=== PATIENT | male | born 1955 | race Hispanic/Latino ===

== ENCOUNTER 2019-10-28 19:11 | Emergency (ER) | payer MEDICARE ==
[~2019-10-28] VITALS: Ht 172.7 cm; Wt 83.9 kg
[~2019-10-28 19:11] MED LIST: ALLOPURINOL100 MG; ATENOLOL25 MG; AVODART0.5 MG PO; DOXAZOSIN MESYLA1 MG; NAPROXEN250 MG; ULTRAM50 MG PO
--- OUTSIDE RECORDS SUMMARY | 2019-10-28 19:16 | XMS REPORT ---
[facility] Address Unknown Phone Unavailable Care Team Providers Care Clinic Charge Nurse Name Role Phone BALDO MONDRAGON Unavailable Unavailable LARY LLAMAS Unavailable Unavailable JABARI MEYER Unavailable Unavailable Payers Payer Name Policy Type Policy Number Effective Date Expiration Date Problems This patient has no known problems. Allergies, Adverse Reactions, Alerts Allergy Name Allergy Type Status Severity Reaction(s) Onset Date Inactive Date Treating Clinician Comments ashley DA Active SV 2016-03-27 00:00:00 Medications This patient has no known medications. Encounters Start Date/Time End Date/Time Encounter Type Admission Type Attending Clinicians Care Facility Care Department Encounter ID 2019-01-06 08:19:31 2019-01-06 08:19:31 Outpatient [facility] [id number] 2018-12-23 08:22:31 2018-12-23 08:22:31 Outpatient [facility] [id number] 2018-12-17 16:57:05 2018-12-17 16:57:05 Outpatient [facility] [id number] 2018-12-16 00:00:00 2018-12-16 00:00:00 Outpatient [facility] [id number] 2018-12-13 00:00:00 2018-12-13 00:00:00 Outpatient [facility] [id number] 2018-12-12 12:13:44 2018-12-12 12:13:44 Emergency [facility] [id number] 2018-12-12 11:35:30 2018-12-12 11:35:30 Emergency [facility] [id number] 2018-12-12 00:00:00 2018-12-12 00:00:00 Outpatient [facility] [id number] 2018-12-12 00:00:00 2018-12-12 00:00:00 Emergency [facility] [id number] 2018-12-12 00:00:00 2018-12-12 00:00:00 Emergency [facility] [id number] Results Test Description Test Time Test Comments Text Results Atomic Results Result Comments - XR HIP W/PEL UNI 2+V 2019-01-24 10:29:00 [facility]: [facility] : 1955 Age/S:63 /M [address] [place] [address] Unit#:[id number] Loc: [place] [address] Phys: Rickey Patiño MD Dis Date: PHONE #: [phone] Status: REG ER FAX #: [phone] Exam Date: 01/24/2019 Reason: trauma, pain EXAMS: CPT CODE: [id number] XR HIP W/PEL UNI 2+V 23579 CLINICAL HISTORY: trauma, pain TECHNIQUE: Neutral and frog leg AP views of the left hip COMPARISON: None FINDINGS: No acute fracture. Left hip joint is not dislocated. Mild bilateral hip degenerative arthrosis. Visualized bony pelvis is intact. Bony trabecular pattern is unremarkable. Bilateral inguinal surgical clips. Atherosclerotic vascular calcification. Regional soft tissues are unremarkable. Degenerative changes of the included lower lumb ar spine. IMPRESSION: No acute fracture or dislocation of the left hip. at 1029 Reported and signed by: Nora Stein D.O. CC: Rickey Patiño MD; Rito Barnes Technologist: Suman Briceno RT(R)(CT) Trnscrpt Data: 01/24/2019 (1029) KoryLDP1 Orig Print D/T: S: 01/24/2019 (1032) PAGE 1 Signed Report - XR KNEE 3 V 2019-01-24 10:29:00 Name: TERESA [facility] : 1955 Age/S:63 /M [address] [place] [address] Unit#:[id number] Loc: [place] [address] Phys: Rickey Patiño MD Dis Date: PHONE #: [phone] Status: REG ER FAX #: [phone] Exam Date: 01/24/2019 Reason: fall EXAMS: CPT CODE: [id number] XR KNEE 3 V LT 46585 CLINICAL HISTORY: Pain status post fall TECHNIQUE: AP, oblique, and lateral views of the left knee COMPARISON: None FINDINGS: No acute fracture or dislocation. Bony trabecular pattern is unremarkable. No cortical destruction or periosteal reaction. Joint spaces are preserved. No joint effusion. Atherosclerotic vascular calcification. Prepatellar soft tissue swelling. IMPRESSION: No acute fracture or dislocation. Prepatellar soft tissue swelling. at 1029 Reported and signed by: Nora Stein D.O. CC: Rickey Patiño MD; Rito Barnes Technologist: Suman Briceno RT(R)(CT) Trnscrpt Data: 01/24/2019 (1029) t.ELLIR.LDP1 Orig Print D/T: S: 01/24/2019 (4268) PAGE 1 Signed Report - US ABDOMEN COMPLETE 2018-12-25 10:55:00 Name: TERESA WARD [facility] : 1955 Age/S: 63 / M [address] [facility] Unit #: [id number] Loc: [place] [address] Phys: Davida Sanchez MD Acct: [id number] Dis Date: Status: REG CLI PHONE #: [phone] Exam Date: 12/25/2018 1018 FAX #: [phone] Reason: CIRRHOSIS EXAMS: CPT CODE: [id number] US ABDOMEN COMPLETE 71290 TECHNIQUE - US ABDOMEN COMPLETE . COMPARISON: CT abdomen and pelvis 01/04/2016 HISTORY: 63 years Male CIRRHOSIS FINDINGS: Pancreas: Normal in size and echogenicity. No focal lesions or pancreatic duct dilatation. Liver: Normal size. Normal echogenicity. No focal lesions. Liver measures 15 cm. Normal flow in the portal vein towards the liver. Gallbladder: Cholecystectomy. Smith iary ducts: No intra or extrahepatic biliary dilatation. Common bile duct (CBD) measures 0.22 cm. Spleen: Normal echogenicity. Spleen measures 8.9 x 4.3 x 3.7 cm.. Right Kidney: 11.6 x 4.8 x 5.0 cm. Normal echogenicity. 4 mm right renal pelvic stone. No hydronephrosis. No focal lesions. Left Kidney: 10.8 x 5.7 x 5.5 cm. Normal echogenicity. No stones. No hydronephrosis. 1.5 cm left kidney cyst. Small amount of perinephric fluid bilaterally. Other: No ascites. No inferior vena cava abnormalities. Abdominal aorta is not well-seen. IMPRESSION: Cholecystectomy. 4 mm right renal pelvic stone. 1.5 cm left kidney cyst. at 1051 Reported and signed by: Rito Aguilera M.D. PAGE 1 Signed Report (CONTINUED) Name: TERESA WARD [facility] : 1955 Age/S: 63 / M [address] [facility] Unit #: [id number] Loc: [place] [address] Phys: Davida Sanchez MD Acct: [id number] Dis Date: Status: REG CLI PHONE #: [phone] Exam Date: 1018 FAX #: [phone] Reason: CIRRHOSIS EXAMS: CPT CODE: [id number] US ABDOMEN COMPLETE 64407 <Continued> CC: Davida Sanchez MD; Rito Barnes [facility] Technologist: EDWARD DYE RT(R),[facility]MS [facility] Date/Time: 12/25/2018 (1055) t.FLORIDALMA Orig Print D/T: S: 12/25/2018 (1057) Probe: PAGE 2 Signed Report TISSUE EXAM 2017-02-26 16:06:00 Surgical Pathology Report Case: [id number] Authorizing Provider: Aaron Mccullough Collected: 02/22/2017 1637 Ord ering Location: [address] Received: 02/24/2017 0912 Service Pathologist: Lela Saravia MD Specimen: Biopsy, Esophagus LOWER ESOPHAGUS, ENDOSCOPIC BIOPSY - SQUAMOUS MUCOSA WITH MILD EDEMA - NO FEATURES OF REFLUX OR EOSINOPHILIC ESOPHAGITIS SEEN - NO COLUMNAR MUCOSA PRESENT - NO DYSPLASIA OR MALIGNANCY SEENThe case was presented at the departmental consensus conference on 02/26/17 Signing Pathologist Direct Phone Line: [phone] signed by Lela Saravia MD on 02/26/2017 at 4:06 [id number] biopsyReceived in formalin labeled "biopsy, esophagus" are four fragments measuring 0.9 x 0.8 x 0.1 cm in aggregate. Entirely submitted A1. DB/plPERFORMED COMPREHENSIVE METABOLIC PANEL 2017-02-23 06:01:00 TOTAL PROTEIN (BEAKER) (test zxqp=891) 6.8 gm/dL 6.0-8.3 ALBUMIN (BEAKER) (test okkn=8691) 3.4 g/dL 3.5-5.0 ALKALINE PHOSPHATASE (BEAKER) (test vowc=024) 87 U/L 40-150 BILIRUBIN TOTAL (BEAKER) (test qxuy=023) 0.8 mg/dL 0.2-1.2 SODIUM (BEAKER) (test duin=317) 141 meq/L 136-145 POTASSIUM (BEAKER) (test xsfv=200) 3.9 meq/L 3.5-5.1 CHLORIDE (BEAKER) (test nnmk=009) 108 meq/L 98-107 CO2 (BEAKER) (test lozc=497) 23 meq/L 22-29 BLOOD UREA NITROGEN (BEAKER) (test gzsz=278) 19 mg/dL 7-21 CREATININE (BEAKER) (test wnxi=120) 0.94 mg/dL 0.57-1.25 GLUCOSE RANDOM (BEAKER) (test rnts=408) 83 mg/dL 70-105 CALCIUM (BEAKER) (test lynw=281) 8.7 mg/dL 8.4-10.2 AST (SGOT) (BEAKER) (test fzis=029) 18 U/L 5-34 ALT (SGPT) (BEAKER) (test jrqf=253) 12 U/L 6-55 EGFR (BEAKER) (test pump=8771) 81 mL/min/1.73 sq m ESTIMATED GFR IS NOT ACCURATE CREATININE CLEARANCE IN PREDICTING GLOMERULAR FILTRATION RATE. ESTIMATED GFR IS NOT APPLICABLE FOR DIALYSIS PATIENTS. CBC W/PLT COUNT & AUTO [id number] 05:28:00* Test Item Value Reference Range Comments WHITE BLOOD CELL COUNT (BEAKER) (test efwq=812) 5.7 K/ L 3.5-10.5 RED BLOOD CELL COUNT (BEAKER) (test cuds=464) 3.17 M/ L 4.63-6.08 HEMOGLOBIN (BEAKER) (test tjbh=908) 9.5 GM/DL 13.7-17.5 HEMATOCRIT (BEAKER) (test spya=565) 30.3 % 40.1-51.0 MEAN CORPUSCULAR VOLUME (BEAKER) (test gcyc=249) 95.6 fL 79.0-92.2 MEAN CORPUSCULAR HEMOGLOBIN (BEAKER) (test efvq=371) 30.0 pg 25.7-32.2 MEAN CORPUSCULAR HEMOGLOBIN CONC (BEAKER) (test bjxe=884) 31.4 GM/DL 32.3-36.5 RED CELL DISTRIBUTION WIDTH (BEAKER) (test erem=704) 15.6 % 11.6-14.4 PLATELET COUNT (BEAKER) (test xout=969) 166 K/CU MM 150-450 MEAN PLATELET VOLUME (BEAKER) (test olxt=710) 9.0 fL 9.4-12.4 NUCLEATED RED BLOOD CELLS (BEAKER) (test htor=128) 0 /100 WBC 0-0 NEUTROPHILS RELATIVE PERCENT (BEAKER) (test tlkb=064) 65 % LYMPHOCYTES RELATIVE PERCENT (BEAKER) (test lqhq=022) 21 % MONOCYTES RELATIVE PERCENT (BEAKER) (test jjpd=372) 10 % EOSINOPHILS RELATIVE PERCENT (BEAKER) (test hlra=993) 3 % BASOPHILS RELATIVE PERCENT (BEAKER) (test xqee=749) 1 % NEUTROPHILS ABSOLUTE COUNT (BEAKER) (test ithz=293) 3.70 K/ L 1.78-5.38 LYMPHOCYTES ABSOLUTE COUNT (BEAKER) (test vvdx=435) 1.21 K/ L 1.32-3.57 MONOCYTES ABSOLUTE COUNT (BEAKER) (test sihi=305) 0.58 K/ L 0.30-0.82 EOSINOPHILS ABSOLUTE COUNT (BEAKER) (test abyu=126) 0.16 K/ L 0.04-0.54 BASOPHILS ABSOLUTE COUNT (BEAKER) (test zdtt=613) 0.04 K/ L 0.01-0.08 IMMATURE GRANULOCYTES-RELATIVE PERCENT (BEAKER) (test mkwg=6753) 0 % 0-1 [id number] 06:49:00* Test Item Value Reference Range Comments PHOSPHORUS (BEAKER) (test movg=602) 4.0 mg/dL 2.3-4.7 [id number] 06:49:00* Test Item Value Reference Range Comments MAGNESIUM (BEAKER) (test xdzg=029) 1.9 mg/dL 1.6-2.6 COMPREHENSIVE METABOLIC [id number] 06:49:00* Test Item Value Reference Range Comments TOTAL PROTEIN (BEAKER) (test qipt=845) 7.2 gm/dL 6.0-8.3 ALBUMIN (BEAKER) (test kzwk=3026) 3.6 g/dL 3.5-5.0 ALKALINE PHOSPHATASE (BEAKER) (test vavi=650) 89 U/L 40-150 BILIRUBIN TOTAL (BEAKER) (test cxzl=584) 1.1 mg/dL 0.2-1.2 SODIUM (BEAKER) (test daes=495) 139 meq/L 136-145 POTASSIUM (BEAKER) (test thdn=708) 3.8 meq/L 3.5-5.1 CHLORIDE (BEAKER) (test molz=969) 106 meq/L 98-107 CO2 (BEAKER) (test lreg=300) 24 meq/L 22-29 BLOOD UREA NITROGEN (BEAKER) (test wito=700) 24 mg/dL 7-21 CREATININE (BEAKER) (test hdab=611) 1.15 mg/dL 0.57-1.25 GLUCOSE RANDOM (BEAKER) (test vxdo=868) 88 mg/dL 70-105 CALCIUM (BEAKER) (test cypw=782) 8.8 mg/dL 8.4-10.2 AST (SGOT) (BEAKER) (test qdpt=360) 19 U/L 5-34 ALT (SGPT) (BEAKER) (test ihmc=653) 15 U/L 6-55 EGFR (BEAKER) (test tgyv=6472) 64 mL/min/1.73 sq m ESTIMATED GFR IS NOT ACCURATE CREATININE CLEARANCE IN PREDICTING GLOMERULAR FILTRATION RATE. ESTIMATED GFR IS NOT APPLICABLE FOR DIALYSIS PATIENTS. CBC W/PLT COUNT & AUTO [id number] 05:59:00* Test Item Value Reference Range Comments WHITE BLOOD CELL COUNT (BEAKER) (test kosy=807) 5.1 K/ L 3.5-10.5 RED BLOOD CELL COUNT (BEAKER) (test hsnk=623) 3.28 M/ L 4.63-6.08 HEMOGLOBIN (BEAKER) (test imss=582) 9.9 GM/DL 13.7-17.5 HEMATOCRIT (BEAKER) (test twod=010) 31.9 % 40.1-51.0 MEAN CORPUSCULAR VOLUME (BEAKER) (test qfon=748) 97.3 fL 79.0-92.2 MEAN CORPUSCULAR HEMOGLOBIN (BEAKER) (test hhqn=634) 30.2 pg 25.7-32.2 MEAN CORPUSCULAR HEMOGLOBIN CONC (BEAKER) (test gnlu=429) 31.0 GM/DL 32.3-36.5 RED CELL DISTRIBUTION WIDTH (BEAKER) (test dfoz=194) 15.9 % 11.6-14.4 PLATELET COUNT (BEAKER) (test wrml=487) 164 K/CU MM 150-450 MEAN PLATELET VOLUME (BEAKER) (test osdc=003) 9.1 fL 9.4-12.4 NUCLEATED RED BLOOD CELLS (BEAKER) (test xyex=237) 0 /100 WBC 0-0 NEUTROPHILS RELATIVE PERCENT (BEAKER) (test ebuc=833) 59 % LYMPHOCYTES RELATIVE PERCENT (BEAKER) (test qccv=177) 25 % MONOCYTES RELATIVE PERCENT (BEAKER) (test axsx=077) 11 % EOSINOPHILS RELATIVE PERCENT (BEAKER) (test nrme=033) 4 % BASOPHILS RELATIVE PERCENT (BEAKER) (test vzdk=220) 1 % NEUTROPHILS ABSOLUTE COUNT (BEAKER) (test iyzc=398) 3.03 K/ L 1.78-5.38 LYMPHOCYTES ABSOLUTE COUNT (BEAKER) (test drey=339) 1.28 K/ L 1.32-3.57 MONOCYTES ABSOLUTE COUNT (BEAKER) (test xtfy=272) 0.57 K/ L 0.30-0.82 EOSINOPHILS ABSOLUTE COUNT (BEAKER) (test gtvn=695) 0.19 K/ L 0.04-0.54 BASOPHILS ABSOLUTE COUNT (BEAKER) (test kotr=976) 0.04 K/ L 0.01-0.08 IMMATURE GRANULOCYTES-RELATIVE PERCENT (BEAKER) (test thwv=3499) 0 % 0-1 [id number] 03:59:00* Test Item Value Reference Range Comments PROTIME (BEAKER) (test lnxz=382) 15.1 seconds 11.7-14.7 INR (BEAKER) (test hejy=745) 1.2 <=5.9 PARTIAL THROMBOPLASTIN TIME (BEAKER) (test pxuc=682) 28.6 seconds 22.5-36.0 RECOMMENDED COUMADIN/WARFARIN INR THERAPY RANGESSTANDARD DOSE: 2.0 - 3.0 Inclu prabhakar: PROPHYLAXIS for venous thrombosis, systemic embolization; TREATMENT for marian ous thrombosis and/or pulmonary embolus.HIGH RISK: Target INR is 2.5-3.5 for pat ients with mechanical heart valves.[id number] 03:54:00* Test Item Value Reference Range Comments LIPASE (BEAKER) (test olws=043) 38 U/L 8-78 [id number] 03:54:00* Test Item Value Reference Range Comments AMYLASE (BEAKER) (test hutb=727) 68 U/L 25-125 COMPREHENSIVE METABOLIC [id number] 03:54:00* Test Item Value Reference Range Comments TOTAL PROTEIN (BEAKER) (test fnqf=047) 7.9 gm/dL 6.0-8.3 ALBUMIN (BEAKER) (test bmzu=1271) 3.9 g/dL 3.5-5.0 ALKALINE PHOSPHATASE (BEAKER) (test nxgy=675) 106 U/L 40-150 BILIRUBIN TOTAL (BEAKER) (test iigz=424) 0.9 mg/dL 0.2-1.2 SODIUM (BEAKER) (test rrvx=475) 142 meq/L 136-145 POTASSIUM (BEAKER) (test majc=161) 3.9 meq/L 3.5-5.1 CHLORIDE (BEAKER) (test lcfm=256) 105 meq/L 98-107 CO2 (BEAKER) (test bqcf=438) 25 meq/L 22-29 BLOOD UREA NITROGEN (BEAKER) (test kycl=811) 20 mg/dL 7-21 CREATININE (BEAKER) (test kfuh=444) 1.05 mg/dL 0.57-1.25 GLUCOSE RANDOM (BEAKER) (test fdph=231) 103 mg/dL 70-105 CALCIUM (BEAKER) (test dbuv=269) 9.6 mg/dL 8.4-10.2 AST (SGOT) (BEAKER) (test vtbp=575) 22 U/L 5-34 ALT (SGPT) (BEAKER) (test kzka=715) 19 U/L 6-55 EGFR (BEAKER) (test nqvm=0852) 71 mL/min/1.73 sq m ESTIMATED GFR IS NOT ACCURATE CREATININE CLEARANCE IN PREDICTING GLOMERULAR FILTRATION RATE. ESTIMATED GFR IS NOT APPLICABLE FOR DIALYSIS PATIENTS. HEPATIC FUNCTION [id number] 03:54:00* Test Item Value Reference Range Comments TOTAL PROTEIN (BEAKER) (test jqkp=004) 7.9 gm/dL 6.0-8.3 ALBUMIN (BEAKER) (test jokq=2002) 3.9 g/dL 3.5-5.0 BILIRUBIN TOTAL (BEAKER) (test xzxz=779) 0.9 mg/dL 0.2-1.2 BILIRUBIN DIRECT (BEAKER) (test yhaj=612) 0.4 mg/dL 0.1-0.5 ALKALINE PHOSPHATASE (BEAKER) (test eeol=539) 106 U/L 40-150 AST (SGOT) (BEAKER) (test endi=024) 22 U/L 5-34 ALT (SGPT) (BEAKER) (test ysfv=633) 19 U/L 6-55 CBC W/PLT COUNT & AUTO [id number] 03:41:00* Test Item Value Reference Range Comments WHITE BLOOD CELL COUNT (BEAKER) (test nqpg=449) 6.7 K/ L 3.5-10.5 RED BLOOD CELL COUNT (BEAKER) (test cpmw=010) 3.69 M/ L 4.63-6.08 HEMOGLOBIN (BEAKER) (test mjpw=681) 10.9 GM/DL 13.7-17.5 HEMATOCRIT (BEAKER) (test samz=664) 35.2 % 40.1-51.0 MEAN CORPUSCULAR VOLUME (BEAKER) (test asyx=218) 95.4 fL 79.0-92.2 MEAN CORPUSCULAR HEMOGLOBIN (BEAKER) (test vins=683) 29.5 pg 25.7-32.2 MEAN CORPUSCULAR HEMOGLOBIN CONC (BEAKER) (test hxvo=582) 31.0 GM/DL 32.3-36.5 RED CELL DISTRIBUTION WIDTH (BEAKER) (test gaqn=504) 15.7 % 11.6-14.4 PLATELET COUNT (BEAKER) (test obix=114) 188 K/CU MM 150-450 MEAN PLATELET VOLUME (BEAKER) (test itqx=391) 8.8 fL 9.4-12.4 NUCLEATED RED BLOOD CELLS (BEAKER) (test ocqs=762) 0 /100 WBC 0-0 NEUTROPHILS RELATIVE PERCENT (BEAKER) (test wllv=130) 66 % LYMPHOCYTES RELATIVE PERCENT (BEAKER) (test qhag=582) 22 % MONOCYTES RELATIVE PERCENT (BEAKER) (test attn=055) 10 % EOSINOPHILS RELATIVE PERCENT (BEAKER) (test bzut=272) 1 % BASOPHILS RELATIVE PERCENT (BEAKER) (test ywrx=452) 1 % NEUTROPHILS ABSOLUTE COUNT (BEAKER) (test achi=051) 4.41 K/ L 1.78-5.38 LYMPHOCYTES ABSOLUTE COUNT (BEAKER) (test cffi=521) 1.43 K/ L 1.32-3.57 MONOCYTES ABSOLUTE COUNT (BEAKER) (test aqqj=869) 0.66 K/ L 0.30-0.82 EOSINOPHILS ABSOLUTE COUNT (BEAKER) (test rwkt=687) 0.09 K/ L 0.04-0.54 BASOPHILS ABSOLUTE COUNT (BEAKER) (test vspm=446) 0.04 K/ L 0.01-0.08 IMMATURE GRANULOCYTES-RELATIVE PERCENT (BEAKER) (test bgfa=4575) 0 % 0-1 HEMOGLOBIN AND [id number] 11:59:00* Test Item Value Reference Range Comments HEMOGLOBIN (BEAKER) (test onfj=930) 10.0 GM/DL 13.7-17.5 HEMATOCRIT (BEAKER) (test wunp=466) 31.5 % 40.1-51.0 TISSUE [id number] 11:34:00Surgical Pathology Report Case: [id number] Authorizing Provider: Leeanna Ma MD Collected: 02/03/2017 3082 Ordering Location: [address] Received: 02/03/2017 8573 Pathologist: Lela Saravia MD Specimens: A) - Antrum, bx r/o h pylori evaluate atrophic gastritis B) - Gastric, BX R/O H PYLORI EVALUATE ATROPHIC GASTRITIS This addendum is issued to report the result of immunohistochemical stain for Helicobacter pylori on specimen A: - NegativeCPT code: [id number] electronically signed by Lela Saravia MD on 02/05/2017 at 11:34 AMA.STOMACH, ANTRUM, ENDOSCOPIC BIOPSY: - CHRONIC GASTRITIS WITH MICROFOCAL ACTIVITY AND VERY FOCAL INTESTINAL METAPLASIA - NO HELICOBACTER PYLORI-LIKE ORGANISMS SEEN ON WARTHIN-STARRY STAIN - BACTERIAL COLONIES. NON-SPECIFIC - NEGATIVE FOR DYSPLASIA OR MALIGNANCY B.STOMACH, ENDOSCOPIC BIOPSY: - OXYNTIC MUCOSA WITH MILD CHRONIC GASTRITIS - NO FEATURES OF ATROPHIC GASTRITIS SEEN - NO HELICOBACTER PYLORI-LIKE ORGANISMS SEEN ON WARTHIN-STARRY STAIN - NEGATIVE FOR DYSPLASIA OR MALIGNANCY 67366 X 2; 63447 X 2Melena, rule out H. Pylori, rule out atrophic gastritis A. Antrum biopsy B. Gastric biopsy Specimen A: Received in formalin labeled "antrum" are two fragments each measuring 0.2 cm in greatest dimension. The specimen is entirely submitted in A1.Specimen B: Received in formalin labeled "gastric" is a single fragment measuring 0.4 cm in greatest dimension. The specimen is entirely submitted in B1. DB/ew PERFORMEDThe following special studies were performed on this case and the interpretation is incorporated in the diagnostic report above:WARTHIN-STARRY X 2HEMOGLOBIN AND [id number] 04:18:00* Test Item Value Reference Range Comments HEMOGLOBIN (BEAKER) (test mcbv=980) 8.2 GM/DL 13.7-17.5 HEMATOCRIT (BEAKER) (test lpnw=238) 26.0 % 40.1-51.0 CBC (HEMOGRAM ONLY)2017-02-05 04:18:00* Test Item Value Reference Range Comments WHITE BLOOD CELL COUNT (BEAKER) (test vbxj=849) 5.3 K/ L 3.5-10.5 RED BLOOD CELL COUNT (BEAKER) (test aeyh=847) 2.72 M/ L 4.63-6.08 HEMOGLOBIN (BEAKER) (test wntb=268) 8.2 GM/DL 13.7-17.5 HEMATOCRIT (BEAKER) (test qdxf=497) 26.0 % 40.1-51.0 MEAN CORPUSCULAR VOLUME (BEAKER) (test mqal=088) 95.6 fL 79.0-92.2 MEAN CORPUSCULAR HEMOGLOBIN (BEAKER) (test ynqy=412) 30.1 pg 25.7-32.2 MEAN CORPUSCULAR HEMOGLOBIN CONC (BEAKER) (test icaw=739) 31.5 GM/DL 32.3-36.5 RED CELL DISTRIBUTION WIDTH (BEAKER) (test tuhr=451) 15.3 % 11.6-14.4 PLATELET COUNT (BEAKER) (test psta=953) 124 K/CU MM 150-450 MEAN PLATELET VOLUME (BEAKER) (test jttf=027) 9.6 fL 9.4-12.4 NUCLEATED RED BLOOD CELLS (BEAKER) (test vzpr=931) 0 /100 WBC 0-0 HEMOGLOBIN AND [id number] 21:26:00* Test Item Value Reference Range Comments HEMOGLOBIN (BEAKER) (test wirk=490) 7.7 GM/DL 13.7-17.5 HEMATOCRIT (BEAKER) (test jvze=100) 24.6 % 40.1-51.0 [id number] 19:21:00* Test Item Value Reference Range Comments FERRITIN (BEAKER) (test piaa=489) 36 ng/mL 5-275 Effective 05/24/2014: Reference Range ChangeNew: Male 5-275 Previous: Male 22-322 Female 5-275 Female 10-291 IRON, TIBC, % SAT. (WITHOUT FERRITIN)2017-02-04 19:01:00* Test Item Value Reference Range Comments IRON (BEAKER) (test johi=584) 12 ug/dL 40-160 TOTAL IRON BINDING CAPACITY (BEAKER) (test cypl=104) 158 ug/dL 250-450 IRON % SATURATION (2) (BEAKER) (test sqzt=6755) 8 % 20-55 HEMOGLOBIN AND [id number] 18:44:00* Test Item Value Reference Range Comments HEMOGLOBIN (BEAKER) (test jqam=681) 8.1 GM/DL 13.7-17.5 HEMATOCRIT (BEAKER) (test irev=179) 25.3 % 40.1-51.0 HEMOGLOBIN AND [id number] 10:09:00* Test Item Value Reference Range Comments HEMOGLOBIN (BEAKER) (test rdmw=963) 8.3 GM/DL 13.7-17.5 HEMATOCRIT (BEAKER) (test lfiu=220) 27.0 % 40.1-51.0 BASIC METABOLIC [id number] 04:32:00* Test Item Value Reference Range Comments SODIUM (BEAKER) (test tjds=761) 140 meq/L 136-145 POTASSIUM (BEAKER) (test tcot=559) 4.2 meq/L 3.5-5.1 CHLORIDE (BEAKER) (test jbnq=600) 112 meq/L 98-107 CO2 (BEAKER) (test gelc=577) 23 meq/L 22-29 BLOOD UREA NITROGEN (BEAKER) (test nebl=908) 16 mg/dL 7-21 CREATININE (BEAKER) (test nhov=255) 0.87 mg/dL 0.57-1.25 GLUCOSE RANDOM (BEAKER) (test svoz=791) 87 mg/dL 70-105 CALCIUM (BEAKER) (test sxuf=113) 7.8 mg/dL 8.4-10.2 EGFR (BEAKER) (test ahda=9054) 89 mL/min/1.73 sq m ESTIMATED GFR IS NOT ACCURATE CREATININE CLEARANCE IN PREDICTING GLOMERULAR FILTRATION RATE. ESTIMATED GFR IS NOT APPLICABLE FOR DIALYSIS PATIENTS. [id number] 04:30:00* Test Item Value Reference Range Comments PHOSPHORUS (BEAKER) (test hmdo=559) 2.8 mg/dL 2.3-4.7 [id number] 04:30:00* Test Item Value Reference Range Comments MAGNESIUM (BEAKER) (test ogjr=572) 1.9 mg/dL 1.6-2.6 PT/[id number] 04:20:00* Test Item Value Reference Range Comments PROTIME (BEAKER) (test nzgq=992) 16.1 seconds 11.7-14.7 INR (BEAKER) (test lcox=987) 1.3 <=5.9 PARTIAL THROMBOPLASTIN TIME (BEAKER) (test gutd=512) 33.7 seconds 22.5-36.0 RECOMMENDED COUMADIN/WARFARIN INR THERAPY RANGESSTANDARD DOSE: 2.0 - 3.0 Inclu prabhakar: PROPHYLAXIS for venous thrombosis, systemic embolization; TREATMENT for marian ous thrombosis and/or pulmonary embolus.HIGH RISK: Target INR is 2.5-3.5 for pat ients with mechanical heart valves.PROTHROMBIN [id number] 04:19:00* Test Item Value Reference Range Comments PROTIME (BEAKER) (test zzup=683) 16.1 seconds 11.7-14.7 INR (BEAKER) (test isto=943) 1.3 <=5.9 RECOMMENDED COUMADIN/WARFARIN INR THERAPY RANGESSTANDARD DOSE: 2.0 - 3.0 Inclu prabhakar: PROPHYLAXIS for venous thrombosis, systemic embolization; TREATMENT for marian ous thrombosis and/or pulmonary embolus.HIGH RISK: Target INR is 2.5-3.5 for pat ients with mechanical heart valves.CBC (HEMOGRAM ONLY)2017-02-04 04:10:00* Test Item Value Reference Range Comments WHITE BLOOD CELL COUNT (BEAKER) (test gimr=321) 7.6 K/ L 3.5-10.5 RED BLOOD CELL COUNT (BEAKER) (test irgv=150) 2.66 M/ L 4.63-6.08 HEMOGLOBIN (BEAKER) (test hwtn=908) 7.9 GM/DL 13.7-17.5 HEMATOCRIT (BEAKER) (test voap=782) 25.5 % 40.1-51.0 MEAN CORPUSCULAR VOLUME (BEAKER) (test aopd=816) 95.9 fL 79.0-92.2 MEAN CORPUSCULAR HEMOGLOBIN (BEAKER) (test bwwk=001) 29.7 pg 25.7-32.2 MEAN CORPUSCULAR HEMOGLOBIN CONC (BEAKER) (test gecs=843) 31.0 GM/DL 32.3-36.5 RED CELL DISTRIBUTION WIDTH (BEAKER) (test xghk=142) 15.7 % 11.6-14.4 PLATELET COUNT (BEAKER) (test uaxq=307) 134 K/CU MM 150-450 MEAN PLATELET VOLUME (BEAKER) (test krjq=626) 9.3 fL 9.4-12.4 NUCLEATED RED BLOOD CELLS (BEAKER) (test hjqu=424) 0 /100 WBC 0-0 HEMOGLOBIN AND [id number] 04:09:00* Test Item Value Reference Range Comments HEMOGLOBIN (BEAKER) (test xeaj=921) 8.0 GM/DL 13.7-17.5 HEMATOCRIT (BEAKER) (test tblm=545) 25.2 % 40.1-51.0 HEMOGLOBIN AND [id number] 20:58:00* Test Item Value Reference Range Comments HEMOGLOBIN (BEAKER) (test nypb=703) 8.0 GM/DL 13.7-17.5 HEMATOCRIT (BEAKER) (test nxyo=236) 25.6 % 40.1-51.0 HEMOGLOBIN AND [id number] 12:21:00* Test Item Value Reference Range Comments HEMOGLOBIN (BEAKER) (test oszz=798) 8.7 GM/DL 13.7-17.5 HEMATOCRIT (BEAKER) (test cafw=230) 27.6 % 40.1-51.0 HEMOGLOBIN AND [id number] 05:58:00* Test Item Value Reference Range Comments HEMOGLOBIN (BEAKER) (test ejok=876) 8.3 GM/DL 13.7-17.5 HEMATOCRIT (BEAKER) (test lpdp=192) 26.3 % 40.1-51.0 [id number] 05:55:00* Test Item Value Reference Range Comments PHOSPHORUS (BEAKER) (test sexb=084) 2.8 mg/dL 2.3-4.7 [id number] 05:55:00* Test Item Value Reference Range Comments MAGNESIUM (BEAKER) (test pvss=936) 2.0 mg/dL 1.6-2.6 BASIC METABOLIC [id number] 05:55:00* Test Item Value Reference Range Comments SODIUM (BEAKER) (test kugg=565) 140 meq/L 136-145 POTASSIUM (BEAKER) (test ayum=084) 4.1 meq/L 3.5-5.1 CHLORIDE (BEAKER) (test livs=639) 112 meq/L 98-107 CO2 (BEAKER) (test fmcu=172) 22 meq/L 22-29 BLOOD UREA NITROGEN (BEAKER) (test agbs=360) 19 mg/dL 7-21 CREATININE (BEAKER) (test umxa=989) 0.86 mg/dL 0.57-1.25 GLUCOSE RANDOM (BEAKER) (test eaks=094) 87 mg/dL 70-105 CALCIUM (BEAKER) (test bbvx=381) 8.0 mg/dL 8.4-10.2 EGFR (BEAKER) (test xggb=0717) 90 mL/min/1.73 sq m ESTIMATED GFR IS NOT ACCURATE CREATININE CLEARANCE IN PREDICTING GLOMERULAR FILTRATION RATE. ESTIMATED GFR IS NOT APPLICABLE FOR DIALYSIS PATIENTS. PT/[id number] 05:50:00* Test Item Value Reference Range Comments PROTIME (BEAKER) (test tlmy=886) 14.3 seconds 11.7-14.7 INR (BEAKER) (test ovrk=726) 1.1 <=5.9 PARTIAL THROMBOPLASTIN TIME (BEAKER) (test fvrh=933) 28.6 seconds 22.5-36.0 RECOMMENDED COUMADIN/WARFARIN INR THERAPY RANGESSTANDARD DOSE: 2.0 - 3.0 Inclu prabhakar: PROPHYLAXIS for venous thrombosis, systemic embolization; TREATMENT for marian ous thrombosis and/or pulmonary embolus.HIGH RISK: Target INR is 2.5-3.5 for pat ients with mechanical heart valves.HEMOGLOBIN AND [id number] 00:18:00 * Test Item Value Reference Range Comments HEMOGLOBIN (BEAKER) (test lihz=307) 8.2 GM/DL 13.7-17.5 HEMATOCRIT (BEAKER) (test ezke=595) 26.0 % 40.1-51.0 HEMOGLOBIN AND [id number] 18:59:00* Test Item Value Reference Range Comments HEMOGLOBIN (BEAKER) (test sbxv=062) 8.9 GM/DL 13.7-17.5 HEMATOCRIT (BEAKER) (test cbcy=268) 28.1 % 40.1-51.0 HEMOGLOBIN AND [id number] 13:15:00* Test Item Value Reference Range Comments HEMOGLOBIN (BEAKER) (test jkuo=836) 8.9 GM/DL 13.7-17.5 HEMATOCRIT (BEAKER) (test epub=787) 28.2 % 40.1-51.0 CBC (HEMOGRAM ONLY)2017-02-02 07:05:00* Test Item Value Reference Range Comments WHITE BLOOD CELL COUNT (BEAKER) (test uncq=271) 5.9 K/ L 3.5-10.5 RED BLOOD CELL COUNT (BEAKER) (test dqml=245) 2.70 M/ L 4.63-6.08 HEMOGLOBIN (BEAKER) (test xojf=854) 8.1 GM/DL 13.7-17.5 HEMATOCRIT (BEAKER) (test yfwm=211) 25.2 % 40.1-51.0 MEAN CORPUSCULAR VOLUME (BEAKER) (test ajfh=360) 93.3 fL 79.0-92.2 MEAN CORPUSCULAR HEMOGLOBIN (BEAKER) (test kled=533) 30.0 pg 25.7-32.2 MEAN CORPUSCULAR HEMOGLOBIN CONC (BEAKER) (test vvyx=474) 32.1 GM/DL 32.3-36.5 RED CELL DISTRIBUTION WIDTH (BEAKER) (test buud=278) 15.4 % 11.6-14.4 PLATELET COUNT (BEAKER) (test hgwl=395) 124 K/CU MM 150-450 MEAN PLATELET VOLUME (BEAKER) (test oyzs=194) 9.4 fL 9.4-12.4 NUCLEATED RED BLOOD CELLS (BEAKER) (test tmbs=982) 0 /100 WBC 0-0 [id number] 06:41:00* Test Item Value Reference Range Comments PHOSPHORUS (BEAKER) (test sgxn=402) 2.9 mg/dL 2.3-4.7 [id number] 06:41:00* Test Item Value Reference Range Comments MAGNESIUM (BEAKER) (test senm=947) 2.3 mg/dL 1.6-2.6 BASIC METABOLIC [id number] 06:41:00* Test Item Value Reference Range Comments SODIUM (BEAKER) (test gqri=395) 140 meq/L 136-145 POTASSIUM (BEAKER) (test xcvq=079) 4.0 meq/L 3.5-5.1 CHLORIDE (BEAKER) (test xgjd=285) 110 meq/L 98-107 CO2 (BEAKER) (test ctxc=210) 23 meq/L 22-29 BLOOD UREA NITROGEN (BEAKER) (test fymi=685) 25 mg/dL 7-21 CREATININE (BEAKER) (test noja=639) 0.97 mg/dL 0.57-1.25 GLUCOSE RANDOM (BEAKER) (test gapn=962) 88 mg/dL 70-105 CALCIUM (BEAKER) (test uvoz=052) 8.1 mg/dL 8.4-10.2 EGFR (BEAKER) (test rvws=4291) 78 mL/min/1.73 sq m ESTIMATED GFR IS NOT ACCURATE CREATININE CLEARANCE IN PREDICTING GLOMERULAR FILTRATION RATE. ESTIMATED GFR IS NOT APPLICABLE FOR DIALYSIS PATIENTS. HEMOGLOBIN AND [id number] 06:09:00* Test Item Value Reference Range Comments HEMOGLOBIN (BEAKER) (test qlwm=348) 8.1 GM/DL 13.7-17.5 HEMATOCRIT (BEAKER) (test agbn=537) 25.3 % 40.1-51.0 PROTHROMBIN TIME/[id number] 06:07:00* Test Item Value Reference Range Comments PROTIME (BEAKER) (test vqhx=357) 13.9 seconds 11.7-14.7 INR (BEAKER) (test pivc=422) 1.1 <=5.9 RECOMMENDED COUMADIN/WARFARIN INR THERAPY RANGESSTANDARD DOSE: 2.0 - 3.0 Inclu prabhakar: PROPHYLAXIS for venous thrombosis, systemic embolization; TREATMENT for marian ous thrombosis and/or pulmonary embolus.HIGH RISK: Target INR is 2.5-3.5 for pat ients with mechanical heart valves.PT/[id number] 06:07:00* Test Item Value Reference Range Comments PROTIME (BEAKER) (test hkgf=071) 13.9 seconds 11.7-14.7 INR (BEAKER) (test eepe=580) 1.1 <=5.9 PARTIAL THROMBOPLASTIN TIME (BEAKER) (test zzif=804) 28.6 seconds 22.5-36.0 RECOMMENDED COUMADIN/WARFARIN INR THERAPY RANGESSTANDARD DOSE: 2.0 - 3.0 Inclu prabhakar: PROPHYLAXIS for venous thrombosis, systemic embolization; TREATMENT for marian ous thrombosis and/or pulmonary embolus.HIGH RISK: Target INR is 2.5-3.5 for pat ients with mechanical heart valves.[id number] 00:56:00* Test Item Value Reference Range Comments PARTIAL THROMBOPLASTIN TIME (BEAKER) (test comq=929) 28.2 seconds 22.5-36.0 PROTHROMBIN TIME/[id number] 00:55:00* Test Item Value Reference Range Comments PROTIME (BEAKER) (test ionw=201) 14.3 seconds 11.7-14.7 INR (BEAKER) (test ktlf=117) 1.1 <=5.9 RECOMMENDED COUMADIN/WARFARIN INR THERAPY RANGESSTANDARD DOSE: 2.0 - 3.0 Inclu prabhakar: PROPHYLAXIS for venous thrombosis, systemic embolization; TREATMENT for marian ous thrombosis and/or pulmonary embolus.HIGH RISK: Target INR is 2.5-3.5 for pat ients with mechanical heart valves.[id number] 00:54:00* Test Item Value Reference Range Comments PHOSPHORUS (BEAKER) (test cgje=792) 3.6 mg/dL 2.3-4.7 [id number] 00:54:00* Test Item Value Reference Range Comments MAGNESIUM (BEAKER) (test hser=045) 2.3 mg/dL 1.6-2.6 BASIC METABOLIC [id number] 00:54:00* Test Item Value Reference Range Comments SODIUM (BEAKER) (test qfue=803) 140 meq/L 136-145 POTASSIUM (BEAKER) (test oldk=402) 4.7 meq/L 3.5-5.1 CHLORIDE (BEAKER) (test tvlb=377) 110 meq/L 98-107 CO2 (BEAKER) (test padv=861) 23 meq/L 22-29 BLOOD UREA NITROGEN (BEAKER) (test pimm=496) 30 mg/dL 7-21 CREATININE (BEAKER) (test rklc=889) 1.09 mg/dL 0.57-1.25 GLUCOSE RANDOM (BEAKER) (test nqpf=633) 88 mg/dL 70-105 CALCIUM (BEAKER) (test utri=712) 8.1 mg/dL 8.4-10.2 EGFR (BEAKER) (test oqah=5867) 68 mL/min/1.73 sq m ESTIMATED GFR IS NOT ACCURATE CREATININE CLEARANCE IN PREDICTING GLOMERULAR FILTRATION RATE. ESTIMATED GFR IS NOT APPLICABLE FOR DIALYSIS PATIENTS. HEMOGLOBIN AND [id number] 00:34:00* Test Item Value Reference Range Comments HEMOGLOBIN (BEAKER) (test hbdl=539) 7.5 GM/DL 13.7-17.5 HEMATOCRIT (BEAKER) (test iejq=155) 23.7 % 40.1-51.0 CBC (HEMOGRAM ONLY)2017-02-02 00:34:00* Test Item Value Reference Range Comments WHITE BLOOD CELL COUNT (BEAKER) (test pldv=542) 5.8 K/ L 3.5-10.5 RED BLOOD CELL COUNT (BEAKER) (test yrds=731) 2.51 M/ L 4.63-6.08 HEMOGLOBIN (BEAKER) (test pkrj=488) 7.5 GM/DL 13.7-17.5 HEMATOCRIT (BEAKER) (test zvwq=845) 23.7 % 40.1-51.0 MEAN CORPUSCULAR VOLUME (BEAKER) (test noit=640) 94.4 fL 79.0-92.2 MEAN CORPUSCULAR HEMOGLOBIN (BEAKER) (test vujs=476) 29.9 pg 25.7-32.2 MEAN CORPUSCULAR HEMOGLOBIN CONC (BEAKER) (test ywoq=118) 31.6 GM/DL 32.3-36.5 RED CELL DISTRIBUTION WIDTH (BEAKER) (test insc=203) 15.4 % 11.6-14.4 PLATELET COUNT (BEAKER) (test allo=700) 113 K/CU MM 150-450 MEAN PLATELET VOLUME (BEAKER) (test lvvv=257) 9.2 fL 9.4-12.4 NUCLEATED RED BLOOD CELLS (BEAKER) (test ypkk=810) 0 /100 WBC 0-0 CBC W/PLT COUNT & AUTO [id number] 00:34:00* Test Item Value Reference Range Comments WHITE BLOOD CELL COUNT (BEAKER) (test irfc=197) 5.8 K/ L 3.5-10.5 RED BLOOD CELL COUNT (BEAKER) (test tnan=408) 2.51 M/ L 4.63-6.08 HEMOGLOBIN (BEAKER) (test xyai=499) 7.5 GM/DL 13.7-17.5 HEMATOCRIT (BEAKER) (test uyfr=693) 23.7 % 40.1-51.0 MEAN CORPUSCULAR VOLUME (BEAKER) (test xqof=025) 94.4 fL 79.0-92.2 MEAN CORPUSCULAR HEMOGLOBIN (BEAKER) (test emgt=016) 29.9 pg 25.7-32.2 MEAN CORPUSCULAR HEMOGLOBIN CONC (BEAKER) (test wnhq=762) 31.6 GM/DL 32.3-36.5 RED CELL DISTRIBUTION WIDTH (BEAKER) (test wxoo=602) 15.4 % 11.6-14.4 PLATELET COUNT (BEAKER) (test ajwt=164) 113 K/CU MM 150-450 MEAN PLATELET VOLUME (BEAKER) (test gvrw=213) 9.2 fL 9.4-12.4 NUCLEATED RED BLOOD CELLS (BEAKER) (test zedh=141) 0 /100 WBC 0-0 NEUTROPHILS RELATIVE PERCENT (BEAKER) (test plcl=215) 64 % LYMPHOCYTES RELATIVE PERCENT (BEAKER) (test tktg=622) 26 % MONOCYTES RELATIVE PERCENT (BEAKER) (test sugx=782) 7 % EOSINOPHILS RELATIVE PERCENT (BEAKER) (test oagz=189) 3 % BASOPHILS RELATIVE PERCENT (BEAKER) (test sqcb=827) 0 % NEUTROPHILS ABSOLUTE COUNT (BEAKER) (test mlnw=096) 3.68 K/ L 1.78-5.38 LYMPHOCYTES ABSOLUTE COUNT (BEAKER) (test mzlu=645) 1.47 K/ L 1.32-3.57 MONOCYTES ABSOLUTE COUNT (BEAKER) (test ennc=971) 0.40 K/ L 0.30-0.82 EOSINOPHILS ABSOLUTE COUNT (BEAKER) (test amlg=610) 0.19 K/ L 0.04-0.54 BASOPHILS ABSOLUTE COUNT (BEAKER) (test uynr=051) 0.02 K/ L 0.01-0.08 IMMATURE GRANULOCYTES-RELATIVE PERCENT (BEAKER) (test rtqh=0011) 0 % 0-1 FOREARM RIGHT 2 VIEW [place] [address] Patient Name: TERESA WARD MR #: [id number] : 1955 Age/Sex: 61/M Req #: [id number] Adm Physician: Ordered by: BALDO MONDRAGON MD Report #: [id number] Location: ER Room/Bed: Procedure: [id number] DX/FOREARM RIGHT 2 VIEW Exam Da te: 04/25/17 Exam Time: 1849 REPORT STATUS: Sig yamil FOREARM RIGHT 2 VIEW HISTORY: Dog bite today, mid forearm. C OMPARISON: None available. FINDINGS: Bones: No acute displaced fra cture. Osseous alignment is within normal limits. Joints: Radiocarpal and ulnocarpal and first carpometacarpal degenerative changes. Soft tissue s: Soft tissue swelling of the mid forearm. No radiopaque foreign bodies. Diff use vascular calcifications. IMPRESSION: No acute bony abnormality. No radiopaque foreign bodies. Signed by: DR. Kendall Lundberg MD on 04/25/20 7:30 PM Dictated By: KENDALL LUNDBERG MD 29 Transcribed By: CADEN on 04/25/171929 LEATHER FINISHER Y TO: BALDO MONDRAGON MD LOWER LEG RIGHT [place] [address] Patient Name: TERESA WARD MR #: [id number] : 1955 Age/Sex: 61/M Req #: [id number] Adm Physician: Ordered by: BALDO MONDRAGON MD Report #: [id number] Location: ER Room/Bed: Procedure: [id number] DX/LOWER LEG RIGHT Exam Date: 1 Exam Time: 1849 REPORT STATUS: Signed Right tibia radiographs, 2 views HISTORY: Dog bite, back of mid right s hin today. COMPARISON: None available. FINDINGS: Bones: Medi al malleolus is out of the field of view on AP view. No acute displaced fractu re. Osseous alignment is within normal limits. Joints: Tricompartment al degenerative changes of the knee. Soft tissues: Diffuse vascular calci fications. No radiopaque foreign body. Prepatellar skin thickening. IMPRE SSION: No acute bony abnormality. Signed by: DR. Kendall Lundberg MD on 7:40 PM Dictated By: KENDALL LUNDBERG MD 39 Transcribed By: CADEN on 04/25/171939 COPY TO: BALDO MONDRAGON MD
[2019-10-28] MEDS ORDERED: CLONIDINE HCL 0.2 MG TAB PO ONE (19:30)
[2019-10-28 20:52] VITALS: BP 162/60
[2019-11-01] MEDS ORDERED: ATENOLOL50 MG PO (10:05)
[2019-11-01] MEDS ORDERED: ALLOPURINOL300 MG PO (10:05)
[2019-11-01] MEDS ORDERED: HYDROCHLOROTH12.5 MG PO (10:05)
[2019-11-01] MEDS ORDERED: ASPIR 8181 MG PO (10:05)
[2019-11-01] MEDS ORDERED: FLOMAX0.4 MG PO (10:05)
[2019-11-01] MEDS ORDERED: LIPITOR20 MG PO (10:05)
== END 2019-10-28 21:09 | disposition home or self-care (01) ==
LOC: ER 19:11
DX: I10 Essential (primary) hypertension (principal); M10.9 Gout, unspecified
CPT/HCPCS: 93005; 99282

== ENCOUNTER → 2019-11-02 | Day surgery (SDC) | payer OTHER ==
[2019-10-29 15:22] LABS: BASOPHILS # (AUTO) 0.1 (0.0-0.1); BASOPHILS % 0.8 % (0.0-1.0); EOSINOPHILS # (AUTO) 0.2 (0.0-0.4); EOSINOPHILS % 3.4 % (0.0-6.0); HEMATOCRIT 40.9 % (38.2-49.6); HEMOGLOBIN 13.6 g/dL (14.0-18.0); LYMPHOCYTES # (AUTO) 1.8 (1.0-3.2); LYMPHOCYTES % 27.5 % (18.0-39.1); MEAN CORPUSCULAR HEMOGLOBIN 31.8 pg (28-32); MEAN CORPUSCULAR HGB CONC 33.3 g/dL (31-35); MEAN CORPUSCULAR VOLUME 95.6 fL (81-99); MONOCYTES # (AUTO) 0.7 (0.2-0.8); MONOCYTES % 10.4 % (4.4-11.3); NEUTROPHILS # (AUTO) 3.8 (2.1-6.9); NEUTROPHILS % 57.7 % (38.7-80.0); PLATELET COUNT 136 x10e3/uL (140-360); RED BLOOD COUNT 4.28 x10e6/uL (4.3-5.7); RED CELL DISTRIBUTION WIDTH 13.8 % (11.7-14.4)
[2019-10-29 15:46] LABS: ALBUMIN 3.5 g/dL (3.5-5.0); ALBUMIN/GLOBULIN RATIO 0.8 (0.8-2.0); ANION GAP 10.4 mmol/L (8-16); CALCIUM 9.1 mg/dL (8.4-10.2); CREATININE, SERUM 1.65 mg/dL (0.72-1.25); POTASSIUM 4.4 mmol/L (3.5-5.1)
[2019-11-02] VITALS (8 sets, daily range): BP systolic 91–160; BP diastolic 58–82
[~2019-11-02] MED LIST changes: +ALLOPURINOL300 MG PO; +ALPRAZOLAM 0.5 MG TAB ONE; +ASPIR 8181 MG PO; +ATENOLOL50 MG PO; +DIPHENHYDRAMINE HCL 25 MG CAP ONE; +FENTANYL CITRATE/PF 100MCG/2 ML INJ ONE; +FLOMAX0.4 MG PO; +HEPARIN SOD/SOD CHLORIDE 2,000 ML ONE; +HYDROCHLOROTH12.5 MG PO; +IOPAMIDOL 370 MG/ML 200 ML INFUS..BTL INJ ONE; +LIDOCAINE HCL 2% LOCAL 20 ML VIAL ONE; +LIPITOR20 MG PO; +MIDAZOLAM HCL 2 MG/2 ML VIAL ONE; +SODIUM CHLORIDE 0.9% 1000ML 1,000 ML ONE
--- NOTE | 2019-11-02 12:00 | NUR ---
pt in ACU 8, prepped for procedure. Alert oriented and appropriate, PERRLA, respirations even and unlabored to room air. Pt to BR on arrival to void. Pulses x4 extremities equal and palpable. Cap fill brisk < 3 sec. + modified barbeau and neurovascular function of right wrist. Skin warm and dry integrity appears intact in general. IV 22g started and presents healthy w/o s/s of infiltration or complaint. Abdomen soft and supple. Personal affects with patient. Family not available but reachable contact number present. Pt verbalizes understanding of POC. Educated talent acquisition program manager light use after pre-Op Meds benadryl and xanax given. bed low and locked, side rails up x2 and call light at side. [place] [place]
--- NOTE | 2019-11-02 13:30 | NUR ---
1330pm RECEIVING NOTE [employer]............................................................... Bedside report received from RN. Identifierx2. Alert oriented and appropriate, PERRLA, respirations even and unlabored to room air. Pulses x4 extremities equal and strong. Pedal pulses PT/DP X4 and marked. Cap fill brisk < 3 sec. rt Radial No gross issues [place] pallor pressure or dysrhythmia. TR band down at 1530pm dc at 1600pm. Skin warm and dry integrity appears D/I. IV 22g to LFA presents healthy w/o s/s of infiltration or complaint. Abdomen soft and supple. pt offered toileting, denies need to urinate or defecate. No personal affects with patient. Family XXXXX. Pt and family verbalizes understanding of POC. Currently w/o complaint of pain or need.ds/quinn
--- NOTE | 2019-11-02 14:33 | Operative Report ---
DATE OF PROCEDURE: 11/02/2019 SURGEON: Ranjan Gil MD INDICATIONS: Coronary artery disease, abnormal stress test, and unstable angina. PROCEDURES PERFORMED: 1. Left heart catheterization, selective coronary angiography, left ventriculography. 2. Deployment of right wrist TR band. 3. Conscious sedation administration, hemodynamic and neurological monitoring in recovery by laborer steel handling RN, supervision by MD for 35 minutes. COMPLICATIONS: None. RECOMMENDATIONS: Cardiac resynchronization therapy for left bundle-branch block with congestive heart failure. DESCRIPTION OF PROCEDURE: Access was obtained in the right radial artery. A 5-Sami sheath was placed. 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 Right coronary artery stent was patent. Left coronary system had mild disease. LV end-diastolic pressure of 14. LV ejection fraction 30%. No gradient across the aortic valve on pullback. Right wrist TR band applied. The patient discharged home the same day. Ranjan Gil MD KSB/MODL /[id number]
--- NOTE | 2019-11-02 15:30 | NUR ---
1530p RADIAL COMPRESSION REMOVAL NOTE: Initial Cuff volume 13 cc 1530p -3cc Removed No hematoma/bleeding noted with normal neurovascular function. 1545p -5cc Removed No hematoma/ bleeding noted with normal neurovascular function. 1600p -5cc Removed No hematoma/bleeding noted with normal neurovascular function. Air removal completed. Stasis achieved sterile 2x2,Tegaderm, Coban dressing No hematoma, bleeding noted with normal neurovascular function. Wrist splint in place. Pt instructed on POC. Ds/R
--- NOTE | 2019-11-02 16:00 | NUR ---
1600pm S[facility] BLE[facility] DISCHARGE NURSING NOTE Pt meets DC criteria. Skin D/I assessed for s/s of complication and presence of hematoma. Skin warm, dry, no discolor, and pulses present. IV removed from LFA. Distal tip appears intact. VS WNL. Pt denies pain, sob, or need at this time. Family at BS. Review of discharge paperwork and follow up instructions. verbalized understanding. Pt to wheelchair and transported to front of hospital. Transferred to private vehicle under own strength w/o incident with DC paperwork in hand. -nasim/quinn
== END | disposition home or self-care (01) ==
LOC: CATH LAB 10:55
PROVIDERS: ATTEND Internal Medicine Interventional Cardiology
DX: I25.110 Atherosclerotic heart disease of native coronary artery with unstable angina pectoris (principal); R94.39 Abnormal result of other cardiovascular function study; I44.7 Left bundle-branch block, unspecified; I11.0 Hypertensive heart disease with heart failure; I50.22 Chronic systolic (congestive) heart failure; Z01.812 Encounter for preprocedural laboratory examination; Z11.59 Encounter for screening for other viral diseases; Z79.82 Long term (current) use of aspirin; Z68.31 Body mass index [BMI] 31.0-31.9, adult
CPT/HCPCS: 36415; 80053; 85025; 87635; 93458; 99152; 99153; C1769; C1887; J2001; J2250; J3010; J7030; Q9967

== ENCOUNTER 2019-11-25 10:45 | Inpatient (IN) | payer OTHER ==
[~2019-11-25] VITALS: Ht 162.6 cm; Wt 81.6 kg
[~2019-11-25 10:45] MED LIST changes: -ALPRAZOLAM 0.5 MG TAB ONE; -DIPHENHYDRAMINE HCL 25 MG CAP ONE; -FENTANYL CITRATE/PF 100MCG/2 ML INJ ONE; -HEPARIN SOD/SOD CHLORIDE 2,000 ML ONE; -IOPAMIDOL 370 MG/ML 200 ML INFUS..BTL INJ ONE; -LIDOCAINE HCL 2% LOCAL 20 ML VIAL ONE; -MIDAZOLAM HCL 2 MG/2 ML VIAL ONE; -SODIUM CHLORIDE 0.9% 1000ML 1,000 ML ONE
--- OUTSIDE RECORDS SUMMARY | 2019-11-25 10:48 | XMS REPORT | Summary of Care ---
Author Author [facility] - [facility] Organization [facility] - [facility] Address Unknown Phone Unavailable Encounter HQ Bennyr_evangelina(FIN) [id number] Date(s): 04/11/17 - 04/11/17 [facility] Outpatient Imaging - [place] [address] [place] [phone] Discharge Disposition: Home or Self Care Attending Physician: Ranjan Gil MD Vital Signs No data available for this section Problem List Condition Effective Dates Status Health Status Informan t Aortic Resolved aneurysm(Confirmed) BPH(Confirmed) Active Gout(Confirmed) Active Hypertension(Confirm Active ed) Allergies, Adverse Reactions, Alerts Substance Reaction Severity Status Procardia Active Medications No data available for this section Results No data available for this section Immunizations Given and Recorded Vaccine Date Status Refusal Reason diphtheria/pertussis, acel/tetanus adult 03/23/14 Given Procedures Procedure Date Related Diagnosis Body Site Miscellaneous operations1 1back surgery Social History Social History Type Response Smoking Status Never smoker; Exposure to T obacco Smoke None; Cigarette Smoking Last 365 Days No; Reg Smoking Cessation Counseli ng No Assessment and Plan No data available for this section
--- OUTSIDE RECORDS SUMMARY | 2019-11-25 10:48 | XMS REPORT | Clinical Summary ---
Author Author MARY [facility] Address Unknown Phone Unavailable Care Team Providers Care Spanner Operator Name Role Phone Sharpless PCP Allergies Comments Active Allergy Reactions Severity Noted Date Nifedipine Swelling 02/01/2017 Medications End Date Status Medication Sig Dispensed Refills Start Date Active dicyclomine (BENTYL) 10 Take 10 mg by 0 MG capsule mouth 3 (three) times daily before meals. Active tamsulosin (FLOMAX) 0.4 Take 0.4 mg 0 mg Cp24 24 hr capsule by mouth 2 (two) times daily. Active allopurinol (ZYLOPRIM) Take 300 mg 0 300 MG tablet by mouth daily. Active atenolol (TENORMIN) 50 MG Take 50 mg by 0 tablet mouth daily. Active sucralfate (CARAFATE) 1 Take 1 g by 0 gram tablet mouth 4 (four) times daily. Active doxazosin (CARDURA) 4 MG Take 4 mg by 0 tablet mouth daily. Active Problems Problem Noted Date Non-intractable vomiting with nausea 02/21/2017 Gout 02/03/2017 Aortic disease 02/02/2017 Overview: History of Aortic Surgery Ventral hernia 02/02/2017 Upper GI bleed 02/01/2017 Anemia 02/01/2017 Hypertension 02/01/2017 Melena 02/01/2017 Peripheral vascular disease, unspecified 02/01/2017 GERD (gastroesophageal reflux disease) 02/01/2017 Social History Date Tobacco Use Types Packs/Day Years Used Never Smoker Alcohol Use Drinks/Week oz/Week Comments No Sex Assigned at Date Recorded Not on file Industry Job Start Date Occupation Not on file Not on file Not on file Travel End Travel History Travel Start No recent travel history available. Last Filed Vital Signs Not on file Plan of Treatment Not on file Results Not on fileafter 11/24/2018 Insurance Payer Benefit Subscriber ID Type Phone Address Plan / Group [employer] MEDICARE MGD [employer] xxxxxxxx [employer] Advance Directives For more information, please contact: [address] [address] Date Inactivated Comments Code Status Date Activated 02/23/2017 3:59 PM Full Code 02/21/2017 5:39 AM This code status was determined by: Patient 02/05/2017 2:49 PM Full Code 02/01/2017 10:20 PM This code status was determined by: Patient
--- OUTSIDE RECORDS SUMMARY | 2019-11-25 10:48 | XMS REPORT | Continuity of Care Document ---
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 14.0 - 18.0 09/10/2017 [facility][note 3] RBC 3.28 4.70 - 6.10 09/10/2017 [facility][note 3] WBC 6.8 3.7 - 10.4 09/10/2017 [facility][note 3] MPV 6.5 7.4 - 10.4 09/10/2017 [facility][note 3] Platelet 184 133 - 450 09/10/2017 [facility][note 3] RDW 14.7 11.5 - 14.5 09/10/2017 [facility][note 3] MCHC 32.7 32.0 - 36.0 09/10/2017 [facility] URINE AND STOOL UA Bacteria Occasional /HPF None Seen /HPF 09/10/[address] [facility] URINE AND STOOL UA RBC >182 0 - 2 09/10/2017 [facility] URINE AND STOOL UA WBC 101 0 - 5 09/10/2017 [facility] URINE AND STOOL UA Urobilinogen <=1.0 mg/dL 0.1 - 1.0 09/10/[address] [facility] [address] URINE AND STOOL UA Hyal Cast 4 0 - 2 09/10/2017 [facility] URINE AND STOOL UA Mucus Few /LPF None Seen /LPF 09/10/2017 [facility] URINE AND STOOL UA Sq Epi Occasional /LPF Few /LPF 09/10/2017 [facility] URINE AND STOOL UA Leuk Est Trace *ABN* (09/10/17 4:47 PM) Negative 09/10/2017 [facility] URINE AND STOOL UA Nitrite Negative (09/10/17 4:47 PM) Negative 09/10/2017 [facility] URINE AND STOOL UA Turbidity Marked *ABN* (09/10/17 4:47 PM) Clear 09/10/2017 [facility] URINE AND STOOL UA Spec Grav 1.018 <=1.030 09/10/2017 [facility] URINE AND STOOL UA Color Yellow *NA* (09/10/17 4:47 PM) Yellow 09/10/2017 [facility] URINE AND STOOL UA pH 5.0 5.0 - 8.0 09/10/2017 [facility] URINE AND STOOL UA Ketones Negative mg/dL Negative mg/dL 09/10/2017 [facility] URINE AND STOOL UA Bili Negative *NA* (09/10/17 4:47 PM) Negative 09/10/2017 [facility] URINE AND STOOL UA Blood Large *ABN* (09/10/17 4:47 PM) Negative 09/10/2017 [facility] URINE AND STOOL UA Protein 30 mg/dL Negative mg/dL 09/10/2017 [facility] URINE AND STOOL UA Glucose Negative mg/dL Negative mg/dL 09/10/2017 [facility] RESULTS Antibody Scrn Positive 1 (09/02/17 6:43 AM) 09/02/2017 Result Comment: 09/02/2017 0 7:55 [id number]
"Significant Findings of Positive ABSC_ called to Yossi Reinoso_ at 09/02/2017 07:55_ by KLS_. Read Back OK" [facility] RESULTS ABO/Rh O POS 09/02/2017 [facility] ELECTROLYTES AGAP 11.8 10.0 - 20.0 09/02/2017 [facility] ELECTROLYTES eGFR 84 09/02/2017 Result Comment: The eGFR is calculated using the CKD-EPI formula. In most young, healthy individuals the eGFR will be >90 mL/min/1.73m2. The eGFR declines with age. An eGFR of 60-89 may be normal in some populations, particularly the elderly, for whom the CKD-EPI formula has not been extensively validated. Use of the eGFR is not recommended in the following populations:

Individuals with unstable creatinine concentrations, including patients and those with serious co-morbid conditions.

Patients with extremes in muscle mass or diet.

The data above are obtained from the National Kidney Disease Education Program (NKDEP) which additionally recommends that when the eGFR is used in patients with extremes of body mass index for purposes of drug dosing, the eGFR should be multiplied by the estimated BMI. [facility] ELECTROLYTES Calcium Lvl 8.4 8.5 - 10.5 09/02/2017 [facility] ELECTROLYTES Chloride Lvl 106 95 - 109 09/02/2017 [facility] ELECTROLYTES CO2 26 24 - 32 09/02/2017 [facility] ELECTROLYTES BUN 13 7 - 22 09/02/2017 [facility] ELECTROLYTES Creatinine Lvl 0.9 6 0.50 - 1.40 09/02/2017 [facility] ELECTROLYTES Glucose Lvl 87 70 - 99 09/02/2017 [facility] ELECTROLYTES Sodium Lvl 140 135 - 145 09/02/2017 [facility] ELECTROLYTES Potassium Lvl 3.8 3.5 - 5.1 09/02/2017 [facility] HEMATOLOGY Segs-Bands # 3.4 1.5 - 8.1 09/02/2017 [facility] HEMATOLOGY Lymphocytes # 1.4 1.0 - 5.5 09/02/2017 [facility] HEMATOLOGY Monocytes # 0.4 0.0 - 0.8 09/02/2017 [facility] HEMATOLOGY Basophils 0.9 0.0 - 1.0 09/02/2017 [facility] HEMATOLOGY Eosinophils 3.9 0.0 - 4.0 09/02/2017 [facility] HEMATOLOGY Eosinophils # 0.2 0.0 - 0.5 09/02/2017 [facility][note 3] Lymphocytes 25.0 20.0 - 40.0 09/02/2017 [facility] HEMATOLOGY Monocytes 7.5 2.0 - 12.0 09/02/2017 [facility] HEMATOLOGY Segs 62.7 45.0 - 75.0 09/02/2017 [facility][note 3] MCHC 32.9 32.0 - 36.0 09/02/2017 [facility][note 3] MCH 31.3 27.0 - 31.0 09/02/2017 [facility][note 3] MCV 94.9 80.0 - 94.0 09/02/2017 [facility][note 3] Hct 39.6 42.0 - 54.0 09/02/2017 [facility][note 3] RDW 14.7 11.5 - 14.5 09/02/2017 [facility] HEMATOLOGY MPV 7.1 7.4 - 10.4 09/02/2017 [facility] HEMATOLOGY Platelet 172 133 - 450 09/02/2017 [facility] HEMATOLOGY Hgb 13.0 14.0 - 18.0 09/02/2017 [facility] HEMATOLOGY RBC 4.17 4.70 - 6.10 09/02/2017 [facility] HEMATOLOGY WBC 5.4 3.7 - 10.4 09/02/2017 [facility] HEMATOLOGY INR 1.05 0.85 - 1.17 09/02/2017 [facility] HEMATOLOGY PT 13.7 12.0 - 14.7 09/02/2017 [facility] URINE AND STOOL UA Bacteria Occasional /HPF None Seen /HPF 09/02/[address] [facility] [address] URINE AND STOOL UA RBC >100 /HPF 0 - 2 09/02/2017 [facility] URINE AND STOOL UA WBC 3-5 /HPF 0 - 5 09/02/2017 [facility] URINE AND STOOL UA Sq Epi None Seen (09/02/17 6:06 AM) Few 09/02/2017 [facility] URINE AND STOOL Micro? Performed (09/02/17 6:06 AM) 09/02/2017 [facility] URINE AND STOOL UA Leuk Est Moderate *ABN* (09/02/17 6:06 AM) Negative 09/02/2017 [facility] URINE AND STOOL UA Ketones 15 09/02/2017 [facility] URINE AND STOOL UA pH 7.0 5.0 - 8.0 09/02/2017 [facility] URINE AND STOOL UA Bili Negative (09/02/17 6:06 AM) Negative 09/02/2017 [facility] URINE AND STOOL UA Blood Large *ABN* (09/02/17 6:06 AM) Negative 09/02/2017 [facility] URINE AND STOOL UA Turbidity Marked *ABN* (09/02/17 6:06 AM) Clear 09/02/2017 [facility] URINE AND STOOL UA Spec Grav 1.010 <=1.030 09/02/2017 [facility] URINE AND STOOL UA Glucose Negative (09/02/17 6:06 AM) Negative 09/02/2017 [facility] URINE AND STOOL UA Protein >=300 mg/dL Negative mg/dL 09/02/2017 [facility] URINE AND STOOL UA Urobilinogen 4.0 0.1 - 1.0 09/02/2017 [facility] URINE AND STOOL UA Nitrite Positive *ABN* (09/02/17 6:06 AM) Negative 09/02/2017 [facility] URINE AND STOOL UA Color Red *ABN* (09/02/17 6:06 AM) Yellow 09/02/2017 [facility] CARDIAC ENZYMES Troponin-I <0.02 0.00 - 0.40 08/15/2017 [facility] CARDIAC ENZYMES CK MB Index 1.5 0.0 - 2.5 08/15/2017 [facility] CARDIAC ENZYMES CK MB 1.9 0.5 - 3.6 08/15/2017 [facility] CARDIAC ENZYMES Total CK 129 12 - 191 08/15/2017 [facility] CHEM PANEL eGFR 77 08/15/2017 Result Comment: The eGFR is calculated using the CKD-EPI formula. In most young, healthy individuals the eGFR will be >90 mL/min/1.73m2. The eGFR declines with age. An eGFR of 60-89 may be normal in some populations, particularly the elderly, for whom the CKD-EPI formula has not been extensively validated. Use of the eGFR is not recommended in the following populations:

Individuals with unstable creatinine concentrations, including patients and those with serious co-morbid conditions.

Patients with extremes in muscle mass or diet.

The data above are obtained from the National Kidney Disease Education Program (NKDEP) which additionally recommends that when the eGFR is used in patients with extremes of body mass index for purposes of drug dosing, the eGFR should be multiplied by the estimated BMI. [facility] CHEM PANEL Calcium Lvl 7.9 8.5 - 10.5 08/15/2017 [facility] CHEM PANEL CO2 28 24 - 32 08/15/2017 [facility] CHEM PANEL Albumin Lvl 3.2 3.5 - 5.0 08/15/2017 [facility] CHEM PANEL Total Protein 8.0 6.4 - 8.4 08/15/2017 [facility] CHEM PANEL Chloride Lvl 106 95 - 109 08/15/2017 [facility] CHEM PANEL Alk Phos 103 39 - 136 08/15/2017 [facility] CHEM PANEL AST 25 0 - 37 08/15/2017 [facility] CHEM PANEL ALT 21 0 - 65 08/15/2017 [facility] CHEM PANEL B/C Ratio 13 6 - 25 08/15/2017 [facility] CHEM PANEL AGAP 12.0 10.0 - 20.0 08/15/2017 [facility] CHEM PANEL Bili Total 0.5 0.2 - 1.3 08/15/2017 [facility] CHEM PANEL A/G Ratio 0.7 0.7 - 1.6 08/15/2017 [facility] CHEM PANEL Globulin 4.8 2.7 - 4.2 08/15/2017 [facility] CHEM PANEL Creatinine Lvl 1.03 0.50 - 1.40 08/15/2017 [facility] CHEM PANEL BUN 13 7 - 22 08/15/2017 [facility] CHEM PANEL Potassium Lvl 4.0 3.5 - 5.1 08/15/2017 [facility] CHEM PANEL Sodium Lvl 142 135 - 145 08/15/2017 [facility] CHEM PANEL Glucose Lvl 78 70 - 99 08/15/2017 [facility] HEMATOLOGY Basophils 0.6 0.0 - 1.0 08/15/2017 [facility] HEMATOLOGY Eosinophils 1.7 0.0 - 4.0 08/15/2017 [facility] HEMATOLOGY Segs-Bands # 4.4 1.5 - 8.1 08/15/2017 [facility] HEMATOLOGY Monocytes 10.2 2.0 - 12.0 08/15/2017 [facility] HEMATOLOGY Lymphocytes # 1.6 1.0 - 5.5 08/15/2017 [facility] HEMATOLOGY Eosinophils # 0.1 0.0 - 0.5 08/15/2017 [facility] HEMATOLOGY Monocytes # 0.7 0.0 - 0.8 08/15/2017 [facility] HEMATOLOGY Lymphocytes 23.6 20.0 - 40.0 08/15/2017 [facility] HEMATOLOGY Segs 63.9 45.0 - 75.0 08/15/2017 [facility] HEMATOLOGY MCH 31.6 27.0 - 31.0 08/15/2017 [facility] HEMATOLOGY MCV 95.7 80.0 - 94.0 08/15/2017 [facility][note 3] MCHC 33.0 32.0 - 36.0 08/15/2017 [facility] HEMATOLOGY MPV 7.2 7.4 - 10.4 08/15/2017 [facility] HEMATOLOGY RDW 15.9 11.5 - 14.5 08/15/2017 [facility] HEMATOLOGY Platelet 138 133 - 450 08/15/2017 [facility] HEMATOLOGY Hgb 13.3 14.0 - 18.0 08/15/2017 [facility] HEMATOLOGY Hct 40.2 42.0 - 54.0 08/15/2017 [facility] HEMATOLOGY RBC 4.20 4.70 - 6.10 08/15/2017 [facility] HEMATOLOGY WBC 6.8 3.7 - 10.4 08/15/2017 [facility] URINE AND STOOL UA Urobilinogen <=1.0 mg/dL 0.1 - 1.0 08/15/2017 [facility] URINE AND STOOL UA Color Ltyellow 08/15/2017 [facility] URINE AND STOOL UA Sq Epi None Seen 08/15/2017 [facility] URINE AND STOOL UA RBC 3 0 - 2 08/15/2017 [facility] URINE AND STOOL UA Protein Negative mg/dL Negative mg/dL 08/15/2017 [facility] URINE AND STOOL UA Glucose Negative mg/dL Negative mg/dL 08/15/[address] [facility] [address] URINE AND STOOL UA WBC 1 0 - 5 08/15/2017 [facility] URINE AND STOOL UA Ketones Negative mg/dL Negative mg/dL 08/15/2017 [facility] URINE AND STOOL UA Bili Negative *NA* (08/15/17 4:59 PM) Negative 08/15/2017 [facility] URINE AND STOOL UA Leuk Est Negative (08/15/17 4:59 PM) Negative 08/15/2017 [facility] URINE AND STOOL UA Nitrite Negative (08/15/17 4:59 PM) Negative 08/15/2017 [facility] URINE AND STOOL UA Blood Small *ABN* (08/15/17 4:59 PM) Negative 08/15/2017 [facility] URINE AND STOOL UA pH 6.0 5.0 - 8.0 08/15/2017 [facility] URINE AND STOOL UA Spec Grav 1.009 <=1.030 08/15/2017 [facility] URINE AND STOOL UA Turbidity Clear (08/15/17 4:59 PM) Clear 08/15/2017 [facility] CHEM PANEL eGFR 91 06/12/2017 Result Comment: The eGFR is calculated using the CKD-EPI formula. In most young, healthy individuals the eGFR will be >90 mL/min/1.73m2. The eGFR declines with age. An eGFR of 60-89 may be normal in some populations, particularly the elderly, for whom the CKD-EPI formula has not been extensively validated. Use of the eGFR is not recommended in the following populations:

Individuals with unstable creatinine concentrations, including patients and those with serious co-morbid conditions.

Patients with extremes in muscle mass or diet.

The data above are obtained from the National Kidney Disease Education Program (NKDEP) which additionally recommends that when the eGFR is used in patients with extremes of body mass index for purposes of drug dosing, the eGFR should be multiplied by the estimated BMI. [facility] CHEM PANEL POC Creatinine 0.9 0.5 - 1.4 06/12/2017 [facility] ELECTROLYTES AGAP 10.9 10.0 - 20.0 04/30/2017 [facility] ELECTROLYTES eGFR 97 04/30/2017 Result Comment: The eGFR is calculated using the CKD-EPI formula. In most young, healthy individuals the eGFR will be >90 mL/min/1.73m2. The eGFR declines with age. An eGFR of 60-89 may be normal in some populations, particularly the elderly, for whom the CKD-EPI formula has not been extensively validated. Use of the eGFR is not recommended in the following populations:

Individuals with unstable creatinine concentrations, including patients and those with serious co-morbid conditions.

Patients with extremes in muscle mass or diet.

The data above are obtained from the National Kidney Disease Education Program (NKDEP) which additionally recommends that when the eGFR is used in patients with extremes of body mass index for purposes of drug dosing, the eGFR should be multiplied by the estimated BMI. [facility] ELECTROLYTES Calcium Lvl 8.1 8.5 - 10.5 04/30/2017 [facility] ELECTROLYTES CO2 27 24 - 32 04/30/2017 [facility] ELECTROLYTES Potassium Lvl 3.9 3.5 - 5.1 04/30/2017 [facility] ELECTROLYTES Sodium Lvl 141 135 - 145 04/30/2017 [facility] ELECTROLYTES Chloride Lvl 107 95 - 109 04/30/2017 [facility] ELECTROLYTES BUN 15 7 - 22 04/30/2017 [facility] ELECTROLYTES Creatinine Lvl 0.7 6 0.50 - 1.40 04/30/2017 [facility] ELECTROLYTES Glucose Lvl 84 70 - 99 04/30/2017 [facility] HEMATOLOGY MCHC 33.2 32.0 - 36.0 04/30/2017 [facility] HEMATOLOGY MCH 30.2 27.0 - 31.0 04/30/2017 [facility] HEMATOLOGY MCV 90.9 80.0 - 94.0 04/30/2017 [facility] HEMATOLOGY Hct 34.4 42.0 - 54.0 04/30/2017 [facility] HEMATOLOGY MPV 7.0 7.4 - 10.4 04/30/2017 [facility] HEMATOLOGY Platelet 164 133 - 450 04/30/2017 [facility] HEMATOLOGY RDW 15.7 11.5 - 14.5 04/30/2017 [facility] HEMATOLOGY Hgb 11.4 14.0 - 18.0 04/30/2017 [facility] HEMATOLOGY RBC 3.78 4.70 - 6.10 04/30/2017 [facility] HEMATOLOGY WBC 5.6 3.7 - 10.4 04/30/2017 [facility] HEMATOLOGY Monocytes # 0.5 0.0 - 0.8 04/30/2017 [facility] HEMATOLOGY Eosinophils # 0.2 0.0 - 0.5 04/30/2017 [facility] HEMATOLOGY Lymphocytes # 1.5 1.0 - 5.5 04/30/2017 [facility] HEMATOLOGY Monocytes 8.9 2.0 - 12.0 04/30/2017 [facility][note 3] Lymphocytes 26.3 20.0 - 40.0 04/30/2017 [facility] HEMATOLOGY Segs 59.6 45.0 - 75.0 04/30/2017 [facility] HEMATOLOGY Segs-Bands # 3.3 1.5 - 8.1 04/30/2017 [facility] HEMATOLOGY Basophils 0.8 0.0 - 1.0 04/30/2017 [facility] HEMATOLOGY Eosinophils 4.4 0.0 - 4.0 04/30/2017 [facility] CHEM PANEL Creatinine Lvl 0.95 0.50 - 1.40 04/29/2017 [facility] CHEM PANEL BUN 15 7 - 22 04/29/2017 [facility] CHEM PANEL Glucose Lvl 96 70 - 99 04/29/2017 [facility] CHEM PANEL Calcium Lvl 8.7 8.5 - 10.5 04/29/2017 [facility] CHEM PANEL CO2 30 24 - 32 04/29/2017 [facility] CHEM PANEL Chloride Lvl 101 95 - 109 04/29/2017 [facility] CHEM PANEL Potassium Lvl 3.7 3.5 - 5.1 04/29/2017 [facility] CHEM PANEL Sodium Lvl 138 135 - 145 04/29/2017 [facility] CHEM PANEL eGFR 85 04/29/2017 Result Comment: The eGFR is calculated using the CKD-EPI formula. In most young, healthy individuals the eGFR will be >90 mL/min/1.73m2. The eGFR declines with age. An eGFR of 60-89 may be normal in some populations, particularly the elderly, for whom the CKD-EPI formula has not been extensively validated. Use of the eGFR is not recommended in the following populations:

Individuals with unstable creatinine concentrations, including patients and those with serious co-morbid conditions.

Patients with extremes in muscle mass or diet.

The data above are obtained from the National Kidney Disease Education Program (NKDEP) which additionally recommends that when the eGFR is used in patients with extremes of body mass index for purposes of drug dosing, the eGFR should be multiplied by the estimated BMI. [facility] CHEM PANEL AGAP 10.7 10.0 - 20.0 04/29/2017 [facility] HEMATOLOGY Lymphocytes 25.1 20.0 - 40.0 04/29/2017 [facility] HEMATOLOGY Segs 64.2 45.0 - 75.0 04/29/2017 [facility] HEMATOLOGY Monocytes 7.0 2.0 - 12.0 04/29/2017 [facility] HEMATOLOGY Basophils 0.9 0.0 - 1.0 04/29/2017 [facility] HEMATOLOGY Segs-Bands # 3.9 1.5 - 8.1 04/29/2017 [facility] HEMATOLOGY Eosinophils 2.8 0.0 - 4.0 04/29/2017 [facility] HEMATOLOGY Lymphocytes # 1.5 1.0 - 5.5 04/29/2017 [facility] HEMATOLOGY Eosinophils # 0.2 0.0 - 0.5 04/29/2017 [facility] HEMATOLOGY Basophils # 0.1 0.0 - 0.2 04/29/2017 [facility] HEMATOLOGY Monocytes # 0.4 0.0 - 0.8 04/29/2017 [facility] HEMATOLOGY Platelet 190 133 - 450 04/29/2017 [facility] HEMATOLOGY RDW 15.7 11.5 - 14.5 04/29/2017 [facility] HEMATOLOGY MPV 6.9 7.4 - 10.4 04/29/2017 [facility][note 3] MCHC 32.7 32.0 - 36.0 04/29/2017 [facility] HEMATOLOGY RBC 4.34 4.70 - 6.10 04/29/2017 [facility] HEMATOLOGY WBC 6.0 3.7 - 10.4 04/29/2017 [facility] HEMATOLOGY Hct 39.6 42.0 - 54.0 04/29/2017 [facility] HEMATOLOGY MCV 91.3 80.0 - 94.0 04/29/2017 [facility] HEMATOLOGY MCH 29.8 27.0 - 31.0 04/29/2017 [facility] HEMATOLOGY Hgb 13.0 14.0 - 18.0 04/29/2017 [facility] LIPIDS VLDL 29 04/29/2017 [facility] LDL (Calculated) 96 <=99 mg/dL 04/29/2017 [facility] LIPIDS Trig 143 <=149 mg/dL 04/29/2017 [facility] Chol 184 <=199 mg/dL 04/29/2017 [facility] HDL 59 >=61 mg/dL 04/29/2017 [facility] CHD Risk 3.12 4.00 - 7.30 04/29/2017 [facility] Pathology Reports No Data Provided for This Section Diagnostic Reports Report Value Date Source Abdomen/Pelvis CTA Patient Bereket abdul: TERESA WARD : 1955; Age: 63 years y/o Male MR: [id number] * CT ANGIOGRAPHY OF THE ABDOMEN \\T\\ PELVIS, (CT aortography of the abdominal aorta and pelvic vessels), with noncontrast study. HISTORY: Comparison is made to 08/16/2017. A study of 06/12/2017 was also reviewed. Technique: Initially, noncontrast computed tomography scan of the abdomen and pelvis was performed. Helical CT images were obtained from the lower chest to the pubic symphysis without the use of intravenous contrast. Next, CT angiography was performed. High resolution (2.0 mm) helical CT images were obtained from the domes of the diaphragm through the pelvis to the pubic symphysis during the dynamic administration of nonionic iodinated contrast for maximal arterial opacification (CT angiography technique). 3-dimensional (obtained by postprocessing on an independent workstation) and sagittal and cor onal MIP reconstructions (obtained by postprocessing on an independent workstation) were also provided. CT imaging performed at this location utilizes radiation dose optimization techniques which include one or more of the following: -Automated exposure control. -Adjustment of the mA and/or kV accordin g to patient size. -Use of iterative reconstruction techniq ue. CT radiation dose DLP: 2461 mGy-cm FINDINGS: (Vascular) * Abdominal aorta and iliac arteries: 1. Extensive underlying atherosclerotic changes. 2. 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 The dissection flap with focal coarse calcification is noted in the mid abdominal aorta. This is best seen on images 15 through 19 of series 6. There does not appear to be flow restriction. 3. 4.5 x 4.2 cm in maximal cross-section suprarenal abdominal aortic aneurysm which is essentially unchanged. 4. There is progressive thrombus involvi ng the lower thoracic/upper abdominal aorta which appears to be hemodynamically significant and therefore flow restrictive to the abdominal aorta. This has progressed from 08/16/2017. There is extensive luminal thrombus near the thoracolumbar junction. There has been progressive narrowing of the opacified lumen. There appears to be a severe inflow limiting restriction of the lumen due to extensive luminal thrombus. There is a small V-shaped residual opacified lumen best seen on image 77. There is estimated to be an approximately 85% stenosis. 5. There appears to be a 2nd area of dis section of the upper abdominal aorta with differential contrast enhancement. There is a moderate sized semilunar area of decreased enhancement within the posterior aspect of the abdominal aorta on images 86 through 95, felt to represent the false lumen. 6. There is a large endoleak posterior t o the aortic portion of the stent graft and along the right and posterior aspect of the lower stent graft and proximal graft bifurcation. There also appears to be a wisp of contrast enhancement anteriorly in the lower aneurysm sac. The endoleak is quite large and appears to have progressed from the prior study. This endoleak appears to be in direct continuity with the false lumen of the upper abdominal aorta posteriorly. Therefore, this is probably a type I endoleak with flow around the upper -- posterior aspect of the stent graft. The anatomy is best demonstrated on the sagittal images. 7. Bifurcated aortic stent graft is stab le in appearance and patent. 8. The abdominal aortic aneurysm sac rebekah sures 6.0 x 4.9 cm in maximal cross- section. This appears to have increased in size from the prior study as on a similar area, this measured 5.5 x 4.8 cm. 9. There are single renal arteries bilat erally which are widely patent. 10. The superior mesenteric artery and c eliac axis are widely patent. 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 Reconstitution of its branches. 11. Below the stent graft, the common/ex ternal iliac arteries are patent without significant stenosis. There therefore appears to be good inflow into the lower extremities bilaterally. 12. Both hypogastric arteries are patent . 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 There is mild aneurysmal dilatation of the proximal left hypogastric artery which measures 1.2 cm in maximal diameter. FINDINGS: (Nonvascular) 1. The visualized lung bases are clear. There are no pleural effusions. 2. Mild to moderate cardiomegaly. There is no pericardial effusion. 3. Moderate coronary artery calcificatio ns. 4. Status post cholecystectomy. There is no significant biliary ductal dilatation. 5. The liver, spleen, pancreas, and adre nal glands are normal in appearance. 6. The kidneys are normal in size withou t hydronephrosis. There is a tiny left lower pole renal calculus. 7. The gastrointestinal structures are o therwise unremarkable. There is no evidence of obstruction or ileus. The appendix is not definitely visualized. Evaluation of the gastrointestinal structures is limited due to lack of oral contrast. 8. No mass, adenopathy, ascites, or flui d collection. 9. Small supraumbilical ventral hernia. There is no herniation of bowel. 10. Small to moderate right inguinal her gerald. There is no herniation of bowel. 11. Extensive degenerative changes throu ghout the lumbar spine from L2 through S1. SL: [id number] 10/02/2018 [facility] fibula series DX Exam: T ibia fibula series DX, right, 2 views Reason for Exam: - right leg pain, m79.661 Comparison Exam: None Discussion: No acute fracture lines identified. 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 No suspicious osteoblastic or osteolytic lesions seen to suggest pathologic involvement. Heavy vascular calcifications are seen within the deep arterial system. If there is suspicion for claudication, CT scan of the bilateral lower extremities should be considered. Impression: 1. No acute bony abnormalities identifi ed. 02/04/2018 [facility] Abdomen AP DX Examination: Abd omen, one view Indication: Renal stones. Comparison: Abdomen one view 09/02/2017 Findings: 8.7 mm calculus is present in the inferi or pole of the right kidney. Right ureteral stent. No calcifications project over the expected region of the left renal shadow, course of the ureters bilaterally, or urinary bladder. Phleboliths are present in the pelvis. Aortoiliac atherosclerotic calcifications. Aortic endograft is present in the lower abdominal aorta. Calcification in the aneurysmal sac is visualized. Surgical clips are present in the right upper quadrant. No air-fluid levels or pneumoperitoneum. Moderate amount of retained feces is present in the colon and rectum. Degenerative changes of the thoracic spine. Impression: Right nephrolithiasis. Right ureteral stent. 11/18/2017 [facility] Abdomen AP DX Clinical Indicat ion: - STENT LOCATION, HEMATURIA. Comparison: Intraoperative images from placement on 08/16/2017. FINDINGS: The AP supine view of the abdomen shows a nonspecific bowel gas pattern. There is no abnormal dilatation of bowel loops. There is no pneumatosis or mass effect. A right sided double-J ureteral stent is seen with the proximal tip projecting over the right renal pelvis and distal tip projecting over the urinary bladder. A 10 mm calcification is seen medial to the proximal portion of the right ureteral stent. An abdominal aortic stent graft is noted. Vascular calcifications are identified. There are surgical clips within the right upper quadrant abdomen. IMPRESSION: Again seen right-sided double-J ureteral stent. A 10 mm calcification adjacent to the proximal portion of the stent. SL: LAMONT 09/02/2017 [facility] Renal pyelogram retrograde DX Patient Name: TERESA WARD : 1955; Age: 61 years y/o Male MR: [id number] RETROGRADE PYELOGRAPHY, RIGHT HISTORY: Calculus at right ureterovesical junction. Right hydronephrosis. COMMENT: 5 digital C-arm intraprocedural radiographs of the abdomen were obtained during right retrograde pyelography. It is indicated the fluoroscopy time was 41 seconds. The computed tomography scan of the abdomen and pelvis performed earlier today was reviewed. FINDINGS: The images demonstrate cannulation of the right ureter and performance of right retrograde pyelography. The right ureter is not dilated. There is mild to moderate dilatation of the right pyelocalyceal system. A small filling defect felt to correspond to the calculus is noted at the right ureteropelvic junction. Subsequent images demonstrate placement of a guidewire into the right renal pelvis. A double-J ureteral stent has was then placed. The stent appears be in good position with the upper coil in the upper pole calyx and the lower coil in the region of the bladder. Please refer to urologist's notes. BONILLA: [id number] 08/16/2017 [facility] Scrotal/Testicle w Doppler US Testicular ultrasound with Doppler Clinical Indication: - bilateral testicular pain. Comparison: None. TECHNIQUE: Sonographic evaluation of the scrotum and testes was performed using high resolution B-mode imaging as well as pulse and color Doppler imaging. FINDINGS: TESTES: The right testicle measures 4.1 x 2.1 x 3.5 cm. The left testicle measures 3.2 x 2.9 x 2.5 cm. There is normal bilateral testicular contour and morphology. Small 5 mm right intratesticular cyst. The Doppler images of the testicles show normal blood flow. EPIDIDYMIS: There is a 1.4 cm right epididymal head cyst and a 3 mm left epididymal head cyst. SCROTUM: Trace bilateral hydroceles. Bilateral varicoceles. There is no scrotal edema. IMPRESSION: 1. Normal testicular Doppler blood flow . 2. Trace bilateral hydroceles. 3. Bilateral varicoceles. 4. A 1.4 cm right epididymal head cyst. SL: MORENO 08/16/2017 [facility] Abdomen/Pelvis CTA CTA ABDOMEN /PELVIS WITH CONTRAST INDICATION: Lower abdominal pain, prior aortic aneurysm repair, CT dose DLP 1367.87 COMPARISON: CTA chest/abdomen/pelvis 06/12/2017 TECHNIQUE: CTA of the abdomen and pelvis was performed after administration of intravenous contrast. Coronal, sagittal, and 3-D reformatted images were utilized. DISCUSSION: CTA: There is extensive plaque of the abdominal aorta. There is a stable suprarenal abdominal aortic aneurysm, measuring approximately 4.8 x 3.4 x 4.4 cm (sagittal x AP x transverse). By my measurement, the suprarenal aneurysm previously measured 4.7 x 3.7 x 4.5 cm. As previously noted, there is a focal dissection of the suprarenal abdominal aorta, just above the stent graft. There is no involvement of the celiac trunk, SMA, bilateral renal arteries. The celiac trunk, SMA, and bilateral renal arteries are grossly patent. Bones again, note there is an infrarenal abdominal aortic aneurysm, status post stent graft repair. The stent graft is patent. The excluded lobular aneurysm sac is grossly stable in size, measuring 6.6 x 5.3 x 7.0 cm (sagittal x AP x transverse). By my measurement, the excluded aneurysm sac measured 6.2 x 7.1 x 5.4 cm. As previously seen, mild wispy contrast is seen in the aneurysm sac, secondary to endoleak. The KAYLIN is approximately occluded. The stented bilateral common iliac arteries are patent and normal in caliber. The bilateral internal and external iliac arteries are patent. The bilateral common femoral arteries are patent. ABDOMEN/PELVIS: There is no consolidation at the visible lung bases. Cholecystectomy clips are in place. There is an 8 mm calculus at the right ureteropelvic junction, associated with moderate to marked right hydronephrosis, increased in comparison to the prior CT. The left kidney is unremarkable. The liver, spleen, pancreas, and adrenal glands appear normal. There is a small hiatal hernia. The stomach and bowel loops are unremarkable. No free fluid or abnormal fluid collections are seen. The bladder and prostate are unremarkable. BONES: No acute bony abnormalities are seen. IMPRESSION: 1. The suprarenal and infrarenal abdomin al aortic aneurysms are grossly unchanged. There is stable focal dissection of the suprarenal abdominal aorta, as described. The stent graft of the infrarenal abdominal aorta is patent. There is no significant interval change in the appearance of endoleak. 2. An 8 mm calculus at the right uretero pelvic junction, associated with moderate to marked right hydronephrosis. In retrospect, right nephrolithiasis was previously present. There is interval increase in hydronephrosis. SL:16 08/16/2017 [facility] Chest 2 views DX Clinical Latoya cation: - pain. Comparison: 2013. TECHNIQUE: PA and lateral chest radiographs were performed. (2 views) FINDINGS: LUNGS: Normal lung volumes. Left-sided pleural thickening and pleural parenchymal scarring. Lungs are otherwise clear. No pleural effusions or pneumothorax. HEART AND MEDIASTINUM: The heart size is normal. The pulmonary vasculature is normal. Atherosclerosis of the aorta. The trachea is midline. OSSEOUS STRUCTURES: No acute abnormality seen. IMPRESSION: 1. Left-sided pleural thickening and ple ural parenchymal scarring. No significant change from the previous study. 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 Coronal and sagittal reconstructions were obtained. [<100>] cc of [<omnipaque> contrast material was used for the exam. 3-D postprocessing reconstructions were obtained. CT Radiation Dose DLP 2909 mGy-cm FINDINGS: CTA CHEST: VASCULAR STRUCTURES: Ascending thoracic aorta is not remarkable. A bovine arch is noted. Again noted is fusiform aneurysmal dilatation of the right subclavian artery up to 2.6 cm. The bilateral common carotid arteries are not remarkable. Right vertebral artery and left vertebral artery origins and proximal segments are normal. Of note the proximal left subclavian artery is occluded at its origin with retrograde reconstitution from the left vertebral ostium (left subclavian steal). There is focal moderate narrowing of the proximal descending thoracic aorta 15 mm, with the distal transverse aortic arch 32 mm diameter. Nonobstructive mural thrombus is present within the proximal descending thoracic aorta luminal 2 nondisplaced intimal calcifications. Within the descending thoracic aorta however there is centrally displaced intimal calcification associated with the subintimal thickening compatible with intramural hematoma. As well, a dissection of the descending thoracic aorta is noted as a short segment of intimal flap present just below the giovani. Additional short segment nonocclusive dissection, intimal flap is noted within the descending thoracic aorta at T8-T10 level. There is no pulmonary embolus appreciated within the opacified visualized pulmonary arteries. The SVC is patent, normal. LUNG PARENCHYMA AND PLEURA: Atelectatic or fibrotic changes within the lingula are noted as before. No new infiltrate, suspicious nodule or mass. There is no significant pleural effusion or pneumothorax otherwise. AIRWAY: The central airway is normal. MEDIASTINUM: There is no mediastinal lymphadenopathy. HEART: The cardiac chambers appear unremarkable. There is no pericardial effusion. Coronary calcifications. OSSEOUS STRUCTURES: There are no definite significant osseous abnormalities seen. CTA ABDOMEN: ARTERIAL EVALUATION: Localized nonocclusive short segment dissection with intimal flap at the visceral segment of the abdominal aorta. Specifically this flap does not occlude or extend into renal or visceral arteries. There is a calcified eccentric plaque within the distal celiac trunk with approximately 40% luminal diameter stenosis. The SMA is proximally widely patent. There is mild eccentric plaque within the main trunk of the SMA approximately 3 cm from its origin. No SMA branch occlusions are aneurysm or dissection is otherwise appreciated. The inferior mesenteric artery is proximally occluded. Bilateral renal arteries are normal. Previous stent graft repair of infrarenal abdominal aortic aneurysm. The thrombosed aneurysm sac today measures 43 x 56 mm, previously 47 x 57 mm, essentially stable. There is patchy enhancement within the aneurysm sac, most clearly evident just posterior to the left iliac limb on arterial phase sequence, images 187 through 194 of series 7. As well, on the delayed series there is multifocal patchy contrast enhancement within the aneurysm sac, for example image 102 series 12, image 117 series 12. The stented bilateral iliac arteries are nonaneurysmal, and widely patent. ABDOMINAL SOLID ORGANS: The arterial phase contrast-enhanced images of the liver, spleen, pancreas, adrenals and kidneys are unremarkable. The extrahepatic bile duct appears unremarkable. Prior cholecystectomy. PERITONEUM AND RETROPERITONEUM: There is no retroperitoneal or abdominal lymphadenopathy. There is no abdominal ascites. STOMACH AND BOWEL: The noncontrast opacified stomach and loops of bowel in the abdomen are unremarkable. The lack of orally administered contrast material limits assessment. OSSEOUS STRUCTURES: There are no definite significant osseous abnormalities seen. CTA PELVIS: ARTERIAL EVALUATION: Bilateral common iliac, internal iliac, external iliac and common femoral arteries appear unremarkable. NONVASCULAR STRUCTURES: There is no pelvic lymphadenopathy. There is no pelvic ascites. The bladder is unremarkable. 5 cm and 2.5 cm separate supraumbilical ventral abdominal hernia, containing only fat. Tiny 1 x 2 cm umbilical hernia containing only fat. BOWEL: The noncontrast opacified loops of small bowel and colon in the pelvis are unremarkable. The lack of orally administered contrast material limits assessment. OSSEOUS STRUCTURES: Lumbar degenerative spondylosis. 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 Proximally occluded left subclavian artery with reconstitution via the left vertebral artery. 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 Focal dissection with intimal flap within the mid descending thoracic aorta. Additional and additional focal dissection is noted within the suprarenal abdominal aorta. Central displacement of the intimal calcifications with subintimal thickening at both sites suggesting sequela of intramural hematoma. Regardless, no aortic or visceral artery obstruction is associated with this process. Previous stent graft repair of infrarenal abdominal aortic aneurysm. Thrombosed abdominal aortic aneurysm sac is relatively stable in size since 04/11/2017. Multifocal enhancement on delayed images within the thrombosed sac compatible with continued endoleak. Its specific source is not readily apparent. Eccentric calcified atherosclerotic plaque within the celiac artery and SMA without high-grade stenosis or occlusion. KAYLIN is occluded by the thrombosed infrarenal abdominal aortic aneurysm sac. SL: [id number] 06/12/2017 [facility] Chest/Abdominal Aorta with Runoff CTA Patient Name: TERESA WARD : 1955; Age: 61 years y/o Male MR: [id number] Study: Chest/Abdominal Aorta with Runoff CTA 04/11/2017 9:18 AM CDT Ordering Physician: Ranjan Gil MD Clinical Indication: - aortic aneurysm; peripheral artery disease ; Comparison: 12/05/2007 TECHNIQUE: Sequential trans-axial images were obtained from the base of the neck to the feet with a multi-detector helical CT after administration of iodinated contrast for CT angiography of the abdomen pelvis and bilateral lower extremities. Coronal and sagittal reconstructions and 3D rendered images were obtained and viewed. 100 cc of Omnipaque 300 contrast material was used for the exam. No oral contrast used. 3D volume rendered and maximum intensity projected images reviewed. CT Radiation Dose DLP: 598 mGy-cm AEC, mA/kV adjustment by patient size, and/or iterative reconstruction technique were used, per departmental dose-optimization program. CT CHEST ANGIOGRAM FINDINGS: There is a bovine arch. After the origin of the right common carotid artery. There is approximately a 6 cm segment of aneurysmal dilatation involving the right subclavian artery measuring up to 2.6 cm diameter. The normal lumen measures approximately 8 mm. Mild atherosclerotic calcification is noted just proximal to the aneurysm without evidence of hemodynamically significant stenosis by NASCET criteria. Additional mild vascular calcifications of the origins are noted. There is a coarctation of the aortic arch measuring 1.6 cm diameter with concentric mild luminal narrowing beginning at this level and extending extending to the abdominal aorta. Prestenosis, at the level of the main pulmonary artery the ascending aorta measures 3.4 cm with the descending aorta measuring 2.2 cm. At the level of the coarctation diameter is approximately 1.6 cm. There is also mild stenosis measuring 1.9 x 1.5 cm due to the concentric soft plaque at the level of the diaphragmatic hiatus. Main pulmonary artery is mildly dilated measuring up to 3.2 cm suggesting possible pulmonary arterial hypertension versus pulmonic valve stenosis. There is mild cardiomegaly with slight enlargement of the left ventricle and left atrium. No evidence of axillary, mediastinal or hilar adenopathy. Lungs are too clear, except for lingular subsegmental atelectasis. No Evidence of consolidation, effusion, or mass. CT ABDOMEN ANGIOGRAM FINDINGS: Interval status post post cholecystectomy. Mild renal atrophy with perinephric stranding suggests medical renal disease. Nonobstructive right lower pole renal stone measures 8 mm. There is an additional punctate renal stone in each of bilateral kidneys. The arterial phase contrast-enhanced images of the liver, spleen, pancreas, adrenals, kidneys, bladder, GI tract are otherwise grossly unremarkable. Appendix is unremarkable. No adenopathy or free fluid. Osseous structures unremarkable. Soft tissue evaluation and osseous structures of bilateral lower extremities grossly unremarkable. Interval placement of aortoiliac stent graft. As best seen in series 6 image 119 there is slight density within the aortic lumen outside of the stent graft so that an endoleak cannot be excluded. Infrarenal abdominal aortic aneurysm is greater in size along the inferior left lateral border now measuring up to 6.4 cm, previously 4.4 cm. There is mild extension into the origin of the left common iliac artery measuring up to 2.6 cm. The endograft stent lumen is slightly narrowed as it enters the left common iliac artery measuring approximately 1.1 cm diameter compared to the normal 1.6 cm diameter. Celiac SMA and KYALIN origins are patent. The mid celiac axis demonstrates mild calcification with possible nonhemodynamically significant focal dissection of the right wall as best seen in series 6, image 86. KAYLIN branches appear to be filling through collaterals age and from SMA. Collaterals do demonstrate mild stenoses with calcification in multifocal areas as best seen in series 6, image 93 through 98 some areas of focal thrombus best seen in image 98. There are bilateral single patent renal arteries. CT PELVIS ANGIOGRAM FINDINGS: The bilateral common, internal and external iliac arteries are otherwise patent without flow limiting lesions aneurysm or dissection . CT BILATERAL LOWER EXTREMITY ANGIOGRAM FINDINGS: Right: The common femoral and profunda femoris arteries are patent without flow limiting lesions. The superficial femoral artery demonstrates focal thrombus with possible focal dissection causing a 50-60% stenosis as best seen in series 6, image 215. . The popliteal artery is patent without flow limiting lesions or aneurysm . There is a there is a moderate stenosis of proximal anterior tibial and peroneal branches with mild multifocal stenoses in these vessels into the distal calf. No contrast is seen in the peroneal after the mid calf. Contrast in the anterior tibial reaches the distal calf but not dorsalis pedis. At the foot there is patent PT vessels . Left: The common femoral and profunda femoris arteries are patent without flow limiting lesions. The superficial femoral artery is patent without flow limiting lesions . The popliteal artery is patent without flow limiting lesions or aneurysm . There is a multifocal stenoses of the proximal anterior tibial artery with occlusion by the mid calf. Peroneal artery is seen to the level of the ankle. Mild arteriosclerosis and stenoses are seen throughout the posterior tibial artery with occlusion by the level of the ankle. No contrast is seen within the left foot. IMPRESSION: 1. Interval aortoiliac stent of abdomina l aortic aneurysm. Possible endoleak is noted with interval enlargement of the inferior left portion of the abdominal aortic aneurysm now measuring 6.4 cm. Recommend vascular consultation. 2. Proximal right subclavian aneurysm. C oarctation of the aortic arch with circumferential soft, thrombus involving the descending aorta including mild stenosis at the diaphragmatic hiatus. 3. Dissection involving the Celiac axis and right superficial femoral artery with mild narrowing of the right superficial femoral artery. KAYLIN appears occluded with collateralization from SMA where there are are mild stenoses and thrombus in the collateral. 4. Numerous calf stenoses are noted with no definite contrast seen within the left foot and a single posterior tibial vessel runoff into the right foot. See additional details above including possible pulmonary arterial hypertension versus pulmonic valve dysfunction and nonobstructive renal stones. Critical findings discussed with Dr. Zachary MD at 04/11/2017 5:22 PM CDT 04/11/2017 [facility] [place] Chest 1view CHEST, AP INDICATION: Chest pain. COMPARISON: Chest 12/05/2007. The cardiac silhouette is top normal in size. Aortic atherosclerosis is noted. There is stable pleural and parenchymal scarring at the base of the left hemithorax. The lungs demonstrate mild interstitial scarring and there is a tiny right pleural effusion. Right hilar vascular structures remain prominent SL: 12 03/23/2014 [facility] cervical 2 or 3 view DX CERVICAL SPINE SERIES--3 VIEWS HX: Pain, Trauma FINDINGS: There is no evidence of compression deformity or subluxation. The vertebral body heights and disc space intervals are preserved. Some mild mid cervical spondylosis is present with narrowing of the disc interval at C6-C7 and some early marginal endplate spurring. Calcification is present in the carotid bifurcations bilaterally. The prevertebral soft tissues are within normal limits. IMPRESSION: Degenerative spondylosis in the mid cervical region and atherosclerosis. Otherwise negative cervical spine series.. SL: 12 03/23/2014 [facility] Consultation Notes No Data Provided for This Section Discharge Summaries No Data Provided for This Section History and Physicals No Data Provided for This Section Vital Signs Vital Sign Value Date Comments Source Systolic (mm Hg) 173 11/26/2017 [facility] Diastolic (mm Hg) 65 11/26/2017 [facility] Systolic (mm Hg) 170 11/26/2017 [facility] Diastolic (mm Hg) 57 11/26/2017 [facility] Systolic (mm Hg) 169 11/26/2017 [facility] Diastolic (mm Hg) 57 11/26/2017 [facility] Respitory Rate 20 11/26/2017 [facility] Respitory Rate 18 11/26/2017 [facility] Heart Rate 56 11/26/2017 [facility] Respitory Rate 17 11/26/2017 [facility] Temperature Oral (F) 98.3 F 11/19/2017 [facility] Heart Rate 60 11/19/2017 [facility] Weight 86.08 11/19/2017 [facility] BMI Calculated 32.57 11/19/2017 [facility] Height 162.56 cm 11/19/2017 [facility] Heart Rate 71 09/10/2017 [facility] Respitory Rate 18 09/10/2017 [facility] Temperature Oral (F) 99.0 F 09/10/2017 [facility] Systolic (mm Hg) 165 09/10/2017 [facility] Diastolic (mm Hg) 61 09/10/2017 [facility] Height 162.56 cm 09/10/2017 [facility] Weight 84.091 09/10/2017 [facility] BMI Calculated 31.82 09/10/2017 [facility] Systolic (mm Hg) 104 09/02/2017 [facility] Diastolic (mm Hg) 82 09/02/2017 [facility] Respitory Rate 16 09/02/2017 [facility] Temperature Oral (F) 98.7 F 09/02/2017 [facility] Respitory Rate 16 09/02/2017 [facility] Temperature Oral (F) 98.7 F 09/02/2017 [facility] Systolic (mm Hg) 134 09/02/2017 [facility] Diastolic (mm Hg) 66 09/02/2017 [facility] Weight 81.818 09/02/2017 [facility] BMI Calculated 34.08 09/02/2017 [facility] Systolic (mm Hg) 125 09/02/2017 [facility] Diastolic (mm Hg) 81 09/02/2017 [facility] Height 154.94 cm 09/02/2017 [facility] Respitory Rate 18 09/02/2017 [facility] Heart Rate 85 09/02/2017 [facility] Temperature Oral (F) 98.3 F 09/02/2017 [facility] Systolic (mm Hg) 127 08/16/2017 [facility] Diastolic (mm Hg) 69 08/16/2017 [facility] Respitory Rate 16 08/16/2017 [facility] Heart Rate 64 08/16/2017 [facility] Temperature Oral (F) 97.5 F 08/16/2017 [facility] Heart Rate 73 08/16/2017 [facility] Systolic (mm Hg) 146 08/16/2017 [facility] Diastolic (mm Hg) 74 08/16/2017 [facility] Respitory Rate 16 08/16/2017 [facility] Systolic (mm Hg) 146 08/16/2017 [facility] Diastolic (mm Hg) 74 08/16/2017 [facility] Respitory Rate 16 08/16/2017 [facility] Heart Rate 73 08/16/2017 [facility] Temperature Oral (F) 97.5 F 08/16/2017 [facility] Temperature Oral (F) 98.2 F 08/16/2017 [facility] Height 160.02 cm 08/15/2017 [facility] Weight 81.818 08/15/2017 [facility] BMI Calculated 31.95 08/15/2017 [facility] Systolic (mm Hg) 124 04/30/2017 [facility] Diastolic (mm Hg) 67 04/30/2017 [facility] Respitory Rate 16 04/30/2017 [facility] Heart Rate 60 04/30/2017 [facility] Temperature Oral (F) 98.1 F 04/30/2017 [facility] Heart Rate 61 04/30/2017 [facility] Temperature Oral (F) 98.2 F 04/30/2017 [facility] Respitory Rate 16 04/30/2017 [facility] Systolic (mm Hg) 93 04/30/2017 [facility] Diastolic (mm Hg) 51 04/30/2017 [facility] Systolic (mm Hg) 98 04/30/2017 [facility] Diastolic (mm Hg) 49 04/30/2017 [facility] Respitory Rate 16 04/30/2017 [facility] Heart Rate 56 04/30/2017 [facility] Temperature Oral (F) 98.1 F 04/30/2017 [facility] BMI Calculated 32.68 04/29/2017 [facility] Weight 86.364 04/29/2017 [facility] Height 162.56 cm 04/29/2017 [facility] Diastolic (mm Hg) 68 03/23/2014 [facility] Respitory Rate 16 03/23/2014 [facility] Systolic (mm Hg) 163 03/23/2014 [facility] Temperature Oral (F) 97.8 F 03/23/2014 [facility] Heart Rate 60 03/23/2014 [facility] Weight 90.909 03/23/2014 [facility] Respitory Rate 16 03/23/2014 [facility] Temperature Oral (F) 98.1 F 03/23/2014 [facility] Diastolic (mm Hg) 77 03/23/2014 [facility] Heart Rate 65 03/23/2014 [facility] Systolic (mm Hg) 145 03/23/2014 [facility] BMI Calculated 34.4 03/23/2014 [facility] Height 162.56 cm 03/23/2014 [facility] Encounters Location Location Details Encounter Type Encounter Number Reason For Visit Attending Provider ADM Date DC Date Status Source [facility] Emergency Center [id number] An Oliveros 03/23/2014 03/23/2014 [facility] [place] [facility] [id number] Ranjan Gil 04/11/2017 [facility] [id number] Ranjan Gil 04/29/2017 04/30/2017 [facility] Outpatient [id number] Rock Reese 06/12/2017 06/13/2017 [facility] Inpatient [id number] Ranjan Gil 08/15/2017 08/17/2017 [facility] Emergency [id number] Reece Puentes 09/02/2017 09/02/2017 [facility] Outpatient [id number] Jose Guadalupe Jenkins 09/10/2017 09/10/2017 [facility] Outpatient [id number] Jose Guadalupe Jenkins 11/18/2017 11/19/2017 [facility] [id number] [facility]26[facility]2017 11/26/2017 [facility] - [place] Outpt Diag Services [id number] Joslyn Mayers 02/04/2018 02/05/2018 [facility] Outpatient [id number] Ranjan Gil 10/02/2018 10/03/2018 [facility] Procedures Procedure Code Date Perfomer Comments Source AAA - Repair of abdominal aortic aneurys m using bifurcation graft [id number] [facility] [place] [id number] [facility] Miscellaneous operations<sup>1</sup> [id number] back surge ry [facility] [place],[facility] Cystoscopy [id number] [facility] [place],[facility] Procedure on back<sup>2</sup> [id number] Surgery [facility] Assessment and Plan Assessment and Plan Date Source Extracted from:Title: General Admission H&P * Author: Mindi Leigh MD Date: 08/16/17 Impression and Plan 1. Right flank pain with right ureterop elvic 8 mm calculus status post right ureteral stent placementurology consulted, pain control, stent placed in the right ureter, spoke with urology okay to discharge home and follow-up in 1-2 weeks for stent removal 2. History of AAA with graftCT imaging shows stable findings 3. Hypertensionstable, continue same h ome medications 3. ProphylaxisLovenox 4. Fluid electrolytes nutrientsIV flui ds 5. Dispositiondischarge home, urology consulted This will serve as a discharge summary and history and physical as patient was discharged on the same day. Patient is to follow-up with urology in his office 1-2 weeks for stent removal. Pain control medications have been written and placed in the chart. He also needs to follow-up with his PCP in 1 week. Prior to discharge his vital signs were stable and the patient was doing well with no other complaints. 08/17/2017 [facility] Extracted from:Title: Clinical Document Author: Taniya Sharma MD Date: 04/30/17 Discharge Summary Admission Diagnosis: 1. Abnormal nuclear stress test 2. AAA s/p repair now with endoleak Discharge Diagnosis: 1. Coronar artery disease 2. AAA s/p repair with endoleak Comorbid Conditions: 1. HTN 2. HLD Procedures: 1. Left heart catheterization, selectiv e coronary angiography, left ventriculography. 2. Percutaneous transluminal coronary a ngioplasty and drug-eluting stent placed in the mid right coronary artery. 3. Abdominal aortogram. Hospital Course: 61 year-old man with history as above pr esented for scheduled cardiac catheterization and abdominal aortogram. He underwent procedure as above with finding of 70% RCA stenosis status post PCI. He was observed in the hospital overnight and discharged home the following morning in stable condition. He will be referred to Vascular Surgery as an outpatient for further evaluation of the endoleak. Diet: Heart healthy, low sodium diet. Activity: As tolerated. No heavy lifting, no driving for one week. Do not soak procedure site in water. Follow-up: 1. Cardiology, Dr. Gil 2 weeks Medications: Please see medication reconciliation. Discharge Exam: Vitals reviewed. General: Awake and alert. No acute distress. Lungs: Clear to auscultation bilaterally. No wheezes/crackles. CV: Normal rate. Regular rhythm. Abd: Soft. Ext: No edema. Right groin soft without hematoma or bruit. Palpable FA. Telemetry: Normal sinus rhythm 04/30/2017 [facility] Plan of Care No Data Provided for This Section Social History Social History Date Source Social History TypeResponse Alcohol Past Smoking Status Never smoker; Type: Cigarettes; Exposure to Tobacco Smoke None; Cigarette Smoking Last 365 Days No; Reg Smoking Cessation Counseling No entered on: 11/19/17 11/19/2017 [facility] Social History TypeResponse Alcohol Past Smoking Status Never smoker; Type: Cigarettes; Exposure to Tobacco Smoke None; Cigarette Smoking Last 365 Days No; Reg Smoking Cessation Counseling No entered on: 11/19/17 11/19/2017 [facility] Social History TypeResponse Smoking Status Never smoker, Exposure to Tobacco Smoke None, Cigarette Smoking Last 365 Days No, Reg Smoking Cessation Counseling No 03/23/2014 [facility] Family History No Data Provided for This Section Advance Directives No Data Provided for This Section Functional Status No Data Provided for This Section
--- OUTSIDE RECORDS SUMMARY | 2019-11-25 10:48 | XMS REPORT | Summary of Care ---
Author Author [facility] Organization [facility] Address Unknown Phone Unavailable Encounter HQ Karl_evangelina(FIN) [id number] Date(s): 04/29/17 - 04/30/[address] [facility] [address] [place] [address]- Discharge Disposition: Home or Self Care Attending Physician: Ranjan Gil MD Referring Physician: Ranjan Gil MD Vital Signs 1 2 3 Most recent to oldest [Reference Range]: 162.56 cm (04/29/17 11:55 AM) Height 98.1 DegF (04/30/17 11:37 AM) 98.2 DegF (04/30/17 7:44 AM) 98.1 DegF (04/30/17 3:58 AM) Temperature Oral [96.4-99.1 DegF] 124/67 mmHg (04/30/17 11:37 AM) 93/51 mmHg (04/30/17 7:44 AM) 98/49 mmHg (04/30/17 3:58 AM) Blood Pressure [90-140/60-90 mmHg] 16 BRMIN (04/30/17 11:37 AM) 16 BRMIN (04/30/17 7:44 AM) 16 BRMIN (04/30/17 3:58 AM) Respiratory Rate [14-20 BRMIN] 60 bpm (04/30/17 11:37 AM) 61 bpm (04/30/17 7:44 AM) 56 bpm *LOW* (04/30/17 3:58 AM) Peripheral Pulse Rate [60-100 bpm] 86.364 kg (04/29/17 11:55 AM) Weight 32.68 m2 (04/29/17 11:55 AM) Body Mass Index Problem List Condition Effective Dates Status Health Status Informan t Aortic Resolved aneurysm(Confirmed) BPH(Confirmed) Active Gout(Confirmed) Active Hypertension(Confirm Active ed) Allergies, Adverse Reactions, Alerts Substance Reaction Severity Status Procardia Active Medications acetaminophen-codeine #3 1 tab, PO, Q6H, PRN pain, # 30 tab, 0 Refill(s) Start Date: 04/29/17 Stop Date: 05/06/17 Status: Ordered acetaminophen-codeine #3 1 tab, Route: PO, Drug Form: TAB, Dosing Weight 86.364, kg, Q6H, PRN Pain Score 1-3, Start date: 04/29/17 15:36:00 CDT, Duration: 30 day, Stop date: 05/29/17 15 :35:00 SERVER SUPPORT TECHNICIAN Notes: Do not exceed 4gm/day of acetaminophen. (Same as: Tylenol with Codeine # 3) Start Date: 04/29/17 Stop Date: 04/30/17 Status: Discontinued acetaminophen-hydrocodone 325 mg-5 mg oral tablet 1 tab, Route: PO, Drug Form: TAB, Dosing Weight 86.364, kg, Q4H, PRN Pain Score 4-6, Start date: 04/29/17 15:38:00 CDT, Duration: 30 day, Stop date: 05/29/17 15 :37:00 SERVER SUPPORT TECHNICIAN Notes: (Same as: [place] 325/5) Do not exceed 4gm/day of acetaminophen. Start Date: 04/29/17 Stop Date: 04/30/17 Status: Discontinued allopurinol 300 mg, 1 tab, Route: PO, Drug form: TAB, Daily, Dosing Weight 86.364, kg, Start date: 04/30/17 9:00:00 CDT, Duration: 30 day, Stop date: 05/29/17 9:00:00 SERVER SUPPORT TECHNICIAN Notes: (Same as: Zyloprim) Start Date: 04/30/17 Stop Date: 04/30/17 Status: Discontinued allopurinol 300 mg oral tablet 300 mg = 1 tab, PO, Daily, # 30 tab, 0 Refill(s) Start Date: 04/29/17 Status: Ordered aspirin 81 mg tablet, enteric coated 81 mg, 1 tab, Route: PO, Drug form: ECTAB, Daily, Dosing Weight 86.364, kg, Star t date: 04/29/17 17:00:00 CDT, Duration: 30 day, Stop date: 05/29/17 9:00:00 SERVER SUPPORT TECHNICIAN Notes: Do not crush or chew.(Same As: Ecotrin) Start Date: 04/29/17 Stop Date: 04/30/17 Status: Discontinued aspirin 81 mg tablet, enteric coated 81 mg = 1 tab, PO, Daily, 0 Refill(s) Start Date: 04/30/17 Status: Ordered atenolol 50 mg oral tablet 50 mg, 1 tab, Route: PO, Drug form: TAB, Daily, Dosing Weight 86.364, kg, Start date: 04/30/17 9:00:00 CDT, Duration: 30 day, Stop date: 05/29/17 9:00:00 SERVER SUPPORT TECHNICIAN Notes: (Same As:Tenormin) Start Date: 04/30/17 Stop Date: 04/30/17 Status: Discontinued atenolol 50 mg oral tablet 50 mg = 1 tab, PO, Daily, # 30 tab, 0 Refill(s) Start Date: 04/29/17 Status: Ordered atorvastatin 40 mg, 1 tab, Route: PO, Drug form: TAB, Bedtime, Dosing Weight 86.364, kg, Star t date: 04/29/17 21:00:00 CDT, Duration: 30 day, Stop date: 05/28/17 21:00:00 CS T Notes: (Same as: Lipitor) Start Date: 04/29/17 Stop Date: 04/30/17 Status: Discontinued atorvastatin 40 mg oral tablet 40 mg = 1 tab, PO, Bedtime, # 30 tab, 0 Refill(s) Start Date: 04/30/17 Status: Ordered clopidogrel 75 mg, 1 tab, Route: PO, Drug form: TAB, Daily, Dosing Weight 86.364, kg, Start date: 04/30/17 9:00:00 CDT, Duration: 30 day, Stop date: 05/29/17 9:00:00 SERVER SUPPORT TECHNICIAN Notes: (Same As: Plavix) Start Date: 04/30/17 Stop Date: 04/30/17 Status: Discontinued clopidogrel 75 mg oral tablet 75 mg = 1 tab, PO, Daily, # 90 tab, 3 Refill(s) Start Date: 04/30/17 Status: Ordered diphenhydrAMINE 25 mg, 1 tab, Route: PO, Drug form: TAB, Bedtime, Dosing Weight 86.364, kg, PRN Insomnia, Start date: 04/29/17 15:38:00 CDT, Duration: 30 day, Stop date: 15:37:00 SERVER SUPPORT TECHNICIAN Start Date: 04/29/17 Stop Date: 04/30/17 Status: Discontinued ferrous sulfate 325 mg, 1 tab, Route: PO, Drug form: ECTAB, Daily, Start date: 04/30/17 9:00:00 CDT, Duration: 30 day, Stop date: 05/29/17 9:00:00 SERVER SUPPORT TECHNICIAN Notes: Give with food. "Do Not Crush" Start Date: 04/30/17 Stop Date: 04/30/17 Status: Discontinued ferrous sulfate 160 mg, Route: PO, Drug form: ERTAB, Daily, Dosing Weight 86.364, kg, Start date : 04/30/17 9:00:00 CDT, Duration: 30 day, Stop date: 05/29/17 9:00:00 SERVER SUPPORT TECHNICIAN Start Date: 04/30/17 Stop Date: 04/29/17 Status: Deleted ferrous sulfate 160 mg oral tablet, extended release 160 mg = 1 tab, PO, Daily, # 30 tab, 0 Refill(s) Start Date: 04/29/17 Status: Ordered Flax Oil oral capsule 1,000 mg =, PO, Daily, 0 Refill(s) Start Date: 04/29/17 Status: Ordered furosemide 40 mg oral tablet 40 mg, 1 tab, Route: PO, Drug form: TAB, Daily, Dosing Weight 86.364, kg, Start date: 04/30/17 9:00:00 CDT, Duration: 30 day, Stop date: 05/29/17 9:00:00 SERVER SUPPORT TECHNICIAN Notes: (Same as: Lasix) May cause GI upset. Give with food or milk. Start Date: 04/30/17 Stop Date: 04/30/17 Status: Discontinued furosemide 40 mg oral tablet 40 mg = 1 tab, PO, Daily, # 30 tab, 0 Refill(s) Start Date: 04/29/17 Status: Ordered hydrALAZINE 20 mg, 1 mL, Route: IVP, Drug form: INJ, Q4H, Dosing Weight 86.364, kg, PRN Hype rtension, Start date: 04/29/17 15:40:00 CDT, Duration: 30 day, Stop date: 15:39:00 SERVER SUPPORT TECHNICIAN Notes: (Same as: Apresoline)Push over 5 minutes Start Date: 04/29/17 Stop Date: 04/30/17 Status: Discontinued morphine Sulfate 4 mg, 1 mL, Route: IVP, Drug form: SOLN, Q2H, Dosing Weight 86.364, kg, PRN Pain Score 7-10, Start date: 04/29/17 15:38:00 CDT, Duration: 30 day, Stop date: 15:37:00 SERVER SUPPORT TECHNICIAN Notes: (Same as:MORPhine Sulfate) Start Date: 04/29/17 Stop Date: 04/30/17 Status: Discontinued multivitamin 1 tab, PO, Daily, 0 Refill(s) Start Date: 04/29/17 Status: Ordered multivitamin 1 tab, Route: PO, Drug Form: TAB, Dosing Weight 86.364, kg, Daily, Start date: 1 9:00:00 CDT, Duration: 30 day, Stop date: 05/29/17 9:00:00 SERVER SUPPORT TECHNICIAN Notes: (Same as:One Tab Daily, Tab-A-Bhargav + Beta Carotene) Give with food. Start Date: 04/30/17 Stop Date: 04/30/17 Status: Discontinued nitroglycerin SL Tab 0.4 mg, 1 tab, Route: SL, Drug form: TAB, Q5Min, Dosing Weight 86.364, kg, PRN C hest Pain, Start date: 04/29/17 15:38:00 CDT, Duration: 3 doses or times, Stop d ate: Limited # of times Notes: (Same as:Nitroquick, Nitrostat)"Do Not Crush" Sublingual tablet Start Date: 04/29/17 Stop Date: 04/30/17 Status: Discontinued Talihina-3 1000 mg oral capsule 1,000 mg = 1 cap, PO, TID, 0 Refill(s) Start Date: 04/29/17 Status: Ordered omega-3 polyunsaturated fatty acids 1,000 mg, 1 cap, Route: PO, Drug form: CAP, TID, Dosing Weight 86.364, kg, Start date: 04/29/17 17:00:00 CDT, Duration: 30 day, Stop date: 05/29/17 13:00:00 SERVER SUPPORT TECHNICIAN Notes: (Same as: MaxEPA, Talihina 3 fish oil )Non-Formulary Drug Start Date: 04/29/17 Stop Date: 04/30/17 Status: Discontinued ondansetron 4 mg, 1 tab, Route: PO, Drug form: TAB, Q8H, Dosing Weight 86.364, kg, PRN Nause a & Vomiting, Start date: 04/29/17 15:38:00 CDT, Duration: 30 day, Stop date: 05/29/17 15:37:00 SERVER SUPPORT TECHNICIAN Notes: (Same as: Zofran) Start Date: 04/29/17 Stop Date: 04/30/17 Status: Discontinued pantoprazole 40 mg, 1 tab, Route: PO, Drug form: ECTAB, Daily, Dosing Weight 86.364, kg, Star t date: 04/30/17 9:00:00 CDT, Duration: 30 day, Stop date: 05/29/17 9:00:00 SERVER SUPPORT TECHNICIAN Notes: Tablet should not be chewed or crushed.(Same as: Protonix) Start Date: 04/30/17 Stop Date: 04/30/17 Status: Discontinued pantoprazole 40 mg oral enteric coated tablet 40 mg = 1 tab, PO, Daily, # 30 tab, 0 Refill(s) Start Date: 04/29/17 Status: Ordered pneumococcal 23-valent vaccine 0.5 mL, Route: IM, Drug Form: INJ, ONCE, Start date: 05/01/17 12:00:00 CDT, Stop date: 05/01/17 12:00:00 CDT Notes: (Same as: Pneumovax 23) Refrigerate Start Date: 05/01/17 Stop Date: 04/30/17 Status: Canceled saw palmetto 450 mg oral capsule 450 mg, PO, Daily, 0 Refill(s) Start Date: 04/29/17 Status: Ordered sodium chloride 0.9% 1000 ml INJ 1,000 mL 1,000 mL, Rate: 100 ml/hr, Infuse over: 10 hr, Route: IV, Dosing Weight 86.364 k g, Total Volume: 1,000, Start date: 04/29/17 12:27:00 CDT, Duration: 30 day, Sto p date: 05/29/17 12:26:00 SERVER SUPPORT TECHNICIAN Start Date: 04/29/17 Stop Date: 04/30/17 Status: Discontinued sodium chloride 0.9% 1000 ml INJ 1,000 mL 1,000 mL, Rate: 75 ml/hr, Infuse over: 13.3 hr, Route: IV, Dosing Weight 86.364 kg, Total Volume: 1,000, Start date: 04/29/17 15:38:00 CDT, Duration: 10 hr, Sto p date: 04/30/17 1:37:00 CDT Start Date: 04/29/17 Stop Date: 04/30/17 Status: Completed sucralfate 1 gm, 1 tab, Route: PO, Drug form: TAB, BID, Dosing Weight 86.364, kg, Start marcie e: 04/29/17 17:00:00 CDT, Duration: 30 day, Stop date: 05/29/17 9:00:00 SERVER SUPPORT TECHNICIAN Notes: May interfere w/enteral feeds - Take 1 hr before or 2 hr after antacids, dairy pdt, meals & minerals - On empty stomach.For patients unable to swallow tablet, dissolve in 10mL - 30mL of water or juice and stir before giving. (Same As: Carafate) Start Date: 04/29/17 Stop Date: 04/30/17 Status: Discontinued sucralfate 1 g oral tablet 1 gm = 1 tab, PO, BID, 0 Refill(s) Start Date: 04/29/17 Status: Ordered Results ELECTROLYTES Most recent to 1 2 oldest [Reference Range]: Sodium Lvl [135-145 141 mEq/L 138 mEq/L mEq/L] (04/30/17 4:38 AM) (04/29/17 11:58 AM) Potassium Lvl 3.9 mEq/L 3.7 mEq/L [3.5-5.1 mEq/L] (04/30/17 4:38 AM) (04/29/17 11:58 AM) Chloride Lvl [95-109 107 mEq/L 101 mEq/L mEq/L] (04/30/17 4:38 AM) (04/29/17 11:58 AM) CO2 [24-32 mEq/L] 27 mEq/L 30 mEq/L (04/30/17 4:38 AM) (04/29/17 11:58 AM) AGAP [10.0-20.0 10.9 mEq/L 10.7 mEq/L mEq/L] (04/30/17 4:38 AM) (04/29/17 11:58 AM) CHEM PANEL Most recent to 1 2 oldest [Reference Range]: Creatinine Lvl 0.76 mg/dL 0.95 mg/dL [0.50-1.40 mg/dL] (04/30/17 4:38 AM) (04/29/17 11:58 AM) eGFR 97 mL/min/1.73m2 1 85 mL/min/1.73m2 2 *NA* *NA* (04/30/17 4:38 AM) (04/29/17 11:58 AM) BUN [7-22 mg/dL] 15 mg/dL 15 mg/dL (04/30/17 4:38 AM) (04/29/17 11:58 AM) Glucose Lvl [70-99 84 mg/dL 96 mg/dL mg/dL] (04/30/17 4:38 AM) (04/29/17 11:58 AM) Calcium Lvl 8.1 mg/dL 8.7 mg/dL [8.5-10.5 mg/dL] *LOW* (04/29/17 11:58 AM) (04/30/17 4:38 AM) 1Result Comment: The eGFR is calculated using the [...] from the National Kidney Disease Education Program ( NKDEP) which additionally recommends that when the eGFR is used in patients with extremes of body mass index for purposes of drug dosing, the eGFR should be mul tiplied by the estimated BMI. 2Result Comment: The eGFR is calculated using the [...] from the National Kidney Disease Education Program ( NKDEP) which additionally recommends that when the eGFR is used in patients with extremes of body mass index for purposes of drug dosing, the eGFR should be mul tiplied by the estimated BMI. LIPIDS Most recent to 1 2 oldest [Reference Range]: CHD Risk [4.00-7.30] 3.12 *LOW* (04/29/17 11:58 AM) Chol [<=199 mg/dL] 184 mg/dL (04/29/17 11:58 AM) Trig [<=149 mg/dL] 143 mg/dL (04/29/17 11:58 AM) HDL [>=61 mg/dL] 59 mg/dL *LOW* (04/29/17 11:58 AM) LDL (Calculated) 96 mg/dL [<=99 mg/dL] (04/29/17 11:58 AM) VLDL 29 *NA* (04/29/17 11:58 AM) HEMATOLOGY Most recent to 1 2 oldest [Reference Range]: WBC [3.7-10.4 K/CMM] 5.6 K/CMM 6.0 K/CMM (04/30/17 4:38 AM) (04/29/17 11:58 AM) RBC [4.70-6.10 3.78 M/CMM 4.34 M/CMM M/CMM] *LOW* *LOW* (04/30/17 4:38 AM) (04/29/17 11:58 AM) Hgb [14.0-18.0 g/dL] 11.4 g/dL 13.0 g/dL *LOW* *LOW* (04/30/17 4:38 AM) (04/29/17 11:58 AM) Hct [42.0-54.0 %] 34.4 % 39.6 % *LOW* *LOW* (04/30/17 4:38 AM) (04/29/17 11:58 AM) MCV [80.0-94.0 fL] 90.9 fL 91.3 fL (04/30/17 4:38 AM) (04/29/17 11:58 AM) MCH [27.0-31.0 pg] 30.2 pg 29.8 pg (04/30/17 4:38 AM) (04/29/17 11:58 AM) MCHC [32.0-36.0 33.2 g/dL 32.7 g/dL g/dL] (04/30/17 4:38 AM) (04/29/17 11:58 AM) RDW [11.5-14.5 %] 15.7 % 15.7 % *HI* *HI* (04/30/17 4:38 AM) (04/29/17 11:58 AM) Platelet [133-450 164 K/CMM 190 K/CMM K/CMM] (04/30/17 4:38 AM) (04/29/17 11:58 AM) MPV [7.4-10.4 fL] 7.0 fL 6.9 fL *LOW* *LOW* (04/30/17 4:38 AM) (04/29/17 11:58 AM) Segs [45.0-75.0 %] 59.6 % 64.2 % (04/30/17 4:38 AM) (04/29/17 11:58 AM) Lymphocytes 26.3 % 25.1 % [20.0-40.0 %] (04/30/17 4:38 AM) (04/29/17 11:58 AM) Monocytes [2.0-12.0 8.9 % 7.0 % %] (04/30/17 4:38 AM) (04/29/17 11:58 AM) Eosinophils [0.0-4.0 4.4 % 2.8 % %] *HI* (04/29/17 11:58 AM) (04/30/17 4:38 AM) Basophils [0.0-1.0 0.8 % 0.9 % %] (04/30/17 4:38 AM) (04/29/17 11:58 AM) Segs-Bands # 3.3 K/CMM 3.9 K/CMM [1.5-8.1 K/CMM] (04/30/17 4:38 AM) (04/29/17 11:58 AM) Lymphocytes # 1.5 K/CMM 1.5 K/CMM [1.0-5.5 K/CMM] (04/30/17 4:38 AM) (04/29/17 11:58 AM) Monocytes # [0.0-0.8 0.5 K/CMM 0.4 K/CMM K/CMM] (04/30/17 4:38 AM) (04/29/17 11:58 AM) Eosinophils # 0.2 K/CMM 0.2 K/CMM [0.0-0.5 K/CMM] (04/30/17 4:38 AM) (04/29/17 11:58 AM) Basophils # [0.0-0.2 0.1 K/CMM K/CMM] (04/29/17 11:58 AM) Immunizations Given and Recorded Vaccine Date Status Refusal Reason diphtheria/pertussis, acel/tetanus adult 03/23/14 Given Procedures Procedure Date Related Diagnosis Body Site AAA - Repair of abdominal aortic aneury sm using bifurcation graft Cholecystectomy Miscellaneous operations1 1back surgery Social History Social History Type Response Smoking Status Never smoker; Exposure to T obacco Smoke None; Cigarette Smoking Last 365 Days No; Reg Smoking Cessation Counseli ng No Assessment and Plan Extracted from: Title: Clinical Document Author: Taniya Sharma MD Date: [...]
--- OUTSIDE RECORDS SUMMARY | 2019-11-25 10:48 | XMS REPORT | Summary of Care ---
Author Author [facility] Organization [facility] Address Unknown Phone Unavailable Encounter NEELAM Garcia(MARISOL) [id number] Date(s): 10/02/18 - 10/02/[address] [facility] [address] [place] [address]- Discharge Disposition: Home or Self Care Attending Physician: Ranjan Gil MD Referring Physician: Ranjan Gli MD Vital Signs No data available for this section Problem List Condition Effective Dates Status Health Status Informan t Aortic Resolved aneurysm(Confirmed) BPH(Confirmed) Active CAD (coronary artery Active disease)(Confirmed) Gout(Confirmed) Active Hypertension(Confirm Active ed) Kidney Active stone(Confirmed) Allergies, Adverse Reactions, Alerts Substance Reaction Severity Status Procardia Active Medications Omnipaque 350 injectable solution 100 mL, Route: IV, Drug Form: SOLN, Dosing Weight 86.08, kg, ONCALL, For CTA exa m with GFR > 45 mL/min, Start date: 10/02/18 11:00:00 CDT, Duration: 1 doses or times Notes: (same as:Omnipaque 350).WASTE: F/P - Black; E - Municipal Trash Bin Start Date: 10/02/18 Status: Ordered Results CHEM PANEL Most recent to 1 oldest [Reference Range]: eGFR 63 mL/min/1.73m2 1 *NA* (10/02/18 7:57 AM) POC Creatinine 1.2 mg/dL [0.5-1.4 mg/dL] (10/02/18 7:57 AM) 1Result Comment: The eGFR is calculated [...] be mul tiplied by the estimated BMI. Immunizations Given and Recorded Vaccine Date Status Refusal Reason pneumococcal 13-valent vaccine 08/16/17 Given diphtheria/pertussis, acel/tetanus adult 03/23/14 Given Procedures Procedure Date Related Diagnosis Body Site Status AAA - Repair of abdominal aortic aneurysm Complet ed using bifurcation graft Cholecystectomy Completed Cystoscopy Completed Miscellaneous operations1 Completed Procedure on back2 Completed 1back surgery 2Surgery Social History Social History Type Response Alcohol Past Smoking Status Never smoker; Type: Cigaret virgen; Exposure to Tobacco Smoke None; Cigarette Smoking Last 365 Days No; Reg Smoking C essation Counseling No entered on: 11/19/17 Assessment and Plan No data available for this section
--- OUTSIDE RECORDS SUMMARY | 2019-11-25 10:48 | XMS REPORT | Summary of Care ---
Author Author [facility] Organization [facility] Address Unknown Phone Unavailable Encounter NEELAM Garcia(MARISOL) [id number] Date(s): 06/12/17 - 06/12/17 [facility] [address] [place] [address]- Discharge Disposition: Home or Self Care Attending Physician: Rock Reese MD Referring Physician: Rock Reese MD Vital Signs No data available for this section Problem List Condition Effective Dates Status Health Status Informan t Aortic Resolved aneurysm(Confirmed) BPH(Confirmed) Active Gout(Confirmed) Active Hypertension(Confirm Active ed) Allergies, Adverse Reactions, Alerts Substance Reaction Severity Status Procardia Active Medications Omnipaque 300 100 mL, Route: IV, Drug Form: SOLN, ONCE, Start date: 06/12/17 9:43:00 SALES ADVISOR, Stop date: 06/12/17 9:43:00 SALES ADVISOR Notes: (Same as:Omnipaque 300).WASTE: F/P - Black; E - Municipal Trash Bin Start Date: 06/12/17 Stop Date: 06/12/17 Status: Completed Results CHEM PANEL Most recent to 1 oldest [Reference Range]: eGFR 91 mL/min/1.73m2 1 *NA* (06/12/17 9:15 AM) POC Creatinine 0.9 mg/dL [0.5-1.4 mg/dL] (06/12/17 9:15 AM) 1Result Comment: The eGFR is calculated [...]
--- OUTSIDE RECORDS SUMMARY | 2019-11-25 10:48 | XMS REPORT | Clinical Summary ---
Author Author [facility] Organization [facility] ict Address Unknown Phone Unavailable Care Team Providers Care Reprint Sorter Name Role Phone Sri Patton RN 2 Unavailabl e Allergies Comments Active Allergy Reactions Severity Noted Date Nifedipine 12/12/2018 Medications End Date Status Medication Sig Dispensed Refills Start Date Active atropine (ISOPTO Instill 1 15 mL 1 ATROPINE) 1 % ophthalmic Drop in left 9 solutionIndications: eye 3 times Hyphema after procedure daily. Active prednisoLONE acetate Instill 1 5 mL 1 01/06 (PRED FORTE) 1 % Drop in left 9 ophthalmic eye 4 times suspensionIndications: daily. Hyphema after procedure, Hyphema, left 12/25/2018 Discontinued (Formulary keith ge) atropine 1 % ophthalmic Instill in 3.5 g 1 ointmentIndications: left eye 9 Hyphema after procedure daily. 01/06/2019 Discontinued (Reorder) prednisoLONE acetate Instill 1 0 (PRED FORTE) 1 % Drop in left ophthalmic suspension eye 4 times daily. Active Problems Problem Noted Date Hyphema after procedure 12/12/2018 Overview: Added automatically from request for antonieta stinson [id number] Left eye pain Encounters Care Team Description Date Type Specialty Ham Tijerina MD Hyphema, left (Primary Dx); Hyphema after procedure 01/06/2019 Office Visit Ophthalmology Ham Tijerina MD Hyphema after procedure 12/25/2018 Orders Only Ophthalmology Ham Tijerina MD Primary open angle glaucoma (POAG) of barbara th eyes, indeterminate stage (Primary Dx); History of trabeculectomy; Hyphema after procedure; Pseudophakia of left eye 12/23/2018 Office Visit Ophthalmology Conrado Avalos MD Primary open angle glaucoma (POAG) of barbara th eyes, indeterminate stage (Primary Dx); History of trabeculectomy 12/17/2018 Office Visit Ophthalmology Jose Luis Sepulveda, [place] Ham Tijerina MD Hyphema after procedure (Primary Dx); History of trabeculectomy; Pseudophakia of left eye 12/13/2018 Office Visit Ophthalmology Siddhartha Hernandez MD Pruit, John, ResidentMD 12/12/2018 Anesthesia Event Ham Tijerina MD OPHTH - TRABECULECTOMY WITH ANTERIOR [place] MBER WASHOUT LEFT EYE 12/12/2018 Surgery Sadi Jean MD 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 Last Filed Vital Signs Reading Time Taken Comments Vital Sign 112/47 12/12/2018 7:30 PM CDT Blood Pressure 50 12/12/2018 7:30 PM CDT Pulse 36.9 C (98.4 F) 12/12/2018 7:30 PM CDT Temperature 13 12/12/2018 7:30 PM CDT Respiratory Rate 96% 12/12/2018 7:30 PM CDT Oxygen Saturation - - Inhaled Oxygen Concentration - - Weight - - Height - - Body Mass Index Plan of Treatment Health Maintenance Due Date Last Done Comments Colorectal Cancer Scrn 09/16/2003 Annual (FIT/FOBT) Age 50 to 75 IMM Pneumococcal Age 65 2018 and Up IMM Influenza Seasonal 04/06/2020 Oct to September (>/= 19 yrs) Procedures Comments Procedure Name Priority Date/Time Associated Diag nosis GLUCOSE POC Routine 12/12/2018 6:07 PM CDT OPHTH - TRABECULECTOMY Emergent - 12/12/2018 Hyphema after procedure within 3 3:31 PM CDT hours ABO/RH CONFIRMATION STAT 12/12/2018 12:33 PM CDT T&S - COLLECTION STAT 12/12/2018 12:08 PM CDT TYPE AND SCREEN STAT 12/12/2018 12:08 PM CDT BMP POC Routine 12/12/2018 12:03 PM CDT 12 LEAD EKG Routine 12/12/2018 12:02 PM CDT XRAY CHEST 2 VIEWS STAT 12/12/2018 Left eye pa in 11:58 AM CDT CBC STAT 12/12/2018 11:58 AM CDT PT/INR STAT 12/12/2018 11:58 AM CDT CBC/DIFF STAT 12/12/2018 11:58 AM CDT after 11/24/2018 Results * POCT GLUCOSE POC docked device (12/12/2018 6:07 PM CDT) Glucose POC 97 74 - 106 mg/dL [facility] Specimen Blood Performing Organization Address [facility]/Formerly [facility] one Number [facility] [address] [place] [address] * ABO/RH CONFIRMATION (12/12/2018 12:33 PM CDT) ABO/RH O POS [facility] Specimen Blood Performing Organization Address [facility] one Number [facility] [address] [place] [address] * Type and Screen (12/12/2018 12:08 PM CDT) Specimen 12/15/2018 23:59 [facility] Expiration ABO/RH O POS [facility] Antibody Screen NEG [facility] B[facility] Specimen Blood Performing Organization Address [facility] one Number [facility] [address] [place] [address] * POCT BMP POC docked device (12/12/2018 12:03 PM CDT) Sodium POC 141 136 - 145 mmol/L [facility] Potassium POC 4.1 3.5 - 5.1 mmol/L [facility] Chloride POC 105 98 - 107 mmol/L [facility] TCO2 POC 24 21 - 32 mmol/L [facility] Urea Nitrogen 26 (H) 7 - 18 mg/dL [facility] Creatinine POC 1.2 0.6 - 1.3 mg/dL [facility] Glucose POC 101 74 - 106 mg/dL [facility] Ionized Calcium 1.19 1.15 - 1.29 mmol/L [facility] eGFR If Africn >60 mL/min/1.73 m2 [facility] GFR, Estimated >60 mL/min/1.73 m2 [facility] Hemoglobin POC 15.0Comment: 15 12 - 16 g/dL [facility] Hematocrit POC 44.0 37.0 - 47.0 % [facility] Specimen Blood, venous Performing Organization Address [facility] one Number [facility] [address] [place] [address] * 12 LEAD EKG (12/12/2018 12:02 PM CDT) 12 LEAD EKG FOR [facility] Test Date: 2018-12-12 Pat Name: PASCUAL ALBERT Department: Room: 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 Measurements Intervals Mooers Rate: 60 P: 55 DE: 150 QRS: -26 QRSD: 119 T: 76 QT: 469 QTc: 469 Interpretive Statements SINUS RHYTHM POSSIBLE LEFT ATRIAL ENLARGEMENT BORDERLINE LEFT AXIS DEVIATION LEFT VENTRICULAR HYPERTROPHY AND ST-T CHANGE Electronically Signed On 12-12-2018 13:00:27 CDT by Debi Kelley M.D. Specimen Performing Organization Address [facility] one Number [facility] * XRAY CHEST 2 VIEWS (12/12/2018 11:58 AM CDT) Specimen Impressions Performed At IMPRESSION: [facility] Central pulmonary vascular congestion a nd bibasilar atelectasis. Dictated By: Matthew Ryan MD, 12/12/2018 12 :19 PM I have reviewed the study and agree wit h the findings in this report. Signed By: Florida Lopez MD, 12/12/2018 1:40 PM Narrative Performed At EXAMINATION: XRAY CHEST 2 VIEWS, Frontal and latera l SMS INDICATION: Pre-op COMPARISON: Chest x-ray 08/22/2009 FINDINGS: TUBES/LINES: None LUNGS: Persistent left basilar and ri ght medial basilar patchy opacities, likely subsegmental atelecta sis. PLEURA: No effusions or pneumothorax. Blunting of the bilateral lateral costophrenic angles, possibly scarring. HEART/MEDIASTINUM: Stable cardiac bravo houette. Aortic vascular calcifications. Prominent central perih ilar vasculature. MUSCULOSKELETAL: No acute findings. UPPER ABDOMEN: Partially visualized britany nt overlying the thoracic lumbar spine. Cholecystectomy clips. Procedure Note Interface, Rad/Mammog In - 12/12/2018 1:45 PM CDT EXAMINATION: XRAY CHEST 2 VIEWS, Frontal and lateral INDICATION: Pre-op COMPARISON: Chest x-ray 08/22/2009 FINDINGS: TUBES/LINES: None LUNGS: Persistent left basilar and right medial basilar patchy opacities, likely subsegmental atelectasis. PLEURA: No effusions or pneumothorax. Blunting of the bilateral lateral costophrenic angles, possibly scarring. HEART/MEDIASTINUM: Stable cardiac silhouette. Aortic vascular calcifications. Prominent central perihilar vasculature. MUSCULOSKELETAL: No acute findings. UPPER ABDOMEN: Partially visualized stent overlying the thoracic lumbar spine. Cholecystectomy clips. IMPRESSION IMPRESSION: Central pulmonary vascular congestion and bibasilar atelectasis. Dictated By: Matthew Ryan MD, 12/12/2018 12:19 PM I have reviewed the study and agree with the findings in this report. Signed By: Florida Lopez MD, 12/12/2018 1:40 PM Performing Organization Address City/State/Zipcode Ph one Number SMS * CBC/Diff (12/12/2018 11:58 AM CDT) WBC 6.5 4.5 - 12.0 K/uL [facility] RBC 4.24 (L) 4.60 - 6.20 M/uL [facility] Hemoglobin 13.0 (L) 14.0 - 18.0 g/dL [facility] Hematocrit 42.1 40.0 - 54.0 % [facility] MCV 99.3 (H) 82.0 - 92.0 fL [facility] MCH 30.7 27.0 - 31.0 pg [facility] MCHC 30.9 (L) 32.0 - 36.0 g/dL [facility] RDW 52.2 (H) 35.1 - 43.9 fL [facility] Platelet 101 (L) 150 - 400 K/uL [facility] Mean Platelet 10.2 9.4 - 12.4 fL [facility] Percent NRBC 0.0 % [facility] Neutrophil 72.7 (H) 34.0 - 67.9 % [facility] Lymphs 19.8 (L) 21.8 - 50.0 % [facility] Monocytes 5.4 5.3 - 12.0 % [facility] Eos 1.1 0.8 - 5.0 % [facility] Basos 0.5 0.2 - 1.2 % [facility] Immature 0.5 0.0 - 0.5 % [facility] Granul[facility] Neutrophils 4.69 1.78 - 5.36 K/uL [facility]Absolute[facility] Lymphs 1.28 (L) 1.32 - 3.57 K/uL [facility] Monocytes(Absol 0.35 0.30 - 0.82 K/uL [facility] Eos (Absolute) 0.07 0.04 - 0.54 K/uL [facility] Baso (Absolute) 0.03 0.01 - 0.08 K/uL [facility] Immature Grans 0.03 0.00 - 0.03 K/uL [facility]Abs[facility] Absolute NRBC 0.00 K/uL [facility] Specimen Blood Performing Organization Address City/[facility] Ph one Number [facility] [address] [place] [address] [phone] * PT/INR (12/12/2018 11:58 AM CDT) PT 13.8 11.8 - 15.0 Seconds [facility] INR 1.1 Refer to INR ranges [facility] Comment: LABORATORY 2.0 - 3.0 for moderate intensity anticoagulation 2.5 - 3.5 for high intensity anticoagulation Specimen Blood Performing Organization Address City/[facility] one Number [facility] [address] [place] [address] [phone] after 11/24/2018 Insurance Type Payer Benefit Subscriber ID Effective Phone Address Plan / Dates Group [id number] xxxxxxxx 2018-P [facility] [address] [place] [address] LIENS PENDING xxxxxxxxx 2009- [phone] [place] [address] Liability
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
--- OUTSIDE RECORDS SUMMARY | 2019-11-25 10:49 | XMS REPORT | Summary of Care ---
Author Author [facility] Organization [facility] Address Unknown Phone Unavailable Encounter HQ Radha(FIN) [id number] Date(s): 11/18/17 - 11/18/17 [facility] [address] [place] [address]- [phone] Discharge Disposition: Home or Self Care Attending Physician: Jose Guadalupe Jenkins MD Vital Signs No data available for [...]
--- OUTSIDE RECORDS SUMMARY | 2019-11-25 10:49 | XMS REPORT | Summary of Care ---
Author Author [facility] Organization [facility] Address Unknown Phone Unavailable Encounter NEELAM Garcia(MARISOL) [id number] Date(s): 11/26/17 - 11/26/17 [facility] [address] [place] [address]- Discharge Disposition: Home or Self Care Attending Physician: Jose Guadalupe Jenkins MD Referring Physician: oJse Guadalupe Jenkins MD Vital Signs 1 2 3 Most recent to oldest [Reference Range]: 162.56 cm (11/19/17 9:01 AM) Height 98.3 DegF (11/19/17 9:05 AM) Temperature Oral [96.4-99.1 DegF] 173/65 mmHg *HI* (11/26/17 10:30 AM) 170/57 mmHg *HI* (11/26/17 9:45 AM) 169/57 mmHg *HI* (11/26/17 9:30 AM) Blood Pressure [90-140/60-90 mmHg] 20 BRMIN (11/26/17 9:15 AM) 18 BRMIN (11/26/17 9:00 AM) 17 BRMIN (11/26/17 6:48 AM) Respiratory Rate [14-20 BRMIN] 56 bpm *LOW* (11/26/17 6:48 AM) 60 bpm (11/19/17 9:05 AM) Peripheral Pulse Rate [60-100 bpm] 86.08 kg (11/19/17 9:01 AM) Weight 32.57 m2 (11/19/17 9:01 AM) Body Mass Index Problem List Condition Effective Dates Status Health Status Informan t Aortic Resolved aneurysm(Confirmed) BPH(Confirmed) Active CAD (coronary artery Active disease)(Confirmed) Gout(Confirmed) Active Hypertension(Confirm Active ed) Kidney Active stone(Confirmed) Allergies, Adverse Reactions, Alerts Substance Reaction Severity Status Procardia Active Medications acetaminophen 650 mg, Route: PO, Drug form: TAB, Q4H, Dosing Weight 86.08, kg, PRN Pain 1-3/Te mp > 100.4 F, Start date: 11/26/17 7:56:00 CDT, Duration: 30 day, Stop date: 12/26/17 7:55:00 CDT Start Date: 11/26/17 Stop Date: 11/26/17 Status: Discontinued acetaminophen (ANES) Route: IV, Drug form: INJ, ONCE, Stop date: 11/26/17 8:57:00 CDT Start Date: 11/26/17 Stop Date: 11/26/17 Status: Completed acetaminophen-codeine #3 2 tab, Route: PO, Drug Form: TAB, Dosing Weight 86.08, kg, Q4H, PRN Pain Score 4 -6, Start date: 11/26/17 7:56:00 CDT, Duration: 30 day, Stop date: 12/26/17 7:55 :00 CDT Start Date: 11/26/17 Stop Date: 11/26/17 Status: Discontinued Amidate (ANES) Route: IV, Drug form: INJ, ONCE, Stop date: 11/26/17 8:57:00 CDT Start Date: 11/26/17 Stop Date: 11/26/17 Status: Completed ANES acetaminophen 1,000 mg, Route: PO, Drug form: TAB, ONCE, Dosing Weight 86.08, kg, PRN Pain Sco re 1-3, Start date: 11/26/17 9:05:00 CDT Start Date: 11/26/17 Stop Date: 11/26/17 Status: Discontinued ANES albuterol 0.083% inhalation solution 2.49 mg, Route: NEB, Q20Min, Dosing Weight 86.08, kg, PRN Wheezing, Priority: ST AT, Start date: 11/26/17 9:05:00 CDT, Duration: 30 day, Stop date: 12/26/17 9:04 :00 CDT Start Date: 11/26/17 Stop Date: 11/26/17 Status: Discontinued ANES dexamethasone 4 mg, Route: IVP, ONCE, Dosing Weight 86.08, kg, PRN Nausea & Vomiting, Start date: 11/26/17 9:05:00 CDT Start Date: 11/26/17 Stop Date: 11/26/17 Status: Discontinued ANES diphenhydrAMINE 12.5 mg, Route: IVP, Drug form: INJ, Q6H, Dosing Weight 86.08, kg, PRN Itching, Start date: 11/26/17 9:05:00 CDT, Duration: 30 day, Stop date: 12/26/17 9:04:00 CDT Start Date: 11/26/17 Stop Date: 11/26/17 Status: Discontinued ANES fentaNYL 25 microgram, Route: IVP, Q5Min, Dosing Weight 86.08, kg, PRN, Priority: Routine , Start date: 11/26/17 9:05:00 CDT, Duration: 4 doses or times, Stop date: Limit ed # of times, Pain Score 4-10 Start Date: 11/26/17 Stop Date: 11/26/17 Status: Discontinued ANES flumazenil 0.2 mg, Route: IVP, PRN, Dosing Weight 86.08, kg, PRN Benzodiazepine Reversal, I nitial dose, Start date: 11/26/17 9:05:00 CDT, Duration: 30 day, Stop date: 12/06 08/24 9:04:00 CDT Start Date: 11/26/17 Stop Date: 11/26/17 Status: Discontinued ANES hydrALAZINE 5 mg, Route: IVP, Q20Min, Dosing Weight 86.08, kg, PRN Elevated BP, Start date: 11/26/17 9:05:00 CDT, Duration: 2 doses or times, Stop date: Limited # of times Start Date: 11/26/17 Stop Date: 11/26/17 Status: Discontinued ANES HYDROmorphone 0.5 mg, Route: IVP, Q5Min, Dosing Weight 86.08, kg, PRN Pain Score 7-10, Start d ate: 11/26/17 9:05:00 CDT, Duration: 4 doses or times, Stop date: Limited # of t imes Start Date: 11/26/17 Stop Date: 11/26/17 Status: Discontinued ANES labetalol 5 mg, Route: IVP, Q5Min, Dosing Weight 86.08, kg, PRN Elevated BP, Start date: 0 11/26/17 9:05:00 CDT, Duration: 5 doses or times, Stop date: Limited # of times Start Date: 11/26/17 Stop Date: 11/26/17 Status: Discontinued ANES naloxone 0.4 mg, Route: IVP, Q2MIN, Dosing Weight 86.08, kg, PRN Narcotic Reversal, Start date: 11/26/17 9:05:00 CDT, Duration: 8 doses or times, Stop date: Limited # of times Start Date: 11/26/17 Stop Date: 11/26/17 Status: Discontinued ANES ondansetron 4 mg, Route: IVP, ONCE, Dosing Weight 86.08, kg, PRN Nausea & Vomiting, Start date: 11/26/17 9:05:00 CDT Start Date: 11/26/17 Stop Date: 11/26/17 Status: Discontinued ANES promethazine 6.25 mg, Route: IVPB, ONCE, Dosing Weight 86.08, kg, PRN Nausea & Vomiting, Start date: 11/26/17 9:05:00 CDT Start Date: 11/26/17 Stop Date: 11/26/17 Status: Discontinued ciprofloxacin (ANES) Route: IV, Drug form: INJ, ONCE, Stop date: 11/26/17 8:57:00 CDT Start Date: 11/26/17 Stop Date: 11/26/17 Status: Completed ePHEDrine (ANES) Route: IV, Drug form: INJ, ONCE, Stop date: 11/26/17 8:58:00 CDT Start Date: 11/26/17 Stop Date: 11/26/17 Status: Completed fentaNYL (ANES) Route: IV, Drug form: INJ, ONCE, Stop date: 11/26/17 8:47:00 CDT Start Date: 11/26/17 Stop Date: 11/26/17 Status: Completed glycopyrrolate (ANES) Route: IV, Drug form: INJ, ONCE, Stop date: 11/26/17 8:58:00 CDT Start Date: 11/26/17 Stop Date: 11/26/17 Status: Completed hydromorphone 0.3 mg, Route: IVP, Q3H, Dosing Weight 86.08, kg, PRN Pain Score 4-6, Start date : 11/26/17 7:56:00 CDT, Duration: 30 day, Stop date: 12/26/17 7:55:00 CDT Start Date: 11/26/17 Stop Date: 11/26/17 Status: Discontinued Lactated Ringers Injection IV (ANES) 1000 mL Route: IV, Total Volume: 1,000, Start date: 11/26/17 7:49:00 CDT, Stop date: 8:49:00 CDT Start Date: 11/26/17 Stop Date: 11/26/17 Status: Completed Lactated Ringers Injection IV 1000 mL 1,000 mL, Rate: 25 ml/hr, Infuse over: 40 hr, Route: IV, Dosing Weight 86.08 kg, Total Volume: 1,000, Start date: 11/26/17 7:37:00 CDT, Duration: 30 day, Stop d ate: 12/26/17 7:36:00 CDT, 2, m2 Start Date: 11/26/17 Stop Date: 11/26/17 Status: Discontinued Lactated Ringers Injection IV 1000 mL 1,000 mL, Rate: 125 ml/hr, Infuse over: 8 hr, Route: IV, Dosing Weight 86.08 kg, Total Volume: 1,000, Start date: 11/26/17 9:05:00 CDT, Duration: 30 day, Stop d ate: 12/26/17 9:04:00 CDT, 2, m2 Start Date: 11/26/17 Stop Date: 11/26/17 Status: Discontinued lidocaine (ANES) Route: IV, Drug form: INJ, ONCE, Stop date: 11/26/17 8:47:00 CDT Start Date: 11/26/17 Stop Date: 11/26/17 Status: Completed midazolam (ANES) Route: IV, Drug form: SOLN, ONCE, Stop date: 11/26/17 8:47:00 CDT Start Date: 11/26/17 Stop Date: 11/26/17 Status: Completed neostigmine (ANES) Route: IV, Drug form: INJ, ONCE, Stop date: 11/26/17 8:58:00 CDT Start Date: 11/26/17 Stop Date: 11/26/17 Status: Completed propofol (ANES) Route: IV, Drug form: INJ, ONCE, Stop date: 11/26/17 8:47:00 CDT Start Date: 11/26/17 Stop Date: 11/26/17 Status: Completed rocuronium (ANES) Route: IV, Drug form: INJ, ONCE, Stop date: 11/26/17 8:57:00 CDT Start Date: 11/26/17 Stop Date: 11/26/17 Status: Completed Results ELECTROLYTES Most recent to 1 oldest [Reference Range]: Sodium Lvl [135-145 142 mEq/L mEq/L] (11/19/17 9:17 AM) Potassium Lvl 4.3 mEq/L [3.5-5.1 mEq/L] (11/19/17 9:17 AM) Chloride Lvl [95-109 106 mEq/L mEq/L] (11/19/17 9:17 AM) CO2 [24-32 mEq/L] 28 mEq/L (11/19/17 9:17 AM) AGAP [10.0-20.0 12.3 mEq/L mEq/L] (11/19/17 9:17 AM) CHEM PANEL Most recent to 1 oldest [Reference Range]: Creatinine Lvl 0.98 mg/dL [0.50-1.40 mg/dL] (11/19/17 9:17 AM) eGFR 81 mL/min/1.73m2 1 *NA* (11/19/17 9:17 AM) BUN [7-22 mg/dL] 21 mg/dL (11/19/17 9:17 AM) Glucose Lvl [70-99 87 mg/dL mg/dL] (11/19/17 9:17 AM) Calcium Lvl 8.6 mg/dL [8.5-10.5 mg/dL] (11/19/17 9:17 AM) 1Result Comment: The eGFR is calculated [...] be mul tiplied by the estimated BMI. URINE AND STOOL Most recent to 1 oldest [Reference Range]: UA Turbidity [Clear] Clear (11/19/17 9:17 AM) UA Color Ltyellow *NA* (11/19/17 9:17 AM) UA pH [5.0-8.0] 5.0 (11/19/17 9:17 AM) UA Spec Grav 1.017 [<=1.030] (11/19/17 9:17 AM) UA Glucose [Negative Negative mg/dL mg/dL] *NA* (11/19/17 9:17 AM) UA Blood [Negative] Large *ABN* (11/19/17 9:17 AM) UA Ketones [Negative Negative mg/dL mg/dL] *NA* (11/19/17 9:17 AM) UA Protein [Negative Negative mg/dL mg/dL] (11/19/17 9:17 AM) UA Urobilinogen <=1.0 mg/dL [0.1-1.0 mg/dL] *NA* (11/19/17 9:17 AM) UA Bili [Negative] Negative *NA* (11/19/17 9:17 AM) UA Leuk Est Negative [Negative] (11/19/17 9:17 AM) UA Nitrite Negative [Negative] (11/19/17 9:17 AM) UA WBC [0-5 /HPF] 5 /HPF (11/19/17 9:17 AM) UA RBC [0-2 /HPF] >182 /HPF *HI* (11/19/17 9:17 AM) UA Sq Epi [Few /LPF] Occasional /LPF *NA* (11/19/17 9:17 AM) UA Mucus [None Seen Few /LPF /LPF] *NA* (11/19/17 9:17 AM) HEMATOLOGY Most recent to 1 oldest [Reference Range]: WBC [3.7-10.4 K/CMM] 5.6 K/CMM (11/19/17 9:17 AM) RBC [4.70-6.10 4.33 M/CMM M/CMM] *LOW* (11/19/17 AM) Hgb [14.0-18.0 g/dL] 12.6 g/dL *LOW* (11/19/17 AM) Hct [42.0-54.0 %] 39.5 % *LOW* (11/19/17 AM) MCV [80.0-94.0 fL] 91.1 fL (11/19/17 AM) MCH [27.0-31.0 pg] 29.1 pg (11/19/17 AM) MCHC [32.0-36.0 31.9 g/dL g/dL] *LOW* (11/19/17 AM) RDW [11.5-14.5 %] 14.5 % (11/19/17 AM) MPV [7.4-10.4 fL] 7.6 fL (11/19/17 AM) Platelet [133-450 152 K/CMM K/CMM] (11/19/17 AM) Segs [45.0-75.0 %] 56.6 % (11/19/17 AM) Lymphocytes 30.6 % [20.0-40.0 %] (11/19/17 AM) Monocytes [2.0-12.0 8.0 % %] (11/19/17 AM) Eosinophils [0.0-4.0 4.0 % %] (11/19/17: AM) Basophils [0.0-1.0 0.8 % %] (11/19/17: AM) Segs-Bands # 3.1 K/CMM [1.5-8.1 K/CMM] (11/19/17: AM) Lymphocytes # 1.7 K/CMM [1.0-5.5 K/CMM] (11/19/17:17 AM) Monocytes # [0.0-0.8 0.4 K/CMM K/CMM] (11/19/17 9:17 AM) Eosinophils # 0.2 K/CMM [0.0-0.5 K/CMM] (11/19/17 9:17 AM) PT [12.0-14.7 13.2 seconds seconds] (11/19/17 9:17 AM) INR [0.85-1.17] 1.00 (11/19/17 9:17 AM) PTT [22.9-35.8 30.6 seconds seconds] (11/19/17 9:17 AM) Immunizations Given and Recorded Vaccine Date [...]
--- OUTSIDE RECORDS SUMMARY | 2019-11-25 10:49 | XMS REPORT | Summary of Care ---
Author Author [facility] Outpatient Imaging - [facility] Organization [facility] - [facility] Address Unknown Phone Unavailable Encounter [facility] Rd[facility](FIN) [id number] Date(s): 02/04/18 - 02/04/18 [facility] Outpatient Imaging - [place] [address] [place] [phone] Encounter Diagnosis Pain in right lower leg (Final) - 02/10/18 Discharge Disposition: Home or Self Care Attending Physician: Gary Mayers MD Referring Physician: Gary Mayers MD Vital Signs No data available for [...]
--- OUTSIDE RECORDS SUMMARY | 2019-11-25 10:49 | XMS REPORT | Summary of Care ---
Author Author [facility] Organization [facility] Address Unknown Phone Unavailable Encounter [facility] Radha(FIN) [id number] Date(s): 09/10/17 - 09/10/17 [facility] [address] [place] [address]- Encounter Diagnosis Calculus of ureter (Final) - 10/29/17 Discharge Disposition: Home or Self Care Attending Physician: Jose Guadalupe Jenkins MD Referring Physician: Jose Guadalupe Jenkins MD Vital Signs Most recent to 1 oldest [Reference Range]: Height 162.56 cm (09/10/17 3:51 PM) Temperature Oral 99.0 DegF [96.4-99.1 DegF] (09/10/17 4:55 PM) Blood Pressure 165/61 mmHg [90-140/60-90 mmHg] *HI* (09/10/17 4:55 PM) Respiratory Rate 18 BRMIN [14-20 BRMIN] (09/10/17 4:55 PM) Peripheral Pulse 71 bpm Rate [60-100 bpm] (09/10/17 4:55 PM) Weight 84.091 kg (09/10/17 3:51 PM) Body Mass Index 31.82 m2 (09/10/17 3:51 PM) Problem List Condition Effective Dates Status Health Status Informan t Aortic Resolved aneurysm(Confirmed) BPH(Confirmed) Active CAD (coronary artery Active disease)(Confirmed) Gout(Confirmed) Active Hypertension(Confirm Active ed) Kidney Active stone(Confirmed) Allergies, Adverse Reactions, Alerts Substance Reaction Severity Status Procardia Active Medications No data available for this section Results ELECTROLYTES Most recent to 1 oldest [Reference Range]: Sodium Lvl [135-145 140 mEq/L mEq/L] (09/10/17 4:47 PM) Potassium Lvl 3.9 mEq/L [3.5-5.1 mEq/L] (09/10/17 4:47 PM) Chloride Lvl [95-109 103 mEq/L mEq/L] (09/10/17 4:47 PM) CO2 [24-32 mEq/L] 28 mEq/L (09/10/17 4:47 PM) AGAP [10.0-20.0 12.9 mEq/L mEq/L] (09/10/17 4:47 PM) CHEM PANEL Most recent to 1 oldest [Reference Range]: Creatinine Lvl 1.02 mg/dL [0.50-1.40 mg/dL] (09/10/17 4:47 PM) eGFR 78 mL/min/1.73m2 1 *NA* (09/10/17 4:47 PM) BUN [7-22 mg/dL] 20 mg/dL (09/10/17 4:47 PM) Glucose Lvl [70-99 114 mg/dL mg/dL] *HI* (09/10/17 4:47 PM) Calcium Lvl 8.2 mg/dL [8.5-10.5 mg/dL] *LOW* (09/10/17 4:47 PM) 1Result Comment: The eGFR is calculated using [...] 1 oldest [Reference Range]: UA Turbidity [Clear] Marked *ABN* (09/10/17 4:47 PM) UA Color [Yellow] Yellow *NA* (09/10/17 4:47 PM) UA pH [5.0-8.0] 5.0 (09/10/17 4:47 PM) UA Spec Grav 1.018 [<=1.030] (09/10/17 4:47 PM) UA Glucose [Negative Negative mg/dL mg/dL] *NA* (09/10/17 4:47 PM) UA Blood [Negative] Large *ABN* (09/10/17 4:47 PM) UA Ketones [Negative Negative mg/dL mg/dL] *NA* (09/10/17 4:47 PM) UA Protein [Negative 30 mg/dL mg/dL] *ABN* (09/10/17 4:47 PM) UA Urobilinogen <=1.0 mg/dL [0.1-1.0 mg/dL] *NA* (09/10/17 4:47 PM) UA Bili [Negative] Negative *NA* (09/10/17 4:47 PM) UA Leuk Est Trace [Negative] *ABN* (09/10/17 4:47 PM) UA Nitrite Negative [Negative] (09/10/17 4:47 PM) UA WBC [0-5 /HPF] 101 /HPF *HI* (09/10/17 4:47 PM) UA RBC [0-2 /HPF] >182 /HPF *HI* (09/10/17 4:47 PM) UA Bacteria [None Occasional /HPF Seen /HPF] *NA* (09/10/17 4:47 PM) UA Sq Epi [Few /LPF] Occasional /LPF *NA* (09/10/17 4:47 PM) UA Hyal Cast [0-2 4 /LPF /LPF] *HI* (09/10/17 4:47 PM) UA Mucus [None Seen Few /LPF /LPF] *NA* (09/10/17 4:47 PM) HEMATOLOGY Most recent to 1 oldest [Reference Range]: WBC [3.7-10.4 K/CMM] 6.8 K/CMM (09/10/17 4:47 PM) RBC [4.70-6.10 3.28 M/CMM M/CMM] *LOW* (09/10/17 4:47 PM) Hgb [14.0-18.0 g/dL] 10.2 g/dL *LOW* (09/10/17 4:47 PM) Hct [42.0-54.0 %] 31.2 % *LOW* (09/10/17 4:47 PM) MCV [80.0-94.0 fL] 95.1 fL *HI* (09/10/17 4:47 PM) MCH [27.0-31.0 pg] 31.1 pg *HI* (09/10/17 4:47 PM) MCHC [32.0-36.0 32.7 g/dL g/dL] (09/10/17 4:47 PM) RDW [11.5-14.5 %] 14.7 % *HI* (09/10/17 4:47 PM) MPV [7.4-10.4 fL] 6.5 fL *LOW* (09/10/17 4:47 PM) Platelet [133-450 184 K/CMM K/CMM] (09/10/17 4:47 PM) Segs [45.0-75.0 %] 80.6 % *HI* (09/10/17 4:47 PM) Lymphocytes 11.1 % [20.0-40.0 %] *LOW* (09/10/17 4:47 PM) Monocytes [2.0-12.0 6.5 % %] (09/10/17 4:47 PM) Eosinophils [0.0-4.0 1.5 % %] (09/10/17 4:47 PM) Basophils [0.0-1.0 0.3 % %] (09/10/17 4:47 PM) Segs-Bands # 5.5 K/CMM [1.5-8.1 K/CMM] (09/10/17 4:47 PM) Lymphocytes # 0.8 K/CMM [1.0-5.5 K/CMM] *LOW* (09/10/17 4:47 PM) Monocytes # [0.0-0.8 0.4 K/CMM K/CMM] (09/10/17 4:47 PM) Eosinophils # 0.1 K/CMM [0.0-0.5 K/CMM] (09/10/17 4:47 PM) PT [12.0-14.7 13.7 seconds seconds] (09/10/17 4:47 PM) INR [0.85-1.17] 1.05 (09/10/17 4:47 PM) PTT [22.9-35.8 33.7 seconds seconds] (09/10/17 4:47 PM) Immunizations Given and Recorded Vaccine Date Status [...]
--- OUTSIDE RECORDS SUMMARY | 2019-11-25 10:49 | XMS REPORT | Summary of Care ---
Author Author [facility] Organization [facility] Address Unknown Phone Unavailable Encounter [facility]ha(FIN) [id number] Date(s): 09/02/17 - 09/02/17 [facility] [address] [place] [address]- [phone] Encounter Diagnosis Hematuria (Discharge Diagnosis) - 09/02/17 Other specified complication of genitourinary prosthetic devices, implants and g rafts, initial encounter (Final) - 09/09/17 Hematuria, unspecified (Final) - Essential (primary) hypertension (Final) - Presence of urogenital implants (Final) - Discharge Disposition: Home or Self Care Attending Physician: Reece Puentes MD Vital Signs 1 2 3 Most recent to oldest [Reference Range]: 154.94 cm (09/02/17 5:24 AM) Height 98.7 DegF (09/02/17 8:28 AM) 98.7 DegF (09/02/17 7:14 AM) 98.3 DegF (09/02/17 5:24 AM) Temperature Oral [96.4-99.1 DegF] 104/82 mmHg (09/02/17 8:28 AM) 134/66 mmHg (09/02/17 7:14 AM) 125/81 mmHg (09/02/17 5:24 AM) Blood Pressure [90-140/60-90 mmHg] 16 BRMIN (09/02/17 8:28 AM) 16 BRMIN (09/02/17 7:14 AM) 18 BRMIN (09/02/17 5:24 AM) Respiratory Rate [14-20 BRMIN] 85 bpm (09/02/17 5:24 AM) Peripheral Pulse Rate [60-100 bpm] 81.818 kg (09/02/17 5:24 AM) Weight 34.08 m2 (09/02/17 5:24 AM) Body Mass Index Problem List Condition Effective Dates Status Health Status Informan t Aortic Resolved aneurysm(Confirmed) BPH(Confirmed) Active CAD (coronary artery Active disease)(Confirmed) Gout(Confirmed) Active Hypertension(Confirm Active ed) Kidney Active stone(Confirmed) Allergies, Adverse Reactions, Alerts Substance Reaction Severity Status Procardia Active Medications No data available for this section Results BLOOD BANK RESULTS Most recent to 1 oldest [Reference Range]: ABO/Rh O POS *Unknown* (09/02/17 6:43 AM) Antibody Scrn Positive 1 (09/02/17 6:43 AM) 1Result Comment: 09/02/2017 07:55 [id number] "Significant Findings of Positive ABSC_ called to Yossi Reinoso_ at 09/02/2017 07:55_ by KLS_. Read Back OK" ELECTROLYTES Most recent to 1 oldest [Reference Range]: Sodium Lvl [135-145 140 mEq/L mEq/L] (09/02/17 6:43 AM) Potassium Lvl 3.8 mEq/L [3.5-5.1 mEq/L] (09/02/17 6:43 AM) Chloride Lvl [95-109 106 mEq/L mEq/L] (09/02/17 6:43 AM) CO2 [24-32 mEq/L] 26 mEq/L (09/02/17 6:43 AM) AGAP [10.0-20.0 11.8 mEq/L mEq/L] (09/02/17 6:43 AM) CHEM PANEL Most recent to 1 oldest [Reference Range]: Creatinine Lvl 0.96 mg/dL [0.50-1.40 mg/dL] (09/02/17 6:43 AM) eGFR 84 mL/min/1.73m2 1 *NA* (09/02/17 6:43 AM) BUN [7-22 mg/dL] 13 mg/dL (09/02/17 6:43 AM) Glucose Lvl [70-99 87 mg/dL mg/dL] (09/02/17 6:43 AM) Calcium Lvl 8.4 mg/dL [8.5-10.5 mg/dL] *LOW* (09/02/17 6:43 AM) 1Result Comment: The eGFR is calculated [...] [Reference Range]: UA Turbidity [Clear] Marked *ABN* (09/02/17 6:06 AM) UA Color [Yellow] Red *ABN* (09/02/17 6:06 AM) UA pH [5.0-8.0] 7.0 (09/02/17 6:06 AM) UA Spec Grav 1.010 [<=1.030] (09/02/17 6:06 AM) UA Glucose Negative [Negative] (09/02/17 6:06 AM) UA Blood [Negative] Large *ABN* (09/02/17 6:06 AM) UA Ketones 15 mg/dL *NA* (09/02/17 6:06 AM) UA Protein [Negative >=300 mg/dL mg/dL] *ABN* (09/02/17 6:06 AM) UA Urobilinogen 4.0 mg/dL [0.1-1.0 mg/dL] *HI* (09/02/17 6:06 AM) UA Bili [Negative] Negative (09/02/17 6:06 AM) UA Leuk Est Moderate [Negative] *ABN* (09/02/17 6:06 AM) UA Nitrite Positive [Negative] *ABN* (09/02/17 6:06 AM) UA WBC [0-5 /HPF] 3-5 /HPF (09/02/17 6:06 AM) UA RBC [0-2 /HPF] >100 /HPF *ABN* (09/02/17 6:06 AM) UA Bacteria [None Occasional /HPF Seen /HPF] (09/02/17 6:06 AM) UA Sq Epi [Few] None Seen (09/02/17 6:06 AM) Micro? Performed (09/02/17 6:06 AM) HEMATOLOGY Most recent to 1 oldest [Reference Range]: WBC [3.7-10.4 K/CMM] 5.4 K/CMM (09/02/17 6:43 AM) RBC [4.70-6.10 4.17 M/CMM M/CMM] *LOW* (09/02/17 6:43 AM) Hgb [14.0-18.0 g/dL] 13.0 g/dL *LOW* (09/02/17 6:43 AM) Hct [42.0-54.0 %] 39.6 % *LOW* (09/02/17 6:43 AM) MCV [80.0-94.0 fL] 94.9 fL *HI* (09/02/17 6:43 AM) MCH [27.0-31.0 pg] 31.3 pg *HI* (09/02/17 6:43 AM) MCHC [32.0-36.0 32.9 g/dL g/dL] (09/02/17 6:43 AM) RDW [11.5-14.5 %] 14.7 % *HI* (09/02/17 6:43 AM) MPV [7.4-10.4 fL] 7.1 fL *LOW* (09/02/17 6:43 AM) Platelet [133-450 172 K/CMM K/CMM] (09/02/17 6:43 AM) Segs [45.0-75.0 %] 62.7 % (09/02/17 6:43 AM) Lymphocytes 25.0 % [20.0-40.0 %] (09/02/17 6:43 AM) Monocytes [2.0-12.0 7.5 % %] (09/02/17 6:43 AM) Eosinophils [0.0-4.0 3.9 % %] (09/02/17 6:43 AM) Basophils [0.0-1.0 0.9 % %] (09/02/17 6:43 AM) Segs-Bands # 3.4 K/CMM [1.5-8.1 K/CMM] (09/02/17 6:43 AM) Lymphocytes # 1.4 K/CMM [1.0-5.5 K/CMM] (09/02/17 6:43 AM) Monocytes # [0.0-0.8 0.4 K/CMM K/CMM] (09/02/17 6:43 AM) Eosinophils # 0.2 K/CMM [0.0-0.5 K/CMM] (09/02/17 6:43 AM) PT [12.0-14.7 13.7 seconds seconds] (09/02/17 6:43 AM) INR [0.85-1.17] 1.05 (09/02/17 6:43 AM) Immunizations Given and Recorded Vaccine Date [...]
--- OUTSIDE RECORDS SUMMARY | 2019-11-25 10:50 | XMS REPORT ---
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 [facility] BMI Calculated 2017-09-10 21:51:00 [facility] Systolic (mm Hg) 2017-09-02 14:28:00 [facility] [place] Diastolic (mm Hg) 2017-09-02 14:28:00 [facility] Respitory Rate 2017-09-02 14:28:00 [facility] Temperature Oral (F) 2017-09-02 14:28:00 98.7 F [facility] Respitory Rate 2017-09-02 13:14:00 [facility] Temperature Oral (F) 2017-09-02 13:14:00 98.7 F [facility] Systolic (mm Hg) 2017-09-02 13:14:00 [facility] Diastolic (mm Hg) 2017-09-02 13:14:00 [facility] Weight 2017-09-02 11:24:00 [facility] BMI Calculated 2017-09-02 11:24:00 [facility] Systolic (mm Hg) 2017-09-02 11:24:00 [facility] Diastolic (mm Hg) 2017-09-02 11:24:00 [facility] Height 2017-09-02 11:24:00 154.94 cm [facility] Respitory Rate 2017-09-02 11:24:00 [facility] Heart Rate 2017-09-02 11:24:00 [facility] Temperature Oral (F) 2017-09-02 11:24:00 98.3 F [facility] Systolic (mm Hg) 2017-08-16 23:30:00 [facility] Diastolic (mm Hg) 2017-08-16 23:30:00 [facility] Respitory Rate 2017-08-16 23:30:00 [facility] Heart Rate 2017-08-16 23:30:00 [facility] Temperature Oral (F) 2017-08-16 23:30:00 97.5 F [facility] Heart Rate 2017-08-16 22:41:00 [facility] Systolic (mm Hg) 2017-08-16 22:41:00 [facility] [place] Diastolic (mm Hg) 2017-08-16 22:41:00 [facility] Respitory Rate 2017-08-16 22:41:00 [facility] Systolic (mm Hg) 2017-08-16 22:30:00 [facility] [place] Diastolic (mm Hg) 2017-08-16 22:30:00 [place] Respitory Rate 2017-08-16 22:30:00 [facility] Heart Rate 2017-08-16 22:30:00 [facility] Temperature Oral (F) 2017-08-16 22:30:00 97.5 F [facility] Temperature Oral (F) 2017-08-16 22:11:00 98.2 F [facility] Height 2017-08-15 22:40:00 160.02 cm [facility] Weight 2017-08-15 22:40:00 [facility] BMI Calculated 2017-08-15 22:40:00 [facility] Systolic (mm Hg) 2017-04-30 16:37:00 [facility] Diastolic (mm Hg) 2017-04-30 16:37:00 [facility] Respitory Rate 2017-04-30 16:37:00 [facility] Heart Rate 2017-04-30 16:37:00 [facility] Temperature Oral (F) 2017-04-30 16:37:00 98.1 F [facility] Heart Rate 2017-04-30 12:44:00 [facility] Temperature Oral (F) 2017-04-30 12:44:00 98.2 F [facility] Respitory Rate 2017-04-30 12:44:00 [facility] Systolic (mm Hg) 2017-04-30 12:44:00 [facility] [place] Diastolic (mm Hg) 2017-04-30 12:44:00 [facility] Systolic (mm Hg) 2017-04-30 08:58:00 [facility] Diastolic (mm Hg) 2017-04-30 08:58:00 [facility] Respitory Rate 2017-04-30 08:58:00 [facility] Heart Rate 2017-04-30 08:58:00 [facility] Temperature Oral (F) 2017-04-30 08:58:00 98.1 F [facility] BMI Calculated 2017-04-29 16:55:00 [facility] Weight 2017-04-29 16:55:00 [facility] Height 2017-04-29 16:55:00 162.56 cm [place] Diastolic (mm Hg) 2014-03-23 18:05:00 [place] Respitory Rate 2014-03-23 18:05:00 [place] Systolic (mm Hg) 2014-03-23 18:05:00 [place] Temperature Oral (F) 2014-03-23 18:05:00 97.8 F [place] Heart Rate 2014-03-23 18:05:00 [place] Weight 2014-03-23 16:46:00 [place] Respitory Rate 2014-03-23 16:46:00 [place] Temperature Oral (F) 2014-03-23 16:46:00 98.1 F [place] Diastolic (mm Hg) 2014-03-23 16:46:00 [place] Heart Rate 2014-03-23 16:46:00 [place] Systolic (mm Hg) 2014-03-23 16:46:00 [place] BMI Calculated 2014-03-23 16:46:00 [place] Height 2014-03-23 16:46:00 162.56 cm [facility] Procedures Procedure Date / Time Performed Performing Clinician Sour e GLUCOSE POC 2018-12-12 23:07:00 Unknown, Provider Livan Hubbard [facility] OPHTH - TRABECULECTOMY 2018-12-12 20:31:00 Ham Tijerina [facility] ABO/RH CONFIRMATION 2018-12-12 17:33:00 Rickey Tijerina [facility] TYPE AND SCREEN 2018-12-12 17:08:00 Rickey Tijerina T&S - COLLECTION 2018-12-12 17:08:00 Rickey Tijerina BMP POC 2018-12-12 17:03:00 Unknown, Provider Livan Hubbard [facility] 12 LEAD EKG 2018-12-12 17:02:55 Rickey Tijerina XRAY CHEST 2 VIEWS 2018-12-12 16:58:59 Rickey Tijerina CBC/DIFF 2018-12-12 16:58:00 Rickey Tijerina PT/INR 2018-12-12 16:58:00 Rickey Tijerina CBC 2018-12-12 16:58:00 Rickey Tijerina AAA - Repair of abdominal aortic aneurysm using bifurcation monisha t [facility] [place] Cholecystectomy [facility] , [facility] Miscellaneous operations<sup>1</sup> [facility] ATILIO Miller [facility], [facility] Cystoscopy ATILIO Corbin [facility] Procedure on back<sup>2</sup> ATILIO Corbin [facility] Plan of Care Planned Activity Planned Date Details Comments Source Future Scheduled Test 2020-04-06 00:00:00 IMM Influenza Seas onal Apr to September (>/= 19 yrs) [code = IMM Influenza Seasonal Apr to September (>/= 19 yrs)] [facility] Scheduled Test 2018 00:00:00 IMM Pneumococcal A ge 65 and Up [code = IMM Pneumococcal Age 65 and Up] [facility] Scheduled Test 2003-09-16 00:00:00 Colorectal Cancer Scrn Annual (FIT/FOBT) Age 50 to 75 [code = Colorectal Cancer Scrn Annual (FIT/FOBT) Age 50 to 75] [facility] Encounters Start Date/Time End Date/Time Encounter Type Admission Type Att[facility] Care Department Encounter ID Source 2019-01-06 08:19:31 2019-01-06 08:19:31 Outpatient [facility] [id number] [facility] 2018-12-23 08:22:31 2018-12-23 08:22:31 Outpatient [facility] [id number] [facility] 2018-12-17 16:57:05 2018-12-17 16:57:05 Outpatient [facility] [id number] [facility] 2018-12-16 00:00:00 2018-12-16 00:00:00 Outpatient [facility] [id number] [facility] 2018-12-13 00:00:00 2018-12-13 00:00:00 Outpatient [facility] [id number] [facility] 2018-12-12 12:13:44 2018-12-12 12:13:44 Emergency [facility] [id number] [facility] 2018-12-12 11:35:30 2018-12-12 11:35:30 Emergency [facility] [id number] [facility] 2018-12-12 00:00:00 2018-12-12 00:00:00 Outpatient [facility] [id number] [facility] 2018-12-12 00:00:00 2018-12-12 00:00:00 Emergency [facility] [id number] [facility] 2018-12-12 00:00:00 2018-12-12 00:00:00 Emergency [facility] [id number] [facility] 2018-10-02 13:30:00 2018-10-03 04:59:00 Outpatient [facility] [id number] [facility] 2018-10-02 08:30:00 2018-10-02 23:59:00 Outpatient Minna Gil Gordy [facility] [id number] 2018-02-04 15:40:00 2018-02-05 04:59:00 Outpt Diag Services [facility] Outpatient Imaging - [place] [id number] [facility] [place] 2018-02-04 10:40:00 2018-02-04 23:59:00 Outpatient Gary Mayers M[facility]OIP M[facility]OIP [id number] 2017-11-26 10:29:00 2017-11-26 15:40:00 Day Surgery [facility] [id number] [facility] 2017-11-26 05:29:00 2017-11-26 10:40:00 Outpatient Jose Guadalupe Jenkins [facility] [id number] 2017-11-18 14:29:00 2017-11-19 04:59:00 Outpatient [facility] [id number] [facility] 2017-11-18 09:29:00 2017-11-18 23:59:00 Outpatient Jose Guadalupe Jenkins [facility] [id number] 2017-09-10 15:00:00 2017-09-10 18:00:00 Outpatient [facility] [id number] [facility] 2017-09-10 09:00:00 2017-09-10 12:00:00 Outpatient Jose Guadalupe Jenkins [facility] [id number] 2017-09-02 11:16:00 2017-09-02 15:05:00 Emergency [facility] [id number] [facility] 2017-09-02 05:16:00 2017-09-02 09:05:00 Outpatient Reece Puentes [facility] [id number] 2017-08-15 22:18:00 2017-08-17 02:18:00 Inpatient [facility] [id number] [facility] 2017-08-15 16:18:00 2017-08-16 20:18:00 Outpatient [facility] [id number] 2017-06-12 14:00:00 2017-06-13 05:59:00 Outpatient [facility] [id number] [facility] 2017-06-12 08:00:00 2017-06-12 23:59:00 [facility] [id number] 2017-04-29 16:10:00 2017-04-30 20:48:00 Bedded Outpatient [facility] [id number] [facility] 2017-04-29 11:10:00 2017-04-30 15:48:00 Outpatient Minna Gil [facility] [id number] 2017-04-11 13:22:00 2017-04-12 04:59:00 Outpt Diag Services [facility] Outpatient Imaging - [place] [id number] [facility] [place] 2017-04-11 08:22:00 2017-04-11 23:59:00 Outpatient Minna Gil [facility] M[facility] [id number] 2014-03-23 16:44:00 2014-03-23 18:47:00 Emergency Center [facility] [id number] [facility] 2014-03-23 11:44:00 2014-03-23 13:47:00 Outpatient An Oliveros [facility] [id number] Results Test Description Test Time Test Comments Results Result Comments Source - XR HIP W/PEL UNI 2+V LT 2019-01-24 10:29:00 Name: EDTERESA [facility] : 1955 Age/S:63 /M [address] [facility] Unit#:[id number] Loc: [place] [address] Phys: Rickey Patiño MD Dis Date: PHONE #: [phone] Status: REG ER FAX #: [phone] Exam Date: 01/24/2019 Reason: trauma, pain EXAMS: CPT CODE: [id number] XR HIP W/PEL UNI 2+[place] [address] CLINICAL HISTORY: trauma, pain TECHNIQUE: Neutral and [...] Suman Briceno RT(R)(CT) Trnscrpt Data: 01/24/2019 (1029) [email or web address] Orig Print D/T: S: 01/24/2019 (1033) PAGE 1 Signed Report - XR KNEE 3 V LT 2019-01-24 10:29:00 Name: TERESA BAZAN [facility] : 1955 Age/S:63 /M [address] [facility] Unit#:[id number] Loc: [place], [place] x [address] Phys: Rickey Patiño MD Dis Date: PHONE #: [phone] Status: REG ER FAX #: [phone] Exam Date: 01/24/2019 Reason: fall EXAMS: CPT CODE: [id number] XR KNEE 3 V LT [address] CLINICAL HISTORY: Pain status post fall TECHNIQUE: [...] Technologist: Suman Briceno RT(R)(CT) Trnscrpt Data: 01/24/2019 (3125) [email or web address] Orig Print D/T: S: 01/24/2019 (6422) PAGE 1 Signed Report - US ABDOMEN COMPLETE 2018-12-25 10:55:00 Name : TERESA WARD [facility] : 1955 Age/S: 63 / M [address] [facility] Unit #: [id number] Loc: [place] [address] Phys: Davida Sanchez MD Acct: [id number] Dis Date: Status: REG CLI PHONE #: [phone] Exam Date: 12/25/2018 1018 FAX #: [phone] Reason: CIRRHOSIS EXAMS: CPT CODE: [id number] US ABDOMEN COMPLETE 80666 TECHNIQUE - US ABDOMEN COMPLETE . COMPARISON: [...] stone. 1.5 cm left kidney cyst. at 1055 Reported and signed by: Rito Aguilera M.D. PAGE 1 Signed Report (CONTINUED) [facility] 1955 Age/S: 63 / M [address] Unit #: [id number] Loc: [place] [address] Phys: Davida Sanchez MD Acct: [id number] Dis Date: Status: REG CLI PHONE #: [phone] Exam Date: 1018 FAX #: [phone] Reason: CIRRHOSIS EXAMS: CPT CODE: [id number] US ABDOMEN COMPLETE 82433 <Continued> CC: Davida Sanchez MD; Rito Barnes Technologist: EDWARD DYE RT(R),RDMS Trnscb Date/Time: 12/25/2018 (1055) t.SDR.FLORIDALMA Orig Print D/T: S: 12/25/2018 (1058) Probe: PAGE 2 Signed Report POCT GLUCOSE POC docked device 2018-12-12 18:09:00 Test Item Glucose POC (test code = 65271608) 97 mg/dL 74-106 Lab Interpretation (test code = 66044-9) [facility] [id number] 13:40:14IMPRESSION: Central pulmonary vascular congestion and bibasilar atelectasis. Dictated By: Matthew Ryan MD, 12/12/2018 12:19 PM I have reviewed the study and agree with the findings in this report. Signed By: [place] Lopez MD, 12/12/2018 1:40 PM Interface, Rad/Mammog In - 12/12/2018 1:45 PM CDTEXAMINATION: XRAY CHEST 2 VIEWS, Frontal and lateralINDICATION: Pre-op COMPARISON: Chest x-ray 08/22/2009 FINDINGS: TUBES/LINES: NoneLUNGS: Persistent left basilar and right medial basilar patchyopacities, likely subsegmental atelectasis.PLEURA: No effusions or pneumothorax. Blunting of the bilateral lateralcostophrenic angles, possibly scarring.HEART/MEDIASTINUM: Stable cardiac silhouette. Aortic vascularcal cifications. Prominent central perihilar vasculature.MUSCULOSKELETAL: No acute findings.UPPER ABDOMEN: Partially visualized stent overlying the thoracic lumbar spine. Cholecystectomy clips.IMPRESSIONIMPRESSION: Central pulmonary vascular co ngestion and bibasilar atelectasis.Dictated By: Matthew Ryan MD, 12/12/2018 12:19 PM I have reviewed the study and agree with the findings in this report.Signed By: [place] Lopez MD, 12/12/2018 1:40 PMHarris HealthABO/RH CONFIRMATION 2018-12-12 13:24:00* Test Item Value Reference Range Interpretation Comments ABO/RH (test code = 48612989) O POS [facility] and Aaifhw3434-27-18 13:22:00* Test Item Value Reference Range Interpretation Comments Specimen Expiration (test code = 70501731) 12/15/2018 23:59 ABO/RH (test code = 75785156) O POS Antibody Screen (test code = 99501026) NEG [facility]PT/[id number] 13:05:00* Test Item Value Reference Range Interpretation Comments PT (test code = 5902-2) 13.8 11.8- 15.0 Seconds INR (test code = 58247110) 1.1 Refer to INR ranges 2.0 - 3.0 for moderate intensity anticoagulation2.5 - 3.5 for high intensity anticoagulation Lab Interpretation (test code = 86094-3) Normal [place] [address] LEAD [id number] 13:00:3112 LEAD EKG FOR [facility] Test Date: [id number] Name: TERESA WARD Department: Room: Gender: M [employer] Counselor: [id number]: 1955 Requested By: RICKEY TIJERINA Order Number: [id number] [place] MD: Debi Kelley M.D. MeasurementsIntervals [place] Rate: 60 P: 55PR: 150 QRS: -26QRSD: 119 T: 76QT: 469 QTc: 469 Interpretive StatementsSINUS RHYTHMPOSSIBLE LEFT ATRIAL ENLARGEMENTBORDERLINE LEFT AXIS DEVIATIONLEFT VENTRICULAR HYPERTROPHY AND ST-T CHANGEElectronically Signed On 12-12-2018 13:00:27 CDT by Debi Kelley M.D.[facility]CBC/Tgqk6166-94-36 12:38:00* Test Item Value Reference Range Interpretation Comments WBC (test code = 6690-2) 6.5 K/uL 4.5-12 RBC (test code = 789-8) 4.24 4.60- 6.20 M/uL L Hemoglobin (test code = 718-7) 13.0 g/dL 14-18 L Hematocrit (test code = 4544-3) 42.1 % 40-54 MCV (test code = 787-2) 99.3 fL 82-92 H MCH (test code = 785-6) 30.7 pg 27-31 MCHC (test code = 786-4) 30.9 g/dL 32-36 L RDW (test code = 56699-2) 52.2 fL 35.1-43.9 H Platelet (test code = 777-3) 101 K/uL 150-400 L Mean Platelet Volume (test code = 92728-5) 10.2 fL 9.4-12.4 Percent NRBC (test code = 89375791) 0.0 % Neutrophil (test code = 770-8) 72.7 % 34-67.9 H Lymphs (test code = 736-9) 19.8 % 21.8-50 L Monocytes (test code = 5905-5) 5.4 % 5.3-12 Eos (test code = 713-8) 1.1 % 0.8-5 Basos (test code = 706-2) 0.5 % 0.2-1.2 Immature Granulocytes (test code = 30833352) 0.5 % 0-0.5 Neutrophils (Absolute) (test code = 90132473) 4.69 K/uL 1.78-5.3 6 Lymphs (Absolute) (test code = 15264095) 1.28 K/uL 1.32-3.57 L Monocytes(Absolute) (test code = 76251419) 0.35 K/uL 0.3-0.82 Eos (Absolute) (test code = 24576804) 0.07 K/uL 0.04-0.54 Baso (Absolute) (test code = 26214391) 0.03 K/uL 0.01-0.08 Immature Grans (Abs) (test code = 98577362) 0.03 K/uL 0-0.03 Absolute NRBC (test code = 90052325) 0.00 K/uL Lab Interpretation (test code = 20054-7) Abnormal [facility] POC docked nqsaxg2018-65-39 12:10:00* Test Item Value Reference Range Interpretation Comments Sodium POC (test code = 82179270) 141 mmol/L 136-145 Potassium POC (test code = 34001924) 4.1 mmol/L 3.5-5.1 Chloride POC (test code = 83434528) 105 mmol/L 98-107 TCO2 POC (test code = 62603369) 24 mmol/L 21-32 Urea Nitrogen POC (test code = 48778941) 26 mg/dL 7-18 H Creatinine POC (test code = 70709945) 1.2 mg/dL 0.6-1.3 Glucose POC (test code = 17817459) 101 mg/dL 74-106 Ionized Calcium POC (test code = 37030105) 1.19 mmol/L 1.15-1.29 eGFR If Africn Am (test code = 88491978) >60 mL/min/1.73 m 2 GFR, Estimated (test code = 94121447) >60 mL/min/1.73 m2 Hemoglobin POC (test code = 32349092) 15.0 g/dL 12-16 15 Hematocrit POC (test code = 34710149) 44.0 % 37-47 Lab Interpretation (test code = 35229-0) Abnormal [facility] CSEOR4008-01-28 12:57:0063[facility] DKPZC0843-05-26 12:57:001.2MH XamaqfjjnCYXEKBNVVJSX5445-96-82 14:17[facility] GYYUIGUXVBYH9563-05-09 14:17:0081 PgunkarrdROVJDZGRAVVH8225-20-03 14:17:000.98 IzpqwosljHUNMKAQLKMBO6503-90-23 14:17:0021 KxoofxfwuPKKKOJSBHPBF8678-57-37 14:17:0087 FewpiszjsURCSKDVDDNPU9013-56-39 14:17:07526BL SoutheastELECTROLYTES 2017-11-19 14:17:004.3MH FrepcdjhyVONOTAXKBSXR0852-45-68 14:17:0028[facility] PDEDCKRKVABE5384-20-49 14:17:59032EDWorcester County HospitalWowsvgamjLFKUPFXABWME6671-39-85 14:17:008.6 LsjpauvpsEFJFEHCCGN9881-06-60 14:17:00* Test Item Value Reference Range Interpretation Comments INR (test code = INR) 1.00 1 0.85-1.17 BjkmqipgjGGYWLIBZXV8391-27-80 14:17:00* Test Item Value Reference Range Interpretation Comments PTT (test code = PTT) 30.6 s 22.9-35.8 WspcscserIMLEEEUXLR1176-39-41 14:17:00* Test Item Value Reference Range Interpretation Comments PT (test code = PT) 13.2 s 12.0-14.7 TzhlohwqsUIHPYFIUFJ6599-70-61 14:17:000.2M UlxlxmrjbAFISAAQBCJ5218-01-98 14:17:000.4 NnsjbqxvkLPXIYOGNWS6908-65-31 14:17:000.8 [facility] 2017-11-19 14:17:004.0 IrjwfjjikHKOUAFDHFG4301-42-76 14:17:008.0[facility] XOSORONAGI2576-22-93 14:17:001.7 TgscaopjlIBRVXHUWIJ3321-67-39 14:17:003.1M JszzewcswTUCFXMASFW6532-52-25 14:17:0030.6M ScfcttzwbXSRCZRMHZU5524-30-60 14:17:0056.6M DpapygnukQPDEITTUQQ0293-52-68 14:17:90049PK [facility] 2017-11-19 14:17:007.6M BnbuyifbiGWNIMCNZQR8841-22-68 14:17:0039.5[facility] RBUFGZDJLL1962-47-38 14:17:0014.5[facility] HospitalEujqpqtmaSUXZMDHMYE0391-56-38 14:17:0031.9[facility] HospitalCgdsztwgrIDWKYLAVLL0781-32-59 14:17:00* Test Item Value Reference Range Interpretation Comments MCH (test code = MCH) 29.1 pg 27.0-31.0 AacddqurdFYBQFRKZSL5429-63-33 14:17:0091.1M DwajdjvwdPLTOILTLMF7069-91-02 14:17:0012.6M DalseucqhFLLYRJJLJF8652-99-05 14:17:004.33 [facility] 2017-11-19 14:17:005.6MH SoutheastURINE AND DVXUY4081-05-03 14:17:00>182 [facility] AND ZYQZC9508-53-34 14:17:00Negative (11/19/17 9:17 AM) [facility] SNSKR1703-97-52 14:17:005 [facility] STOOL 2017-11-19 14:17:00Negative *NA*(11/19/17 9:17 AM) [facility] STO[facility] 2017-11-19 14:17:00Large *ABN*(11/19/17 9:17 AM) [facility] 2017-11-19 14:17:00Negative (11/19/17 9:17 AM) [facility] STO[facility] 2017-11-19 14:17:00Clear (11/19/17 9:17 AM) [facility] [id number] 14:17:00* Test Item Value Reference Range Interpretation Comments UA Spec Grav (test code = UA Spec Grav) 1.017 1 [id number] 14:17:00* Test Item Value Reference Range Interpretation Comments UA pH (test code = UA pH) 5.0 1 5.0-8.0 [facility] [id number] 22:47:0078 [facility] [id number] 22:47:80416FD [facility] QCDQC3577-43-49 22:47:003.9 [facility] PANEL 2017-09-10 22:47:23595QX [facility] [id number] 22:47:0028 [facility] CHE[facility] [id number] 22:47:008.[facility] KMEEG5991-61-79 22:47:001.02 [facility] [id number] 22:47:0020 [facility] NXJUN7200-02-19 22:47:05732HN [facility] CHXMU7290-29-28 22:47:0012.9 [facility] 2017-09-10 22:47:00* Test Item Value Reference Range Interpretation Comments INR (test code = INR) 1.05 1 0.85-1.17 YradcuybaULSXKBTMXQ8678-68-66 22:47:00* Test Item Value Reference Range Interpretation Comments PT (test code = PT) 13.7 s 12.0-14.7 MzgrhideaVWPIJXEXXM3666-79-10 22:47:00* Test Item Value Reference Range Interpretation Comments PTT (test code = PTT) 33.7 s 22.9-35.8 HconqluunAJQHLORFLU6178-74-33 22:47:0080.6MH XdzuwlppkBXOPCVBSNI1149-94-56 22:47:0011.1M YexlikxwlWYGRATXMIO3805-60-68 22:47:006.5 [facility] 2017-09-10 22:47:001.5 FbggenddeEVRUBOZYCD6075-61-42 22:47:000.1MH [facility] GYONJTCYSO3362-22-24 22:47:000.4 RziyiqgauCBTEUTBORE5573-90-89 22:47:000.8 TafochcpjHEIQUZZNKJ0901-58-08 22:47:005.5 KwslnoaajFLEYORJXOK3007-00-93 22:47:000.3M OkyfnojuwAJDXNVNBDJ5755-54-67 22:47:00* Test Item Value Reference Range Interpretation Comments MCH (test code = MCH) 31.1 pg 27.0-31.0 AidoqwsqpRRZATCDHPX0220-10-43 22:47:0095.1M YovrccygyDXUWVQPYFQ6173-09-42 22:47:0031.2M ZhpelhwzuFLPWUXLRPD4240-64-25 22:47:0010.2M [facility] 2017-09-10 22:47:003.28 VycbixjyvKBPFLXCRCH3929-71-55 22:47:006.8[facility] QOPFHAUIXU6119-99-60 22:47:006.5 XttgjhqlqBMTXYGURMU3441-78-64 22:47:12561QO MbnoprcnbYGWWYUZTDQ6992-48-09 22:47:0014.7 AardyphurCSBCTWEYHJ3582-98-51 22:47:0032.7 [facility] CEXXR5871-72-40 22:47:00>182MH [facility] OSASW1407-71-05 22:47:76215CR [facility] FWKKF6529-36-55 22:47:004MH [facility] EIOMJ3741-28-94 22:47:00Trace *ABN*(09/10/17 4:47 PM) [facility] QDZFD0795-39-82 22:47:00Negative (09/10/17 4:47 PM) [facility] TKVKX9804-14-23 22:47:00Marked *ABN*(09/10/17 4:47 PM)[facility] NQLGX5331-83-91 22:47:00* Test Item Value Reference Range Interpretation Comments UA Spec Grav (test code = UA Spec Grav) 1.018 1 [facility] SFSEP5069-60-73 22:47:00Yellow *NA*(09/10/17 4:47 PM)[facility] OFVQH8725-35-68 22:47:00* Test Item Value Reference Range Interpretation Comments UA pH (test code = UA pH) 5.0 1 5.0-8.0 [facility] SORMK5789-66-65 22:47:00Negative *NA*(09/10/17 4:47 PM) [facility] FCPWD3053-62-96 22:47:00Large *ABN*(09/10/17 4:47 PM)[facility] PYYLYIX1375-83-95 12:43:00Positive 1(09/02/17 6:43 AM)[facility] HospitalPgawmyekbOCQMROTEBQGY2413-31-78 12:43:0011.8[facility] HospitalJyyfnfsenGRCPZORZBDBY4164-00-00 12:43:0084[facility] HospitalFnjdnpdkdQIUQRNRLMMPE6241-79-67 12:43:008.4[facility] HospitalELECTROLYTES 2017-09-02 12:43:80591BM IoumvjfwhMFMKAEDLUNUF1689-90-05 12:43:0026[facility] WELLXFUMYNWT2488-99-54 12:43:0013[facility] HospitalGjcshzavwEWLFSKHNWEME0002-81-93 12:43:000.96 MgotfulvaUCXVCUOPSVHT0026-42-60 12:43:0087 MqhywyxvgWGNWVVYXKMGJ5502-78-25 12:43:96945FP RizzcenplCRFXBLAMLAYL6204-98-45 12:43:003.8[facility] 2017-09-02 12:43:003.4 QphwgybzdSBTFGRNGKW6559-58-50 12:43:001.4[facility] VAQPTLWOMO5503-65-66 12:43:000.4[facility] HospitalPnizvvqmrJBUHWOPERC2339-64-81 12:43:000.9[facility] HospitalBehlfcssdCKUBEKNCPE6789-82-42 12:43:003.9[facility]BvyrgjashNYJSHAFNXV5271-51-05 12:43:000.2MM[facility] HospitalIckqkromwASALYLDJAD4780-67-16 12:43:0025.0[facility] HospitalATOLOGY 2017-09-02 12:43:007.5[facility] HospitalAuhfnjkrkHETXFWJVHR1350-66-84 12:43:0062.7[facility] LVUAMXBOMN6525-16-71 12:43:0032.9[facility] HospitalMqhbuoftnZAEWWDLYFP2360-85-99 12:43:00* Test Item Value Reference Range Interpretation Comments MCH (test code = MCH) 31.3 pg 27.0-31.0 [facility] HospitalYrgtzredlKTRBEZFWCO0126-00-78 12:43:0094.9[facility] HospitalJldajzygpLIANQXXNZH2458-78-73 12:43:0039.6MMiddlesex County HospitalApqfpknioROCYWUDSKF7598-07-61 12:43:0014.7[facility] HospitalATOLOGY 2017-09-02 12:43:007.1MMiddlesex County HospitalZcjibbxzyUBLNTPYKCZ8845-45-43 12:43:04359AN[facility] KNBQOJJBEA0915-80-45 12:43:0013.0[facility] HospitalIayzosgpvWLKSCSYJJN7534-98-75 12:43:004.17[facility] HospitalMeekstqmtTZJBFLHZSV2939-45-79 12:43:005.4[facility] HospitalWlyydgktmFIEFVJXICC3479-81-81 12:43:00* Test Item Value Reference Range Interpretation Comments INR (test code = INR) 1.05 1 0.85-1.17 [facility] HospitalYnnjzerqhTTONABWYDY6947-25-83 12:43:00* Test Item Value Reference Range Interpretation Comments PT (test code = PT) 13.7 s 12.0-14.7 [facility] MPSHS9121-78-04 12:06:00None Seen (09/02/17 6:06 AM) [facility] ZIONP7525-45-46 12:06:00Performed (09/02/17 6:06 AM) [facility] SFCVB6290-07-09 12:06:00Moderate *ABN*(09/02/17 6:06 AM) [facility] FEUOS9925-72-59 12:06:0015 [facility] STOOL 2017-09-02 12:06:00* Test Item Value Reference Range Interpretation Comments UA pH (test code = UA pH) 7.0 1 5.0-8.0 [facility] ZSIZC7490-71-30 12:06:00Negative (09/02/17 6:06 AM)[facility] YOELS1702-93-19 12:06:00Large *ABN*(09/02/17 6:06 AM)[facility] QIWUL5845-44-88 12:06:00Marked *ABN*(09/02/17 6:06 AM)[facility] UTIAB0506-62-26 12:06:00* Test Item Value Reference Range Interpretation Comments UA Spec Grav (test code = UA Spec Grav) 1.010 1 [facility] HNYWH5491-59-14 12:06:00Negative (09/02/17 6:06 AM)[facility] EGSAF8351-80-91 12:06:004.0MH [facility] STOOL 2017-09-02 12:06:00Positive *ABN*(09/02/17 6:06 AM)[facility] STOOL 2017-09-02 12:06:00Red *ABN*(09/02/17 6:06 AM) [facility]IAC ENZYMES 2017-08-15 23:06:00<0.02 [facility]IAC AOEWDKE4515-91-18 23:06:00* Test Item Value Reference Range Interpretation Comments CK MB Index (test code = CK MB Index) 1.5 1 <=2.5 [facility]CARDIAC DQLMWOW3171-42-56 23:06:001.9 [facility]IAC ENZYMES 2017-08-15 23:06:20859HL SoutheastCHEM AFXRK8350-59-35 23:06:0077 [facility] VRWAR1617-50-71 23:06:007.9 [facility]CHEM ODMBJ3141-75-50 23:06:0028 [facility]CHEM SKWIR2118-84-73 23:06:003.2M [facility]CHE[facility] DYTYJ9136-53-32 23:06:008.0 [facility] KYMUX0300-46-21 23:06:78584JN SoutheastCHEM PANEL 2017-08-15 23:06:79942KC SoutheastCHEM ATAAM3371-72-82 23:06:0025 [facility] OPPEI1983-77-86 23:06:0021 [facility]CHE[facility] OUOWW3017-61-64 23:06:00* Test Item Value Reference Range Interpretation Comments B/C Ratio (test code = B/C Ratio) 13 1 6-25 [facility] CDLZK7364-16-42 23:06:0012.0[facility] BRWZK0194-09-00 23:06:000.5[facility] BNJTX9869-95-47 23:06:00* Test Item Value Reference Range Interpretation Comments A/G Ratio (test code = A/G Ratio) 0.7 1 0.7-1.6 [facility]CHEM LGCFP3982-75-25 23:06:004.8[facility] BLYSA6732-28-39 23:06:001.03 [facility]CHE[facility] VIZQP3083-81-02 23:06:0013 SoutheastCHEM PANEL 2017-08-15 23:06:004.0[facility]CHE[facility] ASLHG1498-41-44 23:06:46572CQW[facility] ATXZT0335-90-60 23:06:0078 MbvxmpcbzHSSCYLBVRY5274-16-67 23:06:000.6M TicjxxaebYLVHHVBSZZ0476-91-23 23:06:001.7 HcqempfmqLZSHAVPNHF9630-57-36 23:06:004.4 GybgjebboWMBGJRBYEV1798-08-66 23:06:0010.2M [facility]HEMATOLOGY 2017-08-15 23:06:001.6M IblgqibtvIWBCBCMSXL2219-16-89 23:06:000.1[facility] ZGGXSAXOFP0563-89-67 23:06:000.7 VlfdhnmsuDYQXRSBJBO0483-77-87 23:06:0023.6M CxzmygeroGVHBIFVLUW3173-49-35 23:06:0063.9 BawfwmbbhTPKZZLRNIX9678-82-37 23:06:00* Test Item Value Reference Range Interpretation Comments MCH (test code = MCH) 31.6 pg 27.0-31.0 CaflbqwahLDGOAXAEPC8710-81-19 23:06:0095.7 NashpvcstDWOXGXJTYL1393-71-30 23:06:0033.0 SsjivhtyyYZHLHHJNRB1709-13-92 23:06:007.2M [facility]HEMATOLOGY 2017-08-15 23:06:0015.9 JjcysaxjeFTNLDMYUIW5596-81-78 23:06:02402HB[facility] REVASWGBEB3855-84-90 23:06:0013.3MH InplheqrlCOBGTKYUPW6102-33-68 23:06:0040.2M VwwlsemaqXYXYYYPPLJ5180-51-01 23:06:004.20 IrshohpzkHXHLIDOFTK9975-87-67 23:06:006.8 [facility] ENDJK9075-54-05 22:59:003 [facility] RQDJC0881-40-21 22:59:001 [facility] IOAXG3647-69-02 22:59:00Negative *NA*(08/15/17 4:59 PM) [facility] SZULW8324-92-27 22:59:00Negative (08/15/17 4:59 PM) [facility] VJXET7470-92-44 22:59:00Negative (08/15/17 4:59 PM) [facility] ZMVYP5421-69-98 22:59:00Small *ABN*(08/15/17 4:59 PM) [facility] GQBMW4969-73-64 22:59:00* Test Item Value Reference Range Interpretation Comments UA pH (test code = UA pH) 6.0 1 5.0-8.0 [facility] ZPXXA4364-22-45 22:59:00* Test Item Value Reference Range Interpretation Comments UA Spec Grav (test code = UA Spec Grav) 1.009 1 [facility] LCAKS1687-39-32 22:59:00Clear (08/15/17 4:59 PM)[facility] CHE[facility] GROTB3184-85-98 15:15:0091[facility]CHE[facility] HNDRX1931-10-09 15:15:000.9[facility] HospitalVqxxazbcjIOTFAVBGVNLS5933-28-01 09:38:0010.9[facility] HospitalTconbxmazPMHWGVBFUIUV9539-71-75 09:38:0097[facility] HospitalFvbtfwbryDLSIJZHNRFFR8190-25-57 09:38:008.1M SoutheastELECTROLYTES 2017-04-30 09:38:0027[facility] HospitalPgenqlfcrRFNMTXQZJQQZ7804-40-13 09:38:003.9[facility] HETNHZLZWKXL8503-09-60 09:38:53188AQ MyiybanymYFYYEBCBCPYU0984-05-08 09:38:60544 PfzyqgqumLVABNTTFPLZV6341-30-31 09:38:0015 NhonojsgzWOKXOXYXDQLQ1521-16-60 09:38:000.76MH HepsjlgwlWYWEEJOINYMF4676-39-87 09:38:0084MH [facility]HEMATOLOGY 2017-04-30 09:38:0033.2MH CtrddfzqoEHLFCPSKIS9555-13-48 09:38:00* Test Item Value Reference Range Interpretation Comments MCH (test code = MCH) 30.2 pg 27.0-31.0 QrjjzjaxrWICIUODBBV9449-76-35 09:38:0090.9 GoomphtuiADXIHRRFCJ4217-52-86 09:38:0034.4 LfswabihiPTPLWQCNPJ6994-41-56 09:38:007.0 [facility] 2017-04-30 09:38:21627DI IpztjcrboSHOJYKAEGT3574-61-12 09:38:0015.7 [facility] BYJLJHLJMX3500-90-76 09:38:0011.4 UmhphvexlYIYWIIHVSU4852-30-30 09:38:003.78 OkeqxtbiaILDPYSFKWH0971-85-09 09:38:005.6MH VmxqwvyuuGJCEIUDESC2331-80-83 09:38:000.5MH IdbicvlyaSOIOHZZBOU1298-72-04 09:38:000.2MH [facility]HEMATOLOGY 2017-04-30 09:38:001.5 ObkbdxnrmLZNNLXSZBJ8147-47-67 09:38:008.9 [facility] COADTVUANE6455-28-45 09:38:0026.3MH QyldiqutsDLQZUNLLPM1558-21-50 09:38:0059.6M IqvunzeslMEVLUYZRYY0332-28-68 09:38:003.3MH ZmnchddqrBLYKDKZBRQ3226-82-87 09:38:000.8MH CjkqfleyyJZYILFVUDN6251-19-55 09:38:004.4 SoutheastCHEM PANEL 2017-04-29 16:58:000.95MH [facility]CHEM GSIFD6534-90-45 16:58:0015MH [facility] CHE[facility] XFPYR7738-32-95 16:58:0096 [facility]CHE[facility] CYZMX8421-71-97 16:58:008.7 [facility]CHE[facility] ECVUB8180-44-74 16:58:0030 [facility] TBNKC7844-86-18 16:58:54763LB SoutheastCHEM FUTTH2091-59-23 16:58:003.7 SoutheastCHEM PANEL 2017-04-29 16:58:17717DQ [facility]CHEM HXLDY5372-97-58 16:58:0085MH [facility] CHE[facility] ONFLW9691-30-90 16:58:0010.7 ObjdvkoayEWOYJKTVZV5554-54-11 16:58:0025.1M PyemmwkoePTNMRIUZTI2610-06-84 16:58:0064.2M MrdsmciyaLHUCWHKMPB3483-56-03 16:58:007.0 FwmxarmtcPMCJASJDQG5985-80-62 16:58:000.9 [facility]MAT[facility] 2017-04-29 16:58:003.9 RohnajaajUGRTGVAINX8687-28-93 16:58:002.8 [facility] TSEYWJUDPK4790-38-92 16:58:001.5 LieowxzquEDAGBPNMGI2942-08-37 16:58:000.2MH VimmvjwjbWDGIZVPMNN3276-07-14 16:58:000.1MH PvzhrewvqAZCBZSVAZR1562-82-55 16:58:000.4 CtjkqgxdtQLEWYLBOHK6194-21-11 16:58:97783QQ [facility]HEMATOLOGY 2017-04-29 16:58:0015.7 HttcwnftxGBDWWQXIAB3376-14-02 16:58:006.9 [facility] VIYBBZAQKA8728-93-45 16:58:0032.7 KaizckrobEJIRWLHLID2418-68-95 16:58:004.34 NdljeizfwCSGHNSUHOS5980-03-16 16:58:006.0 EvyvqzjvuTGUMCKHORY4683-15-40 16:58:0039.6M NudjaddfkGPOXRLSDLN1795-22-39 16:58:0091.3M [facility]HEMATOLOGY 2017-04-29 16:58:00* Test Item Value Reference Range Interpretation Comments MCH (test code = MCH) 29.8 pg 27.0-31.0 TnlqqzmfbRKCNTAYKUX2328-42-57 16:58:0013.0 MvawpqtipYJOEXX6556-83-97 16:58:0029[facility] HospitalFqedzndykPBYVLF3969-22-84 16:58:0096[facility] HospitalLoxpeaktcVPCKEJ3580-74-72 16:58:86312VUWorcester County HospitalCfacjqkqdLAYMEW7617-13-40 16:58:02867IGWorcester County HospitalMcxgkaoguNZBVZZ5745-79-46 16:58:0059[facility] HospitalRzhoghqeiVKYPRQ8347-19-35 16:58:003.12[facility] 16:06:00Surgical Pathology Report Case: [id number] Authorizing Provider: Aaron Mccullough Collected: 02/22/2017 1637 Ordering Location: [address] Received: 02/24/2017 0912 Service Pathologist: Lela Saravia MD Specimen: Biopsy, Esophagus LOWER ESOPHAGUS, ENDOSCOPIC BIOPSY - SQUAMOUS MUCOSA WITH MILD EDEMA - NO FEATURES OF REFLUX OR EOSINOPHILIC ESOPHAGITIS SEEN - NO COLUMNAR MUCOSA PRESENT - NO DYSPLASIA OR MALIGNANCY SEENThe case was presented at the departmental consensus conference on 02/26/17 Signing Pathologist Direct Phone Line: [phone] signed by Lela Saravia MD on 02/26/2017 at 4:06 [id number] biopsyReceived in formalin labeled "biopsy, esophagus" are four fragments measuring 0.9 x 0.8 x 0.1 cm in aggregate. Entirely submitted A1. DB/plPERFORMEDCOMPREHENSIVE METABOLIC [id number] 06:01:00* Test Item Value Reference Range Interpretation Comments TOTAL PROTEIN (BEAKER) (test code = 770) 6.8 gm/dL 6.0-8.3 ALBUMIN (BEAKER) (test code = 1145) 3.4 g/dL 3.5-5.0 L ALKALINE PHOSPHATASE (BEAKER) (test code = 346) 87 U/L 40-150 BILIRUBIN TOTAL (BEAKER) (test code = 377) 0.8 mg/dL 0.2-1.2 SODIUM (BEAKER) (test code = 381) 141 meq/L 136-145 POTASSIUM (BEAKER) (test code = 379) 3.9 meq/L 3.5-5.1 CHLORIDE (BEAKER) (test code = 382) 108 meq/L 98-107 H CO2 (BEAKER) (test code = 355) 23 meq/L 22-29 BLOOD UREA NITROGEN (BEAKER) (test code = 354) 19 mg/dL 7-21 CREATININE (BEAKER) (test code = 358) 0.94 mg/dL 0.57-1.25 GLUCOSE RANDOM (BEAKER) (test code = 652) 83 mg/dL 70-105 CALCIUM (BEAKER) (test code = 697) 8.7 mg/dL 8.4-10.2 AST (SGOT) (BEAKER) (test code = 353) 18 U/L 5-34 ALT (SGPT) (BEAKER) (test code = 347) 12 U/L 6-55 EGFR (BEAKER) (test code = 1092) 81 mL/min/1.73 sq m ESTIMATED GFR IS NOT ACCURATE CREATININE CLEARANCE IN PREDICTING GLOMERULAR FILTRATION RATE. ESTIMATED GFR IS NOT APPLICABLE FOR DIALYSIS PATIENTS. CBC W/PLT COUNT & AUTO CBHQUOITKEVS2393-39-56 05:28:00* Test Item Value Reference Range Interpretation Comments WHITE BLOOD CELL COUNT (BEAKER) (test code = 775) 5.7 K/ L 3.5- 10.5 RED BLOOD CELL COUNT (BEAKER) (test code = 761) 3.17 M/ L 4.63-6 .08 L HEMOGLOBIN (BEAKER) (test code = 410) 9.5 GM/DL 13.7-17.5 L HEMATOCRIT (BEAKER) (test code = 411) 30.3 % 40.1-51.0 L MEAN CORPUSCULAR VOLUME (BEAKER) (test code = 753) 95.6 fL 79. 0-92.2 H MEAN CORPUSCULAR HEMOGLOBIN (BEAKER) (test code = 751) 30.0 pg 25.7-32.2 MEAN CORPUSCULAR HEMOGLOBIN CONC (BEAKER) (test code = 752) 31.4 GM/DL 32.3-36.5 L RED CELL DISTRIBUTION WIDTH (BEAKER) (test code = 412) 15.6 % 11.6-14.4 H PLATELET COUNT (BEAKER) (test code = 756) 166 K/CU MM 150-450 MEAN PLATELET VOLUME (BEAKER) (test code = 754) 9.0 fL 9.4-12 .4 L NUCLEATED RED BLOOD CELLS (BEAKER) (test code = 413) 0 /100 WBC 0 -0 NEUTROPHILS RELATIVE PERCENT (BEAKER) (test code = 429) 65 % LYMPHOCYTES RELATIVE PERCENT (BEAKER) (test code = 430) 21 % MONOCYTES RELATIVE PERCENT (BEAKER) (test code = 431) 10 % EOSINOPHILS RELATIVE PERCENT (BEAKER) (test code = 432) 3 % BASOPHILS RELATIVE PERCENT (BEAKER) (test code = 437) 1 % NEUTROPHILS ABSOLUTE COUNT (BEAKER) (test code = 670) 3.70 K/ L 1.78-5.38 LYMPHOCYTES ABSOLUTE COUNT (BEAKER) (test code = 414) 1.21 K/ L 1.32-3.57 L MONOCYTES ABSOLUTE COUNT (BEAKER) (test code = 415) 0.58 K/ L 0. 30-0.82 EOSINOPHILS ABSOLUTE COUNT (BEAKER) (test code = 416) 0.16 K/ L 0.04-0.54 BASOPHILS ABSOLUTE COUNT (BEAKER) (test code = 417) 0.04 K/ L 0. 01-0.08 IMMATURE GRANULOCYTES-RELATIVE PERCENT (BEAKER) (test code = 2801) 0 % 0-1 XXRUTRWTVV3623-51-50 06:49:00* Test Item Value Reference Range Interpretation Comments PHOSPHORUS (BEAKER) (test code = 604) 4.0 mg/dL 2.3-4.7 HWGOOUSUX6536-00-18 06:49:00* Test Item Value Reference Range Interpretation Comments MAGNESIUM (BEAKER) (test code = 627) 1.9 mg/dL 1.6-2.6 COMPREHENSIVE METABOLIC [id number] 06:49:00* Test Item Value Reference Range Interpretation Comments TOTAL PROTEIN (BEAKER) (test code = 770) 7.2 gm/dL 6.0-8.3 ALBUMIN (BEAKER) (test code = 1145) 3.6 g/dL 3.5-5.0 ALKALINE PHOSPHATASE (BEAKER) (test code = 346) 89 U/L 40-150 BILIRUBIN TOTAL (BEAKER) (test code = 377) 1.1 mg/dL 0.2-1.2 SODIUM (BEAKER) (test code = 381) 139 meq/L 136-145 POTASSIUM (BEAKER) (test code = 379) 3.8 meq/L 3.5-5.1 CHLORIDE (BEAKER) (test code = 382) 106 meq/L 98-107 CO2 (BEAKER) (test code = 355) 24 meq/L 22-29 BLOOD UREA NITROGEN (BEAKER) (test code = 354) 24 mg/dL 7-21 H CREATININE (BEAKER) (test code = 358) 1.15 mg/dL 0.57-1.25 GLUCOSE RANDOM (BEAKER) (test code = 652) 88 mg/dL 70-105 CALCIUM (BEAKER) (test code = 697) 8.8 mg/dL 8.4-10.2 AST (SGOT) (BEAKER) (test code = 353) 19 U/L 5-34 ALT (SGPT) (BEAKER) (test code = 347) 15 U/L 6-55 EGFR (BEAKER) (test code = 1092) 64 mL/min/1.73 sq m ESTIMATED GFR IS NOT ACCURATE CREATININE CLEARANCE IN PREDICTING GLOMERULAR FILTRATION RATE. ESTIMATED GFR IS NOT APPLICABLE FOR DIALYSIS PATIENTS. CBC W/PLT COUNT & AUTO [id number] 05:59:00* Test Item Value Reference Range Interpretation Comments WHITE BLOOD CELL COUNT (BEAKER) (test code = 775) 5.1 K/ L 3.5- 10.5 RED BLOOD CELL COUNT (BEAKER) (test code = 761) 3.28 M/ L 4.63-6 .08 L HEMOGLOBIN (BEAKER) (test code = 410) 9.9 GM/DL 13.7-17.5 L HEMATOCRIT (BEAKER) (test code = 411) 31.9 % 40.1-51.0 L MEAN CORPUSCULAR VOLUME (BEAKER) (test code = 753) 97.3 fL 79. 0-92.2 H MEAN CORPUSCULAR HEMOGLOBIN (BEAKER) (test code = 751) 30.2 pg 25.7-32.2 MEAN CORPUSCULAR HEMOGLOBIN CONC (BEAKER) (test code = 752) 31.0 GM/DL 32.3-36.5 L RED CELL DISTRIBUTION WIDTH (BEAKER) (test code = 412) 15.9 % 11.6-14.4 H PLATELET COUNT (BEAKER) (test code = 756) 164 K/CU MM 150-450 MEAN PLATELET VOLUME (BEAKER) (test code = 754) 9.1 fL 9.4-12 .4 L NUCLEATED RED BLOOD CELLS (BEAKER) (test code = 413) 0 /100 WBC 0 -0 NEUTROPHILS RELATIVE PERCENT (BEAKER) (test code = 429) 59 % LYMPHOCYTES RELATIVE PERCENT (BEAKER) (test code = 430) 25 % MONOCYTES RELATIVE PERCENT (BEAKER) (test code = 431) 11 % EOSINOPHILS RELATIVE PERCENT (BEAKER) (test code = 432) 4 % BASOPHILS RELATIVE PERCENT (BEAKER) (test code = 437) 1 % NEUTROPHILS ABSOLUTE COUNT (BEAKER) (test code = 670) 3.03 K/ L 1.78-5.38 LYMPHOCYTES ABSOLUTE COUNT (BEAKER) (test code = 414) 1.28 K/ L 1.32-3.57 L MONOCYTES ABSOLUTE COUNT (BEAKER) (test code = 415) 0.57 K/ L 0. 30-0.82 EOSINOPHILS ABSOLUTE COUNT (BEAKER) (test code = 416) 0.19 K/ L 0.04-0.54 BASOPHILS ABSOLUTE COUNT (BEAKER) (test code = 417) 0.04 K/ L 0. 01-0.08 IMMATURE GRANULOCYTES-RELATIVE PERCENT (BEAKER) (test code = 2801) 0 % 0-1 PT/[id number] 03:59:00* Test Item Value Reference Range Interpretation Comments PROTIME (BEAKER) (test code = 759) 15.1 seconds 11.7-14.7 H INR (BEAKER) (test code = 370) 1.2 <=5.9 PARTIAL THROMBOPLASTIN TIME (BEAKER) (test code = 760) 28.6 seconds 22.5-36.0 RECOMMENDED COUMADIN/WARFARIN INR THERAPY RANGESSTANDARD DOSE: 2.0 - 3.0 Inclu prabhakar: PROPHYLAXIS for venous thrombosis, systemic embolization; TREATMENT for marian ous thrombosis and/or pulmonary embolus.HIGH RISK: Target INR is 2.5-3.5 for pat ients with mechanical heart valves.[id number] 03:54:00* Test Item Value Reference Range Interpretation Comments LIPASE (BEAKER) (test code = 749) 38 U/L 8-78 [id number] 03:54:00* Test Item Value Reference Range Interpretation Comments AMYLASE (BEAKER) (test code = 349) 68 U/L 25-125 COMPREHENSIVE METABOLIC [id number] 03:54:00* Test Item Value Reference Range Interpretation Comments TOTAL PROTEIN (BEAKER) (test code = 770) 7.9 gm/dL 6.0-8.3 ALBUMIN (BEAKER) (test code = 1145) 3.9 g/dL 3.5-5.0 ALKALINE PHOSPHATASE (BEAKER) (test code = 346) 106 U/L 40-150 BILIRUBIN TOTAL (BEAKER) (test code = 377) 0.9 mg/dL 0.2-1.2 SODIUM (BEAKER) (test code = 381) 142 meq/L 136-145 POTASSIUM (BEAKER) (test code = 379) 3.9 meq/L 3.5-5.1 CHLORIDE (BEAKER) (test code = 382) 105 meq/L 98-107 CO2 (BEAKER) (test code = 355) 25 meq/L 22-29 BLOOD UREA NITROGEN (BEAKER) (test code = 354) 20 mg/dL 7-21 CREATININE (BEAKER) (test code = 358) 1.05 mg/dL 0.57-1.25 GLUCOSE RANDOM (BEAKER) (test code = 652) 103 mg/dL 70-105 CALCIUM (BEAKER) (test code = 697) 9.6 mg/dL 8.4-10.2 AST (SGOT) (BEAKER) (test code = 353) 22 U/L 5-34 ALT (SGPT) (BEAKER) (test code = 347) 19 U/L 6-55 EGFR (BEAKER) (test code = 1092) 71 mL/min/1.73 sq m ESTIMATED GFR IS NOT ACCURATE CREATININE CLEARANCE IN PREDICTING GLOMERULAR FILTRATION RATE. ESTIMATED GFR IS NOT APPLICABLE FOR DIALYSIS PATIENTS. HEPATIC FUNCTION [id number] 03:54:00* Test Item Value Reference Range Interpretation Comments TOTAL PROTEIN (BEAKER) (test code = 770) 7.9 gm/dL 6.0-8.3 ALBUMIN (BEAKER) (test code = 1145) 3.9 g/dL 3.5-5.0 BILIRUBIN TOTAL (BEAKER) (test code = 377) 0.9 mg/dL 0.2-1.2 BILIRUBIN DIRECT (BEAKER) (test code = 706) 0.4 mg/dL 0.1-0.5 ALKALINE PHOSPHATASE (BEAKER) (test code = 346) 106 U/L 40-150 AST (SGOT) (BEAKER) (test code = 353) 22 U/L 5-34 ALT (SGPT) (BEAKER) (test code = 347) 19 U/L 6-55 CBC W/PLT COUNT & AUTO [id number] 03:41:00* Test Item Value Reference Range Interpretation Comments WHITE BLOOD CELL COUNT (BEAKER) (test code = 775) 6.7 K/ L 3.5- 10.5 RED BLOOD CELL COUNT (BEAKER) (test code = 761) 3.69 M/ L 4.63-6 .08 L HEMOGLOBIN (BEAKER) (test code = 410) 10.9 GM/DL 13.7-17.5 L HEMATOCRIT (BEAKER) (test code = 411) 35.2 % 40.1-51.0 L MEAN CORPUSCULAR VOLUME (BEAKER) (test code = 753) 95.4 fL 79. 0-92.2 H MEAN CORPUSCULAR HEMOGLOBIN (BEAKER) (test code = 751) 29.5 pg 25.7-32.2 MEAN CORPUSCULAR HEMOGLOBIN CONC (BEAKER) (test code = 752) 31.0 GM/DL 32.3-36.5 L RED CELL DISTRIBUTION WIDTH (BEAKER) (test code = 412) 15.7 % 11.6-14.4 H PLATELET COUNT (BEAKER) (test code = 756) 188 K/CU MM 150-450 MEAN PLATELET VOLUME (BEAKER) (test code = 754) 8.8 fL 9.4-12 .4 L NUCLEATED RED BLOOD CELLS (BEAKER) (test code = 413) 0 /100 WBC 0 -0 NEUTROPHILS RELATIVE PERCENT (BEAKER) (test code = 429) 66 % LYMPHOCYTES RELATIVE PERCENT (BEAKER) (test code = 430) 22 % MONOCYTES RELATIVE PERCENT (BEAKER) (test code = 431) 10 % EOSINOPHILS RELATIVE PERCENT (BEAKER) (test code = 432) 1 % BASOPHILS RELATIVE PERCENT (BEAKER) (test code = 437) 1 % NEUTROPHILS ABSOLUTE COUNT (BEAKER) (test code = 670) 4.41 K/ L 1.78-5.38 LYMPHOCYTES ABSOLUTE COUNT (BEAKER) (test code = 414) 1.43 K/ L 1.32-3.57 MONOCYTES ABSOLUTE COUNT (BEAKER) (test code = 415) 0.66 K/ L 0. 30-0.82 EOSINOPHILS ABSOLUTE COUNT (BEAKER) (test code = 416) 0.09 K/ L 0.04-0.54 BASOPHILS ABSOLUTE COUNT (BEAKER) (test code = 417) 0.04 K/ L 0. 01-0.08 IMMATURE GRANULOCYTES-RELATIVE PERCENT (BEAKER) (test code = 2801) 0 % 0-1 HEMOGLOBIN AND [id number] 11:59:00* Test Item Value Reference Range Interpretation Comments HEMOGLOBIN (BEAKER) (test code = 410) 10.0 GM/DL 13.7-17.5 L HEMATOCRIT (BEAKER) (test code = 411) 31.5 % 40.1-51.0 L TISSUE [id number] 11:34:00Surgical Pathology Report Case: [id number] Authorizing Provider: Leeanna Ma MD Collected: 02/03/2017 1350 Ordering Location: [address] Received: 02/03/2017 1261 Pathologist: Lela Saravia MD Specimens: A) - Antrum, bx r/o h pylori evaluate atrophic gastritis B) - Gastric, BX R/O H PYLORI EVALUATE ATROPHIC GASTRITIS This addendum is issued to report the result of immunohistochemical stain for Helicobacter pylori on specimen A: - NegativeCPT code: [id number] electronically signed by Lela Saravia MD on [...] STAIN - NEGATIVE FOR DYSPLASIA OR MALIGNANCY 10472 X 2; 47775 X 2Melena, rule out H. Pylori, rule [...] the diagnostic report above:WARTHIN-STARRY X 2HEMOGLOBIN AND [id number] 04:18:00* Test Item Value Reference Range Interpretation Comments HEMOGLOBIN (BEAKER) (test code = 410) 8.2 GM/DL 13.7-17.5 L HEMATOCRIT (BEAKER) (test code = 411) 26.0 % 40.1-51.0 L CBC (HEMOGRAM ONLY)2017-02-05 04:18:00* Test Item Value Reference Range Interpretation Comments WHITE BLOOD CELL COUNT (BEAKER) (test code = 775) 5.3 K/ L 3.5- 10.5 RED BLOOD CELL COUNT (BEAKER) (test code = 761) 2.72 M/ L 4.63-6 .08 L HEMOGLOBIN (BEAKER) (test code = 410) 8.2 GM/DL 13.7-17.5 L HEMATOCRIT (BEAKER) (test code = 411) 26.0 % 40.1-51.0 L MEAN CORPUSCULAR VOLUME (BEAKER) (test code = 753) 95.6 fL 79. 0-92.2 H MEAN CORPUSCULAR HEMOGLOBIN (BEAKER) (test code = 751) 30.1 pg 25.7-32.2 MEAN CORPUSCULAR HEMOGLOBIN CONC (BEAKER) (test code = 752) 31.5 GM/DL 32.3-36.5 L RED CELL DISTRIBUTION WIDTH (BEAKER) (test code = 412) 15.3 % 11.6-14.4 H PLATELET COUNT (BEAKER) (test code = 756) 124 K/CU MM 150-450 L MEAN PLATELET VOLUME (BEAKER) (test code = 754) 9.6 fL 9.4-12 .4 NUCLEATED RED BLOOD CELLS (BEAKER) (test code = 413) 0 /100 WBC 0 -0 HEMOGLOBIN AND [id number] 21:26:00* Test Item Value Reference Range Interpretation Comments HEMOGLOBIN (BEAKER) (test code = 410) 7.7 GM/DL 13.7-17.5 L HEMATOCRIT (BEAKER) (test code = 411) 24.6 % 40.1-51.0 L [id number] 19:21:00* Test Item Value Reference Range Interpretation Comments FERRITIN (BEAKER) (test code = 361) 36 ng/mL 5-275 Effective 05/24/2014: Reference Range ChangeNew: Male 5-275 Previous: Male 22-322 Female 5-275 Female 10-291 IRON, TIBC, % SAT. (WITHOUT FERRITIN)2017-02-04 19:01:00* Test Item Value Reference Range Interpretation Comments IRON (BEAKER) (test code = 547) 12 ug/dL 40-160 L TOTAL IRON BINDING CAPACITY (BEAKER) (test code = 769) 158 ug/dL 250-450 L IRON % SATURATION (2) (BEAKER) (test code = 2590) 8 % 20-5 5 L HEMOGLOBIN AND [id number] 18:44:00* Test Item Value Reference Range Interpretation Comments HEMOGLOBIN (BEAKER) (test code = 410) 8.1 GM/DL 13.7-17.5 L HEMATOCRIT (BEAKER) (test code = 411) 25.3 % 40.1-51.0 L HEMOGLOBIN AND [id number] 10:09:00* Test Item Value Reference Range Interpretation Comments HEMOGLOBIN (BEAKER) (test code = 410) 8.3 GM/DL 13.7-17.5 L HEMATOCRIT (BEAKER) (test code = 411) 27.0 % 40.1-51.0 L BASIC METABOLIC [id number] 04:32:00* Test Item Value Reference Range Interpretation Comments SODIUM (BEAKER) (test code = 381) 140 meq/L 136-145 POTASSIUM (BEAKER) (test code = 379) 4.2 meq/L 3.5-5.1 CHLORIDE (BEAKER) (test code = 382) 112 meq/L 98-107 H CO2 (BEAKER) (test code = 355) 23 meq/L 22-29 BLOOD UREA NITROGEN (BEAKER) (test code = 354) 16 mg/dL 7-21 CREATININE (BEAKER) (test code = 358) 0.87 mg/dL 0.57-1.25 GLUCOSE RANDOM (BEAKER) (test code = 652) 87 mg/dL 70-105 CALCIUM (BEAKER) (test code = 697) 7.8 mg/dL 8.4-10.2 L EGFR (BEAKER) (test code = 1092) 89 mL/min/1.73 sq m ESTIMATED GFR IS NOT ACCURATE CREATININE CLEARANCE IN PREDICTING GLOMERULAR FILTRATION RATE. ESTIMATED GFR IS NOT APPLICABLE FOR DIALYSIS PATIENTS. [id number] 04:30:00* Test Item Value Reference Range Interpretation Comments PHOSPHORUS (BEAKER) (test code = 604) 2.8 mg/dL 2.3-4.7 [id number] 04:30:00* Test Item Value Reference Range Interpretation Comments MAGNESIUM (BEAKER) (test code = 627) 1.9 mg/dL 1.6-2.6 PT/[id number] 04:20:00* Test Item Value Reference Range Interpretation Comments PROTIME (BEAKER) (test code = 759) 16.1 seconds 11.7-14.7 H INR (BEAKER) (test code = 370) 1.3 <=5.9 PARTIAL THROMBOPLASTIN TIME (BEAKER) (test code = 760) 33.7 seconds 22.5-36.0 RECOMMENDED COUMADIN/WARFARIN INR THERAPY RANGESSTANDARD DOSE: 2.0 - 3.0 Inclu prabhakar: PROPHYLAXIS for venous thrombosis, systemic embolization; TREATMENT for marian ous thrombosis and/or pulmonary embolus.HIGH RISK: Target INR is 2.5-3.5 for pat ients with mechanical heart valves.PROTHROMBIN TIME/[id number] 04:19:00* Test Item Value Reference Range Interpretation Comments PROTIME (BEAKER) (test code = 759) 16.1 seconds 11.7-14.7 H INR (BEAKER) (test code = 370) 1.3 <=5.9 RECOMMENDED COUMADIN/WARFARIN INR THERAPY RANGESSTANDARD DOSE: 2.0 - 3.0 Inclu prabhakar: PROPHYLAXIS for venous thrombosis, systemic embolization; TREATMENT for marian ous thrombosis and/or pulmonary embolus.HIGH RISK: Target INR is 2.5-3.5 for pat ients with mechanical heart valves.CBC (HEMOGRAM ONLY)2017-02-04 04:10:00* Test Item Value Reference Range Interpretation Comments WHITE BLOOD CELL COUNT (BEAKER) (test code = 775) 7.6 K/ L 3.5- 10.5 RED BLOOD CELL COUNT (BEAKER) (test code = 761) 2.66 M/ L 4.63-6 .08 L HEMOGLOBIN (BEAKER) (test code = 410) 7.9 GM/DL 13.7-17.5 L HEMATOCRIT (BEAKER) (test code = 411) 25.5 % 40.1-51.0 L MEAN CORPUSCULAR VOLUME (BEAKER) (test code = 753) 95.9 fL 79. 0-92.2 H MEAN CORPUSCULAR HEMOGLOBIN (BEAKER) (test code = 751) 29.7 pg 25.7-32.2 MEAN CORPUSCULAR HEMOGLOBIN CONC (BEAKER) (test code = 752) 31.0 GM/DL 32.3-36.5 L RED CELL DISTRIBUTION WIDTH (BEAKER) (test code = 412) 15.7 % 11.6-14.4 H PLATELET COUNT (BEAKER) (test code = 756) 134 K/CU MM 150-450 L MEAN PLATELET VOLUME (BEAKER) (test code = 754) 9.3 fL 9.4-12 .4 L NUCLEATED RED BLOOD CELLS (BEAKER) (test code = 413) 0 /100 WBC 0 -0 HEMOGLOBIN AND [id number] 04:09:00* Test Item Value Reference Range Interpretation Comments HEMOGLOBIN (BEAKER) (test code = 410) 8.0 GM/DL 13.7-17.5 L HEMATOCRIT (BEAKER) (test code = 411) 25.2 % 40.1-51.0 L HEMOGLOBIN AND [id number] 20:58:00* Test Item Value Reference Range Interpretation Comments HEMOGLOBIN (BEAKER) (test code = 410) 8.0 GM/DL 13.7-17.5 L HEMATOCRIT (BEAKER) (test code = 411) 25.6 % 40.1-51.0 L HEMOGLOBIN AND [id number] 12:21:00* Test Item Value Reference Range Interpretation Comments HEMOGLOBIN (BEAKER) (test code = 410) 8.7 GM/DL 13.7-17.5 L HEMATOCRIT (BEAKER) (test code = 411) 27.6 % 40.1-51.0 L HEMOGLOBIN AND [id number] 05:58:00* Test Item Value Reference Range Interpretation Comments HEMOGLOBIN (BEAKER) (test code = 410) 8.3 GM/DL 13.7-17.5 L HEMATOCRIT (BEAKER) (test code = 411) 26.3 % 40.1-51.0 L [id number] 05:55:00* Test Item Value Reference Range Interpretation Comments PHOSPHORUS (BEAKER) (test code = 604) 2.8 mg/dL 2.3-4.7 [id number] 05:55:00* Test Item Value Reference Range Interpretation Comments MAGNESIUM (BEAKER) (test code = 627) 2.0 mg/dL 1.6-2.6 BASIC METABOLIC [id number] 05:55:00* Test Item Value Reference Range Interpretation Comments SODIUM (BEAKER) (test code = 381) 140 meq/L 136-145 POTASSIUM (BEAKER) (test code = 379) 4.1 meq/L 3.5-5.1 CHLORIDE (BEAKER) (test code = 382) 112 meq/L 98-107 H CO2 (BEAKER) (test code = 355) 22 meq/L 22-29 BLOOD UREA NITROGEN (BEAKER) (test code = 354) 19 mg/dL 7-21 CREATININE (BEAKER) (test code = 358) 0.86 mg/dL 0.57-1.25 GLUCOSE RANDOM (BEAKER) (test code = 652) 87 mg/dL 70-105 CALCIUM (BEAKER) (test code = 697) 8.0 mg/dL 8.4-10.2 L EGFR (BEAKER) (test code = 1092) 90 mL/min/1.73 sq m ESTIMATED GFR IS NOT ACCURATE CREATININE CLEARANCE IN PREDICTING GLOMERULAR FILTRATION RATE. ESTIMATED GFR IS NOT APPLICABLE FOR DIALYSIS PATIENTS. PT/[id number] 05:50:00* Test Item Value Reference Range Interpretation Comments PROTIME (BEAKER) (test code = 759) 14.3 seconds 11.7-14.7 INR (BEAKER) (test code = 370) 1.1 <=5.9 PARTIAL THROMBOPLASTIN TIME (BEAKER) (test code = 760) 28.6 seconds 22.5-36.0 RECOMMENDED COUMADIN/WARFARIN INR THERAPY RANGESSTANDARD DOSE: 2.0 - 3.0 Inclu prabhakar: PROPHYLAXIS for venous thrombosis, systemic embolization; TREATMENT for marian ous thrombosis and/or pulmonary embolus.HIGH RISK: Target INR is 2.5-3.5 for pat ients with mechanical heart valves.HEMOGLOBIN AND [id number] 00:18:00 * Test Item Value Reference Range Interpretation Comments HEMOGLOBIN (BEAKER) (test code = 410) 8.2 GM/DL 13.7-17.5 L HEMATOCRIT (BEAKER) (test code = 411) 26.0 % 40.1-51.0 L HEMOGLOBIN AND [id number] 18:59:00* Test Item Value Reference Range Interpretation Comments HEMOGLOBIN (BEAKER) (test code = 410) 8.9 GM/DL 13.7-17.5 L HEMATOCRIT (BEAKER) (test code = 411) 28.1 % 40.1-51.0 L HEMOGLOBIN AND [id number] 13:15:00* Test Item Value Reference Range Interpretation Comments HEMOGLOBIN (BEAKER) (test code = 410) 8.9 GM/DL 13.7-17.5 L HEMATOCRIT (BEAKER) (test code = 411) 28.2 % 40.1-51.0 L CBC (HEMOGRAM ONLY)2017-02-02 07:05:00* Test Item Value Reference Range Interpretation Comments WHITE BLOOD CELL COUNT (BEAKER) (test code = 775) 5.9 K/ L 3.5- 10.5 RED BLOOD CELL COUNT (BEAKER) (test code = 761) 2.70 M/ L 4.63-6 .08 L HEMOGLOBIN (BEAKER) (test code = 410) 8.1 GM/DL 13.7-17.5 L HEMATOCRIT (BEAKER) (test code = 411) 25.2 % 40.1-51.0 L MEAN CORPUSCULAR VOLUME (BEAKER) (test code = 753) 93.3 fL 79. 0-92.2 H MEAN CORPUSCULAR HEMOGLOBIN (BEAKER) (test code = 751) 30.0 pg 25.7-32.2 MEAN CORPUSCULAR HEMOGLOBIN CONC (BEAKER) (test code = 752) 32.1 GM/DL 32.3-36.5 L RED CELL DISTRIBUTION WIDTH (BEAKER) (test code = 412) 15.4 % 11.6-14.4 H PLATELET COUNT (BEAKER) (test code = 756) 124 K/CU MM 150-450 L MEAN PLATELET VOLUME (BEAKER) (test code = 754) 9.4 fL 9.4-12 .4 NUCLEATED RED BLOOD CELLS (BEAKER) (test code = 413) 0 /100 WBC 0 -0 [id number] 06:41:00* Test Item Value Reference Range Interpretation Comments PHOSPHORUS (BEAKER) (test code = 604) 2.9 mg/dL 2.3-4.7 [id number] 06:41:00* Test Item Value Reference Range Interpretation Comments MAGNESIUM (BEAKER) (test code = 627) 2.3 mg/dL 1.6-2.6 BASIC METABOLIC [id number] 06:41:00* Test Item Value Reference Range Interpretation Comments SODIUM (BEAKER) (test code = 381) 140 meq/L 136-145 POTASSIUM (BEAKER) (test code = 379) 4.0 meq/L 3.5-5.1 CHLORIDE (BEAKER) (test code = 382) 110 meq/L 98-107 H CO2 (BEAKER) (test code = 355) 23 meq/L 22-29 BLOOD UREA NITROGEN (BEAKER) (test code = 354) 25 mg/dL 7-21 H CREATININE (BEAKER) (test code = 358) 0.97 mg/dL 0.57-1.25 GLUCOSE RANDOM (BEAKER) (test code = 652) 88 mg/dL 70-105 CALCIUM (BEAKER) (test code = 697) 8.1 mg/dL 8.4-10.2 L EGFR (BEAKER) (test code = 1092) 78 mL/min/1.73 sq m ESTIMATED GFR IS NOT ACCURATE CREATININE CLEARANCE IN PREDICTING GLOMERULAR FILTRATION RATE. ESTIMATED GFR IS NOT APPLICABLE FOR DIALYSIS PATIENTS. HEMOGLOBIN AND [id number] 06:09:00* Test Item Value Reference Range Interpretation Comments HEMOGLOBIN (BEAKER) (test code = 410) 8.1 GM/DL 13.7-17.5 L HEMATOCRIT (BEAKER) (test code = 411) 25.3 % 40.1-51.0 L PROTHROMBIN TIME/[id number] 06:07:00* Test Item Value Reference Range Interpretation Comments PROTIME (BEAKER) (test code = 759) 13.9 seconds 11.7-14.7 INR (BEAKER) (test code = 370) 1.1 <=5.9 RECOMMENDED COUMADIN/WARFARIN INR THERAPY RANGESSTANDARD DOSE: 2.0 - 3.0 Inclu prabhakar: PROPHYLAXIS for venous thrombosis, systemic embolization; TREATMENT for marian ous thrombosis and/or pulmonary embolus.HIGH RISK: Target INR is 2.5-3.5 for pat ients with mechanical heart valves.PT/[id number] 06:07:00* Test Item Value Reference Range Interpretation Comments PROTIME (BEAKER) (test code = 759) 13.9 seconds 11.7-14.7 INR (BEAKER) (test code = 370) 1.1 <=5.9 PARTIAL THROMBOPLASTIN TIME (BEAKER) (test code = 760) 28.6 seconds 22.5-36.0 RECOMMENDED COUMADIN/WARFARIN INR THERAPY RANGESSTANDARD DOSE: 2.0 - 3.0 Inclu prabhakar: PROPHYLAXIS for venous thrombosis, systemic embolization; TREATMENT for marian ous thrombosis and/or pulmonary embolus.HIGH RISK: Target INR is 2.5-3.5 for pat ients with mechanical heart valves.[id number] 00:56:00* Test Item Value Reference Range Interpretation Comments PARTIAL THROMBOPLASTIN TIME (BEAKER) (test code = 760) 28.2 seconds 22.5-36.0 PROTHROMBIN TIME/[id number] 00:55:00* Test Item Value Reference Range Interpretation Comments PROTIME (BEAKER) (test code = 759) 14.3 seconds 11.7-14.7 INR (BEAKER) (test code = 370) 1.1 <=5.9 RECOMMENDED COUMADIN/WARFARIN INR THERAPY RANGESSTANDARD DOSE: 2.0 - 3.0 Inclu prabhakar: PROPHYLAXIS for venous thrombosis, systemic embolization; TREATMENT for marian ous thrombosis and/or pulmonary embolus.HIGH RISK: Target INR is 2.5-3.5 for pat ients with mechanical heart valves.[id number] 00:54:00* Test Item Value Reference Range Interpretation Comments PHOSPHORUS (BEAKER) (test code = 604) 3.6 mg/dL 2.3-4.7 [id number] 00:54:00* Test Item Value Reference Range Interpretation Comments MAGNESIUM (BEAKER) (test code = 627) 2.3 mg/dL 1.6-2.6 BASIC METABOLIC [id number] 00:54:00* Test Item Value Reference Range Interpretation Comments SODIUM (BEAKER) (test code = 381) 140 meq/L 136-145 POTASSIUM (BEAKER) (test code = 379) 4.7 meq/L 3.5-5.1 CHLORIDE (BEAKER) (test code = 382) 110 meq/L 98-107 H CO2 (BEAKER) (test code = 355) 23 meq/L 22-29 BLOOD UREA NITROGEN (BEAKER) (test code = 354) 30 mg/dL 7-21 H CREATININE (BEAKER) (test code = 358) 1.09 mg/dL 0.57-1.25 GLUCOSE RANDOM (BEAKER) (test code = 652) 88 mg/dL 70-105 CALCIUM (BEAKER) (test code = 697) 8.1 mg/dL 8.4-10.2 L EGFR (BEAKER) (test code = 1092) 68 mL/min/1.73 sq m ESTIMATED GFR IS NOT ACCURATE CREATININE CLEARANCE IN PREDICTING GLOMERULAR FILTRATION RATE. ESTIMATED GFR IS NOT APPLICABLE FOR DIALYSIS PATIENTS. HEMOGLOBIN AND [id number] 00:34:00* Test Item Value Reference Range Interpretation Comments HEMOGLOBIN (BEAKER) (test code = 410) 7.5 GM/DL 13.7-17.5 L HEMATOCRIT (BEAKER) (test code = 411) 23.7 % 40.1-51.0 L CBC (HEMOGRAM ONLY)2017-02-02 00:34:00* Test Item Value Reference Range Interpretation Comments WHITE BLOOD CELL COUNT (BEAKER) (test code = 775) 5.8 K/ L 3.5- 10.5 RED BLOOD CELL COUNT (BEAKER) (test code = 761) 2.51 M/ L 4.63-6 .08 L HEMOGLOBIN (BEAKER) (test code = 410) 7.5 GM/DL 13.7-17.5 L HEMATOCRIT (BEAKER) (test code = 411) 23.7 % 40.1-51.0 L MEAN CORPUSCULAR VOLUME (BEAKER) (test code = 753) 94.4 fL 79. 0-92.2 H MEAN CORPUSCULAR HEMOGLOBIN (BEAKER) (test code = 751) 29.9 pg 25.7-32.2 MEAN CORPUSCULAR HEMOGLOBIN CONC (BEAKER) (test code = 752) 31.6 GM/DL 32.3-36.5 L RED CELL DISTRIBUTION WIDTH (BEAKER) (test code = 412) 15.4 % 11.6-14.4 H PLATELET COUNT (BEAKER) (test code = 756) 113 K/CU MM 150-450 L MEAN PLATELET VOLUME (BEAKER) (test code = 754) 9.2 fL 9.4-12 .4 L NUCLEATED RED BLOOD CELLS (BEAKER) (test code = 413) 0 /100 WBC 0 -0 CBC W/PLT COUNT & AUTO [id number] 00:34:00* Test Item Value Reference Range Interpretation Comments WHITE BLOOD CELL COUNT (BEAKER) (test code = 775) 5.8 K/ L 3.5- 10.5 RED BLOOD CELL COUNT (BEAKER) (test code = 761) 2.51 M/ L 4.63-6 .08 L HEMOGLOBIN (BEAKER) (test code = 410) 7.5 GM/DL 13.7-17.5 L HEMATOCRIT (BEAKER) (test code = 411) 23.7 % 40.1-51.0 L MEAN CORPUSCULAR VOLUME (BEAKER) (test code = 753) 94.4 fL 79. 0-92.2 H MEAN CORPUSCULAR HEMOGLOBIN (BEAKER) (test code = 751) 29.9 pg 25.7-32.2 MEAN CORPUSCULAR HEMOGLOBIN CONC (BEAKER) (test code = 752) 31.6 GM/DL 32.3-36.5 L RED CELL DISTRIBUTION WIDTH (BEAKER) (test code = 412) 15.4 % 11.6-14.4 H PLATELET COUNT (BEAKER) (test code = 756) 113 K/CU MM 150-450 L MEAN PLATELET VOLUME (BEAKER) (test code = 754) 9.2 fL 9.4-12 .4 L NUCLEATED RED BLOOD CELLS (BEAKER) (test code = 413) 0 /100 WBC 0 -0 NEUTROPHILS RELATIVE PERCENT (BEAKER) (test code = 429) 64 % LYMPHOCYTES RELATIVE PERCENT (BEAKER) (test code = 430) 26 % MONOCYTES RELATIVE PERCENT (BEAKER) (test code = 431) 7 % EOSINOPHILS RELATIVE PERCENT (BEAKER) (test code = 432) 3 % BASOPHILS RELATIVE PERCENT (BEAKER) (test code = 437) 0 % NEUTROPHILS ABSOLUTE COUNT (BEAKER) (test code = 670) 3.68 K/ L 1.78-5.38 LYMPHOCYTES ABSOLUTE COUNT (BEAKER) (test code = 414) 1.47 K/ L 1.32-3.57 MONOCYTES ABSOLUTE COUNT (BEAKER) (test code = 415) 0.40 K/ L 0. 30-0.82 EOSINOPHILS ABSOLUTE COUNT (BEAKER) (test code = 416) 0.19 K/ L 0.04-0.54 BASOPHILS ABSOLUTE COUNT (BEAKER) (test code = 417) 0.02 K/ L 0. 01-0.08 IMMATURE GRANULOCYTES-RELATIVE PERCENT (BEAKER) (test code = 2801) 0 % 0-1 FOREARM RIGHT 2 VIEW [place] [address] Patient Name: TERESA WARD MR #: [id number] : 1955 Age/Sex: 61/M Req #: [id number] Adm Physician: Ordered by: BALDO OMNDRAGON MD Report #: [id number] Location: ER Room/Bed: Procedure: [id number] DX/FOREARM RIGHT 2 VIEW Exam Da te: 04/25/17 Exam Time: 185 REPORT STATUS: Sig yamil FOREARM RIGHT 2 [...] MD 29 Transcribed By: CADEN on 04/25/171929 PSYCHOLOGICAL AIDE Y TO: BALDO MONDRAGON MD LOWER LEG RIGHT [facility] [address], [place] [address] Patient Name: TERESA WARD MR #: [id number] : 1955 Age/Sex: 61/M Req #: [id number] Adm Physician: Ordered by: BALDO MONDRAGON MD Report #: [id number] Location: ER Room/Bed: Procedure: [id number] DX/LOWER LEG RIGHT Exam Date: Exam Time: 1849 REPORT STATUS: Signed Right [...]
[2019-11-25] MEDS ORDERED: ASPIRIN 81 MG CHEW TAB PO ONE (11:15)
[2019-11-25 11:39] LABS: BASOPHILS % 0.5 % (0.0-1.0); EOSINOPHILS # (AUTO) 0.1 (0.0-0.4); EOSINOPHILS % 2.2 % (0.0-6.0); HEMATOCRIT 40.6 % (38.2-49.6); HEMOGLOBIN 13.1 g/dL (14.0-18.0); LYMPHOCYTES # (AUTO) 1.4 (1.0-3.2); LYMPHOCYTES % 23.4 % (18.0-39.1); MEAN CORPUSCULAR HEMOGLOBIN 30.8 pg (28-32); MEAN CORPUSCULAR HGB CONC 32.3 g/dL (31-35); MEAN CORPUSCULAR VOLUME 95.3 fL (81-99); MONOCYTES # (AUTO) 0.5 (0.2-0.8); MONOCYTES % 7.7 % (4.4-11.3); PLATELET COUNT 133 x10e3/uL (140-360); RED BLOOD COUNT 4.26 x10e6/uL (4.3-5.7); RED CELL DISTRIBUTION WIDTH 13.8 % (11.7-14.4)
--- NOTE | 2019-11-25 12:03 | Diagnostic Imaging Report ---
X-ray chest AP portable Comparison: None History: Rapid heart rate Findings: Central airways unremarkable. Possible cardiomegaly. Atherosclerotic aorta. Elevation of the left hemidiaphragm could represent subpulmonic effusion. No pneumothorax. No significant focal lung disease. Visualized skeletal structures grossly unremarkable. Upper abdomen not well-visualized. Impression: Relative elevation of the left hemidiaphragm as described above. Cardiomegaly. No significant focal lung disease visualized. Signed by: Tone Qiu MD on 11/25/2019 12:00 PM
[2019-11-25 12:18] LABS: ALBUMIN 3.8 g/dL (3.5-5.0); ALBUMIN/GLOBULIN RATIO 0.9 (0.8-2.0); ANION GAP 16.8 mmol/L (8-16); CALCIUM 9.6 mg/dL (8.4-10.2); CREATININE, SERUM 1.26 mg/dL (0.72-1.25); POTASSIUM 3.8 mmol/L (3.5-5.1)
[2019-11-25 12:24] LABS: CREATINE KINASE MB 2.1 ng/mL (0-5.0)
--- NOTE | 2019-11-25 14:08 | Emergency Department Note ---
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 states that pain is on the left side of his chest. Patient states that he took a baby aspirin for the pain. Patient states that he had a cardiac cath about 9 months ago. 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 Any updates have been documented here. Past Medical History Recent Fever: No Clinical Suspicion of Infectio: No New/Unexplained Change in Ment: No Past Medical History: Hypertension Other Medical History: GOUT PROSTATE ENLARGEMENT AAA GALLSTONES Other Surgery: MULTI AAA REPAIR BACK SURGERY Social History Smoking Cessation: Never Smoker Counseling Performed: No Alcohol Use: None Any Illegal Drug Use: No TB Exposure/Symptoms: No Physically hurt or threatened: No Other Last Tetanus: UTD Is patient up to date on immun: Yes Last Flu: UTD Last Pneumovax: UTD Review of Systems Review of Systems Constitutional: no symptoms EENTM: no symptoms Cardiovascular: chest pain Respiratory: no symptoms Gastrointestinal: no symptoms Genitourinary: no symptoms Musculoskeletal: no symptoms Neurological: no symptoms Psychological: no symptoms Endocrine: no symptoms Hematological/Lymphatic: no symptoms Review of other systems All other systems reviewed and negative. Physical Exam Related Data Allergies: Coded Allergies: nifedipine (Verified Allergy, Unknown, 02/01/17) Triage Vital Signs Vital Signs Date Time Temp Pulse Resp B/P (MAP) Pulse Ox O2 Delivery O2 Flow Rate FiO2 11/25/19 11:04 99.2 88 18 186/75 96 Vital signs reviewed: Yes Physical Exam CONSTITUTIONAL Constitutional: well-developed, well-nourished HENT HENT: normocephalic, atraumatic, oropharynx clear/moist, nose normal HENT L/R: left ext ear normal, right ext ear normal EYES Eyes: PERRL, conjunctivae normal NECK Neck: ROM normal PULMONARY Pulmonary: effort normal, breath sounds normal CARDIOVASCULAR Cardiovascular: regular rhythm, heart sounds normal, capillary refill normal, normal rate, other (c/o cp ) GASTROINTESTINAL Abdominal: soft, nontender, bowel sounds normal GENITOURINARY Genitourinary: exam deferred SKIN Skin: warm, dry MUSCULOSKELETAL Musculoskeletal: ROM normal NEUROLOGICAL Neurological: alert, oriented x 3, no gross motor or sensory deficits PSYCHOLOGICAL Psychological: mood/affect normal, judgement normal Results Laboratory Result Diagram: 11/25/19 1130 11/25/19 1130 Laboratory Laboratory Tests Test 11/25/19 11:30 White Blood Count 5.98 x10e3/uL (4.8-10.8) Red Blood Count 4.26 x10e6/uL (4.3-5.7) Hemoglobin 13.1 g/dL (14.0-18.0) Hematocrit 40.6 % (38.2-49.6) Mean Corpuscular Volume 95.3 fL (81-99) Mean Corpuscular Hemoglobin 30.8 pg (28-32) Mean Corpuscular Hemoglobin Concent 32.3 g/dL (31-35) Red Cell Distribution Width 13.8 % (11.7-14.4) Platelet Count 133 x10e3/uL (140-360) Neutrophils (%) (Auto) 66.0 % (38.7-80.0) Lymphocytes (%) (Auto) 23.4 % (18.0-39.1) Monocytes (%) (Auto) 7.7 % (4.4-11.3) Eosinophils (%) (Auto) 2.2 % (0.0-6.0) Basophils (%) (Auto) 0.5 % (0.0-1.0) Neutrophils # (Auto) 4.0 (2.1-6.9) Lymphocytes # (Auto) 1.4 (1.0-3.2) Monocytes # (Auto) 0.5 (0.2-0.8) Eosinophils # (Auto) 0.1 (0.0-0.4) Basophils # (Auto) 0.0 (0.0-0.1) Absolute Immature Granulocyte (auto 0.01 x10e3/uL (0-0.1) Sodium Level 142 mmol/L (136-145) Potassium Level 3.8 mmol/L (3.5-5.1) Chloride Level 102 mmol/L (98-107) Carbon Dioxide Level 27 mmol/L (22-29) Anion Gap 16.8 mmol/L (8-16) Blood Urea Nitrogen 21 mg/dL (7-26) Creatinine 1.26 mg/dL (0.72-1.25) Estimat Glomerular Filtration Rate 57 ML/MIN (60-) BUN/Creatinine Ratio 17 (6-25) Glucose Level 101 mg/dL (74-118) Calcium Level 9.6 mg/dL (8.4-10.2) Total Bilirubin 1.2 mg/dL (0.2-1.2) Aspartate Amino Transf (AST/SGOT) 33 IU/L (5-34) Alanine Aminotransferase (ALT/SGPT) 28 IU/L (0-55) Alkaline Phosphatase 107 IU/L (40-150) Creatine Kinase 454 IU/L (30-200) Creatine Kinase MB 2.10 ng/mL (0-5.0) Troponin I 0.023 ng/mL (0-0.300) B-Type Natriuretic Peptide 110.8 pg/mL (0-100) Total Protein 8.2 g/dL (6.5-8.1) Albumin 3.8 g/dL (3.5-5.0) Globulin 4.4 g/dL (2.3-3.5) Albumin/Globulin Ratio 0.9 (0.8-2.0) Laboratory Tests Test 11/25/19 11:30 White Blood Count 5.98 x10e3/uL (4.8-10.8) Red Blood Count 4.26 x10e6/uL (4.3-5.7) Hemoglobin 13.1 g/dL (14.0-18.0) Hematocrit 40.6 % (38.2-49.6) Mean Corpuscular Volume 95.3 fL (81-99) Mean Corpuscular Hemoglobin 30.8 pg (28-32) Mean Corpuscular Hemoglobin Concent 32.3 g/dL (31-35) Red Cell Distribution Width 13.8 % (11.7-14.4) Platelet Count 133 x10e3/uL (140-360) Neutrophils (%) (Auto) 66.0 % (38.7-80.0) Lymphocytes (%) (Auto) 23.4 % (18.0-39.1) Monocytes (%) (Auto) 7.7 % (4.4-11.3) Eosinophils (%) (Auto) 2.2 % (0.0-6.0) Basophils (%) (Auto) 0.5 % (0.0-1.0) Neutrophils # (Auto) 4.0 (2.1-6.9) Lymphocytes # (Auto) 1.4 (1.0-3.2) Monocytes # (Auto) 0.5 (0.2-0.8) Eosinophils # (Auto) 0.1 (0.0-0.4) Basophils # (Auto) 0.0 (0.0-0.1) Absolute Immature Granulocyte (auto 0.01 x10e3/uL (0-0.1) Sodium Level 142 mmol/L (136-145) Potassium Level 3.8 mmol/L (3.5-5.1) Chloride Level 102 mmol/L (98-107) Carbon Dioxide Level 27 mmol/L (22-29) Anion Gap 16.8 mmol/L (8-16) Blood Urea Nitrogen 21 mg/dL (7-26) Creatinine 1.26 mg/dL (0.72-1.25) Estimat Glomerular Filtration Rate 57 ML/MIN (60-) BUN/Creatinine Ratio 17 (6-25) Glucose Level 101 mg/dL (74-118) Calcium Level 9.6 mg/dL (8.4-10.2) Total Bilirubin 1.2 mg/dL (0.2-1.2) Aspartate Amino Transf (AST/SGOT) 33 IU/L (5-34) Alanine Aminotransferase (ALT/SGPT) 28 IU/L (0-55) Alkaline Phosphatase 107 IU/L (40-150) Creatine Kinase 454 IU/L (30-200) Creatine Kinase MB 2.10 ng/mL (0-5.0) Troponin I 0.023 ng/mL (0-0.300) B-Type Natriuretic Peptide 110.8 pg/mL (0-100) Total Protein 8.2 g/dL (6.5-8.1) Albumin 3.8 g/dL (3.5-5.0) Globulin 4.4 g/dL (2.3-3.5) Albumin/Globulin Ratio 0.9 (0.8-2.0) Lab results reviewed: Yes Imaging Impressions Procedure: [id number] DX/CHEST SINGLE (PORTABLE) Exam Date: 11/25/19 Exam Time: 1105 REPORT STATUS: Signed X-ray chest AP portable Comparison: None History: Rapid heart rate Findings: Central airways unremarkable. Possible cardiomegaly. Atherosclerotic aorta. Elevation of the left hemidiaphragm could represent subpulmonic effusion. No pneumothorax. No significant focal lung disease. Visualized skeletal structures grossly unremarkable. Upper abdomen not well-visualized. Impression: Relative elevation of the left hemidiaphragm as described above. Cardiomegaly. No significant focal lung disease visualized. 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 Assessment & Plan Reassessment Reassessment 64y m presented to ed c/o cp on set this am - lab ekg cxr ordered Assessment & Plan Final Impression: (1) Chest pain (2) Acute decompensated heart failure Assessment & Plan spoke w/ Dr Gil- pt will require a AICD cbc, cmp, cardiac marker Dr. Plaza evaluated pt in the ED, ADMITTED Depart Disposition: ADMITTED Last Vital Signs Date Time Temp Pulse Resp B/P (MAP) Pulse Ox O2 Delivery O2 Flow Rate FiO2 11/25/19 11:36 85 18 117/69 96 11/25/19 11:04 99.2 Home Meds Reported Medications Aspirin (ASPIR 81) 81 Mg Tablet.dr, 81 MG PO UD EVERY OTHER DAY 11/01/19 Allopurinol (ALLOPURINOL) 300 Mg Tablet, 300 MG PO DAILY, #30 TAB 11/01/19 Atorvastatin Calcium (LIPITOR) 20 Mg Tablet, 40 MG PO DAILY, TAB 11/01/19 Tamsulosin Hcl* (FLOMAX*) 0.4 Mg Cap, 0.4 MG PO DAILY, #30 CAP 11/01/19 Atenolol (ATENOLOL) 50 Mg Tablet, 50 MG PO DAILY 11/01/19 Hydrochlorothiazide (HYDROCHLOROTHIAZIDE) 12.5 Mg Tablet, 12.5 MG PO DAILY 11/01/19 Medications in the ED Aspirin 81 mg PRN ONCE PO ; Start 11/25/19 at 11:15; Stop 11/25/19 at 11:22; Status DC KORY CODY, November 25, 2019 14:07
[2019-11-25 15:21] LABS: BILIRUBIN,URINE NEGATIVE (NEGATIVE); CLARITY,URINE SL CLOUDY (CLEAR); COLOR,URINE YELLOW (YELLOW); KETONES,URINE NEGATIVE (NEGATIVE); LEUKOCYTE ESTERASE ,URINE NEGATIVE (NEGATIVE); NITRITE,URINE NEGATIVE (NEGATIVE); PROTEIN,URINE DIPSTICK 2+ (NEGATIVE); URINE UROBILINOGEN 0.2 mg/dL (0.2 - 1)
[2019-11-25 15:31] LABS: BACTERIA,URINE MODERATE /HPF; RBC,URINE 0-5 /HPF (0-5)
[2019-11-25 15:32] LABS: EPITHELIAL CELLS,URINE RARE /LPF
--- NOTE | 2019-11-25 15:58 | NUR ---
Covid swab obtained for test.
[2019-11-25] MEDS ORDERED: LASIX40 MG PO (16:00)
[2019-11-25] MEDS ORDERED: METOPROLOL SUCC50 MG PO (16:00)
--- OUTSIDE RECORDS SUMMARY | 2019-11-25 16:38 | XMS REPORT | Clinical Summary ---
Author Author MARY [facility] Address Unknown Phone Unavailable Care Team Providers Care Engineer Rf Deployment Name Role Phone Sharpless PCP Allergies Comments [...] Advance Directives For more information, please contact: [address] [address] Date Inactivated Comments Code Status Date Activated 02/23/2017 3:59 PM Full Code 02/21/2017 5:39 AM This code status was determined by: Patient 02/05/2017 2:49 PM Full Code 02/01/2017 10:20 PM This code status was determined by: Patient
--- OUTSIDE RECORDS SUMMARY | 2019-11-25 16:38 | XMS REPORT | Clinical Summary ---
Author Author [facility] ict Organization [facility] ict Address Unknown Phone Unavailable Care Team Providers Care Software Sales Manager Name Role Phone Sri Patton RN 2 [...] Added automatically from request for antonieta stinson [id number] Left eye pain Encounters Care Team Description [...] 12/17/2018 Office Visit Ophthalmology Jose Luis Sepulved[place], [place] Ham Tijerina MD Hyphema after procedure (Primary [...] [facility] Specimen Blood Performing Organization Address [facility] one Number [facility] [address] [place] [address] * ABO/RH CONFIRMATION (12/12/2018 12:33 PM CDT) ABO/RH O POS BT BLOOD BANK Specimen Blood Performing Organization Address [facility] one Number BT B[facility] B[facility] [address] [place] [address] * Type and Screen (12/12/2018 12:08 PM CDT) Specimen 12/15/2018 23:59 BT BLOOD BANK Expiration ABO/RH O POS BT BLOOD BANK Antibody Screen NEG BT BLOOD BANK Specimen Blood Performing Organization Address [facility] one Number BT BLOOD BANK [address] [place] [address] * POCT BMP POC docked device (12/12/2018 [...] LABORATORY Specimen Blood, venous Performing Organization Address [facility] one Number [facility] [address] [place] [address] * 12 LEAD EKG (12/12/2018 12:02 PM CDT) 12 LEAD EKG FOR [facility] Test Date: 2018-12-12 Pat Name: PASCUAL ALBERT Department: Room: Gender: M Mail Reader: [id number] : 1955 Requested By: TAMARA TIJERINA Order Number: [id number] Reading MD: Debi Kelley M.D. Measurements Intervals Register Rate: 60 P: 55 [place]: 150 QRS: -26 QRSD: 119 T: 76 QT: 469 QTc: 469 Interpretive Statements SINUS RHYTHM POSSIBLE LEFT ATRIAL ENLARGEMENT BORDERLINE LEFT AXIS DEVIATION LEFT VENTRICULAR HYPERTROPHY AND ST-T CHANGE Electronically Signed On 12-12-2018 13:00:27 CDT by Debi Kelley M.D. Specimen Performing Organization Address [facility] one Number [facility] * XRAY CHEST 2 VIEWS (12/12/2018 11:58 AM CDT) Specimen Impressions Performed At IMPRESSION: [facility] Central pulmonary vascular congestion a nd [...] 30.9 (L) 32.0 - 36.0 g/dL [facility] RDW 52.2 (H) 35.1 - 43.9 [...] 0.35 0.30 - 0.82 K/uL [facility] [place]) LABOR[facility]ORY Eos (Absolute) 0.07 0.04 - 0.54 K/uL [facility] Baso (Absolute) 0.03 0.01 - 0.08 K/uL [facility] Immature Grans 0.03 0.00 - 0.03 K/uL [facility] (Abs) [facility] Absolute NRBC 0.00 K/uL [facility] Specimen Blood Performing Organization Address [facility] Ph one Number [facility] [address] [place] [address] * PT/INR (12/12/2018 11:58 AM CDT) PT 13.8 11.8 - 15.0 Seconds [facility] INR 1.1 Refer to INR ranges [facility] Comment: LABORATORY 2.0 - 3.0 for moderate intensity anticoagulation 2.5 - 3.5 for high intensity anticoagulation Specimen Blood Performing Organization Address [facility] one Number [facility] [address] [place] [address] [phone] after 11/24/2018 Insurance Type Payer Benefit Subscriber ID Effective Phone Address Plan / Dates [employer] xxxxxxxx 2018-P [facility] [address] [place] [address] LIENS PENDING xxxxxxxxx 2009- [phone] [place] [address] Liability
--- OUTSIDE RECORDS SUMMARY | 2019-11-25 16:38 | XMS REPORT | Continuity of Care Document ---
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 [facility] Lymphocytes 25.0 20.0 - 40.0 09/02/2017 [facility] HEMATOLOGY Monocytes 7.5 2.0 - 12.0 09/02/2017 [facility] HEMATOLOGY Segs 62.7 45.0 - 75.0 09/02/2017 [facility] MCHC 32.9 32.0 - 36.0 09/02/2017 [facility] MCH 31.3 27.0 - 31.0 09/02/2017 [facility] MCV 94.9 80.0 - 94.0 09/02/2017 [facility] Hct 39.6 42.0 - 54.0 09/02/2017 [facility] RDW 14.7 11.5 - 14.5 09/02/2017 [facility] HEMATOLOGY MPV 7.1 7.4 - 10.4 09/02/2017 [facility] HEMATOLOGY Platelet 172 133 - 450 09/02/2017 [facility] HEMATOLOGY Hgb 13.0 14.0 - 18.0 09/02/2017 [facility] HEMATOLOGY RBC 4.17 4.70 - 6.10 09/02/2017 [facility] HEMATOLOGY WBC 5.4 3.7 - 10.4 09/02/2017 [facility] HEMATOLOGY INR 1.05 0.85 - 1.17 09/02/2017 [facility] HEMATOLOGY PT 13.7 12.0 - 14.7 09/02/2017 [facility] URINE AND STOOL UA Bacteria Occasional /HPF None Seen /HPF 09/02/[address] [facility] [address] URINE AND STOOL UA RBC >100 /HPF 0 - 2 09/02/2017 [facility] URINE AND STOOL UA WBC 3-5 /HPF 0 - 5 09/02/2017 [facility] URINE AND STOOL UA Sq Epi None Seen (09/02/17 6:06 AM) Few 09/02/2017 [facility] URINE AND STOOL Micro? Performed (09/02/17 6:06 AM) 09/02/2017 [facility] URINE AND STOOL UA Leuk Est Moderate *ABN* (09/02/17 6:06 AM) Negative 09/02/2017 [facility] URINE AND STOOL UA Ketones 15 09/02/2017 [facility] URINE AND STOOL UA pH 7.0 5.0 - 8.0 09/02/2017 [facility] URINE AND STOOL UA Bili Negative (09/02/17 6:06 AM) Negative 09/02/2017 [facility] URINE AND STOOL UA Blood Large *ABN* (09/02/17 6:06 AM) Negative 09/02/2017 [facility] URINE AND STOOL UA Turbidity Marked *ABN* (09/02/17 6:06 AM) Clear 09/02/2017 [facility] URINE AND STOOL UA Spec Grav 1.010 <=1.030 09/02/2017 [facility] URINE AND STOOL UA Glucose Negative (09/02/17 6:06 AM) Negative 09/02/2017 [facility] URINE AND STOOL UA Protein >=300 mg/dL Negative mg/dL 09/02/2017 [facility] URINE AND STOOL UA Urobilinogen 4.0 0.1 - 1.0 09/02/2017 [facility] URINE AND STOOL UA Nitrite Positive *ABN* (09/02/17 6:06 AM) Negative 09/02/2017 [facility] URINE AND STOOL UA Color Red *ABN* (09/02/17 6:06 AM) Yellow 09/02/2017 [facility] CARDIAC ENZYMES Troponin-I <0.02 0.00 - 0.40 08/15/2017 [facility] CARDIAC ENZYMES CK MB Index 1.5 0.0 - 2.5 08/15/2017 [facility] CARDIAC ENZYMES CK MB 1.9 0.5 - 3.6 08/15/2017 [facility] CARDIAC ENZYMES Total CK 129 12 - 191 08/15/2017 [facility] CHEM PANEL eGFR 77 08/15/2017 Result [...] should be multiplied by the estimated BMI. [facility] CHEM PANEL Calcium Lvl 7.9 8.5 - 10.5 08/15/2017 [facility] CHEM PANEL CO2 28 24 - 32 08/15/2017 [facility] CHEM PANEL Albumin Lvl 3.2 3.5 - 5.0 08/15/2017 [facility] CHEM PANEL Total Protein 8.0 6.4 - 8.4 08/15/2017 [facility] CHEM PANEL Chloride Lvl 106 95 - 109 08/15/2017 [facility] CHEM PANEL Alk Phos 103 39 - 136 08/15/2017 [facility] CHEM PANEL AST 25 0 - 37 08/15/2017 [facility] CHEM PANEL ALT 21 0 - 65 08/15/2017 [facility] CHEM PANEL B/C Ratio 13 6 - 25 08/15/2017 [facility] CHEM PANEL AGAP 12.0 10.0 - 20.0 08/15/2017 [facility] CHEM PANEL Bili Total 0.5 0.2 - 1.3 08/15/2017 [facility] CHEM PANEL A/G Ratio 0.7 0.7 - 1.6 08/15/2017 [facility] CHEM PANEL Globulin 4.8 2.7 - 4.2 08/15/2017 [facility] CHEM PANEL Creatinine Lvl 1.03 0.50 - 1.40 08/15/2017 [facility] CHEM PANEL BUN 13 7 - 22 08/15/2017 [facility] CHEM PANEL Potassium Lvl 4.0 3.5 - 5.1 08/15/2017 [facility] CHEM PANEL Sodium Lvl 142 135 - 145 08/15/2017 [facility] CHEM PANEL Glucose Lvl 78 70 - 99 08/15/2017 [facility] HEMATOLOGY Basophils 0.6 0.0 - 1.0 08/15/2017 [facility] HEMATOLOGY Eosinophils 1.7 0.0 - 4.0 08/15/2017 [facility] HEMATOLOGY Segs-Bands # 4.4 1.5 - 8.1 08/15/2017 [facility] HEMATOLOGY Monocytes 10.2 2.0 - 12.0 08/15/2017 [facility] HEMATOLOGY Lymphocytes # 1.6 1.0 - 5.5 08/15/2017 [facility] HEMATOLOGY Eosinophils # 0.1 0.0 - 0.5 08/15/2017 [facility] HEMATOLOGY Monocytes # 0.7 0.0 - 0.8 08/15/2017 [facility] HEMATOLOGY Lymphocytes 23.6 20.0 - 40.0 08/15/2017 [facility] HEMATOLOGY Segs 63.9 45.0 - 75.0 08/15/2017 [facility] HEMATOLOGY MCH 31.6 27.0 - 31.0 08/15/2017 [facility] HEMATOLOGY MCV 95.7 80.0 - 94.0 08/15/2017 [facility] MCHC 33.0 32.0 - 36.0 08/15/2017 [facility] HEMATOLOGY MPV 7.2 7.4 - 10.4 08/15/2017 [facility] HEMATOLOGY RDW 15.9 11.5 - 14.5 08/15/2017 [facility] HEMATOLOGY Platelet 138 133 - 450 08/15/2017 [facility] HEMATOLOGY Hgb 13.3 14.0 - 18.0 08/15/2017 [facility] HEMATOLOGY Hct 40.2 42.0 - 54.0 08/15/2017 [facility] HEMATOLOGY RBC 4.20 4.70 - 6.10 08/15/2017 [facility] HEMATOLOGY WBC 6.8 3.7 - 10.4 08/15/2017 [facility] URINE AND STOOL UA Urobilinogen <=1.0 mg/dL 0.1 - 1.0 08/15/2017 [facility] URINE AND STOOL UA Color Ltyellow 08/15/2017 [facility] URINE AND STOOL UA Sq Epi None Seen 08/15/2017 [facility] URINE AND STOOL UA RBC 3 0 - 2 08/15/2017 [facility] URINE AND STOOL UA Protein Negative mg/dL Negative mg/dL 08/15/2017 [facility] URINE AND STOOL UA Glucose Negative mg/dL Negative mg/dL 08/15/[address] [facility] [address] URINE AND STOOL UA WBC 1 0 - 5 08/15/2017 [facility] URINE AND STOOL UA Ketones Negative mg/dL Negative mg/dL 08/15/2017 [facility] URINE AND STOOL UA Bili Negative *NA* (08/15/17 4:59 PM) Negative 08/15/2017 [facility] URINE AND STOOL UA Leuk Est Negative (08/15/17 4:59 PM) Negative 08/15/2017 [facility] URINE AND STOOL UA Nitrite Negative (08/15/17 4:59 PM) Negative 08/15/2017 [facility] URINE AND STOOL UA Blood Small *ABN* (08/15/17 4:59 PM) Negative 08/15/2017 [facility] URINE AND STOOL UA pH 6.0 5.0 - 8.0 08/15/2017 [facility] URINE AND STOOL UA Spec Grav 1.009 <=1.030 08/15/2017 [facility] URINE AND STOOL UA Turbidity Clear (08/15/17 4:59 PM) Clear 08/15/2017 [facility] CHEM PANEL eGFR 91 06/12/2017 Result [...] should be multiplied by the estimated BMI. [facility] CHEM PANEL POC Creatinine 0.9 0.5 - 1.4 06/12/2017 [facility] ELECTROLYTES AGAP 10.9 10.0 - 20.0 04/30/2017 [facility] ELECTROLYTES eGFR 97 04/30/2017 Result Comment: [...] should be multiplied by the estimated BMI. [facility] ELECTROLYTES Calcium Lvl 8.1 8.5 - 10.5 04/30/2017 [facility] ELECTROLYTES CO2 27 24 - 32 04/30/2017 [facility] ELECTROLYTES Potassium Lvl 3.9 3.5 - 5.1 04/30/2017 [facility] ELECTROLYTES Sodium Lvl 141 135 - 145 04/30/2017 [facility] ELECTROLYTES Chloride Lvl 107 95 - 109 04/30/2017 [facility] ELECTROLYTES BUN 15 7 - 22 04/30/2017 [facility] ELECTROLYTES Creatinine Lvl 0.7 6 0.50 - 1.40 04/30/2017 [facility] ELECTROLYTES Glucose Lvl 84 70 - 99 04/30/2017 [facility] HEMATOLOGY MCHC 33.2 32.0 - 36.0 04/30/2017 [facility] HEMATOLOGY MCH 30.2 27.0 - 31.0 04/30/2017 [facility] HEMATOLOGY MCV 90.9 80.0 - 94.0 04/30/2017 [facility] HEMATOLOGY Hct 34.4 42.0 - 54.0 04/30/2017 [facility] HEMATOLOGY MPV 7.0 7.4 - 10.4 04/30/2017 [facility] HEMATOLOGY Platelet 164 133 - 450 04/30/2017 [facility] HEMATOLOGY RDW 15.7 11.5 - 14.5 04/30/2017 [facility] HEMATOLOGY Hgb 11.4 14.0 - 18.0 04/30/2017 [facility] HEMATOLOGY RBC 3.78 4.70 - 6.10 04/30/2017 [facility] HEMATOLOGY WBC 5.6 3.7 - 10.4 04/30/2017 [facility] HEMATOLOGY Monocytes # 0.5 0.0 - 0.8 04/30/2017 [facility] HEMATOLOGY Eosinophils # 0.2 0.0 - 0.5 04/30/2017 [facility] HEMATOLOGY Lymphocytes # 1.5 1.0 - 5.5 04/30/2017 [facility] HEMATOLOGY Monocytes 8.9 2.0 - 12.0 04/30/2017 [facility] Lymphocytes 26.3 20.0 - 40.0 04/30/2017 [facility] HEMATOLOGY Segs 59.6 45.0 - 75.0 04/30/2017 [facility] HEMATOLOGY Segs-Bands # 3.3 1.5 - 8.1 04/30/2017 [facility] HEMATOLOGY Basophils 0.8 0.0 - 1.0 04/30/2017 [facility] HEMATOLOGY Eosinophils 4.4 0.0 - 4.0 04/30/2017 [facility] CHEM PANEL Creatinine Lvl 0.95 0.50 - 1.40 04/29/2017 [facility] CHEM PANEL BUN 15 7 - 22 04/29/2017 [facility] CHEM PANEL Glucose Lvl 96 70 - 99 04/29/2017 [facility] CHEM PANEL Calcium Lvl 8.7 8.5 - 10.5 04/29/2017 [facility] CHEM PANEL CO2 30 24 - 32 04/29/2017 [facility] CHEM PANEL Chloride Lvl 101 95 [...] should be multiplied by the estimated BMI. [facility] CHEM PANEL AGAP 10.7 10.0 - 20.0 04/29/2017 [facility] HEMATOLOGY Lymphocytes 25.1 20.0 - 40.0 04/29/2017 [facility] HEMATOLOGY Segs 64.2 45.0 - 75.0 04/29/2017 [facility] HEMATOLOGY Monocytes 7.0 2.0 - 12.0 04/29/2017 [facility] HEMATOLOGY Basophils 0.9 0.0 - 1.0 04/29/2017 [facility] HEMATOLOGY Segs-Bands # 3.9 1.5 - 8.1 04/29/2017 [facility] HEMATOLOGY Eosinophils 2.8 0.0 - 4.0 04/29/2017 [facility] HEMATOLOGY Lymphocytes # 1.5 1.0 - 5.5 04/29/2017 [facility] HEMATOLOGY Eosinophils # 0.2 0.0 - 0.5 04/29/2017 [facility] HEMATOLOGY Basophils # 0.1 0.0 - 0.2 04/29/2017 [facility] HEMATOLOGY Monocytes # 0.4 0.0 - 0.8 04/29/2017 [facility] HEMATOLOGY Platelet 190 133 - 450 04/29/2017 [facility] HEMATOLOGY RDW 15.7 11.5 - 14.5 04/29/2017 [facility] HEMATOLOGY MPV 6.9 7.4 - 10.4 04/29/2017 [facility] MCHC 32.7 32.0 - 36.0 04/29/2017 [facility] HEMATOLOGY RBC 4.34 4.70 - 6.10 04/29/2017 [facility] HEMATOLOGY WBC 6.0 3.7 - 10.4 04/29/2017 [facility] HEMATOLOGY Hct 39.6 42.0 - 54.0 04/29/2017 [facility] HEMATOLOGY MCV 91.3 80.0 - 94.0 04/29/2017 [facility] HEMATOLOGY MCH 29.8 27.0 - 31.0 04/29/2017 [facility] HEMATOLOGY Hgb 13.0 14.0 - 18.0 04/29/2017 [facility] LIPIDS VLDL 29 04/29/2017 [facility] LDL (Calculated) 96 <=99 mg/dL 04/29/2017 [facility] LIPIDS Trig 143 <=149 mg/dL 04/29/2017 [facility] Chol 184 <=199 mg/dL 04/29/2017 [facility] HDL 59 >=61 mg/dL 04/29/2017 [facility] CHD Risk 3.12 4.00 - 7.30 04/29/2017 [facility] Pathology Reports No Data Provided for This Section Diagnostic Reports Report Value Date Source Abdomen/Pelvis CTA Patient Bereket abdul: TERESA WARD : 1955; Age: 63 years y/o Male MR: [id number] * CT ANGIOGRAPHY OF THE ABDOMEN \\T\\ [...] lumbar spine from L2 through S1. SL: [id number] 10/02/2018 [facility] Tibia fibula series DX Exam: [...] Impression: Right nephrolithiasis. Right ureteral stent. 11/18/2017 [facility] Abdomen AP DX Clinical Indicat ion: [...] portion of the stent. SL: LAMONT 09/02/2017 [facility] Renal pyelogram retrograde DX Patient Name: TERESA WARD : 1955; Age: 61 years y/o Male MR: [id number] RETROGRADE PYELOGRAPHY, RIGHT HISTORY: Calculus at right [...] bladder. Please refer to urologist's notes. BONILLA: [id number] 08/16/2017 [facility] Scrotal/Testicle w Doppler US Testicular ultrasound [...] right epididymal head cyst. SL: MORENO 08/16/2017 [facility] Abdomen/Pelvis CTA CTA ABDOMEN /PELVIS WITH [...] is interval increase in hydronephrosis. SL:16 08/16/2017 [facility] Chest 2 views DX Clinical Latoya [...] from the previous study. 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 SL: [id number] 06/12/2017 [facility] Chest/Abdominal Aorta with Runoff CTA Patient Name: TERESA WARD : 1955; Age: 61 years y/o Male MR: [id number] Study: Chest/Abdominal Aorta with Runoff CTA 04/11/2017 [...] normal 1.6 cm diameter. Celiac SMA and KAYLIN origins are patent. The mid celiac axis [...] negative cervical spine series.. SL: 12 03/23/2014 [facility] Consultation Notes No Data Provided for This Section Discharge Summaries No Data Provided for This Section History and Physicals No Data Provided for This Section Vital Signs Vital Sign Value Date Comments Source Systolic (mm Hg) 173 11/26/2017 [facility] Diastolic (mm Hg) 65 11/26/2017 [facility] Systolic (mm Hg) 170 11/26/2017 [facility] Diastolic (mm Hg) 57 11/26/2017 [facility] Systolic (mm Hg) 169 11/26/2017 [facility] Diastolic (mm Hg) 57 11/26/2017 [facility] Respitory Rate 20 11/26/2017 [facility] Respitory Rate 18 11/26/2017 [facility] Heart Rate 56 11/26/2017 [facility] Respitory Rate 17 11/26/2017 [facility] Temperature Oral (F) 98.3 F 11/19/2017 [facility] Heart Rate 60 11/19/2017 [facility] Weight 86.08 11/19/2017 [facility] BMI Calculated 32.57 11/19/2017 [facility] Height 162.56 cm 11/19/2017 [facility] Heart Rate 71 09/10/2017 [facility] Respitory Rate 18 09/10/2017 [facility] Temperature Oral (F) 99.0 F 09/10/2017 [facility] Systolic (mm Hg) 165 09/10/2017 [facility] Diastolic (mm Hg) 61 09/10/2017 [facility] Height 162.56 cm 09/10/2017 [facility] Weight 84.091 09/10/2017 [facility] BMI Calculated 31.82 09/10/2017 [facility] Systolic (mm Hg) 104 09/02/2017 [facility] Diastolic (mm Hg) 82 09/02/2017 [facility] Respitory Rate 16 09/02/2017 [facility] Temperature Oral (F) 98.7 F 09/02/2017 [facility] Respitory Rate 16 09/02/2017 [facility] Temperature Oral (F) 98.7 F 09/02/2017 [facility] Systolic (mm Hg) 134 09/02/2017 [facility] Diastolic (mm Hg) 66 09/02/2017 [facility] Weight 81.818 09/02/2017 [facility] BMI Calculated 34.08 09/02/2017 [facility] Systolic (mm Hg) 125 09/02/2017 [facility] Diastolic (mm Hg) 81 09/02/2017 [facility] Height 154.94 cm 09/02/2017 [facility] Respitory Rate 18 09/02/2017 [facility] Heart Rate 85 09/02/2017 [facility] Temperature Oral (F) 98.3 F 09/02/2017 [facility] Systolic (mm Hg) 127 08/16/2017 [facility] Diastolic (mm Hg) 69 08/16/2017 [facility] Respitory Rate 16 08/16/2017 [facility] Heart Rate 64 08/16/2017 [facility] Temperature Oral (F) 97.5 F 08/16/2017 [facility] Heart Rate 73 08/16/2017 [facility] Systolic (mm Hg) 146 08/16/2017 [facility] Diastolic (mm Hg) 74 08/16/2017 [facility] Respitory Rate 16 08/16/2017 [facility] Systolic (mm Hg) 146 08/16/2017 [facility] Diastolic (mm Hg) 74 08/16/2017 [facility] Respitory Rate 16 08/16/2017 [facility] Heart Rate 73 08/16/2017 [facility] Temperature Oral (F) 97.5 F 08/16/2017 [facility] Temperature Oral (F) 98.2 F 08/16/2017 [facility] Height 160.02 cm 08/15/2017 [facility] Weight 81.818 08/15/2017 [facility] BMI Calculated 31.95 08/15/2017 [facility] Systolic (mm Hg) 124 04/30/2017 [facility] Diastolic (mm Hg) 67 04/30/2017 [facility] Respitory Rate 16 04/30/2017 [facility] Heart Rate 60 04/30/2017 [facility] Temperature Oral (F) 98.1 F 04/30/2017 [facility] Heart Rate 61 04/30/2017 [facility] Temperature Oral (F) 98.2 F 04/30/2017 [facility] Respitory Rate 16 04/30/2017 [facility] Systolic (mm Hg) 93 04/30/2017 [facility] Diastolic (mm Hg) 51 04/30/2017 [facility] Systolic (mm Hg) 98 04/30/2017 [facility] Diastolic (mm Hg) 49 04/30/2017 [facility] Respitory Rate 16 04/30/2017 [facility] Heart Rate 56 04/30/2017 [facility] Temperature Oral (F) 98.1 F 04/30/2017 [facility] BMI Calculated 32.68 04/29/2017 [facility] Weight 86.364 04/29/2017 [facility] Height 162.56 cm 04/29/2017 [facility] Diastolic (mm Hg) 68 03/23/2014 [facility] Respitory Rate 16 03/23/2014 [facility] Systolic (mm Hg) 163 03/23/2014 [facility] Temperature Oral (F) 97.8 F 03/23/2014 [facility] Heart Rate 60 03/23/2014 [facility] Weight 90.909 03/23/2014 [facility] Respitory Rate 16 03/23/2014 [facility] Temperature Oral (F) 98.1 F 03/23/2014 [facility] Diastolic (mm Hg) 77 03/23/2014 [facility] Heart Rate 65 03/23/2014 [facility] Systolic (mm Hg) 145 03/23/2014 [facility] BMI Calculated 34.4 03/23/2014 [facility] Height 162.56 cm 03/23/2014 [facility] Encounters Location Location Details Encounter Type Encounter Number Reason For Visit Attending Provider ADM Date DC Date Status Source [facility] [id number] An Oliveros 03/23/2014 03/23/2014 [facility] [id number] Ranjan Gil 04/11/2017 [facility] [facility] [id number] Ranjan Gil 04/29/2017 04/30/2017 [facility] Outpatient [id number] Rock Reese 06/12/2017 06/13/2017 [facility] Inpatient [id number] Ranjan Gil 08/15/2017 08/17/2017 [facility] Emergency [id number] Reece Puentes 09/02/2017 09/02/2017 [facility] Outpatient [id number] Jose Guadalupe Jenkins 09/10/2017 09/10/2017 [facility] Outpatient [id number] Jose Guadalupe Jenkins 11/18/2017 11/19/2017 [id number] [facility]2017 [facility] [facility] [id number] Joslyn Mayers 02/04/2018 02/05/2018 FARHAD Miller [facility] Outpatient [id number] Ranjan Gil 10/02/2018 10/03/2018 [facility] Procedures Procedure Code Date Perfomer Comments Source AAA - Repair of abdominal aortic aneurys m using bifurcation graft [id number] [facility] Cholecystectomy [id number] [facility] Miscellaneous operations<sup>1</sup> [id number] back surge ry FARHAD [place],[facility] Cystoscopy [id number] [facility] [place],[facility] Procedure on back<sup>2</sup> [id number] Surgery [facility] Assessment and Plan Assessment and Plan [...] doing well with no other complaints. 08/17/2017 [facility] Extracted from:Title: Clinical Document Author: Taniya [...] Palpable FA. Telemetry: Normal sinus rhythm 04/30/2017 [facility] Plan of Care No Data Provided [...] Cessation Counseling No entered on: 11/19/17 11/19/2017 [facility] Social History TypeResponse Smoking Status Never smoker, Exposure to Tobacco Smoke None, Cigarette Smoking Last 365 Days No, Reg Smoking Cessation Counseling No 03/23/2014 [facility] Family History No Data Provided for This Section Advance Directives No Data Provided for This Section Functional Status No Data Provided for This Section
--- OUTSIDE RECORDS SUMMARY | 2019-11-25 16:39 | XMS REPORT ---
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 14:28:00 [facility] Temperature Oral (F) 2017-09-02 14:28:00 98.7 F [facility] Respitory Rate 2017-09-02 13:14:00 MH [facility] Temperature Oral (F) 2017-09-02 13:14:00 98.7 F [facility] Systolic (mm Hg) 2017-09-02 13:14:00 [facility] [place] Diastolic (mm Hg) 2017-09-02 13:14:00 [facility] Weight 2017-09-02 11:24:00 [facility] BMI Calculated 2017-09-02 11:24:00 [facility] Systolic (mm Hg) 2017-09-02 11:24:00 [facility] [place] Diastolic (mm Hg) 2017-09-02 11:24:00 [facility] Height 2017-09-02 11:24:00 154.94 cm [facility] Respitory Rate 2017-09-02 11:24:00 [facility] Heart Rate 2017-09-02 11:24:00 [facility] Temperature Oral (F) 2017-09-02 11:24:00 98.3 F [facility] Systolic (mm Hg) 2017-08-16 23:30:00 [facility] [place] Diastolic (mm Hg) 2017-08-16 23:30:00 [facility] Respitory Rate 2017-08-16 23:30:00 [facility] Heart Rate 2017-08-16 23:30:00 [facility] Temperature Oral (F) 2017-08-16 23:30:00 97.5 F [facility] Heart Rate 2017-08-16 22:41:00 [facility] Systolic (mm Hg) 2017-08-16 22:41:00 [facility] [place] Diastolic (mm Hg) 2017-08-16 22:41:00 [facility] Respitory Rate 2017-08-16 22:41:00 [facility] Systolic (mm Hg) 2017-08-16 22:30:00 [facility] [place] Diastolic (mm Hg) 2017-08-16 22:30:00 [facility] Respitory Rate 2017-08-16 22:30:00 MH [facility] Heart Rate 2017-08-16 22:30:00 [facility] Temperature Oral (F) 2017-08-16 22:30:00 97.5 F [facility] Temperature Oral (F) 2017-08-16 22:11:00 98.2 F [facility] Height 2017-08-15 22:40:00 160.02 cm [facility] Weight 2017-08-15 22:40:00 [facility] BMI Calculated 2017-08-15 22:40:00 MH [facility] Systolic (mm Hg) 2017-04-30 16:37:00 [facility] Diastolic (mm Hg) 2017-04-30 16:37:00 [facility] Respitory Rate 2017-04-30 16:37:00 [facility] Heart Rate 2017-04-30 16:37:00 [facility] Temperature Oral (F) 2017-04-30 16:37:00 98.1 F [facility] Heart Rate 2017-04-30 12:44:00 [facility] Temperature Oral (F) 2017-04-30 12:44:00 98.2 F [facility] Respitory Rate 2017-04-30 12:44:00 [facility] Systolic (mm Hg) 2017-04-30 12:44:00 [facility] Diastolic (mm Hg) 2017-04-30 12:44:00 [place] Systolic (mm Hg) 2017-04-30 08:58:00 [facility] [place] Diastolic (mm Hg) 2017-04-30 08:58:00 [facility] Respitory Rate 2017-04-30 08:58:00 MH [facility] Heart Rate 2017-04-30 08:58:00 [facility] Temperature Oral (F) 2017-04-30 08:58:00 98.1 F [facility] BMI Calculated 2017-04-29 16:55:00 [facility] Weight 2017-04-29 16:55:00 [facility] Height 2017-04-29 16:55:00 162.56 cm [facility] Diastolic (mm Hg) 2014-03-23 18:05:00 [facility] Respitory Rate 2014-03-23 18:05:00 [place] Systolic (mm Hg) 2014-03-23 18:05:00 [place] Temperature Oral (F) 2014-03-23 18:05:00 97.8 F [facility] [place] Heart Rate 2014-03-23 18:05:00 [place] Weight 2014-03-23 16:46:00 [place] Respitory Rate 2014-03-23 16:46:00 [place] Temperature Oral (F) 2014-03-23 16:46:00 98.1 F [facility] [place] Diastolic (mm Hg) 2014-03-23 16:46:00 [place] Heart Rate 2014-03-23 16:46:00 [place] Systolic (mm Hg) 2014-03-23 16:46:00 [place] BMI Calculated 2014-03-23 16:46:00 [place] Height 2014-03-23 16:46:00 162.56 cm [place] Procedures Procedure Date / Time Performed Performing Clinician Sour e GLUCOSE POC 2018-12-12 23:07:00 Unknown, Provider Livan Hubbard [facility] OPHTH - TRABECULECTOMY 2018-12-12 20:31:00 Ham Tijerina [facility] ABO/RH CONFIRMATION 2018-12-12 17:33:00 Rickey Tijerina [facility] TYPE AND SCREEN 2018-12-12 17:08:00 Rickey Tijerina T&S - COLLECTION 2018-12-12 17:08:00 Rickey Tijerina BMP POC 2018-12-12 17:03:00 Unknown, Provider Livan Hubbrad [facility] 12 LEAD EKG 2018-12-12 17:02:55 Rickey Tijerina XRAY CHEST 2 VIEWS 2018-12-12 16:58:59 Rickey Tijernia CBC/DIFF 2018-12-12 16:58:00 Rickey Tijerina PT/INR 2018-12-12 16:58:00 Rickey Tijerina h CBC 2018-12-12 16:58:00 Rickey Tijerina AAA - Repair of abdominal aortic aneurysm using bifurcation monisha t [facility] [place] Cholecyst[place] [facility] [place] , [facility] Miscellaneous operations<sup>1</sup> FARHAD [place], [facility], [facility] Cystoscopy NEGROBoaz [place] , [facility] Procedure on back<sup>2</sup> FARHAD [place], [facility] Plan of Care Planned Activity Planned Date Details Comments Source Future Scheduled Test 2020-04-06 00:00:00 IMM Influenza Seas onal Apr to September (>/= 19 yrs) [code = IMM Influenza Seasonal Apr to September (>/= 19 yrs)] [facility] Scheduled Test 2018 00:00:00 IMM Pneumococcal A ge 65 and Up [code = IMM Pneumococcal Age 65 and Up] [facility] Scheduled Test 2003-09-16 00:00:00 Colorectal Cancer Scrn Annual (FIT/FOBT) Age 50 to 75 [code = Colorectal Cancer Scrn Annual (FIT/FOBT) Age 50 to 75] [facility] Encounters Start Date/Time End Date/Time Encounter Type Admission Type Attendi [facility] Care Department Encounter ID Source 2019-01-06 08:19:31 2019-01-06 08:19:31 Outpatient [facility] [id number] [facility] 2018-12-23 08:22:31 2018-12-23 08:22:31 Outpatient [facility] [id number] [facility] 2018-12-17 16:57:05 2018-12-17 16:57:05 Outpatient [facility] [id number] [facility] 2018-12-16 00:00:00 2018-12-16 00:00:00 Outpatient [facility] [id number] [facility] 2018-12-13 00:00:00 2018-12-13 00:00:00 Outpatient [facility] [id number] [facility] 2018-12-12 12:13:44 2018-12-12 12:13:44 Emergency [facility] [id number] [facility] 2018-12-12 11:35:30 2018-12-12 11:35:30 Emergency [facility] [id number] [facility] 2018-12-12 00:00:00 2018-12-12 00:00:00 Outpatient [facility] [id number] [facility] 2018-12-12 00:00:00 2018-12-12 00:00:00 Emergency [facility] [id number] [facility] 2018-12-12 00:00:00 2018-12-12 00:00:00 Emergency [facility] [id number] [place] [address] 2018-10-02 13:30:00 2018-10-03 04:59:00 Outpatient [facility] [id number] [facility] 2018-10-02 08:30:00 2018-10-02 23:59:00 Outpatient Minna Gil [facility] [id number] 2018-02-04 15:40:00 2018-02-05 04:59:00 [facility] [place] [id number] [facility] [place] 2018-02-04 10:40:00 2018-02-04 23:59:00 Outpatient Gary Mayers [facility] [id number] 2017-11-26 10:29:00 2017-11-26 15:40:00 Day Surgery [facility] [id number] [facility] 2017-11-26 05:29:00 2017-11-26 10:40:00 Outpatient Jose Guadalupe Jenkins [facility] [id number] 2017-11-18 14:29:00 2017-11-19 04:59:00 Outpatient [facility] [id number] [facility] 2017-11-18 09:29:00 2017-11-18 23:59:00 Outpatient Jose Guadalupe Jenkins [facility] [id number] 2017-09-10 15:00:00 2017-09-10 18:00:00 Outpatient [facility] [id number] [facility] 2017-09-10 09:00:00 2017-09-10 12:00:00 Outpatient Jose Guadalupe Jenkins [facility] [id number] 2017-09-02 11:16:00 2017-09-02 15:05:00 Emergency [facility] [id number] [facility] 2017-09-02 05:16:00 2017-09-02 09:05:00 Outpatient Reece Puentes [facility] [id number] 2017-08-15 22:18:00 2017-08-17 02:18:00 Inpatient [facility] [id number] [facility] 2017-08-15 16:18:00 2017-08-16 20:18:00 Outpatient Lu Khanh lorenahussein [facility] [id number] 2017-06-12 14:00:00 2017-06-13 05:59:00 Outpatient [facility] [id number] [facility] 2017-06-12 08:00:00 2017-06-12 23:59:00 Outpatient Hugh Rock Indra [facility] [id number] 2017-04-29 16:10:00 2017-04-30 20:48:00 Bedded Outpatient [facility] [id number] [facility] 2017-04-29 11:10:00 2017-04-30 15:48:00 Outpatient Minna Gil [facility] [id number] 2017-04-11 13:22:00 2017-04-12 04:59:00 [facility] [place] [id number] [facility] [place] 2017-04-11 08:22:00 2017-04-11 23:59:00 Outpatient Minna Gil [facility] [id number] 2014-03-23 16:44:00 2014-03-23 18:47:[address] [facility] [id number] [facility] 2014-03-23 11:44:00 2014-03-23 13:47:00 Outpatient An Oliveros [facility] [id number] Results Test Description Test Time Test Comments Results Result Comments Source CHEST SINGLE (PORTABLE) 2019-11-25 11:58:00 [facility] [address] [place] [address] Patient Name: TERESA WARD MR #: [id number] : 1955 Age/Sex: 64/M Req #: [id number] Adm Physician: Ordered by: KORY CODY DO Report #: [id number] Location: ER Room/Bed: Procedure: [id number] DX/CHEST SINGLE (PORTABLE) Exam Date: 11/25/19 Exam Time: 1105 REPORT STATUS: Signed X-ray chest AP portable Comparison: None History: Rapid heart rate Findings: Central airways unremarkable. Possible cardiomegaly. Atherosclerotic aorta. Elevation of the left hemidiaphragm could represent subpulmonic effusion. No pneumothorax. No significant focal lung disease. Visualized skeletal structures grossly unremarkable. Upper abdomen not well-visualized. Impression: Relative elevation of the left hemidiaphragm as described above. Cardiomegaly. No significant focal lung disease visualized. Signed by: Tone Guillen MD on 11/25/2019 12:00 PM Dictated By: TONE GUILLEN MD 1200 Transcribed By: CADEN on 11/25/19 1200 COPY TO: KORY CODY DO - XR HIP W/PEL UNI 2+V LT 2019-01-24 10:29:00 Name: TERESA WARD [facility] : 1955 Age/S:63 /M [address] [facility] Unit#:[id number] [place]: [place] [address] Phys: Rickey Patiño MD Dis Date: PHONE #: [phone] Status: REG ER FAX #: [phone] Exam Date: 01/24/2019 Reason: trauma, pain EXAMS: CPT CODE: [id number] XR HIP W/PEL UNI 2+[place] [address] CLINICAL HISTORY: trauma, pain TECHNIQUE: Neutral and [...] V LT 2019-01-24 10:29:00 Name: TERESA BAZAN [facility] : 1955 Age/S:63 /M [address] [facility] Unit#:[id number] Loc: [place], [place] [address] Phys: Rickey Patiño MD Dis Date: PHONE #: [phone] Status: REG ER FAX #: [phone] Exam Date: 01/24/2019 Reason: fall EXAMS: CPT CODE: [id number] XR KNEE 3 V LT [address] CLINICAL HISTORY: Pain status post fall TECHNIQUE: [...] Suman Briceno RT(R)(CT) Trnscrpt Data: 01/24/2019 (1029) BinaP1 Orig Print D/T: S: 01/24/2019 (1033) PAGE 1 Signed Report - US ABDOMEN COMPLETE 2018-12-25 10:55:00 Name : TERESA WARD [facility]se [facility] : 1955 Age/S: 63 / M [address] Unit #: [id number] Loc: [place] [address] Phys: Davida Sanchez MD Acct: [id number] Dis Date: Status: REG CLI PHONE #: [phone] Exam Date: 12/25/2018 1018 FAX #: [phone] Reason: CIRRHOSIS EXAMS: CPT CODE: [id number] US ABDOMEN COMPLETE 33065 TECHNIQUE - US ABDOMEN COMPLETE . COMPARISON: [...] 1 Signed Report (CONTINUED) Name: TERESA WARD [facility] EDJesse [facility] : 1955 Age/S: 63 / M [address] Unit #: [id number] Loc: [place] [address] Phys: Davida Sanchez MD Acct: [id number] Dis Date: Status: REG CLI PHONE #: [phone] Exam Date: 1018 FAX #: [phone] Reason: CIRRHOSIS EXAMS: CPT CODE: [id number] US ABDOMEN COMPLETE 73646 <Continued> CC: Davida Sanchez MD; Rito Barnes Technologist: EDWARD DYE RT(R),RDMS Trnscb Date/Time: 12/25/2018 (3670) [email or web address] Orig Print D/T: S: 12/25/2018 (7191) Probe: PAGE 2 Signed Report POCT GLUCOSE POC docked device 2018-12-12 18:09:00 Test Item Glucose POC (test code = 61830103) 97 mg/dL 74-106 Lab Interpretation (test code = 19064-6) [facility] [id number] 13:40:14IMPRESSION: Central pulmonary vascular congestion and bibasilar [...] report.Signed By: Florida Lopez MD, 12/12/2018 1:40 PMHawkins HealthABO/RH CONFIRMATION 2018-12-12 13:24:00* Test Item Value Reference Range Interpretation Comments ABO/RH (test code = 22750354) O POS [facility] HealthType and Ghtszq6571-40-53 13:22:00* Test Item Value Reference Range Interpretation Comments Specimen Expiration (test code = 81824549) 12/15/2018 23:59 ABO/RH (test code = 69911354) O POS Antibody Screen (test code = 43955680) NEG [facility]/[id number] 13:05:00* Test Item Value Reference Range Interpretation Comments PT (test code = 5902-2) 13.8 11.8- 15.0 Seconds INR (test code = 41890571) 1.1 Refer to INR ranges 2.0 - 3.0 for moderate intensity anticoagulation2.5 - 3.5 for high intensity anticoagulation Lab Interpretation (test code = 78219-0) Normal [place] [address] LEAD [id number] 13:00:3112 LEAD EKG FOR [facility] Test Date: 3962-93-88Hcs Name: TERESA WARD Department: Room: Gender: Performance Test Engineer: [id number]: 1955 Requested By: RICKEY TIJERINA Order Number: [id number] Urbano MD: Debi Kelley M.D. MeasurementsIntervals [place] Rate: 60 P: 55PR: 150 QRS: -26QRSD: 119 T: 76QT: 469 QTc: 469 Interpretive StatementsSINUS RHYTHMPOSSIBLE LEFT ATRIAL ENLARGEMENTBORDERLINE LEFT AXIS DEVIATIONLEFT VENTRICULAR HYPERTROPHY AND ST-T CHANGEElectronically Signed On 12-12-2018 13:00:27 CDT by Debi Kelley M.D.SMSSwed[facility]ardCBC/Hwdl2039-44-67 12:38:00* Test Item Value Reference Range Interpretation [...] g/dL 32-36 L RDW (test code = 04917-0) 52.2 fL 35.1-43.9 H Platelet (test code = 777-3) 101 K/uL 150-400 L Mean Platelet Volume (test code = 89257-1) 10.2 fL 9.4-12.4 Percent NRBC (test code = 20052796) 0.0 % Neutrophil (test code = 770-8) 72.7 % 34-67.9 H Lymphs (test code = 736-9) 19.8 % 21.8-50 L Monocytes (test code = 5905-5) 5.4 % 5.3-12 Eos (test code = 713-8) 1.1 % 0.8-5 Basos (test code = 706-2) 0.5 % 0.2-1.2 Immature Granulocytes (test code = 27471129) 0.5 % 0-0.5 Neutrophils (Absolute) (test code = 93994011) 4.69 K/uL 1.78-5.3 6 Lymphs (Absolute) (test code = 08481902) 1.28 K/uL 1.32-3.57 L Monocytes(Absolute) (test code = 36141427) 0.35 K/uL 0.3-0.82 Eos (Absolute) (test code = 01483603) 0.07 K/uL 0.04-0.54 Baso (Absolute) (test code = 20909230) 0.03 K/uL 0.01-0.08 Immature Grans (Abs) (test code = 18603112) 0.03 K/uL 0-0.03 Absolute NRBC (test code = 52526557) 0.00 K/uL Lab Interpretation (test code = 28464-7) Abnormal [facility] BMP POC docked ajmjae9531-19-74 12:10:00* Test Item Value Reference Range Interpretation Comments Sodium POC (test code = 90680404) 141 mmol/L 136-145 Potassium POC (test code = 80381868) 4.1 mmol/L 3.5-5.1 Chloride POC (test code = 59658479) 105 mmol/L 98-107 TCO2 POC (test code = 58225194) 24 mmol/L 21-32 Urea Nitrogen POC (test code = 18384979) 26 mg/dL 7-18 H Creatinine POC (test code = 93127136) 1.2 mg/dL 0.6-1.3 Glucose POC (test code = 31491179) 101 mg/dL 74-106 Ionized Calcium POC (test code = 29851757) 1.19 mmol/L 1.15-1.29 eGFR If Africn Am (test code = 97274054) >60 mL/min/1.73 m 2 GFR, Estimated (test code = 83394379) >60 mL/min/1.73 m2 Hemoglobin POC (test code = 61969276) 15.0 g/dL 12-16 15 Hematocrit POC (test code = 53132824) 44.0 % 37-47 Lab Interpretation (test code = 73882-2) Abnormal [facility] [id number] 12:57:0063[facility] HospitalCHEM UYYUT3833-60-09 12:57:001.2MBenjamin Stickney Cable Memorial HospitalJfpviinnmENMVEIKXYEVO0029-96-83 14:17:0012.3MBenjamin [facility] DCUYLCRJFMXI4692-50-49 14:17:0081[facility] HospitalNgmfevjzmJIUDVGKFVYAK6953-34-06 14:17:000.98 CyucumadqZCWSINOCQBNK8872-17-84 14:17:0021 WnvhmwpkqHNGGYSNSZVCH0121-97-39 14:17:0087 AwtblldqzLNSSJYTZSYLA7427-04-14 14:17:23364EP SoutheastELECTROLYTES 2017-11-19 14:17:004.3M DoxsmmflpVIAHWMSQMCCL3874-73-63 14:17:0028[facility] FVGENLWWKVFR0634-82-58 14:17:91663JRMartha's Vineyard HospitalZfugfrnniTUHKIODBUXYK3584-95-72 14:17:008.6 WjnutvlvoFGTONTJMIQ7625-26-09 14:17:00* Test Item Value Reference Range Interpretation Comments INR (test code = INR) 1.00 1 0.85-1.17 KotnhcinlXISXFWBGQU6053-83-64 14:17:00* Test Item Value Reference Range Interpretation Comments PTT (test code = PTT) 30.6 s 22.9-35.8 QtfovbmkoHMTPBVVLPA0120-30-48 14:17:00* Test Item Value Reference Range Interpretation Comments PT (test code = PT) 13.2 s 12.0-14.7 BwsckaefkDNIRNNHVJA2336-99-05 14:17:000.2M OhqtkqhjpUVCWZVKIOT7219-44-27 14:17:000.4 HsrrvblhvJMZKKBEIUY2090-74-16 14:17:000.8 [facility] 2017-11-19 14:17:004.0 OzjkxqroxRWQOWMNCDT7469-23-21 14:17:008.0[facility] ETCYFXHKWE7466-45-31 14:17:001.7 PppjhrcbpYELDLWVACS6763-47-43 14:17:003.1M AvbaokxkyDICTIMYENO5113-05-67 14:17:0030.6M HeommhobjZYYTUZFCKI9938-03-63 14:17:0056.6M GkdgusjjpUPEYKJECBF5439-18-77 14:17:62334BB [facility] 2017-11-19 14:17:007.6M JuzvpwcgdFNSDAUFAWC1101-04-64 14:17:0039.5[facility] RUJRXCRPJS8205-14-76 14:17:0014.5 EysclwmcfKKXEGTIMUA9214-68-42 14:17:0031.9 ZvgxdksawVUBTMADGUZ7787-78-11 14:17:00* Test Item Value Reference Range Interpretation Comments MCH (test code = MCH) 29.1 pg 27.0-31.0 DcskeeoyyNRBARNXPGG6873-19-58 14:17:0091.1M EdnezlkftGAOEIPCIYZ6620-25-61 14:17:0012.6M KozscsmzsGMZSABONTS0394-85-26 14:17:004.33 [facility] 2017-11-19 14:17:005.6M [facility]UR[facility] AND SKPEY8333-04-49 14:17:00>182 [facility] BWNLR6779-41-46 14:17:00Negative (11/19/17 9:17 AM) [facility] QRGFK5807-31-28 14:17:005 [facility] STOOL 2017-11-19 14:17:00Negative *NA*(11/19/17 9:17 AM) [facility] 2017-11-19 14:17:00Large *ABN*(11/19/17 9:17 AM) [facility] 2017-11-19 14:17:00Negative (11/19/17 9:17 AM) [facility] 2017-11-19 14:17:00Clear (11/19/17 9:17 AM) [facility] EWIJQ3180-42-58 14:17:00* Test Item Value Reference Range Interpretation Comments UA Spec Grav (test code = UA Spec Grav) 1.017 1 [facility] NNREP1077-24-32 14:17:00* Test Item Value Reference Range Interpretation Comments UA pH (test code = UA pH) 5.0 1 5.0-8.0 [facility] EVPAJ2886-12-79 22:47:0078 [facility] GMTFV3846-36-47 22:47:92057NC [facility] XVDWI9351-46-58 22:47:003.9 [facility] PANEL 2017-09-10 22:47:96230TJ [facility]ieCHEM KEYXR3426-29-47 22:47:0028 [facility] CHEM VJHXY9376-40-08 22:47:008.2M [facility] RTMFX4222-93-66 22:47:001.02 [facility] EUJLD9812-92-62 22:47:0020 [facility] WMHDN8491-94-47 22:47:88272VE [facility] YSITS2444-95-79 22:47:0012.9[facility]Project[facility]akerATOLOGY 2017-09-10 22:47:00* Test Item Value Reference Range Interpretation Comments INR (test code = INR) 1.05 1 0.85-1.17 [facility]UuponrabsSRINLZLOAD3898-61-29 22:47:00* Test Item Value Reference Range Interpretation Comments PT (test code = PT) 13.7 s 12.0-14.7 [facility] HospitalWeocsdjyzMJPXJZKFYX2334-73-08 22:47:00* Test Item Value Reference Range Interpretation Comments PTT (test code = PTT) 33.7 s 22.9-35.8 [facility] HospitalUhmvsypzhVZYWHCXCRY4797-77-80 22:47:0080.6[facility] HospitalXwevtrsgtESDCLHOIVY3988-94-02 22:47:0011.1M MvxqstunpHNMQFWZCIK0193-14-51 22:47:006.5 [facility] 2017-09[facility]10 22:47:001.5 WekxszjdyFRQMILNIHG5361-25-14 22:47:000.1MH [facility] VWTZBEVUZR6402-64-08 22:47:000.4 NkufemfzmHWDTOJLKBW7315-84-53 22:47:000.8 BjfdxwwemYEXYDKZUDM7062-57-48 22:47:005.5 HzwdfzrodAELZZORWYU9861-35-86 22:47:000.3MH FysirmcytYGTFVPDPPG4080-30-73 22:47:00* Test Item Value Reference Range Interpretation Comments MCH (test code = MCH) 31.1 pg 27.0-31.0 AbxrbpvmfODJIJZZFPJ8883-87-25 22:47:0095.1M SbikodhphSPNYWPLZJP3611-32-51 22:47:0031.2M DvuqjncjxMMQDVGVXUI4833-32-20 22:47:0010.2M [facility] 2017-09-10 22:47:003.28 MtthcjcwqHQDHVZBQIS3648-10-53 22:47:006.8[facility] GUAZYVFGMK4758-37-85 22:47:006.5 LmpviektlZEGONXZYOQ2983-64-65 22:47:48952VX OlexnwezkAUDMPKIHIN6743-39-99 22:47:0014.7 RwpruocakPJTEOVXVND9851-31-91 22:47:0032.7 [facility] RKPLL8825-81-16 22:47:00>182MH [facility] ADMNR0214-60-51 22:47:44246TA [facility] PBAJA5536-32-17 22:47:004MH [facility] GDEKS5385-08-66 22:47:00Trace *ABN*(09/10/17 4:47 PM) [facility] DHCQO7819-17-18 22:47:00Negative (09/10/17 4:47 PM) [facility] RAMXN6781-09-24 22:47:00Marked *ABN*(09/10/17 4:47 PM) [facility] UYKHZ6293-99-55 22:47:00* Test Item Value Reference Range Interpretation Comments UA Spec Grav (test code = UA Spec Grav) 1.018 1 [facility] ZXUGC3234-67-71 22:47:00Yellow *NA*(09/10/17 4:47 PM) [facility] JBDYO4595-83-71 22:47:00* Test Item Value Reference Range Interpretation Comments UA pH (test code = UA pH) 5.0 1 5.0-8.0 [facility] JBOLU8558-13-95 22:47:00Negative *NA*(09/10/17 4:47 PM) [facility] YFKPW4372-58-96 22:47:00Large *ABN*(09/10/17 4:47 PM)[facility] CXHQWPT9296[facility]73-50 12:43:00Positive 1(09/02/17 6:43 AM)[facility] HospitalOkcjqvvqzMHMQASZSNOOV1019-32-89 12:43:0011.8 QmykyqpzbLOYWWLTFDFIW1285-49-51 12:43:0084[facility] HospitalWqcfxidwjRSECQWCSPDKU2185-10-67 12:43:008.4 SoutheastELECTROLYTES 2017-09-02 12:43:20771DX YwvjvkvuvJMXVBGZEBHGN1295-71-68 12:43:0026 [facility] XPIVCDTYGYUS0680-75-25 12:43:0013 QpdbywuhpSPYOMQDLTYNF1326-16-49 12:43:000.96 JhtufanxvQDDSNAGOAOHD3627-93-52 12:43:0087[facility] HospitalQybnbfwxfLXENZWKDMTXM2732-15-38 12:43:64194CU ApdjwaccqPWDMLLIAIEFG8877-31-07 12:43:003.8 [facility] 2017-09-02 12:43:003.4 DzbdwyekzSVSNNWDDLX8986-67-76 12:43:001.4[facility] VNBMLLPPCG7747-77-32 12:43:000.4 NlaoijkciUYPATNERUU0386-71-11 12:43:000.9 BqhqwabkeINTHLZWITD5023-58-35 12:43:003.9 MncviymgsSCPLPQMCGR7639-27-64 12:43:000.2M IyeguecfmCGTHRGHRAD0884-15-10 12:43:0025.0 [facility] 2017-09-02 12:43:007.5 RghgokscsWGMMGMYZMT7332-11-14 12:43:0062.7[facility]2018-02-27 12:43:0032.9[facility] HospitalRymqfupvhGIYGWWIYBX0767-35-77 12:43:00* Test Item Value Reference Range Interpretation Comments MCH (test code = MCH) 31.3 pg 27.0-31.0 [facility]QkidflquqWXXGVWGBQR8065-57-08 12:43:0094.9[facility] HospitalThkvcqeluLPFJYNEDAJ3600-20-58 12:43:0039.6ML[facility] HospitalPoweajcizRRNOVVBEQF9559-73-85 12:43:0014.7[facility] HospitalATOLOGY 2017-09-02 12:43:007.1MBenjamin [facility] HospitalOxpgpuegbQFURNNOUBQ4041-10-20 12:43:69250NV[facility]2018-02-27 12:43:0013.0[facility] HospitalWifdukegpHKYAGBCJHT5516-21-08 12:43:004.17[facility] HospitalCkfwfnqvxTYCUXVRLFQ2025-23-87 12:43:005.4[facility] HospitalNsbrogzhkIYNTJEXZMD0133-10-57 12:43:00* Test Item Value Reference Range Interpretation Comments INR (test code = INR) 1.05 1 0.85-1.17 [facility] HospitalMaajfxsyyIBHNRYIHTP1502-03-24 12:43:00* Test Item Value Reference Range Interpretation Comments PT (test code = PT) 13.7 s 12.0-14.7 [facility] GCYCK9873-76-96 12:06:00None Seen (09/02/17 6:06 AM) [facility] LCZIY6031-18-60 12:06:00Performed (09/02/17 6:06 AM) [facility] EXFJH1885-26-23 12:06:00Moderate *ABN*(09/02/17 6:06 AM) [facility] WFGCU8331-28-36 12:06:0015 [facility] STOOL 2017-09-02 12:06:00* Test Item Value Reference Range Interpretation Comments UA pH (test code = UA pH) 7.0 1 5.0-8.0 [facility] JKPLE3734-47-78 12:06:00Negative (09/02/17 6:06 AM) [facility] YDDVJ9048-86-34 12:06:00Large *ABN*(09/02/17 6:06 AM) [facility] DJDFO3510-70-06 12:06:00Marked *ABN*(09/02/17 6:06 AM)MH [facility] WAVWH0093-15-35 12:06:00* Test Item Value Reference Range Interpretation Comments UA Spec Grav (test code = UA Spec Grav) 1.010 1 MH [facility] RTGQD7298-29-27 12:06:00Negative (09/02/17 6:06 AM)MH [facility] NUSVT4503-21-45 12:06:004.0MH [facility] STOOL 2017-09-02 12:06:00Positive *ABN*(09/02/17 6:06 AM)MH [facility] STOOL 2017-09-02 12:06:00Red *ABN*(09/02/17 6:06 AM) SoutheastCARDIAC ENZYMES 2017-08-15 23:06:00<0.02MH SoutheastCARDIAC UAMWIPA3437-75-69 23:06:00* Test Item Value Reference Range Interpretation Comments CK MB Index (test code = CK MB Index) 1.5 1 <=2.5 MH SoutheastCARDIAC SUQXPBI0070-78-83 23:06:001.9 SoutheastCARDIAC ENZYMES 2017-08-15 23:06:96517MN SoutheastCHEM NCPCD0063-18-16 23:06:0077 [facility] CHEM YCZVK7104-02-16 23:06:007.9 SoutheastCHEM FDZFQ3353-16-35 23:06:0028 [facility]CHEM ETRVY1109-33-65 23:06:003.2MH SoutheastCHEM SHCCS2061-55-33 23:06:008.0 [facility]CHEM CQNTV3135-74-49 23:06:43882FT SoutheastCHEM PANEL 2017-08-15 23:06:91724AW SoutheastCHEM RLTTJ2799-64-02 23:06:0025 [facility] CHE[facility] BTDEB1305-74-88 23:06:0021 SoutheastCHEM YFFXB6124-44-14 23:06:00* Test Item Value Reference Range Interpretation Comments B/C Ratio (test code = B/C Ratio) 13 1 6-25 SoutheastCHEM RQTRS2514-45-25 23:06:0012.0 [facility]CHEM CFAYX2578-45-49 23:06:000.5 SoutheastCHEM MITZE6492-96-81 23:06:00* Test Item Value Reference Range Interpretation Comments A/G Ratio (test code = A/G Ratio) 0.7 1 0.7-1.6 [facility]CHEM IWVPE1169-32-97 23:06:004.8 [facility]CHEM CIIZY5608-77-54 23:06:001.03[facility] IFCOD4438-24-14 23:06:0013 SoutheastCHEM PANEL 2017-08-15 23:06:004.0 [facility]CHEM FLCHI0286-42-03 23:06:79220JJ [facility] CHE[facility] ECXTB9714-68-11 23:06:0078 McsrwqtruHCKPGQCYHB7432-69-92 23:06:000.6M UepoaymzuWZFXLZJOKE0387-58-15 23:06:001.7 VxavrwjexSTASDLDRTB3286-53-40 23:06:004.4 GqcntunimUVCGEIBMGR8754-37-34 23:06:0010.2M [facility]HEMATOLOGY 2017-08-15 23:06:001.6M DpabhjvapMAWHSKESJI4884-07-41 23:06:000.1M [facility] GIOTFUAAWH8366-20-83 23:06:000.7 VonsavjkaWTDSONMRRH2694-96-32 23:06:0023.6M EoervlzoqVRDNHUWBIQ4571-26-12 23:06:0063.9 MaleewsvpJJTDNKEULM5870-81-21 23:06:00* Test Item Value Reference Range Interpretation Comments MCH (test code = MCH) 31.6 pg 27.0-31.0 PqczlmkmuMONXQSZIZP9982-83-85 23:06:0095.7 RugdksvzbOXPNGCWLOY4699-64-62 23:06:0033.0 WrxvaxuhaMOZYXZRTSY1114-35-54 23:06:007.2M [facility] 2017-08-15 23:06:0015.9 BccaxvwfxDNEFOQVLLI7744-88-91 23:06:90331NF[facility] ISUFGCNHEI3534-31-02 23:06:0013.3M OoajjsuezLFFDRZWFUU7491-71-56 23:06:0040.2M DishjswrlAXGKXQREKR1400-24-03 23:06:004.20 OpmmkenyyDGKLEAETMX6435-18-72 23:06:006.8 [facility] XSKPA4544-18-13 22:59:003 [facility] BIHQJ9631-81-89 22:59:001MH [facility] QNNIO8838-92-21 22:59:00Negative *NA*(08/15/17 4:59 PM) [facility] DMSCP3599-06-79 22:59:00Negative (08/15/17 4:59 PM) [facility] SMRIC0241-25-85 22:59:00Negative (08/15/17 4:59 PM) [facility] UXITY6054-08-93 22:59:00Small *ABN*(08/15/17 4:59 PM) [facility] DNIUD0971-23-44 22:59:00* Test Item Value Reference Range Interpretation Comments UA pH (test code = UA pH) 6.0 1 5.0-8.0 MH [facility] AFOVZ5496-06-42 22:59:00* Test Item Value Reference Range Interpretation Comments UA Spec Grav (test code = UA Spec Grav) 1.009 1 [facility] ADUVL4340-72-27 22:59:00Clear (08/15/17 4:59 PM) [facility] CHE[facility] GNTSY3988-46-01 15:15:0091 SoutheastCHEM SNWIO5088-02-19 15:15:000.9 RdahkvsnvSCQOXUKHEPQU7192-76-82 09:38:0010.9 HnukbnxbtGEWVDYBBQSLL5504-38-43 09:38:0097 SwijryuqpAYVMBRUGFTYR1437-01-91 09:38:008.1M SoutheastELECTROLYTES 2017-04-30 09:38:0027 EpxzqghziNTQPXSFTELOB7227-54-40 09:38:003.9 [facility] ATCHMIQGYCKI1627-18-27 09:38:38627QN KtaghwgeiEISCDNLAOHMC1341-50-19 09:38:97805 OdzjxfqbzRTGXZJLCYLBB3173-88-17 09:38:0015 MdfoqjqbvOKOPADGURVGU8031-04-56 09:38:000.76 NisysujxoZHJLETRQVPEO4167-62-14 09:38:0084 [facility]HEMATOLOGY 2017-04-30 09:38:0033.2M BqahcemfhBIDGQUZQJI9716-14-63 09:38:00* Test Item Value Reference Range Interpretation Comments MCH (test code = MCH) 30.2 pg 27.0-31.0 YnmbgguebUBIUVHTSHA5742-63-55 09:38:0090.9 FjylcstreNBKMNGJEDU2959-23-61 09:38:0034.4 UabcdjsvvFQNCMOAVAO1042-39-52 09:38:007.0 [facility] 2017-04-30 09:38:81293VC KtnumutlbFGIILGWJTU9125-60-29 09:38:0015.7 [facility] HESLLQVCXV5593-81-73 09:38:0011.4 HyjmbvywfUIMNKDDOWH2089-26-97 09:38:003.78MH LfjwzscedMFBXYOLKUZ4069-55-42 09:38:005.6MH CpkpzmjbaBNWUVNWFCC1622-09-94 09:38:000.5 VajnmpfsxWZVMFYVIQC4077-20-08 09:38:000.2MH [facility]HE[facility]OLOGY 2017-04-30 09:38:001.5 NfvhizxniZOJFSLZQSP2727-49-82 09:38:008.9 [facility] MUSEHMRMVE6150-98-57 09:38:0026.3MH BnqcnetdlKCSXLEHYZO4219-34-03 09:38:0059.6MH KesxtjxaeHCHFQNIRNG9329-13-77 09:38:003.3MH AutsprnpdGGLKGOGLHH5307-31-30 09:38:000.8 EfuwyfslePNQQHUYXQW6193-96-55 09:38:004.4 SoutheastCHEM PANEL 2017-04-29 16:58:000.95MH SoutheastCHEM GAKSF9607-64-48 16:58:0015MH [facility] CHE[facility] UYGTM4552-95-73 16:58:0096 [facility]CHEM DQYQH5348-18-70 16:58:008.7 [facility]CHEM ARLEZ3501-82-90 16:58:0030 [facility]CHEM UMLWZ3740-93-13 16:58:99625AZ [facility]CHEM DGLMR7270-82-30 16:58:003.7 SoutheastCHEM PANEL 2017-04-29 16:58:20181OG SoutheastCHEM VRPIH3508-00-08 16:58:0085 [facility] DNNLC0548-10-17 16:58:0010.7 LebhhqymyUTPEGHTJOE2676-69-76 16:58:0025.1M PlblqcgweULBVISRCPX8141-92-14 16:58:0064.2M EhdewqmnaTLQUFDWHBT4027-09-83 16:58:007.0 ZdohepqsnIKXRFZOGWZ5701-03-31 16:58:000.9 [facility] 2017-04-29 16:58:003.9 AhsvxjyhbGQPNGBZRMS6811-66-31 16:58:002.8[facility] YXXYLVDNFP5466-45-22 16:58:001.5 UznpoorayOFLSULKSNO3014-34-70 16:58:000.2MH RtxzcnjsbBTXFQZZQYB6407-62-34 16:58:000.1MH MptwoleenQOIGEYMRKE0840-58-24 16:58:000.4 MoejczsgiXSAJPEAHZW6609-83-25 16:58:81991CR [facility]HEMAT[facility]Y 2017-04-29 16:58:0015.7 BlevindhhIPSCTVQKNQ8631-12-00 16:58:006.9[facility] UKPSIALIMJ0968-18-04 16:58:0032.7 ZsksteexjITVJBWGTRH5647-11-97 16:58:004.34 ToqmeiwrsJDCXLXDYAG2342-56-67 16:58:006.0 NkxtvlvthYTUOBPBPZA0321-34-01 16:58:0039.6MH MucxabjcaDLUUIWZMOI8037-73-66 16:58:0091.3MH [facility]HEMATOLOGY 2017-04-29 16:58:00* Test Item Value Reference Range Interpretation Comments MCH (test code = MCH) 29.8 pg 27.0-31.0 FsjokcnkqYYALCKXVMV8772-57-07 16:58:0013.0 WuggaymrhCELVCX7768-15-69 16:58:0029[facility] HospitalQlkfoahfpSMTYSN4056-62-47 16:58:0096[facility] HospitalUwgnscwfpHSGKHA8876-11-19 16:58:71245SC KzqlwsaovQMJTLL6289-56-90 16:58:80331RR YbuvyfgdsKTIHOV0508-37-45 16:58:0059 BniecpquvNSEOHC0755-54-48 16:58:003.12[facility] 2017-[facility]-26 16:06:00Surgical Pathology Report Case: [id number] Authorizing Provider: Aaron Mccullough Collected: 02/22/2017 1637 Ordering Location: [address] Received: 02/24/2017 0912 Service Pathologist: Lela Saravia MD Specimen: Biopsy, Esophagus LOWER ESOPHAGUS, ENDOSCOPIC BIOPSY - SQUAMOUS MUCOSA WITH MILD EDEMA - NO FEATURES OF REFLUX OR EOSINOPHILIC ESOPHAGITIS SEEN - NO COLUMNAR MUCOSA PRESENT - NO DYSPLASIA OR MALIGNANCY SEENThe case was presented at the departmental consensus conference on 02/26/17 Signing Pathologist Direct Phone Line: [phone] signed by Lela Saravia MD on 02/26/2017 at 4:06 FT53957FrcgiiikqKtvsvlhkg biopsyReceived in formalin labeled "biopsy, esophagus" are four fragments measuring 0.9 x 0.8 x 0.1 cm in aggregate. Entirely submitted A1. DB/plPERFORMEDCOMPREHENSIVE METABOLIC JNAWV2375-03-11 06:01:00* Test Item Value Reference Range Interpretation [...] DIALYSIS PATIENTS. CBC W/PLT COUNT & AUTO UHLIQZOACPPT2226-52-73 05:28:00* Test Item Value Reference Range Interpretation [...] (test code = 2801) 0 % 0-1 TRRKRYVOBY4931-64-06 06:49:00* Test Item Value Reference Range Interpretation Comments PHOSPHORUS (BEAKER) (test code = 604) 4.0 mg/dL 2.3-4.7 NKLWSUQUK7326-18-83 06:49:00* Test Item Value Reference Range Interpretation Comments MAGNESIUM (BEAKER) (test code = 627) 1.9 mg/dL 1.6-2.6 COMPREHENSIVE METABOLIC GMEYZ5586-52-12 06:49:00* Test Item Value Reference Range Interpretation [...] DIALYSIS PATIENTS. CBC W/PLT COUNT & AUTO GLFMHCNLLZQE9828-58-94 05:59:00* Test Item Value Reference Range Interpretation [...] (test code = 2801) 0 % 0-1 PT/ZZGV0177-06-82 03:59:00* Test Item Value Reference Range Interpretation [...] 2.5-3.5 for pat ients with mechanical heart valves.OXBDNE5599-48-94 03:54:00* Test Item Value Reference Range Interpretation Comments LIPASE (BEAKER) (test code = 749) 38 U/L 8-78 MYMOFRQ1753-30-98 03:54:00* Test Item Value Reference Range Interpretation Comments AMYLASE (BEAKER) (test code = 349) 68 U/L 25-125 COMPREHENSIVE METABOLIC CJIXO6681-72-63 03:54:00* Test Item Value Reference Range Interpretation [...] NOT APPLICABLE FOR DIALYSIS PATIENTS. HEPATIC FUNCTION VTFOS9642-19-02 03:54:00* Test Item Value Reference Range Interpretation [...] U/L 6-55 CBC W/PLT COUNT & AUTO UWZRSUAOHJYY2714-98-40 03:41:00* Test Item Value Reference Range Interpretation [...] = 2801) 0 % 0-1 HEMOGLOBIN AND EGYVEEKOGQ5867-99-12 11:59:00* Test Item Value Reference Range Interpretation Comments HEMOGLOBIN (BEAKER) (test code = 410) 10.0 GM/DL 13.7-17.5 L HEMATOCRIT (BEAKER) (test code = 411) 31.5 % 40.1-51.0 L TISSUE ULOY8679-27-37 11:34:00Surgical Pathology Report Case: [id number] Authorizing Provider: Leeanna Ma MD Collected: 02/03/2017 1350 Ordering Location: [address] Received: 02/03/2017 3931 Pathologist: Lela Saravia MD Specimens: A) - Antrum, bx r/o h pylori evaluate atrophic gastritis B) - Gastric, BX R/O H PYLORI EVALUATE ATROPHIC GASTRITIS This addendum is issued to report the result of immunohistochemical stain for Helicobacter pylori on specimen A: - NegativeCPT code: 59677Hxziqvtz electronically signed by Lela Saravia MD on [...] STAIN - NEGATIVE FOR DYSPLASIA OR MALIGNANCY 26020 X 2; 38351 X 2Melena, rule out H. Pylori, rule [...] the diagnostic report above:WARTHIN-STARRY X 2HEMOGLOBIN AND LFNZLMAYLP2181-46-45 04:18:00* Test Item Value Reference Range Interpretation [...] 0 /100 WBC 0 -0 HEMOGLOBIN AND MLTHZJXEDW6503-55-62 21:26:00* Test Item Value Reference Range Interpretation Comments HEMOGLOBIN (BEAKER) (test code = 410) 7.7 GM/DL 13.7-17.5 L HEMATOCRIT (BEAKER) (test code = 411) 24.6 % 40.1-51.0 L URPILOTV2311-72-69 19:21:00* Test Item Value Reference Range Interpretation [...] 8 % 20-5 5 L HEMOGLOBIN AND UQLVUAGOQV9162-88-47 18:44:00* Test Item Value Reference Range Interpretation Comments HEMOGLOBIN (BEAKER) (test code = 410) 8.1 GM/DL 13.7-17.5 L HEMATOCRIT (BEAKER) (test code = 411) 25.3 % 40.1-51.0 L HEMOGLOBIN AND MPKYBIHGPT0326-09-40 10:09:00* Test Item Value Reference Range Interpretation Comments HEMOGLOBIN (BEAKER) (test code = 410) 8.3 GM/DL 13.7-17.5 L HEMATOCRIT (BEAKER) (test code = 411) 27.0 % 40.1-51.0 L BASIC METABOLIC TWKGO4359-06-61 04:32:00* Test Item Value Reference Range Interpretation [...] GFR IS NOT APPLICABLE FOR DIALYSIS PATIENTS. HYMEPEVPZU9932-83-85 04:30:00* Test Item Value Reference Range Interpretation Comments PHOSPHORUS (BEAKER) (test code = 604) 2.8 mg/dL 2.3-4.7 UIIIJGFJE6351-08-09 04:30:00* Test Item Value Reference Range Interpretation Comments MAGNESIUM (BEAKER) (test code = 627) 1.9 mg/dL 1.6-2.6 PT/AENH6037-07-42 04:20:00* Test Item Value Reference Range Interpretation [...] for pat ients with mechanical heart valves.PROTHROMBIN TIME/CRI0857-63-15 04:19:00* Test Item Value Reference Range Interpretation [...] 0 /100 WBC 0 -0 HEMOGLOBIN AND SWQBPWETDQ5703-88-15 04:09:00* Test Item Value Reference Range Interpretation Comments HEMOGLOBIN (BEAKER) (test code = 410) 8.0 GM/DL 13.7-17.5 L HEMATOCRIT (BEAKER) (test code = 411) 25.2 % 40.1-51.0 L HEMOGLOBIN AND KCUOWYJCPE8080-16-16 20:58:00* Test Item Value Reference Range Interpretation Comments HEMOGLOBIN (BEAKER) (test code = 410) 8.0 GM/DL 13.7-17.5 L HEMATOCRIT (BEAKER) (test code = 411) 25.6 % 40.1-51.0 L HEMOGLOBIN AND GOLWVQKITV9018-61-53 12:21:00* Test Item Value Reference Range Interpretation Comments HEMOGLOBIN (BEAKER) (test code = 410) 8.7 GM/DL 13.7-17.5 L HEMATOCRIT (BEAKER) (test code = 411) 27.6 % 40.1-51.0 L HEMOGLOBIN AND RELUUCLDCS4085-40-14 05:58:00* Test Item Value Reference Range Interpretation Comments HEMOGLOBIN (BEAKER) (test code = 410) 8.3 GM/DL 13.7-17.5 L HEMATOCRIT (BEAKER) (test code = 411) 26.3 % 40.1-51.0 L OHWRUMLIDA1525-41-60 05:55:00* Test Item Value Reference Range Interpretation Comments PHOSPHORUS (BEAKER) (test code = 604) 2.8 mg/dL 2.3-4.7 RUBRGNGYA7110-94-04 05:55:00* Test Item Value Reference Range Interpretation Comments MAGNESIUM (BEAKER) (test code = 627) 2.0 mg/dL 1.6-2.6 BASIC METABOLIC YCPWF3402-65-98 05:55:00* Test Item Value Reference Range Interpretation [...] GFR IS NOT APPLICABLE FOR DIALYSIS PATIENTS. PT/QBVB5238-02-13 05:50:00* Test Item Value Reference Range Interpretation [...] pat ients with mechanical heart valves.HEMOGLOBIN AND JCSTINHVSF1872-16-96 00:18:00 * Test Item Value Reference Range Interpretation Comments HEMOGLOBIN (BEAKER) (test code = 410) 8.2 GM/DL 13.7-17.5 L HEMATOCRIT (BEAKER) (test code = 411) 26.0 % 40.1-51.0 L HEMOGLOBIN AND RFQJYUERQN2853-78-52 18:59:00* Test Item Value Reference Range Interpretation Comments HEMOGLOBIN (BEAKER) (test code = 410) 8.9 GM/DL 13.7-17.5 L HEMATOCRIT (BEAKER) (test code = 411) 28.1 % 40.1-51.0 L HEMOGLOBIN AND QGPOUCEOMH2669-68-28 13:15:00* Test Item Value Reference Range Interpretation [...] = 413) 0 /100 WBC 0 -0 XSHAKUGJIQ8532-97-19 06:41:00* Test Item Value Reference Range Interpretation Comments PHOSPHORUS (BEAKER) (test code = 604) 2.9 mg/dL 2.3-4.7 WXDVDJDCB9442-28-95 06:41:00* Test Item Value Reference Range Interpretation Comments MAGNESIUM (BEAKER) (test code = 627) 2.3 mg/dL 1.6-2.6 BASIC METABOLIC WNICJ3848-62-01 06:41:00* Test Item Value Reference Range Interpretation [...] NOT APPLICABLE FOR DIALYSIS PATIENTS. HEMOGLOBIN AND KXLYCTNIRP6616-40-74 06:09:00* Test Item Value Reference Range Interpretation Comments HEMOGLOBIN (BEAKER) (test code = 410) 8.1 GM/DL 13.7-17.5 L HEMATOCRIT (BEAKER) (test code = 411) 25.3 % 40.1-51.0 L PROTHROMBIN TIME/LND1006-65-11 06:07:00* Test Item Value Reference Range Interpretation Comments PROTIME (BEAKER) (test code = 759) 13.9 seconds 11.7-14.7 INR (BEAKER) (test code = 370) 1.1 <=5.9 RECOMMENDED COUMADIN/WARFARIN INR THERAPY RANGESSTANDARD DOSE: 2.0 - 3.0 Inclu prabhakar: PROPHYLAXIS for venous thrombosis, systemic embolization; TREATMENT for marian ous thrombosis and/or pulmonary embolus.HIGH RISK: Target INR is 2.5-3.5 for pat ients with mechanical heart valves.PT/[id number] 06:07:00* Test Item Value Reference Range Interpretation [...] 2.5-3.5 for pat ients with mechanical heart valves.MVSZ3716-32-02 00:56:00* Test Item Value Reference Range Interpretation Comments PARTIAL THROMBOPLASTIN TIME (BEAKER) (test code = 760) 28.2 seconds 22.5-36.0 PROTHROMBIN TIME/[id number] 00:55:00* Test Item Value Reference Range Interpretation Comments PROTIME (BEAKER) (test code = 759) 14.3 seconds 11.7-14.7 INR (BEAKER) (test code = 370) 1.1 <=5.9 RECOMMENDED COUMADIN/WARFARIN INR THERAPY RANGESSTANDARD DOSE: 2.0 - 3.0 Inclu prabhakar: PROPHYLAXIS for venous thrombosis, systemic embolization; TREATMENT for marian ous thrombosis and/or pulmonary embolus.HIGH RISK: Target INR is 2.5-3.5 for pat ients with mechanical heart valves.[id number] 00:54:00* Test Item Value Reference Range Interpretation Comments PHOSPHORUS (BEAKER) (test code = 604) 3.6 mg/dL 2.3-4.7 [id number] 00:54:00* Test Item Value Reference Range Interpretation Comments MAGNESIUM (BEAKER) (test code = 627) 2.3 mg/dL 1.6-2.6 BASIC METABOLIC [id number] 00:54:00* Test Item Value Reference Range Interpretation [...] NOT APPLICABLE FOR DIALYSIS PATIENTS. HEMOGLOBIN AND [id number] 00:34:00* Test Item Value Reference Range Interpretation [...] 0 -0 CBC W/PLT COUNT & AUTO [id number] 00:34:00* Test Item Value Reference Range Interpretation [...] 0 % 0-1 FOREARM RIGHT 2 VIEW [place] [id number] Patient Name: TERESA WARD MR #: [id number] : 1955 Age/Sex: 61/M Req #: [id number] Adm Physician: Ordered by: BALDO MONDRAGON MD Report #: [id number] Location: ER Room/Bed: Procedure: [id number] DX/FOREARM RIGHT 2 VIEW Exam Da te: [...] MD 29 Transcribed By: CADEN on 04/25/171929 UI SOFTWARE DEVELOPER Y TO: BALDO MONDRAGON MD LOWER LEG RIGHT [place] [id number] Patient Name: TERESA WARD MR #: [id number] : 1955 Age/Sex: 61/M Req #: [id number] Adm Physician: Ordered by: BALDO MONDRAGON MD Report #: [id number] Location: Room/Bed: Procedure: [id number] DX/LOWER LEG RIGHT Exam Date: Exam Time: [...]
--- NOTE | 2019-11-25 19:00 | NUR ---
report given to Sergio RIDDLE
[2019-11-25 20:02] LABS: CREATINE KINASE MB 1.8 ng/mL (0-5.0)
[2019-11-25] MEDS ORDERED: ACETAMINOPHEN 325 MG TAB PO ONE ×2 (22:30)
[2019-11-26 03:49] LABS: CHOL/HDL RATIO 2.3 (3.9-4.7)
--- NOTE | 2019-11-26 04:01 | Consultation ---
DATE OF CONSULTATION: 11/25/2019 REASON FOR CONSULT: Cardiomyopathy, congestive heart failure, consider ICD. 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 Gil in his office. He has congestive heart failure class 3 with worsening symptoms, reason why he presented to the ER today with complaint of chest pain and shortness of breath, currently receiving medical therapy. He has a left bundle branch block with QRS duration borderline 110-120. There is an EKG from Dr. Gil's office demonstrating 120 milliseconds. No history of syncope. No cardiac arrest. REVIEW OF SYSTEMS: CONSTITUTIONAL: Negative. CARDIOVASCULAR: As per HPI. RESPIRATORY: Negative. GASTROINTESTINAL: Negative. GENITOURINARY: Negative. MUSCULOSKELETAL: Negative. EYES: Negative. ENT: Negative. ALLERGY/IMMUNOLOGY: Negative. PSYCHIATRIC: Negative. PAST MEDICAL HISTORY: Cardiomyopathy. PAST SURGICAL HISTORY: He denies. FAMILY HISTORY: No premature coronary artery disease. SOCIAL HISTORY: Denies alcohol or smoking. PHYSICAL EXAMINATION: VITAL SIGNS: Blood pressure 110/60, pulse is 70, respirations 20, O2 saturations 98%. GENERAL: No acute distress. HEENT: Moist mucous membranes. CARDIOVASCULAR: Regular. RESPIRATORY: Clear with crackles at bases. ABDOMEN: Soft, nontender. MUSCULOSKELETAL: 2+ distal pulses. NEUROLOGIC: No focal deficits. SKIN: No lesions. EXTREMITIES: 2+ pitting edema on lower extremities. PSYCHIATRY: Normal thought process. DIAGNOSTIC DATA: EKG from Dr. Gil's office, QRS duration of 120. Left bundle branch block. Sinus rhythm. IMPRESSION: 1. 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 2. Congestive heart failure, class 3. 3. Left bundle branch block with borderline QRS duration 120 milliseconds. RECOMMENDATIONS: I had a long discussion with the patient, went over nature of the disease. He will benefit from ICD for primary prevention of sudden cardiac , but also due to his refractory symptoms, he will benefit from MANAGER SHAREPOINT. This was discussed in detail with the patient, benefits and risks. He voices understanding and wishes to proceed. We will plan for a Bi-V ICD. Thank you for letting us participate in Mr. Albert's healthcare. MD IAN Henning/SIGIFREDO /[id number]
[2019-11-26 04:04] LABS: CREATINE KINASE MB 1.7 ng/mL (0-5.0)
--- NOTE | 2019-11-26 06:35 | NUR ---
DR LYNN PAGED TO CLARIFY ORDERS REGARDING POSSIBLE PROCEDURE THIS AM.
--- NOTE | 2019-11-26 08:41 | NUR ---
Pt education provided regarding PM implantation.
--- NOTE | 2019-11-26 09:22 | Pre Op History & Physical ---
INDICATION: Shortness of breath and palpitations. HISTORY OF PRESENT ILLNESS: Mr. Albert is a 64-year-old gentleman with a history of coronary artery disease, prior right coronary artery stent placement, abdominal aortic aneurysm status post repair, with known type 2 endoleak, which is stable. He also has ischemic cardiomyopathy, last ejection fraction 30% with intraventricular conduction delay on his EKG. He recently underwent coronary angiography. He has been feeling extremely short of breath with palpitations over the last few days. He comes to the emergency room at [facility]. O2 saturations of 88%, heart rate 108, blood pressure of 107/65. He received some intravenous Lasix in the emergency room and feels better since then. PAST MEDICAL HISTORY: As listed above. SOCIAL HISTORY: The patient used to smoke in the past. Does not smoke currently. Drinks alcohol on a social basis, but not excessively. MEDICATIONS: Reviewed from the nursing notes. REVIEW OF SYSTEMS: Negative except as dictated in history of present illness. PHYSICAL EXAMINATION: VITAL SIGNS: Afebrile, heart rate is 102, blood pressure 108/65, O2 saturation 89%. CARDIOVASCULAR: Regular rhythm. Systolic murmur. S3 gallop. LUNGS: Occasional fine crackles bilaterally in both lung bases. Jugular venous pulse is 15 cm. No carotid bruit. ABDOMEN: Distended, soft with abdominal bruit. EXTREMITIES: Pedal pulses are 1+. No edema. NEUROLOGIC: The patient is awake, alert, in mild distress. Neurological exam is nonfocal. PSYCHIATRIC: The patient is alert and oriented. DIAGNOSTIC DATA: Electrocardiogram shows sinus rhythm with interventricular conduction delay, QRS with [address] depression. Labs were reviewed. Cardiac troponin is pending. ASSESSMENT: 1. Ofmpt-aw-tmlikst systolic heart failure. 2. Coronary artery disease with unstable angina. 3. Abdominal aortic aneurysm, status post repair. 4. Intraventricular conduction delay. PLAN: Mr. Albert has acute exacerbation of his systolic heart failure. He has received intravenous furosemide. He is feeling better. We will continue his medications in addition to his beta blockers and HUNG inhibitor. He is on optimal medical therapy for the last several years. His ejection fraction has failed to improve. He has a class 1 indication for cardiac resynchronization defibrillator. The risks, benefits, and alternatives of this procedure were discussed with the patient. He is agreeable for the same. Recent coronary angiogram was reviewed personally by me. Office records and prior medical records were also reviewed. Total time spent 45 minutes. MD TANIA Lomax/SIGIFREDO /[id number]
[2019-11-26] MEDS ORDERED: LIDOCAINE 1% W/EPINEPHRINE 20 ML VIAL ONE ×2 (15:15→16:32)
[2019-11-26] MEDS ORDERED: SODIUM CHLORIDE 0.9% 1000ML 2,000 ML ONE (15:16)
[2019-11-26] MEDS ORDERED: VANCOMYCIN 1GM/NS 250 ML 250 ML ONE ×2 (15:16→17:30)
[2019-11-26] MEDS ORDERED: SODIUM CHLORIDE 0.9% 500ML 500 ML ONE (15:16)
[2019-11-26] MEDS ORDERED: BACITRACIN 50,000 UNIT VIAL ONE (15:16)
[2019-11-26] MEDS ORDERED: FENTANYL CITRATE/PF 100MCG/2 ML INJ ONE (15:17)
[2019-11-26] MEDS ORDERED: MIDAZOLAM HCL 2 MG/2 ML VIAL ONE ×4 (15:17→17:00)
[2019-11-26] MEDS ORDERED: DIPHENHYDRAMINE HCL INJ 50 MG/ML VIAL ONE (17:24)
[2019-11-26 18:31] VITALS: BP 174/55
--- NOTE | 2019-11-26 19:07 | Diagnostic Imaging Report ---
Examination: Single AP view of the chest. COMPARISON: Portable chest 11/25/2019 INDICATION: Status post ICD today IMPRESSION: 1. Lines and Tubes: Interval placement of left upper chest cardiac device, with the distal tip is projecting in the right atrium, right ventricle and coronary sinus. 2. Mild perihilar interstitial opacities, likely reflecting mild interstitial edema. No consolidation or definite effusion is identified. 3. Enlarged cardiac silhouette, stable Central pulmonary venous congestion. 4. No acute bony abnormalities. Signed by: Dr. Jas Brian M.D. on 11/26/2019 7:04 PM
[2019-11-26 20:00] VITALS: BP 162/58
--- NOTE | 2019-11-26 22:12 | NUR ---
SPOKE TO DR. LYNN REGARDING PT C/O PAIN TO LEFT UPPER CHEST SURGICAL SITE 04/15 AND BP 175/56. NEW ORDERS RECEIVED TO CONTINUE HOME MEDS AND IV MORPHINE 4MG Q4H PRN
[2019-11-26] MEDS ORDERED: ATENOLOL 50 MG TAB PO SCH (22:15)
[2019-11-26] MEDS: ASPIRIN 81 MG CHEW TAB PO SCH (22:15)
[2019-11-26] MEDS: METOPROLOL SUCCINATE 50 MG TAB XL PO SCH (22:35)
[2019-11-26] MEDS: MORPHINE SULFATE INJ 4 MG/ML INJ 1ML IV PRN (22:35)
--- NOTE | 2019-11-26 23:32 | NUR ---
SPOKE TO DR. LYNN REGARDING PT C/O PAIN 03/16 FROM 04/15 AFTER GIVING PRN MORPHINE. NEW ORDER RECEIVED FOR NORCO 7.5MG PO Q4H PRN.
[2019-11-26] MEDS: HYDROCODONE/APAP 7.5MG-325MG 1 EA TAB PO PRN (23:51)
[2019-11-27] VITALS: BP 158/67
[2019-11-27 00:43] VITALS: BP 158/67
--- NOTE | 2019-11-27 01:00 | Operative Report ---
DATE OF PROCEDURE: 11/26/2019 SURGEON: Sidney Linda MD PREPROCEDURE DIAGNOSES: 1. 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 2. Congestive heart failure, class 3. 3. Left bundle branch block. QRS duration 120 milliseconds. POSTPROCEDURE DIAGNOSES: 1. 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 2. Congestive heart failure, class 3. 3. Left bundle branch block. QRS duration 120 milliseconds. ESTIMATED BLOOD LOSS: 10 mL. COMPLICATIONS: None. PROCEDURES PERFORMED: 1. Biventricular cardiac defibrillator placement. 2. Moderate sedation. Moderate conscious sedation was provided under my direct supervision by a sedation trained nurse. Sedation approximate time 45 minutes, Versed and fentanyl. There were no complications. See sedation report for details. DESCRIPTION OF PROCEDURE: After informed consent was obtained, the patient was brought to the electrophysiology laboratory in a fasting, nonsedated state. Area over the chest was prepped and draped in the usual sterile fashion. Moderate sedation and prophylactic antibiotics were given. 1% lidocaine was used as local anesthetic and a 3 cm skin incision was made in the left subclavicular area. Electrocautery, sharp and blunt dissection were used to bridge the muscular fascia and a pocket was created for event implantation of the device. Vascular access was obtained x3 in the left axillary vein using modified Seldinger technique under fluoroscopic guidance. Three sheaths were placed. The right ventricular lead was advanced to the RV apex. R-waves 16, pacing 0.5 at 0.5, impedance 518, then the coronary sinus cannulated using AL2 catheter and Wholey wire. The coronary sinus angiogram demonstrated a good posterolateral branch successfully cannulated, pacing pressure 0.2 at 0.5, impedance 800, no phrenic stimulation. Then atrial lead to the right atrial appendage, P-wave 4, pacing 0.4 at 0.5, impedance 720. Sheaths were removed from the body. Leads were secured to the fascia using Ethibond. Pocket was irrigated with antibiotic solution using the pulse byproducts extractor. Hemostasis was meticulous. Leads connected to the device and entire system placed in the pocket. We used vancomycin powder in the pocket. Incision was closed using absorbable sutures and Dermabond. The patient tolerated procedure well. Procedure was then complete. SUMMARY OF HARDWARE IMPLANTED: The new defibrillator is [employer], serial #[id number]. The atrial lead is [employer] [id number]. Right ventricular lead is [employer] [id number]. Left ventricular lead is [employer] [id number]. IMPRESSION: Successful biventricular cardiac defibrillator placement via left axillary vein. PLAN: 1. Routine postop monitoring on telemetry bed. 2. Chest x-ray. 3. Follow up in 2 weeks. MD IAN Henning/MODL /[id number]
[2019-11-27] MEDS: MORPHINE SULFATE INJ 4 MG/ML INJ 1ML IV PRN (03:10)
[2019-11-27 04:00] VITALS: BP 167/58
[2019-11-27] MEDS: ASPIRIN 81 MG CHEW TAB PO SCH (08:22)
[2019-11-27 08:23] VITALS: BP 161/46
[2019-11-27] MEDS: METOPROLOL SUCCINATE 50 MG TAB XL PO SCH (08:24)
[2019-11-27] MEDS: HYDROCODONE/APAP 7.5MG-325MG 1 EA TAB PO PRN (08:32)
[2019-11-27 08:37] VITALS: BP 161/46
[2019-11-27] MEDS ORDERED: FUROSEMIDE 40 MG TAB PO SCH (09:00)
[2019-11-27] MEDS ORDERED: ALLOPURINOL 300 MG TAB PO SCH (09:00)
[2019-11-27] MEDS ORDERED: HYDROCHLOROTHIAZIDE 25 MG TAB PO SCH (09:00)
[2019-11-27] MEDS ORDERED: ATORVASTATIN 20 MG TAB PO SCH (09:00)
[2019-11-27] MEDS ORDERED: TAMSULOSIN HCL 0.4 MG CAP PO SCH (09:00)
--- NOTE | 2019-11-30 11:20 | Discharge Summary ---
HOSPITAL COURSE: Mr. Albert is a 64-year-old male, who is well known to our practice and was recently admitted to [facility] due to worsening shortness of breath and also exacerbation of his systolic heart failure. He is now status post AICD placement by Dr. Buchanan yesterday and he is doing well. He reports resolution of his shortness of breath with recent addition of IV diuretics. He also denies any chest pain or any other cardiac problems at this time. His incision surgical site for his ICD is well with a dressing in place and no evidence of hematoma or drainage or signs of infection. Care of incision site discussed with the patient. The patient is agreeable to discharge at this time with followup in the clinic in the next 2 to 3 business days. He has an office visit scheduled for next Friday and his care will continue there during this hospital stay. Dictated by Jessa Marroquin NP MD MARIAMA Lomax/SIGIFREDO /[id number]
== END 2019-11-27 11:10 | disposition home or self-care (01) | DRG 226 ==
LOC: ER 10:45 → ERHOLD 13:06 → MED/SURG 11-26 18:18
PROVIDERS: ADMIT Internal Medicine Interventional Cardiology; ATTEND Internal Medicine Interventional Cardiology
PROC: 0JH609Z Insertion of Cardiac Resynchronization Defibrillator Pulse Generator into Chest Subcutaneous Tissue and Fascia, Open Approach (ICD-10-PCS; principal; 2019-11-26)
PROC: 02HL3KZ Insertion of Defibrillator Lead into Left Ventricle, Percutaneous Approach (ICD-10-PCS; 2019-11-26)
PROC: 02HK3KZ Insertion of Defibrillator Lead into Right Ventricle, Percutaneous Approach (ICD-10-PCS; 2019-11-26)
PROC: 02H63KZ Insertion of Defibrillator Lead into Right Atrium, Percutaneous Approach (ICD-10-PCS; 2019-11-26)
DX: I42.0 Dilated cardiomyopathy (principal); I50.23 Acute on chronic systolic (congestive) heart failure; I25.110 Atherosclerotic heart disease of native coronary artery with unstable angina pectoris; I45.89 Other specified conduction disorders; Z95.5 Presence of coronary angioplasty implant and graft; I71.4 Abdominal aortic aneurysm, without rupture; I44.7 Left bundle-branch block, unspecified
CPT/HCPCS: 33249; 36415; 71045; 75820; 80053; 80061; 81001; 82550; 82553; 83880; 84484; 85025; 87635; 93005; 99152; 99153; 99284; C1769; J1200; J2250; J2270; J3010; J3370; J7030; J7040

== ENCOUNTER 2019-12-04 08:06 | Inpatient (IN) | payer OTHER ==
[~2019-12-04] VITALS: Ht 162.6 cm; Wt 81.6 kg
[2019-12-04] VITALS (16 sets, daily range): BP systolic 70–103; BP diastolic 48–63
[~2019-12-04 08:06] MED LIST changes: +LASIX40 MG PO; +METOPROLOL SUCC50 MG PO
--- NOTE | 2019-12-04 08:20 | NUR ---
runs of vtach, on pads and crash cart already bedside, , rn's x 3. stat amnio per md michelle contacting md cherri.
--- OUTSIDE RECORDS SUMMARY | 2019-12-04 08:21 | XMS REPORT | Clinical Summary ---
Author Author [facility] ict Organization [facility] ict Address Unknown Phone Unavailable Care Team Providers Care Lens Silverer Name Role Phone Sri Patton RN 2 [...] Added automatically from request for antonieta stinson [id number] Left eye pain Encounters Care Team Description [...] 12/17/2018 Office Visit Ophthalmology Jose Luis Sepulveda, [place] Ham Tijerina MD Hyphema after procedure (Primary [...] pain; Hyphema after procedure 12/12/2018 Emergency after 12/03/2018 Social History Date Tobacco Use Types Packs/Day [...] CBC/DIFF STAT 12/12/2018 11:58 AM CDT after 12/03/2018 Results * POCT GLUCOSE POC docked device (12/12/2018 6:07 PM CDT) Glucose POC 97 74 - 106 mg/dL [facility] Specimen Blood Performing Organization Address [facility] one Number [facility] [address] [place] [address] [phone] * ABO/RH CONFIRMATION (12/12/2018 12:33 PM CDT) ABO/RH O POS [facility] Specimen Blood Performing Organization Address [facility] one Number [facility] [address] [place] [address] * Type and Screen (12/12/2018 12:08 PM CDT) Specimen 12/15/2018 23:59 [facility] Expiration ABO/RH O POS [facility] Antibody Screen NEG [facility] Specimen Blood Performing Organization Address [facility] one Number [facility] [address] [place] [address] * POCT BMP POC docked device (12/12/2018 [...] LABORATORY Specimen Blood, venous Performing Organization Address [facility] one Number [facility] [address] [place] [address] [phone] * 12 LEAD EKG (12/12/2018 12:02 PM CDT) [address] 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 Measurements Intervals Winn Rate: 60 P: 55 [place]: 150 QRS: -26 QRSD: 119 T: 76 QT: 469 QTc: 469 Interpretive Statements SINUS RHYTHM POSSIBLE LEFT ATRIAL ENLARGEMENT BORDERLINE LEFT AXIS DEVIATION LEFT VENTRICULAR HYPERTROPHY AND ST-T CHANGE Electronically Signed On 12-12-2018 13:00:27 CDT by Debi Kelley M.D. Specimen Performing Organization Address [facility] one Number [facility] * XRAY CHEST 2 VIEWS (12/12/2018 11:58 AM CDT) Specimen Impressions Performed At IMPRESSION: [facility] Central pulmonary vascular congestion a nd bibasilar [...] 52.2 (H) 35.1 - 43.9 fL [facility] Platelet 101 (L) 150 - 400 [...] 0.35 0.30 - 0.82 K/uL [facility] [place] Eos (Absolute) 0.07 0.04 - 0.54 K/uL [facility] Baso (Absolute) 0.03 0.01 - 0.08 K/uL [facility] Immature Grans 0.03 0.00 - 0.03 K/uL [facility]Abs[facility] Absolute NRBC 0.00 K/uL [facility] Specimen Blood Performing Organization Address [facility] one Number [facility] [address] [place] [address] * PT/INR (12/12/2018 11:58 AM CDT) PT 13.8 11.8 - 15.0 Seconds [facility] INR 1.1 Refer to INR ranges [facility] Comment: LABORATORY 2.0 - 3.0 for moderate intensity anticoagulation 2.5 - 3.5 for high intensity anticoagulation Specimen Blood Performing Organization Address [facility] one Number [facility] [address] [place] [address] after 12/03/2018 Insurance Type Payer Benefit Subscriber ID Effective Phone Address Plan / Dates Group Spontacts OON [employer] xxxxxxxx 2018[facility] [address] [place] [address] LIENS PENDING xxxxxxxxx 2009- [phone] [place] [address] Liability
--- OUTSIDE RECORDS SUMMARY | 2019-12-04 08:21 | XMS REPORT | Clinical Summary ---
Author Author M[facility] Address Unknown Phone Unavailable Care Team Providers Care Project Administrative Assistant Name Role Phone Sharpless PCP Allergies Comments [...] Not on file Results Not on fileafter 12/03/2018 Insurance Payer Benefit Subscriber ID Type Phone Address Plan / Group [employer] MEDICARE MGD WE[employer] xxxxxxxx CARE [employer] Advance Directives For more information, please contact: [address] [address] Date Inactivated Comments Code Status Date Activated 02/23/2017 3:59 PM Full Code 02/21/2017 5:39 AM This code status was determined by: Patient 02/05/2017 2:49 PM Full Code 02/01/2017 10:20 PM This code status was determined by: Patient
--- OUTSIDE RECORDS SUMMARY | 2019-12-04 08:21 | XMS REPORT | Continuity of Care Document ---
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 3.4 1.5 - 8.1 09/02/2017 [facility] HEMATOLOGY Lymphocytes # 1.4 1.0 - 5.5 09/02/2017 [facility] HEMATOLOGY Monocytes # 0.4 0.0 - 0.8 09/02/2017 [facility] HEMATOLOGY Basophils 0.9 0.0 - 1.0 09/02/2017 [facility] HEMATOLOGY Eosinophils 3.9 0.0 - 4.0 09/02/2017 [facility] HEMATOLOGY Eosinophils # 0.2 0.0 - 0.5 09/02/[address] [facility] Lymphocytes 25.0 20.0 - 40.0 09/02/2017 [facility] HEMATOLOGY Monocytes 7.5 2.0 - 12.0 09/02/2017 [facility] HEMATOLOGY Segs 62.7 45.0 - 75.0 09/02/[address] [facility] MCHC 32.9 32.0 - 36.0 09/02/[address] [facility] MCH 31.3 27.0 - 31.0 09/02/[address] [facility] MCV 94.9 80.0 - 94.0 09/02/[address] [facility] Hct 39.6 42.0 - 54.0 09/02/[address] [facility] RDW 14.7 11.5 - 14.5 09/02/2017 [facility] HEMATOLOGY MPV 7.1 7.4 - 10.4 09/02/2017 [facility] HEMATOLOGY Platelet 172 133 - 450 09/02/2017 [facility] HEMATOLOGY Hgb 13.0 14.0 - 18.0 09/02/2017 [facility] HEMATOLOGY RBC 4.17 4.70 - 6.10 09/02/2017 [facility] HEMATOLOGY WBC 5.4 3.7 - 10.4 09/02/2017 [facility] HEMATOLOGY INR 1.05 0.85 - 1.17 09/02/2017 [facility] HEMATOLOGY PT 13.7 12.0 - 14.7 09/02/2017 [facility] URINE AND STOOL UA Bacteria Occasional /HPF None Seen /HPF 09/02/[address] [facility] [address] URINE AND STOOL UA RBC >100 /HPF 0 - 2 09/02/2017 [facility] URINE AND STOOL UA WBC 3-5 /HPF 0 - 5 09/02/2017 [facility] URINE AND STOOL UA Sq Epi None Seen (09/02/17 6:06 AM) Few 09/02/2017 [facility] URINE AND STOOL Micro? Performed (09/02/17 6:06 AM) 09/02/2017 [facility] URINE AND STOOL UA Leuk Est Moderate *ABN* (09/02/17 6:06 AM) Negative 09/02/2017 [facility] URINE AND STOOL UA Ketones 15 09/02/2017 [facility] URINE AND STOOL UA pH 7.0 5.0 - 8.0 09/02/2017 [facility] URINE AND STOOL UA Bili Negative (09/02/17 6:06 AM) Negative 09/02/2017 [facility] URINE AND STOOL UA Blood Large *ABN* (09/02/17 6:06 AM) Negative 09/02/2017 [facility] URINE AND STOOL UA Turbidity Marked *ABN* (09/02/17 6:06 AM) Clear 09/02/2017 [facility] URINE AND STOOL UA Spec Grav 1.010 <=1.030 09/02/2017 [facility] URINE AND STOOL UA Glucose Negative (09/02/17 6:06 AM) Negative 09/02/2017 [facility] URINE AND STOOL UA Protein >=300 mg/dL Negative mg/dL 09/02/[address] [facility] [address] URINE AND STOOL UA Urobilinogen 4.0 0.1 - 1.0 09/02/2017 [facility] URINE AND STOOL UA Nitrite Positive *ABN* (09/02/17 6:06 AM) Negative 09/02/2017 [facility] URINE AND STOOL UA Color Red *ABN* (09/02/17 6:06 AM) Yellow 09/02/2017 [facility] CARDIAC ENZYMES Troponin-I <0.02 0.00 - 0.40 08/15/2017 [facility] CARDIAC ENZYMES CK MB Index 1.5 0.0 - 2.5 08/15/2017 [facility] CARDIAC ENZYMES CK MB 1.9 0.5 - 3.6 08/15/2017 [facility] CARDIAC ENZYMES Total CK 129 12 - 191 08/15/2017 [facility] CHEM PANEL eGFR 77 08/15/2017 Result [...] should be multiplied by the estimated BMI. [facility] CHEM PANEL Calcium Lvl 7.9 8.5 - 10.5 08/15/2017 [facility] CHEM PANEL CO2 28 24 - 32 08/15/2017 [facility] CHEM PANEL Albumin Lvl 3.2 3.5 - 5.0 08/15/2017 [facility] CHEM PANEL Total Protein 8.0 6.4 - 8.4 08/15/2017 [facility] CHEM PANEL Chloride Lvl 106 95 - 109 08/15/2017 [facility] CHEM PANEL Alk Phos 103 39 - 136 08/15/2017 [facility] CHEM PANEL AST 25 0 - 37 08/15/2017 [facility] CHEM PANEL ALT 21 0 - 65 08/15/2017 [facility] CHEM PANEL B/C Ratio 13 6 - 25 08/15/2017 [facility] CHEM PANEL AGAP 12.0 10.0 - 20.0 08/15/2017 [facility] CHEM PANEL Bili Total 0.5 0.2 - 1.3 08/15/2017 [facility] CHEM PANEL A/G Ratio 0.7 0.7 - 1.6 08/15/2017 [facility] CHEM PANEL Globulin 4.8 2.7 - 4.2 08/15/2017 [facility] CHEM PANEL Creatinine Lvl 1.03 0.50 - 1.40 08/15/2017 [facility] CHEM PANEL BUN 13 7 - 22 08/15/2017 [facility] CHEM PANEL Potassium Lvl 4.0 3.5 - 5.1 08/15/2017 [facility] CHEM PANEL Sodium Lvl 142 135 - 145 08/15/2017 [facility] CHEM PANEL Glucose Lvl 78 70 - 99 08/15/2017 [facility] HEMATOLOGY Basophils 0.6 0.0 - 1.0 08/15/2017 [facility] HEMATOLOGY Eosinophils 1.7 0.0 - 4.0 08/15/2017 [facility] HEMATOLOGY Segs-Bands # 4.4 1.5 - 8.1 08/15/2017 [facility] HEMATOLOGY Monocytes 10.2 2.0 - 12.0 08/15/2017 [facility] HEMATOLOGY Lymphocytes # 1.6 1.0 - 5.5 08/15/2017 [facility] HEMATOLOGY Eosinophils # 0.1 0.0 - 0.5 08/15/2017 [facility] HEMATOLOGY Monocytes # 0.7 0.0 - 0.8 08/15/2017 [facility] HEMATOLOGY Lymphocytes 23.6 20.0 - 40.0 08/15/2017 [facility] HEMATOLOGY Segs 63.9 45.0 - 75.0 08/15/2017 [facility] HEMATOLOGY MCH 31.6 27.0 - 31.0 08/15/2017 [facility] HEMATOLOGY MCV 95.7 80.0 - 94.0 08/15/[address] [facility] MCHC 33.0 32.0 - 36.0 08/15/2017 [facility] HEMATOLOGY MPV 7.2 7.4 - 10.4 08/15/2017 [facility] HEMATOLOGY RDW 15.9 11.5 - 14.5 08/15/2017 [facility] HEMATOLOGY Platelet 138 133 - 450 08/15/2017 [facility] HEMATOLOGY Hgb 13.3 14.0 - 18.0 08/15/2017 [facility] HEMATOLOGY Hct 40.2 42.0 - 54.0 08/15/2017 [facility] HEMATOLOGY RBC 4.20 4.70 - 6.10 08/15/2017 [facility] HEMATOLOGY WBC 6.8 3.7 - 10.4 08/15/2017 [facility] URINE AND STOOL UA Urobilinogen <=1.0 mg/dL 0.1 - 1.0 08/15/2017 [facility] URINE AND STOOL UA Color Ltyellow 08/15/2017 [facility] URINE AND STOOL UA Sq Epi None Seen 08/15/2017 [facility] URINE AND STOOL UA RBC 3 0 - 2 08/15/2017 [facility] URINE AND STOOL UA Protein Negative mg/dL Negative mg/dL 08/15/2017 [facility] URINE AND STOOL UA Glucose Negative mg/dL Negative mg/dL 08/15/[address] [facility] [address] URINE AND STOOL UA WBC 1 0 - 5 08/15/2017 [facility] URINE AND STOOL UA Ketones Negative mg/dL Negative mg/dL 08/15/2017 [facility] URINE AND STOOL UA Bili Negative *NA* (08/15/17 4:59 PM) Negative 08/15/2017 [facility] URINE AND STOOL UA Leuk Est Negative (08/15/17 4:59 PM) Negative 08/15/2017 [facility] URINE AND STOOL UA Nitrite Negative (08/15/17 4:59 PM) Negative 08/15/2017 [facility] URINE AND STOOL UA Blood Small *ABN* (08/15/17 4:59 PM) Negative 08/15/2017 [facility] URINE AND STOOL UA pH 6.0 5.0 - 8.0 08/15/2017 [facility] URINE AND STOOL UA Spec Grav 1.009 <=1.030 08/15/2017 [facility] URINE AND STOOL UA Turbidity Clear (08/15/17 4:59 PM) Clear 08/15/2017 [facility] CHEM PANEL eGFR 91 06/12/2017 Result [...] should be multiplied by the estimated BMI. [facility] CHEM PANEL POC Creatinine 0.9 0.5 - 1.4 06/12/2017 [facility] ELECTROLYTES AGAP 10.9 10.0 - 20.0 04/30/2017 [facility] ELECTROLYTES eGFR 97 04/30/2017 Result Comment: [...] should be multiplied by the estimated BMI. [facility] ELECTROLYTES Calcium Lvl 8.1 8.5 - 10.5 04/30/2017 [facility] ELECTROLYTES CO2 27 24 - 32 04/30/2017 [facility] ELECTROLYTES Potassium Lvl 3.9 3.5 - 5.1 04/30/2017 [facility] ELECTROLYTES Sodium Lvl 141 135 - 145 04/30/2017 [facility] ELECTROLYTES Chloride Lvl 107 95 - 109 04/30/2017 [facility] ELECTROLYTES BUN 15 7 - 22 04/30/2017 [facility] ELECTROLYTES Creatinine Lvl 0.7 6 0.50 - 1.40 04/30/2017 [facility] ELECTROLYTES Glucose Lvl 84 70 - 99 04/30/2017 [facility] HEMATOLOGY MCHC 33.2 32.0 - 36.0 04/30/2017 [facility] HEMATOLOGY MCH 30.2 27.0 - 31.0 04/30/2017 [facility] HEMATOLOGY MCV 90.9 80.0 - 94.0 04/30/2017 [facility] HEMATOLOGY Hct 34.4 42.0 - 54.0 04/30/2017 [facility] HEMATOLOGY MPV 7.0 7.4 - 10.4 04/30/2017 [facility] HEMATOLOGY Platelet 164 133 - 450 04/30/2017 [facility] HEMATOLOGY RDW 15.7 11.5 - 14.5 04/30/2017 [facility] HEMATOLOGY Hgb 11.4 14.0 - 18.0 04/30/2017 [facility] HEMATOLOGY RBC 3.78 4.70 - 6.10 04/30/2017 [facility] HEMATOLOGY WBC 5.6 3.7 - 10.4 04/30/2017 [facility] HEMATOLOGY Monocytes # 0.5 0.0 - 0.8 04/30/2017 [facility] HEMATOLOGY Eosinophils # 0.2 0.0 - 0.5 04/30/2017 [facility] HEMATOLOGY Lymphocytes # 1.5 1.0 - 5.5 04/30/2017 [facility] HEMATOLOGY Monocytes 8.9 2.0 - 12.0 04/30/[address] [facility] Lymphocytes 26.3 20.0 - 40.0 04/30/2017 [facility] HEMATOLOGY Segs 59.6 45.0 - 75.0 04/30/2017 [facility] HEMATOLOGY Segs-Bands # 3.3 1.5 - 8.1 04/30/[address] [facility] Basophils 0.8 0.0 - 1.0 04/30/2017 [facility] HEMATOLOGY Eosinophils 4.4 0.0 - 4.0 04/30/2017 [facility] CHEM PANEL Creatinine Lvl 0.95 0.50 - 1.40 04/29/2017 [facility] CHEM PANEL BUN 15 7 - 22 04/29/2017 [facility] CHEM PANEL Glucose Lvl 96 70 - 99 04/29/2017 [facility] CHEM PANEL Calcium Lvl 8.7 8.5 - 10.5 04/29/2017 [facility] CHEM PANEL CO2 30 24 - 32 04/29/2017 [facility] CHEM PANEL Chloride Lvl 101 95 [...] should be multiplied by the estimated BMI. [facility] CHEM PANEL AGAP 10.7 10.0 - 20.0 04/29/2017 [facility] HEMATOLOGY Lymphocytes 25.1 20.0 - 40.0 04/29/2017 [facility] HEMATOLOGY Segs 64.2 45.0 - 75.0 04/29/2017 [facility] HEMATOLOGY Monocytes 7.0 2.0 - 12.0 04/29/2017 [facility] HEMATOLOGY Basophils 0.9 0.0 - 1.0 04/29/2017 [facility] HEMATOLOGY Segs-Bands # 3.9 1.5 - 8.1 04/29/2017 [facility] HEMATOLOGY Eosinophils 2.8 0.0 - 4.0 04/29/2017 [facility] HEMATOLOGY Lymphocytes # 1.5 1.0 - 5.5 04/29/2017 [facility] HEMATOLOGY Eosinophils # 0.2 0.0 - 0.5 04/29/2017 [facility] HEMATOLOGY Basophils # 0.1 0.0 - 0.2 04/29/2017 [facility] HEMATOLOGY Monocytes # 0.4 0.0 - 0.8 04/29/2017 [facility] HEMATOLOGY Platelet 190 133 - 450 04/29/2017 [facility] HEMATOLOGY RDW 15.7 11.5 - 14.5 04/29/[address] [facility] MPV 6.9 7.4 - 10.4 04/29/[address] [facility] MCHC 32.7 32.0 - 36.0 04/29/2017 [facility] HEMATOLOGY RBC 4.34 4.70 - 6.10 04/29/[address] [facility] WBC 6.0 3.7 - 10.4 04/29/2017 [facility] HEMATOLOGY Hct 39.6 42.0 - 54.0 04/29/2017 [facility] HEMATOLOGY MCV 91.3 80.0 - 94.0 04/29/2017 [facility] HEMATOLOGY MCH 29.8 27.0 - 31.0 04/29/2017 [facility] HEMATOLOGY Hgb 13.0 14.0 - 18.0 04/29/2017 [facility] LIPIDS VLDL 29 04/29/2017 [facility] LDL (Calculated) 96 <=99 mg/dL 04/29/2017 [facility] LIPIDS Trig 143 <=149 mg/dL 04/29/2017 [facility] LIPIDS Chol 184 <=199 mg/dL 04/29/2017 [facility] HDL 59 >=61 mg/dL 04/29/2017 [facility] CHD Risk 3.12 4.00 - 7.30 04/29/2017 [facility] Pathology Reports No Data Provided for This Section Diagnostic Reports Report Value Date Source Abdomen/Pelvis CTA Patient Bereket abdul: TERESA WARD : 1955; Age: 63 years y/o Male MR: [id number] * CT ANGIOGRAPHY OF THE ABDOMEN \\T\\ [...] lumbar spine from L2 through S1. SL: [id number] 10/02/2018 [facility] Tibia fibula series DX Exam: [...] acute bony abnormalities identifi ed. 02/04/2018 [facility] Arbol[facility] Abdomen AP DX Examination: Abd omen, one [...] Impression: Right nephrolithiasis. Right ureteral stent. 11/18/2017 [facility] Abdomen AP DX Clinical Indicat ion: [...] to the proximal portion of the stent. BONILLA: [id number] 09/02/2017 [facility] Renal pyelogram retrograde DX Patient Name: TERESA WARD : 1955; Age: 61 years y/o Male MR: [id number] RETROGRADE PYELOGRAPHY, RIGHT HISTORY: Calculus at right [...] bladder. Please refer to urologist's notes. BONILLA: [id number] 08/16/2017 [facility] Scrotal/Testicle w Doppler US Testicular ultrasound [...] right epididymal head cyst. SL: MORENO 08/16/2017 [facility] Abdomen/Pelvis CTA CTA ABDOMEN /PELVIS WITH [...] is interval increase in hydronephrosis. SL:16 08/16/2017 [facility] Chest 2 views DX Clinical Latoya [...] from the previous study. SL: MGLASER-M 08/15/2017 [facility] Chest/Abd/Pelvis CTA Patient N sharla: TERESA WARD : 1955; Age: 61 years y/o Male MR: [id number] Study: Chest/Abd/Pelvis CTA 06/12/2017 8:49 AM [employer] Ordering Physician: Rock Reese MD Clinical Indication: [...] thrombosed infrarenal abdominal aortic aneurysm sac. SL: [id number] 06/12/2017 [facility] Chest/Abdominal Aorta with Runoff CTA Patient Name: TERESA WARD : 1955; Age: 61 years y/o Male MR: [id number] Study: Chest/Abdominal Aorta with Runoff CTA 04/11/2017 [...] at 04/11/2017 5:22 PM CDT 04/11/2017 [facility] Arbol[facility] Chest 1view CHEST, AP INDICATION: Chest pain. [...] negative cervical spine series.. SL: 12 03/23/2014 [facility] Consultation Notes No Data Provided for This Section Discharge Summaries No Data Provided for This Section History and Physicals No Data Provided for This Section Vital Signs Vital Sign Value Date Comments Source Systolic (mm Hg) 173 11/26/2017 [facility] Diastolic (mm Hg) 65 11/26/2017 [facility] Systolic (mm Hg) 170 11/26/2017 [facility] Diastolic (mm Hg) 57 11/26/2017 [facility] Systolic (mm Hg) 169 11/26/2017 [facility] Diastolic (mm Hg) 57 11/26/2017 [facility] Respitory Rate 20 11/26/2017 [facility] Respitory Rate 18 11/26/2017 [facility] Heart Rate 56 11/26/2017 [facility] Respitory Rate 17 11/26/2017 [facility] Temperature Oral (F) 98.3 F 11/19/2017 [facility] Heart Rate 60 11/19/2017 [facility] Weight 86.08 11/19/2017 [facility] BMI Calculated 32.57 11/19/2017 [facility] Height 162.56 cm 11/19/2017 [facility] Heart Rate 71 09/10/2017 [facility] Respitory Rate 18 09/10/2017 [facility] Temperature Oral (F) 99.0 F 09/10/2017 [facility] Systolic (mm Hg) 165 09/10/2017 [facility] Diastolic (mm Hg) 61 09/10/2017 [facility] Height 162.56 cm 09/10/2017 [facility] Weight 84.091 09/10/2017 [facility] BMI Calculated 31.82 09/10/2017 [facility] Systolic (mm Hg) 104 09/02/2017 [facility] Diastolic (mm Hg) 82 09/02/2017 [facility] Respitory Rate 16 09/02/2017 [facility] Temperature Oral (F) 98.7 F 09/02/2017 [facility] Respitory Rate 16 09/02/2017 [facility] Temperature Oral (F) 98.7 F 09/02/2017 [facility] Systolic (mm Hg) 134 09/02/2017 [facility] Diastolic (mm Hg) 66 09/02/2017 [facility] Weight 81.818 09/02/2017 [facility] BMI Calculated 34.08 09/02/2017 [facility] Systolic (mm Hg) 125 09/02/2017 [facility] Diastolic (mm Hg) 81 09/02/2017 [facility] Height 154.94 cm 09/02/2017 [facility] Respitory Rate 18 09/02/2017 [facility] Heart Rate 85 09/02/2017 [facility] Temperature Oral (F) 98.3 F 09/02/2017 [facility] Systolic (mm Hg) 127 08/16/2017 [facility] Diastolic (mm Hg) 69 08/16/2017 [facility] Respitory Rate 16 08/16/2017 [facility] Heart Rate 64 08/16/2017 [facility] Temperature Oral (F) 97.5 F 08/16/2017 [facility] Heart Rate 73 08/16/2017 [facility] Systolic (mm Hg) 146 08/16/2017 [facility] Diastolic (mm Hg) 74 08/16/2017 [facility] Respitory Rate 16 08/16/2017 [facility] Systolic (mm Hg) 146 08/16/2017 [facility] Diastolic (mm Hg) 74 08/16/2017 [facility] Respitory Rate 16 08/16/2017 [facility] Heart Rate 73 08/16/2017 [facility] Temperature Oral (F) 97.5 F 08/16/2017 [facility] Temperature Oral (F) 98.2 F 08/16/2017 [facility] Height 160.02 cm 08/15/2017 [facility] Weight 81.818 08/15/2017 [facility] BMI Calculated 31.95 08/15/2017 [facility] Systolic (mm Hg) 124 04/30/2017 [facility] Diastolic (mm Hg) 67 04/30/2017 [facility] Respitory Rate 16 04/30/2017 [facility] Heart Rate 60 04/30/2017 [facility] Temperature Oral (F) 98.1 F 04/30/2017 [facility] Heart Rate 61 04/30/2017 [facility] Temperature Oral (F) 98.2 F 04/30/2017 [facility] Respitory Rate 16 04/30/2017 [facility] Systolic (mm Hg) 93 04/30/2017 [facility] Diastolic (mm Hg) 51 04/30/2017 [facility] Systolic (mm Hg) 98 04/30/2017 [facility] Diastolic (mm Hg) 49 04/30/2017 [facility] Respitory Rate 16 04/30/2017 [facility] Heart Rate 56 04/30/2017 [facility] Temperature Oral (F) 98.1 F 04/30/2017 [facility] BMI Calculated 32.68 04/29/2017 [facility] Weight 86.364 04/29/2017 [facility] Height 162.56 cm 04/29/2017 [facility] Diastolic (mm Hg) 68 03/23/2014 [facility] Respitory Rate 16 03/23/2014 [facility] Systolic (mm Hg) 163 03/23/2014 [facility] Temperature Oral (F) 97.8 F 03/23/2014 [facility] Heart Rate 60 03/23/2014 [facility] Weight 90.909 03/23/2014 [facility] Respitory Rate 16 03/23/2014 [facility] Temperature Oral (F) 98.1 F 03/23/2014 [facility] Diastolic (mm Hg) 77 03/23/2014 [facility] Heart Rate 65 03/23/2014 [facility] Systolic (mm Hg) 145 03/23/2014 [facility] BMI Calculated 34.4 03/23/2014 [facility] Height 162.56 cm 03/23/2014 [facility] Encounters Location Location Details Encounter Type Encounter Number Reason For Visit Attending Provider ADM Date DC Date Status Source [facility] [id number] An Oliveros 03/23/2014 03/23/2014 [facility] [place] [facility] [id number] Ranjan [facility]/11[facility]2017 [facility] [id number] Ranjan Gil 04/29/2017 04/30/2017 [facility] Outpatient [id number] Rock Reese 06/12/2017 06/13/2017 [facility] Inpatient [id number] Ranjan Gil 08/15/2017 08/17/2017 [facility] Emergency [id number] Reece Puentes 09/02/2017 09/02/2017 [facility] Outpatient [id number] Jose Guadalupe Jenkins 09/10/2017 09/10/2017 [facility] Outpatient [id number] Jose Guadalupe Jenkins 11/18/2017 11/19/2017 [id number] [facility]2017 [facility] [place] Out[facility] Diag Services [id number] Gary Mayers 02/04/2018 02/05/2018 [facility] Arboleda [facility] Outpatient [id number] Ranjan Gil 10/02/2018 10/03/2018 [facility] Procedures Procedure Code Date Perfomer Comments Source AAA - Repair of abdominal aortic aneurys m using bifurcation graft [id number] [facility] [place] [id number] [facility] Miscellaneous operations<sup>1</sup> [id number] back surge ry FARHAD Arboleda,[facility] Cystoscopy [id number] [facility] Procedure on back<sup>2</sup> [id number] Surgery [facility] Assessment and Plan Assessment and Plan [...] doing well with no other complaints. 08/17/2017 [facility] Extracted from:Title: Clinical Document Author: Taniya [...] Palpable FA. Telemetry: Normal sinus rhythm 04/30/2017 [facility] Plan of Care No Data Provided for This Section Social History Social History Date Source Social History TypeResponse Alcohol Past Smoking Status Never smoker; Type: Cigarettes; Exposure to Tobacco Smoke None; Cigarette Smoking Last 365 Days No; Reg Smoking Cessation Counseling No entered on: 11/19/17 11/19/2017 FARHAD Arboleda Social History TypeResponse Alcohol Past Smoking Status Never smoker; Type: Cigarettes; Exposure to Tobacco Smoke None; Cigarette Smoking Last 365 Days No; Reg Smoking Cessation Counseling No entered on: 11/19/17 11/19/2017 [facility] Social History TypeResponse Smoking Status Never smoker, Exposure to Tobacco Smoke None, Cigarette Smoking Last 365 Days No, Reg Smoking Cessation Counseling No 03/23/2014 [facility] Family History No Data Provided for This Section Advance Directives No Data Provided for This Section Functional Status No Data Provided for This Section
--- OUTSIDE RECORDS SUMMARY | 2019-12-04 08:23 | XMS REPORT ---
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 19:30:00 112 mm[Hg] [facility] Diastolic blood pressure 2018-12-12 19:30:00 47 mm[Hg] [facility] Heart rate 2018-12-12 19:30:00 50 /min [facility] ealth Body temperature 2018-12-12 19:30:00 36.89 [facility] Respiratory rate 2018-12-12 19:30:00 13 /min [facility] Oxygen saturation in Arterial blood by Pulse oximetry 12-12 19:30:00 96 /min [facility] Systolic (mm Hg) 2017-11-26 15:30:00 [facility] Diastolic (mm Hg) 2017-11-26 15:30:00 [facility] Systolic (mm Hg) 2017-11-26 14:45:00 [facility] Diastolic (mm Hg) 2017-11-26 14:45:00 [facility] Systolic (mm Hg) 2017-11-26 14:30:00 [facility] Diastolic (mm Hg) 2017-11-26 14:30:00 [facility] Respitory Rate 2017-11-26 14:15:00 [facility] Respitory Rate 2017-11-26 14:00:00 [facility] Heart Rate 2017-11-26 11:48:00 [facility] Respitory Rate 2017-11-26 11:48:00 [facility] Temperature Oral (F) 2017-11-19 14:05:00 98.3 F [facility] Heart Rate 2017-11-19 14:05:00 [facility] Weight 2017-11-19 14:01:00 [facility] BMI Calculated 2017-11-19 14:01:00 MH [facility] Height 2017-11-19 14:01:00 162.56 cm [facility] Heart Rate 2017-09-10 22:55:00 MH [facility] Respitory Rate 2017-09-10 22:55:00 [facility] Temperature Oral (F) 2017-09-10 22:55:00 99.0 [facility] Systolic (mm Hg) 2017-09-10 22:55:00 [facility] Diastolic (mm Hg) 2017-09-10 22:55:00 [facility] Height 2017-09-10 21:51:00 162.56 cm [facility] Weight 2017-09-10 21:51:00 [facility] BMI Calculated 2017-09-10 21:51:00 [facility] Systolic (mm Hg) 2017-09-02 14:28:00 [facility] Diastolic (mm Hg) 2017-09-02 14:28:00 [facility] Respitory Rate 2017-09-02 14:28:00 [facility] Temperature Oral (F) 2017-09-02 14:28:00 98.7 F [facility] Respitory Rate 2017-09-02 13:14:00 [facility] Temperature Oral (F) 2017-09-02 13:14:00 98.7 [facility] Systolic (mm Hg) 2017-09-02 13:14:00 [facility] Diastolic (mm Hg) 2017-09-02 13:14:00 [facility] Weight 2017-09-02 11:24:00 [facility] BMI Calculated 2017-09-02 11:24:00 [facility] Systolic (mm Hg) 2017-09-02 11:24:00 [facility] Diastolic (mm Hg) 2017-09-02 11:24:00 [facility] Height 2017-09-02 11:24:00 154.94 cm [facility] Respitory Rate 2017-09-02 11:24:00 [facility] Heart Rate 2017-09-02 11:24:00 [facility] Temperature Oral (F) 2017-09-02 11:24:00 98.3 F [facility] Systolic (mm Hg) 2017-08-16 23:30:00 [facility] Diastolic (mm Hg) 2017-08-16 23:30:00 [facility] Respitory Rate 2017-08-16 23:30:00 MH [facility] Heart Rate 2017-08-16 23:30:00 [facility] Temperature Oral (F) 2017-08-16 23:30:00 97.5 F [facility] Heart Rate 2017-08-16 22:41:00 [facility] Systolic (mm Hg) 2017-08-16 22:41:00 [facility] Diastolic (mm Hg) 2017-08-16 22:41:00 [facility] Respitory Rate 2017-08-16 22:41:00 [facility] Systolic (mm Hg) 2017-08-16 22:30:00 [facility] Diastolic (mm Hg) 2017-08-16 22:30:00 [facility] Respitory Rate 2017-08-16 22:30:00 [facility] Heart Rate 2017-08-16 22:30:00 [facility] Temperature Oral (F) 2017-08-16 22:30:00 97.5 F [facility] Temperature Oral (F) 2017-08-16 22:11:00 98.2 F [facility] Height 2017-08-15 22:40:00 160.02 cm [facility] Weight 2017-08-15 22:40:00 [facility] BMI Calculated 2017-08-15 22:40:00 [facility] Systolic (mm Hg) 2017-04-30 16:37:00 [facility] Diastolic (mm Hg) 2017-04-30 16:37:00 [facility] Respitory Rate 2017-04-30 16:37:00 [facility] Heart Rate 2017-04-30 16:37:00 [facility] Temperature Oral (F) 2017-04-30 16:37:00 98.1 F [facility] Heart Rate 2017-04-30 12:44:00 [facility] Temperature Oral (F) 2017-04-30 12:44:00 98.2 F [facility] Respitory Rate 2017-04-30 12:44:00 [facility] Systolic (mm Hg) 2017-04-30 12:44:00 [facility] Diastolic (mm Hg) 2017-04-30 12:44:00 [facility] Systolic (mm Hg) 2017-04-30 08:58:00 [facility] Diastolic (mm Hg) 2017-04-30 08:58:00 [facility] Respitory Rate 2017-04-30 08:58:00 MH [facility] Heart Rate 2017-04-30 08:58:00 [facility] Temperature Oral (F) 2017-04-30 08:58:00 98.1 F [facility] BMI Calculated 2017-04-29 16:55:00 [facility] Weight 2017-04-29 16:55:00 [facility] Height 2017-04-29 16:55:00 162.56 cm [facility] Diastolic (mm Hg) 2014-03-23 18:05:00 [facility] [place] Respitory Rate 2014-03-23 18:05:00 [facility] [place] Systolic (mm Hg) 2014-03-23 18:05:00 [facility] [place] Temperature Oral (F) 2014-03-23 18:05:00 97.8 F [facility] Heart Rate 2014-03-23 18:05:00 [place] Weight 2014-03-23 16:46:00 [place] Respitory Rate 2014-03-23 16:46:00 [facility] [place] Temperature Oral (F) 2014-03-23 16:46:00 98.1 F [place] Diastolic (mm Hg) 2014-03-23 16:46:00 [facility] Heart Rate 2014-03-23 16:46:00 [facility] [place] Systolic (mm Hg) 2014-03-23 16:46:00 [place] BMI Calculated 2014-03-23 16:46:00 [place] Height 2014-03-23 16:46:00 162.56 cm [place] Procedures Procedure Date / Time Performed Performing Clinician Georgia Azevedo HRT ARTERY/VENTRICLE ANGIO 2019-11-02 00:00:00 [facility] GLUCOSE POC 2018-12-12 23:07:00 Unknown, Provider Livan Hubbard [facility] OPHTH - TRABECULECTOMY 2018-12-12 20:31:00 Ham Tijerina [facility] ABO/RH CONFIRMATION 2018-12-12 17:33:00 Rickey Tijerina ealth TYPE AND SCREEN 2018-12-12 17:08:00 Rickey Tijerina h T&S - COLLECTION 2018-12-12 17:08:00 Rickey Tijerina BMP POC 2018-12-12 17:03:00 Unknown, Provider Livan Hubbard [facility] 12 LEAD EKG 2018-12-12 17:02:55 Rickey Tijerina XRAY CHEST 2 VIEWS 2018-12-12 16:58:59 Rickey Tijerina CBC/DIFF 2018-12-12 16:58:00 Rickey Tijerina PT/INR 2018-12-12 16:58:00 Rickey Tijerina h CBC 2018-12-12 16:58:00 Rickey Tijerina AAA - Repair of abdominal aortic aneurysm using bifurcation monisha t [facility], [facility] Cholecystectomy [facility] Miscellaneous operations<sup>1</sup> [facility], [facility] Cystoscopy [facility] Procedure on back<sup>2</sup> [facility] Plan of Care Planned Activity Planned Date Details Comments Source [facility] Scheduled Test 2020-04-06 00:00:00 IMM Influenza Seas onal Apr to September (>/= 19 yrs) [code = IMM Influenza Seasonal Apr to September (>/= 19 yrs)] [facility] Scheduled Test 2018 00:00:00 IMM Pneumococcal A ge 65 and Up [code = IMM Pneumococcal Age 65 and Up] [facility] Scheduled Test 2003-09-16 00:00:00 Colorectal Cancer Scrn Annual (FIT/FOBT) Age 50 to 75 [code = Colorectal Cancer Scrn Annual (FIT/FOBT) Age 50 to 75] [facility] Pacemaker [facility] Encounters Start Date/Time End Date/Time Encounter Type Admission Type Attendi [facility] Facility Care Department Encounter ID Source 2019-11-25 13:06:00 2019-11-27 11:10:00 Discharged Inpatient 1 JASON GIL [facility] [id number] [facility] 2019-11-02 10:55:00 2019-11-02 10:55:00 Registered Surgical Day Care [facility] [id number] [facility] 2019-10-28 19:11:00 2019-10-28 21:09:00 Departed Emergency Room [facility] [id number] [facility] 2019-01-06 08:19:31 2019-01-06 08:19:31 Outpatient [facility] [id number] [facility] 2018-12-23 08:22:31 2018-12-23 08:22:31 Outpatient [facility] [id number] [facility] 2018-12-17 16:57:05 2018-12-17 16:57:05 Outpatient [facility] [id number] [facility] 2018-12-16 00:00:00 2018-12-16 00:00:00 Outpatient [facility] [id number] [facility] 2018-12-13 00:00:00 2018-12-13 00:00:00 Outpatient [facility] [id number] [facility] 2018-12-12 12:13:44 2018-12-12 12:13:44 Emergency [facility] [id number] [facility] 2018-12-12 11:35:30 2018-12-12 11:35:30 Emergency [facility] [id number] [facility] 2018-12-12 00:00:00 2018-12-12 00:00:00 Outpatient [facility] [id number] [facility] 2018-12-12 00:00:00 2018-12-12 00:00:00 Emergency [facility] [id number] [facility] 2018-12-12 00:00:00 2018-12-12 00:00:00 Emergency [facility] [id number] [facility] 2018-10-02 13:30:00 2018-10-03 04:59:00 Outpatient [facility] [id number] [facility] 2018-10-02 08:30:00 2018-10-02 23:59:00 Outpatient Minna Gil [facility] [id number] 2018-02-04 15:40:00 2018-02-05 04:59:00 Outpt Diag Services [facility] Outpatient Imaging [place] [id number] FARHAD Fortuneadena 2018-02-04 10:40:00 2018-02-04 23:59:00 Outpatient Gary Mayers [facility] [id number] 2017-11-26 10:29:00 2017-11-26 15:40:00 Day Surgery [facility] [id number] [facility] 2017-11-26 05:29:00 2017-11-26 10:40:00 Outpatient Jose Guadalupe Jenkins [facility] MH[facility] [id number] 2017-11-18 14:29:00 2017-11-19 04:59:00 Outpatient [facility] [id number] [facility] 2017-11-18 09:29:00 2017-11-18 23:59:00 Outpatient Jose Guadalupe Jenkins MHSE MHSE[facility] [id number] 2017-09-10 15:00:00 2017-09-10 18:00:00 Outpatient [facility] [id number] [facility] 2017-09-10 09:00:00 2017-09-10 12:00:00 Outpatient Jose Guadalupe Jenkins MHSE MHSE[facility] [id number] 2017-09-02 11:16:00 2017-09-02 15:05:00 Emergency [facility] [id number] [facility] 2017-09-02 05:16:00 2017-09-02 09:05:00 Outpatient Reece Puentes [facility]SE[facility] MHSE [id number] 2017-08-15 22:18:00 2017-08-17 02:18:00 Inpatient [facility] [id number] [facility] 2017-08-15 16:18:00 2017-08-16 20:18:00 Outpatient Khanh Leigh [facility] SEH [id number] 2017-06-12 14:00:00 2017-06-13 05:59:00 Outpatient [facility] [id number] [facility] 2017-06-12 08:00:00 2017-06-12 23:59:00 Outpatient Rock Reese [facility] [id number] 2017-04-29 16:10:00 2017-04-30 20:48:00 Bedded Outpatient [facility] [id number] [facility] 2017-04-29 11:10:00 2017-04-30 15:48:00 Outpatient Minna Gil [facility] [id number] 2017-04-11 13:22:00 2017-04-12 04:59:00 Outpt Diag Services [facility] Outpatient Imaging - [place] [id number] ATILIO Miller 2017-04-11 08:22:00 2017-04-11 23:59:00 Outpatient Minna Gil [facility] [id number] 2014-03-23 16:44:00 2014-03-23 18:47:[address] [facility] [place] [place] [id number] [facility] 2014-03-23 11:44:00 2014-03-23 13:47:00 Outpatient An Oliveros [facility] [id number] Results Test Description Test Time Test Comments Results Result Comments Source CHEST SINGLE (PORTABLE) 2019-11-26 19:02:00 [place] [address] Patient Name: TERESA WARD MR #: [id number] : 1955 Age/Sex: 64/M Req #: [id number] Adm Physician: JASON GIL MD Ordered by: CLOVER AGUERO MD Report #: [id number] Location: MED/SURG Room/Bed: [facility] Procedure: [id number] DX/CHEST SINGLE (PORTABLE) Exam Date: 11/26/19 Exam Time: 1750 REPORT STATUS: Signed Examination: Single AP view of the chest. COMPARISON: Portable chest 11/25/2019 INDICATION: Status post ICD today IMPRESSION: 1. Lines and Tubes: Interval placement of left upper chest cardiac device, with the distal tip is projecting in the right atrium, right ventricle and coronary sinus. 2. Mild perihilar interstitial opacities, likely reflecting mild interstitial edema. No consolidation or definite effusion is identified. 3. Enlarged cardiac silhouette, stable Central pulmonary venous congestion. 4. No acute bony abnormalities. Signed by: Dr. Jas Bray M.D. on 11/26/2019 7:04 PM Dictated By: JAS BRAY MD 03 Transcribed By: CADEN on 11/26/191903 COPY TO: CLOVER AGUERO MD Serum or plasma triglyceride measurement (mass/volume) 11-25 03:15:00 Test Item Triglycerides Level (test code = 2571-8) 93 0-[address] [facility] plasma cholesterol measurement (mass/volume)2019-11-26 03:15:00* Test Item Value Reference Range Interpretation Comments Cholesterol Level (test code = 2093-3) 91 0-199 Less than 200 mg/dL Low Kile013 - 239 mg/dL Borderline Nrdp168 m g/dl and greater High Risk [facility] plasma cholesterol in LDL measurement (mass/volume) 2019-11-26 03:15:00* Test Item Value Reference Range Interpretation Comments LDL Cholesterol (test code = 2089-1) 33 60-[address] [facility] plasma cholesterol in HDL measurement (mass/volume)2019-11-26 03:15:00* Test Item Value Reference Range Interpretation Comments HDL Cholesterol (test code = 2085-9) 39 40-[address] [facility] or plasma total cholesterol/cholesterol in HDL mass [id number] 03:15:00* Test Item Value Reference Range Interpretation Comments Cholesterol/HDL Ratio (test code = 9830-1) 2.3 3.9-4.[address] [facility] or plasma creatine kinase measurement (enzymatic activity/volume)2019-11-26 03:15:00* Test Item Value Reference Range Interpretation Comments Creatine Kinase (test code = 2157-6) 322 30-[address] [facility] or plasma creatine kinase MB measurement (mass/volume)2019-11-26 03:15:00* Test Item Value Reference Range Interpretation Comments Creatine Kinase MB (test code = 96522-7) 1.70 0-5.0 [facility] by highly sensitive enzyme [id number] 03:15:00* Test Item Value Reference Range Interpretation Comments Troponin I (test code = 37750-7) 0.020 0-0.300 [facility] procedure less than one hour [id number] 15:46:00* Test Item Value Reference Range Interpretation Comments Coronavirus (PCR) (test code = Coronavirus (PCR)) NOT DETECTED NOTD ETECTED SARS-COV-2 (COVID19), HIGHRISK, RT-PCRNegative results do not preclude SARS-CoV- 2 infection and should not be used as the sole basis for patient management deci sions. Negative results must be combined with clinical observations, patient his tory, and epidemiological information. Optimum specimen types and timing for pea k viral levels during infections caused by SARS-CoV-2 have not been determined. Collection of multiple specimens ot types of specimens may be necessary to detec t virus. Improper specimen collection and handling, sequence variability under p rimers/probes, or organism present below the limit of detection may lead to fals e negative results. Positive and negative predictive values of testing are highl y dependent on prevalance. False negative test results are more likely when prev alence is high.The expected result is negative (not detected).The SARS-CoV-2 virgen t is intended for the qualitative detection of nucleic acid from SARS-CoV-2 in n asopharyngeal and oropharyngeal swab samples from patients who meet COVID-19 cli nical and or epidemiological criteria. For lower respiratory tract specimens, th e assay is submitted for authoriztion by FDA under an Emergency Use Authorizatio n (EUA). Testing methodology is real time RT-PCR. If received as separate collec tion devices, nasopharygeal and oropharyngeal specimens are combined for analysi s. Additional specimens may be split to a separate accession for analysi and rep orting as this test includes a single unit of service.Test results must be corre lated with clinical presentation and evaluated in the context of other laborator y and epidemiologic data. Test performance can be affected because the epidemiol ogy and clinical spectrum of infection caused by SARS-CoV-2 is not fully known. For example, the optimum types of specimens to collect and when during the cours e of infection these specimens are most likely to contain detectable viral RNA m ay not be known.This test has not been Food and Drug Administration (FDA) cleare d or approved and has been authorized by FDA under an Emergency Use Authorizatio n (EUA). The test is only authorized for the duration of the declaration that ci rcumstances exist justifying the authorization of emergency use of in vitro diag nostic tests for detection and/or diagnosis of SARS-CoV-2 under section 564(b) o f the Act, 21 U.S.C. section 360bbb-3(b)(1), unless the authorization is termina linh or revoked sooner. [facility] are certified under the C linical Laboratory Improvement Amendments of 1988 (CLIA), 42 U.S.C. section 263a , to perform high complexity tests.Testing performed by [facility] [id number] [place] [address] [phone] Director: Guy Berkowitz M.D.CLIA # [id number] [facility] SINGLE (PORTABLE)2019-11-25 11:58:00 [place] [address] Patient Name: TERESA WARD MR #: [id number] : 1955 Age/Sex: 64/M Req #: [id number] Adm Physician: Ordered by: KORY CODY DO Report #: [id number] Location: ER Room/Bed: Procedure: [id number] DX/CHEST SINGLE (PORTABLE) Exam Date: 11/25/19 Exam Time: 1105 REPORT STATUS: Signed X-ray chest AP portable Comparison: None History: Rapid heart rate Findings: Ce ntral airways unremarkable. Possible cardiomegaly. Atherosclerotic aorta. Elev ation of the left hemidiaphragm could represent subpulmonic effusion. No pneum othorax. No significant focal lung disease. Visualized skeletal structures renea ssly unremarkable. Upper abdomen not well-visualized. Impression: Relative elevation of the left hemidiaphragm as described above. Cardiomegaly. No signi ficant focal lung disease visualized. Signed by: Tone Guillen MD on 2019 12:00 PM Dictated By: TONE GUILLEN MD 1200 Transcribed By: CADEN on 11/25/19 1200 COPY TO: KORY CODY, Blood leukocytes automated count (number/volume)2019-11-25 11:30:00* Test Item Value Reference Range Interpretation Comments White Blood Count (test code = 6690-2) 5.98 4.8-10.8 [facility] (number/volume)2019-11-25 11:30:00* Test Item Value Reference Range Interpretation Comments Red Blood Count (test code = 789-8) 4.26 4.3-5.7 [facility] measurement (moles/volume)2019-11-25 11:30:00* Test Item Value Reference Range Interpretation Comments Hemoglobin (test code = 15888-1) 13.1 14.0-18.0 [facility] hematocrit (volume fraction)2019-11-25 11:30:00* Test Item Value Reference Range Interpretation Comments Hematocrit (test code = 4544-3) 40.6 38.2-49.6 [facility] erythrocyte mean corpuscular uvligu6944-76-39 11:30:00* Test Item Value Reference Range Interpretation Comments Mean Corpuscular Volume (test code = 787-2) 95.3 81-99 [facility] mean corpuscular hemoglobin (mass per erythrocyte)2019-11-25 11:30:00* Test Item Value Reference Range Interpretation Comments Mean Corpuscular Hemoglobin (test code = 785-6) 30.8 28-32 [facility] eryth[facility] mean corpuscular hemoglobin concentration measurement (mass/volume)2019-11-25 11:30:00* Test Item Value Reference Range Interpretation Comments Mean Corpuscular Hemoglobin Concent (test code = 786-4) 32.3 31-35 [facility] CenterRDW YotPg-Flp7864-98-21 11:30:00* Test Item Value Reference Range Interpretation Comments Red Cell Distribution Width (test code = 85118-6) 13.8 11.7 -14.4 [facility] platelet count (count/volume)2019-11-25 11:30:00* Test Item Value Reference Range Interpretation Comments Platelet Count (test code = 777-3) 133 140-360 [facility] segmented neutrophil count as percentage of total hywmmswvcy1035-30-69 11:30:00* Test Item Value Reference Range Interpretation Comments Neutrophils (%) (Auto) (test code = 36795-1) 66.0 38.7-80.0 [facility]Aut[facility] blood lymphocyte count as percentage ot total wcfmooaxgf3602-32-00 11:30:00* Test Item Value Reference Range Interpretation Comments Lymphocytes (%) (Auto) (test code = 736-9) 23.4 18.0-39.1 [facility] CenterAutom[facility] monocyte count as percentage of total rozangpvnl7193-64-76 11:30:00* Test Item Value Reference Range Interpretation Comments Monocytes (%) (Auto) (test code = 5905-5) 7.7 4.4-11.3 [facility] CenterAutomated blood eosinophil count as percentage of total sxvjqelbzs3209-39-16 11:30:00* Test Item Value Reference Range Interpretation Comments Eosinophils (%) (Auto) (test code = 713-8) 2.2 0.0-6.0 [facility] CenterAutomated blood basophil count as percentage of total zwkxsxhisj5779-53-24 11:30:00* Test Item Value Reference Range Interpretation Comments Basophils (%) (Auto) (test code = 706-2) 0.5 0.0-1.0 [facility] CenterFluoroscopic procedure less than one hour lkrpafvu7467-23-10 11:30:00* Test Item Value Reference Range Interpretation Comments IM GRANULOCYTES % (test code = IM GRANULOCYTES %) 0.2 0.0- 1.0 [facility] CenterAutomated blood neutrophil count 2019-11-25 11:30:00* Test Item Value Reference Range Interpretation Comments Neutrophils # (Auto) (test code = 751-8) 4.0 2.1-6.9 [facility] CenterBlood lymphocytes count (number/volume) 2019-11-25 11:30:00* Test Item Value Reference Range Interpretation Comments Lymphocytes # (Auto) (test code = 67246-9) 1.4 1.0-3.2 [facility] CenterBlood monocytes automated count (number/volume)2019-11-25 11:30:00* Test Item Value Reference Range Interpretation Comments Monocytes # (Auto) (test code = 742-7) 0.5 0.2-0.8 [facility] CenterAutomated blood eosinophil count 2019-11-25 11:30:00* Test Item Value Reference Range Interpretation Comments Eosinophils # (Auto) (test code = 711-2) 0.1 0.0-0.4 [facility] CenterAutomated blood basophil count (count/volume)2019-11-25 11:30:00* Test Item Value Reference Range Interpretation Comments Basophils # (Auto) (test code = 704-7) 0.0 0.0-0.1 [facility] CenterFluoroscopic procedure less than one hour euypeluz0894-17-83 11:30:00* Test Item Value Reference Range Interpretation Comments Absolute Immature Granulocyte (auto (virgen t code = Absolute Immature Granulocyte (auto) 0.01 0-0.1 [facility] CenterUrine color pvbigevryhjrh1944-39-65 11:30:00* Test Item Value Reference Range Interpretation Comments Urine Color (test code = 5778-6) YELLOW YELLOW [facility] CenterUrine jaebphr6018-06-14 11:30:00* Test Item Value Reference Range Interpretation Comments Urine Clarity (test code = 18834-1) SL CLOUDY CLEAR [facility] gravity of Urine by Test strip 2019-11-25 11:30:00* Test Item Value Reference Range Interpretation Comments Urine Specific [place] (test code = 5811-5) 1.020 1.010-1.02 5 [facility] CenterUrine pH measurement by automated test eitbc0989-87-28 11:30:00* Test Item Value Reference Range Interpretation Comments Urine pH (test code = 68972-9) 5.5 5-7 [facility] CenterUrine leukocyte esterase detection by qsaxmbqb6544-28-94 11:30:00* Test Item Value Reference Range Interpretation Comments Urine Leukocyte Esterase (test code = 5799-2) NEGATIVE NEGATIVE [facility] CenterUrine nitrite yhqfkatsr1447-01-86 11:30:00* Test Item Value Reference Range Interpretation Comments Urine Nitrite (test code = 31942-3) NEGATIVE NEGATIVE [facility] CenterUrine protein measurement by test strip (mass/volume)2019-11-25 11:30:00* Test Item Value Reference Range Interpretation Comments Urine Protein (test code = 5804-0) 2+ NEGATIVE [facility] CenterUrine glucose seimeoply0674-62-57 11:30:00* Test Item Value Reference Range Interpretation Comments Urine Glucose (UA) (test code = 2349-9) NEGATIVE NEGATIVE [facility] CenterUrine ketones detection by automated test jcert8745-47-91 11:30:00* Test Item Value Reference Range Interpretation Comments Urine Ketones (test code = 11651-5) NEGATIVE NEGATIVE [facility] CenterUrine urobilinogen measurement by test strip (mass/volume)2019-11-25 11:30:00* Test Item Value Reference Range Interpretation Comments Urine Urobilinogen (test code = 86283-3) 0.2 0.2-1 [facility] CenterU[facility] total bilirubin measurement (mass/volume)2019-11-25 11:30:00* Test Item Value Reference Range Interpretation Comments Urine Bilirubin (test code = 1978-6) NEGATIVE NEGATIVE [facility] CenterUrine erythrocytes aegzmomyo2805-88-60 11:30:00* Test Item Value Reference Range Interpretation Comments Urine Blood (test code = 38193-9) TRACE NEGATIVE [facility] CenterAutomated urine sediment leukocyte count by microscopy (number/high power field)2019-11-25 11:30:00* Test Item Value Reference Range Interpretation Comments Urine WBC (test code = 5821-4) NONE 0-5 [facility] CenterErythrocytes detection in urine sediment by light tllgqonmdv8323-68-41 11:30:00* Test Item Value Reference Range Interpretation Comments Urine RBC (test code = 34248-6) 0-5 0-5 [facility] CenterBacteria detection in urine sediment by light hqfhtiiqra8949-68-96 11:30:00* Test Item Value Reference Range Interpretation Comments Urine Bacteria (test code = 80000-9) MODERATE NONE [facility] CenterEpithelial cells detection in urine sediment by light otuoeoaqox5823-59-93 11:30:00* Test Item Value Reference Range Interpretation Comments Urine Epithelial Cells (test code = 96198-7) RARE NONE [facility] CenterHyaline casts detection in urine sediment by light lpjdnzlrzy8378-64-84 11:30:00* Test Item Value Reference Range Interpretation Comments Urine Hyaline Casts (test code = 58819-2) 6-10 0-[address] [facility] [facility] Hospitalerum or plasma sodium measurement (moles/volume)2019-11-25 11:30:00* Test Item Value Reference Range Interpretation Comments Sodium Level (test code = 2951-2) 142 136-[address] [facility] Hospitalerum or plasma potassium measurement (moles/volume)2019-11-25 11:30:00* Test Item Value Reference Range Interpretation Comments Potassium Level (test code = 2823-3) 3.8 3.5-5.[address] [facility] Hospitalerum or plasma chloride measurement (moles/volume)2019-11-25 11:30:00* Test Item Value Reference Range Interpretation Comments Chloride Level (test code = 2075-0) 102 98-[address] [facility] Hospitalerum or plasma carbon dioxide, total measurement (moles/volume)2019-11-25 11:30:00* Test Item Value Reference Range Interpretation Comments Carbon Dioxide Level (test code = 2028-9) 27 22-[address] [facility] Hospitalerum or plasma anion gqc1708-75-97 11:30:00* Test Item Value Reference Range Interpretation Comments Anion Gap (test code = 85935-9) 16.8 8-[address] [facility] [facility] Hospitalerum or plasma urea nitrogen measurement (mass/volume)2019-11-25 11:30:00* Test Item Value Reference Range Interpretation Comments Blood Urea Nitrogen (test code = 3094-0) 21 7-[address] [facility] Hospitalerum or plasma creatinine measurement (mass/volume)2019-11-25 11:30:00* Test Item Value Reference Range Interpretation Comments Creatinine (test code = 2160-0) 1.26 0.72-1.[address] [facility] Hospitalerum or plasma urea nitrogen/creatinine mass cerzd8455-29-25 11:30:00* Test Item Value Reference Range Interpretation Comments BUN/Creatinine Ratio (test code = 3097-3) 17 6-25 [facility] CenterEstimated glomerular filtration rate (GFR) vakgtmrbwwyfo8235-24-71 11:30:00* Test Item Value Reference Range Interpretation Comments Estimat Glomerular Filtration Rate (test code = 399347345) 57 >60 Ranges were taken from the National Kidney Disease Education Program and the [facility] [employer] literature.Reference ranges:60 or greater: Xupwrb14-93 ( for 3 consecutive months): Chronic kidney disease 15 or less: Kidney failureCitizens Medical CenterGlucose asapzisjjtv5551-27-53 11:30:00* Test Item Value Reference Range Interpretation Comments Glucose Level (test code = RTT0003) 101 74-[address] [facility] Hospitalerum or plasma calcium measurement (mass/volume)2019-11-25 11:30:00* Test Item Value Reference Range Interpretation Comments Calcium Level (test code = 10969-1) 9.6 8.4-10.[address] [facility] Hospitalerum or plasma total bilirubin measurement (mass/volume)2019-11-25 11:30:00* Test Item Value Reference Range Interpretation Comments Total Bilirubin (test code = 1975-2) 1.2 0.2-1.2 [facility] CenterFluoroscopic procedure less than one hour ohbjapzz4092-03-04 11:30:00* Test Item Value Reference Range Interpretation Comments Aspartate Amino Transf (AST/SGOT) (test code = Aspartate Amino Transf (AST/SGOT)) 33 5-[address] [facility] Hospitalerum or plasma alanine aminotransferase measurement (enzymatic activity/volume)2019-11-25 11:30:00* Test Item Value Reference Range Interpretation Comments Alanine Aminotransferase (ALT/SGPT) (test code = 1742-6) 28 0-[address] [facility] [facility] Hospitalerum or plasma protein measurement (mass/volume)2019-11-25 11:30:00* Test Item Value Reference Range Interpretation Comments Total Protein (test code = 2885-2) 8.2 6.5-8.[address] [facility] Hospitalerum or plasma albumin measurement (mass/volume)2019-11-25 11:30:00* Test Item Value Reference Range Interpretation Comments Albumin (test code = 1751-7) 3.8 3.5-5.0 [facility] CenterPlasma globulin measurement (mass/volume) 2019-11-25 11:30:00* Test Item Value Reference Range Interpretation Comments Globulin (test code = 20626-1) 4.4 2.3-3.[address] [facility] Hospitalerum or plasma albumin/globulin mass tazhl1008-01-96 11:30:00* Test Item Value Reference Range Interpretation Comments Albumin/Globulin Ratio (test code = 1759-0) 0.9 0.8-2.[address] [facility] Hospitalerum or plasma alkaline phosphatase measurement (enzymatic activity/volume)2019-11-25 11:30:00* Test Item Value Reference Range Interpretation Comments Alkaline Phosphatase (test code = 6768-6) 107 40-150 [facility] CenterBNP Odp-hMwf4869-74-21 11:30:00* Test Item Value Reference Range Interpretation Comments B-Type Natriuretic Peptide (test code = 79941-3) 110.8 0-100 [facility]- X[facility] HIP W/PEL UNI 2+V GX3275-03-13 10:29:00 Name: TERESA WARD [facility] : 1955 Age/S:63 /M [address] [place] [address] Unit#:[id number] Loc: [place] [address] Phys: Rickey Patiño MD Dis Date: PHONE #: [phone] Status: REG ER FAX #: [phone] Exam Date: 01/24/2019 Reason: trauma, pain EXAMS: CPT CODE: [id number] XR HIP W/PEL UNI 2+V 45335 CLINICAL HISTORY: trauma, pain TECHNIQUE: Neutral and frog leg AP views of the left hip COMPARISON: None FINDINGS: No acute fracture. Left hip joint is not dislocated. Mild bilateral hip degenerative arthrosis. Visualized bony pelvis is intact. Bony trabecular pattern is unremarkable. Bilateral inguinal surgical clips. Atherosclerotic vascular calcification. Regional soft tissues are unremarkable. Degenerative changes of the included lower lumbar spine. IMPRESSION: No acute fracture or dislocation of the left hip. at 1029 Reported and signed by: Nora Stein D.O. CC: Rickey Patiño MD; Rito Barnes Technologist: Suman Briceno RT(R)(CT) Trnscrpt Data: 01/24/2019 (1029) KoryLDP1 Orig Print D/T: S: 01/24/2019 (0969) PAGE 1 Signed Report - XR KNEE 3 V GO5266-54-22 10:29:00 Name: TERESA WARD [facility] : 1955 Age/S:63 /M [address] [place] [address] Unit#:[id number] Loc: [place] [address] Phys: Rickey Patiño MD Dis Date: PHONE #: [phone] Status: REG ER FAX #: [phone] Exam Date: 01/24/2019 Re ason: fall EXAMS: CPT CODE: [id number] XR KNEE 3 V LT [address]51 CLINICAL HISTORY: Pain status post f all TECHNIQUE: AP, oblique, and lateral views of the left knee COMPARISON: None FINDINGS: No acute fract ure or dislocation. Bony trabecular pattern is unremarkable. No cortical d estruction or periosteal reaction. Joint spaces are preserved. No joint ef fusion. Atherosclerotic vascular calcification. Prepatellar soft tissue sw elling. IMPRESSION: No acute fracture or dislocation. Prepatellar soft tissue swelling. Electronically Sig yamil by Nora Stein D.O. on 01/24/2019 at 1029 Reported and signed by: Nora Stein D.O. CC: Rickey Patiño MD; Khanh Barnes Technologist: Suman Briceno RT(R)(CT) Trnscrpt Data: 01/24/2019 (1029) t.ELLIR.LDP1 Orig Print D/T: S: 01/24/2019 (1498) PAGE 1 Signed Report - US ABDOMEN COMPLETE 2018-12-25 10:55:00 Name: TERESA WARD [facility] : 1955 Age/S: 63 / M [address] [facility] Unit #: [id number] [place]: [place] [address] Phys: Davida Sanchez MD Acct: [id number] Dis Date: Status: REG CLI PHONE #: [phone] Exam Date: 12/25/2018 1018 FAX #: [phone] Reason: CIRRHOSIS EXAMS: CPT CODE: [id number] US ABDOMEN COMPLETE 85313 TECHNIQUE - US ABDOMEN COMPLETE . COMPARISON: CT abdomen and pelvis 01/04/2016 HISTORY: 63 years Male CIRRHOSIS FINDINGS: Pancreas: Normal in size and echogenicity. No focal lesions or pancreatic duct dilatation. Liver: Normal size. Normal echogenicity. No focal lesions. Liver measures 15 cm. Normal flow in the portal vein towards the liver. Gallbladder: Cholecystectomy. Biliary ducts: No intra or extrahepatic biliary dilatation. [...] 1 Signed Report (CONTINUED) Name: TERESA WARD [facility] : 1955 Age/S: 63 / M [address] [facility] Unit #: [id number] Loc: [place] [address] Phys: Davida Sanchez MD Acct: [id number] Dis Date: Status: REG CLI PHONE #: [phone] Exam Date: 12/25/2018 1018 FAX #: [phone] Reason: CIRRHOSIS EXAMS: CPT CODE: [id number] US ABDOMEN COMPLETE 37293 < Continued> CC: Davida Sanchez MD; Rito Barnes [facility] Technologist: EDWARD DYE RT(R),RDMD Trnscb Date/Time: 12/25/2018 (1055) t.LIO Orig Print D/T: S: 12/25/2018 (1052) Probe: PAGE 2 Signed Report POCT GLUCOSE POC docked iovwsi4124-82-37 18:09:00* Test Item Value Reference Range Interpretation Comments Glucose POC (test code = 62851983) 97 mg/dL 74-106 Lab Interpretation (test code = 87272-2) Normal [facility] Hospital[facility] 2 GJGLV8585-44-65 13:40:14IMPRESSION: Central pulmonary vascular congestion and bibasilar [...] Range Interpretation Comments ABO/RH (test code = 36112799) O POS [facility] HealthType and Sfafeq4322-14-67 13:22:00* Test Item Value Reference Range Interpretation Comments Specimen Expiration (test code = 33647370) 12/15/2018 23:59 ABO/RH (test code = 31887959) O POS Antibody Screen (test code = 50046001) NEG [facility] HealthPT/OTJ0362-02-85 13:05:00* Test Item Value Reference Range Interpretation Comments PT (test code = 5902-2) 13.8 11.8- 15.0 Seconds INR (test code = 03971015) 1.1 Refer to INR ranges 2.0 - 3.0 for moderate intensity anticoagulation2.5 - 3.5 for high intensity anticoagulation Lab Interpretation (test code = 82932-0) Normal [place] [address] LEAD GYQ8860-74-99 13:00:3112 LEAD EKG FOR [facility] Test Date: 4673-00-09Gis Name: TERESA WARD Department: Room: Gender: M 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 MeasurementsIntervals [place] Rate: 60 P: 55PR: 150 QRS: -26QRSD: 119 T: 76QT: 469 QTc: 469 Interpretive StatementsSINUS RHYTHMPOSSIBLE LEFT ATRIAL ENLARGEMENTBORDERLINE LEFT AXIS DEVIATIONLEFT VENTRICULAR HYPERTROPHY AND ST-T CHANGEElectronically Signed On 12-12-2018 13:00:27 CDT by Debi Kelley M.D.[facility]/Sxim0020-30-90 12:38:00* Test Item Value Reference Range Interpretation [...] g/dL 32-36 L RDW (test code = 08043-9) 52.2 fL 35.1-43.9 H Platelet (test code = 777-3) 101 K/uL 150-400 L Mean Platelet Volume (test code = 65992-2) 10.2 fL 9.4-12.4 Percent NRBC (test code = 54476384) 0.0 % Neutrophil (test code = 770-8) 72.7 % 34-67.9 H Lymphs (test code = 736-9) 19.8 % 21.8-50 L Monocytes (test code = 5905-5) 5.4 % 5.3-12 Eos (test code = 713-8) 1.1 % 0.8-5 Basos (test code = 706-2) 0.5 % 0.2-1.2 Immature Granulocytes (test code = 67764296) 0.5 % 0-0.5 Neutrophils (Absolute) (test code = 79663757) 4.69 K/uL 1.78-5.3 6 Lymphs (Absolute) (test code = 35985864) 1.28 K/uL 1.32-3.57 L Monocytes(Absolute) (test code = 72162738) 0.35 K/uL 0.3-0.82 Eos (Absolute) (test code = 47323206) 0.07 K/uL 0.04-0.54 Baso (Absolute) (test code = 11171696) 0.03 K/uL 0.01-0.08 Immature Grans (Abs) (test code = 25036722) 0.03 K/uL 0-0.03 Absolute NRBC (test code = 09759340) 0.00 K/uL Lab Interpretation (test code = 17663-1) Abnormal [facility] BMP POC docked iiqwsj7493-63-75 12:10:00* Test Item Value Reference Range Interpretation Comments Sodium POC (test code = 00636187) 141 mmol/L 136-145 Potassium POC (test code = 89991915) 4.1 mmol/L 3.5-5.1 Chloride POC (test code = 79316412) 105 mmol/L 98-107 TCO2 POC (test code = 07525517) 24 mmol/L 21-32 Urea Nitrogen POC (test code = 15341813) 26 mg/dL 7-18 H Creatinine POC (test code = 02133766) 1.2 mg/dL 0.6-1.3 Glucose POC (test code = 64735996) 101 mg/dL 74-106 Ionized Calcium POC (test code = 30464518) 1.19 mmol/L 1.15-1.29 eGFR If Africn Am (test code = 11424360) >60 mL/min/1.73 m 2 GFR, Estimated (test code = 62674241) >60 mL/min/1.73 m2 Hemoglobin POC (test code = 66822788) 15.0 g/dL 12-16 15 Hematocrit POC (test code = 27516267) 44.0 % 37-47 Lab Interpretation (test code = 91772-0) Abnormal [facility] HospitalCHEM COCOZ5398-16-48 12:57:0063[facility] MMFRZ9698-16-62 12:57:001.2MH MyppxxlosYSJZBWIJVFZU8490-87-74 14:17:0012.3[facility] RFRGJUWUDIFN7670-33-17 14:17:0081[facility] HospitalPawwtablcHSBBTSVYDIMH9582-20-49 14:17:000.98 [facility] HospitalXvvrpcqcoVYUIHHCBOCCM9073-68-16 14:17:0021[facility] HospitalDpuelkfnrMXCWXZFGLZDK6586-34-21 14:17:0087[facility] HospitalMcdyfdvrtJBIGMPAMSMOX5105-21-42 14:17:69686BR SoutheastELECTROLYTES 2017-11-19 14:17:004.3MU[facility] Medical CenterIpzqncbhdVONGFKMEJTIJ9199-67-69 14:17:0028[facility] WBEJIJXCCKOO6931-65-05 14:17:20657WJMurphy Army HospitalEyntahbdcXPUQDGREZNSP5631-34-98 14:17:008.6 VtchyjhhgUTGYQXSDKA9535-90-44 14:17:00* Test Item Value Reference Range Interpretation Comments INR (test code = INR) 1.00 1 0.85-1.17 PtndjknavCOHMKJXKTS1123-53-56 14:17:00* Test Item Value Reference Range Interpretation Comments PTT (test code = PTT) 30.6 s 22.9-35.8 XjfqmzipfJQIQSRNWDP1706-63-63 14:17:00* Test Item Value Reference Range Interpretation Comments PT (test code = PT) 13.2 s 12.0-14.7 SrmszavvvSQGQYDSLHJ0285-93-44 14:17:000.2M DxmfajkdeGFYAXUXBCK3210-35-55 14:17:000.4 HyodpzouxIZYDJIMVMF7218-74-31 14:17:000.8 [facility] 2017-11-19 14:17:004.0 RftjjwdexYAKIHTTUDW0612-76-46 14:17:008.0[facility] TRCCKAFTMU0916-99-04 14:17:001.7 QqwowifesFVIDFHTUKK1739-16-28 14:17:003.1M AuqdzwipdBBLXOOYZKW0733-29-22 14:17:0030.6M VsfedjxcvNZONMYRBSJ3712-00-39 14:17:0056.[facility] PzwbosyljBCQBZYPVRK9484-28-84 14:17:56226BB [facility]HEMAT[facility]Y 2017-11-19 14:17:007.6M DgijfkqdvTDXFSYREMT4327-95-76 14:17:0039.5[facility] RAMLROJHVG5151-80-84 14:17:0014.5 SnkkobvseJRGQHUZQWJ4531-78-62 14:17:0031.9 NkrdextkyCGGUDFBAEN6181-53-73 14:17:00* Test Item Value Reference Range Interpretation Comments MCH (test code = MCH) 29.1 pg 27.0-31.0 NuubxtwkqIFPVYFBJKE8838-43-15 14:17:0091.1M VcdwiqmttPBFULYGKEZ8516-13-69 14:17:0012.6M MesirhjisYRYQUETKRL5881-77-87 14:17:004.33 [facility] 2017-11-19 14:17:005.6M SoutheastURINE AND YXCLH7651-55-69 14:17:00>182 [facility] SGCAU4644-46-29 14:17:00Negative (11/19/17 9:17 AM) [facility] RGRHS9802-28-58 14:17:005 [facility] STOOL 2017-11-19 14:17:00Negative *NA*(11/19/17 9:17 AM) [facility] STOOL 2017-11-19 14:17:00Large *ABN*(11/19/17 9:17 AM) [facility] STOOL 2017-11-19 14:17:00Negative (11/19/17 9:17 AM) [facility] STOOL 2017-11-19 14:17:00Clear (11/19/17 9:17 AM) [facility] SBVWL6808-03-64 14:17:00* Test Item Value Reference Range Interpretation Comments UA Spec Grav (test code = UA Spec Grav) 1.017 1 [facility] YYFZN6613-42-97 14:17:00* Test Item Value Reference Range Interpretation Comments UA pH (test code = UA pH) 5.0 1 5.0-8.0 SoutheastCHEM XRGRO0814-84-69 22:47:0078 SoutheastCHEM GQPWI1551-11-41 22:47:27732SG SoutheastCHEM JAHVU4882-15-93 22:47:003.9 SoutheastCHEM PANEL 2017-09-10 22:47:56931ML SoutheastCHEM EVGON3698-72-87 22:47:0028 [facility] CHEM WJCJC1865-60-98 22:47:008.2MH SoutheastCHEM TLGZR0167-84-81 22:47:001.02[facility] HospitalCHEM DZBKJ8486-77-86 22:47:0020[facility] HospitalCHEM TQOAR1654-09-05 22:47:42357BKMur[facility] Army HospitalCHEM GCZRR2731-71-39 22:47:0012.9 [facility] 2017-09-10 22:47:00* Test Item Value Reference Range Interpretation Comments INR (test code = INR) 1.05 1 0.85-1.17 GrnzwycewXEHUHONUUU7955-87-98 22:47:00* Test Item Value Reference Range Interpretation Comments PT (test code = PT) 13.7 s 12.0-14.7 UawdhzvurPMJGSTMNKI2437-02-17 22:47:00* Test Item Value Reference Range Interpretation Comments PTT (test code = PTT) 33.7 s 22.9-35.8 DrevabgzgFUDDWDATJS0630-12-01 22:47:0080.6M MyjjkqdcbNJOSTAYOLU5059-27-04 22:47:0011.1M JivshsflrUGENZDRLPN8222-55-44 22:47:006.5 [facility] 2017-09-10 22:47:001.5 TfxzoogpdAWDQSCBKCS9478-30-54 22:47:000.1[facility] EDNFTGMHCN2254-24-55 22:47:000.4 QqedcroxjECUPJTLHYH2299-12-26 22:47:000.8 TigkrczvwNIOFKVXLBC5232-13-09 22:47:005.5 JmbjdiakuDTFGADYFEP8660-44-70 22:47:000.3M NcjjwjeljJZRLZJNSBE0181-22-08 22:47:00* Test Item Value Reference Range Interpretation Comments MCH (test code = MCH) 31.1 pg 27.0-31.0 TbiddqwabSAFGOEFURL8925-10-44 22:47:0095.1M OeecomkwxPCDEJYRBUQ1966-20-71 22:47:0031.2M GoxxluaxnLIULWFOIWW9844-46-05 22:47:0010.2M [facility]HEMAT[facility]Y 2017-09-10 22:47:003.28 EtvdmucloAFDQWCJOZU2197-15-18 22:47:006.8[facility] AVLMWTJLAY4730-00-32 22:47:006.5 DjjvdszpcUKVVLIVUHS8782-27-76 22:47:64880FI TpzyimgouMADVIVLZJH6709-08-43 22:47:0014.7 KuwkqiujhVRDKXGASEW7526-69-51 22:47:0032.7 [facility] LYPJS4527-75-57 22:47:00>182 [facility] WTQNT6166-34-08 22:47:33425CU [facility] NABTB5774-85-38 22:47:004 [facility] TDOVM0700-64-97 22:47:00Trace *ABN*(09/10/17 4:47 PM) [facility] IZSTL2513-83-28 22:47:00Negative (09/10/17 4:47 PM) [facility] WMNOU2142-25-89 22:47:00Marked *ABN*(09/10/17 4:47 PM) [facility] OPQLS6875-66-42 22:47:00* Test Item Value Reference Range Interpretation Comments UA Spec Grav (test code = UA Spec Grav) 1.018 1 [facility] TGUKG3890-94-87 22:47:00Yellow *NA*(09/10/17 4:47 PM) [facility] CUSPK4719-39-46 22:47:00* Test Item Value Reference Range Interpretation Comments UA pH (test code = UA pH) 5.0 1 5.0-8.0 [facility] LISUH7994-33-00 22:47:00Negative *NA*(09/10/17 4:47 PM) [facility] KSVTK6530-78-37 22:47:00Large *ABN*(09/10/17 4:47 PM)[facility]BL[facility] UNJLYJT4158-57-62 12:43:00Positive 1(09/02/17 6:43 AM)[facility] HospitalXjikajmfnVFZUJEFFVXMH8310-65-46 12:43:0011.8[facility] HospitalBmpnyjgmrYBMKPBTWGDHW1702-10-05 12:43:0084[facility] HospitalEiixbrmvxEBMVKIOACWZK3376-59-53 12:43:008.4[facility] HospitalELECTROLYTES 2017-09-02 12:43:54628PT HyxjoqzayDRITNWEWBJJB4324-76-41 12:43:0026[facility] OFDZZFZOSSOS1418-62-99 12:43:0013MH LqatzaycvQMWHQQCQOWAZ9043-90-54 12:43:000.96 PajktmtopBVLYJZDEBTXJ0202-97-00 12:43:0087 LtdkhdkfhJVTWAONWRYYD9572-95-61 12:43:69024KH YvkyhhmcdVVHPXBLVJCDE3688-30-99 12:43:003.8 [facility] 2017-09-02 12:43:003.4 EvtgonpcwPVSUMYUAXB0357-17-47 12:43:001.4[facility] WLXVTGKURW8918-92-74 12:43:000.4 CvvdbteftUCLFCHLHVI0741-31-39 12:43:000.9 QslgqszcvSPQVKQSLDC1391-08-57 12:43:003.9 QsgfpvlhpOSEQSPAVNO8163-67-29 12:43:000.2M ZhmoajlgpFKNBLKYDFY3342-27-24 12:43:0025.0 [facility] 2017-09-02 12:43:007.5 OuzsfzyhaRNJFHUZYKU7892-76-58 12:43:0062.7[facility] GNVMCYJEPD7518-96-52 12:43:0032.9 PdgvlvuvrSOZZMLZNLE5274-32-22 12:43:00* Test Item Value Reference Range Interpretation Comments MCH (test code = MCH) 31.3 pg 27.0-31.0 XmdwwxgzaQTUNSRHDHY0379-78-12 12:43:0094.9 QsfipfpumFLIRSAXHLE7785-75-61 12:43:0039.6M WoitwcaaiYFFVJMBGBO9051-76-36 12:43:0014.7 [facility] 2017-09-02 12:43:007.1M GeldpmuurFDJZKAXFSB1175-35-81 12:43[facility] IQDXJZLXJV2945-13-68 12:43:0013.0 JebmdqpkmBPATNMXHXA7111-41-16 12:43:004.17 XidpxpluuZLGJNKQLSA8325-06-82 12:43:005.4 VupmjbxhjPLVNERMXDR7874-40-84 12:43:00* Test Item Value Reference Range Interpretation Comments INR (test code = INR) 1.05 1 0.85-1.17 DqysfrioeSUDBZJVJZY3518-91-78 12:43:00* Test Item Value Reference Range Interpretation Comments PT (test code = PT) 13.7 s 12.0-14.7 [facility] ZUHPI3380-68-35 12:06:00None Seen (09/02/17 6:06 AM) [facility] XHPQG7756-48-11 12:06:00Performed (09/02/17 6:06 AM) [facility] NKKPX3817-87-13 12:06:00Moderate *ABN*(09/02/17 6:06 AM) [facility] LCGFX2667-82-03 12:06:0015 [facility] STOOL 2017-09-02 12:06:00* Test Item Value Reference Range Interpretation Comments UA pH (test code = UA pH) 7.0 1 5.0-8.0 [facility] DQXTG8350-44-71 12:06:00Negative (09/02/17 6:06 AM) [facility] JTPCF5135-49-18 12:06:00Large *ABN*(09/02/17 6:06 AM) [facility] PSFVC8435-73-44 12:06:00Marked *ABN*(09/02/17 6:06 AM) [facility] NLOLL9432-40-74 12:06:00* Test Item Value Reference Range Interpretation Comments UA Spec Grav (test code = UA Spec Grav) 1.010 1 [facility] QVHWD2954-92-82 12:06:00Negative (09/02/17 6:06 AM) [facility] NCBEV2334-90-53 12:06:004.0 [facility] STOOL 2017-09-02 12:06:00Positive *ABN*(09/02/17 6:06 AM) [facility] STOOL 2017-09-02 12:06:00Red *ABN*(09/02/17 6:06 AM) [facility] ENZYM[facility] 2017-08-15 23:06:00<0.02 [facility] NIVVASV4796-51-27 23:06:00* Test Item Value Reference Range Interpretation Comments CK MB Index (test code = CK MB Index) 1.5 1 <=2.5 [facility] EXFICHG6850-45-56 23:06:001.9 [facility] ENZYMES 2017-08-15 23:06:21143HZ [facility] TNUVM0051-41-98 23:06:0077MH [facility] PVFQE9935-41-07 23:06:007.9MH [facility] PSUUK7186-03-61 23:06:0028 [facility] EBFIL9003-66-53 23:06:003.2MH [facility] ZAASL9050-63-27 23:06:008.0MH [facility] UXILH2191-60-71 23:06:39820BO [facility] PANEL 2017-08-15 23:06:29286UK [facility] ETDKN5847-02-22 23:06:0025 [facility] DOUWR1669-46-61 23:06:0021MH [facility] ZAOYJ5376-55-33 23:06:00* Test Item Value Reference Range Interpretation Comments B/C Ratio (test code = B/C Ratio) 13 1 6-25 [facility] RKOQF5956-61-91 23:06:0012.0 [facility] QCREN2314-99-87 23:06:000.5MH [facility] CGUVJ2015-02-04 23:06:00* Test Item Value Reference Range Interpretation Comments A/G Ratio (test code = A/G Ratio) 0.7 1 0.7-1.6 [facility] THFAA1306-10-16 23:06:004.8 [facility] BZQFP4065-40-93 23:06:001.03 [facility] DWTHN3952-06-13 23:06:0013 [facility] PANEL 2017-08-15 23:06:004.0 [facility] PDPNU5600-80-31 23:06:03822DO [facility] CPPBV8021-74-86 23:06:0078 FbqbfdztbHOIKPVKBYF2782-56-26 23:06:000.6MH NslbwmgmvJAVGFBRHDT7450-93-68 23:06:001.7 XppzzeykbOQTKOOXWUL4748-43-63 23:06:004.4 GzjyhfmrlJXHEZCIHTL6161-05-96 23:06:0010.2M [facility]Y 2017-08-15 23:06:001.6M TsrieeegvAATNLKTTUM0142-02-46 23:06:000.1MH [facility] LDTQLPNOWG3192-93-36 23:06:000.7 SlflpramuGRFMRQVIGB3006-99-49 23:06:0023.6M YmdvpjtzuYPUCQUJRES5941-32-34 23:06:0063.9 AocgfloaoSLQTPFWAKM9468-99-72 23:06:00* Test Item Value Reference Range Interpretation Comments MCH (test code = MCH) 31.6 pg 27.0-31.0 VpvndoxifCXQCXWWTAL5405-06-93 23:06:0095.7[facility]LeghjngvpYNLNWFJKNX0375-70-47 23:06:0033.0[facility] HospitalHktflvapbGAARBUCIUG8058-86-64 23:06:007.2M [facility] 2017-08-15 23:06:0015.9 RjvzhgjqhNNKHHPAGJY6846-45-29 23:06:40650KNMur[facility] Hospital FFVNIIFLCJ4185-83-25 23:06:0013.3[facility] CenterUwmvrpaorHVNSZKMUVF4297-31-31 23:06:0040.2[facility] CenterHvyctmlblWKXAOTVFZG8066-87-08 23:06:004.20[facility] HospitalGmgivaurqYITNCCOOTL7694-84-32 23:06:006.8 [facility] ESOHP9259-63-72 22:59:003 [facility] EMWYR4571-37-88 22:59:001 [facility] BYXUY5637-05-23 22:59:00Negative *NA*(08/15/17 4:59 PM) [facility] ZTMSA9754-35-39 22:59:00Negative (08/15/17 4:59 PM) [facility] THTHB8319-52-05 22:59:00Negative (08/15/17 4:59 PM) [facility] QLSJV0099-66-53 22:59:00Small *ABN*(08/15/17 4:59 PM) [facility] TFNQX3533-88-97 22:59:00* Test Item Value Reference Range Interpretation Comments UA pH (test code = UA pH) 6.0 1 5.0-8.0 [facility] ZKSDR6495-41-57 22:59:00* Test Item Value Reference Range Interpretation Comments UA Spec Grav (test code = UA Spec Grav) 1.009 1 [facility] FACQU6469-12-25 22:59:00Clear (08/15/17 4:59 PM)[facility] CHE[facility] QDPCT3519-60-47 15:15:0091[facility]CHE[facility] BHNZK9542-14-23 15:15:000.9MH DvasohklrMJLROSGGRZFD9462-73-18 09:38:0010.9 BtmitkpghTNGVXPXRWWYQ6075-06-60 09:38:0097MH ZempohewaZTHMQYHCYCND0045-31-22 09:38:008.1MH SoutheastELECTROLYTES 2017-04-30 09:38:0027MH KbrydlgcdPPTXHNTZVTDH9925-35-28 09:38:003.9MH [facility] MBPALNYCJVLX3357-24-74 09:38:59143TK YfozyiuklOWWGEVSNFBMG5993-89-10 09:38:40904 PhyvnmlbqUAGWJCSRSVUT6314-43-67 09:38:0015MH PgkxidwoaRBQEMLAHXIXX5800-13-04 09:38:000.76MH XhzrillzcZTVBUSHHDUZI9713-39-23 09:38:0084 [facility] 2017-04-30 09:38:0033.2MH XhqgomvemQKVOJMVIVV1725-19-07 09:38:00* Test Item Value Reference Range Interpretation Comments MCH (test code = MCH) 30.2 pg 27.0-31.0 ZuondwabwKPXOONPQEN3360-76-47 09:38:0090.9 QzniqfrgqINEKFJNNRT1250-39-74 09:38:0034.4 MrulezsqjOZZTBPIRNT0920-80-43 09:38:007.0 [facility] 2017-04-30 09:38:91473LQ JhcoyleklNMVQXYLSPS1268-29-26 09:38:0015.7[facility] TXLMUTNZMG4434-79-93 09:38:0011.4 EjrkaikybWYWTGTTCFA2077-40-92 09:38:003.78 RdjsivixkMKVHPCLNZA1082-52-12 09:38:005.6MH AwxicfgqvWAKIODROZI4425-52-36 09:38:000.5 QmtuweotlWOTKLDPIOV7600-08-90 09:38:000.2MH [facility] 2017-04-30 09:38:001.5 TxpqesbgrQQCYBLBVOB6335-54-77 09:38:008.9 [facility] HJDCSECWSK8862-99-18 09:38:0026.3MH KdyvqkkqlBYGMFYPWEI0566-84-78 09:38:0059.6MH BqlrtlvucQACNRAAYZB6445-98-64 09:38:003.3M PivokklrsVVRIDEILBF2457-00-12 09:38:000.8 NzvzcyabbSDUKXKMFLX5036-08-11 09:38:004.4 [facility] PANEL 2017-04-29 16:58:000.95MH [facility] NMLVU6239-40-55 16:58:0015 [facility] MHDAY9623-84-58 16:58:0096MH [facility] DXUJG8905-63-51 16:58:008.7 [facility] PGXVO6496-22-24 16:58:0030 [facility] TTBQV2440-61-33 16:58:57100XD [facility] EFEUW4115-50-00 16:58:003.7 [facility] PANEL 2017-04-29 16:58:14927MM [facility] KFDBR9467-95-63 16:58:0085 [facility] IGCWV6676-46-15 16:58:0010.7 YkwoeisvfKGAEGZBVLV3730-56-78 16:58:0025.1M XuyqtkcdlJIQDCLJWJA3163-61-58 16:58:0064.2M NxgatyxxhNVXMSEATKA5878-97-10 16:58:007.0 VigwsjzwiLUQPWSBAWO0904-94-07 16:58:000.9 [facility] 2017-04-29 16:58:003.9 GjxecpbvnHVPRRGCICC4914-77-15 16:58:002.8 [facility] XFTBPCLHEB4760-39-53 16:58:001.5 FxpibqumaYSMLNBSEFM3674-67-27 16:58:000.2MH HqvaoggoxKYAJPOHTHS6801-68-86 16:58:000.1MH GeovjwlstNVUMGMKPUY5232-12-18 16:58:000.4 VyovdhjazXAPVUTKJQK1627-26-36 16:58:10734CS [facility] 2017-04-29 16:58:0015.7 BedigjmlrONLRRQAEZU7383-90-80 16:58:006.9 [facility] CEYYLAPTOX8740-81-76 16:58:0032.7 NnxhdcvljBOIJPYQVGH9018-38-12 16:58:004.34 RzjbwanznGZWPEMOGAY7646-73-27 16:58:006.0 OtbovluevDUVKVLSZMK0171-09-02 16:58:0039.6MH NtjinbailGXUOSWQGQA1970-57-40 16:58:0091.3MH [facility] 2017-04-29 16:58:00* Test Item Value Reference Range Interpretation Comments MCH (test code = MCH) 29.8 pg 27.0-31.0 [facility] HospitalRucyyfrdbEEEPFUKHJL2197-27-19 16:58:0013.0 XnbzakiifPHAPGJ3949-30-97 16:58:0029[facility] HospitalRvrzkumozREDWLQ2503-68-27 16:58:0096 FuxwqlwjdGPMGDT5602-20-70 16:58:01636VW QnhyxklnkFMAZUL8060-49-63 16:58:26022DMMurphy Army HospitalNxfbfpzsdHPSUMU8864-63-71 16:58:0059[facility] HospitalDleauqbloSPTQFC9991-58-27 16:58:003.12 [facility]TISSUE EXAM 2017-02-26 16:06:00Surgical Pathology Report Case: [id number] Authorizing Provider: Aaron Mccullough Collected: 02/22/2017 1637 Ordering Location: [address] Received: 02/24/2017 0912 Service Pathologist: Lela Saravia MD Specimen: Biopsy, Esophagus LOWER ESOPHAGUS, ENDOSCOPIC BIOPSY - SQUAMOUS MUCOSA WITH MILD EDEMA - NO FEATURES OF REFLUX OR EOSINOPHILIC ESOPHAGITIS SEEN - NO COLUMNAR MUCOSA PRESENT - NO DYSPLASIA OR MALIGNANCY SEENThe case was presented at the departmental consensus conference on 02/26/17 Signing Pathologist Direct Phone Line: [phone] signed by Lela Saravia MD on 02/26/2017 at 4:06 [id number] biopsyReceived in formalin labeled "biopsy, esophagus" are four fragments measuring 0.9 x 0.8 x 0.1 cm in aggregate. Entirely submitted A1. DB/plPERFORMEDCOMPREHENSIVE METABOLIC CUAJO2370-52-73 06:01:00* Test Item Value Reference Range Interpretation [...] DIALYSIS PATIENTS. CBC W/PLT COUNT & AUTO VLGOZYIPJDWT3197-06-68 05:28:00* Test Item Value Reference Range Interpretation [...] (test code = 2801) 0 % 0-1 UWRZQRWJBN5488-51-83 06:49:00* Test Item Value Reference Range Interpretation Comments PHOSPHORUS (BEAKER) (test code = 604) 4.0 mg/dL 2.3-4.7 YRTFYCSHS5064-24-69 06:49:00* Test Item Value Reference Range Interpretation Comments MAGNESIUM (BEAKER) (test code = 627) 1.9 mg/dL 1.6-2.6 COMPREHENSIVE METABOLIC YKVMS8295-84-80 06:49:00* Test Item Value Reference Range Interpretation [...] DIALYSIS PATIENTS. CBC W/PLT COUNT & AUTO EVMAXHAECOCR0283-95-32 05:59:00* Test Item Value Reference Range Interpretation [...] (test code = 2801) 0 % 0-1 PT/WEMC3736-03-15 03:59:00* Test Item Value Reference Range Interpretation [...] 2.5-3.5 for pat ients with mechanical heart valves.ZOGRDD1256-23-48 03:54:00* Test Item Value Reference Range Interpretation Comments LIPASE (BEAKER) (test code = 819) 38 U/L 8-78 VHAARRB1737-37-00 03:54:00* Test Item Value Reference Range Interpretation Comments AMYLASE (BEAKER) (test code = 349) 68 U/L 25-125 COMPREHENSIVE METABOLIC RLFJF9562-84-94 03:54:00* Test Item Value Reference Range Interpretation [...] NOT APPLICABLE FOR DIALYSIS PATIENTS. HEPATIC FUNCTION WFHEK3086-43-90 03:54:00* Test Item Value Reference Range Interpretation [...] U/L 6-55 CBC W/PLT COUNT & AUTO DCCALVFCCAFZ9619-32-50 03:41:00* Test Item Value Reference Range Interpretation [...] = 2801) 0 % 0-1 HEMOGLOBIN AND TGMBGSJSPV2185-44-38 11:59:00* Test Item Value Reference Range Interpretation Comments HEMOGLOBIN (BEAKER) (test code = 410) 10.0 GM/DL 13.7-17.5 L HEMATOCRIT (BEAKER) (test code = 411) 31.5 % 40.1-51.0 L TISSUE QOGZ1186-66-29 11:34:00Surgical Pathology Report Case: [id number] Authorizing Provider: Leeanna Ma MD Collected: 02/03/2017 1350 Ordering Location: [address] Received: 02/03/2017 8698 Pathologist: Lela Saravia MD Specimens: A) - Antrum, bx r/o h pylori evaluate atrophic gastritis B) - Gastric, BX R/O H PYLORI EVALUATE ATROPHIC GASTRITIS This addendum is issued to report the result of immunohistochemical stain for Helicobacter pylori on specimen A: - NegativeCPT code: 54646Ffvvmans electronically signed by Lela Saravia MD on [...] STAIN - NEGATIVE FOR DYSPLASIA OR MALIGNANCY 61821 X 2; 81319 X 2Melena, rule out H. Pylori, rule [...] the diagnostic report above:WARTHIN-STARRY X 2HEMOGLOBIN AND PIICFJEKMF8493-14-21 04:18:00* Test Item Value Reference Range Interpretation [...] 0 /100 WBC 0 -0 HEMOGLOBIN AND AUILXREGAJ7537-87-17 21:26:00* Test Item Value Reference Range Interpretation Comments HEMOGLOBIN (BEAKER) (test code = 410) 7.7 GM/DL 13.7-17.5 L HEMATOCRIT (BEAKER) (test code = 411) 24.6 % 40.1-51.0 L YGEJESIX8267-23-92 19:21:00* Test Item Value Reference Range Interpretation [...] 8 % 20-5 5 L HEMOGLOBIN AND IBEVKATKGD3398-14-95 18:44:00* Test Item Value Reference Range Interpretation Comments HEMOGLOBIN (BEAKER) (test code = 410) 8.1 GM/DL 13.7-17.5 L HEMATOCRIT (BEAKER) (test code = 411) 25.3 % 40.1-51.0 L HEMOGLOBIN AND NWKZWEJMDQ3205-39-83 10:09:00* Test Item Value Reference Range Interpretation Comments HEMOGLOBIN (BEAKER) (test code = 410) 8.3 GM/DL 13.7-17.5 L HEMATOCRIT (BEAKER) (test code = 411) 27.0 % 40.1-51.0 L BASIC METABOLIC JZIWH0985-65-70 04:32:00* Test Item Value Reference Range Interpretation [...] GFR IS NOT APPLICABLE FOR DIALYSIS PATIENTS. PJQGJUUHKQ3967-19-60 04:30:00* Test Item Value Reference Range Interpretation Comments PHOSPHORUS (BEAKER) (test code = 604) 2.8 mg/dL 2.3-4.7 ROGMWCITQ8047-99-13 04:30:00* Test Item Value Reference Range Interpretation Comments MAGNESIUM (BEAKER) (test code = 627) 1.9 mg/dL 1.6-2.6 PT/KNJP1034-36-85 04:20:00* Test Item Value Reference Range Interpretation [...] for pat ients with mechanical heart valves.PROTHROMBIN TIME/WNZ6347-06-18 04:19:00* Test Item Value Reference Range Interpretation [...] 0 /100 WBC 0 -0 HEMOGLOBIN AND MSHDSHPHFW1324-04-08 04:09:00* Test Item Value Reference Range Interpretation Comments HEMOGLOBIN (BEAKER) (test code = 410) 8.0 GM/DL 13.7-17.5 L HEMATOCRIT (BEAKER) (test code = 411) 25.2 % 40.1-51.0 L HEMOGLOBIN AND XSBVZZKGAP4915-21-66 20:58:00* Test Item Value Reference Range Interpretation Comments HEMOGLOBIN (BEAKER) (test code = 410) 8.0 GM/DL 13.7-17.5 L HEMATOCRIT (BEAKER) (test code = 411) 25.6 % 40.1-51.0 L HEMOGLOBIN AND GKWLSPBVBG2730-43-28 12:21:00* Test Item Value Reference Range Interpretation Comments HEMOGLOBIN (BEAKER) (test code = 410) 8.7 GM/DL 13.7-17.5 L HEMATOCRIT (BEAKER) (test code = 411) 27.6 % 40.1-51.0 L HEMOGLOBIN AND UTMIXARLAF0200-91-57 05:58:00* Test Item Value Reference Range Interpretation Comments HEMOGLOBIN (BEAKER) (test code = 410) 8.3 GM/DL 13.7-17.5 L HEMATOCRIT (BEAKER) (test code = 411) 26.3 % 40.1-51.0 L XFISTPTVIU9420-63-71 05:55:00* Test Item Value Reference Range Interpretation Comments PHOSPHORUS (BEAKER) (test code = 604) 2.8 mg/dL 2.3-4.7 STUSCONJW9220-47-09 05:55:00* Test Item Value Reference Range Interpretation Comments MAGNESIUM (BEAKER) (test code = 627) 2.0 mg/dL 1.6-2.6 BASIC METABOLIC MITLM5316-10-31 05:55:00* Test Item Value Reference Range Interpretation [...] GFR IS NOT APPLICABLE FOR DIALYSIS PATIENTS. PT/XAZW3418-22-03 05:50:00* Test Item Value Reference Range Interpretation [...] pat ients with mechanical heart valves.HEMOGLOBIN AND BHWVOQHRNH6640-42-54 00:18:00 * Test Item Value Reference Range Interpretation Comments HEMOGLOBIN (BEAKER) (test code = 410) 8.2 GM/DL 13.7-17.5 L HEMATOCRIT (BEAKER) (test code = 411) 26.0 % 40.1-51.0 L HEMOGLOBIN AND GFKQRUMSSL0423-58-02 18:59:00* Test Item Value Reference Range Interpretation Comments HEMOGLOBIN (BEAKER) (test code = 410) 8.9 GM/DL 13.7-17.5 L HEMATOCRIT (BEAKER) (test code = 411) 28.1 % 40.1-51.0 L HEMOGLOBIN AND TRCWJUTTWL2318-71-34 13:15:00* Test Item Value Reference Range Interpretation [...] = 413) 0 /100 WBC 0 -0 RPOTRRKFID3683-73-42 06:41:00* Test Item Value Reference Range Interpretation Comments PHOSPHORUS (BEAKER) (test code = 604) 2.9 mg/dL 2.3-4.7 RVYALMMBE6147-03-94 06:41:00* Test Item Value Reference Range Interpretation Comments MAGNESIUM (BEAKER) (test code = 627) 2.3 mg/dL 1.6-2.6 BASIC METABOLIC OYTCL9624-71-28 06:41:00* Test Item Value Reference Range Interpretation [...] NOT APPLICABLE FOR DIALYSIS PATIENTS. HEMOGLOBIN AND TPNCAVCJDN5177-59-99 06:09:00* Test Item Value Reference Range Interpretation Comments HEMOGLOBIN (BEAKER) (test code = 410) 8.1 GM/DL 13.7-17.5 L HEMATOCRIT (BEAKER) (test code = 411) 25.3 % 40.1-51.0 L PROTHROMBIN TIME/UWJ0422-42-96 06:07:00* Test Item Value Reference Range Interpretation Comments PROTIME (BEAKER) (test code = 759) 13.9 seconds 11.7-14.7 INR (BEAKER) (test code = 370) 1.1 <=5.9 RECOMMENDED COUMADIN/WARFARIN INR THERAPY RANGESSTANDARD DOSE: 2.0 - 3.0 Inclu prabhakar: PROPHYLAXIS for venous thrombosis, systemic embolization; TREATMENT for marian ous thrombosis and/or pulmonary embolus.HIGH RISK: Target INR is 2.5-3.5 for pat ients with mechanical heart valves.PT/KMER1261-00-43 06:07:00* Test Item Value Reference Range Interpretation [...] 2.5-3.5 for pat ients with mechanical heart valves.NDBG9719-23-87 00:56:00* Test Item Value Reference Range Interpretation Comments PARTIAL THROMBOPLASTIN TIME (BEAKER) (test code = 760) 28.2 seconds 22.5-36.0 PROTHROMBIN TIME/CJD6204-20-37 00:55:00* Test Item Value Reference Range Interpretation Comments PROTIME (BEAKER) (test code = 759) 14.3 seconds 11.7-14.7 INR (BEAKER) (test code = 370) 1.1 <=5.9 RECOMMENDED COUMADIN/WARFARIN INR THERAPY RANGESSTANDARD DOSE: 2.0 - 3.0 Inclu prabhakar: PROPHYLAXIS for venous thrombosis, systemic embolization; TREATMENT for marian ous thrombosis and/or pulmonary embolus.HIGH RISK: Target INR is 2.5-3.5 for pat ients with mechanical heart valves.TWFLORTUAK7191-77-08 00:54:00* Test Item Value Reference Range Interpretation Comments PHOSPHORUS (BEAKER) (test code = 604) 3.6 mg/dL 2.3-4.7 RLDSIWHPZ0697-12-73 00:54:00* Test Item Value Reference Range Interpretation Comments MAGNESIUM (BEAKER) (test code = 627) 2.3 mg/dL 1.6-2.6 BASIC METABOLIC ZKGYY0351-57-56 00:54:00* Test Item Value Reference Range Interpretation [...] NOT APPLICABLE FOR DIALYSIS PATIENTS. HEMOGLOBIN AND XRCVEGSJRV6944-39-30 00:34:00* Test Item Value Reference Range Interpretation [...] 0 -0 CBC W/PLT COUNT & AUTO FSHZPYFFYLYT6876-43-67 00:34:00* Test Item Value Reference Range Interpretation [...] 0 % 0-1 FOREARM RIGHT 2 VIEW [place] [address] Patient Name: TERESA WARD MR #: [id number] : 1955 Age/Sex: 61/M Req #: [id number] Adm Physician: Ordered by: BALDO MONDRAGON MD Report #: [id number] Location: ER Room/Bed: Procedure: [id number] DX/FOREARM RIGHT 2 VIEW Exam Da te: 04/25/17 Exam Time: 1850 REPORT STATUS: Sig ymail FOREARM RIGHT 2 VIEW HISTORY: Dog bite [...] MD 29 Transcribed By: CADEN on 04/25/171929 [employer]E [employer] Y TO: BALDO MONDRAGON MD LOWER LEG RIGHT [place] [address] Patient Name: TERESA WARD MR #: [id number] : 1955 Age/Sex: 61/M Req #: [id number] Adm Physician: Ordered by: BALDO MONDRAGON MD Report #: [id number] Location: ER Room/Bed: Procedure: [id number] DX/LOWER LEG RIGHT Exam Date: Exam Time: [...]
[2019-12-04] MEDS ORDERED: METOPROLOL TARTRATE INJ 1 MG/ML VIAL ONE (08:27)
[2019-12-04] MEDS ORDERED: ONDANSETRON HCL INJ 2MG/ML 2ML 2 MG/ML VIAL ONE (08:31)
[2019-12-04] MEDS ORDERED: SODIUM CHLORIDE 0.9% 1000ML 1,000 ML IV STA (08:34)
[2019-12-04] MEDS ORDERED: ONDANSETRON HCL INJ 2MG/ML 2ML 2 MG/ML VIAL IV STA (08:34)
[2019-12-04] MEDS ORDERED: ASPIRIN 81 MG CHEW TAB PO ONE (08:45)
[2019-12-04 08:49] LABS: BASOPHILS % 0.5 % (0.0-1.0); EOSINOPHILS # (AUTO) 0.3 (0.0-0.4); EOSINOPHILS % 3.4 % (0.0-6.0); HEMATOCRIT 43.6 % (38.2-49.6); HEMOGLOBIN 14.2 g/dL (14.0-18.0); LYMPHOCYTES # (AUTO) 2.4 (1.0-3.2); LYMPHOCYTES % 31.6 % (18.0-39.1); MEAN CORPUSCULAR HGB CONC 32.6 g/dL (31-35); MEAN CORPUSCULAR VOLUME 95.2 fL (81-99); MONOCYTES # (AUTO) 0.6 (0.2-0.8); NEUTROPHILS # (AUTO) 4.4 (2.1-6.9); NEUTROPHILS % 56.2 % (38.7-80.0); PLATELET COUNT 112 x10e3/uL (140-360); RED BLOOD COUNT 4.58 x10e6/uL (4.3-5.7); RED CELL DISTRIBUTION WIDTH 14.1 % (11.7-14.4)
[2019-12-04 09:00] LABS: INR 0.92; PARTIAL THROMBOPLASTIN TIME 28.6 seconds (23.8-35.5); PROTHROMBIN TIME 12.9 seconds (11.9-14.5)
[2019-12-04] MEDS ORDERED: NITROGLYCERIN 0.4 MG SUBL SL PRN (09:00)
[2019-12-04] MEDS ORDERED: MORPHINE SULFATE 2 MG/ML SYR 1ML IV PRN (09:00)
[2019-12-04] MEDS ORDERED: ONDANSETRON HCL INJ 2MG/ML 2ML 2 MG/ML VIAL IV PRN (09:00)
[2019-12-04] MEDS ORDERED: AMIODARONE HCL 360MG 200 ML IV SCH ×2 (09:00→12:00)
--- NOTE | 2019-12-04 09:07 | NUR ---
pt on pacer/defib pads on with crash cart. multiple runs of vtach
[2019-12-04 09:08] LABS: ALBUMIN 3.4 g/dL (3.5-5.0); ALBUMIN/GLOBULIN RATIO 0.8 (0.8-2.0); ANION GAP 21.4 mmol/L (8-16); CALCIUM 9.1 mg/dL (8.4-10.2); CREATININE, SERUM 1.58 mg/dL (0.72-1.25); MAGNESIUM 1.5 MG/DL (1.3-2.1); POTASSIUM 3.4 mmol/L (3.5-5.1)
--- NOTE | 2019-12-04 09:08 | NUR ---
pt now intermittantly paced with capture and into sinus intiated rhymth previous runs of vtach with low bp. intermittantly unstable. arrival afib rvr with pt dening hx of afib.
[2019-12-04] MEDS: ASPIRIN 81 MG ENTERIC COATED PO SCH (09:11)
[2019-12-04 09:15] LABS: CREATINE KINASE MB 2.2 ng/mL (0-5.0)
[2019-12-04] MEDS ORDERED: AMIODARONE HCL 150MG 100 ML IV ONE (09:15)
[2019-12-04] MEDS: FAMOTIDINE 20 MG/2 ML VIAL IV SCH ×2 (09:35→21:09)
[2019-12-04] MEDS: ENOXAPARIN SODIUM INJ 100 MG/ML SYR SC SCH ×2 (09:37→21:10)
--- NOTE | 2019-12-04 09:42 | Diagnostic Imaging Report ---
EXAMINATION: CHEST SINGLE (PORTABLE) INDICATION: upper back pain COMPARISON: Chest radiograph 11-26-2019. FINDINGS: TUBES and LINES: Left-sided AICD in unchanged position. LUNGS: Low lung volumes. Mild perihilar and interstitial opacities. Patchy opacities in the left lower lung. Elevation of the left hemidiaphragm. PLEURA: Trace left pleural effusion. No pneumothorax. HEART AND MEDIASTINUM: The cardiomediastinal silhouette is mildly enlarged. There are atherosclerotic calcifications within the aorta. BONES AND SOFT TISSUES: No acute osseous lesion. Soft tissues are unremarkable. UPPER ABDOMEN: No free air under the diaphragm. IMPRESSION: Mild pulmonary interstitial edema. Unchanged patchy left basilar opacity, more likely atelectasis than infection. Trace left pleural effusion. Signed by: Dr. Vijaya Wright MD on 12/04/2019 9:39 AM
--- OUTSIDE RECORDS SUMMARY | 2019-12-04 09:47 | XMS REPORT | Continuity of Care Document ---
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 0.0 - 0.5 09/02/2017 [facility] Lymphocytes 25.0 20.0 - 40.0 09/02/2017 [facility] HEMATOLOGY Monocytes 7.5 2.0 - 12.0 09/02/2017 [facility] HEMATOLOGY Segs 62.7 45.0 - 75.0 09/02/2017 [facility] MCHC 32.9 32.0 - 36.0 09/02/2017 [facility] MCH 31.3 27.0 - 31.0 09/02/2017 [facility] MCV 94.9 80.0 - 94.0 09/02/2017 [facility] Hct 39.6 42.0 - 54.0 09/02/2017 [facility] RDW 14.7 11.5 - 14.5 09/02/2017 [facility] HEMATOLOGY MPV 7.1 7.4 - 10.4 09/02/2017 [facility] HEMATOLOGY Platelet 172 133 - 450 09/02/2017 [facility] HEMATOLOGY Hgb 13.0 14.0 - 18.0 09/02/2017 [facility] HEMATOLOGY RBC 4.17 4.70 - 6.10 09/02/2017 [facility] HEMATOLOGY WBC 5.4 3.7 - 10.4 09/02/2017 [facility] HEMATOLOGY INR 1.05 0.85 - 1.17 09/02/2017 [facility] HEMATOLOGY PT 13.7 12.0 - 14.7 09/02/2017 [facility] URINE AND STOOL UA Bacteria Occasional /HPF None Seen /HPF 09/02/2017 [facility] URINE AND STOOL UA RBC >100 /HPF 0 - 2 09/02/2017 [facility] URINE AND STOOL UA WBC 3-5 /HPF 0 - 5 09/02/2017 [facility] URINE AND STOOL UA Sq Epi None Seen (09/02/17 6:06 AM) Few 09/02/2017 [facility] URINE AND STOOL Micro? Performed (09/02/17 6:06 AM) 09/02/2017 [facility] URINE AND STOOL UA Leuk Est Moderate *ABN* (09/02/17 6:06 AM) Negative 09/02/2017 [facility] URINE AND STOOL UA Ketones 15 09/02/2017 [facility] URINE AND STOOL UA pH 7.0 5.0 - 8.0 09/02/2017 [facility] URINE AND STOOL UA Bili Negative (09/02/17 6:06 AM) Negative 09/02/2017 [facility] URINE AND STOOL UA Blood Large *ABN* (09/02/17 6:06 AM) Negative 09/02/2017 [facility] URINE AND STOOL UA Turbidity Marked *ABN* (09/02/17 6:06 AM) Clear 09/02/2017 [facility] URINE AND STOOL UA Spec Grav 1.010 <=1.030 09/02/2017 [facility] URINE AND STOOL UA Glucose Negative (09/02/17 6:06 AM) Negative 09/02/2017 [facility] URINE AND STOOL UA Protein >=300 mg/dL Negative mg/dL 09/02/2017 [facility] URINE AND STOOL UA Urobilinogen 4.0 0.1 - 1.0 09/02/2017 [facility] URINE AND STOOL UA Nitrite Positive *ABN* (09/02/17 6:06 AM) Negative 09/02/2017 [facility] URINE AND STOOL UA Color Red *ABN* (09/02/17 6:06 AM) Yellow 09/02/2017 [facility] CARDIAC ENZYMES Troponin-I <0.02 0.00 - 0.40 08/15/2017 [facility] CARDIAC ENZYMES CK MB Index 1.5 0.0 - 2.5 08/15/2017 [facility] CARDIAC ENZYMES CK MB 1.9 0.5 - 3.6 08/15/2017 [facility] CARDIAC ENZYMES Total CK 129 12 - 191 08/15/2017 [facility] CHEM PANEL eGFR 77 08/15/2017 Result Comment: [...] should be multiplied by the estimated BMI. [facility] CHEM PANEL Calcium Lvl 7.9 8.5 - 10.5 08/15/2017 [facility] CHEM PANEL CO2 28 24 - 32 08/15/2017 [facility] CHEM PANEL Albumin Lvl 3.2 3.5 - 5.0 08/15/2017 [facility] CHEM PANEL Total Protein 8.0 6.4 - 8.4 08/15/2017 [facility] CHEM PANEL Chloride Lvl 106 95 - 109 08/15/2017 [facility] CHEM PANEL Alk Phos 103 39 - 136 08/15/2017 [facility] CHEM PANEL AST 25 0 - 37 08/15/2017 [facility] CHEM PANEL ALT 21 0 - 65 08/15/2017 [facility] CHEM PANEL B/C Ratio 13 6 - 25 08/15/2017 [facility] CHEM PANEL AGAP 12.0 10.0 - 20.0 08/15/2017 [facility] CHEM PANEL Bili Total 0.5 0.2 - 1.3 08/15/2017 [facility] CHEM PANEL A/G Ratio 0.7 0.7 - 1.6 08/15/2017 [facility] CHEM PANEL Globulin 4.8 2.7 - 4.2 08/15/2017 [facility] CHEM PANEL Creatinine Lvl 1.03 0.50 - 1.40 08/15/2017 [facility] CHEM PANEL BUN 13 7 - 22 08/15/2017 [facility] CHEM PANEL Potassium Lvl 4.0 3.5 - 5.1 08/15/2017 [facility] CHEM PANEL Sodium Lvl 142 135 - 145 08/15/2017 [facility] CHEM PANEL Glucose Lvl 78 70 - 99 08/15/2017 [facility] HEMATOLOGY Basophils 0.6 0.0 - 1.0 08/15/2017 [facility] HEMATOLOGY Eosinophils 1.7 0.0 - 4.0 08/15/2017 [facility] HEMATOLOGY Segs-Bands # 4.4 1.5 - 8.1 08/15/2017 [facility] HEMATOLOGY Monocytes 10.2 2.0 - 12.0 08/15/2017 [facility] HEMATOLOGY Lymphocytes # 1.6 1.0 - 5.5 08/15/2017 [facility] HEMATOLOGY Eosinophils # 0.1 0.0 - 0.5 08/15/2017 [facility] HEMATOLOGY Monocytes # 0.7 0.0 - 0.8 08/15/2017 [facility] HEMATOLOGY Lymphocytes 23.6 20.0 - 40.0 08/15/2017 [facility] HEMATOLOGY Segs 63.9 45.0 - 75.0 08/15/2017 [facility] HEMATOLOGY MCH 31.6 27.0 - 31.0 08/15/2017 [facility] HEMATOLOGY MCV 95.7 80.0 - 94.0 08/15/2017 [facility] MCHC 33.0 32.0 - 36.0 08/15/2017 [facility] HEMATOLOGY MPV 7.2 7.4 - 10.4 08/15/2017 [facility] HEMATOLOGY RDW 15.9 11.5 - 14.5 08/15/2017 [facility] HEMATOLOGY Platelet 138 133 - 450 08/15/2017 [facility] HEMATOLOGY Hgb 13.3 14.0 - 18.0 08/15/2017 [facility] HEMATOLOGY Hct 40.2 42.0 - 54.0 08/15/2017 [facility] HEMATOLOGY RBC 4.20 4.70 - 6.10 08/15/2017 [facility] HEMATOLOGY WBC 6.8 3.7 - 10.4 08/15/2017 [facility] URINE AND STOOL UA Urobilinogen <=1.0 mg/dL 0.1 - 1.0 08/15/2017 [facility] URINE AND STOOL UA Color Ltyellow 08/15/2017 [facility] URINE AND STOOL UA Sq Epi None Seen 08/15/2017 [facility] URINE AND STOOL UA RBC 3 0 - 2 08/15/2017 [facility] URINE AND STOOL UA Protein Negative mg/dL Negative mg/dL 08/15/2017 [facility] URINE AND STOOL UA Glucose Negative mg/dL Negative mg/dL 08/15/[address] [facility] URINE AND STOOL UA WBC 1 0 - 5 08/15/2017 [facility] URINE AND STOOL UA Ketones Negative mg/dL Negative mg/dL 08/15/2017 [facility] URINE AND STOOL UA Bili Negative *NA* (08/15/17 4:59 PM) Negative 08/15/2017 [facility] URINE AND STOOL UA Leuk Est Negative (08/15/17 4:59 PM) Negative 08/15/2017 [facility] URINE AND STOOL UA Nitrite Negative (08/15/17 4:59 PM) Negative 08/15/2017 [facility] URINE AND STOOL UA Blood Small *ABN* (08/15/17 4:59 PM) Negative 08/15/2017 [facility] URINE AND STOOL UA pH 6.0 5.0 - 8.0 08/15/2017 [facility] URINE AND STOOL UA Spec Grav 1.009 <=1.030 08/15/2017 [facility] URINE AND STOOL UA Turbidity Clear (08/15/17 4:59 PM) Clear 08/15/2017 [facility] CHEM PANEL eGFR 91 06/12/2017 Result Comment: [...] should be multiplied by the estimated BMI. [facility] CHEM PANEL POC Creatinine 0.9 0.5 - 1.4 06/12/2017 [facility] ELECTROLYTES AGAP 10.9 10.0 - 20.0 04/30/2017 [facility] ELECTROLYTES eGFR 97 04/30/2017 Result Comment: The [...] should be multiplied by the estimated BMI. [facility] ELECTROLYTES Calcium Lvl 8.1 8.5 - 10.5 04/30/2017 [facility] ELECTROLYTES CO2 27 24 - 32 04/30/2017 [facility] ELECTROLYTES Potassium Lvl 3.9 3.5 - 5.1 04/30/2017 [facility] ELECTROLYTES Sodium Lvl 141 135 - 145 04/30/2017 [facility] ELECTROLYTES Chloride Lvl 107 95 - 109 04/30/2017 [facility] ELECTROLYTES BUN 15 7 - 22 04/30/2017 [facility] ELECTROLYTES Creatinine Lvl 0.7 6 0.50 - 1.40 04/30/2017 [facility] ELECTROLYTES Glucose Lvl 84 70 - 99 04/30/2017 [facility] HEMATOLOGY MCHC 33.2 32.0 - 36.0 04/30/2017 [facility] HEMATOLOGY MCH 30.2 27.0 - 31.0 04/30/2017 [facility] HEMATOLOGY MCV 90.9 80.0 - 94.0 04/30/2017 [facility] HEMATOLOGY Hct 34.4 42.0 - 54.0 04/30/2017 [facility] HEMATOLOGY MPV 7.0 7.4 - 10.4 04/30/2017 [facility] HEMATOLOGY Platelet 164 133 - 450 04/30/2017 [facility] HEMATOLOGY RDW 15.7 11.5 - 14.5 04/30/2017 [facility] HEMATOLOGY Hgb 11.4 14.0 - 18.0 04/30/2017 [facility] HEMATOLOGY RBC 3.78 4.70 - 6.10 04/30/2017 [facility] HEMATOLOGY WBC 5.6 3.7 - 10.4 04/30/2017 [facility] HEMATOLOGY Monocytes # 0.5 0.0 - 0.8 04/30/2017 [facility] HEMATOLOGY Eosinophils # 0.2 0.0 - 0.5 04/30/2017 [facility] HEMATOLOGY Lymphocytes # 1.5 1.0 - 5.5 04/30/2017 [facility] HEMATOLOGY Monocytes 8.9 2.0 - 12.0 04/30/2017 [facility] Lymphocytes 26.3 20.0 - 40.0 04/30/2017 [facility] HEMATOLOGY Segs 59.6 45.0 - 75.0 04/30/2017 [facility] HEMATOLOGY Segs-Bands # 3.3 1.5 - 8.1 04/30/2017 [facility] Basophils 0.8 0.0 - 1.0 04/30/2017 [facility] HEMATOLOGY Eosinophils 4.4 0.0 - 4.0 04/30/2017 [facility] CHEM PANEL Creatinine Lvl 0.95 0.50 - 1.40 04/29/2017 [facility] CHEM PANEL BUN 15 7 - 22 04/29/2017 [facility] CHEM PANEL Glucose Lvl 96 70 - 99 04/29/2017 [facility] CHEM PANEL Calcium Lvl 8.7 8.5 - 10.5 04/29/2017 [facility] CHEM PANEL CO2 30 24 - 32 04/29/2017 [facility] CHEM PANEL Chloride Lvl 101 95 - [...] should be multiplied by the estimated BMI. [facility] CHEM PANEL AGAP 10.7 10.0 - 20.0 04/29/2017 [facility] HEMATOLOGY Lymphocytes 25.1 20.0 - 40.0 04/29/2017 [facility] HEMATOLOGY Segs 64.2 45.0 - 75.0 04/29/2017 [facility] HEMATOLOGY Monocytes 7.0 2.0 - 12.0 04/29/2017 [facility] HEMATOLOGY Basophils 0.9 0.0 - 1.0 04/29/2017 [facility] HEMATOLOGY Segs-Bands # 3.9 1.5 - 8.1 04/29/2017 [facility] HEMATOLOGY Eosinophils 2.8 0.0 - 4.0 04/29/2017 [facility] HEMATOLOGY Lymphocytes # 1.5 1.0 - 5.5 04/29/2017 [facility] HEMATOLOGY Eosinophils # 0.2 0.0 - 0.5 04/29/2017 [facility] HEMATOLOGY Basophils # 0.1 0.0 - 0.2 04/29/2017 [facility] HEMATOLOGY Monocytes # 0.4 0.0 - 0.8 04/29/2017 [facility] HEMATOLOGY Platelet 190 133 - 450 04/29/2017 [facility] HEMATOLOGY RDW 15.7 11.5 - 14.5 04/29/2017 [facility] MPV 6.9 7.4 - 10.4 04/29/2017 [facility] MCHC 32.7 32.0 - 36.0 04/29/2017 [facility] HEMATOLOGY RBC 4.34 4.70 - 6.10 04/29/2017 [facility] WBC 6.0 3.7 - 10.4 04/29/2017 [facility] HEMATOLOGY Hct 39.6 42.0 - 54.0 04/29/2017 [facility] HEMATOLOGY MCV 91.3 80.0 - 94.0 04/29/2017 [facility] HEMATOLOGY MCH 29.8 27.0 - 31.0 04/29/2017 [facility] HEMATOLOGY Hgb 13.0 14.0 - 18.0 04/29/2017 [facility] LIPIDS VLDL 29 04/29/2017 [facility] LDL (Calculated) 96 <=99 mg/dL 04/29/2017 [facility] LIPIDS Trig 143 <=149 mg/dL 04/29/2017 [facility] LIPIDS Chol 184 <=199 mg/dL 04/29/2017 [facility] HDL 59 >=61 mg/dL 04/29/2017 [facility] CHD Risk 3.12 4.00 - 7.30 04/29/2017 [facility] Pathology Reports No Data Provided for This Section Diagnostic Reports Report Value Date Source Abdomen/Pelvis CTA Patient Bereket abdul: TERESA WARD : 1955; Age: 63 years y/o Male MR: [id number] * CT ANGIOGRAPHY OF THE ABDOMEN \\T\\ [...] lumbar spine from L2 through S1. SL: [id number] 10/02/2018 [facility] Tibia fibula series DX Exam: [...] Impression: Right nephrolithiasis. Right ureteral stent. 11/18/2017 [facility] Abdomen AP DX Clinical Indicat ion: - [...] portion of the stent. BONILLA: [id number] 09/02/2017 [facility] Renal pyelogram retrograde DX Patient Name: TERESA WARD : 1955; Age: 61 years y/o Male MR: [id number] RETROGRADE PYELOGRAPHY, RIGHT HISTORY: Calculus at right [...] bladder. Please refer to urologist's notes. BONILLA: [id number] 08/16/2017 [facility] Scrotal/Testicle w Doppler US Testicular ultrasound with [...] right epididymal head cyst. SL: MORENO 08/16/2017 [facility] Abdomen/Pelvis CTA CTA ABDOMEN /PELVIS WITH CONTRAST [...] is interval increase in hydronephrosis. SL:16 08/16/2017 [facility] Chest 2 views DX Clinical Latoya cation: [...] from the previous study. SL: [id number]-M 08/15/2017 [facility] Chest/Abd/Pelvis CTA Patient N sharla: TERESA WARD : 1955; Age: 61 years y/o Male MR: [id number] Study: Chest/Abd/Pelvis CTA 06/12/2017 8:49 AM ENCAPSULATOR Ordering Physician: Rock Reese MD Clinical Indication: [...] thrombosed infrarenal abdominal aortic aneurysm sac. SL: [id number] 06/12/2017 [facility] Chest/Abdominal Aorta with Runoff CTA Patient Name: TERESA WARD : 1955; Age: 61 years y/o Male MR: [id number] Study: Chest/Abdominal Aorta with Runoff CTA 04/11/2017 [...] negative cervical spine series.. SL: 12 03/23/2014 [facility] Consultation Notes No Data Provided for This Section Discharge Summaries No Data Provided for This Section History and Physicals No Data Provided for This Section Vital Signs Vital Sign Value Date Comments Source Systolic (mm Hg) 173 11/26/2017 [facility] Diastolic (mm Hg) 65 11/26/2017 [facility] Systolic (mm Hg) 170 11/26/2017 [facility] Diastolic (mm Hg) 57 11/26/2017 [facility] Systolic (mm Hg) 169 11/26/2017 [facility] Diastolic (mm Hg) 57 11/26/2017 [facility] Respitory Rate 20 11/26/2017 [facility] Respitory Rate 18 11/26/2017 [facility] Heart Rate 56 11/26/2017 [facility] Respitory Rate 17 11/26/2017 [facility] Temperature Oral (F) 98.3 F 11/19/2017 [facility] Heart Rate 60 11/19/2017 [facility] Weight 86.08 11/19/2017 [facility] BMI Calculated 32.57 11/19/2017 [facility] Height 162.56 cm 11/19/2017 [facility] Heart Rate 71 09/10/2017 [facility] Respitory Rate 18 09/10/2017 [facility] Temperature Oral (F) 99.0 F 09/10/2017 [facility] Systolic (mm Hg) 165 09/10/2017 [facility] Diastolic (mm Hg) 61 09/10/2017 [facility] Height 162.56 cm 09/10/2017 [facility] Weight 84.091 09/10/2017 [facility] BMI Calculated 31.82 09/10/2017 [facility] Systolic (mm Hg) 104 09/02/2017 [facility] Diastolic (mm Hg) 82 09/02/2017 [facility] Respitory Rate 16 09/02/2017 [facility] Temperature Oral (F) 98.7 F 09/02/2017 [facility] Respitory Rate 16 09/02/2017 [facility] Temperature Oral (F) 98.7 F 09/02/2017 [facility] Systolic (mm Hg) 134 09/02/2017 [facility] Diastolic (mm Hg) 66 09/02/2017 [facility] Weight 81.818 09/02/2017 [facility] BMI Calculated 34.08 09/02/2017 [facility] Systolic (mm Hg) 125 09/02/2017 [facility] Diastolic (mm Hg) 81 09/02/2017 [facility] Height 154.94 cm 09/02/2017 [facility] Respitory Rate 18 09/02/2017 [facility] Heart Rate 85 09/02/2017 [facility] Temperature Oral (F) 98.3 F 09/02/2017 [facility] Systolic (mm Hg) 127 08/16/2017 [facility] Diastolic (mm Hg) 69 08/16/2017 [facility] Respitory Rate 16 08/16/2017 [facility] Heart Rate 64 08/16/2017 [facility] Temperature Oral (F) 97.5 F 08/16/2017 [facility] Heart Rate 73 08/16/2017 [facility] Systolic (mm Hg) 146 08/16/2017 [facility] Diastolic (mm Hg) 74 08/16/2017 [facility] Respitory Rate 16 08/16/2017 [facility] Systolic (mm Hg) 146 08/16/2017 [facility] Diastolic (mm Hg) 74 08/16/2017 [facility] Respitory Rate 16 08/16/2017 [facility] Heart Rate 73 08/16/2017 [facility] Temperature Oral (F) 97.5 F 08/16/2017 [facility] Temperature Oral (F) 98.2 F 08/16/2017 [facility] Height 160.02 cm 08/15/2017 [facility] Weight 81.818 08/15/2017 [facility] BMI Calculated 31.95 08/15/2017 [facility] Systolic (mm Hg) 124 04/30/2017 [facility] Diastolic (mm Hg) 67 04/30/2017 [facility] Respitory Rate 16 04/30/2017 [facility] Heart Rate 60 04/30/2017 [facility] Temperature Oral (F) 98.1 F 04/30/2017 [facility] Heart Rate 61 04/30/2017 [facility] Temperature Oral (F) 98.2 F 04/30/2017 [facility] Respitory Rate 16 04/30/2017 [facility] Systolic (mm Hg) 93 04/30/2017 [facility] Diastolic (mm Hg) 51 04/30/2017 [facility] Systolic (mm Hg) 98 04/30/2017 [facility] Diastolic (mm Hg) 49 04/30/2017 [facility] Respitory Rate 16 04/30/2017 [facility] Heart Rate 56 04/30/2017 [facility] Temperature Oral (F) 98.1 F 04/30/2017 [facility] BMI Calculated 32.68 04/29/2017 [facility] Weight 86.364 04/29/2017 [facility] Height 162.56 cm 04/29/2017 [facility] Diastolic (mm Hg) 68 03/23/2014 [facility] Respitory Rate 16 03/23/2014 [facility] Systolic (mm Hg) 163 03/23/2014 [facility] Temperature Oral (F) 97.8 F 03/23/2014 [facility] Heart Rate 60 03/23/2014 [facility] Weight 90.909 03/23/2014 [facility] [facility] Respitory Rate 16 03/23/2014 [facility] Temperature Oral (F) 98.1 F 03/23/2014 [facility] Diastolic (mm Hg) 77 03/23/2014 [facility] Heart Rate 65 03/23/2014 [facility] Systolic (mm Hg) 145 03/23/2014 [facility] BMI Calculated 34.4 03/23/2014 [facility] Height 162.56 cm 03/23/2014 [facility] Encounters Location Location Details Encounter Type Encounter Number Reason For Visit Attending Provider ADM Date DC Date Status Source [facility] Emergency Center [id number] An Oliveros 03/23/2014 03/23/2014 [facility] [place] [facility] Di[facility] Services [id number] Ranjan Gil 04/11/2017 04/12/2017 [facility] [id number] Ranjan Gil 04/29/2017 04/30/2017 [facility] Outpatient [id number] Rock Reese 06/12/2017 06/13/2017 [facility] Inpatient [id number] Ranjan Gil 08/15/2017 08/17/2017 [facility] Emergency [id number] Reece Puentes 09/02/2017 09/02/2017 [facility] Outpatient [id number] Jose Guadalupe Jenkins 09/10/2017 09/10/2017 [facility] Outpatient [id number] Jose Guadalupe Jenkins 11/18/2017 11/19/2017 [facility] [id number] [facility]2017 11/26/2017 [facility] Outpatient Imaging - [place] Out[facility] Diag Services [id number] Gary Mayers 02/04/2018 02/05/2018 FARHAD Arboleda [facility] Outpatient [id number] Ranjan Gil 10/02/2018 10/03/2018 [facility] Procedures Procedure Code Date Perfomer Comments Source AAA - Repair of abdominal aortic aneurys m using bifurcation graft [id number] [facility] [place] [id number] [facility] Miscellaneous operations<sup>1</sup> [id number] back surge ry FARHAD Arboleda,[facility] Cystoscopy [id number] [facility] Procedure on back<sup>2</sup> [id number] Surgery [facility] Assessment and Plan Assessment and Plan Date [...] doing well with no other complaints. 08/17/2017 [facility] Extracted from:Title: Clinical Document Author: Taniya Sharma [...] Palpable FA. Telemetry: Normal sinus rhythm 04/30/2017 [facility] Plan of Care No Data Provided for [...] Cessation Counseling No entered on: 11/19/17 11/19/2017 [facility] Social History TypeResponse Smoking Status Never smoker, Exposure to Tobacco Smoke None, Cigarette Smoking Last 365 Days No, Reg Smoking Cessation Counseling No 03/23/2014 [facility] Family History No Data Provided for This Section Advance Directives No Data Provided for This Section Functional Status No Data Provided for This Section
--- NOTE | 2019-12-04 09:58 | NUR ---
attempted to transport patient to cat-scan when he begin having a rhythm that displayed ventricular fibrillation. Patient brought back to the emergency room, will attempt to transport to cat scan again.
--- NOTE | 2019-12-04 10:02 | Emergency Department Note ---
History of Present Illnes History of Present Illness Chief Complaint: General Medicine Complaints History of Present Illness This is a 64 year old male c/o mid back pain. appears pale and uncomfortable. recent pacemaker placement by dr sandoval/cherri. Staff got pt out of car into stat to triage, vs taken, stat ekg, showed rate 177 afib/rvr. I was at [facility] on 2nd floor of hospital when pt presented so ER called [facility] to ER. Pt reports pain in upper back last night, worse this am when he woke and felt weak, denies CP. 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 Any updates have been documented here. Past Medical History Recent Fever: No Clinical Suspicion of Infectio: No New/Unexplained Change in Ment: No Past Medical History: Hypertension, CHF, CAD Other Medical History: previous smoker, gout, AAA, right CAD stent, BPH Past Surgical History: Pacer/AICD, Back Surgery Other Surgery: MULTI AAA REPAIR BACK SURGERY Social History Smoking Cessation: Former smoker Counseling Performed: No Alcohol Use: Social Any Illegal Drug Use: No TB Exposure/Symptoms: No Physically hurt or threatened: No Family History Family history of heart diseas: Yes Other Last Tetanus: UTD Any Pre-Existing Lines (PICC,: No Review of Systems Review of Systems Constitutional: weakness EENTM: no symptoms Cardiovascular: no symptoms Respiratory: no symptoms Gastrointestinal: no symptoms Genitourinary: no symptoms Musculoskeletal: as per HPI, back pain Neurological: weakness (generalized) Psychological: no symptoms Endocrine: no symptoms Hematological/Lymphatic: no symptoms Review of other systems All other systems reviewed and negative. Physical Exam Related Data Allergies: Coded Allergies: nifedipine (Verified Allergy, Unknown, 02/01/17) Triage Vital Signs Vital Signs Date Time Temp Pulse Resp B/P (MAP) Pulse Ox O2 Delivery O2 Flow Rate FiO2 12/04/19 08:06 97.3 170 16 117/60 99 Vital signs reviewed: Yes Physical Exam CONSTITUTIONAL Constitutional: diaphoretic, distressed, ill appearing HENT HENT: normocephalic, atraumatic, oropharynx clear/moist, nose normal HENT L/R: left ext ear normal, right ext ear normal EYES Eyes: PERRL, conjunctivae normal NECK Neck: ROM normal PULMONARY Pulmonary: effort normal, breath sounds normal CARDIOVASCULAR Cardiovascular: irregular rhythm, tachycardia (177) GASTROINTESTINAL Abdominal: soft, nontender, bowel sounds normal GENITOURINARY Genitourinary: exam deferred SKIN Skin: other (diaphoretic, mottled cool extremities and abdominal flank area bilaterally) MUSCULOSKELETAL Musculoskeletal: ROM normal NEUROLOGICAL Neurological: alert, oriented x 3, no gross motor or sensory deficits PSYCHOLOGICAL Psychological: mood/affect normal, judgement normal Results Laboratory Result Diagram: 12/04/19 0820 12/04/19 0820 Laboratory Laboratory Tests Test 12/04/19 08:20 White Blood Count 7.73 x10e3/uL (4.8-10.8) Red Blood Count 4.58 x10e6/uL (4.3-5.7) Hemoglobin 14.2 g/dL (14.0-18.0) Hematocrit 43.6 % (38.2-49.6) Mean Corpuscular Volume 95.2 fL (81-99) Mean Corpuscular Hemoglobin 31.0 pg (28-32) Mean Corpuscular Hemoglobin Concent 32.6 g/dL (31-35) Red Cell Distribution Width 14.1 % (11.7-14.4) Platelet Count 112 x10e3/uL (140-360) Neutrophils (%) (Auto) 56.2 % (38.7-80.0) Lymphocytes (%) (Auto) 31.6 % (18.0-39.1) Monocytes (%) (Auto) 8.0 % (4.4-11.3) Eosinophils (%) (Auto) 3.4 % (0.0-6.0) Basophils (%) (Auto) 0.5 % (0.0-1.0) Neutrophils # (Auto) 4.4 (2.1-6.9) Lymphocytes # (Auto) 2.4 (1.0-3.2) Monocytes # (Auto) 0.6 (0.2-0.8) Eosinophils # (Auto) 0.3 (0.0-0.4) Basophils # (Auto) 0.0 (0.0-0.1) Absolute Immature Granulocyte (auto 0.02 x10e3/uL (0-0.1) Prothrombin Time 12.9 seconds (11.9-14.5) Prothromb Time International Ratio 0.92 Activated Partial Thromboplast Time 28.6 seconds (23.8-35.5) Sodium Level 142 mmol/L (136-145) Potassium Level 3.4 mmol/L (3.5-5.1) Chloride Level 103 mmol/L (98-107) Carbon Dioxide Level 21 mmol/L (22-29) Anion Gap 21.4 mmol/L (8-16) Blood Urea Nitrogen 27 mg/dL (7-26) Creatinine 1.58 mg/dL (0.72-1.25) Estimat Glomerular Filtration Rate 44 ML/MIN (60-) BUN/Creatinine Ratio 17 (6-25) Glucose Level 110 mg/dL (74-118) Calcium Level 9.1 mg/dL (8.4-10.2) Magnesium Level 1.5 MG/DL (1.3-2.1) Total Bilirubin 0.7 mg/dL (0.2-1.2) Aspartate Amino Transf (AST/SGOT) 32 IU/L (5-34) Alanine Aminotransferase (ALT/SGPT) 35 IU/L (0-55) Alkaline Phosphatase 118 IU/L (40-150) Creatine Kinase 127 IU/L (30-200) Creatine Kinase MB 2.20 ng/mL (0-5.0) Troponin I 0.069 ng/mL (0-0.300) B-Type Natriuretic Peptide 108.0 pg/mL (0-100) Total Protein 7.8 g/dL (6.5-8.1) Albumin 3.4 g/dL (3.5-5.0) Globulin 4.4 g/dL (2.3-3.5) Albumin/Globulin Ratio 0.8 (0.8-2.0) Laboratory Tests Test 12/04/19 08:20 White Blood Count 7.73 x10e3/uL (4.8-10.8) Red Blood Count 4.58 x10e6/uL (4.3-5.7) Hemoglobin 14.2 g/dL (14.0-18.0) Hematocrit 43.6 % (38.2-49.6) Mean Corpuscular Volume 95.2 fL (81-99) Mean Corpuscular Hemoglobin 31.0 pg (28-32) Mean Corpuscular Hemoglobin Concent 32.6 g/dL (31-35) Red Cell Distribution Width 14.1 % (11.7-14.4) Platelet Count 112 x10e3/uL (140-360) Neutrophils (%) (Auto) 56.2 % (38.7-80.0) Lymphocytes (%) (Auto) 31.6 % (18.0-39.1) Monocytes (%) (Auto) 8.0 % (4.4-11.3) Eosinophils (%) (Auto) 3.4 % (0.0-6.0) Basophils (%) (Auto) 0.5 % (0.0-1.0) Neutrophils # (Auto) 4.4 (2.1-6.9) Lymphocytes # (Auto) 2.4 (1.0-3.2) Monocytes # (Auto) 0.6 (0.2-0.8) Eosinophils # (Auto) 0.3 (0.0-0.4) Basophils # (Auto) 0.0 (0.0-0.1) Absolute Immature Granulocyte (auto 0.02 x10e3/uL (0-0.1) Prothrombin Time 12.9 seconds (11.9-14.5) Prothromb Time International Ratio 0.92 Activated Partial Thromboplast Time 28.6 seconds (23.8-35.5) Sodium Level 142 mmol/L (136-145) Potassium Level 3.4 mmol/L (3.5-5.1) Chloride Level 103 mmol/L (98-107) Carbon Dioxide Level 21 mmol/L (22-29) Anion Gap 21.4 mmol/L (8-16) Blood Urea Nitrogen 27 mg/dL (7-26) Creatinine 1.58 mg/dL (0.72-1.25) Estimat Glomerular Filtration Rate 44 ML/MIN (60-) BUN/Creatinine Ratio 17 (6-25) Glucose Level 110 mg/dL (74-118) Calcium Level 9.1 mg/dL (8.4-10.2) Magnesium Level 1.5 MG/DL (1.3-2.1) Total Bilirubin 0.7 mg/dL (0.2-1.2) Aspartate Amino Transf (AST/SGOT) 32 IU/L (5-34) Alanine Aminotransferase (ALT/SGPT) 35 IU/L (0-55) Alkaline Phosphatase 118 IU/L (40-150) Creatine Kinase 127 IU/L (30-200) Total Protein 7.8 g/dL (6.5-8.1) Albumin 3.4 g/dL (3.5-5.0) Globulin 4.4 g/dL (2.3-3.5) Albumin/Globulin Ratio 0.8 (0.8-2.0) Lab results reviewed: Yes Imaging Imaging results reviewed: Yes Diagnostics Tests Diagnostic test(s) reviewed: Yes Procedures 12 Lead ECG Interpretation Agriculture Sales Account Manager: Interpreted by ED physician Date: December 04, 2019 Time: 08:09 Prior TEXTILE DESIGNS SALES REPRESENTATIVE tracings: reviewed Rhythm: atrial fibrillation (with RVR) Ectopy: PVC's Rate: tachycardia (154) QRS axis: left ST segment elevation: aVR ST segments depression: I, aVL T wave elevation: I, aVL Other findings: LVH Clinical Impression: dysrhythmia - nonspecific (afib w/ RVR, ST/TW changes - sent to Dr Gil) Critical Care Time Total Critical Care Time (min): 45 Critcal care necessary due to: cardiac failuer (afib w/ RVR then VT with hypotension) Subsequent provider I assumed direction of critical care for this patient from another provider of my specialty. Assessment & Plan Reassessment Reassessment Pt presented with upper back pain (? anginal equivalent) and new-onset afib with RVR, normotensive initially but appeared mottled and cool ext's/evidence of poor perfusion. I ordered 5 mg Metoprolol IV and IVF bolus, sent ECG to Dr Gil and Grant Molina. cbc, chem's, cardiac enzymes, bnp, pancx's, ua, cxr, and ct chest - r/o STEMI/NSTEMI, PE, aortic dissection (back pain), electrolyte abnl. Pt then went into wide-complex tachy/VT, remained alert - Amiodarone bolus and drip per standard protocol. Later, his BP dropped slightly which responded to IVF's. Patient now with HR 96 and is now paced continuously with good capture, pt feels much better and now has warm extremities and mottling has resolved Assessment & Plan Final Impression: (1) VENTRICULAR TACHYCARDIA (2) UNSPECIFIED ATRIAL FIBRILLATION (3) CHRONIC SYSTOLIC (CONGESTIVE) HEART FAILURE (4) Chest pain Assessment & Plan admit to ICU - spoke with Dr Rodriguez and Dr oMlina who is on his way to see pt Depart Disposition: ADMITTED Last Vital Signs Date Time Temp Pulse Resp B/P (MAP) Pulse Ox O2 Delivery O2 Flow Rate FiO2 12/04/19 09:04 100 20 98/47 100 12/04/19 08:06 97.3 Home Meds Reported Medications Furosemide (LASIX) 40 Mg Tablet, 40 MG PO DAILY, #30 TAB 11/25/19 Metoprolol Succinate (METOPROLOL SUCCINATE) 50 Mg Tab.er.24h, 50 MG PO DAILY, MG 11/25/19 Aspirin (ASPIR 81) 81 Mg Tablet.dr, 81 MG PO UD EVERY OTHER DAY 11/01/19 Allopurinol (ALLOPURINOL) 300 Mg Tablet, 300 MG PO DAILY, #30 TAB 11/01/19 Atorvastatin Calcium (LIPITOR) 20 Mg Tablet, 40 MG PO DAILY, TAB 11/01/19 Tamsulosin Hcl* (FLOMAX*) 0.4 Mg Cap, 0.4 MG PO DAILY, #30 CAP 11/01/19 Hydrochlorothiazide (HYDROCHLOROTHIAZIDE) 12.5 Mg Tablet, 12.5 MG PO DAILY 11/01/19 Medications in the ED Metoprolol Tartrate 5 mg STK-MED ONCE .ROUTE ; Start 12/04/19 at 08:27; Stop at 08:22; Status DC Ondansetron HCl 4 mg STK-MED ONCE .ROUTE ; Start 12/04/19 at 08:31; Stop 12/04/19 at 08:26; Status DC Ondansetron HCl 4 mg ONCE STAT IV Last administered on 12/04/19at 08:10; Admin Dose 4 MG; Start 12/04/19 at 08:34; Stop 12/04/19 at 08:43; Status DC Sodium Chloride 1,000 ml @ 0 mls/hr Q0M STAT IV Last administered on 12/04/19at 08:16; Admin Dose 1,000 MLS/HR; Start 12/04/19 at 08:34; Stop 12/04/19 at 08:37; Status DC Aspirin 81 mg PRN ONCE PO ; Start 12/04/19 at 08:45; Stop 12/04/19 at 08:46; Status DC Enoxaparin Sodium 80 mg Q12H SC ; Start 12/04/19 at 09:00; Stop 12/11/19 at 08:59; Status UNV Amiodarone HCl 100 ml @ 600 mls/hr ONCE IV ; Start 12/04/19 at 09:00; Stop 01/03/20 at 08:59; Status UNV Amiodarone HCl 200 ml @ 33 mls/hr Q6H IV ; Start 12/04/19 at 12:00; Stop 12/04/19 at 17:59; Status UNV Amiodarone HCl 200 ml @ 16.6 mls/hr Q18H IV ; Start 12/04/19 at 09:00; Stop 12/05/19 at 02:59; Status UNV Aspirin 81 mg QAM PO ; Start 12/04/19 at 09:00; Stop 01/03/20 at 08:59; Status UNV Nitroglycerin 0.4 mg Q5M PRN SL CHEST PAIN; Start 12/04/19 at 09:00; Status UNV Morphine Sulfate 2 mg Q3H PRN IV MODERATE PAIN (4-6); Start 12/04/19 at 09:00; Stop 12/11/19 at 08:59; Status UNV Famotidine 20 mg Q12H IV ; Start 12/04/19 at 09:00; Stop 01/03/20 at 08:59; Status UNV Ondansetron HCl 4 mg Q4H PRN IV NAUSEA AND VOMITING; Start 12/04/19 at 09:00; Stop 01/03/20 at 08:59; Status UNV FRANK DOMINGUEZ MD December 04, 2019 10:02
--- NOTE | 2019-12-04 10:12 | NUR ---
500 mL bolus of normal saline started to address patients decrease in blood pressure. Order given by Dr. Dudley.
[2019-12-04] MEDS ORDERED: SODIUM CHLORIDE 0.9% 500ML 500 ML IV ONE (10:30)
[2019-12-04] MEDS ORDERED: CEFEPIME 2 GM/NS 0.9% 100 ML 100 ML IV SCH ×2 (10:30→11:45)
[2019-12-04] MEDS ORDERED: GLUCAGON FOR INJ 1 MG VIAL IV ONE (10:30)
--- NOTE | 2019-12-04 11:00 | NUR ---
Patient transported to ICU.
[2019-12-04] MEDS ORDERED: AMIODARONE HCL 360MG 200 ML IV ONE (12:00)
[2019-12-04] MEDS ORDERED: ASPIRIN 81 MG CHEW TAB PO SCH (12:45)
[2019-12-04] MEDS ORDERED: SODIUM CHLORIDE 0.9% 250ML 250 ML IV ONE (13:15)
--- NOTE | 2019-12-04 13:45 | Consultation ---
DATE OF CONSULTATION: Pulmonary Critical Care Consultation CHIEF COMPLAINT: Dizziness and weakness. HISTORY OF PRESENT ILLNESS: The patient is a 64-year-old man. He has a history of coronary artery disease as well as a prior stent in the right coronary artery. He has a history of ischemic cardiomyopathy with a decreased ejection fraction of 20% to 30%. He states that he had a pacemaker placed about a week ago. He also had his blood pressure medicine changed by Cardiology several days ago. He now reports some dizziness and lightheadedness. He denies any chest pain. He is not having fever or cough. When the patient arrived in the emergency department, he was found to have atrial fibrillation with rapid ventricular response. He received some amiodarone and converted back into a normal sinus rhythm at a rate of 78. He also required a 250 mL IV fluid bolus. PAST SURGICAL HISTORY: Status post PTCA of the right coronary artery. PAST MEDICAL HISTORY: 1. Coronary artery disease. 2. Chronic systolic congestive heart failure. 3. Chronic renal failure, stage 3. 4. History of an aortic aneurysm that is status post repair. SOCIAL HISTORY: The patient is not an active smoker. He is not an active drinker. He did smoke in the past. FAMILY HISTORY: Family history is noncontributory. ALLERGIES: THE PATIENT IS ALLERGIC TO NIFEDIPINE. REVIEW OF SYSTEMS: The patient denies any headache. He has no fever. He is not having any neck pain. He has no chest pain. He is not having any cough. ABDOMEN: Soft, nontender. There is no rebound or guarding. EXTREMITIES: Shows no leg edema or calf tenderness. There is no cyanosis or clubbing. SKIN: Shows no rashes. He has no dyspnea. He has no abdominal pain. There is no nausea or vomiting. He has no leg swelling. He did complain of some dizziness. PHYSICAL EXAMINATION: VITAL SIGNS: The blood pressure is now 95/60 and the heart rate is 77. He is saturating 100% on 2 L. HEENT: Shows no facial swelling or erythema. CARDIAC: Reveals regular rate and rhythm with normal S1 and S2. LUNGS: Auscultation of lungs reveals clear breath sounds bilaterally. There is no wheezing. ABDOMEN: Soft and nontender. There is no rebound or guarding. EXTREMITIES: Shows no leg edema or calf tenderness. There is no cyanosis or clubbing. SKIN: Shows no rashes. NEUROLOGICAL: Shows no focal abnormalities. LABORATORY DATA: The BUN to creatinine ratio is 27 to 1.58 and the potassium is 3.4. The carbon dioxide is 21 and the chloride is 103. Albumin is 3.4. Hemoglobin is 14.2 and the white blood cell count is 7.7. The platelet count is 112. RADIOGRAPHIC DATA: Chest x-ray shows interstitial edema and a patchy left basilar opacity. IMPRESSION: 1. Omduj-on-qficgwn systolic congestive heart failure. 2. Atrial fibrillation with rapid ventricular response. 3. Chronic renal failure, stage 3. 4. Benign prostatic hypertrophy. PLAN: 1. The patient will begin low-dose of IV fluids. 2. The patient will receive amiodarone. 3. Continue Lovenox. 4. Continue Flomax. 5. Case discussed with nursing, Cardiology, and ER. Rickey Van MD [facility]/MODL /[id number]
--- NOTE | 2019-12-04 16:10 | Consultation ---
DATE OF CONSULTATION: Cardiology Consultation REASON FOR CONSULTATION: Arrhythmia. HISTORY OF PRESENT ILLNESS: This is a 64-year-old man with a history of nonobstructive coronary artery disease, chronic systolic congestive heart failure, status post biventricular ICD, hypertension, hyperlipidemia, who presented to the emergency department with multiple nonspecific symptoms. He said he felt upper back pain, weak, lethargic with palpitations. He was noted to have supraventricular tachycardia in the 170s. He was started on amiodarone with improvement. REVIEW OF SYSTEMS: A 12-point review of system was conducted, is negative except as stated above in the HPI. PAST MEDICAL HISTORY: As stated above in the HPI. PAST SURGICAL HISTORY: ICD implantation. FAMILY HISTORY: Noncontributory to the current illness. SOCIAL HISTORY: No illicit drug, alcohol, or tobacco use. MEDICATIONS: See medication reconciliation form. ALLERGIES: NIFEDIPINE. PHYSICAL EXAMINATION: VITAL SIGNS: Temperature is afebrile, heart rate is 76, respirations are 17, blood pressure is now 100/54, and oxygen saturation is 99% on 2 L nasal cannula. GENERAL: He is a well-appearing man, in no apparent distress. Alert and oriented x3. HEAD: Normocephalic and atraumatic. EYES: Extraocular muscles intact. Conjunctivae are clear. NECK: No JVD. No bruits. CARDIOVASCULAR: Regular rate and rhythm. LUNGS: Clear to auscultation. ABDOMEN: Soft, nontender, nondistended. EXTREMITIES: No clubbing, cyanosis, or edema. VASCULAR: 2+ pulses. SKIN: Warm, dry and intact. NEUROLOGIC: No focal deficits noted. Cranial nerves grossly intact. PSYCHIATRIC: Normal mood and affect. LABORATORY DATA: Reviewed. Creatinine 1.5, potassium 3.4. Chest x-ray shows mild pulmonary edema. IMPRESSION: 1. Atrial fibrillation with rapid ventricular response versus supraventricular tachycardia. 2. Chronic systolic congestive heart failure, status post ICD. 3. Back pain. 4. Hypertension. 5. Nonobstructive coronary artery disease. RECOMMENDATIONS: Continue amiodarone infusion. We will need to hold metoprolol given hypotension. Gentle fluid boluses as needed. We will have the ICD interrogated. Grupo Molina DO [facility]/MODL /[id number]
[2019-12-04] MEDS ORDERED: MINOCYCLINE HCL50 MG PO (16:42)
[2019-12-04] MEDS ORDERED: ULTRAM50 MG PO (16:42)
[2019-12-04 16:59] LABS: CREATINE KINASE MB 2.6 ng/mL (0-5.0)
--- NOTE | 2019-12-04 18:42 | NUR ---
Pt having low blood pressures in ICU, pt denies any symptoms, strong pules to extremities noted. Swelling noted to pacemaker site. Amiodarone drip infusing. One time dose of cefepime administered. Dr. Roberto Carlos van consulted by Dr. Dudley, possible need for central line insertion due to hypotension, consent obtained, Dr. Roberto Carlos van at bedside to evaluate. Dr. Molina and Dr. Roberto Carlos Van discussed plan of care. Per Dr. Molina give 250ml bolus, hold off central line for now. Dr. Molina called to report increased hypotension and troponin results, RN did not receive call back. Dr. Roberto Carlos Van informed of hypotension and troponin results, MD ordered midodrine one time dose.
[2019-12-04] MEDS ORDERED: MIDODRINE 2.5 MG TAB PO SCH (19:00)
[2019-12-04] MEDS ORDERED: TRAZODONE HCL 50 MG TAB PO PRN (21:15)
[2019-12-04 22:01] LABS: CREATINE KINASE MB 2.4 ng/mL (0-5.0)
[2019-12-05] VITALS (22 sets, daily range): BP systolic 84–117; BP diastolic 45–76
[2019-12-05 05:52] LABS: BASOPHILS # (AUTO) 0.1 (0.0-0.1); BASOPHILS % 0.9 % (0.0-1.0); EOSINOPHILS # (AUTO) 0.4 (0.0-0.4); EOSINOPHILS % 5.7 % (0.0-6.0); HEMATOCRIT 35.6 % (38.2-49.6); HEMOGLOBIN 11.1 g/dL (14.0-18.0); LYMPHOCYTES # (AUTO) 1.8 (1.0-3.2); LYMPHOCYTES % 26.5 % (18.0-39.1); MEAN CORPUSCULAR HEMOGLOBIN 30.7 pg (28-32); MEAN CORPUSCULAR HGB CONC 31.2 g/dL (31-35); MEAN CORPUSCULAR VOLUME 98.3 fL (81-99); MONOCYTES # (AUTO) 0.6 (0.2-0.8); MONOCYTES % 8.6 % (4.4-11.3); NEUTROPHILS % 57.9 % (38.7-80.0); PLATELET COUNT 99 x10e3/uL (140-360); RED BLOOD COUNT 3.62 x10e6/uL (4.3-5.7); RED CELL DISTRIBUTION WIDTH 14.5 % (11.7-14.4)
[2019-12-05 06:21] LABS: ALANINE AMINOTRANSFERASE 27 IU/L (0-55); ALBUMIN 2.7 g/dL (3.5-5.0); ALBUMIN/GLOBULIN RATIO 0.8 (0.8-2.0); ALKALINE PHOSPHATASE 91 IU/L (40-150); ANION GAP 12.8 mmol/L (8-16); BLOOD UREA NITROGEN 25 mg/dL (7-26); BUN/CREATININE RATIO 21 (6-25); CARBON DIOXIDE 24 mmol/L (22-29); CHLORIDE 107 mmol/L (98-107); CHOL/HDL RATIO 2.2 (3.9-4.7); CHOLESTEROL 89 MD/DL (0-199); CREATININE, SERUM 1.19 mg/dL (0.72-1.25); EST GLOMERULAR FILTRATION RATE > 60 ML/MIN (60-); GLUCOSE 81 mg/dL (74-118); HDL CHOLESTEROL 41 MG/DL (40-60); LDL CHOLESTEROL 33 MG/DL (60-130); POTASSIUM 3.8 mmol/L (3.5-5.1); SODIUM 140 mmol/L (136-145); TRIGLYCERIDES 75 MG/DL (0-149)
--- NOTE | 2019-12-05 07:46 | Diagnostic Imaging Report ---
EXAMINATION: CHEST SINGLE (PORTABLE) INDICATION: CHF. COMPARISON: Chest radiograph 12-04-2019. FINDINGS: TUBES and LINES: Left-sided AICD in unchanged position. LUNGS: Low lung volumes. Mild perihilar and interstitial opacities. Patchy opacities in the left lower lung. Mild elevation of the left hemidiaphragm. PLEURA: Trace left pleural effusion. No pneumothorax. HEART AND MEDIASTINUM: The cardiomediastinal silhouette is mildly enlarged. There are atherosclerotic calcifications within the aorta. BONES AND SOFT TISSUES: No acute osseous lesion. Soft tissues are unremarkable. UPPER ABDOMEN: No free air under the diaphragm. IMPRESSION: Mild pulmonary interstitial edema. Unchanged patchy left basilar opacity, more likely atelectasis than infection. Trace left pleural effusion. Signed by: Dr. Vijaya Wright MD on 12/05/2019 7:42 AM
[2019-12-05] MEDS: FAMOTIDINE 20 MG/2 ML VIAL IV SCH ×2 (09:25→21:24)
[2019-12-05] MEDS: TAMSULOSIN HCL 0.4 MG CAP PO SCH (09:25)
[2019-12-05] MEDS: ALLOPURINOL 300 MG TAB PO SCH (09:25)
[2019-12-05] MEDS: ASPIRIN 81 MG ENTERIC COATED PO SCH (09:25)
[2019-12-05] MEDS: ATORVASTATIN 20 MG TAB PO SCH (09:25)
[2019-12-05] MEDS: ENOXAPARIN SODIUM INJ 100 MG/ML SYR SC SCH (09:26)
--- NOTE | 2019-12-05 11:30 | NUR ---
Echo done. Dr. Molina and Dr. Roberto Carlos Van aware of low blood pressure readings while pt at rest. Per Dr. Molina pt can be moved to IMCU. Orders given to bridge amiodarone drip to PO. Orders given to start eliquis, d/c Lovenox.
[2019-12-05] MEDS: AMIODARONE HCL 200 MG TAB PO SCH ×2 (11:58→17:12)
--- NOTE | 2019-12-05 12:13 | Progress Note ---
DATE: Pulmonary Critical Care Progress Note SUBJECTIVE: The patient completed his amiodarone loading protocol. His blood pressure has been better. He does not complain of chest pain or difficulty breathing. OBJECTIVE: VITAL SIGNS: The blood pressure is 101/62 and saturation is 96%. The pulse is 79. HEENT: Shows no facial swelling or erythema. CARDIAC: Reveals regular rate and rhythm with normal S1 and S2. LUNGS: Auscultation of lungs reveals clear breath sounds bilaterally. There is no wheezing. ABDOMEN: Soft, nontender. There is no rebound or guarding. EXTREMITIES: Show no leg edema or calf tenderness. There is no cyanosis or clubbing. SKIN: Shows no rashes. NEUROLOGICAL: Shows no focal abnormalities. LABORATORY DATA: BUN to creatinine ratio is 25 to 1.19. The other electrolytes are within normal limits. Albumin is 2.7. White blood count 6.8 and hemoglobin is 11.1. The platelet count is 99. RADIOGRAPHIC DATA: Chest x-ray shows interstitial edema and some patchy left basilar opacity. ASSESSMENT: 1. Acute on chronic systolic congestive heart failure. 2. Atrial fibrillation with rapid ventricular response. 3. Chronic renal failure stage 3. 4. Benign prostatic hypertrophy. PLAN: 1. Switch amiodarone to p.o. 2. Transfer to [facility]. 3. Continue Flomax. 4. Continue Lovenox. MD TIERNEY Ardon/YOSELYNL /[id number]
--- NOTE | 2019-12-05 14:44 | Progress Note ---
DATE: Cardiology Progress Note SUBJECTIVE: The patient is feeling better, walking around room. No shortness of breath, chest pain or palpitations. OBJECTIVE: VITAL SIGNS: Temperature is 97.5, heart rate is 79, respirations are 18, blood pressure is 101/62, oxygen saturation 96% on room air. GENERAL: Well appearing in no apparent distress. CARDIOVASCULAR: Regular rate and rhythm. LUNGS: Clear to auscultation. ABDOMEN: Soft, nontender, nondistended. EXTREMITIES: Trace edema. CARDIOVASCULAR MEDICATIONS: Reviewed. LABORATORY DATA: Reviewed. TELEMETRY: Monitoring revealed biventricular paced rhythm. ICD interrogation showed episode of atrial fibrillation with rapid ventricular response for approximately 3 hours. ASSESSMENT: 1. Paroxysmal atrial fibrillation. 2. Chronic systolic congestive heart failure. 3. Presence of implantable cardioverter-defibrillator. 4. Back pain. 5. Hypertension. 6. Nonobstructive coronary artery disease. PLAN: The patient has converted back to regular rhythm with a biventricular paced complexes. Change amiodarone to 200 p.o. b.i.d. Metoprolol is being held due to hypotension. He actually had received 1 dose of midodrine yesterday. We will hold this and this can be initiated as an outpatient. We will monitor closely on telemetry overnight and patient may be discharged tomorrow with outpatient followup with Dr. Fuentes. DO LUISITO Olmedo/MODL /[id number]
[2019-12-05] MEDS: APIXABAN 5 MG TABLET PO SCH (17:12)
[2019-12-05 21:55] LABS: CLARITY,URINE SL CLOUDY (CLEAR); COLOR,URINE YELLOW (YELLOW); LEUKOCYTE ESTERASE ,URINE NEGATIVE (NEGATIVE); NITRITE,URINE NEGATIVE (NEGATIVE); PROTEIN,URINE DIPSTICK 1+ (NEGATIVE)
[2019-12-05 21:56] LABS: BILIRUBIN,URINE NEGATIVE (NEGATIVE); KETONES,URINE NEGATIVE (NEGATIVE); URINE UROBILINOGEN 0.2 mg/dL (0.2 - 1)
[2019-12-05 22:00] LABS: BACTERIA,URINE RARE /HPF; EPITHELIAL CELLS,URINE FEW /LPF; RBC,URINE 0-5 /HPF (0-5); WBC,URINE (MAN) 0-5 /HPF (0-5)
[2019-12-06 00:25] VITALS: BP 96/65
[2019-12-06 04:50] VITALS: BP 81/55
[2019-12-06 05:12] LABS: BASOPHILS % 0.5 % (0.0-1.0); EOSINOPHILS # (AUTO) 0.3 (0.0-0.4); EOSINOPHILS % 5.3 % (0.0-6.0); HEMATOCRIT 34.2 % (38.2-49.6); HEMOGLOBIN 10.9 g/dL (14.0-18.0); LYMPHOCYTES # (AUTO) 1.5 (1.0-3.2); LYMPHOCYTES % 23.1 % (18.0-39.1); MEAN CORPUSCULAR HEMOGLOBIN 31.3 pg (28-32); MEAN CORPUSCULAR HGB CONC 31.9 g/dL (31-35); MEAN CORPUSCULAR VOLUME 98.3 fL (81-99); MONOCYTES # (AUTO) 0.6 (0.2-0.8); MONOCYTES % 8.9 % (4.4-11.3); NEUTROPHILS # (AUTO) 3.9 (2.1-6.9); PLATELET COUNT 88 x10e3/uL (140-360); RED BLOOD COUNT 3.48 x10e6/uL (4.3-5.7); RED CELL DISTRIBUTION WIDTH 14.3 % (11.7-14.4)
[2019-12-06 05:30] LABS: ALANINE AMINOTRANSFERASE 23 IU/L (0-55); ALBUMIN 2.7 g/dL (3.5-5.0); ALBUMIN/GLOBULIN RATIO 0.8 (0.8-2.0); ALKALINE PHOSPHATASE 83 IU/L (40-150); ANION GAP 9.8 mmol/L (8-16); BLOOD UREA NITROGEN 20 mg/dL (7-26); BUN/CREATININE RATIO 21 (6-25); CALCIUM 7.8 mg/dL (8.4-10.2); CARBON DIOXIDE 25 mmol/L (22-29); CHLORIDE 108 mmol/L (98-107); CREATININE, SERUM 0.97 mg/dL (0.72-1.25); EST GLOMERULAR FILTRATION RATE > 60 ML/MIN (60-); GLUCOSE 83 mg/dL (74-118); POTASSIUM 3.8 mmol/L (3.5-5.1); SODIUM 139 mmol/L (136-145)
--- NOTE | 2019-12-06 06:55 | NUR ---
patient endorsed to next shift for continuity of care
[2019-12-06 08:00] VITALS: BP 121/64
[2019-12-06] MEDS: ATORVASTATIN 20 MG TAB PO SCH (08:13)
[2019-12-06] MEDS: FAMOTIDINE 20 MG/2 ML VIAL IV SCH (08:13)
[2019-12-06] MEDS: AMIODARONE HCL 200 MG TAB PO SCH ×2 (08:13→16:21)
[2019-12-06] MEDS: ALLOPURINOL 300 MG TAB PO SCH (08:14)
[2019-12-06 08:57] LABS: HEMATOCRIT 38.3 % (38.2-49.6); HEMOGLOBIN 12.2 g/dL (14.0-18.0)
[2019-12-06] MEDS: APIXABAN 5 MG TABLET PO SCH (09:00)
[2019-12-06 09:09] LABS: INR 0.94; PROTHROMBIN TIME 13.1 seconds (11.9-14.5)
[2019-12-06] MEDS: ASPIRIN 81 MG ENTERIC COATED PO SCH (09:55)
[2019-12-06] MEDS: TAMSULOSIN HCL 0.4 MG CAP PO SCH (09:55)
--- NOTE | 2019-12-06 10:17 | Progress Note ---
DATE: 12/06/2019 SUBJECTIVE: The patient denies chest pain or shortness of breath. He has been bleeding from his peripheral IV site after it was inadvertently dislodged. OBJECTIVE: VITAL SIGNS: Temperature 98.7 degrees, pulse 70, respiratory rate 19, blood pressure 81/55, and oxygen saturation 98% on room air. GENERAL: Awake, alert, in no acute distress, obese. LUNGS: Clear to auscultation bilaterally. No wheezes or crackles. CARDIOVASCULAR: Tachycardic, but regular. No murmur. Normal S1, S2. ABDOMEN: Soft, nontender. EXTREMITIES: No edema. CARDIAC MEDICATIONS: Amiodarone 200 mg p.o. b.i.d., atorvastatin 40 mg p.o. daily, apixaban 5 mg p.o. b.i.d., and aspirin 81 mg p.o. daily. LABORATORY DATA: WBC 6.28, hemoglobin 10.9, hematocrit 34.2, and platelets 88. Sodium 139, potassium 3.8, chloride 108, CO2 of 25, BUN 20, and creatinine 0.97. TELEMETRY: Telemetry was personally reviewed and interpreted, revealing sinus tachycardia. IMPRESSION: 1. Paroxysmal atrial fibrillation. 2. Chronic systolic heart failure, status post ICD. 3. Nonobstructive coronary artery disease. 4. Abdominal aortic aneurysm with endoleak. 5. Hypertension, currently hypotensive. 6. Back pain. RECOMMENDATIONS: Continue amiodarone for rhythm control. Metoprolol is held due to hypotension, hold all antihypertensive therapy, we will gradually resume as an outpatient as blood pressure tolerates. The patient should continue Eliquis for CVA prophylaxis as his CHADS-VASc score is 4 for heart failure, vascular disease, hypertension, and age. Check stool occult blood. CT of abdomen and pelvis is pending. Continue to monitor on telemetry. Continue current cardiac medications. Thank you for this consult. We will continue to follow. Taniya Sharma MD [facility]/MODL /[id number]
[2019-12-06] MEDS ORDERED: AMIODARONE HCL200 MG PO (10:56)
[2019-12-06] MEDS ORDERED: ELIQUIS5 MG PO (10:56)
[2019-12-06] MEDS ORDERED: IOPAMIDOL 370 MG/ML 200 ML INFUS..BTL INJ ONE (11:41)
[2019-12-06] MEDS ORDERED: SODIUM CHLORIDE 0.9% 100 ML ONE (11:41)
[2019-12-06 12:00] VITALS: BP 129/85
--- NOTE | 2019-12-06 12:20 | NUR ---
OK to go to CTA with radiology transport and telemetry.
--- NOTE | 2019-12-06 13:58 | Progress Note ---
DATE: SUBJECTIVE: The patient was transferred out of the intensive care unit yesterday. He had abdominal and pelvic CT performed this morning. His blood pressure is improved. PHYSICAL EXAMINATION: VITAL SIGNS: The blood pressure is 121/64, saturation is 95%, and the pulse is 80. HEENT: Shows no facial swelling or erythema. CARDIAC: Reveals regular rate and rhythm with normal S1 and S2. No murmurs or rubs. LUNGS: Auscultation of lungs reveals clear breath sounds bilaterally. There is no wheezing. ABDOMEN: Soft and nontender. There is no rebound or guarding. EXTREMITIES: Shows no leg edema or calf tenderness. There is no cyanosis or clubbing. LABORATORY DATA: BUN to creatinine ratio is 20 to 0.97. Electrolytes are within normal limits. Albumin is 2.7. Hemoglobin is 10.8 and the white blood cell count is 6.28. The platelet count is 88. IMPRESSION: 1. Vwryi-az-jexphty systolic congestive heart failure. 2. Atrial fibrillation with rapid ventricular response. 3. Acute kidney injury that is improving. 4. Benign prostatic hypertrophy. 5. Thrombocytopenia. PLAN: 1. Continue p.o. amiodarone. 2. Continue Eliquis. 3. Await results of CT scan. 4. Discussed disposition with Dr. Rodriguez and Cardiology. Rickey Van MD [facility]/MODL /[id number]
--- NOTE | 2019-12-06 14:01 | Diagnostic Imaging Report ---
CTA of the abdomen and pelvis. History: Abdominal aortic aneurysm. Comparison: CTA chest/abdomen/pelvis from 02/01/2017. Technique: Multidetector CT scanning of the abdomen and pelvis was performed from the level of the lung bases to the inferior pubic rami after intravenous administration of contrast in the arterial phase only. Coronal and sagittal multiplanar reformations as well as 3-D reformations of the abdominal aorta were obtained. RADIATION DOSE: Total DLP: 671.70 mGy*cm Dose modulation, iterative reconstruction, and/or weight based adjustment of the mA/kV was utilized to reduce the radiation dose to as low as reasonably achievable. FINDINGS: Vascular: The distal descending thoracic aorta measures 2.9 cm in maximal AP diameter with stable amount of intramural hematoma. There is slightly increased intramural hematoma present at the level of diaphragmatic hiatus resulting in irregular luminal contour. There is aneurysmal dilatation of the abdominal aorta distal to the diaphragmatic hiatus at the level of the celiac access measuring 4.9 x 3.8 cm in maximal dimensions, previously 4.8 x 3.8 cm. The celiac axis, SMA, and bilateral renal arteries remain patent. Again identified are postsurgical changes from endovascular infrarenal abdominal aortic aneurysm repair with graft placement. The graft remains patent. The aneurysm sac measures 4.9 x 6.1 cm in maximal dimensions, previously 4.6 x 5.4 cm when measuring in similar technique. Small amount of high density material is noted within the aneurysm sac (axial image 79). However, precontrast and delayed phase images are not obtained for evaluation for endoleak. The bilateral common iliac, external iliac, and internal iliac arteries are patent with atherosclerotic calcifications within its course and branch vessels. The bilateral common femoral and visualized portions the superficial femoral arteries are patent. Surgical clips noted within the left groin. NONVASCULAR: There is elevation of the left hemidiaphragm with associated compressive atelectasis of the left lower lobe. The right lung bases are grossly clear. Partially visualized pacing leads noted within the heart. The liver is normal in size and attenuation. The gallbladder is surgically absent. There is no biliary ductal dilatation. There is a small hiatal hernia present. The stomach, spleen, pancreas, and bilateral adrenal glands are unremarkable. The kidneys are normal in size and location and enhance symmetrically. There is no evidence for hydronephrosis. The ureters are normal in course and caliber. The partially distended urinary bladder demonstrates no significant abnormalities. The prostate is grossly unremarkable. The IVC is normal in caliber. Please note evaluation the bowel is limited without the use of enteric contrast material. The visualized loops of small and large bowel demonstrate no evidence of obstruction or inflammation. There is no ascites or intracranial free air. There are fat-containing ventral hernia is present, similar to the prior examination. Small amount of subcutaneous gas noted within the anterior abdominal wall which may reflect injection sites. There are multilevel degenerative changes of the lumbar spine. The osseous structures otherwise demonstrate no evidence for acute fracture or destructive process. The extraperitoneal soft tissues are unremarkable IMPRESSION: 1. Stable postsurgical changes from endovascular infrarenal abdominal aortic aneurysm repair. The infrarenal abdominal aortic aneurysm sac now measures 4.9 x 6.1 cm in maximal dimensions, slightly increased from the prior examination from 02/01/2017. Please note evaluation for endoleak cannot be performed as precontrast and delayed phase images were not obtained. Small amount of nonspecific high density material is noted within the aneurysm sac and an endoleak is possible. Consider comparison with noncontrast examination. 2. 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 There is slightly increased surrounding intramural hematoma resulting in luminal irregularity. 3. Small hiatal hernia. 4. Fat-containing ventral hernias 5. Additional stable findings as above. Signed by: Dr. Raffy Caputo MD on 12/06/2019 1:57 PM
[2019-12-06 16:00] VITALS: BP 110/68
--- NOTE | 2019-12-06 17:00 | NUR ---
IV saline lock to right IJ removed, pressure held, bandaged. Cannula intact. No bleeding or hematoma noted.
--- NOTE | 2019-12-06 17:00 | NUR ---
Site of old IV saline lock to right AC is without bleeding, hematoma, or complication noted.
--- NOTE | 2019-12-06 17:00 | NUR ---
Dr Sharma has agreed for pt to discharge home.
--- NOTE | 2019-12-06 17:00 | NUR ---
IV saline lock to left AC removed, cannula intact, pressure held, and bandaged. No bleeding or complication noted.
--- NOTE | 2019-12-07 05:12 | Discharge Summary ---
ADMISSION DIAGNOSES: 1. Atrial fibrillation with rapid ventricular rate. 2. Chronic systolic congestive heart failure. 3. Coronary artery disease with percutaneous coronary intervention. 4. Hypertension. 5. Benign prostatic hypertrophy. 6. Gout. DISCHARGE DIAGNOSES: 1. Atrial fibrillation with rapid ventricular rate. 2. Chronic systolic congestive heart failure. 3. Coronary artery disease with percutaneous coronary intervention. 4. Hypertension. 5. Benign prostatic hypertrophy. 6. Gout. HISTORY: Chronic systolic CHF, CAD with PCI, left bundle branch block, hypertension, gout, BPH, AAA. SURGICAL HISTORY: Abdominal aortic repair, pacemaker, back surgery. FAMILY HISTORY: The patient's mom, sister, and brother had diabetes. The patient's sister had a stroke. SOCIAL HISTORY: Noncontributory. HOSPITAL COURSE: A 64-year-old male admits with complaints of left-sided needle prick chest pain that began this morning. He had associated neck pain, nausea, and vomiting. He denies fever, cough, syncope, diaphoresis, and drainage from his pacer site. On admission, the patient was found to be in atrial fibrillation with RVR. He was started on amiodarone drip and Cardiology was consulted. Echo showed an EF of 50% to 55%. Chest x-ray showed mild pulmonary interstitial edema. Blood cultures negative. Urine culture negative. BNP was elevated on admission at 108. Only one troponin was slightly elevated. The patient will discharge home with new prescription for amiodarone and Eliquis. No beta-summer was given due to his hypotension. He will follow up with primary care in 1 to 2 weeks and Cardiology in 1 to 2 weeks. The patient understands discharge instructions and agrees to plan. He is admittedly not always compliant and may not take all of his medicines once he discharges home. The patient understands the risks of doing so and accepts responsibility. Dictated by Mirta Cardenas NP MD JAYSON Dejesus/SIGIFREDO /[id number]
== END 2019-12-06 17:20 | disposition home or self-care (01) | DRG 308 ==
LOC: ER 08:18 → ERHOLD 09:09 → ICU 11:15 → IMCU 12-05 12:26
PROVIDERS: ADMIT Internal Medicine; ATTEND Internal Medicine
DX: I48.0 Paroxysmal atrial fibrillation (principal); I50.23 Acute on chronic systolic (congestive) heart failure; I13.0 Hypertensive heart and chronic kidney disease with heart failure and stage 1 through stage 4 chronic kidney disease, or unspecified chronic kidney disease; N17.9 Acute kidney failure, unspecified; N18.3 Chronic kidney disease, stage 3 (moderate); D69.6 Thrombocytopenia, unspecified; N40.0 Benign prostatic hyperplasia without lower urinary tract symptoms; M10.9 Gout, unspecified; I25.10 Atherosclerotic heart disease of native coronary artery without angina pectoris; I71.4 Abdominal aortic aneurysm, without rupture; Z95.810 Presence of automatic (implantable) cardiac defibrillator; Z87.891 Personal history of nicotine dependence; Z82.49 Family history of ischemic heart disease and other diseases of the circulatory system; I47.2 Ventricular tachycardia; Z95.5 Presence of coronary angioplasty implant and graft; Z83.3 Family history of diabetes mellitus; Z82.3 Family history of stroke; Z88.8 Allergy status to other drugs, medicaments and biological substances
CPT/HCPCS: 36415; 71045; 74174; 80053; 80061; 81001; 82550; 82553; 83605; 83735; 83880; 84484; 85014; 85018; 85025; 85610; 85730; 87040; 87086; 87635; 92953; 93005; 93306; 99285; J1650; J2405; J7050; Q9967

== ENCOUNTER 2019-12-08 15:28 | Emergency (ER) | payer MEDICARE ==
[~2019-12-08] VITALS: Ht 162.6 cm; Wt 81.6 kg
[~2019-12-08 15:28] MED LIST changes: +AMIODARONE HCL200 MG PO; +ELIQUIS5 MG PO; +MINOCYCLINE HCL50 MG PO
--- OUTSIDE RECORDS SUMMARY | 2019-12-08 15:31 | XMS REPORT | Continuity of Care Document ---
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 Monocytes # 0.4 0.0 - 0.8 09/02/2017 [facility] HEMATOLOGY Basophils 0.9 0.0 - 1.0 09/02/2017 [facility] HEMATOLOGY Eosinophils 3.9 0.0 - 4.0 09/02/2017 [facility] HEMATOLOGY Eosinophils # 0.2 0.0 - 0.5 09/02/2017 [facility] Lymphocytes 25.0 20.0 - 40.0 09/02/2017 [facility] HEMATOLOGY Monocytes 7.5 2.0 - 12.0 09/02/2017 [facility] HEMATOLOGY Segs 62.7 45.0 - 75.0 09/02/2017 [facility] MCHC 32.9 32.0 - 36.0 09/02/2017 [facility] MCH 31.3 27.0 - 31.0 09/02/2017 [facility] MCV 94.9 80.0 - 94.0 09/02/2017 [facility] Hct 39.6 42.0 - 54.0 09/02/2017 [facility] RDW 14.7 11.5 - 14.5 09/02/2017 [facility] HEMATOLOGY MPV 7.1 7.4 - 10.4 09/02/2017 [facility] HEMATOLOGY Platelet 172 133 - 450 09/02/2017 [facility] HEMATOLOGY Hgb 13.0 14.0 - 18.0 09/02/2017 [facility] HEMATOLOGY RBC 4.17 4.70 - 6.10 09/02/2017 [facility] HEMATOLOGY WBC 5.4 3.7 - 10.4 09/02/2017 [facility] HEMATOLOGY INR 1.05 0.85 - 1.17 09/02/2017 [facility] HEMATOLOGY PT 13.7 12.0 - 14.7 09/02/2017 [facility] URINE AND STOOL UA Bacteria Occasional /HPF None Seen /HPF 09/02/2017 [facility] [address] URINE AND STOOL UA RBC >100 /HPF 0 - 2 09/02/2017 [facility] URINE AND STOOL UA WBC 3-5 /HPF 0 - 5 09/02/2017 [facility] URINE AND STOOL UA Sq Epi None Seen (09/02/17 6:06 AM) Few 09/02/2017 [facility] URINE AND STOOL Micro? Performed (09/02/17 6:06 AM) 09/02/2017 [facility] URINE AND STOOL UA Leuk Est Moderate *ABN* (09/02/17 6:06 AM) Negative 09/02/2017 [facility] URINE AND STOOL UA Ketones 15 09/02/2017 [facility] URINE AND STOOL UA pH 7.0 5.0 - 8.0 09/02/2017 [facility] URINE AND STOOL UA Bili Negative (09/02/17 6:06 AM) Negative 09/02/2017 [facility] URINE AND STOOL UA Blood Large *ABN* (09/02/17 6:06 AM) Negative 09/02/2017 [facility] URINE AND STOOL UA Turbidity Marked *ABN* (09/02/17 6:06 AM) Clear 09/02/2017 [facility] URINE AND STOOL UA Spec Grav 1.010 <=1.030 09/02/2017 [facility] URINE AND STOOL UA Glucose Negative (09/02/17 6:06 AM) Negative 09/02/2017 [facility] URINE AND STOOL UA Protein >=300 mg/dL Negative mg/dL 09/02/2017 [facility] [address] URINE AND STOOL UA Urobilinogen 4.0 0.1 - 1.0 09/02/2017 [facility] URINE AND STOOL UA Nitrite Positive *ABN* (09/02/17 6:06 AM) Negative 09/02/2017 [facility] URINE AND STOOL UA Color Red *ABN* (09/02/17 6:06 AM) Yellow 09/02/2017 [facility] CARDIAC ENZYMES Troponin-I <0.02 0.00 - 0.40 08/15/2017 [facility] CARDIAC ENZYMES CK MB Index 1.5 0.0 - 2.5 08/15/2017 [facility] CARDIAC ENZYMES CK MB 1.9 0.5 - 3.6 08/15/2017 [facility] CARDIAC ENZYMES Total CK 129 12 - 191 08/15/2017 [facility] CHEM PANEL eGFR 77 08/15/2017 Result [...] should be multiplied by the estimated BMI. [facility] CHEM PANEL Calcium Lvl 7.9 8.5 - 10.5 08/15/2017 [facility] CHEM PANEL CO2 28 24 - 32 08/15/2017 [facility] CHEM PANEL Albumin Lvl 3.2 3.5 - 5.0 08/15/2017 [facility] CHEM PANEL Total Protein 8.0 6.4 - 8.4 08/15/2017 [facility] CHEM PANEL Chloride Lvl 106 95 - 109 08/15/2017 [facility] CHEM PANEL Alk Phos 103 39 - 136 08/15/2017 [facility] CHEM PANEL AST 25 0 - 37 08/15/2017 [facility] CHEM PANEL ALT 21 0 - 65 08/15/2017 [facility] CHEM PANEL B/C Ratio 13 6 - 25 08/15/2017 [facility] CHEM PANEL AGAP 12.0 10.0 - 20.0 08/15/2017 [facility] CHEM PANEL Bili Total 0.5 0.2 - 1.3 08/15/2017 [facility] CHEM PANEL A/G Ratio 0.7 0.7 - 1.6 08/15/2017 [facility] CHEM PANEL Globulin 4.8 2.7 - 4.2 08/15/2017 [facility] CHEM PANEL Creatinine Lvl 1.03 0.50 - 1.40 08/15/2017 [facility] CHEM PANEL BUN 13 7 - 22 08/15/2017 [facility] CHEM PANEL Potassium Lvl 4.0 3.5 - 5.1 08/15/2017 [facility] CHEM PANEL Sodium Lvl 142 135 - 145 08/15/2017 [facility] CHEM PANEL Glucose Lvl 78 70 - 99 08/15/2017 [facility] HEMATOLOGY Basophils 0.6 0.0 - 1.0 08/15/2017 [facility] HEMATOLOGY Eosinophils 1.7 0.0 - 4.0 08/15/2017 [facility] HEMATOLOGY Segs-Bands # 4.4 1.5 - 8.1 08/15/2017 [facility] HEMATOLOGY Monocytes 10.2 2.0 - 12.0 08/15/2017 [facility] HEMATOLOGY Lymphocytes # 1.6 1.0 - 5.5 08/15/2017 [facility] HEMATOLOGY Eosinophils # 0.1 0.0 - 0.5 08/15/2017 [facility] HEMATOLOGY Monocytes # 0.7 0.0 - 0.8 08/15/2017 [facility] HEMATOLOGY Lymphocytes 23.6 20.0 - 40.0 08/15/2017 [facility] HEMATOLOGY Segs 63.9 45.0 - 75.0 08/15/2017 [facility] HEMATOLOGY MCH 31.6 27.0 - 31.0 08/15/2017 [facility] HEMATOLOGY MCV 95.7 80.0 - 94.0 08/15/2017 [facility] MCHC 33.0 32.0 - 36.0 08/15/2017 [facility] HEMATOLOGY MPV 7.2 7.4 - 10.4 08/15/2017 [facility] HEMATOLOGY RDW 15.9 11.5 - 14.5 08/15/2017 [facility] HEMATOLOGY Platelet 138 133 - 450 08/15/2017 [facility] HEMATOLOGY Hgb 13.3 14.0 - 18.0 08/15/2017 [facility] HEMATOLOGY Hct 40.2 42.0 - 54.0 08/15/2017 [facility] HEMATOLOGY RBC 4.20 4.70 - 6.10 08/15/2017 [facility] HEMATOLOGY WBC 6.8 3.7 - 10.4 08/15/2017 [facility] URINE AND STOOL UA Urobilinogen <=1.0 mg/dL 0.1 - 1.0 08/15/2017 [facility] URINE AND STOOL UA Color Ltyellow 08/15/2017 [facility] URINE AND STOOL UA Sq Epi None Seen 08/15/2017 [facility] URINE AND STOOL UA RBC 3 0 - 2 08/15/2017 [facility] URINE AND STOOL UA Protein Negative mg/dL Negative mg/dL 08/15/2017 [facility] URINE AND STOOL UA Glucose Negative mg/dL Negative mg/dL 08/15/[address] [facility] [address] URINE AND STOOL UA WBC 1 0 - 5 08/15/2017 [facility] URINE AND STOOL UA Ketones Negative mg/dL Negative mg/dL 08/15/2017 [facility] URINE AND STOOL UA Bili Negative *NA* (08/15/17 4:59 PM) Negative 08/15/2017 [facility] URINE AND STOOL UA Leuk Est Negative (08/15/17 4:59 PM) Negative 08/15/2017 [facility] URINE AND STOOL UA Nitrite Negative (08/15/17 4:59 PM) Negative 08/15/2017 [facility] URINE AND STOOL UA Blood Small *ABN* (08/15/17 4:59 PM) Negative 08/15/2017 [facility] URINE AND STOOL UA pH 6.0 5.0 - 8.0 08/15/2017 [facility] URINE AND STOOL UA Spec Grav 1.009 <=1.030 08/15/2017 [facility] URINE AND STOOL UA Turbidity Clear (08/15/17 4:59 PM) Clear 08/15/2017 [facility] CHEM PANEL eGFR 91 06/12/2017 Result [...] should be multiplied by the estimated BMI. [facility] CHEM PANEL POC Creatinine 0.9 0.5 - 1.4 06/12/2017 [facility] ELECTROLYTES AGAP 10.9 10.0 - 20.0 04/30/2017 [facility] ELECTROLYTES eGFR 97 04/30/2017 Result Comment: [...] should be multiplied by the estimated BMI. [facility] ELECTROLYTES Calcium Lvl 8.1 8.5 - 10.5 04/30/2017 [facility] ELECTROLYTES CO2 27 24 - 32 04/30/2017 [facility] ELECTROLYTES Potassium Lvl 3.9 3.5 - 5.1 04/30/2017 [facility] ELECTROLYTES Sodium Lvl 141 135 - 145 04/30/2017 [facility] ELECTROLYTES Chloride Lvl 107 95 - 109 04/30/2017 [facility] ELECTROLYTES BUN 15 7 - 22 04/30/2017 [facility] ELECTROLYTES Creatinine Lvl 0.7 6 0.50 - 1.40 04/30/2017 [facility] ELECTROLYTES Glucose Lvl 84 70 - 99 04/30/2017 [facility] HEMATOLOGY MCHC 33.2 32.0 - 36.0 04/30/2017 [facility] HEMATOLOGY MCH 30.2 27.0 - 31.0 04/30/2017 [facility] HEMATOLOGY MCV 90.9 80.0 - 94.0 04/30/2017 [facility] HEMATOLOGY Hct 34.4 42.0 - 54.0 04/30/2017 [facility] HEMATOLOGY MPV 7.0 7.4 - 10.4 04/30/2017 [facility] HEMATOLOGY Platelet 164 133 - 450 04/30/2017 [facility] HEMATOLOGY RDW 15.7 11.5 - 14.5 04/30/2017 [facility] HEMATOLOGY Hgb 11.4 14.0 - 18.0 04/30/2017 [facility] HEMATOLOGY RBC 3.78 4.70 - 6.10 04/30/2017 [facility] HEMATOLOGY WBC 5.6 3.7 - 10.4 04/30/2017 [facility] HEMATOLOGY Monocytes # 0.5 0.0 - 0.8 04/30/2017 [facility] HEMATOLOGY Eosinophils # 0.2 0.0 - 0.5 04/30/2017 [facility] HEMATOLOGY Lymphocytes # 1.5 1.0 - 5.5 04/30/2017 [facility] HEMATOLOGY Monocytes 8.9 2.0 - 12.0 04/30/2017 [facility] Lymphocytes 26.3 20.0 - 40.0 04/30/2017 [facility] HEMATOLOGY Segs 59.6 45.0 - 75.0 04/30/2017 [facility] HEMATOLOGY Segs-Bands # 3.3 1.5 - 8.1 04/30/2017 [facility] Basophils 0.8 0.0 - 1.0 04/30/2017 [facility] HEMATOLOGY Eosinophils 4.4 0.0 - 4.0 04/30/2017 [facility] CHEM PANEL Creatinine Lvl 0.95 0.50 - 1.40 04/29/2017 [facility] CHEM PANEL BUN 15 7 - 22 04/29/2017 [facility] CHEM PANEL Glucose Lvl 96 70 - 99 04/29/2017 [facility] CHEM PANEL Calcium Lvl 8.7 8.5 - 10.5 04/29/2017 [facility] CHEM PANEL CO2 30 24 - 32 04/29/2017 [facility] CHEM PANEL Chloride Lvl 101 95 [...] should be multiplied by the estimated BMI. [facility] CHEM PANEL AGAP 10.7 10.0 - 20.0 04/29/2017 [facility] HEMATOLOGY Lymphocytes 25.1 20.0 - 40.0 04/29/2017 [facility] HEMATOLOGY Segs 64.2 45.0 - 75.0 04/29/2017 [facility] HEMATOLOGY Monocytes 7.0 2.0 - 12.0 04/29/2017 [facility] HEMATOLOGY Basophils 0.9 0.0 - 1.0 04/29/2017 [facility] HEMATOLOGY Segs-Bands # 3.9 1.5 - 8.1 04/29/2017 [facility] HEMATOLOGY Eosinophils 2.8 0.0 - 4.0 04/29/2017 [facility] HEMATOLOGY Lymphocytes # 1.5 1.0 - 5.5 04/29/2017 [facility] HEMATOLOGY Eosinophils # 0.2 0.0 - 0.5 04/29/2017 [facility] HEMATOLOGY Basophils # 0.1 0.0 - 0.2 04/29/2017 [facility] HEMATOLOGY Monocytes # 0.4 0.0 - 0.8 04/29/2017 [facility] HEMATOLOGY Platelet 190 133 - 450 04/29/2017 [facility] HEMATOLOGY RDW 15.7 11.5 - 14.5 04/29/2017 [facility] MPV 6.9 7.4 - 10.4 04/29/2017 [facility] MCHC 32.7 32.0 - 36.0 04/29/2017 [facility] HEMATOLOGY RBC 4.34 4.70 - 6.10 04/29/2017 [facility] WBC 6.0 3.7 - 10.4 04/29/2017 [facility] HEMATOLOGY Hct 39.6 42.0 - 54.0 04/29/2017 [facility] HEMATOLOGY MCV 91.3 80.0 - 94.0 04/29/2017 [facility] HEMATOLOGY MCH 29.8 27.0 - 31.0 04/29/2017 [facility] HEMATOLOGY Hgb 13.0 14.0 - 18.0 04/29/2017 [facility] LIPIDS VLDL 29 04/29/2017 [facility] LDL (Calculated) 96 <=99 mg/dL 04/29/2017 [facility] LIPIDS Trig 143 <=149 mg/dL 04/29/2017 [facility] LIPIDS Chol 184 <=199 mg/dL 04/29/2017 [facility] HDL 59 >=61 mg/dL 04/29/2017 [facility] CHD Risk 3.12 4.00 - 7.30 04/29/2017 [facility] Pathology Reports No Data Provided for This Section Diagnostic Reports Report Value Date Source Abdomen/Pelvis CTA Patient Bereket abdul: TERESA WARD : 1955; Age: 63 years y/o Male MR: [id number] * CT ANGIOGRAPHY OF THE ABDOMEN \\T\\ [...] lumbar spine from L2 through S1. SL: [id number] 10/02/2018 [facility] Tibia fibula series DX Exam: [...] Impression: Right nephrolithiasis. Right ureteral stent. 11/18/2017 [facility] Abdomen AP DX Clinical Indicat ion: [...] portion of the stent. BONILLA: [id number] 09/02/2017 [facility] Renal pyelogram retrograde DX Patient Name: TERESA WARD : 1955; Age: 61 years y/o Male MR: [id number] RETROGRADE PYELOGRAPHY, RIGHT HISTORY: Calculus at right [...] bladder. Please refer to urologist's notes. BONILLA: [id number] 08/16/2017 [facility] Scrotal/Testicle w Doppler US Testicular ultrasound [...] right epididymal head cyst. SL: MORENO 08/16/2017 [facility] Abdomen/Pelvis CTA CTA ABDOMEN /PELVIS WITH [...] is interval increase in hydronephrosis. SL:16 08/16/2017 [facility] Chest 2 views DX Clinical Latoya [...] from the previous study. SL: MGLASER-M 08/15/2017 [facility] Chest/Abd/Pelvis CTA Patient N sharla: TERESA WARD : 1955; Age: 61 years y/o Male MR: [id number] Study: Chest/Abd/Pelvis CTA 06/12/2017 8:49 AM [employer] Ordering Physician: Rock Reese MD Clinical Indication: [...] thrombosed infrarenal abdominal aortic aneurysm sac. SL: [id number] 06/12/2017 [facility] Chest/Abdominal Aorta with Runoff CTA Patient Name: TERESA WARD : 1955; Age: 61 years y/o Male MR: [id number] Study: Chest/Abdominal Aorta with Runoff CTA 04/11/2017 [...] negative cervical spine series.. SL: 12 03/23/2014 [facility] Consultation Notes No Data Provided for This Section Discharge Summaries No Data Provided for This Section History and Physicals No Data Provided for This Section Vital Signs Vital Sign Value Date Comments Source Systolic (mm Hg) 173 11/26/2017 [facility] Diastolic (mm Hg) 65 11/26/2017 [facility] Systolic (mm Hg) 170 11/26/2017 [facility] Diastolic (mm Hg) 57 11/26/2017 [facility] Systolic (mm Hg) 169 11/26/2017 [facility] Diastolic (mm Hg) 57 11/26/2017 [facility] Respitory Rate 20 11/26/2017 [facility] Respitory Rate 18 11/26/2017 [facility] Heart Rate 56 11/26/2017 [facility] Respitory Rate 17 11/26/2017 [facility] Temperature Oral (F) 98.3 F 11/19/2017 [facility] Heart Rate 60 11/19/2017 [facility] Weight 86.08 11/19/2017 [facility] BMI Calculated 32.57 11/19/2017 [facility] Height 162.56 cm 11/19/2017 [facility] Heart Rate 71 09/10/2017 [facility] Respitory Rate 18 09/10/2017 [facility] Temperature Oral (F) 99.0 F 09/10/2017 [facility] Systolic (mm Hg) 165 09/10/2017 [facility] Diastolic (mm Hg) 61 09/10/2017 [facility] Height 162.56 cm 09/10/2017 [facility] Weight 84.091 09/10/2017 [facility] BMI Calculated 31.82 09/10/2017 [facility] Systolic (mm Hg) 104 09/02/2017 [facility] Diastolic (mm Hg) 82 09/02/2017 [facility] Respitory Rate 16 09/02/2017 [facility] Temperature Oral (F) 98.7 F 09/02/2017 [facility] Respitory Rate 16 09/02/2017 [facility] Temperature Oral (F) 98.7 F 09/02/2017 [facility] Systolic (mm Hg) 134 09/02/2017 [facility] Diastolic (mm Hg) 66 09/02/2017 [facility] Weight 81.818 09/02/2017 [facility] BMI Calculated 34.08 09/02/2017 [facility] Systolic (mm Hg) 125 09/02/2017 [facility] Diastolic (mm Hg) 81 09/02/2017 [facility] Height 154.94 cm 09/02/2017 [facility] Respitory Rate 18 09/02/2017 [facility] Heart Rate 85 09/02/2017 [facility] Temperature Oral (F) 98.3 F 09/02/2017 [facility] Systolic (mm Hg) 127 08/16/2017 [facility] Diastolic (mm Hg) 69 08/16/2017 [facility] Respitory Rate 16 08/16/2017 [facility] Heart Rate 64 08/16/2017 [facility] Temperature Oral (F) 97.5 F 08/16/2017 [facility] Heart Rate 73 08/16/2017 [facility] Systolic (mm Hg) 146 08/16/2017 [facility] Diastolic (mm Hg) 74 08/16/2017 [facility] Respitory Rate 16 08/16/2017 [facility] Systolic (mm Hg) 146 08/16/2017 [facility] Diastolic (mm Hg) 74 08/16/2017 [facility] Respitory Rate 16 08/16/2017 [facility] Heart Rate 73 08/16/2017 [facility] Temperature Oral (F) 97.5 F 08/16/2017 [facility] Temperature Oral (F) 98.2 F 08/16/2017 [facility] Height 160.02 cm 08/15/2017 [facility] Weight 81.818 08/15/2017 [facility] BMI Calculated 31.95 08/15/2017 [facility] Systolic (mm Hg) 124 04/30/2017 [facility] Diastolic (mm Hg) 67 04/30/2017 [facility] Respitory Rate 16 04/30/2017 [facility] Heart Rate 60 04/30/2017 [facility] Temperature Oral (F) 98.1 F 04/30/2017 [facility] Heart Rate 61 04/30/2017 [facility] Temperature Oral (F) 98.2 F 04/30/2017 [facility] Respitory Rate 16 04/30/2017 [facility] Systolic (mm Hg) 93 04/30/2017 [facility] Diastolic (mm Hg) 51 04/30/2017 [facility] Systolic (mm Hg) 98 04/30/2017 [facility] Diastolic (mm Hg) 49 04/30/2017 [facility] Respitory Rate 16 04/30/2017 [facility] Heart Rate 56 04/30/2017 [facility] Temperature Oral (F) 98.1 F 04/30/2017 [facility] BMI Calculated 32.68 04/29/2017 [facility] Weight 86.364 04/29/2017 [facility] Height 162.56 cm 04/29/2017 [facility] Diastolic (mm Hg) 68 03/23/2014 [facility] Respitory Rate 16 03/23/2014 [facility] Systolic (mm Hg) 163 03/23/2014 [facility] Temperature Oral (F) 97.8 F 03/23/2014 [facility] Heart Rate 60 03/23/2014 [facility] Weight 90.909 03/23/2014 [facility] Respitory Rate 16 03/23/2014 [facility] Temperature Oral (F) 98.1 F 03/23/2014 [facility] Diastolic (mm Hg) 77 03/23/2014 [facility] Heart Rate 65 03/23/2014 [facility] Systolic (mm Hg) 145 03/23/2014 [facility] BMI Calculated 34.4 03/23/2014 [facility] Height 162.56 cm 03/23/2014 [facility] Encounters Location Location Details Encounter Type Encounter Number Reason For Visit Attending Provider ADM Date DC Date Status Source [facility] [id number] An Oliveros 03/23/2014 03/23/2014 [facility] [place] [facility] [id number] Ranjan Gil 04/11[facility]2017 [facility] [id number] Ranjan Gil 04/29/2017 04/30/2017 [facility] Outpatient [id number] Rock Reese 06/12/2017 06/13/2017 [facility] Inpatient [id number] Ranjan Gil 08/15/2017 08/17/2017 [facility] Emergency [id number] Reece Puentes 09/02/2017 09/02/2017 [facility] Outpatient [id number] Jose Guadalupe Jenkins 09/10/2017 09/10/2017 [facility] Outpatient [id number] Jose Guadalupe Jenkins 11/18/2017 11/19/2017 [id number] [facility]2017 11/26[facility]2017 [facility] [place] [facility] Di[facility] [id number] Gary Mayers 02/04/2018 02/05/2018 FARHAD Arboleda [facility] Outpatient [id number] Ranjan Gil 10/02/2018 10/03/2018 [facility] Procedures Procedure Code Date Perfomer Comments Source AAA - Repair of abdominal aortic aneurys m using bifurcation graft [id number] [facility] [id number] [facility] Miscellaneous operations<sup>1</sup> [id number] back surge ry FARHAD Arboleda,[facility] Cyst[facility] [id number] [facility] Procedure on back<sup>2</sup> [id number] Surgery [facility] Assessment and Plan Assessment and Plan [...] doing well with no other complaints. 08/17/2017 [facility] Extracted from:Title: Clinical Document Author: Taniya [...] Palpable FA. Telemetry: Normal sinus rhythm 04/30/2017 [facility] Plan of Care No Data Provided [...] Cessation Counseling No entered on: 11/19/17 11/19/2017 [facility] Social History TypeResponse Smoking Status Never smoker, Exposure to Tobacco Smoke None, Cigarette Smoking Last 365 Days No, Reg Smoking Cessation Counseling No 03/23/2014 [facility] Family History No Data Provided for This Section Advance Directives No Data Provided for This Section Functional Status No Data Provided for This Section
--- NOTE | 2019-12-08 18:28 | Emergency Department Note ---
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 BLEEDING NOW CONTROLLED. CLIENT SITE CLEANED AND BANDAGED. NO OTHER COMPLAINTS. Historian: Patient Arrival Mode: Car School Secretary Required: No Onset (how long ago): hour(s) Location: RIGHT AC Quality: BLEEDING EARLIER Radiation: non-radiation Severity: mild Onset quality: gradual Duration (how long): hour(s) Timing of current episode: intermittent Progression: unchanged Chronicity: new Context: recent illness (RECENT ADMIT FOR HYPOTENSION AND WIDE-COMPLEX TACHY) Relieving factors: none Exacerbating factors: none Associated symptoms: denies other symptoms Treatments prior to arrival: none Past Medical/Family History Physician Review I have reviewed the patient's past medical and family history. Any updates have been documented here. Past Medical History Recent Fever: No Clinical Suspicion of Infectio: No New/Unexplained Change in Ment: No Past Medical History: Hypertension, CHF, CAD Other Medical History: previous smoker, gout, AAA, right CAD stent, BPH,pacemaker Past Surgical History: Pacer/AICD, Back Surgery Other Surgery: MULTI AAA REPAIR BACK SURGERY Social History Smoking Cessation: Former smoker Counseling Performed: No Alcohol Use: None Any Illegal Drug Use: No TB Exposure/Symptoms: No Physically hurt or threatened: No Family History Family history of heart diseas: Yes Other Last Tetanus: UTD Any Pre-Existing Lines (PICC,: No Review of Systems Review of Systems Constitutional: no symptoms EENTM: no symptoms Cardiovascular: no symptoms Respiratory: no symptoms Gastrointestinal: no symptoms Genitourinary: no symptoms Musculoskeletal: no symptoms Neurological: no symptoms Psychological: no symptoms Endocrine: no symptoms Hematological/Lymphatic: no symptoms Review of other systems All other systems reviewed and negative. Physical Exam Related Data Allergies: Coded Allergies: nifedipine (Verified Allergy, Unknown, 02/01/17) Triage Vital Signs Vital Signs Date Time Temp Pulse Resp B/P (MAP) Pulse Ox O2 Delivery O2 Flow Rate FiO2 12/08/19 16:11 98.2 78 16 141/82 98 Physical Exam CONSTITUTIONAL Constitutional: well-developed, well-nourished HENT HENT: normocephalic, atraumatic, oropharynx clear/moist, nose normal HENT L/R: left ext ear normal, right ext ear normal EYES Eyes: PERRL, conjunctivae normal NECK Neck: ROM normal PULMONARY Pulmonary: effort normal, breath sounds normal CARDIOVASCULAR Cardiovascular: regular rhythm, heart sounds normal, capillary refill normal, normal rate GASTROINTESTINAL Abdominal: soft, nontender, bowel sounds normal GENITOURINARY Genitourinary: exam deferred SKIN Skin: other (RIGHT AC SITE CURRENTLY NOT BLEEDING, BRICK CARRIER PUT PRESSURE DRESSING AND COBAN ON SITE) MUSCULOSKELETAL Musculoskeletal: ROM normal NEUROLOGICAL Neurological: alert, oriented x 3, no gross motor or sensory deficits PSYCHOLOGICAL Psychological: mood/affect normal, judgement normal Critical Care Time Subsequent provider I assumed direction of critical care for this patient from another provider of my specialty. Assessment & Plan Assessment & Plan Final Impression: (1) COAGULATION DEFECT, UNSPECIFIED Assessment & Plan DC HOME, DX- IV SITE BLEEDING, CONTROLLED Depart Disposition: HOME, SELF-CARE Last Vital Signs Date Time Temp Pulse Resp B/P (MAP) Pulse Ox O2 Delivery O2 Flow Rate FiO2 12/08/19 16:11 98.2 78 16 141/82 98 Home Meds Active Scripts Apixaban (Eliquis) 5 Mg Tablet, 5 MG PO BID for 30 Days RESUME 12/07/19 Prov:JAISON KRAFT CHAINMAN 12/06/19 Amiodarone Hcl (AMIODARONE HCL) 200 Mg Tablet, 200 MG PO BID for 30 Days Prov:JAISON KRAFT CHAINMAN 12/06/19 Reported Medications Tramadol Hcl (ULTRAM) 50 Mg Tablet, 50 MG PO Q8H for PAIN, TAB 12/04/19 Minocycline Hcl (MINOCYCLINE HCL) 50 Mg Capsule, 100 MG PO Q12H, #60 TAB 12/04/19 Aspirin (ASPIR 81) 81 Mg Tablet.dr, 81 MG PO UD EVERY OTHER DAY 11/01/19 Allopurinol (ALLOPURINOL) 300 Mg Tablet, 300 MG PO DAILY, #30 TAB 11/01/19 Atorvastatin Calcium (LIPITOR) 20 Mg Tablet, 40 MG PO DAILY, TAB 11/01/19 Tamsulosin Hcl* (FLOMAX*) 0.4 Mg Cap, 0.4 MG PO DAILY, #30 CAP 11/01/19 Discontinued Reported Medications Furosemide (LASIX) 40 Mg Tablet, 40 MG PO DAILY, #30 TAB 11/25/19 Metoprolol Succinate (METOPROLOL SUCCINATE) 50 Mg Tab.er.24h, 50 MG PO DAILY, MG 11/25/19 Hydrochlorothiazide (HYDROCHLOROTHIAZIDE) 12.5 Mg Tablet, 12.5 MG PO DAILY 11/01/19 FRANK DOMINGUEZ MD Dec 08, 2019 18:28
== END 2019-12-08 18:26 | disposition home or self-care (01) ==
LOC: ER 15:28
DX: D68.9 Coagulation defect, unspecified (principal); I10 Essential (primary) hypertension; I25.10 Atherosclerotic heart disease of native coronary artery without angina pectoris; Z95.810 Presence of automatic (implantable) cardiac defibrillator
CPT/HCPCS: 99282

== ENCOUNTER 2019-12-15 13:05 | Inpatient (IN) | payer MEDICARE, OTHER ==
[~2019-12-15] VITALS: Ht 162.6 cm; Wt 84.5 kg
--- OUTSIDE RECORDS SUMMARY | 2019-12-15 13:07 | XMS REPORT | Clinical Summary ---
Author Author MARY [facility] Address Unknown Phone Unavailable Care Team Providers Care Glost Tile Sorter Name Role Phone Sharpless PCP Allergies Comments [...] Not on file Results Not on fileafter 12/14/2018 Insurance Payer Benefit Subscriber ID Type Phone Address Plan / Group WELLCARE MEDICARE MGD WELLCARE xxxxxxxx CARE MAPS Advance Directives For more information, please contact: [address] [address] Date Inactivated Comments Code Status Date Activated 02/23/2017 3:59 PM Full Code 02/21/2017 5:39 AM This code status was determined by: Patient 02/05/2017 2:49 PM Full Code 02/01/2017 10:20 PM This code status was determined by: Patient
--- OUTSIDE RECORDS SUMMARY | 2019-12-15 13:07 | XMS REPORT | Clinical Summary ---
Author Author [facility] ict Organization [facility] ict Address Unknown Phone Unavailable Care Team Providers Care Charge Coordinator Name Role Phone Sri Patton RN 2 [...] Added automatically from request for antonieta stinson [id number] Left eye pain Encounters Care Team Description [...] History of trabeculectomy 12/17/2018 Office Visit Ophthalmology after 12/14/2018 Social History Date Tobacco Use Types Packs/Day [...] Signs Not on file Plan of Treatment Health Maintenance Due Date Last Done Comments Colorectal Cancer Scrn 09/16/2003 Annual (FIT/FOBT) Age 50 to 75 IMM Pneumococcal Age 65 2018 and Up IMM Influenza Seasonal 04/06/2020 Oct to September (>/= 19 yrs) Results Not on fileafter 12/14/2018 Insurance Type Payer Benefit Subscriber ID Effective Phone Address Plan / Dates Group [employer] xxxxxxxx 2018-P [address] [facility] [address] [place] [address] LIENS PENDING xxxxxxxxx 2009- [phone] [place] [address] Pascual Albert Third Self [address] ([address]) [place] [address] Liability
--- OUTSIDE RECORDS SUMMARY | 2019-12-15 13:08 | XMS REPORT | Continuity of Care Document ---
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 HEMATOLOGY Eosinophils 3.9 0.0 - 4.0 09/02/2017 [facility] HEMATOLOGY Eosinophils # 0.2 0.0 - 0.5 09/02/2017 [facility] Lymphocytes 25.0 20.0 - 40.0 09/02/2017 [facility] HEMATOLOGY Monocytes 7.5 2.0 - 12.0 09/02/2017 [facility] HEMATOLOGY Segs 62.7 45.0 - 75.0 09/02/2017 [facility] MCHC 32.9 32.0 - 36.0 09/02/2017 [facility] MCH 31.3 27.0 - 31.0 09/02/2017 [facility] MCV 94.9 80.0 - 94.0 09/02/2017 [facility] Hct 39.6 42.0 - 54.0 09/02/2017 [facility] RDW 14.7 11.5 - 14.5 09/02/2017 [facility] HEMATOLOGY MPV 7.1 7.4 - 10.4 09/02/2017 [facility] HEMATOLOGY Platelet 172 133 - 450 09/02/2017 [facility] HEMATOLOGY Hgb 13.0 14.0 - 18.0 09/02/2017 [facility] HEMATOLOGY RBC 4.17 4.70 - 6.10 09/02/2017 [facility] HEMATOLOGY WBC 5.4 3.7 - 10.4 09/02/2017 [facility] HEMATOLOGY INR 1.05 0.85 - 1.17 09/02/2017 [facility] HEMATOLOGY PT 13.7 12.0 - 14.7 09/02/2017 [facility] URINE AND STOOL UA Bacteria Occasional /HPF None Seen /HPF 09/02/[address] [facility] [address] URINE AND STOOL UA RBC >100 /HPF 0 - 2 09/02/2017 [facility] URINE AND STOOL UA WBC 3-5 /HPF 0 - 5 09/02/2017 [facility] URINE AND STOOL UA Sq Epi None Seen (09/02/17 6:06 AM) Few 09/02/2017 [facility] URINE AND STOOL Micro? Performed (09/02/17 6:06 AM) 09/02/2017 [facility] URINE AND STOOL UA Leuk Est Moderate *ABN* (09/02/17 6:06 AM) Negative 09/02/2017 [facility] URINE AND STOOL UA Ketones 15 09/02/2017 [facility] URINE AND STOOL UA pH 7.0 5.0 - 8.0 09/02/2017 [facility] URINE AND STOOL UA Bili Negative (09/02/17 6:06 AM) Negative 09/02/2017 [facility] URINE AND STOOL UA Blood Large *ABN* (09/02/17 6:06 AM) Negative 09/02/2017 [facility] URINE AND STOOL UA Turbidity Marked *ABN* (09/02/17 6:06 AM) Clear 09/02/2017 [facility] URINE AND STOOL UA Spec Grav 1.010 <=1.030 09/02/2017 [facility] URINE AND STOOL UA Glucose Negative (09/02/17 6:06 AM) Negative 09/02/2017 [facility] URINE AND STOOL UA Protein >=300 mg/dL Negative mg/dL 09/02/[address] [facility] [address] URINE AND STOOL UA Urobilinogen 4.0 0.1 - 1.0 09/02/2017 [facility] URINE AND STOOL UA Nitrite Positive *ABN* (09/02/17 6:06 AM) Negative 09/02/2017 [facility] URINE AND STOOL UA Color Red *ABN* (09/02/17 6:06 AM) Yellow 09/02/2017 [facility] CARDIAC ENZYMES Troponin-I <0.02 0.00 - 0.40 08/15/2017 [facility] CARDIAC ENZYMES CK MB Index 1.5 0.0 - 2.5 08/15/2017 [facility] CARDIAC ENZYMES CK MB 1.9 0.5 - 3.6 08/15/2017 [facility] CARDIAC ENZYMES Total CK 129 12 - 191 08/15/2017 [facility] CHEM PANEL eGFR 77 08/15/2017 Result [...] should be multiplied by the estimated BMI. [facility] CHEM PANEL Calcium Lvl 7.9 8.5 - 10.5 08/15/2017 [facility] CHEM PANEL CO2 28 24 - 32 08/15/2017 [facility] CHEM PANEL Albumin Lvl 3.2 3.5 - 5.0 08/15/2017 [facility] CHEM PANEL Total Protein 8.0 6.4 - 8.4 08/15/2017 [facility] CHEM PANEL Chloride Lvl 106 95 - 109 08/15/2017 [facility] CHEM PANEL Alk Phos 103 39 - 136 08/15/2017 [facility] CHEM PANEL AST 25 0 - 37 08/15/2017 [facility] CHEM PANEL ALT 21 0 - 65 08/15/2017 [facility] CHEM PANEL B/C Ratio 13 6 - 25 08/15/2017 [facility] CHEM PANEL AGAP 12.0 10.0 - 20.0 08/15/2017 [facility] CHEM PANEL Bili Total 0.5 0.2 - 1.3 08/15/2017 [facility] CHEM PANEL A/G Ratio 0.7 0.7 - 1.6 08/15/2017 [facility] CHEM PANEL Globulin 4.8 2.7 - 4.2 08/15/2017 [facility] CHEM PANEL Creatinine Lvl 1.03 0.50 - 1.40 08/15/2017 [facility] CHEM PANEL BUN 13 7 - 22 08/15/2017 [facility] CHEM PANEL Potassium Lvl 4.0 3.5 - 5.1 08/15/2017 [facility] CHEM PANEL Sodium Lvl 142 135 - 145 08/15/2017 [facility] CHEM PANEL Glucose Lvl 78 70 - 99 08/15/2017 [facility] HEMATOLOGY Basophils 0.6 0.0 - 1.0 08/15/2017 [facility] HEMATOLOGY Eosinophils 1.7 0.0 - 4.0 08/15/2017 [facility] HEMATOLOGY Segs-Bands # 4.4 1.5 - 8.1 08/15/2017 [facility] HEMATOLOGY Monocytes 10.2 2.0 - 12.0 08/15/2017 [facility] HEMATOLOGY Lymphocytes # 1.6 1.0 - 5.5 08/15/2017 [facility] HEMATOLOGY Eosinophils # 0.1 0.0 - 0.5 08/15/2017 [facility] HEMATOLOGY Monocytes # 0.7 0.0 - 0.8 08/15/2017 [facility] HEMATOLOGY Lymphocytes 23.6 20.0 - 40.0 08/15/2017 [facility] HEMATOLOGY Segs 63.9 45.0 - 75.0 08/15/2017 [facility] HEMATOLOGY MCH 31.6 27.0 - 31.0 08/15/2017 [facility] HEMATOLOGY MCV 95.7 80.0 - 94.0 08/15/2017 [facility] MCHC 33.0 32.0 - 36.0 08/15/2017 [facility] HEMATOLOGY MPV 7.2 7.4 - 10.4 08/15/2017 [facility] HEMATOLOGY RDW 15.9 11.5 - 14.5 08/15/2017 [facility] HEMATOLOGY Platelet 138 133 - 450 08/15/2017 [facility] HEMATOLOGY Hgb 13.3 14.0 - 18.0 08/15/2017 [facility] HEMATOLOGY Hct 40.2 42.0 - 54.0 08/15/2017 [facility] HEMATOLOGY RBC 4.20 4.70 - 6.10 08/15/2017 [facility] HEMATOLOGY WBC 6.8 3.7 - 10.4 08/15/2017 [facility] URINE AND STOOL UA Urobilinogen <=1.0 mg/dL 0.1 - 1.0 08/15/2017 [facility] URINE AND STOOL UA Color Ltyellow 08/15/2017 [facility] URINE AND STOOL UA Sq Epi None Seen 08/15/2017 [facility] URINE AND STOOL UA RBC 3 0 - 2 08/15/2017 [facility] URINE AND STOOL UA Protein Negative mg/dL Negative mg/dL 08/15/2017 [facility] URINE AND STOOL UA Glucose Negative mg/dL Negative mg/dL 08/15/[address] [facility] [address] URINE AND STOOL UA WBC 1 0 - 5 08/15/2017 [facility] URINE AND STOOL UA Ketones Negative mg/dL Negative mg/dL 08/15/2017 [facility] URINE AND STOOL UA Bili Negative *NA* (08/15/17 4:59 PM) Negative 08/15/2017 [facility] URINE AND STOOL UA Leuk Est Negative (08/15/17 4:59 PM) Negative 08/15/2017 [facility] URINE AND STOOL UA Nitrite Negative (08/15/17 4:59 PM) Negative 08/15/2017 [facility] URINE AND STOOL UA Blood Small *ABN* (08/15/17 4:59 PM) Negative 08/15/2017 [facility] URINE AND STOOL UA pH 6.0 5.0 - 8.0 08/15/2017 [facility] URINE AND STOOL UA Spec Grav 1.009 <=1.030 08/15/2017 [facility] URINE AND STOOL UA Turbidity Clear (08/15/17 4:59 PM) Clear 08/15/2017 [facility] CHEM PANEL eGFR 91 06/12/2017 Result [...] should be multiplied by the estimated BMI. [facility] CHEM PANEL POC Creatinine 0.9 0.5 - 1.4 06/12/2017 [facility] ELECTROLYTES AGAP 10.9 10.0 - 20.0 04/30/2017 [facility] ELECTROLYTES eGFR 97 04/30/2017 Result Comment: [...] should be multiplied by the estimated BMI. [facility] ELECTROLYTES Calcium Lvl 8.1 8.5 - 10.5 04/30/2017 [facility] ELECTROLYTES CO2 27 24 - 32 04/30/2017 [facility] ELECTROLYTES Potassium Lvl 3.9 3.5 - 5.1 04/30/2017 [facility] ELECTROLYTES Sodium Lvl 141 135 - 145 04/30/2017 [facility] ELECTROLYTES Chloride Lvl 107 95 - 109 04/30/2017 [facility] ELECTROLYTES BUN 15 7 - 22 04/30/2017 [facility] ELECTROLYTES Creatinine Lvl 0.7 6 0.50 - 1.40 04/30/2017 [facility] ELECTROLYTES Glucose Lvl 84 70 - 99 04/30/2017 [facility] HEMATOLOGY MCHC 33.2 32.0 - 36.0 04/30/2017 [facility] HEMATOLOGY MCH 30.2 27.0 - 31.0 04/30/2017 [facility] HEMATOLOGY MCV 90.9 80.0 - 94.0 04/30/2017 [facility] HEMATOLOGY Hct 34.4 42.0 - 54.0 04/30/2017 [facility] HEMATOLOGY MPV 7.0 7.4 - 10.4 04/30/2017 [facility] HEMATOLOGY Platelet 164 133 - 450 04/30/2017 [facility] HEMATOLOGY RDW 15.7 11.5 - 14.5 04/30/2017 [facility] HEMATOLOGY Hgb 11.4 14.0 - 18.0 04/30/2017 [facility] HEMATOLOGY RBC 3.78 4.70 - 6.10 04/30/2017 [facility] HEMATOLOGY WBC 5.6 3.7 - 10.4 04/30/2017 [facility] HEMATOLOGY Monocytes # 0.5 0.0 - 0.8 04/30/2017 [facility] HEMATOLOGY Eosinophils # 0.2 0.0 - 0.5 04/30/2017 [facility] HEMATOLOGY Lymphocytes # 1.5 1.0 - 5.5 04/30/2017 [facility] HEMATOLOGY Monocytes 8.9 2.0 - 12.0 04/30/2017 [facility] Lymphocytes 26.3 20.0 - 40.0 04/30/2017 [facility] HEMATOLOGY Segs 59.6 45.0 - 75.0 04/30/2017 [facility] HEMATOLOGY Segs-Bands # 3.3 1.5 - 8.1 04/30/2017 [facility] Basophils 0.8 0.0 - 1.0 04/30/2017 [facility] HEMATOLOGY Eosinophils 4.4 0.0 - 4.0 04/30/2017 [facility] CHEM PANEL Creatinine Lvl 0.95 0.50 - 1.40 04/29/2017 [facility] CHEM PANEL BUN 15 7 - 22 04/29/2017 [facility] CHEM PANEL Glucose Lvl 96 70 - 99 04/29/2017 [facility] CHEM PANEL Calcium Lvl 8.7 8.5 - 10.5 04/29/2017 [facility] CHEM PANEL CO2 30 24 - 32 04/29/2017 [facility] CHEM PANEL Chloride Lvl 101 95 [...] should be multiplied by the estimated BMI. [facility] CHEM PANEL AGAP 10.7 10.0 - 20.0 04/29/2017 [facility] HEMATOLOGY Lymphocytes 25.1 20.0 - 40.0 04/29/2017 [facility] HEMATOLOGY Segs 64.2 45.0 - 75.0 04/29/2017 [facility] HEMATOLOGY Monocytes 7.0 2.0 - 12.0 04/29/2017 [facility] HEMATOLOGY Basophils 0.9 0.0 - 1.0 04/29/2017 [facility] HEMATOLOGY Segs-Bands # 3.9 1.5 - 8.1 04/29/2017 [facility] HEMATOLOGY Eosinophils 2.8 0.0 - 4.0 04/29/2017 [facility] HEMATOLOGY Lymphocytes # 1.5 1.0 - 5.5 04/29/2017 [facility] HEMATOLOGY Eosinophils # 0.2 0.0 - 0.5 04/29/2017 [facility] HEMATOLOGY Basophils # 0.1 0.0 - 0.2 04/29/2017 [facility] HEMATOLOGY Monocytes # 0.4 0.0 - 0.8 04/29/2017 [facility] HEMATOLOGY Platelet 190 133 - 450 04/29/2017 [facility] HEMATOLOGY RDW 15.7 11.5 - 14.5 04/29/2017 [facility] MPV 6.9 7.4 - 10.4 04/29/2017 [facility] MCHC 32.7 32.0 - 36.0 04/29/2017 [facility] HEMATOLOGY RBC 4.34 4.70 - 6.10 04/29/2017 [facility] WBC 6.0 3.7 - 10.4 04/29/2017 [facility] HEMATOLOGY Hct 39.6 42.0 - 54.0 04/29/2017 [facility] HEMATOLOGY MCV 91.3 80.0 - 94.0 04/29/2017 [facility] HEMATOLOGY MCH 29.8 27.0 - 31.0 04/29/2017 [facility] HEMATOLOGY Hgb 13.0 14.0 - 18.0 04/29/2017 [facility] LIPIDS VLDL 29 04/29/2017 [facility] LDL (Calculated) 96 <=99 mg/dL 04/29/2017 [facility] LIPIDS Trig 143 <=149 mg/dL 04/29/2017 [facility] LIPIDS Chol 184 <=199 mg/dL 04/29/2017 [facility] HDL 59 >=61 mg/dL 04/29/2017 [facility] CHD Risk 3.12 4.00 - 7.30 04/29/2017 [facility] Pathology Reports No Data Provided for This Section Diagnostic Reports Report Value Date Source Abdomen/Pelvis CTA Patient Bereket abdul: TERESA WARD : 1955; Age: 63 years y/o Male MR: [id number] * CT ANGIOGRAPHY OF THE ABDOMEN \\T\\ [...] lumbar spine from L2 through S1. SL: [id number] 10/02/2018 [facility] Tibia fibula series DX Exam: [...] Impression: Right nephrolithiasis. Right ureteral stent. 11/18/2017 [facility] Abdomen AP DX Clinical Indicat ion: [...] portion of the stent. BONILLA: KPAPEDRO 09/02/2017 [facility] Renal pyelogram retrograde DX Patient Name: TERESA WARD : 1955; Age: 61 years y/o Male MR: [id number] RETROGRADE PYELOGRAPHY, RIGHT HISTORY: Calculus at right [...] bladder. Please refer to urologist's notes. BONILLA: [id number] 08/16/2017 [facility] Scrotal/Testicle w Doppler US Testicular ultrasound [...] right epididymal head cyst. SL: MORENO 08/16/2017 [facility] Abdomen/Pelvis CTA CTA ABDOMEN /PELVIS WITH [...] is interval increase in hydronephrosis. SL:16 08/16/2017 [facility] Chest 2 views DX Clinical Latoya [...] from the previous study. SL: MGLASER-M 08/15/2017 [facility] Chest/Abd/Pelvis CTA Patient N sharla: TERESA WARD : 1955; Age: 61 years y/o Male MR: [id number] Study: Chest/Abd/Pelvis CTA 06/12/2017 8:49 AM TREASURY SPECIALIST Ordering Physician: Rock Reese MD Clinical Indication: [...] thrombosed infrarenal abdominal aortic aneurysm sac. SL: [id number] 06/12/2017 [facility] Chest/Abdominal Aorta with Runoff CTA Patient Name: TERESA WARD : 1955; Age: 61 years y/o Male MR: [id number] Study: Chest/Abdominal Aorta with Runoff CTA 04/11/2017 [...] negative cervical spine series.. SL: 12 03/23/2014 [facility] Consultation Notes No Data Provided for This Section Discharge Summaries No Data Provided for This Section History and Physicals No Data Provided for This Section Vital Signs Vital Sign Value Date Comments Source Systolic (mm Hg) 173 11/26/2017 [facility] Diastolic (mm Hg) 65 11/26/2017 [facility] Systolic (mm Hg) 170 11/26/2017 [facility] Diastolic (mm Hg) 57 11/26/2017 [facility] Systolic (mm Hg) 169 11/26/2017 [facility] Diastolic (mm Hg) 57 11/26/2017 [facility] Respitory Rate 20 11/26/2017 [facility] Respitory Rate 18 11/26/2017 [facility] Heart Rate 56 11/26/2017 [facility] Respitory Rate 17 11/26/2017 [facility] Temperature Oral (F) 98.3 F 11/19/2017 [facility] Heart Rate 60 11/19/2017 [facility] Weight 86.08 11/19/2017 [facility] BMI Calculated 32.57 11/19/2017 [facility] Height 162.56 cm 11/19/2017 [facility] Heart Rate 71 09/10/2017 [facility] Respitory Rate 18 09/10/2017 [facility] Temperature Oral (F) 99.0 F 09/10/2017 [facility] Systolic (mm Hg) 165 09/10/2017 [facility] Diastolic (mm Hg) 61 09/10/2017 [facility] Height 162.56 cm 09/10/2017 [facility] Weight 84.091 09/10/2017 [facility] BMI Calculated 31.82 09/10/2017 [facility] Systolic (mm Hg) 104 09/02/2017 [facility] Diastolic (mm Hg) 82 09/02/2017 [facility] Respitory Rate 16 09/02/2017 [facility] Temperature Oral (F) 98.7 F 09/02/2017 [facility] Respitory Rate 16 09/02/2017 [facility] Temperature Oral (F) 98.7 F 09/02/2017 [facility] Systolic (mm Hg) 134 09/02/2017 [facility] Diastolic (mm Hg) 66 09/02/2017 [facility] Weight 81.818 09/02/2017 [facility] BMI Calculated 34.08 09/02/2017 [facility] Systolic (mm Hg) 125 09/02/2017 [facility] Diastolic (mm Hg) 81 09/02/2017 [facility] Height 154.94 cm 09/02/2017 [facility] Respitory Rate 18 09/02/2017 [facility] Heart Rate 85 09/02/2017 [facility] Temperature Oral (F) 98.3 F 09/02/2017 [facility] Systolic (mm Hg) 127 08/16/2017 [facility] Diastolic (mm Hg) 69 08/16/2017 [facility] Respitory Rate 16 08/16/2017 [facility] Heart Rate 64 08/16/2017 [facility] Temperature Oral (F) 97.5 F 08/16/2017 [facility] Heart Rate 73 08/16/2017 [facility] Systolic (mm Hg) 146 08/16/2017 [facility] Diastolic (mm Hg) 74 08/16/2017 [facility] Respitory Rate 16 08/16/2017 [facility] Systolic (mm Hg) 146 08/16/2017 [facility] Diastolic (mm Hg) 74 08/16/2017 [facility] Respitory Rate 16 08/16/2017 [facility] Heart Rate 73 08/16/2017 [facility] Temperature Oral (F) 97.5 F 08/16/2017 [facility] Temperature Oral (F) 98.2 F 08/16/2017 [facility] Height 160.02 cm 08/15/2017 [facility] Weight 81.818 08/15/2017 [facility] BMI Calculated 31.95 08/15/2017 [facility] Systolic (mm Hg) 124 04/30/2017 [facility] Diastolic (mm Hg) 67 04/30/2017 [facility] Respitory Rate 16 04/30/2017 [facility] Heart Rate 60 04/30/2017 [facility] Temperature Oral (F) 98.1 F 04/30/2017 [facility] Heart Rate 61 04/30/2017 [facility] Temperature Oral (F) 98.2 F 04/30/2017 [facility] Respitory Rate 16 04/30/2017 [facility] Systolic (mm Hg) 93 04/30/2017 [facility] Diastolic (mm Hg) 51 04/30/2017 [facility] Systolic (mm Hg) 98 04/30/2017 [facility] Diastolic (mm Hg) 49 04/30/2017 [facility] Respitory Rate 16 04/30/2017 [facility] Heart Rate 56 04/30/2017 [facility] Temperature Oral (F) 98.1 F 04/30/2017 [facility] BMI Calculated 32.68 04/29/2017 [facility] Weight 86.364 04/29/2017 [facility] Height 162.56 cm 04/29/2017 [facility] Diastolic (mm Hg) 68 03/23/2014 [facility] Respitory Rate 16 03/23/2014 [facility] Systolic (mm Hg) 163 03/23/2014 [facility] Temperature Oral (F) 97.8 F 03/23/2014 [facility] Heart Rate 60 03/23/2014 [facility] Weight 90.909 03/23/2014 [facility] Respitory Rate 16 03/23/2014 [facility] Temperature Oral (F) 98.1 F 03/23/2014 [facility] Diastolic (mm Hg) 77 03/23/2014 [facility] Heart Rate 65 03/23/2014 [facility] Systolic (mm Hg) 145 03/23/2014 [facility] BMI Calculated 34.4 03/23/2014 [facility] Height 162.56 cm 03/23/2014 [facility] Encounters Location Location Details Encounter Type Encounter Number Reason For Visit Attending Provider ADM Date DC Date Status Source [facility] [id number] An Oliveros 03/23/2014 03/23/2014 [facility] [id number] Ranjan Gil 04/11[facility]2017 [facility] [id number] Ranjan Gil 04/29/2017 04/30/2017 [facility] Outpatient [id number] Rock Reese 06/12/2017 06/13/2017 [facility] Inpatient [id number] Ranjan Gil 08/15/2017 08[facility]17[facility]2017 [facility] [facility] Emergency [id number] Reece Puentes 09/02/2017 09/02/2017 [facility] Outpatient [id number] Jose Guadalupe Jenkins 09/10/2017 09/10/2017 [facility] Outpatient [id number] Jose Guadalupe Jenkins 11/18/2017 11/19/2017 [facility] Day Surgery [id number] [facility]26[facility]2017 [facility] [id number] Gary Mayers 02/04/2018 02/05/2018 FARHAD Arboleda [facility] Outpatient [id number] Ranjan Gil 10/02/2018 10/03/2018 [facility] Procedures Procedure Code Date Perfomer Comments Source AAA - Repair of abdominal aortic aneurys m using bifurcation graft [id number] [facility] Fortune[facility] [id number] [facility] Miscellaneous operations<sup>1</sup> [id number] back surge ry FARHAD Arboleda,[facility] Cystoscopy [id number] [facility]WORK[facility] HerbertaBoston [facility] Procedure on back<sup>2</sup> [id number] Surgery [facility] Assessment and Plan Assessment and Plan [...] doing well with no other complaints. 08/17/2017 [facility] Extracted from:Title: Clinical Document Author: Taniya [...] Palpable FA. Telemetry: Normal sinus rhythm 04/30/2017 [facility] Plan of Care No Data Provided [...] Cessation Counseling No entered on: 11/19/17 11/19/2017 [facility] Social History TypeResponse Smoking Status Never smoker, Exposure to Tobacco Smoke None, Cigarette Smoking Last 365 Days No, Reg Smoking Cessation Counseling No 03/23/2014 [facility] Family History No Data Provided for This Section Advance Directives No Data Provided for This Section Functional Status No Data Provided for This Section
--- OUTSIDE RECORDS SUMMARY | 2019-12-15 13:09 | XMS REPORT | Continuity of Care Document ---
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 (FLOMAX) 0.4 mg Cp24 24 hr capsule 2017-02-02 08:33:0 2 Yes .4mg Q.5D Take 0.4 mg by mouth 2 (two) times daily. [facility] allopurinol (ZYLOPRIM) 300 MG tablet 2017-02-02 08:33:02 Ye s 300mg QD Take 300 mg by mouth daily. [facility] Allopurinol Allopurinol Yes 300 Daily [facility] Aspirin (Aspir 81) 81 Mg TABLET. Aspirin (Aspir 81) 81 Mg TABLET. Yes 81 Use As Directed [facility] Atorvastatin Calcium (Lipitor) 20 Mg TABLET Atorvastat in Calcium (Lipitor) 20 Mg TABLET Yes [address] [facility] Minocycline Hcl Minocycline Hcl Yes 100 Every 12 Hours [facility] Tamsulosin Hcl (Flomax*) 0.4 Mg CAP Tamsulosin Hcl (Flomax*) 0.4 Mg C AP Yes .4 Daily [facility] Tramadol Hcl (Ultram) 50 Mg TABLET Tramadol Hcl (Ultram) 50 Mg TABLET Yes 50 Every 8 Hours for Pain [facility] Furosemide (Lasix) 40 Mg TABLET Furosemide (Lasix) 40 Mg TABLET 2019-12-06 00:00:00 No 40 Daily [facility] Hydrochlorothiazide Hydrochlorothiazide 2019-12-06 00:00:00 No 12.5 Daily [facility] Metoprolol Succinate Metoprolol Succinate 2019-12-06 00:00:00 No 50 Daily [facility] Atenolol Atenolol 2019-11-26 00:00:00 No 50 Daily [facility] Allopurinol Allopurinol 2019-11-01 00:00:00 No U nknown Dose [facility] Atenolol Atenolol 2019-11-01 00:00:00 No Unknown Dose [facility] Doxazosin Mesylate Doxazosin Mesylate 2019-11-01 00:00:00 No Unknown Dose [facility] Dutasteride (Avodart) 0.5 Mg CAPSULE Dutasteride (Avodart) 0.5 M g CAPSULE 2019-11-01 00:00:00 No .5 Daily [facility] Naproxen Naproxen 2019-11-01 00:00:00 No Unknown Dose [facility] Tramadol Hcl (Ultram) 50 Mg TABLET Tramadol Hcl (Ultram) 50 Mg T ABLET 2019-11-01 00:00:00 No 50 Q6h Prn [facility] Vital Signs Vital Name Observation Time Observation Value Comments Source Weight 2019-12-08 16:11:00 180 [lb_av] [facility] BMI (Body Mass Index) 2019-12-08 16:11:00 30.9 kg/m2 [facility] Body Temperature 2019-12-06 16:00:00 98.2 [degF] [facility] BMI (Body Mass Index) 2019-12-04 22:06:00 30.9 kg/m2 [facility] Weight 2019-12-04 08:06:00 180 [lb_av] [facility] Body Temperature 2019-11-27 08:37:00 97.7 [degF] [facility] Weight 2019-11-26 18:28:00 180 [lb_av] [facility] BMI (Body Mass Index) 2019-11-26 18:28:00 30.9 kg/m2 [facility] Systolic (mm Hg) 2017-11-26 15:30:00 [facility] [place] Diastolic (mm Hg) 2017-11-26 15:30:00 [facility] [place] Systolic (mm Hg) 2017-11-26 14:45:00 [facility] [place] Diastolic (mm Hg) 2017-11-26 14:45:00 [facility] [place] Systolic (mm Hg) 2017-11-26 14:30:00 [facility] [place] Diastolic (mm Hg) 2017-11-26 14:30:00 [facility] [place] Respitory Rate 2017-11-26 14:15:00 [facility] [place] Respitory Rate 2017-11-26 14:00:00 [facility] [place] Heart Rate 2017-11-26 11:48:00 [facility] [place] Respitory Rate 2017-11-26 11:48:00 [facility] [place] Temperature Oral (F) 2017-11-19 14:05:00 98.3 F [facility] Heart Rate 2017-11-19 14:05:00 [facility] [place] Weight 2017-11-19 14:01:00 [facility] BMI Calculated 2017-11-19 14:01:00 [facility] [place] Height 2017-11-19 14:01:00 162.56 cm [facility] Heart Rate 2017-09-10 22:55:00 [facility] [place] Respitory Rate 2017-09-10 22:55:00 [facility] [place] Temperature Oral (F) 2017-09-10 22:55:00 99.0 F [facility] Systolic (mm Hg) 2017-09-10 22:55:00 [place] Diastolic (mm Hg) 2017-09-10 22:55:00 [facility] [place] Height 2017-09-10 21:51:00 162.56 cm [facility] Weight 2017-09-10 21:51:00 [facility] BMI Calculated 2017-09-10 21:51:00 [facility] [place] Systolic (mm Hg) 2017-09-02 14:28:00 [place] Diastolic (mm Hg) 2017-09-02 14:28:00 [facility] [place] Respitory Rate 2017-09-02 14:28:00 [facility] [place] Temperature Oral (F) 2017-09-02 14:28:00 98.7 F [facility] Respitory Rate 2017-09-02 13:14:00 [facility] [place] Temperature Oral (F) 2017-09-02 13:14:00 98.7 F [facility] Systolic (mm Hg) 2017-09-02 13:14:00 [place] Diastolic (mm Hg) 2017-09-02 13:14:00 [facility] [place] Weight 2017-09-02 11:24:00 [facility] BMI Calculated 2017-09-02 11:24:00 [facility] [place] Systolic (mm Hg) 2017-09-02 11:24:00 [place] Diastolic (mm Hg) 2017-09-02 11:24:00 [facility] [place] Height 2017-09-02 11:24:00 154.94 cm [facility] [place] Respitory Rate 2017-09-02 11:24:00 [facility] [place] Heart Rate 2017-09-02 11:24:00 [facility] [place] Temperature Oral (F) 2017-09-02 11:24:00 98.3 F [facility] Systolic (mm Hg) 2017-08-16 23:30:00 [place] Diastolic (mm Hg) 2017-08-16 23:30:00 [facility] [place] Respitory Rate 2017-08-16 23:30:00 [facility] [place] Heart Rate 2017-08-16 23:30:00 [facility] [place] Temperature Oral (F) 2017-08-16 23:30:00 97.5 F [facility] [place] Heart Rate 2017-08-16 22:41:00 [facility] [place] Systolic (mm Hg) 2017-08-16 22:41:00 [place] Diastolic (mm Hg) 2017-08-16 22:41:00 [facility] [place] Respitory Rate 2017-08-16 22:41:00 [facility] [place] Systolic (mm Hg) 2017-08-16 22:30:00 [place] [place] Diastolic (mm Hg) 2017-08-16 22:30:00 [facility] [place] Respitory Rate 2017-08-16 22:30:00 [facility] [place] Heart Rate 2017-08-16 22:30:00 [facility] [place] Temperature Oral (F) 2017-08-16 22:30:00 97.5 F [facility] Temperature Oral (F) 2017-08-16 22:11:00 98.2 F [facility] Height 2017-08-15 22:40:00 160.02 cm [facility] Weight 2017-08-15 22:40:00 [facility] BMI Calculated 2017-08-15 22:40:00 [facility] [place] Systolic (mm Hg) 2017-04-30 16:37:00 [place] Diastolic (mm Hg) 2017-04-30 16:37:00 [facility] [place] Respitory Rate 2017-04-30 16:37:00 [facility] [place] Heart Rate 2017-04-30 16:37:00 [facility] [place] Temperature Oral (F) 2017-04-30 16:37:00 98.1 F [facility] Heart Rate 2017-04-30 12:44:00 [facility] [place] Temperature Oral (F) 2017-04-30 12:44:00 98.2 F [facility] Respitory Rate 2017-04-30 12:44:00 [facility] [place] Systolic (mm Hg) 2017-04-30 12:44:00 [facility] [place] Diastolic (mm Hg) 2017-04-30 12:44:00 [facility] [place] Systolic (mm Hg) 2017-04-30 08:58:00 [facility] [place] Diastolic (mm Hg) 2017-04-30 08:58:00 [facility] [place] Respitory Rate 2017-04-30 08:58:00 [facility] [place] Heart Rate 2017-04-30 08:58:00 [facility] [place] Temperature Oral (F) 2017-04-30 08:58:00 98.1 F [facility] BMI Calculated 2017-04-29 16:55:00 [facility] [place] Weight 2017-04-29 16:55:00 [facility] [place] Height 2017-04-29 16:55:00 162.56 cm [facility] [place] Diastolic (mm Hg) 2014-03-23 18:05:00 [facility] [place] Respitory Rate 2014-03-23 18:05:00 [facility] [place] Systolic (mm Hg) 2014-03-23 18:05:00 [facility] [place] Temperature Oral (F) 2014-03-23 18:05:00 97.8 F [facility] Heart Rate 2014-03-23 18:05:00 [facility] [place] Weight 2014-03-23 16:46:00 [facility] Respitory Rate 2014-03-23 16:46:00 [facility] [place] Temperature Oral (F) 2014-03-23 16:46:00 98.1 F [facility] Diastolic (mm Hg) 2014-03-23 16:46:00 [facility] [place] Heart Rate 2014-03-23 16:46:00 [facility] Systolic (mm Hg) 2014-03-23 16:46:00 [facility] [place] BMI Calculated 2014-03-23 16:46:00 [facility] [place] Height 2014-03-23 16:46:00 162.56 cm [facility] [place] Procedures Procedure Date / Time Performed Performing Clinician [facility] e Computed tomography angiography of abdom en and pelvis without then with contrast 2019-12-06 00:00:00 [facility] INSERT CARD RSYNC DEFIB PULS GEN IN CHEST SUBCU/FASCIA , OPEN 2019-11-26 00:00:00 [facility] INSERTION OF DEFIB LEAD INTO L VENTRICLE, PERC APPROACH 00:00:00 [facility] INSERTION OF DEFIB LEAD INTO R VENTRICLE, PERC APPROACH 00:00:00 [facility] INSERTION OF DEFIBRILLATOR LEAD INTO R ATRIUM, PERC AP PROACH 2019-11-26 00:00:00 [facility] L HRT ARTERY/VENTRICLE ANGIO 2019-11-02 00:00:00 [facility] AAA - Repair of abdominal aortic aneurysm using bifurcation monisha t [facility] Cholecyst[facility] [place] Miscellaneous operations<sup>1</sup> [facility] [place] Cystoscopy [facility] [place] Procedure on back<sup>2</sup> [facility] [place] Plan of Care Planned Activity Planned Date Details Comments Source Future Scheduled Test 2020-04-06 00:00:00 IMM Influenza Seas onal Apr to September (>/= 19 yrs) [code = IMM Influenza Seasonal Apr to September (>/= 19 yrs)] [facility] Scheduled Test 2018 00:00:00 IMM Pneumococcal A ge 65 and Up [code = IMM Pneumococcal Age 65 and Up] [facility] Scheduled Test 2003-09-16 00:00:00 Colorectal Cancer Scrn Annual (FIT/FOBT) Age 50 to 75 [code = Colorectal Cancer Scrn Annual (FIT/FOBT) Age 50 to 75] [facility] Encounters Start Date/Time End Date/Time Encounter Type Admission Type [facility] Care Department Encounter ID Source 2019-12-08 15:28:00 2019-12-08 18:26:00 Departed Emergency Room [facility] [id number] [facility] 2019-12-04 09:09:00 2019-12-06 17:20:00 Discharged Inpatient 1 ROBERT MENDOZA [facility] [id number] [facility] 2019-11-25 13:06:00 2019-11-27 11:10:00 Discharged Inpatient 1 JASON GIL [facility] [id number] [facility] 2019-11-02 10:55:00 2019-11-02 10:55:00 Registered Surgical Day Care [facility] [id number] [facility] 2019-10-28 19:11:00 2019-10-28 21:09:00 Departed Emergency [facility] [id number] [facility] 2019-01-06 08:19:31 2019-01-06 08:19:[address] [facility] [id number] [facility] 2018-12-23 08:22:31 2018-12-23 08:22:[address] [facility] [id number] [facility] 2018-12-17 16:57:05 2018-12-17 16:57:[address] [facility] [id number] [facility] 2018-12-16 00:00:00 2018-12-16 00:00:[address] [facility] [id number] [facility] 2018-12-13 00:00:00 2018-12-13 00:00:[address] [facility] [id number] [facility] 2018-12-12 12:13:44 2018-12-12 12:13:44 Emergency [facility] [id number] [facility] 2018-12-12 11:35:30 2018-12-12 11:35:[address] [facility] [id number] [facility] 2018-12-12 00:00:00 2018-12-12 00:00:[address] [facility] [id number] [facility] 2018-12-12 00:00:00 2018-12-12 00:00:[address] [facility] [id number] [facility] 2018-12-12 00:00:00 2018-12-12 00:00:[address] [facility] [id number] [facility] 2018-10-02 08:30:00 2018-10-02 23:59:00 Outpatient Jason Gil [facility] [id number] 2018-02-04 10:40:00 2018-02-04 23:59:00 Outpatient Gary Mayers [facility] [id number] 2017-11-26 05:29:00 2017-11-26 10:40:00 Outpatient Jose Guadalupe Jenkins [facility] [id number] 2017-11-18 09:29:00 2017-11-18 23:59:00 Outpatient Jose Guadalupe Jenkins [facility] [id number] 2017-09-10 09:00:00 2017-09-10 12:00:00 Outpatient Jose Guadalupe Jenkins [facility] [id number] 2017-09-02 05:16:00 2017-09-02 09:05:00 Outpatient Reece Puentes [facility] [id number] 2017-08-15 16:18:00 2017-08-16 20:18:00 Outpatient Kelby Leigh [facility] [id number] 2017-06-12 08:00:00 2017-06-12 23:59:00 Outpatient Melchor Reese [facility] [id number] 2017-04-29 11:10:00 2017-04-30 15:48:00 Outpatient Jason Gil [facility] [id number] 2017-04-11 08:22:00 2017-04-11 23:59:00 Outpatient Minna Gil [facility] [id number] 2014-03-23 11:44:00 2014-03-23 13:47:00 Outpatient Keith Oliveros [facility] IE [id number] Results Test Description Test Time Test Comments Results Result Comments Source CTA ABD/PELVIS 2019-12-06 13:18:00 [place] [address] Patient Name: TERESA WARD MR #: [id number] : 1955 Age/Sex: 64/M Req #: [id number] Adm Physician: ROBERT MENDOZA MD Ordered by: JASON GIL MD Report #: [id number] Location: [facility] Room/Bed: [place] [address] Procedure: [id number] CT/CTA ABD/PELVIS Exam Date: 12/06/19 Exam Time: 1200 REPORT STATUS: Signed CTA of the abdomen and pelvis. History: Abdominal aortic aneurysm. Comparison: CTA chest/abdomen/pelvis from 02/01/2017. Technique: Multidetector CT scanning of the abdomen and pelvis was performed from the level of the lung bases to the inferior pubic ra mi after intravenous administration of contrast in the arterial phase only. Coronal and sagittal multiplanar reformations as well as 3-D reformations of the abdominal aorta were obtained. RADIATION DOSE: Total DLP: 671.70 mGy*cm Dose modulation, iterative reconstruction, and/or weight based adjustment of the mA/kV was utilized to reduce the radiation dose to as low as reasonably achievable. FINDINGS: Vascular: The distal descending thoracic aorta measures 2.9 cm in maximal AP diameter with stable amount of intramural hematoma. There is slightly increased intramural hematoma present at the level of diaphragmatic hiatus resulting in irregular luminal contour. There is aneurysmal dilatation of the abdominal aorta distal to the diaphragmatic hiatus at the level of the celiac access measuring 4.9 x 3.8 cm in maximal dimensions, previously 4.8 x 3.8 cm. The celiac axis, SMA, and bilateral renal arteries remain patent. Again identified are postsurgical changes from endovascular infrarenal abdominal aortic aneurysm repair with graft placement. The graft remains patent. The aneurysm sac measures 4.9 x 6.1 cm in maximal dimensions, previously 4.6 x 5.4 cm when measuring in similar technique. Small amount of high density material is noted within the aneurysm sac (axial image 79). However, precontrast and delayed phase images are not ob tained for evaluation for endoleak. The bilateral common iliac, external iliac, and internal iliac arteries are patent with atherosclerotic calcifications within its course and branch vessels. The bilateral common femoral and visualized portions the superficial femoral arteries are patent. Surgical clips noted within the left groin. NONVASCULAR: There is elevation of the left hemidiaphragm with associated compressive atelectasis of the left lower lobe. The right lung bases are grossly clear. Partially visualized pacing leads noted within the heart. The liver is normal in size and attenuation. The gallbladder is surgically absent. There is no biliary ductal dilatation. There is a small hiatal hernia present. The stomach, spleen, pancreas, and bilateral adrenal glands are unremarkable. The kidneys are normal in size and location and enhance symmetrically. There is no evidence for hydronephrosis. The ureters are normal in course and caliber. The partially distended urinary bladder demonstrates no significant abnormalities. The prostate is grossly unremarkable. The IVC is normal in caliber. Please note evaluation the bowel is limited without the use of enteric contrast material. The visualized loops of small and large bowel demonstrate no evidence of obstruction or inflammation. There is no ascites or intracranial free air. There are fat-containing ventral hernia is present, similar to the prior examination. Small amount of subcutaneous gas noted within the anterior abdominal wall which may reflect injection sites. There are multilevel degenerative changes of the lumbar spine. The osseous structures otherwise demonstrate no evidence for acute fracture or destructive process. The extraperitoneal soft tissues are unremarkable IMPRESSION: 1. Stable postsurgical changes from endovascular infrarenal abdominal aortic aneurysm repair. The infrarenal abdominal aortic aneurysm sac now measures 4.9 x 6.1 cm in maximal dimensions, slightly increased from the prior examination from 02/01/2017. Please note evaluation for endoleak cannot be performed as precontrast and delayed phase images were not obtained. Small amount of nonspecific high density material is noted within the aneurysm sac and an endoleak is possible. Consider comparison with noncontrast examination. 2. 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 There is slightly increased surrounding intramural hematoma resulting in luminal irregularity. 3. Small hiatal hernia. 4. Fat-containing ventral hernias 5. Additional stable findings as above. Signed by: Dr. Raffy Caputo MD on 12/06/2019 1:57 PM Dictated By: RAFFY CAPUTO MD [id number] Transcribed By: CADEN on 12/06/19 [id number] COPY TO: JASON GIL MD Blood hemoglobin measurement (moles/volume) 2019-12-06 08:50 :00 Test Item Hemoglobin (test code = 37456-6) 12.2 14.0-18.0 [facility] hematoc[facility] (volume fraction)2019-12-06 08:50:00* Test Item Value Reference Range Interpretation Comments Hematocrit (test code = 4544-3) 38.3 38.2-49.6 [facility] Center[facility] time (PT) in platelet poor plasma by coagulation [id number] 08:50:00* Test Item Value Reference Range Interpretation Comments Prothrombin Time (test code = 5902-2) 13.1 11.9-14.5 [facility] Platelet poor plasma by Coagulation [id number] 08:50:00* Test Item Value Reference Range Interpretation Comments Prothromb Time International Ratio (test code = 6301-6) 0.94 Oral Anticoagulant Therapy INR Values:1. Low Intensity Therapy 1.5 - 2.02 . Moderate Intensity Therapy 2.0 - 3.03. High Intensity Therapy(1) 2.5 - 3. 54. High Intensity Therapy(2) 3.0 - 4.05. Panic Value INR > 5.0 [facility] CenterActivated partial thromboplastin time (aPTT) in platelet poor plasma by coagulation [id number] 08:50:00* Test Item Value Reference Range Interpretation Comments Activated Partial Thromboplast Time (test code = 05035-0) 31.0 23.8-35.5 [facility] measurement (moles/volume)2019-12-06 08:50:00* Test Item Value Reference Range Interpretation Comments Hemoglobin (test code = 09016-7) 12.2 14.0-18.0 [facility] hematocrit (volume fraction)2019-12-06 08:50:00* Test Item Value Reference Range Interpretation Comments Hematocrit (test code = 4544-3) 38.3 38.2-49.6 [facility] Center[facility] time (PT) in platelet poor plasma by coagulation [id number] 08:50:00* Test Item Value Reference Range Interpretation Comments Prothrombin Time (test code = 5902-2) 13.1 11.9-14.5 [facility] CenterINR in Platelet poor plasma by Coagulation [id number] 08:50:00* Test Item Value Reference Range Interpretation Comments Prothromb Time International Ratio (test code = 6301-6) 0.94 Oral Anticoagulant Therapy INR Values:1. Low Intensity Therapy 1.5 - 2.02 . Moderate Intensity Therapy 2.0 - 3.03. High Intensity Therapy(1) 2.5 - 3. 54. High Intensity Therapy(2) 3.0 - 4.05. Panic Value INR > 5.0 [facility] CenterActivated partial thromboplastin time (aPTT) in platelet poor plasma by coagulation zjfob9978-10-86 08:50:00* Test Item Value Reference Range Interpretation Comments Activated Partial Thromboplast Time (test code = 64340-1) 31.0 23.8-35.5 [facility] CenterBlood leukocytes automated count (number/volume)2019-12-06 04:15:00* Test Item Value Reference Range Interpretation Comments White Blood Count (test code = 6690-2) 6.28 4.8-10.8 [facility] CenterBlood erythrocytes automated count (number/volume)2019-12-06 04:15:00* Test Item Value Reference Range Interpretation Comments Red Blood Count (test code = 789-8) 3.48 4.3-5.7 [facility] CenterAutomated erythrocyte mean corpuscular gsdzho5008-34-23 04:15:00* Test Item Value Reference Range Interpretation Comments Mean Corpuscular Volume (test code = 787-2) 98.3 81-99 [facility] CenterAutomated erythrocyte mean corpuscular hemoglobin (mass per erythrocyte)2019-12-06 04:15:00* Test Item Value Reference Range Interpretation Comments Mean Corpuscular Hemoglobin (test code = 785-6) 31.3 28-32 [facility] CenterAutomated erythrocyte mean corpuscular hemoglobin concentration measurement (mass/volume)2019-12-06 04:15:00* Test Item Value Reference Range Interpretation Comments Mean Corpuscular Hemoglobin Concent (test code = 786-4) 31.9 31-35 [facility] CenterRDW LpmFw-Jmr0532-17-01 04:15:00* Test Item Value Reference Range Interpretation Comments Red Cell Distribution Width (test code = 18166-3) 14.3 11.7 -14.4 [facility] CenterAutomated blood platelet count (count/volume)2019-12-06 04:15:00* Test Item Value Reference Range Interpretation Comments Platelet Count (test code = 777-3) 88 140-360 [facility] CenterAutomated blood segmented neutrophil count as percentage of total idnombjpji2212-44-52 04:15:00* Test Item Value Reference Range Interpretation Comments Neutrophils (%) (Auto) (test code = 93857-9) 62.0 38.7-80.0 [facility] CenterAutomated blood lymphocyte count as percentage ot total pzwhazheee7649-80-98 04:15:00* Test Item Value Reference Range Interpretation Comments Lymphocytes (%) (Auto) (test code = 736-9) 23.1 18.0-39.1 [facility] CenterAutomated blood monocyte count as percentage of total qmzbkfotau2606-67-32 04:15:00* Test Item Value Reference Range Interpretation Comments Monocytes (%) (Auto) (test code = 5905-5) 8.9 4.4-11.3 [facility] CenterAutomated blood eosinophil count as percentage of total kijrymrijn0577-89-55 04:15:00* Test Item Value Reference Range Interpretation Comments Eosinophils (%) (Auto) (test code = 713-8) 5.3 0.0-6.0 [facility] CenterAutomated blood basophil count as percentage of total malbxmwhkq8714-58-93 04:15:00* Test Item Value Reference Range Interpretation Comments Basophils (%) (Auto) (test code = 706-2) 0.5 0.0-1.0 [facility] CenterFluoroscopic procedure less than one hour gshysmre2309-73-52 04:15:00* Test Item Value Reference Range Interpretation Comments IM GRANULOCYTES % (test code = IM GRANULOCYTES %) 0.2 0.0- 1.0 [facility] CenterAutomated blood neutrophil count 2019-12-06 04:15:00* Test Item Value Reference Range Interpretation Comments Neutrophils # (Auto) (test code = 751-8) 3.9 2.1-6.9 [facility] CenterBlood lymphocytes count (number/volume) 2019-12-06 04:15:00* Test Item Value Reference Range Interpretation Comments Lymphocytes # (Auto) (test code = 14798-2) 1.5 1.0-3.2 [facility] CenterBlood monocytes automated count (number/volume)2019-12-06 04:15:00* Test Item Value Reference Range Interpretation Comments Monocytes # (Auto) (test code = 742-7) 0.6 0.2-0.8 [facility] CenterAutomated blood eosinophil count 2019-12-06 04:15:00* Test Item Value Reference Range Interpretation Comments Eosinophils # (Auto) (test code = 711-2) 0.3 0.0-0.4 [facility] CenterAutomated blood basophil count (count/volume)2019-12-06 04:15:00* Test Item Value Reference Range Interpretation Comments Basophils # (Auto) (test code = 704-7) 0.0 0.0-0.1 [facility] CenterFluoroscopic procedure less than one hour togdgrdh0004-40-49 04:15:00* Test Item Value Reference Range Interpretation Comments Absolute Immature Granulocyte (auto (virgen t code = Absolute Immature Granulocyte (auto) 0.01 0-0.1 [facility] sodium [facility] (moles/volume)2019-12-06 04:15:00* Test Item Value Reference Range Interpretation Comments Sodium Level (test code = 2951-2) 139 136-145 [facility] Systemerum or plasma potassium measurement (moles/volume)2019-12-06 04:15:00* Test Item Value Reference Range Interpretation Comments Potassium Level (test code = 2823-3) 3.8 3.5-5.1 [facility] Systemerum or plasma chloride measurement (moles/volume)2019-12-06 04:15:00* Test Item Value Reference Range Interpretation Comments Chloride Level (test code = 2075-0) 108 98-107 [facility] Systemerum or plasma carbon dioxide, total measurement (moles/volume)2019-12-06 04:15:00* Test Item Value Reference Range Interpretation Comments Carbon Dioxide Level (test code = 2028-9) 25 22-29 [facility] Systemerum or plasma anion dcj9191-26-39 04:15:00* Test Item Value Reference Range Interpretation Comments Anion Gap (test code = 47747-4) 9.8 8-16 [facility] Systemerum or plasma urea nitrogen measurement (mass/volume)2019-12-06 04:15:00* Test Item Value Reference Range Interpretation Comments Blood Urea Nitrogen (test code = 3094-0) 20 7-26 [facility] Systemerum or plasma creatinine measurement (mass/volume)2019-12-06 04:15:00* Test Item Value Reference Range Interpretation Comments Creatinine (test code = 2160-0) 0.97 0.72-1.25 [facility] Systemerum or plasma urea nitrogen/creatinine mass httmz1495-41-67 04:15:00* Test Item Value Reference Range Interpretation Comments BUN/Creatinine Ratio (test code = 3097-3) 21 6-25 [facility] CenterEstimated glomerular filtration rate (GFR) leatvlrtwsyri5542-19-50 04:15:00* Test Item Value Reference Range Interpretation Comments Estimat Glomerular Filtration Rate (test code = 952524126) > 60 >60 Ranges were taken from the National Kidney Disease Education Program and the [facility] literature.Reference ranges:60 or greater: Vowczt16-00 ( for 3 consecutive months): Chronic kidney disease 15 or less: Kidney failureWilson N. Jones Regional Medical CenterGlucose cscprpgwixp5261-11-89 04:15:00* Test Item Value Reference Range Interpretation Comments Glucose Level (test code = HON6913) 83 74-118 [facility] Systemerum or plasma calcium measurement (mass/volume)2019-12-06 04:15:00* Test Item Value Reference Range Interpretation Comments Calcium Level (test code = 12786-1) 7.8 8.4-10.2 [facility] Systemerum or plasma total bilirubin measurement (mass/volume)2019-12-06 04:15:00* Test Item Value Reference Range Interpretation Comments Total Bilirubin (test code = 1975-2) 0.6 0.2-1.2 [facility] CenterFluoroscopic procedure less than one hour afrdutws8706-14-31 04:15:00* Test Item Value Reference Range Interpretation Comments Aspartate Amino Transf (AST/SGOT) (test code = Aspartate Amino Transf (AST/SGOT)) 24 5-34 [facility] Systemerum or plasma alanine aminotransferase measurement (enzymatic activity/volume)2019-12-06 04:15:00* Test Item Value Reference Range Interpretation Comments Alanine Aminotransferase (ALT/SGPT) (test code = 1742-6) 23 0-55 [facility] Systemerum or plasma protein measurement (mass/volume)2019-12-06 04:15:00* Test Item Value Reference Range Interpretation Comments Total Protein (test code = 2885-2) 6.1 6.5-8.1 [facility] Systemerum or plasma albumin measurement (mass/volume)2019-12-06 04:15:00* Test Item Value Reference Range Interpretation Comments Albumin (test code = 1751-7) 2.7 3.5-5.0 [facility] CenterPlasma globulin measurement (mass/volume) 2019-12-06 04:15:00* Test Item Value Reference Range Interpretation Comments Globulin (test code = 73305-5) 3.4 2.3-3.5 [facility] Systemerum or plasma albumin/globulin mass twejv3197-88-03 04:15:00* Test Item Value Reference Range Interpretation Comments Albumin/Globulin Ratio (test code = 1759-0) 0.8 0.8-2.0 [facility] Systemerum or plasma alkaline phosphatase measurement (enzymatic activity/volume)2019-12-06 04:15:00* Test Item Value Reference Range Interpretation Comments Alkaline Phosphatase (test code = 6768-6) 83 40-150 [facility] CenterBlood leukocytes automated count (number/volume)2019-12-06 04:15:00* Test Item Value Reference Range Interpretation Comments White Blood Count (test code = 6690-2) 6.28 4.8-10.8 [facility] CenterBlood erythrocytes automated count (number/volume)2019-12-06 04:15:00* Test Item Value Reference Range Interpretation Comments Red Blood Count (test code = 789-8) 3.48 4.3-5.7 [facility] CenterAutomated erythrocyte mean corpuscular eqwesv5991-64-61 04:15:00* Test Item Value Reference Range Interpretation Comments Mean Corpuscular Volume (test code = 787-2) 98.3 81-99 [facility] CenterAutomated erythrocyte mean corpuscular hemoglobin (mass per erythrocyte)2019-12-06 04:15:00* Test Item Value Reference Range Interpretation Comments Mean Corpuscular Hemoglobin (test code = 785-6) 31.3 28-32 [facility] CenterAutomated erythrocyte mean corpuscular hemoglobin concentration measurement (mass/volume)2019-12-06 04:15:00* Test Item Value Reference Range Interpretation Comments Mean Corpuscular Hemoglobin Concent (test code = 786-4) 31.9 31-35 [facility] CenterRDW PqeEo-Vpi7068-79-01 04:15:00* Test Item Value Reference Range Interpretation Comments Red Cell Distribution Width (test code = 98656-2) 14.3 11.7 -14.4 [facility] CenterAutomated blood platelet count (count/volume)2019-12-06 04:15:00* Test Item Value Reference Range Interpretation Comments Platelet Count (test code = 777-3) 88 140-360 [facility] CenterAutomated blood segmented neutrophil count as percentage of total xkawzhlbtu3576-10-45 04:15:00* Test Item Value Reference Range Interpretation Comments Neutrophils (%) (Auto) (test code = 01144-2) 62.0 38.7-80.0 [facility] CenterAutomated blood lymphocyte count as percentage ot total lxapliyupp7241-77-33 04:15:00* Test Item Value Reference Range Interpretation Comments Lymphocytes (%) (Auto) (test code = 736-9) 23.1 18.0-39.1 [facility] CenterAutomated blood monocyte count as percentage of total skeurepbhc1282-70-88 04:15:00* Test Item Value Reference Range Interpretation Comments Monocytes (%) (Auto) (test code = 5905-5) 8.9 4.4-11.3 [facility] CenterAutomated blood eosinophil count as percentage of total gprtjxkqrk3692-39-29 04:15:00* Test Item Value Reference Range Interpretation Comments Eosinophils (%) (Auto) (test code = 713-8) 5.3 0.0-6.0 [facility] CenterAutomated blood basophil count as percentage of total etiaksjfdv4785-10-43 04:15:00* Test Item Value Reference Range Interpretation Comments Basophils (%) (Auto) (test code = 706-2) 0.5 0.0-1.0 [facility] CenterFluoroscopic procedure less than one hour jplhyqqd8689-88-53 04:15:00* Test Item Value Reference Range Interpretation Comments IM GRANULOCYTES % (test code = IM GRANULOCYTES %) 0.2 0.0- 1.0 [facility] CenterAutomated blood neutrophil count 2019-12-06 04:15:00* Test Item Value Reference Range Interpretation Comments Neutrophils # (Auto) (test code = 751-8) 3.9 2.1-6.9 [facility] CenterBlood lymphocytes count (number/volume) 2019-12-06 04:15:00* Test Item Value Reference Range Interpretation Comments Lymphocytes # (Auto) (test code = 68610-4) 1.5 1.0-3.2 [facility] CenterBlood monocytes automated count (number/volume)2019-12-06 04:15:00* Test Item Value Reference Range Interpretation Comments Monocytes # (Auto) (test code = 742-7) 0.6 0.2-0.8 [facility] CenterAutomated blood eosinophil count 2019-12-06 04:15:00* Test Item Value Reference Range Interpretation Comments Eosinophils # (Auto) (test code = 711-2) 0.3 0.0-0.4 [facility] CenterAutomated blood basophil count (count/volume)2019-12-06 04:15:00* Test Item Value Reference Range Interpretation Comments Basophils # (Auto) (test code = 704-7) 0.0 0.0-0.1 [facility] CenterFluoroscopic procedure less than one hour znhbbqfc1477-40-99 04:15:00* Test Item Value Reference Range Interpretation Comments Absolute Immature Granulocyte (auto (virgen t code = Absolute Immature Granulocyte (auto) 0.01 0-0.1 [facility] Systemerum or plasma sodium measurement (moles/volume)2019-12-06 04:15:00* Test Item Value Reference Range Interpretation Comments Sodium Level (test code = 2951-2) 139 136-145 [facility] Systemerum or plasma potassium measurement (moles/volume)2019-12-06 04:15:00* Test Item Value Reference Range Interpretation Comments Potassium Level (test code = 2823-3) 3.8 3.5-5.1 [facility] Systemerum or plasma chloride measurement (moles/volume)2019-12-06 04:15:00* Test Item Value Reference Range Interpretation Comments Chloride Level (test code = 2075-0) 108 98-107 [facility] Systemerum or plasma carbon dioxide, total measurement (moles/volume)2019-12-06 04:15:00* Test Item Value Reference Range Interpretation Comments Carbon Dioxide Level (test code = 2028-9) 25 22-29 [facility] Systemerum or plasma anion jvj5936-10-42 04:15:00* Test Item Value Reference Range Interpretation Comments Anion Gap (test code = 55251-8) 9.8 8-16 [facility] Systemerum or plasma urea nitrogen measurement (mass/volume)2019-12-06 04:15:00* Test Item Value Reference Range Interpretation Comments Blood Urea Nitrogen (test code = 3094-0) 20 7-26 [facility] Systemerum or plasma creatinine measurement (mass/volume)2019-12-06 04:15:00* Test Item Value Reference Range Interpretation Comments Creatinine (test code = 2160-0) 0.97 0.72-1.25 [facility] Systemerum or plasma urea nitrogen/creatinine mass ucekn9299-32-86 04:15:00* Test Item Value Reference Range Interpretation Comments BUN/Creatinine Ratio (test code = 3097-3) 21 6-25 [facility] CenterEstimated glomerular filtration rate (GFR) jpjpctmexuydd0569-08-47 04:15:00* Test Item Value Reference Range Interpretation Comments Estimat Glomerular Filtration Rate (test code = 587517599) > 60 >60 Ranges were taken from the National Kidney Disease Education Program and the [facility] Kidney Foundation literature.Reference ranges:60 or greater: Hxknij83-41 ( for 3 consecutive months): Chronic kidney disease 15 or less: Kidney failureWilson N. Jones [facility] Medical CenterGlucose gweislebshs2960-02-03 04:15:00* Test Item Value Reference Range Interpretation Comments Glucose Level (test code = VXL7278) 83 74-118 [facility] Systemerum or plasma calcium measurement (mass/volume)2019-12-06 04:15:00* Test Item Value Reference Range Interpretation Comments Calcium Level (test code = 15652-6) 7.8 8.4-10.2 [facility] Systemerum or plasma total bilirubin measurement (mass/volume)2019-12-06 04:15:00* Test Item Value Reference Range Interpretation Comments Total Bilirubin (test code = 1975-2) 0.6 0.2-1.2 [facility] CenterFluoroscopic procedure less than one hour eihrgjjg1109-53-60 04:15:00* Test Item Value Reference Range Interpretation Comments Aspartate Amino Transf (AST/SGOT) (test code = Aspartate Amino Transf (AST/SGOT)) 24 5-34 [facility] Systemerum or plasma alanine aminotransferase measurement (enzymatic activity/volume)2019-12-06 04:15:00* Test Item Value Reference Range Interpretation Comments Alanine Aminotransferase (ALT/SGPT) (test code = 1742-6) 23 0-55 [facility] Systemerum or plasma protein measurement (mass/volume)2019-12-06 04:15:00* Test Item Value Reference Range Interpretation Comments Total Protein (test code = 2885-2) 6.1 6.5-8.1 [facility] Systemerum or plasma albumin measurement (mass/volume)2019-12-06 04:15:00* Test Item Value Reference Range Interpretation Comments Albumin (test code = 1751-7) 2.7 3.5-5.0 [facility] CenterPlasma globulin measurement (mass/volume) 2019-12-06 04:15:00* Test Item Value Reference Range Interpretation Comments Globulin (test code = 47487-6) 3.4 2.3-3.5 [facility] Systemerum or plasma albumin/globulin mass bvbcu5395-09-24 04:15:00* Test Item Value Reference Range Interpretation Comments Albumin/Globulin Ratio (test code = 1759-0) 0.8 0.8-2.0 [facility] Systemerum or plasma alkaline phosphatase measurement (enzymatic activity/volume)2019-12-06 04:15:00* Test Item Value Reference Range Interpretation Comments Alkaline Phosphatase (test code = 6768-6) 83 40-150 [facility] CenterUrine color sbgdyxckizlks4692-12-79 14:00:00* Test Item Value Reference Range Interpretation Comments Urine Color (test code = 5778-6) YELLOW YELLOW [facility] CenterUrine nqgnjac9306-50-02 14:00:00* Test Item Value Reference Range Interpretation Comments Urine Clarity (test code = 73259-4) SL CLOUDY CLEAR [facility] Systempecific gravity of Urine by Test strip 2019-12-05 14:00:00* Test Item Value Reference Range Interpretation Comments Urine Specific [place] (test code = 5811-5) 1.025 1.010-1.02 5 [facility] CenterUrine pH measurement by automated test zvzas4916-65-95 14:00:00* Test Item Value Reference Range Interpretation Comments Urine pH (test code = 54466-6) 6 5-7 [facility] CenterUrine leukocyte esterase detection by oclrmbzn4557-83-86 14:00:00* Test Item Value Reference Range Interpretation Comments Urine Leukocyte Esterase (test code = 5799-2) NEGATIVE NEGATIVE [facility] CenterUrine nitrite ogqlvader1446-40-30 14:00:00* Test Item Value Reference Range Interpretation Comments Urine Nitrite (test code = 77558-5) NEGATIVE NEGATIVE [facility] CenterUrine protein measurement by test strip (mass/volume)2019-12-05 14:00:00* Test Item Value Reference Range Interpretation Comments Urine Protein (test code = 5804-0) 1+ NEGATIVE [facility] CenterUrine glucose sgaxkpjto6706-08-43 14:00:00* Test Item Value Reference Range Interpretation Comments Urine Glucose (UA) (test code = 2349-9) NEGATIVE NEGATIVE [facility] CenterUrine ketones detection by automated test vmzld5719-70-82 14:00:00* Test Item Value Reference Range Interpretation Comments Urine Ketones (test code = 65728-0) NEGATIVE NEGATIVE [facility] CenterUrine urobilinogen measurement by test strip (mass/volume)2019-12-05 14:00:00* Test Item Value Reference Range Interpretation Comments Urine Urobilinogen (test code = 80606-0) 0.2 0.2-1 [facility] CenterUrine total bilirubin measurement (mass/volume)2019-12-05 14:00:00* Test Item Value Reference Range Interpretation Comments Urine Bilirubin (test code = 1978-6) NEGATIVE NEGATIVE [facility] CenterUrine erythrocytes jbrvfbznc2157-21-72 14:00:00* Test Item Value Reference Range Interpretation Comments Urine Blood (test code = 61527-3) NEGATIVE NEGATIVE [facility] CenterAutomated urine sediment leukocyte count by microscopy (number/high power field)2019-12-05 14:00:00* Test Item Value Reference Range Interpretation Comments Urine WBC (test code = 5821-4) 0-5 0-5 [facility] CenterErythrocytes detection in urine sediment by light mazxbteupk7969-30-04 14:00:00* Test Item Value Reference Range Interpretation Comments Urine RBC (test code = 35544-9) 0-5 0-5 [facility] CenterBacteria detection in urine sediment by light xmxkynepgj7076-83-25 14:00:00* Test Item Value Reference Range Interpretation Comments Urine Bacteria (test code = 98898-6) RARE NONE [facility] CenterEpithelial cells detection in urine sediment by light wrckunqtdw4317-29-13 14:00:00* Test Item Value Reference Range Interpretation Comments Urine Epithelial Cells (test code = 72686-9) FEW NONE [facility] CenterUrine color wtgryyjvqvizi8712-74-00 14:00:00* Test Item Value Reference Range Interpretation Comments Urine Color (test code = 5778-6) YELLOW YELLOW [facility] CenterUrine rjolziw9781-90-84 14:00:00* Test Item Value Reference Range Interpretation Comments Urine Clarity (test code = 58016-9) SL CLOUDY CLEAR [facility] Systempecific gravity of Urine by Test strip 2019-12-05 14:00:00* Test Item Value Reference Range Interpretation Comments Urine Specific [place] (test code = 5811-5) 1.025 1.010-1.02 5 [facility] CenterUrine pH measurement by automated test xiwqv2073-62-58 14:00:00* Test Item Value Reference Range Interpretation Comments Urine pH (test code = 62591-0) 6 5-7 [facility] CenterUrine leukocyte esterase detection by mdikwzwa2757-04-90 14:00:00* Test Item Value Reference Range Interpretation Comments Urine Leukocyte Esterase (test code = 5799-2) NEGATIVE NEGATIVE [facility] CenterUrine nitrite vhseldihb9147-17-62 14:00:00* Test Item Value Reference Range Interpretation Comments Urine Nitrite (test code = 34597-5) NEGATIVE NEGATIVE [facility] CenterUrine protein measurement by test strip (mass/volume)2019-12-05 14:00:00* Test Item Value Reference Range Interpretation Comments Urine Protein (test code = 5804-0) 1+ NEGATIVE [facility] CenterUrine glucose krrklxweb8322-55-78 14:00:00* Test Item Value Reference Range Interpretation Comments Urine Glucose (UA) (test code = 2349-9) NEGATIVE NEGATIVE [facility] CenterUrine ketones detection by automated test hmchx7612-42-72 14:00:00* Test Item Value Reference Range Interpretation Comments Urine Ketones (test code = 04406-1) NEGATIVE NEGATIVE [facility] CenterUrine urobilinogen measurement by test strip (mass/volume)2019-12-05 14:00:00* Test Item Value Reference Range Interpretation Comments Urine Urobilinogen (test code = 15032-1) 0.2 0.2-1 [facility] CenterUrine total bilirubin measurement (mass/volume)2019-12-05 14:00:00* Test Item Value Reference Range Interpretation Comments Urine Bilirubin (test code = 1978-6) NEGATIVE NEGATIVE [facility] CenterUrine erythrocytes fgjncecpd6976-82-31 14:00:00* Test Item Value Reference Range Interpretation Comments Urine Blood (test code = 71605-7) NEGATIVE NEGATIVE [facility] CenterAutomated urine sediment leukocyte count by microscopy (number/high power field)2019-12-05 14:00:00* Test Item Value Reference Range Interpretation Comments Urine WBC (test code = 5821-4) 0-5 0-5 [facility] CenterErythrocytes detection in urine sediment by light xhzcdwumgn6771-02-34 14:00:00* Test Item Value Reference Range Interpretation Comments Urine RBC (test code = 97782-0) 0-5 0-5 [facility] CenterBacteria detection in urine sediment by light jmidnywpvd0196-82-95 14:00:00* Test Item Value Reference Range Interpretation Comments Urine Bacteria (test code = 51849-1) RARE NONE [facility] CenterEpithelial cells detection in urine sediment by light wmcdgjfduc9602-90-49 14:00:00* Test Item Value Reference Range Interpretation Comments Urine Epithelial Cells (test code = 89538-1) FEW NONE [facility] CenterCHES SINGLE (PORTABLE)2019-12-05 07:41:00 [facility] [address] [address] Patient Name: TERESA WARD MR #: [id number] : 1955 Age/Sex: 64/M Req #: [id number] Adm Physician: ROBERT MENDOZA MD Ordered by: YANE LUTHER MD Report #: [id number] Location: ICU Room/Bed: ICU [facility]ly [facility], 1928–1983 Procedure: [id number] DX/CHEST SINGLE (P ORTABLE) Exam Date: 12/05/19 Exam Time: 07 REPORT STATUS: Signed EXAMINATION: [facility] SINGLE (PORTABLE) INDICATION: CHF. COMPARISON: Chest radiogra ph 12-04-2019. FINDINGS: TUBES and LINES: Left-sided AICD in unchang ed position. LUNGS: Low lung volumes. Mild perihilar and interstitial opaci ties. Patchy opacities in the left lower lung. Mild elevation of the left rebecca diaphragm. PLEURA: Trace left pleural effusion. No pneumothorax. HEART AND MEDIASTINUM: The cardiomediastinal silhouette is mildly enlarged. There are atherosclerotic calcifications within the aorta. BONES AND SOFT TISSUES : No acute osseous lesion. Soft tissues are unremarkable. UPPER ABDOMEN : No free air under the diaphragm. IMPRESSION: Mild pulmonary inters titial edema. Unchanged patchy left basilar opacity, more likely atelectasis t roberts infection. Trace left pleural effusion. Signed by: Dr. Anusha Wilcox MD o n 12/05/2019 7:42 AM Dictated By: ANUSHA WILCOX MD 1 Transcribed By: CADEN on 12/05/19741 COPY TO: YANE LUTHER MD Serum or plasma triglyceride measurement (mass/volume)2019-12-05 04:25:00* Test Item Value Reference Range Interpretation Comments Triglycerides Level (test code = 2571-8) 75 0-149 [facility] [place] [facility] plasma cholesterol measurement (mass/volume)2019-12-05 04:25:00* Test Item Value Reference Range Interpretation Comments Cholesterol Level (test code = 2093-3) 89 0-199 Less than 200 mg/dL Low Ycss927 - 239 mg/dL Borderline Aewl139 m g/dl and greater High Risk [facility] [place] [facility] Systemerum or plasma cholesterol in LDL measurement (mass/volume) 2019-12-05 04:25:00* Test Item Value Reference Range Interpretation Comments LDL Cholesterol (test code = 2089-1) 33 60-130 [facility] [place] [facility] Systemerum or plasma cholesterol in HDL measurement (mass/volume)2019-12-05 04:25:00* Test Item Value Reference Range Interpretation Comments HDL Cholesterol (test code = 2085-9) 41 40-60 [facility] [place] [facility] Systemerum or plasma total cholesterol/cholesterol in HDL mass gzojz2999-25-71 04:25:00* Test Item Value Reference Range Interpretation Comments Cholesterol/HDL Ratio (test code = 9830-1) 2.2 3.9-4.7 [facility] [place] [facility] Systemerum or plasma triglyceride measurement (mass/volume)2019-12-05 04:25:00* Test Item Value Reference Range Interpretation Comments Triglycerides Level (test code = 2571-8) 75 0-149 [facility] [place] [facility] Systemerum or plasma cholesterol measurement (mass/volume)2019-12-05 04:25:00* Test Item Value Reference Range Interpretation Comments Cholesterol Level (test code = 2093-3) 89 0-199 Less than 200 mg/dL Low Gyoe368 - 239 mg/dL Borderline Ozvz844 m g/dl and greater High Risk [facility] [place] [facility] Systemerum or plasma cholesterol in LDL measurement (mass/volume) 2019-12-05 04:25:00* Test Item Value Reference Range Interpretation Comments LDL Cholesterol (test code = 2089-1) 33 60-130 [facility] [place] [facility] Systemerum or plasma cholesterol in HDL measurement (mass/volume)2019-12-05 04:25:00* Test Item Value Reference Range Interpretation Comments HDL Cholesterol (test code = 2085-9) 41 40-60 [facility] [place] [facility] Systemerum or plasma total cholesterol/cholesterol in HDL mass pcgrf6816-81-83 04:25:00* Test Item Value Reference Range Interpretation Comments Cholesterol/HDL Ratio (test code = 9830-1) 2.2 3.9-4.7 [facility] [place] [facility] Systemerum or plasma creatine kinase measurement (enzymatic activity/volume)2019-12-04 21:25:00* Test Item Value Reference Range Interpretation Comments Creatine Kinase (test code = 2157-6) 93 30-200 [facility] [place] [facility] Systemerum or plasma creatine kinase MB measurement (mass/volume)2019-12-04 21:25:00* Test Item Value Reference Range Interpretation Comments Creatine Kinase MB (test code = 88635-3) 2.40 0-5.0 [facility] CenterTroponin I measurement by highly sensitive enzyme kfnwkbmejth4771-06-38 21:25:00* Test Item Value Reference Range Interpretation Comments Troponin I (test code = 99969-2) 0.294 0-0.300 [facility] [place] [facility] Systemerum or plasma creatine kinase measurement (enzymatic activity/volume)2019-12-04 21:25:00* Test Item Value Reference Range Interpretation Comments Creatine Kinase (test code = 2157-6) 93 30-200 [facility] [place] [facility] Systemerum or plasma creatine kinase MB measurement (mass/volume)2019-12-04 21:25:00* Test Item Value Reference Range Interpretation Comments Creatine Kinase MB (test code = 84810-3) 2.40 0-5.0 [facility] CenterTroponin I measurement by highly sensitive enzyme pzcvwfptdjf5215-32-26 21:25:00* Test Item Value Reference Range Interpretation Comments Troponin I (test code = 32755-0) 0.294 0-0.300 [facility] CenterFluoroscopic procedure less than one hour spnoicoy0882-33-62 10:20:00* Test Item Value Reference Range Interpretation Comments Lactic Acid Level (test code = Lactic Acid Level) 2.0 0.5- 2.0 [facility] CenterBlood ehhbfnr8264-48-53 10:20:00* Test Item Value Reference Range Interpretation Comments Blood Culture (test code = 66916714) NO GROWTH AFTER 48 HOURS [facility] CenterFluoroscopic procedure less than one hour qsgmxepa9987-76-50 10:20:00* Test Item Value Reference Range Interpretation Comments Lactic Acid Level (test code = Lactic Acid Level) 2.0 0.5- 2.0 [facility] CenterBlood somgsbh2709-66-87 10:20:00* Test Item Value Reference Range Interpretation Comments Blood Culture (test code = 83925312) NO GROWTH AFTER 72 HOURS [facility] CenterCHES SINGLE (PORTABLE)2019-12-04 09:24:[address] [address] Patient Name: TERESA WARD MR #: [id number] : 1955 Age/Sex: 64/M Req #: [id number] Adm Physician: Ordered by: FRANK DOMINGUEZ MD Report #: [id number] Location: ER Room/Bed: Procedure: DX/CHEST SINGLE (PORTABLE) Exam Date: 12/04/19 Exam Time: 0855 REPORT STATUS: Signed EXAMINATION: C HEST SINGLE (PORTABLE) INDICATION: upper back pain COMPARISON: est radiograph 11-26-2019. FINDINGS: TUBES and LINES: Left-sided AIC D in unchanged position. LUNGS: Low lung volumes. Mild perihilar and inters titial opacities. Patchy opacities in the left lower lung. Elevation of the le ft hemidiaphragm. PLEURA: Trace left pleural effusion. No pneumothorax. HEART AND MEDIASTINUM: The cardiomediastinal silhouette is mildly enlarged. There are atherosclerotic calcifications within the aorta. BONES AND SOFT TISSUES: No acute osseous lesion. Soft tissues are unremarkable. UPPER ABDOMEN: No free air under the diaphragm. IMPRESSION: Mild pulmonary interstitial edema. Unchanged patchy left basilar opacity, more likely atelec tasis than infection. Trace left pleural effusion. Signed by: Dr. Anusha vigil MD on 12/04/2019 9:39 AM Dictated By: ANUSHA WILCOX MD Electronically Sig yamil By: ANUSHA WILCOX MD on 12/04/19938 Transcribed By: CADEN on 12/04/19938 COPY TO: FRANK DOMINGUZE MD Serum or plasma magnesium measurement (mass/volume)2019-12-04 08:20:00* Test Item Value Reference Range Interpretation Comments Magnesium Level (test code = 36090-8) 1.5 1.3-2.1 [facility]-jAaj8647-58-70 08:20:00* Test Item Value Reference Range Interpretation Comments B-Type Natriuretic Peptide (test code = 83465-9) 108.0 0-100 [facility] [place] [facility] Systemerum or plasma magnesium measurement (mass/volume)2019-12-04 08:20:00* Test Item Value Reference Range Interpretation Comments Magnesium Level (test code = 17641-4) 1.5 1.3-2.1 [facility] Centerd-eTqq0336-14-79 08:20:00* Test Item Value Reference Range Interpretation Comments B-Type Natriuretic Peptide (test code = 74375-5) 108.0 0-100 [facility] SINGLE (PORTABLE)2019-11-26 19:02:[address] [place] [address] Patient Name: TERESA WARD MR #: [id number] : 1955 Age/Sex: 64/M Req #: [id number] Adm Physician: JASON GIL MD Ordered by: CLOVER AGUERO MD Report #: [id number] Location: MED/SURG Room/Bed: [facility] Procedure: [id number] DX/CHEST SING LE (PORTABLE) Exam Date: 11/26/19 Exam Time: 1750 REPORT STATUS: Signed Examination: Single AP view of the chest. COMPARISON: Portable chest 11/25/2019 IND ICATION: Status post ICD today IMPRESSION: 1. Lines and Tubes: I nterval placement of left upper chest cardiac device, with the distal tip is p rojecting in the right atrium, right ventricle and coronary sinus. 2. Mild perihilar interstitial opacities, likely reflecting mild interstitial edema. N o consolidation or definite effusion is identified. 3. Enlarged cardiac silho uette, stable Central pulmonary venous congestion. 4. No acute bony abnormal ities. Signed by: Dr. Jas Bray M.D. on 11/26/2019 7:04 PM D ictated By: JAS BRAY MD 03 COPY TO: CLOVER DUMONT MD Serum or plasma triglyceride measurement (mass/volume) 2019-11-26 03:15:00* Test Item Value Reference Range Interpretation Comments Triglycerides Level (test code = 2571-8) 93 0-149 [facility] or plasma cholesterol measurement (mass/volume)2019-11-26 03:15:00* Test Item Value Reference Range Interpretation Comments Cholesterol Level (test code = 2093-3) 91 0-199 Less than 200 mg/dL Low Gfwq128 - 239 mg/dL Borderline Ghjx079 m g/dl and greater High Risk [facility] [place] [facility] Systemerum or plasma cholesterol in LDL measurement (mass/volume) 2019-11-26 03:15:00* Test Item Value Reference Range Interpretation Comments LDL Cholesterol (test code = 2089-1) 33 60-130 [facility] [place] [facility] Systemerum or plasma cholesterol in HDL measurement (mass/volume)2019-11-26 03:15:00* Test Item Value Reference Range Interpretation Comments HDL Cholesterol (test code = 2085-9) 39 40-60 [facility] [place] [facility] Systemerum or plasma total cholesterol/cholesterol in HDL mass ctaly4640-75-30 03:15:00* Test Item Value Reference Range Interpretation Comments Cholesterol/HDL Ratio (test code = 9830-1) 2.3 3.9-4.7 [facility] [place] [facility] Systemerum or plasma creatine kinase measurement (enzymatic activity/volume)2019-11-26 03:15:00* Test Item Value Reference Range Interpretation Comments Creatine Kinase (test code = 2157-6) 322 30-200 [facility] [place] [facility] Systemerum or plasma creatine kinase MB measurement (mass/volume)2019-11-26 03:15:00* Test Item Value Reference Range Interpretation Comments Creatine Kinase MB (test code = 61142-7) 1.70 0-5.0 [facility] CenterTroponin I measurement by highly sensitive enzyme ifwpoiefeeq3366-63-93 03:15:00* Test Item Value Reference Range Interpretation Comments Troponin I (test code = 99923-3) 0.020 0-0.300 [facility] CenterFluoroscopic procedure less than one hour banohyez8255-74-63 15:46:00* Test Item Value Reference Range Interpretation [...] complexity tests.Testing performed by [facility] [address] [place], [place] [phone] Director: Guy Berkowitz M.D.[facility] # [id number] [facility] Fluoroscopic procedure less than one hour hkcihmyx4828-09-56 15:46:00* Test Item Value Reference Range Interpretation [...] complexity tests.Testing performed by [facility] [address] [phone] Director: Guy Berkowitz M.D.CLIA # [id number] [facility] Fluoroscopic procedure less than one hour hrzmztzf6297-36-35 15:46:00* Test Item Value Reference Range Interpretation [...] complexity tests.Testing performed by [facility] [address] [place] [address] [phone] Director: Guy Berkowitz M.D.CLIA # [id number] [facility] SINGLE (PORTABLE)2019-11-25 11:58:00 [address] [address] Patient Name: TERESA WARD MR #: [id number] : 1955 Age/Sex: 64/M Req #: [id number] Adm Physician: Ordered by: KORY CODY DO Report #: [id number] Location: ER Room/Bed: Procedure: [id number] DX/CHEST SINGLE (PORTABLE) Exam Date: 11/25/19 Exam [...] 11/25/19 1200 COPY TO: KORY CODY DO Blood leukocytes automated count (number/volume)2019-11-25 11:30:00* Test Item Value Reference Range Interpretation Comments White Blood Count (test code = 6690-2) 5.98 4.8-10.8 [facility] CenterBlood erythrocytes automated count (number/volume)2019-11-25 11:30:00* Test Item Value Reference Range Interpretation Comments Red Blood Count (test code = 789-8) 4.26 4.3-5.7 [facility] CenterBlood hemoglobin measurement (moles/volume)2019-11-25 11:30:00* Test Item Value Reference Range Interpretation Comments Hemoglobin (test code = 00361-4) 13.1 14.0-18.0 [facility] CenterAutomated blood hematocrit (volume fraction)2019-11-25 11:30:00* Test Item Value Reference Range Interpretation Comments Hematocrit (test code = 4544-3) 40.6 38.2-49.6 [facility] CenterAutomated erythrocyte mean corpuscular fhosyk5525-62-69 11:30:00* Test Item Value Reference Range Interpretation Comments Mean Corpuscular Volume (test code = 787-2) 95.3 81-99 [facility] CenterAutomated erythrocyte mean corpuscular hemoglobin (mass per erythrocyte)2019-11-25 11:30:00* Test Item Value Reference Range Interpretation Comments Mean Corpuscular Hemoglobin (test code = 785-6) 30.8 28-32 [facility] CenterAutcritical access hospitaled erythrocyte mean corpuscular hemoglobin concentration measurement (mass/volume)2019-11-25 11:30:00* Test Item Value Reference Range Interpretation Comments Mean Corpuscular Hemoglobin Concent (test code = 786-4) 32.3 31-35 [facility] CenterRDW NebFq-Dzy3098-71-21 11:30:00* Test Item Value Reference Range Interpretation Comments Red Cell Distribution Width (test code = 47677-8) 13.8 11.7 -14.4 [facility] CenterAutcritical access hospitaled blood platelet count (count/volume)2019-11-25 11:30:00* Test Item Value Reference Range Interpretation Comments Platelet Count (test code = 777-3) 133 140-360 [facility] CenterAutomated blood segmented neutrophil count as percentage of total cofxqajfup4902-08-21 11:30:00* Test Item Value Reference Range Interpretation Comments Neutrophils (%) (Auto) (test code = 55713-2) 66.0 38.7-80.0 [facility] CenterAutomated blood lymphocyte count as percentage ot total ywfywgnicp7609-73-63 11:30:00* Test Item Value Reference Range Interpretation Comments Lymphocytes (%) (Auto) (test code = 736-9) 23.4 18.0-39.1 [facility] CenterAutomated blood monocyte count as percentage of total fvsoowzbpm5137-91-68 11:30:00* Test Item Value Reference Range Interpretation Comments Monocytes (%) (Auto) (test code = 5905-5) 7.7 4.4-11.3 [facility] CenterAutomated blood eosinophil count as percentage of total jhghfqzacs5224-90-28 11:30:00* Test Item Value Reference Range Interpretation Comments Eosinophils (%) (Auto) (test code = 713-8) 2.2 0.0-6.0 [facility] CenterAutomated blood basophil count as percentage of total okgglwwjmf4320-80-26 11:30:00* Test Item Value Reference Range Interpretation Comments Basophils (%) (Auto) (test code = 706-2) 0.5 0.0-1.0 [facility] CenterFluoroscopic procedure less than one hour etycnxzj6512-41-46 11:30:00* Test Item Value Reference Range Interpretation Comments IM GRANULOCYTES % (test code = IM GRANULOCYTES %) 0.2 0.0- 1.0 [facility] CenterAutomated blood neutrophil count 2019-11-25 11:30:00* Test Item Value Reference Range Interpretation Comments Neutrophils # (Auto) (test code = 751-8) 4.0 2.1-6.9 [facility] CenterBlood lymphocytes count (number/volume) 2019-11-25 11:30:00* Test Item Value Reference Range Interpretation Comments Lymphocytes # (Auto) (test code = 87539-3) 1.4 1.0-3.2 [facility] CenterBlood monocytes automated count (number/volume)2019-11-25 11:30:00* Test Item Value Reference Range Interpretation Comments Monocytes # (Auto) (test code = 742-7) 0.5 0.2-0.8 [facility] CenterAutomated blood eosinophil count 2019-11-25 11:30:00* Test Item Value Reference Range Interpretation Comments Eosinophils # (Auto) (test code = 711-2) 0.1 0.0-0.4 [facility] CenterAutomated blood basophil count (count/volume)2019-11-25 11:30:00* Test Item Value Reference Range Interpretation Comments Basophils # (Auto) (test code = 704-7) 0.0 0.0-0.1 [facility] CenterFluoroscopic procedure less than one hour slnzltig1254-69-15 11:30:00* Test Item Value Reference Range Interpretation Comments Absolute Immature Granulocyte (auto (virgen t code = Absolute Immature Granulocyte (auto) 0.01 0-0.1 [facility] CenterUrine color mhbyfpfiixmvl8768-01-00 11:30:00* Test Item Value Reference Range Interpretation Comments Urine Color (test code = 5778-6) YELLOW YELLOW [facility] CenterUrine pjjlrfj1492-96-09 11:30:00* Test Item Value Reference Range Interpretation Comments Urine Clarity (test code = 99275-5) SL CLOUDY CLEAR [facility] [place] [facility] Systempecific gravity of Urine by Test strip 2019-11-25 11:30:00* Test Item Value Reference Range Interpretation Comments Urine Specific [place] (test code = 5811-5) 1.020 1.010-1.02 5 [facility] CenterUrine pH measurement by automated test eaidm1592-91-97 11:30:00* Test Item Value Reference Range Interpretation Comments Urine pH (test code = 20128-0) 5.5 5-7 [facility] CenterUrine leukocyte esterase detection by ezkvmkch8861-32-90 11:30:00* Test Item Value Reference Range Interpretation Comments Urine Leukocyte Esterase (test code = 5799-2) NEGATIVE NEGATIVE [facility] CenterUrine nitrite zkmalykeo3546-00-18 11:30:00* Test Item Value Reference Range Interpretation Comments Urine Nitrite (test code = 12936-3) NEGATIVE NEGATIVE [facility] CenterUrine protein measurement by test strip (mass/volume)2019-11-25 11:30:00* Test Item Value Reference Range Interpretation Comments Urine Protein (test code = 5804-0) 2+ NEGATIVE [facility] CenterUrine glucose veokfessg3283-70-44 11:30:00* Test Item Value Reference Range Interpretation Comments Urine Glucose (UA) (test code = 2349-9) NEGATIVE NEGATIVE [facility] CenterUrine ketones detection by automated test rttur1861-44-36 11:30:00* Test Item Value Reference Range Interpretation Comments Urine Ketones (test code = 65068-7) NEGATIVE NEGATIVE [facility] CenterUrine urobilinogen measurement by test strip (mass/volume)2019-11-25 11:30:00* Test Item Value Reference Range Interpretation Comments Urine Urobilinogen (test code = 72377-8) 0.2 0.2-1 [facility] CenterUrine total bilirubin measurement (mass/volume)2019-11-25 11:30:00* Test Item Value Reference Range Interpretation Comments Urine Bilirubin (test code = 1978-6) NEGATIVE NEGATIVE [facility] CenterUrine erythrocytes bmzjltzwe3639-90-16 11:30:00* Test Item Value Reference Range Interpretation Comments Urine Blood (test code = 45495-2) TRACE NEGATIVE [facility] CenterAutomated urine sediment leukocyte count by microscopy (number/high power field)2019-11-25 11:30:00* Test Item Value Reference Range Interpretation Comments Urine WBC (test code = 5821-4) NONE 0-5 [facility] CenterErythrocytes detection in urine sediment by light unnwdvgmvn6442-06-90 11:30:00* Test Item Value Reference Range Interpretation Comments Urine RBC (test code = 86599-6) 0-5 0-5 [facility] CenterBacteria detection in urine sediment by light sluimpfuuf7185-13-79 11:30:00* Test Item Value Reference Range Interpretation Comments Urine Bacteria (test code = 22686-7) MODERATE NONE [facility] CenterEpithelial cells detection in urine sediment by light tnrdojfjuk9093-82-06 11:30:00* Test Item Value Reference Range Interpretation Comments Urine Epithelial Cells (test code = 34092-3) RARE NONE [facility] CenterHyaline casts detection in urine sediment by light fbmqwggjag5670-54-01 11:30:00* Test Item Value Reference Range Interpretation Comments Urine Hyaline Casts (test code = 53457-3) 6-10 0-1 [facility] [place] [facility] Systemerum or plasma sodium measurement (moles/volume)2019-11-25 11:30:00* Test Item Value Reference Range Interpretation Comments Sodium Level (test code = 2951-2) 142 136-145 [facility] [place] [facility] Systemerum or plasma potassium measurement (moles/volume)2019-11-25 11:30:00* Test Item Value Reference Range Interpretation Comments Potassium Level (test code = 2823-3) 3.8 3.5-5.1 [facility] [place] [facility] Systemerum or plasma chloride measurement (moles/volume)2019-11-25 11:30:00* Test Item Value Reference Range Interpretation Comments Chloride Level (test code = 2075-0) 102 98-107 [facility] [place] [facility] Systemerum or plasma carbon dioxide, total measurement (moles/volume)2019-11-25 11:30:00* Test Item Value Reference Range Interpretation Comments Carbon Dioxide Level (test code = 2028-9) 27 22-29 [facility] [place] [facility] Systemerum or plasma anion gri2721-97-73 11:30:00* Test Item Value Reference Range Interpretation Comments Anion Gap (test code = 33170-1) 16.8 8-16 [facility] [place] [facility] Systemerum or plasma urea nitrogen measurement (mass/volume)2019-11-25 11:30:00* Test Item Value Reference Range Interpretation Comments Blood Urea Nitrogen (test code = 3094-0) 21 7-26 [facility] [place] [facility] Systemerum or plasma creatinine measurement (mass/volume)2019-11-25 11:30:00* Test Item Value Reference Range Interpretation Comments Creatinine (test code = 2160-0) 1.26 0.72-1.25 [facility] [place] [facility] Systemerum or plasma urea nitrogen/creatinine mass zetlk5181-74-70 11:30:00* Test Item Value Reference Range Interpretation Comments BUN/Creatinine Ratio (test code = 3097-3) 17 6-25 [facility] CenterEstimated glomerular filtration rate (GFR) lxrursqbsbvkn8262-23-08 11:30:00* Test Item Value Reference Range Interpretation Comments Estimat Glomerular Filtration Rate (test code = 479639635) 57 >60 Ranges were taken from the National Kidney Disease Education Program and the [facility] Kidney Foundation literature.Reference ranges:60 or greater: Nbqqzp18-31 ( for 3 consecutive months): Chronic kidney disease 15 or less: Kidney failureWilson N. Jones Regional Medical CenterGlucose vhgrtizympw2182-04-26 11:30:00* Test Item Value Reference Range Interpretation Comments Glucose Level (test code = JUF6787) 101 74-118 [facility] [place] [facility] Systemerum or plasma calcium measurement (mass/volume)2019-11-25 11:30:00* Test Item Value Reference Range Interpretation Comments Calcium Level (test code = 59691-6) 9.6 8.4-10.2 [facility] [place] [facility] Systemerum or plasma total bilirubin measurement (mass/volume)2019-11-25 11:30:00* Test Item Value Reference Range Interpretation Comments Total Bilirubin (test code = 1975-2) 1.2 0.2-1.2 [facility] CenterFluoroscopic procedure less than one hour lpzmnmex4194-55-57 11:30:00* Test Item Value Reference Range Interpretation Comments Aspartate Amino Transf (AST/SGOT) (test code = Aspartate Amino Transf (AST/SGOT)) 33 5-34 [facility] alanine aminotransferase measurement (enzymatic activity/volume)2019-11-25 11:30:00* Test Item Value Reference Range Interpretation Comments Alanine Aminotransferase (ALT/SGPT) (test code = 1742-6) 28 0-55 [facility] plasma protein measurement (mass/volume)2019-11-25 11:30:00* Test Item Value Reference Range Interpretation Comments Total Protein (test code = 2885-2) 8.2 6.5-8.1 [facility] plasma albumin measurement (mass/volume)2019-11-25 11:30:00* Test Item Value Reference Range Interpretation Comments Albumin (test code = 1751-7) 3.8 3.5-5.0 [facility] CenterPlasma globulin measurement (mass/volume) 2019-11-25 11:30:00* Test Item Value Reference Range Interpretation Comments Globulin (test code = 87468-9) 4.4 2.3-3.[address] [facility] or plasma albumin/globulin mass thxdu1393-67-82 11:30:00* Test Item Value Reference Range Interpretation Comments Albumin/Globulin Ratio (test code = 1759-0) 0.9 0.8-2.0 [facility] Systemer[facility] or plasma alkaline phosphatase measurement (enzymatic activity/volume)2019-11-25 11:30:00* Test Item Value Reference Range Interpretation Comments Alkaline Phosphatase (test code = 6768-6) 107 40-150 [facility] CenterBNP Wcy-rNoe1295-84-21 11:30:00* Test Item Value Reference Range Interpretation Comments B-Type Natriuretic Peptide (test code = 17104-6) 110.8 0-100 [facility] CenterHyaline casts detection in urine sediment by light luxuybqthi8820-84-11 11:30:00* Test Item Value Reference Range Interpretation Comments Urine Hyaline Casts (test code = 68816-6) 6-10 0-1 [facility] CenterHyaline casts detection in urine sediment by light whxsswhkwl5451-20-44 11:30:00* Test Item Value Reference Range Interpretation Comments Urine Hyaline Casts (test code = 01391-7) 6-10 0-1 [facility]- X[facility] HIP W/PEL UNI 2+V HU2359-17-27 10:29:00 Name: TERESA WARD [facility] : 1955 Age/S:63 /M [address] [facility] Unit#:[id number] Loc: [place] [address] Phys: Rickey Patiño MD Dis Date: PHONE #: [phone] Status: REG ER FAX #: [phone] Exam Date: 01/24/2019 Reason: trauma, pain EXAMS: CPT CODE: [id number] XR HIP W/PEL UNI 2+[place] [address] CLINICAL HISTORY: trauma, pain TECHNIQUE: Neutral and [...] Signed Report - XR KNEE 3 V PA8568-65-99 10:29:00 Name: TERESA WARD [facility] : 1955 Age/S:63 /M [address] [facility] Unit#:[id number] Loc: [place] [address] Phys: Rickey Patiño MD Dis Date: PHONE #: [phone] Status: REG ER FAX #: [phone] Exam Date: 01/24/2019 Re ason: fall EXAMS: CPT CODE: [id number] XR KNEE 3 V LT [address] CLINICAL HISTORY: Pain status post f all [...] ABDOMEN COMPLETE 2018-12-25 10:55:00 Name: TERESA WARD [facility] : 1955 Age/S: 63 / M [address] Unit #: [id number] Loc: [place] [address] Phys: Davida Sanchez MD Acct: [id number] Dis Date: Status: REG CLI PHONE #: [phone] Exam Date: 12/25/2018 1018 FAX #: [phone] Reason: CIRRHOSIS EXAMS: CPT CODE: [id number] US ABDOMEN COMPLETE 36303 TECHNIQUE - US ABDOMEN COMPLETE . COMPARISON: [...] 1 Signed Report (CONTINUED) Name: TERESA WARD [facility] : 1955 Age/S: 63 / M [address] Unit #: [id number] Loc: [place] [address] Phys: Davida Sanchez MD Acct: [id number] Dis Date: Status: REG CLI PHONE #: [phone] Exam Date: 12/25/2018 1018 FAX #: [phone] Reason: CIRRHOSIS EXAMS: CPT CODE: [id number] US ABDOMEN COMPLETE 79726 < Continued> CC: Davida Sanchez MD; Rito Barnes Technologist: EDWARD DYE RT(R),RDMS Trnscb Date/Time: 12/25/2018 (986) t.LIO Orig Print D/T: S: 12/25/2018 (6937) Probe: PAGE 2 Signed Report CHEM PANEL 2018-10-02 12:57:0063[facility]annCHEM VWMMI4706-88-77 12:57:001.2[facility] UvwdyuqJHVNJGDCGIIU3718-90-38 14:17:0012.3[facility] NrhjwutJUTKKRDQNHJE6082-54-07 14:17:0081[facility] KljdialAFOGBFQLJBZP4915-58-64 14:17:000.98[facility] QFLQVLDBAYZG1001-54-16 14:17:0021[facility] NynwylqRTLGGGDCAOII5865-55-62 14:17:00 87[facility] FazzsfyVYIGAJEJLGZK2214-28-52 14:17:86917Illmmjkn HermannELECTROLYTES 2017-11-19 14:17:004.3[facility] VznllkmSONZRNJCXXXV7747-88-09 14:17:0028[facility] ZywplpjGZYKDFHLKWHP3511-13-41 14:17:32380Wjplnmnm ZkbtiejPOTRCDUASUPM7051-43-79 14:17:008.6[facility] MphkimlUUONEXASWX7199-33-30 14:17:00* Test Item Value Reference Range Interpretation Comments INR (test code = INR) 1.00 1 0.85-1.17 [facility] OrrkfvmIIIFFLMNQL5369-39-39 14:17:00* Test Item Value Reference Range Interpretation Comments PTT (test code = PTT) 30.6 s 22.9-35.8 [facility]DjglsycWJCXNTXJKF9065-17-18 14:17:00* Test Item Value Reference Range Interpretation Comments PT (test code = PT) 13.2 s 12.0-14.7 [facility] HfxjsskZDAJOYYJMY5321-32-35 14:17:000.2[facility] HermannHEMATOLOGY 2017-11-19 14:17:000.4[facility] CzlawhrDHUBHGUFJB0954-59-07 14:17:000.8[facility] FshrqzvYTMFMGKPOA4440-25-40 14:17:004.0[facility] VkaowygTAXOQSBKNK6342-28-98 14:17:008.0[facility] YijefpeWWXWVGDNEC1322-49-46 14:17:001.7[facility] DYYKTJBZPI6676-59-44 14:17:003.1[facility] DetbpmbHAHQENQNLC1180-51-97 14:17:00 30.6[facility] NhuohwzHFNVMRZBUP2990-60-91 14:17:0056.6[facility] HermannHEMATOLOGY 2017-11-19 14:17:59228Xgolpqcx IsxbcygKKYIWEZJBK0647-38-18 14:17:007.6[facility] MhzbjxuEFTRDGOSCB1021-65-56 14:17:0039.5[facility] IjalgjiYFCNDSBEOP5207-24-51 14:17:0014.5[facility] XcyjxyoYBCVWWMIWV3473-47-99 14:17:0031.9[facility] PDZWMKHAAR4359-16-83 14:17:00* Test Item Value Reference Range Interpretation Comments MCH (test code = MCH) 29.1 pg 27.0-31.0 [facility] NoaypznQDGLJSQQHU9225-59-93 14:17:0091.1[facility] HermannHEMATOLOGY 2017-11-19 14:17:0012.6[facility] QtovbhmKMLSPBTQNS3384-98-57 14:17:004.33[facility] FcqwhxvDIYWDCDZDF2453-87-45 14:17:005.6[facility] TRUSL8703-91-08 14:17:00>182[facility] CLBLP6212-40-22 14:17:00Negative (11/19/17 9:17 AM)[facility] JZJYU4347-84-50 14:17:005[facility] UWBOV1114-18-10 14:17:00Negative *NA*(11/19/17 9:17 AM)[facility] XIAGG5199-10-75 14:17:00Large *ABN*(11/19/17 9:17 AM)[facility] GDVKA8512-88-70 14:17:00Negative (11/19/17 9:17 AM)[facility] MTJGY2325-86-42 14:17:00Clear (11/19/17 9:17 AM)[facility] STOOL 2017-11-19 14:17:00* Test Item Value Reference Range Interpretation Comments UA Spec Grav (test code = UA Spec Grav) 1.017 1 [facility] AYLKW7476-71-34 14:17:00* Test Item Value Reference Range Interpretation Comments UA pH (test code = UA pH) 5.0 1 5.0-8.0 [facility] HermannCHEM LLVZR1151-82-58 22:47:0078[facility] HermannCHEM PANEL 2017-09-10 22:47:70376Uzjbawjg HermannCHEM OMQRA5312-17-19 22:47:003.9[facility] HermannCHEM CQQVP0225-30-73 22:47:98797Vpyuklcj HermannCHEM XLXGE2545-87-21 22:47:0028[facility] HermannCHEM QKWOQ3652-83-88 22:47:008.2[facility] HermannCHEM QEMQI6809-12-24 22:47:001.02[facility] HermannCHEM BABRQ8214-72-99 22:47:0020 [facility]annCHEM LLJIJ5278-51-19 22:47:51509Dcjyvkfm HermannCHEM PANEL 2017-09-10 22:47:0012.9[facility] JwkqdehDWVPZLGMLM4710-96-89 22:47:00* Test Item Value Reference Range Interpretation Comments INR (test code = INR) 1.05 1 0.85-1.17 [facility] VppgyjaORIZJJVBPN8093-44-40 22:47:00* Test Item Value Reference Range Interpretation Comments PT (test code = PT) 13.7 s 12.0-14.7 [facility] GtmryscWWUHQGTHHM5067-21-45 22:47:00* Test Item Value Reference Range Interpretation Comments PTT (test code = PTT) 33.7 s 22.9-35.8 [facility] HhxwcezUFPFMROFBB7729-06-15 22:47:0080.6[facility] HermannHEMATOLOGY 2017-09-10 22:47:0011.1[facility] AjolnwmDGTYQUISAW3006-75-91 22:47:006.5[facility] MxndtclVUNDXJXUJG3420-38-04 22:47:001.5[facility] TeupkfmZIMVWUTISI3776-14-02 22:47:000.1[facility] FsklhkvGQWHVLJFHU6013-40-61 22:47:000.4[facility] KPTEAGZCYC3235-13-92 22:47:000.8[facility] XycwcawUNVOZLTQZY5368-93-94 22:47:005.5 [facility] OjdqfwlSDMTVKLWEA8013-59-56 22:47:000.3[facility] HermannHEMATOLOGY 2017-09-10 22:47:00* Test Item Value Reference Range Interpretation Comments MCH (test code = MCH) 31.1 pg 27.0-31.0 [facility] ZgkawtcJBEXFOMUCZ9909-34-42 22:47:0095.1[facility] HermannHEMATOLOGY 2017-09-10 22:47:0031.2[facility] ZawlpjaELBASQFDPH0560-81-05 22:47:0010.2[facility] YjkihrgZZLOZAPBNT8823-22-49 22:47:003.28[facility] OtibellFIAVRWYJPU1753-20-02 22:47:006.8[facility] MyeujorNFGUNGTHPV9750-29-48 22:47:006.5[facility] OTAXWTEJBV3626-62-63 22:47:96994Ijhjhvod HfuyooxMOKUOJUQUZ6327-28-33 22:47:00 14.7[facility] IpilfrxHIRCCMUXDD5655-60-77 22:47:0032.7[facility] CZUCJ8194-20-97 22:47:00>182[facility] FLMOU0524-25-32 22:47:00 101[facility] UHBAV2915-26-62 22:47:004[facility] JGJZS2385-60-10 22:47:00Trace *ABN*(09/10/17 4:47 PM)[facility] HXAJB4429-60-96 22:47:00Negative (09/10/17 4:47 PM)[facility] STOOL 2017-09-10 22:47:00Marked *ABN*(09/10/17 4:47 PM)[facility] STOOL 2017-09-10 22:47:00* Test Item Value Reference Range Interpretation Comments UA Spec Grav (test code = UA Spec Grav) 1.018 1 [facility] LDHWX6078-84-45 22:47:00Yellow *NA*(09/10/17 4:47 PM) [facility] OVCWT9236-38-31 22:47:00* Test Item Value Reference Range Interpretation Comments UA pH (test code = UA pH) 5.0 1 5.0-8.0 [facility] WYENJ6836-95-97 22:47:00Negative *NA*(09/10/17 4:47 PM) [facility] LQLSK9943-70-51 22:47:00Large *ABN*(09/10/17 4:47 PM) [facility] HermannBLOOD BANK WFPFRHC5499-34-37 12:43:00Positive 1(09/02/17 6:43 AM) [facility] LkbgueaQWOHGKWUDPZQ7361-06-76 12:43:0011.8[facility] HermannELECTROLYTES 2017-09-02 12:43:0084[facility] HuoebaeTITJUKDOAZPR6285-31-03 12:43:008.4[facility] ZnnqlxrYQUKZRZTEMWG9575-22-65 12:43:28918Zoeadqvl KclleluPLRXYBIUWMDT6761-21-60 12:43:0026[facility] WqunulhFAIJTZAWVIIR3121-56-00 12:43:0013[facility] SHCTFUYGAKCO6598-58-75 12:43:000.96[facility] DfmnqvdWLGQVABRORDF8077-42-63 12:43:0087[facility] UgxmjgfATNMZQJZJHAW5030-83-45 12:43:59461Kqnkuecl [place] CFKLURUQTKPS1258-46-64 12:43:003.8[facility] KegtmmtXHQIDXPNXQ7399-10-49 12:43:00 3.4[facility] QhjivesBWFUWLLMYT1741-60-36 12:43:001.4[facility] HermannHEMATOLOGY 2017-09-02 12:43:000.4[facility] KeakyesKEDQCSBBRX9750-75-89 12:43:000.9[facility] BtilgvrDCBMLDVLVY2042-06-36 12:43:003.9[facility] RrtmvwoQCPMCRJZHN2319-23-10 12:43:000.2[facility] DdubaryFFYFPRFYPI3949-82-94 12:43:0025.0[facility] RNWUDHNJWI5640-30-98 12:43:007.5[facility] IffeztxHZNMAHYJPC1634-35-24 12:43:00 62.7[facility] RnxeeenOHKXIJVCOZ9986-21-84 12:43:0032.9[facility] HermannHEMATOLOGY 2017-09-02 12:43:00* Test Item Value Reference Range Interpretation Comments MCH (test code = MCH) 31.3 pg 27.0-31.0 [facility] FttmbamXKWSVVSXJI5787-29-85 12:43:0094.9[facility] HermannHEMATOLOGY 2017-09-02 12:43:0039.6[facility] ZoehomwRPEARJPICB7858-18-42 12:43:0014.7[facility] ObqxtskIPNXHFMILO5048-44-41 12:43:007.1[facility] GtfbghjDKRMHNMMVP8087-56-53 12:43:01402Pwrreydx WtdkvmbTZGBGMJCPU3324-41-58 12:43:0013.0[facility] FANZFCSBYV4317-97-30 12:43:004.17[facility] LqkpltcUDQVXMKWOJ3691-78-79 12:43:00 5.4[facility] HhxmwbyEIGWLXAMAC6065-32-91 12:43:00* Test Item Value Reference Range Interpretation Comments INR (test code = INR) 1.05 1 0.85-1.17 [facility] IzxycseWLWWLNLZVG9446-69-58 12:43:00* Test Item Value Reference Range Interpretation Comments PT (test code = PT) 13.7 s 12.0-14.7 [facility] XCDLA3584-19-02 12:06:00None Seen (09/02/17 6:06 AM) [facility] LLQNT2672-82-02 12:06:00Performed (09/02/17 6:06 AM) [facility] NVRHE7563-92-70 12:06:00Moderate *ABN*(09/02/17 6:06 AM)[facility] ASZYC7730-01-32 12:06:0015[facility] CTIAI5624-13-16 12:06:00* Test Item Value Reference Range Interpretation Comments UA pH (test code = UA pH) 7.0 1 5.0-8.0 [facility] XOMTI3366-55-97 12:06:00Negative (09/02/17 6:06 AM) [facility] GQVMD8479-55-43 12:06:00Large *ABN*(09/02/17 6:06 AM) [facility] GLBSK3951-30-51 12:06:00Marked *ABN*(09/02/17 6:06 AM) [facility] CENEX7857-81-26 12:06:00* Test Item Value Reference Range Interpretation Comments UA Spec Grav (test code = UA Spec Grav) 1.010 1 [facility] KODQA9424-37-82 12:06:00Negative (09/02/17 6:06 AM) [facility] SQBQR1428-63-29 12:06:004.0[facility] OIFSR2388-69-80 12:06:00Positive *ABN*(09/02/17 6:06 AM)[facility] XYQFF3626-02-42 12:06:00Red *ABN*(09/02/17 6:06 AM)[facility] HermannCARDIAC YWMMCBO0363-10-80 23:06:00<0.02[facility] HermannCARDIAC SNKYDEA4385-19-70 23:06:00* Test Item Value Reference Range Interpretation Comments CK MB Index (test code = CK MB Index) 1.5 1 <=2.5 [facility] HermannCARDIAC OGWLVZM6851-90-80 23:06:001.9[facility] HermannCARDIAC ZYWGRSC1217-40-00 23:06:11519Ojjyidcr HermannCHEM ANEKX6689-91-02 23:06:0077 [facility]annCHEM BMLPJ1797-37-01 23:06:007.9[facility] HermannCHEM PANEL 2017-08-15 23:06:0028[facility] HermannCHEM FEMXV0259-21-87 23:06:003.2[facility] HermannCHEM XCYCF9771-42-29 23:06:008.0[facility] HermannCHEM ATLUI2430-67-19 23:06:28599Ocmvdeqx HermannCHEM HYNKR7300-59-87 23:06:99959Wzozivqv HermannCHEM KXXNE7390-61-33 23:06:0025[facility] HermannCHEM BWTCN9104-57-22 23:06:0021 [facility] HermannCHEM OLUEP2226-47-73 23:06:00* Test Item Value Reference Range Interpretation Comments B/C Ratio (test code = B/C Ratio) 13 1 6-25 [facility] HermannCHEM GUHGN8751-70-09 23:06:0012.0[facility] HermannCHEM PANEL 2017-08-15 23:06:000.5[facility] HermannCHEM RXFKZ0531-81-98 23:06:00* Test Item Value Reference Range Interpretation Comments A/G Ratio (test code = A/G Ratio) 0.7 1 0.7-1.6 [facility]annCHEM KHXVT7476-70-15 23:06:004.8[facility] HermannCHEM PANEL 2017-08-15 23:06:001.03[facility] HermannCHEM UZNAO7807-24-83 23:06:0013[facility] HermannCHEM LGPHN1565-65-05 23:06:004.0[facility] HermannCHEM IYZYB2409-14-50 23:06:96556Popphnzx HermannCHEM GCXYM5301-57-66 23:06:0078[facility] [place] XRTLDTPYJU9082-34-98 23:06:000.6[facility] TwbgpqfYOLDFJCMCD1228-20-99 23:06:001.7 [facility] CgfxfzaUERVUUDDWT2784-58-27 23:06:004.4[facility] HermannHEMATOLOGY 2017-08-15 23:06:0010.2[facility] RxpswiqCWPQKWCSKT6857-25-20 23:06:001.6[facility] EvhrxzpXSNKIQSXZG5142-76-91 23:06:000.1[facility] XxleibmVXJVCWZUPY6147-17-75 23:06:000.7[facility] SyfdptlPDBRSAFMSK9048-03-38 23:06:0023.6[facility] [place] BDQLHCYSBC8456-51-67 23:06:0063.9[facility] ZayhnmgRMEHUZPNVI5071-29-16 23:06:00* Test Item Value Reference Range Interpretation Comments MCH (test code = MCH) 31.6 pg 27.0-31.0 [facility] UwqaynqPHCOYJNOUF9528-42-23 23:06:0095.7[facility] HermannHEMATOLOGY 2017-08-15 23:06:0033.0[facility] YfknomuEILBGTYMZJ8459-79-73 23:06:007.2[facility] WaxnntvUPEHSOHWIC8851-14-41 23:06:0015.9[facility] PjufrchXLTKUZHAEV1134-09-11 23:06:51042Ouvfkbii ErgeqgiLMDCLCUKHQ7565-07-17 23:06:0013.3[facility] [place] SQOWXBQWMI1577-27-97 23:06:0040.2[facility] TxcvcacQBWFWSADCS3001-18-04 23:06:00 4.20[facility] AwhadppCEUIYYFVTK8288-95-53 23:06:006.8[facility] XEUSR2753-34-33 22:59:003[facility] HEVQP9959-48-57 22:59:001 [facility] KZRVJ1652-71-42 22:59:00Negative *NA*(08/15/17 4:59 PM) [facility] CFASX2973-03-76 22:59:00Negative (08/15/17 4:59 PM) [facility] OEHYJ0933-52-31 22:59:00Negative (08/15/17 4:59 PM) [facility] ICBLJ8057-20-11 22:59:00Small *ABN*(08/15/17 4:59 PM) [facility] OZZGY6457-67-30 22:59:00* Test Item Value Reference Range Interpretation Comments UA pH (test code = UA pH) 6.0 1 5.0-8.0 [facility] CQBAN4154-60-47 22:59:00* Test Item Value Reference Range Interpretation Comments UA Spec Grav (test code = UA Spec Grav) 1.009 1 [facility] LPFIM9778-30-24 22:59:00Clear (08/15/17 4:59 PM)[facility] HermannCHEM BHFQB6608-66-70 15:15:0091[facility] HermannCHEM ERAVM1284-40-11 15:15:000.9[facility] MxgjwuoSSVPDNPBDHEO4372-42-14 09:38:0010.9[facility] EFRJHWCMMNEB5142-93-38 09:38:0097[facility] RuyciffQOMTYWDVFLLE5890-26-01 09:38:00 8.1[facility] VdlfqvnYKAVLFTZXDGJ5677-96-36 09:38:0027[facility] HermannELECTROLYTES 2017-04-30 09:38:003.9[facility] QcoqwmeMLCWYBHTRNQW1395-27-53 09:38:34303Agjvzsut CtbuypjCCGWYMZWOAUJ4469-68-33 09:38:13272Yqofpqsj SjfjhvpEBUQFJCXBXIA6125-59-32 09:38:0015[facility] MhvoronBUPQCSFTRRMA8559-36-66 09:38:000.76[facility] JVPPGHNWGTBG9507-34-39 09:38:0084[facility] PsucifrRUNDDTRHWO3427-22-78 09:38:00 33.2[facility] VgtoqjeDWTNJMFZNX9890-77-80 09:38:00* Test Item Value Reference Range Interpretation Comments MCH (test code = MCH) 30.2 pg 27.0-31.0 [facility] NpcsupvHTZRHTEVVC6025-44-12 09:38:0090.9[facility] HermannHEMATOLOGY 2017-04-30 09:38:0034.4[facility] XbuqwlhFCBXELBISC8531-07-00 09:38:007.0[facility] KxnsdjcQBITRFQFKJ1442-21-33 09:38:59780Tvnrnpbo NniunspUDVICDBNTT7231-85-53 09:38:0015.7[facility] PjdezvmAMVVOUCXCK0216-61-75 09:38:0011.4[facility] [place] KUQOQGEOBP7073-77-86 09:38:003.78[facility] MleqiorGWNJLVXFBE0776-73-82 09:38:00 5.6[facility] AhwursnPTMVAZJWUR2617-02-42 09:38:000.5[facility]annHEMATOLOGY 2017-04-30 09:38:000.2[facility] IfhmfylPOPLRMNIEE7340-29-73 09:38:001.5[facility] EyzcdurQEYAQYSQVV2538-34-69 09:38:008.9[facility] MkqdxrhUAOCLLKSLW2835-86-10 09:38:0026.3[facility] GgetdwhSYNETDGTPO1556-01-77 09:38:0059.6[facility] IANYQYSQKO4498-32-54 09:38:003.3[facility] KzjxpgiNZVHPWFDTZ5397-32-03 09:38:000.8 [facility] WbbncraOSLAQVSPKL7891-82-53 09:38:004.4[facility] HermannCHEM PANEL 2017-04-29 16:58:000.95[facility] HermannCHEM MEDGJ2202-01-21 16:58:0015[facility] HermannCHEM CXOMH9999-47-16 16:58:0096[facility] HermannCHEM OXJUV1240-86-22 16:58:008.7[facility] HermannCHEM OYZJN7203-03-49 16:58:0030[facility]annCHEM VGWNB2440-92-59 16:58:78324Vpypuhjy HermannCHEM DICAK0719-22-64 16:58:003.7 [facility]annCHEM COQMK0373-28-77 16:58:09951Ujgfdsra HermannCHEM PANEL 2017-04-29 16:58:0085[facility] HermannCHEM ESIRD0496-68-65 16:58:0010.7[facility] LuenmcsSLIQWYWINQ7996-28-15 16:58:0025.1[facility] FjektkdIQINGOPYZP7134-56-46 16:58:0064.2[facility] HuvixhfSVQBKAZOZE0103-53-65 16:58:007.0[facility] [place] FADOZYVLJO0997-31-53 16:58:000.9[facility] XjcvlspGSCGVGVNNB4350-95-92 16:58:003.9 [facility] GwiegxtZPECHAPHAW1397-45-64 16:58:002.8[facility] HermannHEMATOLOGY 2017-04-29 16:58:001.5[facility] SbrigleLRZFNOAPXM3269-85-53 16:58:000.2[facility] CrxspcxLXQSILCFWV3900-28-47 16:58:000.1[facility] ClcjrfiTCPVMNOCQL9452-19-96 16:58:000.4[facility] BatozrkUSPTUACDWD7319-31-97 16:58:53910Uabpbdgq [place] LPDXEWDTOX4137-69-65 16:58:0015.7[facility] CosdcliBVPKGEOBVO7901-55-04 16:58:00 6.9[facility] UgzppkbBZNFVWMYOK3663-90-26 16:58:0032.7[facility] HermannHEMATOLOGY 2017-04-29 16:58:004.34[facility] MmwhfixWHMVBTCLDD9561-51-07 16:58:006.0[facility] MqbjxajWVACMEBNEO7162-73-95 16:58:0039.6[facility] OfqcldeFUCNYUICOM9203-22-40 16:58:0091.3[facility] IipuyibYXXITYDXTC8988-50-79 16:58:00* Test Item Value Reference Range Interpretation Comments MCH (test code = MCH) 29.8 pg 27.0-31.0 [facility] GavtkouHNWUPZGNZE5258-44-55 16:58:0013.0[facility] HermannLIPIDS 2017-04-29 16:58:0029[facility] RvzotifKMNTRE1532-10-66 16:58:0096[facility] [place] FIQPQT4417-13-24 16:58:65998Cfharjfs NpzrugsQQKQXW2437-82-11 16:58:52221Mowlbzzw KlqgmhvZROZOV2582-98-44 16:58:0059[facility] UuhpacrYXHMOK8288-24-74 16:58:003.12 [place] TOTR0660-93-77 16:06:00Surgical Pathology Report Case: [id number] Authorizing Provider: Aaron Mccullough Collected: 02/22/2017 1637 Ordering Location: [address] Received: 02/24/2017 0912 Service Pathologist: Lela Saravia MD Specimen: Biopsy, Esophagus LOWER ESOPHAGUS, ENDOSCOPIC BIOPSY - SQUAMOUS MUCOSA WITH MILD EDEMA - NO FEATURES OF REFLUX OR EOSINOPHILIC ESOPHAGITIS SEEN - NO COLUMNAR MUCOSA PRESENT - NO DYSPLASIA OR MALIGNANCY SEENThe case was presented at the departmental consensus conference on 02/26/17 Signing Pathologist Direct Phone Line: [phone] signed by Lela Saravia MD on 02/26/2017 at 4:06 [id number] biopsyReceived in formalin labeled "biopsy, esophagus" are four fragments measuring 0.9 x 0.8 x 0.1 cm in aggregate. Entirely submitted A1. DB/plPERFORMEDCOMPREHENSIVE METABOLIC [id number] 06:01:00* Test Item Value Reference Range Interpretation [...] DIALYSIS PATIENTS. CBC W/PLT COUNT & AUTO CSZLCVPWUWVG4967-55-25 05:28:00* Test Item Value Reference Range Interpretation [...] (test code = 2801) 0 % 0-1 BAGTTGSYRP6353-48-16 06:49:00* Test Item Value Reference Range Interpretation Comments PHOSPHORUS (BEAKER) (test code = 604) 4.0 mg/dL 2.3-4.7 MOLIDHXQJ3910-62-17 06:49:00* Test Item Value Reference Range Interpretation Comments MAGNESIUM (BEAKER) (test code = 627) 1.9 mg/dL 1.6-2.6 COMPREHENSIVE METABOLIC JHHSQ1255-94-19 06:49:00* Test Item Value Reference Range Interpretation [...] DIALYSIS PATIENTS. CBC W/PLT COUNT & AUTO GUJVVDRKFJBC6796-22-55 05:59:00* Test Item Value Reference Range Interpretation [...] (test code = 2801) 0 % 0-1 PT/KZJN9756-73-03 03:59:00* Test Item Value Reference Range Interpretation [...] 2.5-3.5 for pat ients with mechanical heart valves.CDTASV2085-54-52 03:54:00* Test Item Value Reference Range Interpretation Comments LIPASE (BEAKER) (test code = 749) 38 U/L 8-78 SHEKABI2395-54-25 03:54:00* Test Item Value Reference Range Interpretation Comments AMYLASE (BEAKER) (test code = 349) 68 U/L 25-125 COMPREHENSIVE METABOLIC [id number] 03:54:00* Test Item Value Reference Range Interpretation [...] NOT APPLICABLE FOR DIALYSIS PATIENTS. HEPATIC FUNCTION [id number] 03:54:00* Test Item Value Reference Range Interpretation [...] U/L 6-55 CBC W/PLT COUNT & AUTO VXDNGORQBBFV1579-50-68 03:41:00* Test Item Value Reference Range Interpretation [...] = 2801) 0 % 0-1 HEMOGLOBIN AND NXWZNSQPQK1299-21-34 11:59:00* Test Item Value Reference Range Interpretation Comments HEMOGLOBIN (BEAKER) (test code = 410) 10.0 GM/DL 13.7-17.5 L HEMATOCRIT (BEAKER) (test code = 411) 31.5 % 40.1-51.0 L TISSUE [id number] 11:34:00Surgical Pathology Report Case: [id number] Authorizing Provider: Leeanna Ma MD Collected: 02/03/2017 1350 Ordering Location: [address] Received: 02/03/2017 5530 Pathologist: Lela Saravia MD Specimens: A) - Antrum, bx r/o h pylori evaluate atrophic gastritis B) - Gastric, BX R/O H PYLORI EVALUATE ATROPHIC GASTRITIS This addendum is issued to report the result of immunohistochemical stain for Helicobacter pylori on specimen A: - NegativeCPT code: 00634Mftgkbbo electronically signed by Lela Saravia MD on [...] STAIN - NEGATIVE FOR DYSPLASIA OR MALIGNANCY 88726 X 2; 51396 X 2Melena, rule out H. Pylori, rule [...] the diagnostic report above:WARTHIN-STARRY X 2HEMOGLOBIN AND SSEGAAQBXG0720-95-98 04:18:00* Test Item Value Reference Range Interpretation [...] 0 /100 WBC 0 -0 HEMOGLOBIN AND GDFTFBBNEL3873-28-46 21:26:00* Test Item Value Reference Range Interpretation Comments HEMOGLOBIN (BEAKER) (test code = 410) 7.7 GM/DL 13.7-17.5 L HEMATOCRIT (BEAKER) (test code = 411) 24.6 % 40.1-51.0 L XGXAQSYE7237-12-43 19:21:00* Test Item Value Reference Range Interpretation [...] 8 % 20-5 5 L HEMOGLOBIN AND FXJJPGNRBU5813-92-54 18:44:00* Test Item Value Reference Range Interpretation Comments HEMOGLOBIN (BEAKER) (test code = 410) 8.1 GM/DL 13.7-17.5 L HEMATOCRIT (BEAKER) (test code = 411) 25.3 % 40.1-51.0 L HEMOGLOBIN AND KUJSAOYZKM4410-51-63 10:09:00* Test Item Value Reference Range Interpretation Comments HEMOGLOBIN (BEAKER) (test code = 410) 8.3 GM/DL 13.7-17.5 L HEMATOCRIT (BEAKER) (test code = 411) 27.0 % 40.1-51.0 L BASIC METABOLIC [id number] 04:32:00* Test Item Value Reference Range Interpretation [...] GFR IS NOT APPLICABLE FOR DIALYSIS PATIENTS. [id number] 04:30:00* Test Item Value Reference Range Interpretation Comments PHOSPHORUS (BEAKER) (test code = 604) 2.8 mg/dL 2.3-4.7 [id number] 04:30:00* Test Item Value Reference Range Interpretation Comments MAGNESIUM (BEAKER) (test code = 627) 1.9 mg/dL 1.6-2.6 [id number] 04:20:00* Test Item Value Reference Range Interpretation [...] for pat ients with mechanical heart valves.PROTHROMBIN TIME/[id number] 04:19:00* Test Item Value Reference Range Interpretation [...] 0 /100 WBC 0 -0 HEMOGLOBIN AND [id number] 04:09:00* Test Item Value Reference Range Interpretation Comments HEMOGLOBIN (BEAKER) (test code = 410) 8.0 GM/DL 13.7-17.5 L HEMATOCRIT (BEAKER) (test code = 411) 25.2 % 40.1-51.0 L HEMOGLOBIN AND [id number] 20:58:00* Test Item Value Reference Range Interpretation Comments HEMOGLOBIN (BEAKER) (test code = 410) 8.0 GM/DL 13.7-17.5 L HEMATOCRIT (BEAKER) (test code = 411) 25.6 % 40.1-51.0 L HEMOGLOBIN AND [id number] 12:21:00* Test Item Value Reference Range Interpretation Comments HEMOGLOBIN (BEAKER) (test code = 410) 8.7 GM/DL 13.7-17.5 L HEMATOCRIT (BEAKER) (test code = 411) 27.6 % 40.1-51.0 L HEMOGLOBIN AND [id number] 05:58:00* Test Item Value Reference Range Interpretation Comments HEMOGLOBIN (BEAKER) (test code = 410) 8.3 GM/DL 13.7-17.5 L HEMATOCRIT (BEAKER) (test code = 411) 26.3 % 40.1-51.0 L [id number] 05:55:00* Test Item Value Reference Range Interpretation Comments PHOSPHORUS (BEAKER) (test code = 604) 2.8 mg/dL 2.3-4.7 [id number] 05:55:00* Test Item Value Reference Range Interpretation Comments MAGNESIUM (BEAKER) (test code = 627) 2.0 mg/dL 1.6-2.6 BASIC METABOLIC [id number] 05:55:00* Test Item Value Reference Range Interpretation [...] GFR IS NOT APPLICABLE FOR DIALYSIS PATIENTS. PT/[id number] 05:50:00* Test Item Value Reference Range Interpretation [...] pat ients with mechanical heart valves.HEMOGLOBIN AND [id number] 00:18:00 * Test Item Value Reference Range Interpretation Comments HEMOGLOBIN (BEAKER) (test code = 410) 8.2 GM/DL 13.7-17.5 L HEMATOCRIT (BEAKER) (test code = 411) 26.0 % 40.1-51.0 L HEMOGLOBIN AND [id number] 18:59:00* Test Item Value Reference Range Interpretation Comments HEMOGLOBIN (BEAKER) (test code = 410) 8.9 GM/DL 13.7-17.5 L HEMATOCRIT (BEAKER) (test code = 411) 28.1 % 40.1-51.0 L HEMOGLOBIN AND [id number] 13:15:00* Test Item Value Reference Range Interpretation [...] = 413) 0 /100 WBC 0 -0 [id number] 06:41:00* Test Item Value Reference Range Interpretation Comments PHOSPHORUS (BEAKER) (test code = 604) 2.9 mg/dL 2.3-4.7 [id number] 06:41:00* Test Item Value Reference Range Interpretation Comments MAGNESIUM (BEAKER) (test code = 627) 2.3 mg/dL 1.6-2.6 BASIC METABOLIC [id number] 06:41:00* Test Item Value Reference Range Interpretation [...] NOT APPLICABLE FOR DIALYSIS PATIENTS. HEMOGLOBIN AND [id number] 06:09:00* Test Item Value Reference Range Interpretation Comments HEMOGLOBIN (BEAKER) (test code = 410) 8.1 GM/DL 13.7-17.5 L HEMATOCRIT (BEAKER) (test code = 411) 25.3 % 40.1-51.0 L PROTHROMBIN [id number] 06:07:00* Test Item Value Reference Range Interpretation Comments PROTIME (BEAKER) (test code = 759) 13.9 seconds 11.7-14.7 INR (BEAKER) (test code = 370) 1.1 <=5.9 RECOMMENDED COUMADIN/WARFARIN INR THERAPY RANGESSTANDARD DOSE: 2.0 - 3.0 Inclu prabhakar: PROPHYLAXIS for venous thrombosis, systemic embolization; TREATMENT for marian ous thrombosis and/or pulmonary embolus.HIGH RISK: Target INR is 2.5-3.5 for pat ients with mechanical heart valves.PT/[id number] 06:07:00* Test Item Value Reference Range Interpretation [...] 2.5-3.5 for pat ients with mechanical heart valves.[id number] 00:56:00* Test Item Value Reference Range Interpretation Comments PARTIAL THROMBOPLASTIN TIME (BEAKER) (test code = 760) 28.2 seconds 22.5-36.0 PROTHROMBIN TIME/[id number] 00:55:00* Test Item Value Reference Range Interpretation Comments PROTIME (BEAKER) (test code = 759) 14.3 seconds 11.7-14.7 INR (BEAKER) (test code = 370) 1.1 <=5.9 RECOMMENDED COUMADIN/WARFARIN INR THERAPY RANGESSTANDARD DOSE: 2.0 - 3.0 Inclu prabhakar: PROPHYLAXIS for venous thrombosis, systemic embolization; TREATMENT for marian ous thrombosis and/or pulmonary embolus.HIGH RISK: Target INR is 2.5-3.5 for pat ients with mechanical heart valves.[id number] 00:54:00* Test Item Value Reference Range Interpretation Comments PHOSPHORUS (BEAKER) (test code = 604) 3.6 mg/dL 2.3-4.7 [id number] 00:54:00* Test Item Value Reference Range Interpretation Comments MAGNESIUM (BEAKER) (test code = 627) 2.3 mg/dL 1.6-2.6 BASIC METABOLIC [id number] 00:54:00* Test Item Value Reference Range Interpretation [...] NOT APPLICABLE FOR DIALYSIS PATIENTS. HEMOGLOBIN AND [id number] 00:34:00* Test Item Value Reference Range Interpretation [...] 0 -0 CBC W/PLT COUNT & AUTO [id number] 00:34:00* Test Item Value Reference Range Interpretation [...] 0 % 0-1 FOREARM RIGHT 2 VIEW [place] [address] Patient Name: TERESA WARD MR #: [id number] : 1955 Age/Sex: 61/M Req #: [id number] Adm Physician: Ordered by: BALDO MONDRAGON MD Report #: [id number] Location: ER Room/Bed: Procedure: [id number] DX/FOREARM RIGHT 2 VIEW Exam Da te: [...] by: DR. Kendall Lundberg MD on 04/25/20 17 7:30 PM Dictated By: KENDALL LUNDBERG MD 29 Transcribed By: CADEN on 04/25/171929 COMPENSATION COORDINATOR Y TO: BALDO MONDRAGON MD LOWER LEG RIGHT [place] [address] Patient Name: TERESA WARD MR #: [id number] : 1955 Age/Sex: 61/M Req #: [id number] Adm Physician: Ordered by: BALDO MONDRAGON MD Report #: [id number] Location: ER Room/Bed: Procedure: [id number] DX/LOWER LEG RIGHT Exam Date: Exam Time: [...]
[2019-12-15] MEDS ORDERED: ACETAMINOPHEN 325 MG TAB PO ONE (13:30)
[2019-12-15] MEDS ORDERED: SODIUM CHLORIDE 0.9% 500ML 500 ML IV ONE (13:45)
[2019-12-15 13:55] LABS: BASOPHILS % 0.4 % (0.0-1.0); EOSINOPHILS % 0.1 % (0.0-6.0); HEMATOCRIT 37.3 % (38.2-49.6); LYMPHOCYTES # (AUTO) 0.6 (1.0-3.2); LYMPHOCYTES % 8.2 % (18.0-39.1); MEAN CORPUSCULAR HEMOGLOBIN 30.8 pg (28-32); MEAN CORPUSCULAR HGB CONC 32.2 g/dL (31-35); MEAN CORPUSCULAR VOLUME 95.9 fL (81-99); MONOCYTES # (AUTO) 0.5 (0.2-0.8); MONOCYTES % 6.1 % (4.4-11.3); NEUTROPHILS # (AUTO) 6.4 (2.1-6.9); NEUTROPHILS % 84.7 % (38.7-80.0); PLATELET COUNT 129 x10e3/uL (140-360); RED BLOOD COUNT 3.89 x10e6/uL (4.3-5.7); RED CELL DISTRIBUTION WIDTH 15.2 % (11.7-14.4)
[2019-12-15 14:06] LABS: INR 1.17; PROTHROMBIN TIME 15.7 seconds (11.9-14.5)
[2019-12-15 14:07] LABS: PARTIAL THROMBOPLASTIN TIME 32.1 seconds (23.8-35.5)
[2019-12-15 14:15] LABS: ALBUMIN 3.3 g/dL (3.5-5.0); ALBUMIN/GLOBULIN RATIO 0.8 (0.8-2.0); ANION GAP 14.9 mmol/L (8-16); CALCIUM 8.6 mg/dL (8.4-10.2); CREATININE, SERUM 1.38 mg/dL (0.72-1.25); MAGNESIUM 1.8 MG/DL (1.3-2.1); POTASSIUM 3.9 mmol/L (3.5-5.1)
[2019-12-15 14:16] LABS: CLARITY,URINE SL CLOUDY (CLEAR); COLOR,URINE STRAW (YELLOW); KETONES,URINE NEGATIVE (NEGATIVE); LEUKOCYTE ESTERASE ,URINE NEGATIVE (NEGATIVE); NITRITE,URINE NEGATIVE (NEGATIVE); PROTEIN,URINE DIPSTICK 2+ (NEGATIVE); URINE UROBILINOGEN 2 mg/dL (0.2 - 1)
[2019-12-15 14:17] LABS: BILIRUBIN,URINE NEGATIVE (NEGATIVE)
[2019-12-15 14:22] LABS: INFLUENZAE A&B ANTIGEN (RAPID) NEGATIVE (NEGATIVE)
[2019-12-15 14:22] LABS: CREATINE KINASE MB 0.8 ng/mL (0-5.0)
[2019-12-15 14:23] LABS: B-TYPE NATRIURETIC PEPTIDE2 185.5 pg/mL (0-100)
[2019-12-15 14:27] LABS: AMORPHOUS SEDIMENT,URINE RARE (FEW); BACTERIA,URINE FEW /HPF; EPITHELIAL CELLS,URINE FEW /LPF; RBC,URINE 0-5 /HPF (0-5)
[2019-12-15 14:38] LABS: STREPTOCOCCUS GRP A ANTIGEN NEGATIVE (NEGATIVE)
--- NOTE | 2019-12-15 15:43 | Diagnostic Imaging Report ---
EXAMINATION: CHEST SINGLE (PORTABLE) INDICATION: Fever COMPARISON: Chest radiograph 12/05/2019 FINDINGS: LINES/TUBES:Left chest pacer. LUNGS:The right lung is well-inflated. Left lung volume is relatively low. Unchanged left lower lung opacities. PLEURA:No pleural effusion. No pneumothorax. MEDIASTINUM:The cardiomediastinal silhouette appears unchanged in size and shape. Atherosclerotic calcifications of the thoracic aorta. BONES/SOFT TISSUES:No acute osseous injury. Old left clavicle fracture. ABDOMEN:No free air under the diaphragm. IMPRESSION: Unchanged left basilar opacities, more likely subsegmental atelectasis than superimposed aspiration or pneumonia. Signed by: Lucia Rider MD on 12/15/2019 3:39 PM
[2019-12-15] MEDS: CEFTRIAXONE SOD 1 GM/NS 50 ML 50 ML IV SCH (16:04)
[2019-12-15] MEDS ORDERED: ONDANSETRON HCL INJ 2MG/ML 2ML 2 MG/ML VIAL IV PRN (16:15)
--- NOTE | 2019-12-15 16:27 | Emergency Department Note ---
History of Present Illnes History of Present Illness Chief Complaint: Flu Like Symptoms History of Present Illness This is a 64 year old male C/O FEELING FEVERISH X 3 DAYS DID NOT CHECK TEMP BUT FELT LIKE HE HAD FEVER PT HAS TEMP 102.8 IN TRIAGE DENIES MUSCLE ACHES C/O CHILLS AND NAUSEA. Historian: Patient Arrival Mode: Car Bike Mechanic Required: No Onset (how long ago): day(s) (3) Radiation: Reports non-radiation Severity: moderate Onset quality: gradual Timing of current episode: intermittent Progression: waxing and waning Chronicity: new Context: Denies recent illness Relieving factors: none Exacerbating factors: none Associated symptoms: Reports denies other symptoms Treatments prior to arrival: none Past Medical/Family History Physician Review I have reviewed the patient's past medical and family history. Any updates have been documented here. Past Medical History Recent Fever: Yes Clinical Suspicion of Infectio: Yes New/Unexplained Change in Ment: No Past Medical History: Hypertension, CHF, CAD Other Medical History: previous smoker, gout, AAA, right CAD stent, BPH,pacemaker Past Surgical History: Pacer/AICD, Back Surgery Other Surgery: MULTI AAA REPAIR BACK SURGERY Social History Smoking Cessation: Never Smoker Counseling Performed: No Alcohol Use: None Any Illegal Drug Use: No TB Exposure/Symptoms: No Physically hurt or threatened: No Other Last Tetanus: UTD Any Pre-Existing Lines (PICC,: No Is patient up to date on immun: Yes Last Flu: NO Last Pneumovax: NO Review of Systems Review of Systems Constitutional: Reports fever, Reports malaise EENTM: Reports no symptoms Cardiovascular: Reports no symptoms Respiratory: Reports no symptoms Gastrointestinal: Reports no symptoms Genitourinary: Reports no symptoms Musculoskeletal: Reports no symptoms Integumentary: Reports no symptoms Neurological: Reports no symptoms Psychological: Reports no symptoms Endocrine: Reports no symptoms Hematological/Lymphatic: Reports no symptoms Review of other systems All other systems reviewed and negative. Physical Exam Related Data Allergies: Coded Allergies: nifedipine (Verified Allergy, Unknown, 02/01/17) Triage Vital Signs Vital Signs Date Time Temp Pulse Resp B/P (MAP) Pulse Ox O2 Delivery O2 Flow Rate FiO2 12/15/19 13:15 102.8 114 18 162/69 95 Vital signs reviewed: Yes Physical Exam CONSTITUTIONAL Constitutional: Reports well-developed, Reports well-nourished HENT HENT: Reports normocephalic, Reports atraumatic, Reports oropharynx clear/moist, Reports nose normal HENT L/R: Reports left ext ear normal, Reports right ext ear normal EYES Eyes: Reports PERRL, Reports conjunctivae normal NECK Neck: Reports ROM normal PULMONARY Pulmonary: Reports effort normal, Reports breath sounds normal CARDIOVASCULAR Cardiovascular: Reports regular rhythm, Reports heart sounds normal, Reports capillary refill normal, Reports tachycardia (115) GASTROINTESTINAL Abdominal: Reports soft, Reports nontender, Reports bowel sounds normal GENITOURINARY Genitourinary: Reports exam deferred SKIN Skin: Reports warm, Reports dry MUSCULOSKELETAL Musculoskeletal: Reports ROM normal, Reports other (LEFT UPPER CHEST WALL WITH RECENT AICD/PACER - SITE LOOK C&D WITHOUT EVID OF INFECTION AND NON-TENDER) NEUROLOGICAL Neurological: Reports alert, Reports oriented x 3, Reports no gross motor or sensory deficits PSYCHOLOGICAL Psychological: Reports mood/affect normal, Reports judgement normal Results Laboratory Result Diagram: 12/15/19 1320 12/15/19 1320 Laboratory Laboratory Tests Test 12/15/19 13:35 12/15/19 13:29 12/15/19 13:20 Lactic Acid Level 1.6 mmol/L (0.5-2.0) B-Type Natriuretic Peptide 185.5 pg/mL (0-100) Influenza Virus Types A,B Antigen Negative (NEGATIVE) Group A Streptococcus Screen Negative (NEGATIVE) White Blood Count 7.54 x10e3/uL (4.8-10.8) Red Blood Count 3.89 x10e6/uL (4.3-5.7) Hemoglobin 12.0 g/dL (14.0-18.0) Hematocrit 37.3 % (38.2-49.6) Mean Corpuscular Volume 95.9 fL (81-99) Mean Corpuscular Hemoglobin 30.8 pg (28-32) Mean Corpuscular Hemoglobin Concent 32.2 g/dL (31-35) Red Cell Distribution Width 15.2 % (11.7-14.4) Platelet Count 129 x10e3/uL (140-360) Neutrophils (%) (Auto) 84.7 % (38.7-80.0) Lymphocytes (%) (Auto) 8.2 % (18.0-39.1) Monocytes (%) (Auto) 6.1 % (4.4-11.3) Eosinophils (%) (Auto) 0.1 % (0.0-6.0) Basophils (%) (Auto) 0.4 % (0.0-1.0) Neutrophils # (Auto) 6.4 (2.1-6.9) Lymphocytes # (Auto) 0.6 (1.0-3.2) Monocytes # (Auto) 0.5 (0.2-0.8) Eosinophils # (Auto) 0.0 (0.0-0.4) Basophils # (Auto) 0.0 (0.0-0.1) Absolute Immature Granulocyte (auto 0.04 x10e3/uL (0-0.1) Prothrombin Time 15.7 seconds (11.9-14.5) Prothromb Time International Ratio 1.17 Activated Partial Thromboplast Time 32.1 seconds (23.8-35.5) Urine Color Straw (YELLOW) Urine Clarity Sl cloudy (CLEAR) Urine pH 6 (5 - 7) Urine Specific [place] 1.025 (1.010-1.025) Urine Protein 2+ (NEGATIVE) Urine Glucose (UA) Negative (NEGATIVE) Urine Ketones Negative (NEGATIVE) Urine Blood Small (NEGATIVE) Urine Nitrite Negative (NEGATIVE) Urine Bilirubin Negative (NEGATIVE) Urine Urobilinogen 2 mg/dL (0.2 - 1) Urine Leukocyte Esterase Negative (NEGATIVE) Urine RBC 0-5 /HPF (0-5) Urine WBC None /HPF (0-5) Urine Epithelial Cells Few /LPF (NONE) Urine Amorphous Sediment Rare (FEW) Urine Bacteria Few /HPF (NONE) Sodium Level 138 mmol/L (136-145) Potassium Level 3.9 mmol/L (3.5-5.1) Chloride Level 103 mmol/L (98-107) Carbon Dioxide Level 24 mmol/L (22-29) Anion Gap 14.9 mmol/L (8-16) Blood Urea Nitrogen 22 mg/dL (7-26) Creatinine 1.38 mg/dL (0.72-1.25) Estimat Glomerular Filtration Rate 52 ML/MIN (60-) BUN/Creatinine Ratio 16 (6-25) Glucose Level 111 mg/dL (74-118) Calcium Level 8.6 mg/dL (8.4-10.2) Magnesium Level 1.8 MG/DL (1.3-2.1) Total Bilirubin 0.9 mg/dL (0.2-1.2) Aspartate Amino Transf (AST/SGOT) 39 IU/L (5-34) Alanine Aminotransferase (ALT/SGPT) 27 IU/L (0-55) Alkaline Phosphatase 93 IU/L (40-150) Creatine Kinase 120 IU/L (30-200) Creatine Kinase MB 0.80 ng/mL (0-5.0) Troponin I 0.094 ng/mL (0-0.300) Total Protein 7.6 g/dL (6.5-8.1) Albumin 3.3 g/dL (3.5-5.0) Globulin 4.3 g/dL (2.3-3.5) Albumin/Globulin Ratio 0.8 (0.8-2.0) Lab results reviewed: Yes Imaging Imaging results reviewed: Yes Impressions Procedure: [id number] DX/CHEST SINGLE (PORTABLE) Exam Date: 12/15/19 Exam Time: 1430 REPORT STATUS: Signed EXAMINATION: CHEST SINGLE (PORTABLE) INDICATION: Fever COMPARISON: Chest radiograph 12/05/2019 FINDINGS: LINES/TUBES:Left chest pacer. LUNGS:The right lung is well-inflated. Left lung volume is relatively low. Unchanged left lower lung opacities. PLEURA:No pleural effusion. No pneumothorax. MEDIASTINUM:The cardiomediastinal silhouette appears unchanged in size and shape. Atherosclerotic calcifications of the thoracic aorta. BONES/SOFT TISSUES:No acute osseous injury. Old left clavicle fracture. ABDOMEN:No free air under the diaphragm. IMPRESSION: Unchanged left basilar opacities, more likely subsegmental atelectasis than superimposed aspiration or pneumonia. Signed by: Lucia Rider MD on 12/15/2019 3:39 PM Procedures 12 Lead ECG Interpretation ECG Interpretation : ECG: ECG 1 Bike Mechanic: Interpreted by ED physician Date: Dec 15, 2019 Time: 13:21 Rhythm: paced (CONTINUOUS VENTRICULAR PACED) Rate: tachycardia (115) QRS axis: left Clinical Impression: abnormal ECG Assessment & Plan Medical Decision Making MDM FEVER OF UNKNOWN SOURCE - CHECK CBC, CHEM'S, UA, CXR, ECG, PANCX'S, STREP/FLU/COVID SWABS, LACTIC ACID - R/O LEUKOCYTOSIS, UTI, INFECTED PACEMAKER, PNEUMONIA, COVID Assessment & Plan Final Impression: (1) Fever Depart Disposition: ADMITTED Last Vital Signs Date Time Temp Pulse Resp B/P (MAP) Pulse Ox O2 Delivery O2 Flow Rate FiO2 12/15/19 15:27 85 16 148/52 96 12/15/19 13:15 102.8 Home Meds Active Scripts Apixaban (Eliquis) 5 Mg Tablet, 5 MG PO BID for 30 Days RESUME 12/07/19 Prov:[facility] 12/06/19 Amiodarone Hcl (AMIODARONE HCL) 200 Mg Tablet, 200 MG PO BID for 30 Days Prov:[facility] 12/06/19 Reported Medications Tramadol Hcl (ULTRAM) 50 Mg Tablet, 50 MG PO Q8H for PAIN, TAB 12/04/19 Minocycline Hcl (MINOCYCLINE HCL) 50 Mg Capsule, 100 MG PO Q12H, #60 TAB 12/04/19 Aspirin (ASPIR 81) 81 Mg Tablet.dr, 81 MG PO UD EVERY OTHER DAY 11/01/19 Allopurinol (ALLOPURINOL) 300 Mg Tablet, 300 MG PO DAILY, #30 TAB 11/01/19 Atorvastatin Calcium (LIPITOR) 20 Mg Tablet, 40 MG PO DAILY, TAB 11/01/19 Tamsulosin Hcl* (FLOMAX*) 0.4 Mg Cap, 0.4 MG PO DAILY, #30 CAP 11/01/19 Medications in the ED Acetaminophen 975 mg ONCE ONCE PO Last administered on 12/15/19at 13:44; Admin Dose 975 MG; Start 12/15/19 at 13:30; Stop 12/15/19 at 13:31; Status DC Sodium Chloride 500 ml @ 0 mls/hr Q0M ONCE IV Last administered on 12/15/19at 13:45; Admin Dose 500 MLS/HR; Start 12/15/19 at 13:45; Stop 12/15/19 at 13:46; Status DC Ceftriaxone Sodium 50 ml @ 100 mls/hr Q12HR@0300,1500 IV ; Start 12/15/19 at 15:00; Stop 12/22/19 at 14:59 Azithromycin 250 ml @ 200 mls/hr Q24H IV ; Start 12/15/19 at 16:00; Stop 12/22/19 at 15:59 FRANK DOMINGUEZ MD Dec 15, 2019 16:27
--- OUTSIDE RECORDS SUMMARY | 2019-12-15 16:39 | XMS REPORT | Clinical Summary ---
Author Author [facility] ict Organization [facility] ict Address Unknown Phone Unavailable Care Team Providers Care Pattern Chart Writer Name Role Phone Sri Patton RN 2 [...] Added automatically from request for antonieta stinson [id number] Left eye pain Encounters Care Team Description [...] Effective Phone Address Plan / Dates Group [employer] xxxxxxxx 2018-P [address] [facility] [address] [place] [address] LIENS PENDING xxxxxxxxx 2009- [phone] GENERIC [place] [address] Pascual lAbert Third Self 1955 [address] (Home) [place] [address] Liability
--- OUTSIDE RECORDS SUMMARY | 2019-12-15 16:39 | XMS REPORT | Clinical Summary ---
Author Author MARY [facility] Address Unknown Phone Unavailable Care Team Providers Care Revolving Inventory Clerk Name Role Phone Sharpless PCP Allergies Comments [...] Advance Directives For more information, please contact: [address] [address] Date Inactivated Comments Code Status Date Activated 02/23/2017 3:59 PM Full Code 02/21/2017 5:39 AM This code status was determined by: Patient 02/05/2017 2:49 PM Full Code 02/01/2017 10:20 PM This code status was determined by: Patient
--- OUTSIDE RECORDS SUMMARY | 2019-12-15 16:40 | XMS REPORT | Continuity of Care Document ---
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 Eosinophils # 0.2 0.0 - 0.5 09/02/2017 [facility] Lymphocytes 25.0 20.0 - 40.0 09/02/2017 [facility] HEMATOLOGY Monocytes 7.5 2.0 - 12.0 09/02/2017 [facility] HEMATOLOGY Segs 62.7 45.0 - 75.0 09/02/2017 [facility] MCHC 32.9 32.0 - 36.0 09/02/2017 [facility] MCH 31.3 27.0 - 31.0 09/02/2017 [facility] MCV 94.9 80.0 - 94.0 09/02/2017 [facility] Hct 39.6 42.0 - 54.0 09/02/2017 [facility] RDW 14.7 11.5 - 14.5 09/02/2017 [facility] HEMATOLOGY MPV 7.1 7.4 - 10.4 09/02/2017 [facility] HEMATOLOGY Platelet 172 133 - 450 09/02/2017 [facility] HEMATOLOGY Hgb 13.0 14.0 - 18.0 09/02/2017 [facility] HEMATOLOGY RBC 4.17 4.70 - 6.10 09/02/2017 [facility] HEMATOLOGY WBC 5.4 3.7 - 10.4 09/02/2017 [facility] HEMATOLOGY INR 1.05 0.85 - 1.17 09/02/2017 [facility] HEMATOLOGY PT 13.7 12.0 - 14.7 09/02/2017 [facility] URINE AND STOOL UA Bacteria Occasional /HPF None Seen /HPF 09/02/[address] [facility] [address] URINE AND STOOL UA RBC >100 /HPF 0 - 2 09/02/2017 [facility] URINE AND STOOL UA WBC 3-5 /HPF 0 - 5 09/02/2017 [facility] URINE AND STOOL UA Sq Epi None Seen (09/02/17 6:06 AM) Few 09/02/2017 [facility] URINE AND STOOL Micro? Performed (09/02/17 6:06 AM) 09/02/2017 [facility] URINE AND STOOL UA Leuk Est Moderate *ABN* (09/02/17 6:06 AM) Negative 09/02/2017 [facility] URINE AND STOOL UA Ketones 15 09/02/2017 [facility] URINE AND STOOL UA pH 7.0 5.0 - 8.0 09/02/2017 [facility] URINE AND STOOL UA Bili Negative (09/02/17 6:06 AM) Negative 09/02/2017 [facility] URINE AND STOOL UA Blood Large *ABN* (09/02/17 6:06 AM) Negative 09/02/2017 [facility] URINE AND STOOL UA Turbidity Marked *ABN* (09/02/17 6:06 AM) Clear 09/02/2017 [facility] URINE AND STOOL UA Spec Grav 1.010 <=1.030 09/02/2017 [facility] URINE AND STOOL UA Glucose Negative (09/02/17 6:06 AM) Negative 09/02/2017 [facility] URINE AND STOOL UA Protein >=300 mg/dL Negative mg/dL 09/02/[address] [facility] [address] URINE AND STOOL UA Urobilinogen 4.0 0.1 - 1.0 09/02/2017 [facility] URINE AND STOOL UA Nitrite Positive *ABN* (09/02/17 6:06 AM) Negative 09/02/2017 [facility] URINE AND STOOL UA Color Red *ABN* (09/02/17 6:06 AM) Yellow 09/02/2017 [facility] CARDIAC ENZYMES Troponin-I <0.02 0.00 - 0.40 08/15/2017 [facility] CARDIAC ENZYMES CK MB Index 1.5 0.0 - 2.5 08/15/2017 [facility] CARDIAC ENZYMES CK MB 1.9 0.5 - 3.6 08/15/2017 [facility] CARDIAC ENZYMES Total CK 129 12 - 191 08/15/2017 [facility] CHEM PANEL eGFR 77 08/15/2017 Result [...] should be multiplied by the estimated BMI. [facility] CHEM PANEL Calcium Lvl 7.9 8.5 - 10.5 08/15/2017 [facility] CHEM PANEL CO2 28 24 - 32 08/15/2017 [facility] CHEM PANEL Albumin Lvl 3.2 3.5 - 5.0 08/15/2017 [facility] CHEM PANEL Total Protein 8.0 6.4 - 8.4 08/15/2017 [facility] CHEM PANEL Chloride Lvl 106 95 - 109 08/15/2017 [facility] CHEM PANEL Alk Phos 103 39 - 136 08/15/2017 [facility] CHEM PANEL AST 25 0 - 37 08/15/2017 [facility] CHEM PANEL ALT 21 0 - 65 08/15/2017 [facility] CHEM PANEL B/C Ratio 13 6 - 25 08/15/2017 [facility] CHEM PANEL AGAP 12.0 10.0 - 20.0 08/15/2017 [facility] CHEM PANEL Bili Total 0.5 0.2 - 1.3 08/15/2017 [facility] CHEM PANEL A/G Ratio 0.7 0.7 - 1.6 08/15/2017 [facility] CHEM PANEL Globulin 4.8 2.7 - 4.2 08/15/2017 [facility] CHEM PANEL Creatinine Lvl 1.03 0.50 - 1.40 08/15/2017 [facility] CHEM PANEL BUN 13 7 - 22 08/15/2017 [facility] CHEM PANEL Potassium Lvl 4.0 3.5 - 5.1 08/15/2017 [facility] CHEM PANEL Sodium Lvl 142 135 - 145 08/15/2017 [facility] CHEM PANEL Glucose Lvl 78 70 - 99 08/15/2017 [facility] HEMATOLOGY Basophils 0.6 0.0 - 1.0 08/15/2017 [facility] HEMATOLOGY Eosinophils 1.7 0.0 - 4.0 08/15/2017 [facility] HEMATOLOGY Segs-Bands # 4.4 1.5 - 8.1 08/15/2017 [facility] HEMATOLOGY Monocytes 10.2 2.0 - 12.0 08/15/2017 [facility] HEMATOLOGY Lymphocytes # 1.6 1.0 - 5.5 08/15/2017 [facility] HEMATOLOGY Eosinophils # 0.1 0.0 - 0.5 08/15/2017 [facility] HEMATOLOGY Monocytes # 0.7 0.0 - 0.8 08/15/2017 [facility] HEMATOLOGY Lymphocytes 23.6 20.0 - 40.0 08/15/2017 [facility] HEMATOLOGY Segs 63.9 45.0 - 75.0 08/15/2017 [facility] HEMATOLOGY MCH 31.6 27.0 - 31.0 08/15/2017 [facility] HEMATOLOGY MCV 95.7 80.0 - 94.0 08/15/2017 [facility] MCHC 33.0 32.0 - 36.0 08/15/2017 [facility] HEMATOLOGY MPV 7.2 7.4 - 10.4 08/15/2017 [facility] HEMATOLOGY RDW 15.9 11.5 - 14.5 08/15/2017 [facility] HEMATOLOGY Platelet 138 133 - 450 08/15/2017 [facility] HEMATOLOGY Hgb 13.3 14.0 - 18.0 08/15/2017 [facility] HEMATOLOGY Hct 40.2 42.0 - 54.0 08/15/2017 [facility] HEMATOLOGY RBC 4.20 4.70 - 6.10 08/15/2017 [facility] HEMATOLOGY WBC 6.8 3.7 - 10.4 08/15/2017 [facility] URINE AND STOOL UA Urobilinogen <=1.0 mg/dL 0.1 - 1.0 08/15/2017 [facility] URINE AND STOOL UA Color Ltyellow 08/15/2017 [facility] URINE AND STOOL UA Sq Epi None Seen 08/15/2017 [facility] URINE AND STOOL UA RBC 3 0 - 2 08/15/2017 [facility] URINE AND STOOL UA Protein Negative mg/dL Negative mg/dL 08/15/2017 [facility] URINE AND STOOL UA Glucose Negative mg/dL Negative mg/dL 08/15/[address] [facility] [address] URINE AND STOOL UA WBC 1 0 - 5 08/15/2017 [facility] URINE AND STOOL UA Ketones Negative mg/dL Negative mg/dL 08/15/2017 [facility] URINE AND STOOL UA Bili Negative *NA* (08/15/17 4:59 PM) Negative 08/15/2017 [facility] URINE AND STOOL UA Leuk Est Negative (08/15/17 4:59 PM) Negative 08/15/2017 [facility] URINE AND STOOL UA Nitrite Negative (08/15/17 4:59 PM) Negative 08/15/2017 [facility] URINE AND STOOL UA Blood Small *ABN* (08/15/17 4:59 PM) Negative 08/15/2017 [facility] URINE AND STOOL UA pH 6.0 5.0 - 8.0 08/15/2017 [facility] URINE AND STOOL UA Spec Grav 1.009 <=1.030 08/15/2017 [facility] URINE AND STOOL UA Turbidity Clear (08/15/17 4:59 PM) Clear 08/15/2017 [facility] CHEM PANEL eGFR 91 06/12/2017 Result [...] should be multiplied by the estimated BMI. [facility] CHEM PANEL POC Creatinine 0.9 0.5 - 1.4 06/12/2017 [facility] ELECTROLYTES AGAP 10.9 10.0 - 20.0 04/30/2017 [facility] ELECTROLYTES eGFR 97 04/30/2017 Result Comment: [...] should be multiplied by the estimated BMI. [facility] ELECTROLYTES Calcium Lvl 8.1 8.5 - 10.5 04/30/2017 [facility] ELECTROLYTES CO2 27 24 - 32 04/30/2017 [facility] ELECTROLYTES Potassium Lvl 3.9 3.5 - 5.1 04/30/2017 [facility] ELECTROLYTES Sodium Lvl 141 135 - 145 04/30/2017 [facility] ELECTROLYTES Chloride Lvl 107 95 - 109 04/30/2017 [facility] ELECTROLYTES BUN 15 7 - 22 04/30/2017 [facility] ELECTROLYTES Creatinine Lvl 0.7 6 0.50 - 1.40 04/30/2017 [facility] ELECTROLYTES Glucose Lvl 84 70 - 99 04/30/2017 [facility] HEMATOLOGY MCHC 33.2 32.0 - 36.0 04/30/2017 [facility] HEMATOLOGY MCH 30.2 27.0 - 31.0 04/30/2017 [facility] HEMATOLOGY MCV 90.9 80.0 - 94.0 04/30/2017 [facility] HEMATOLOGY Hct 34.4 42.0 - 54.0 04/30/2017 [facility] HEMATOLOGY MPV 7.0 7.4 - 10.4 04/30/2017 [facility] HEMATOLOGY Platelet 164 133 - 450 04/30/2017 [facility] HEMATOLOGY RDW 15.7 11.5 - 14.5 04/30/2017 [facility] HEMATOLOGY Hgb 11.4 14.0 - 18.0 04/30/2017 [facility] HEMATOLOGY RBC 3.78 4.70 - 6.10 04/30/2017 [facility] HEMATOLOGY WBC 5.6 3.7 - 10.4 04/30/2017 [facility] HEMATOLOGY Monocytes # 0.5 0.0 - 0.8 04/30/2017 [facility] HEMATOLOGY Eosinophils # 0.2 0.0 - 0.5 04/30/2017 [facility] HEMATOLOGY Lymphocytes # 1.5 1.0 - 5.5 04/30/2017 [facility] HEMATOLOGY Monocytes 8.9 2.0 - 12.0 04/30/2017 [facility] Lymphocytes 26.3 20.0 - 40.0 04/30/2017 [facility] HEMATOLOGY Segs 59.6 45.0 - 75.0 04/30/2017 [facility] HEMATOLOGY Segs-Bands # 3.3 1.5 - 8.1 04/30/2017 [facility] Basophils 0.8 0.0 - 1.0 04/30/2017 [facility] HEMATOLOGY Eosinophils 4.4 0.0 - 4.0 04/30/2017 [facility] CHEM PANEL Creatinine Lvl 0.95 0.50 - 1.40 04/29/2017 [facility] CHEM PANEL BUN 15 7 - 22 04/29/2017 [facility] CHEM PANEL Glucose Lvl 96 70 - 99 04/29/2017 [facility] CHEM PANEL Calcium Lvl 8.7 8.5 - 10.5 04/29/2017 [facility] CHEM PANEL CO2 30 24 - 32 04/29/2017 [facility] CHEM PANEL Chloride Lvl 101 95 [...] should be multiplied by the estimated BMI. [facility] CHEM PANEL AGAP 10.7 10.0 - 20.0 04/29/2017 [facility] HEMATOLOGY Lymphocytes 25.1 20.0 - 40.0 04/29/2017 [facility] HEMATOLOGY Segs 64.2 45.0 - 75.0 04/29/2017 [facility] HEMATOLOGY Monocytes 7.0 2.0 - 12.0 04/29/2017 [facility] HEMATOLOGY Basophils 0.9 0.0 - 1.0 04/29/2017 [facility] HEMATOLOGY Segs-Bands # 3.9 1.5 - 8.1 04/29/2017 [facility] HEMATOLOGY Eosinophils 2.8 0.0 - 4.0 04/29/2017 [facility] HEMATOLOGY Lymphocytes # 1.5 1.0 - 5.5 04/29/2017 [facility] HEMATOLOGY Eosinophils # 0.2 0.0 - 0.5 04/29/2017 [facility] HEMATOLOGY Basophils # 0.1 0.0 - 0.2 04/29/2017 [facility] HEMATOLOGY Monocytes # 0.4 0.0 - 0.8 04/29/2017 [facility] HEMATOLOGY Platelet 190 133 - 450 04/29/2017 [facility] HEMATOLOGY RDW 15.7 11.5 - 14.5 04/29/2017 [facility] MPV 6.9 7.4 - 10.4 04/29/2017 [facility] MCHC 32.7 32.0 - 36.0 04/29/2017 [facility] HEMATOLOGY RBC 4.34 4.70 - 6.10 04/29/2017 [facility] WBC 6.0 3.7 - 10.4 04/29/2017 [facility] HEMATOLOGY Hct 39.6 42.0 - 54.0 04/29/2017 [facility] HEMATOLOGY MCV 91.3 80.0 - 94.0 04/29/2017 [facility] HEMATOLOGY MCH 29.8 27.0 - 31.0 04/29/2017 [facility] HEMATOLOGY Hgb 13.0 14.0 - 18.0 04/29/2017 [facility] LIPIDS VLDL 29 04/29/2017 [facility] LDL (Calculated) 96 <=99 mg/dL 04/29/2017 [facility] LIPIDS Trig 143 <=149 mg/dL 04/29/2017 [facility] LIPIDS Chol 184 <=199 mg/dL 04/29/2017 [facility] HDL 59 >=61 mg/dL 04/29/2017 [facility] CHD Risk 3.12 4.00 - 7.30 04/29/2017 [facility] Pathology Reports No Data Provided for This Section Diagnostic Reports Report Value Date Source Abdomen/Pelvis CTA Patient Bereket abdul: TERESA WARD : 1955; Age: 63 years y/o Male MR: [id number] * CT ANGIOGRAPHY OF THE ABDOMEN \\T\\ [...] lumbar spine from L2 through S1. SL: [id number] 10/02/2018 [facility] Tibia fibula series DX Exam: [...] Impression: Right nephrolithiasis. Right ureteral stent. 11/18/2017 [facility] Abdomen AP DX Clinical Indicat ion: [...] portion of the stent. BONILLA: [id number] 09/02/2017 [facility] Renal pyelogram retrograde DX Patient Name: TERESA WARD : 1955; Age: 61 years y/o Male MR: [id number] RETROGRADE PYELOGRAPHY, RIGHT HISTORY: Calculus at right [...] bladder. Please refer to urologist's notes. BONILLA: [id number] 08/16/2017 [facility] Scrotal/Testicle w Doppler US Testicular ultrasound [...] right epididymal head cyst. SL: MORENO 08/16/2017 [facility] Abdomen/Pelvis CTA CTA ABDOMEN /PELVIS WITH [...] is interval increase in hydronephrosis. SL:16 08/16/2017 [facility] Chest 2 views DX Clinical Latoya [...] from the previous study. SL: MGLASER-M 08/15/2017 [facility] Chest/Abd/Pelvis CTA Patient N sharla: TERESA WARD : 1955; Age: 61 years y/o Male MR: [id number] Study: Chest/Abd/Pelvis CTA 06/12/2017 8:49 AM [facility] Ordering Physician: Rock Reese MD Clinical Indication: [...] thrombosed infrarenal abdominal aortic aneurysm sac. SL: [id number] 06/12/2017 [facility] Chest/Abdominal Aorta with Runoff CTA Patient Name: TERESA WARD : 1955; Age: 61 years y/o Male MR: [id number] Study: Chest/Abdominal Aorta with Runoff CTA 04/11/2017 [...] spine series.. SL: 12 03/23/2014 [facility] Consultation Notes No Data Provided for This Section Discharge Summaries No Data Provided for This Section History and Physicals No Data Provided for This Section Vital Signs Vital Sign Value Date Comments Source Systolic (mm Hg) 173 11/26/2017 [facility] Diastolic (mm Hg) 65 11/26/2017 [facility] Systolic (mm Hg) 170 11/26/2017 [facility] Diastolic (mm Hg) 57 11/26/2017 [facility] Systolic (mm Hg) 169 11/26/2017 [facility] Diastolic (mm Hg) 57 11/26/2017 [facility] Respitory Rate 20 11/26/2017 [facility] Respitory Rate 18 11/26/2017 [facility] Heart Rate 56 11/26/2017 [facility] Respitory Rate 17 11/26/2017 [facility] Temperature Oral (F) 98.3 F 11/19/2017 [facility] Heart Rate 60 11/19/2017 [facility] Weight 86.08 11/19/2017 [facility] BMI Calculated 32.57 11/19/2017 [facility] Height 162.56 cm 11/19/2017 [facility] Heart Rate 71 09/10/2017 [facility] Respitory Rate 18 09/10/2017 [facility] Temperature Oral (F) 99.0 F 09/10/2017 [facility] Systolic (mm Hg) 165 09/10/2017 [facility] Diastolic (mm Hg) 61 09/10/2017 [facility] Height 162.56 cm 09/10/2017 [facility] Weight 84.091 09/10/2017 [facility] BMI Calculated 31.82 09/10/2017 [facility] Systolic (mm Hg) 104 09/02/2017 [facility] Diastolic (mm Hg) 82 09/02/2017 [facility] Respitory Rate 16 09/02/2017 [facility] Temperature Oral (F) 98.7 F 09/02/2017 [facility] Respitory Rate 16 09/02/2017 [facility] Temperature Oral (F) 98.7 F 09/02/2017 [facility] Systolic (mm Hg) 134 09/02/2017 [facility] Diastolic (mm Hg) 66 09/02/2017 [facility] Weight 81.818 09/02/2017 [facility] BMI Calculated 34.08 09/02/2017 [facility] Systolic (mm Hg) 125 09/02/2017 [facility] Diastolic (mm Hg) 81 09/02/2017 [facility] Height 154.94 cm 09/02/2017 [facility] Respitory Rate 18 09/02/2017 [facility] Heart Rate 85 09/02/2017 [facility] Temperature Oral (F) 98.3 F 09/02/2017 [facility] Systolic (mm Hg) 127 08/16/2017 [facility] Diastolic (mm Hg) 69 08/16/2017 [facility] Respitory Rate 16 08/16/2017 [facility] Heart Rate 64 08/16/2017 [facility] Temperature Oral (F) 97.5 F 08/16/2017 [facility] Heart Rate 73 08/16/2017 [facility] Systolic (mm Hg) 146 08/16/2017 [facility] Diastolic (mm Hg) 74 08/16/2017 [facility] Respitory Rate 16 08/16/2017 [facility] Systolic (mm Hg) 146 08/16/2017 [facility] Diastolic (mm Hg) 74 08/16/2017 [facility] Respitory Rate 16 08/16/2017 [facility] Heart Rate 73 08/16/2017 [facility] Temperature Oral (F) 97.5 F 08/16/2017 [facility] Temperature Oral (F) 98.2 F 08/16/2017 [facility] Height 160.02 cm 08/15/2017 [facility] Weight 81.818 08/15/2017 [facility] BMI Calculated 31.95 08/15/2017 [facility] Systolic (mm Hg) 124 04/30/2017 [facility] Diastolic (mm Hg) 67 04/30/2017 [facility] Respitory Rate 16 04/30/2017 [facility] Heart Rate 60 04/30/2017 [facility] Temperature Oral (F) 98.1 F 04/30/2017 [facility] Heart Rate 61 04/30/2017 [facility] Temperature Oral (F) 98.2 F 04/30/2017 [facility] Respitory Rate 16 04/30/2017 [facility] Systolic (mm Hg) 93 04/30/2017 [facility] Diastolic (mm Hg) 51 04/30/2017 [facility] Systolic (mm Hg) 98 04/30/2017 [facility] Diastolic (mm Hg) 49 04/30/2017 [facility] Respitory Rate 16 04/30/2017 [facility] Heart Rate 56 04/30/2017 [facility] Temperature Oral (F) 98.1 F 04/30/2017 [facility] BMI Calculated 32.68 04/29/2017 [facility] Weight 86.364 04/29/2017 [facility] Height 162.56 cm 04/29/2017 [facility] Diastolic (mm Hg) 68 03/23/2014 [facility] Respitory Rate 16 03/23/2014 [facility] Systolic (mm Hg) 163 03/23/2014 [facility] Temperature Oral (F) 97.8 F 03/23/2014 [facility] Heart Rate 60 03/23/2014 [facility] Weight 90.909 03/23/2014 [facility] Respitory Rate 16 03/23/2014 [facility] Temperature Oral (F) 98.1 F 03/23/2014 [facility] Diastolic (mm Hg) 77 03/23/2014 [facility] Heart Rate 65 03/23/2014 [facility] Systolic (mm Hg) 145 03/23/2014 [facility] BMI Calculated 34.4 03/23/2014 [facility] Height 162.56 cm 03/23/2014 [facility] Encounters Location Location Details Encounter Type Encounter Number Reason For Visit Attending Provider ADM Date DC Date Status Source [facility] [id number] An Oliveros 03/23/2014 03/23/2014 [facility] [place] [facility] Di[facility] Services [id number] Ranjan Gil 04/11/2017 [facility] [id number] Ranjan Gil 04/29/2017 04/30/2017 [facility] Outpatient [id number] Rock Reese 06/12/2017 06/13/2017 [facility] Inpatient [id number] Ranjna Gil 08/15/2017 08/17/2017 [facility] Emergency [id number] Reece Puentes 09/02/2017 09/02/2017 [facility] Outpatient [id number] Jose Guadalupe Jenkins 09/10/2017 09/10/2017 [facility] Outpatient [id number] Jose Guadalupe Jenkins 11/18/2017 11/19/2017 [facility] [id number] [facility]2017 [facility] [place] Out[facility] Diag Services [id number] Gary Mayers 02/04/2018 02/05/2018 [facility]AD [facility] Outpatient [id number] Ranjan Gil 10/02/2018 10/03/2018 [facility] Procedures Procedure Code Date Perfomer Comments Source AAA - Repair of abdominal aortic aneurys m using bifurcation graft [id number] [facility] [place] [id number] [facility] Miscellaneous operations<sup>1</sup> [id number] back surge ry FARHAD Arboleda,[facility] Cystoscopy [id number] [facility] Procedure on back<sup>2</sup> [id number] Surgery [facility] Assessment and Plan Assessment and Plan [...] doing well with no other complaints. 08/17/2017 [facility] Extracted from:Title: Clinical Document Author: Taniya [...] Palpable FA. Telemetry: Normal sinus rhythm 04/30/2017 [facility] Plan of Care No Data Provided [...] Cessation Counseling No entered on: 11/19/17 11/19/2017 [facility] Social History TypeResponse Smoking Status Never smoker, Exposure to Tobacco Smoke None, Cigarette Smoking Last 365 Days No, Reg Smoking Cessation Counseling No 03/23/2014 [facility] Family History No Data Provided for This Section Advance Directives No Data Provided for This Section Functional Status No Data Provided for This Section
--- OUTSIDE RECORDS SUMMARY | 2019-12-15 16:42 | XMS REPORT | Continuity of Care Document ---
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 (three) times daily before meals. [facility] tamsulosin (FLOMAX) 0.4 mg Cp24 24 hr capsule 2017-02-02 08:33:0 2 Yes .4mg Q.5D Take 0.4 mg by mouth 2 (two) times daily. [facility] allopurinol (ZYLOPRIM) 300 MG tablet 2017-02-02 08:33:02 Ye s 300mg QD Take 300 mg by mouth daily. [facility] Allopurinol Allopurinol Yes 300 Daily [facility] Aspirin (Aspir 81) 81 Mg TABLET. Aspirin (Aspir 81) 81 Mg TABLET. Yes 81 Use As Directed [facility] Atorvastatin Calcium (Lipitor) 20 Mg TABLET Atorvastat in Calcium (Lipitor) 20 Mg TABLET Yes 40 Daily [facility] Minocycline Hcl Minocycline Hcl Yes 100 Every 12 Hours [facility] Tamsulosin Hcl (Flomax*) 0.4 Mg CAP Tamsulosin Hcl (Flomax*) 0.4 Mg C AP Yes .4 Daily [facility] Tramadol Hcl (Ultram) 50 Mg TABLET Tramadol Hcl (Ultram) 50 Mg TABLET Yes 50 Every 8 Hours for Pain [facility] Furosemide (Lasix) 40 Mg TABLET Furosemide (Lasix) 40 Mg TABLET 2019-12-06 00:00:00 No 40 Daily [facility] Hydrochlorothiazide Hydrochlorothiazide 2019-12-06 00:00:00 No 12.5 Daily [facility] Metoprolol Succinate Metoprolol Succinate 2019-12-06 00:00:00 No 50 Daily [facility] Atenolol Atenolol 2019-11-26 00:00:00 No 50 Daily [facility] Allopurinol Allopurinol 2019-11-01 00:00:00 No U nknown Dose [facility] Atenolol Atenolol 2019-11-01 00:00:00 No Unknown Dose [facility] Doxazosin Mesylate Doxazosin Mesylate 2019-11-01 00:00:00 No Unknown Dose [facility] Dutasteride (Avodart) 0.5 Mg CAPSULE Dutasteride (Avodart) 0.5 M g CAPSULE 2019-11-01 00:00:00 No .5 Daily [facility] Naproxen Naproxen 2019-11-01 00:00:00 No Unknown Dose [facility] Tramadol Hcl (Ultram) 50 Mg TABLET Tramadol Hcl (Ultram) 50 Mg T ABLET 2019-11-01 00:00:00 No 50 Q6h Prn [facility] Vital Signs Vital Name Observation Time Observation Value Comments Source Weight 2019-12-08 16:11:00 180 [lb_av] [facility] BMI (Body Mass Index) 2019-12-08 16:11:00 30.9 kg/m2 [facility] Body Temperature 2019-12-06 16:00:00 98.2 [degF] [facility] BMI (Body Mass Index) 2019-12-04 22:06:00 30.9 kg/m2 [facility] Weight 2019-12-04 08:06:00 180 [lb_av] [facility] Body Temperature 2019-11-27 08:37:00 97.7 [degF] [facility] Weight 2019-11-26 18:28:00 180 [lb_av] [facility] BMI (Body Mass Index) 2019-11-26 18:28:00 30.9 kg/m2 [facility] Systolic (mm Hg) 2017-11-26 15:30:00 [facility] Diastolic (mm Hg) 2017-11-26 15:30:00 [facility] Systolic (mm Hg) 2017-11-26 14:45:00 [facility] [place] Diastolic (mm Hg) 2017-11-26 14:45:00 [facility] [place] Systolic (mm Hg) 2017-11-26 14:30:00 [facility] [place] Diastolic (mm Hg) 2017-11-26 14:30:00 [facility] [place] Respitory Rate 2017-11-26 14:15:00 [facility] [place] Respitory Rate 2017-11-26 14:00:00 [facility] Heart Rate 2017-11-26 11:48:00 [facility] Respitory Rate 2017-11-26 11:48:00 [facility] Temperature Oral (F) 2017-11-19 14:05:00 98.3 F [facility] Heart Rate 2017-11-19 14:05:00 [facility] Weight 2017-11-19 14:01:00 [facility] BMI Calculated 2017-11-19 14:01:00 [facility] Height 2017-11-19 14:01:00 162.56 cm [facility] Heart Rate 2017-09-10 22:55:00 [facility] Respitory Rate 2017-09-10 22:55:00 [facility] Temperature Oral (F) 2017-09-10 22:55:00 99.0 F [facility] Systolic (mm Hg) 2017-09-10 22:55:00 [facility] [place] Diastolic (mm Hg) 2017-09-10 22:55:00 [facility] [place] Height 2017-09-10 21:51:00 162.56 cm [facility] Weight 2017-09-10 21:51:00 [facility] BMI Calculated 2017-09-10 21:51:00 [facility] [place] Systolic (mm Hg) 2017-09-02 14:28:00 [facility] [place] Diastolic (mm Hg) 2017-09-02 14:28:00 [facility] [place] Respitory Rate 2017-09-02 14:28:00 [facility] Temperature Oral (F) 2017-09-02 14:28:00 98.7 F [facility] Respitory Rate 2017-09-02 13:14:00 [facility] Temperature Oral (F) 2017-09-02 13:14:00 98.7 F [facility] Systolic (mm Hg) 2017-09-02 13:14:00 [facility] [place] Diastolic (mm Hg) 2017-09-02 13:14:00 [facility] Weight 2017-09-02 11:24:00 [facility] BMI Calculated 2017-09-02 11:24:00 [facility] Systolic (mm Hg) 2017-09-02 11:24:00 [facility] [place] Diastolic (mm Hg) 2017-09-02 11:24:00 [facility] Height 2017-09-02 11:24:00 154.94 cm [facility] Respitory Rate 2017-09-02 11:24:00 [facility] Heart Rate 2017-09-02 11:24:00 [facility] Temperature Oral (F) 2017-09-02 11:24:00 98.3 F [facility] Systolic (mm Hg) 2017-08-16 23:30:00 [facility] [place] Diastolic (mm Hg) 2017-08-16 23:30:00 [facility] Respitory Rate 2017-08-16 23:30:00 [facility] Heart Rate 2017-08-16 23:30:00 [facility] Temperature Oral (F) 2017-08-16 23:30:00 97.5 F [facility] Heart Rate 2017-08-16 22:41:00 [facility] Systolic (mm Hg) 2017-08-16 22:41:00 [facility] [place] Diastolic (mm Hg) 2017-08-16 22:41:00 [facility] Respitory Rate 2017-08-16 22:41:00 [facility] Systolic (mm Hg) 2017-08-16 22:30:00 [facility] [place] Diastolic (mm Hg) 2017-08-16 22:30:00 [facility] Respitory Rate 2017-08-16 22:30:00 [facility] Heart Rate 2017-08-16 22:30:00 [facility] Temperature Oral (F) 2017-08-16 22:30:00 97.5 F [facility] Temperature Oral (F) 2017-08-16 22:11:00 98.2 F [facility] Height 2017-08-15 22:40:00 160.02 cm [facility] Weight 2017-08-15 22:40:00 [facility] BMI Calculated 2017-08-15 22:40:00 [facility] Systolic (mm Hg) 2017-04-30 16:37:00 [facility] [place] Diastolic (mm Hg) 2017-04-30 16:37:00 [facility] Respitory Rate 2017-04-30 16:37:00 [facility] Heart Rate 2017-04-30 16:37:00 [facility] Temperature Oral (F) 2017-04-30 16:37:00 98.1 F [facility] Heart Rate 2017-04-30 12:44:00 [facility] Temperature Oral (F) 2017-04-30 12:44:00 98.2 F [facility] Respitory Rate 2017-04-30 12:44:00 [facility] Systolic (mm Hg) 2017-04-30 12:44:00 [facility] [place] Diastolic (mm Hg) 2017-04-30 12:44:00 [facility] Systolic (mm Hg) 2017-04-30 08:58:00 [facility] [place] Diastolic (mm Hg) 2017-04-30 08:58:00 [facility] [place] Respitory Rate 2017-04-30 08:58:00 [facility] Heart Rate 2017-04-30 08:58:00 [facility] Temperature Oral (F) 2017-04-30 08:58:00 98.1 F [facility] BMI Calculated 2017-04-29 16:55:00 [facility] Weight 2017-04-29 16:55:00 [facility] Height 2017-04-29 16:55:00 162.56 cm [facility] Diastolic (mm Hg) 2014-03-23 18:05:00 [facility] Respitory Rate 2014-03-23 18:05:00 [facility] Systolic (mm Hg) 2014-03-23 18:05:00 [facility] Temperature Oral (F) 2014-03-23 18:05:00 97.8 F [facility] Heart Rate 2014-03-23 18:05:00 [facility] Weight 2014-03-23 16:46:00 [facility] Respitory Rate 2014-03-23 16:46:00 [facility] Temperature Oral (F) 2014-03-23 16:46:00 98.1 F [facility] Diastolic (mm Hg) 2014-03-23 16:46:00 [facility] Heart Rate 2014-03-23 16:46:00 [facility] Systolic (mm Hg) 2014-03-23 16:46:00 [facility] BMI Calculated 2014-03-23 16:46:00 [facility] Height 2014-03-23 16:46:00 162.56 cm [facility] Procedures Procedure Date / Time Performed Performing Clinician [facility] Computed tomography angiography of abdom en and pelvis without then with contrast 2019-12-06 00:00:00 [facility] INSERT CARD RSYNC DEFIB PULS GEN IN CHEST SUBCU/FASCIA , OPEN 2019-11-26 00:00:00 [facility] INSERTION OF DEFIB LEAD INTO L VENTRICLE, PERC APPROACH 00:00:00 [facility] INSERTION OF DEFIB LEAD INTO R VENTRICLE, PERC APPROACH 00:00:00 [facility] INSERTION OF DEFIBRILLATOR LEAD INTO R ATRIUM, PERC AP PROACH 2019-11-26 00:00:00 [facility] L HRT ARTERY/VENTRICLE ANGIO 2019-11-02 00:00:00 [facility] AAA - Repair of abdominal aortic aneurysm using bifurcation monisha t [facility] Cholecystectomy [facility] Miscellaneous operations<sup>1</sup> [facility] Cystoscopy [facility] Procedure on back<sup>2</sup> Me [facility] Plan of Care Planned Activity Planned Date Details Comments Source Future Scheduled Test 2020-04-06 00:00:00 IMM Influenza Seas onal Apr to September (>/= 19 yrs) [code = IMM Influenza Seasonal Apr to September (>/= 19 yrs)] [facility] Scheduled Test 2018 00:00:00 IMM Pneumococcal A ge 65 and Up [code = IMM Pneumococcal Age 65 and Up] [facility] Scheduled Test 2003-09-16 00:00:00 Colorectal Cancer Scrn Annual (FIT/FOBT) Age 50 to 75 [code = Colorectal Cancer Scrn Annual (FIT/FOBT) Age 50 to 75] [facility] Encounters Start Date/Time End Date/Time En[facility] ID Source 2019-12-08 15:28:00 2019-12-08 18:26:00 Departed Emergency Room [facility] [id number] [facility] 2019-12-04 09:09:00 2019-12-06 17:20:00 Discharged Inpatient 1 ROBERT MENDOZA [facility] [id number] [facility] 2019-11-25 13:06:00 2019-11-27 11:10:00 Discharged Inpatient 1 JASON GIL [facility] [id number] [facility] 2019-11-02 10:55:00 2019-11-02 10:55:00 Registered Surgical Day Care [facility] [id number] [facility] 2019-10-28 19:11:00 2019-10-28 21:09:00 Departed Emergency Room [facility] [id number] [facility] 2019-01-06 08:19:31 2019-01-06 08:19:31 Outpatient [facility] [id number] [facility] 2018-12-23 08:22:31 2018-12-23 08:22:31 Outpatient [facility] [id number] [facility] 2018-12-17 16:57:05 2018-12-17 16:57:05 Outpatient [facility] [id number] [facility] 2018-12-16 00:00:00 2018-12-16 00:00:00 Outpatient [facility] [id number] [facility] 2018-12-13 00:00:00 2018-12-13 00:00:00 Outpatient [facility] [id number] [facility] 2018-12-12 12:13:44 2018-12-12 12:13:44 Emergency [facility] [id number] [facility] 2018-12-12 11:35:30 2018-12-12 11:35:30 Emergency [facility] [id number] [facility] 2018-12-12 00:00:00 2018-12-12 00:00:00 Outpatient [facility] [id number] [facility] 2018-12-12 00:00:00 2018-12-12 00:00:00 Emergency [facility] [id number] [facility] 2018-12-12 00:00:00 2018-12-12 00:00:00 Emergency [facility] [id number] [facility] 2018-10-02 08:30:00 2018-10-02 23:59:00 Outpatient Jason Gil [facility] [id number] 2018-02-04 10:40:00 2018-02-04 23:59:00 Outpatient Gary Mayers [facility]IP [id number] 2017-11-26 05:29:00 2017-11-26 10:40:00 Outpatient Jose Guadalupe Jenkins MHSE MHSE [id number] 2017-11-18 09:29:00 2017-11-18 23:59:00 Outpatient Jose Guadalupe Jenkins MHSE MHSE [id number] 2017-09-10 09:00:00 2017-09-10 12:00:00 Outpatient Jose Guadalupe Jenkins MHSE MHSE [id number] 2017-09-02 05:16:00 2017-09-02 09:05:00 Outpatient Reece Puentes MHSE MHSE [id number] 2017-08-15 16:18:00 2017-08-16 20:18:00 Outpatient Kelby Leigh MHSE MHSE [id number] 2017-06-12 08:00:00 2017-06-12 23:59:00 Outpatient Melchor Reese MHSE MHSE [id number] 2017-04-29 11:10:00 2017-04-30 15:48:00 Outpatient Jason Gil SE SE [id number] 2017-04-11 08:22:00 2017-04-11 23:59:00 Outpatient Minna Gil [facility] [id number] 2014-03-23 11:44:00 2014-03-23 13:47:00 Outpatient Keith Oliveros [facility] [place] [id number] Results Test Description Test Time Test Comments Results Result Comments Source CHEST SINGLE (PORTABLE) 2019-12-15 15:38:00 [facility] [address] [address] Patient Name: TERESA WARD MR #: [id number] : 1955 Age/Sex: 64/M Req #: [id number] Adm Physician: Ordered by: FRANK DOMINGUEZ MD Report #: [id number] Location: ER Room/Bed: Procedure: [id number] DX/CHEST SINGLE (PORTABLE) Exam Date: 12/15/19 Exam Time: 1430 REPORT STATUS: Signed EXAMINATION: CHEST SINGLE (PORTABLE) INDICATION: Fever COMPARISON: Chest radiograph 12/05/2019 FINDINGS: LINES/TUBES:Left chest pacer. LUNGS:The right lung is well-inflated. Left lung volume is relatively low. Unchanged left lower lung opacities. PLEURA:No pleural effusion. No pneumothorax. MEDIASTINUM:The cardiomediastinal silhouette appears unchanged in size and shape. Atherosclerotic calcifications of the thoracic aorta. BONES/SOFT TISSUES:No acute osseous injury. Old left clavicle fracture. ABDOMEN:No free air under the diaphragm. IMPRESSION: Unchanged left basilar opacities, more likely subsegmental atelectasis than superimposed aspiration or pneumonia. Signed by: Anita Egan MD on 12/15/2019 3:39 PM Dictated By: ANITA EGAN MD 38 Transcribed By: CADEN on 12/15/191538 COPY TO: FRANK DOMINGUEZ MD CTA ABD/PELVIS 2019-12-06 13:18:[address] [address] Patient Name: TERESA WARD MR #: [id number] : 1955 Age/Sex: 64/M Req #: [id number] Adm Physician: ROBERT MENDOZA MD Ordered by: JASON GIL MD Report #: [id number] Location: [facility] Room/Bed: [address] [address] Procedure: [id number] CT/CTA ABD/PELVIS Exam Date: 12/06/19 Exam Time: [...] 1:57 PM Dictated By: RAFFY CAPUTO MD 446 Transcribed By: CADEN on 12/06/191356 COPY TO: JASON GIL MD Blood hemoglobin measurement (moles/volume) 2019-12-06 08:50 :00 Test Item Hemoglobin (test code = 43427-8) 12.2 14.0-18.0 [facility] hematocrit (volume fraction)2019-12-06 08:50:00* Test Item Value Reference Range Interpretation Comments Hematocrit (test code = 4544-3) 38.3 38.2-49.6 [facility]thrombin time (PT) in platelet poor plasma by coagulation [id number] 08:50:00* Test Item Value Reference Range Interpretation Comments Prothrombin Time (test code = 5902-2) 13.1 11.9-14.5 [facility] in Platelet poor plasma by Coagulation [id number] 08:50:00* Test Item Value Reference Range Interpretation Comments Prothromb Time International Ratio (test code = 6301-6) 0.94 Oral Anticoagulant Therapy INR Values:1. Low Intensity Therapy 1.5 - 2.02 . Moderate Intensity Therapy 2.0 - 3.03. High Intensity Therapy(1) 2.5 - 3. 54. High Intensity Therapy(2) 3.0 - 4.05. Panic Value INR > 5.0 [facility] CampusActivated partial thromboplastin time (aPTT) in platelet poor plasma by coagulation [id number] 08:50:00* Test Item Value Reference Range Interpretation Comments Activated Partial Thromboplast Time (test code = 61091-5) 31.0 23.8-35.5 [facility] hemoglobin measurement (moles/volume)2019-12-06 08:50:00* Test Item Value Reference Range Interpretation Comments Hemoglobin (test code = 44175-4) 12.2 14.0-18.0 [facility] hematocrit (volume fraction)2019-12-06 08:50:00* Test Item Value Reference Range Interpretation Comments Hematocrit (test code = 4544-3) 38.3 38.2-49.6 [facility]thrombin time (PT) in platelet poor plasma by coagulation [id number] 08:50:00* Test Item Value Reference Range Interpretation Comments Prothrombin Time (test code = 5902-2) 13.1 11.9-14.5 [facility] in Platelet poor plasma by Coagulation [id number] 08:50:00* Test Item Value Reference Range Interpretation Comments Prothromb Time International Ratio (test code = 6301-6) 0.94 Oral Anticoagulant Therapy INR Values:1. Low Intensity Therapy 1.5 - 2.02 . Moderate Intensity Therapy 2.0 - 3.03. High Intensity Therapy(1) 2.5 - 3. 54. High Intensity Therapy(2) 3.0 - 4.05. Panic Value INR > 5.0 [facility] CampusActivated partial thromboplastin time (aPTT) in platelet poor plasma by coagulation [id number] 08:50:00* Test Item Value Reference Range Interpretation Comments Activated Partial Thromboplast Time (test code = 93874-2) 31.0 23.8-35.5 [facility] leukocytes automated count (number/volume)2019-12-06 04:15:00* Test Item Value Reference Range Interpretation Comments White Blood Count (test code = 6690-2) 6.28 4.8-10.8 [facility] erythrocytes automated count (number/volume)2019-12-06 04:15:00* Test Item Value Reference Range Interpretation Comments Red Blood Count (test code = 789-8) 3.48 4.3-5.7 [facility] erythrocyte mean corpuscular [id number] 04:15:00* Test Item Value Reference Range Interpretation Comments Mean Corpuscular Volume (test code = 787-2) 98.3 81-99 [facility] erythrocyte mean corpuscular hemoglobin (mass per erythrocyte)2019-12-06 04:15:00* Test Item Value Reference Range Interpretation Comments Mean Corpuscular Hemoglobin (test code = 785-6) 31.3 28-32 [facility] erythrocyte mean corpuscular hemoglobin concentration measurement (mass/volume)2019-12-06 04:15:00* Test Item Value Reference Range Interpretation Comments Mean Corpuscular Hemoglobin Concent (test code = 786-4) 31.9 31-35 [facility] CampusRDW [id number] 04:15:00* Test Item Value Reference Range Interpretation Comments Red Cell Distribution Width (test code = 21131-6) 14.3 11.7 -14.4 [facility] CampusAutomated blood platelet count (count/volume)2019-12-06 04:15:00* Test Item Value Reference Range Interpretation Comments Platelet Count (test code = 777-3) 88 140-360 [facility] CampusAutformerly [facility], [facility]ed blood segmented neutrophil count as percentage of total [id number] 04:15:00* Test Item Value Reference Range Interpretation Comments Neutrophils (%) (Auto) (test code = 51602-8) 62.0 38.7-80.0 [facility] CampusAutomated blood lymphocyte count as percentage ot total zlljgjmhgz4891-01-75 04:15:00* Test Item Value Reference Range Interpretation Comments Lymphocytes (%) (Auto) (test code = 736-9) 23.1 18.0-39.1 [facility] CampusAutomated blood monocyte count as percentage of total grswhremnq9021-51-11 04:15:00* Test Item Value Reference Range Interpretation Comments Monocytes (%) (Auto) (test code = 5905-5) 8.9 4.4-11.3 [facility] CampusAutomated blood eosinophil count as percentage of total svanlghddk3778-67-14 04:15:00* Test Item Value Reference Range Interpretation Comments Eosinophils (%) (Auto) (test code = 713-8) 5.3 0.0-6.0 [facility] CampusAutomated blood basophil count as percentage of total tfwmazwhrb0799-74-96 04:15:00* Test Item Value Reference Range Interpretation Comments Basophils (%) (Auto) (test code = 706-2) 0.5 0.0-1.0 [facility] CampusFluoroscopic procedure less than one hour [id number] 04:15:00* Test Item Value Reference Range Interpretation Comments IM GRANULOCYTES % (test code = IM GRANULOCYTES %) 0.2 0.0- 1.0 [facility] [facility] neutrophil count 2019-12-06 04:15:00* Test Item Value Reference Range Interpretation Comments Neutrophils # (Auto) (test code = 751-8) 3.9 2.1-6.9 [facility] lymphocytes count (number/volume) 2019-12-06 04:15:00* Test Item Value Reference Range Interpretation Comments Lymphocytes # (Auto) (test code = 69727-2) 1.5 1.0-3.2 [facility]Blood monocytes automated count (number/volume)2019-12-06 04:15:00* Test Item Value Reference Range Interpretation Comments Monocytes # (Auto) (test code = 742-7) 0.6 0.2-0.8 [facility]Automated blood eosinophil count 2019-12-06 04:15:00* Test Item Value Reference Range Interpretation Comments Eosinophils # (Auto) (test code = 711-2) 0.3 0.0-0.4 [facility]Automated blood basophil count (count/volume)2019-12-06 04:15:00* Test Item Value Reference Range Interpretation Comments Basophils # (Auto) (test code = 704-7) 0.0 0.0-0.1 [facility] CampusFluoroscopic procedure less than one hour ddxvumox4584-04-93 04:15:00* Test Item Value Reference Range Interpretation Comments Absolute Immature Granulocyte (auto (virgen t code = Absolute Immature Granulocyte (auto) 0.01 0-0.1 [facility] sodium [facility] (moles/volume)2019-12-06 04:15:00* Test Item Value Reference Range Interpretation Comments Sodium Level (test code = 2951-2) 139 136-145 [facility] potassium measurement (moles/volume)2019-12-06 04:15:00* Test Item Value Reference Range Interpretation Comments Potassium Level (test code = 2823-3) 3.8 3.5-5.1 [facility] chloride measurement (moles/volume)2019-12-06 04:15:00* Test Item Value Reference Range Interpretation Comments Chloride Level (test code = 2075-0) 108 98-107 [facility] carbon dioxide, total measurement (moles/volume)2019-12-06 04:15:00* Test Item Value Reference Range Interpretation Comments Carbon Dioxide Level (test code = 2028-9) 25 22-29 [facility] anion qoj0288-80-99 04:15:00* Test Item Value Reference Range Interpretation Comments Anion Gap (test code = 41345-3) 9.8 8-16 [facility] urea nitrogen measurement (mass/volume)2019-12-06 04:15:00* Test Item Value Reference Range Interpretation Comments Blood Urea Nitrogen (test code = 3094-0) 20 7-26 [facility] creatinine measurement (mass/volume)2019-12-06 04:15:00* Test Item Value Reference Range Interpretation Comments Creatinine (test code = 2160-0) 0.97 0.72-1.25 [facility]er[facility] urea nitrogen/creatinine mass ypoam5853-57-66 04:15:00* Test Item Value Reference Range Interpretation Comments BUN/Creatinine Ratio (test code = 3097-3) 21 6-25 [facility] CampusEstimated glomerular filtration rate (GFR) cnfiofffvcipg2728-18-63 04:15:00* Test Item Value Reference Range Interpretation Comments Estimat Glomerular Filtration Rate (test code = 947924711) > 60 >60 Ranges were taken from the National Kidney Disease Education Program and the [facility] literature.Reference ranges:60 or greater: Uzwirc56-78 ( for 3 consecutive months): Chronic kidney disease 15 or less: Kidney failureThe Hospitals of Providence [facility] CampusGlucose xyozghzxpeh3531-38-96 04:15:00* Test Item Value Reference Range Interpretation Comments Glucose Level (test code = QDR1098) 83 74-118 [facility] plasma calcium measurement (mass/volume)2019-12-06 04:15:00* Test Item Value Reference Range Interpretation Comments Calcium Level (test code = 07545-0) 7.8 8.4-10.2 [facility] Hospitaler[facility] plasma total bilirubin measurement (mass/volume)2019-12-06 04:15:00* Test Item Value Reference Range Interpretation Comments Total Bilirubin (test code = 1975-2) 0.6 0.2-1.2 [facility] CampusFluoroscopic procedure less than one hour gmhopkyd2250-22-95 04:15:00* Test Item Value Reference Range Interpretation Comments Aspartate Amino Transf (AST/SGOT) (test code = Aspartate Amino Transf (AST/SGOT)) 24 5-34 [facility]er[facility] plasma alanine aminotransferase measurement (enzymatic activity/volume)2019-12-06 04:15:00* Test Item Value Reference Range Interpretation Comments Alanine Aminotransferase (ALT/SGPT) (test code = 1742-6) 23 0-55 [facility]er[facility] protein measurement (mass/volume)2019-12-06 04:15:00* Test Item Value Reference Range Interpretation Comments Total Protein (test code = 2885-2) 6.1 6.5-8.1 [facility] Hospitaler[facility] or plasma albumin measurement (mass/volume)2019-12-06 04:15:00* Test Item Value Reference Range Interpretation Comments Albumin (test code = 1751-7) 2.7 3.5-5.0 [facility] CampusPlasma globulin measurement (mass/volume) 2019-12-06 04:15:00* Test Item Value Reference Range Interpretation Comments Globulin (test code = 74736-4) 3.4 2.3-3.5 [facility]er[facility] plasma albumin/globulin mass zitkj1234-94-97 04:15:00* Test Item Value Reference Range Interpretation Comments Albumin/Globulin Ratio (test code = 1759-0) 0.8 0.8-2.0 [facility] Hospitaler[facility] or plasma alkaline phosphatase measurement (enzymatic activity/volume)2019-12-06 04:15:00* Test Item Value Reference Range Interpretation Comments Alkaline Phosphatase (test code = 6768-6) 83 40-150 [facility]Blood leukocytes automated count (number/volume)2019-12-06 04:15:00* Test Item Value Reference Range Interpretation Comments White Blood Count (test code = 6690-2) 6.28 4.8-10.8 [facility]Blood erythrocytes automated count (number/volume)2019-12-06 04:15:00* Test Item Value Reference Range Interpretation Comments Red Blood Count (test code = 789-8) 3.48 4.3-5.7 [facility] CampusAutomated erythrocyte mean corpuscular dqmybs0859-50-77 04:15:00* Test Item Value Reference Range Interpretation Comments Mean Corpuscular Volume (test code = 787-2) 98.3 81-99 [facility] CampusAutomated erythrocyte mean corpuscular hemoglobin (mass per erythrocyte)2019-12-06 04:15:00* Test Item Value Reference Range Interpretation Comments Mean Corpuscular Hemoglobin (test code = 785-6) 31.3 28-32 [facility] CampusAutomated erythrocyte mean corpuscular hemoglobin concentration measurement (mass/volume)2019-12-06 04:15:00* Test Item Value Reference Range Interpretation Comments Mean Corpuscular Hemoglobin Concent (test code = 786-4) 31.9 31-35 [facility] CampusRDW LqmHr-Hxd5355-95-01 04:15:00* Test Item Value Reference Range Interpretation Comments Red Cell Distribution Width (test code = 65703-3) 14.3 11.7 -14.4 [facility] CampusAutomated blood platelet count (count/volume)2019-12-06 04:15:00* Test Item Value Reference Range Interpretation Comments Platelet Count (test code = 777-3) 88 140-360 [facility] CampusAutomated blood segmented neutrophil count as percentage of total dhohpbhohb7405-75-69 04:15:00* Test Item Value Reference Range Interpretation Comments Neutrophils (%) (Auto) (test code = 95211-6) 62.0 38.7-80.0 [facility] CampusAutomated blood lymphocyte count as percentage ot total tdebldbdps5847-39-92 04:15:00* Test Item Value Reference Range Interpretation Comments Lymphocytes (%) (Auto) (test code = 736-9) 23.1 18.0-39.1 [facility] CampusAutomated blood monocyte count as percentage of total gsubbdpvif8880-67-81 04:15:00* Test Item Value Reference Range Interpretation Comments Monocytes (%) (Auto) (test code = 5905-5) 8.9 4.4-11.3 [facility]Autformerly [facility], [facility]ed blood eosinophil count as percentage of total sggqmcjsel3664-00-40 04:15:00* Test Item Value Reference Range Interpretation Comments Eosinophils (%) (Auto) (test code = 713-8) 5.3 0.0-6.0 [facility] CampusAutomated blood basophil count as percentage of total ksmiykyznq8455-95-03 04:15:00* Test Item Value Reference Range Interpretation Comments Basophils (%) (Auto) (test code = 706-2) 0.5 0.0-1.0 [facility] CampusFluoroscopic procedure less than one hour yylntpgo6150-82-79 04:15:00* Test Item Value Reference Range Interpretation Comments IM GRANULOCYTES % (test code = IM GRANULOCYTES %) 0.2 0.0- 1.0 [facility] CampusAutomated blood neutrophil count 2019-12-06 04:15:00* Test Item Value Reference Range Interpretation Comments Neutrophils # (Auto) (test code = 751-8) 3.9 2.1-6.9 [facility] CampusBlood lymphocytes count (number/volume) 2019-12-06 04:15:00* Test Item Value Reference Range Interpretation Comments Lymphocytes # (Auto) (test code = 89004-2) 1.5 1.0-3.2 [facility]Blood monocytes automated count (number/volume)2019-12-06 04:15:00* Test Item Value Reference Range Interpretation Comments Monocytes # (Auto) (test code = 742-7) 0.6 0.2-0.8 [facility] CampusAutomated blood eosinophil count 2019-12-06 04:15:00* Test Item Value Reference Range Interpretation Comments Eosinophils # (Auto) (test code = 711-2) 0.3 0.0-0.4 [facility] CampusAutomated blood basophil count (count/volume)2019-12-06 04:15:00* Test Item Value Reference Range Interpretation Comments Basophils # (Auto) (test code = 704-7) 0.0 0.0-0.1 [facility] CampusFluoroscopic procedure less than one hour usqftxsx0854-75-72 04:15:00* Test Item Value Reference Range Interpretation Comments Absolute Immature Granulocyte (auto (virgen t code = Absolute Immature Granulocyte (auto) 0.01 0-0.1 [facility]er[facility] plasma sodium measurement (moles/volume)2019-12-06 04:15:00* Test Item Value Reference Range Interpretation Comments Sodium Level (test code = 2951-2) 139 136-145 [facility]er[facility] or plasma potassium measurement (moles/volume)2019-12-06 04:15:00* Test Item Value Reference Range Interpretation Comments Potassium Level (test code = 2823-3) 3.8 3.5-5.1 [facility]er[facility] or plasma chloride measurement (moles/volume)2019-12-06 04:15:00* Test Item Value Reference Range Interpretation Comments Chloride Level (test code = 2075-0) 108 98-107 [facility]er[facility] or plasma carbon dioxide, total measurement (moles/volume)2019-12-06 04:15:00* Test Item Value Reference Range Interpretation Comments Carbon Dioxide Level (test code = 2028-9) 25 22-29 [facility]er[facility] or plasma anion pyh1180-15-60 04:15:00* Test Item Value Reference Range Interpretation Comments Anion Gap (test code = 34403-0) 9.8 8-16 [facility]er[facility] urea nitrogen measurement (mass/volume)2019-12-06 04:15:00* Test Item Value Reference Range Interpretation Comments Blood Urea Nitrogen (test code = 3094-0) 20 7-26 [facility]er[facility] plasma creatinine measurement (mass/volume)2019-12-06 04:15:00* Test Item Value Reference Range Interpretation Comments Creatinine (test code = 2160-0) 0.97 0.72-1.25 [facility]er[facility] plasma urea nitrogen/creatinine mass uxbil1759-30-91 04:15:00* Test Item Value Reference Range Interpretation Comments BUN/Creatinine Ratio (test code = 3097-3) 21 6-25 [facility] CampusEstimated glomerular filtration rate (GFR) ggwihfzldrtkb3440-08-68 04:15:00* Test Item Value Reference Range Interpretation Comments Estimat Glomerular Filtration Rate (test code = 709791285) > 60 >60 Ranges were taken from the National Kidney Disease Education Program and the [facility] Kid[facility] Foundation literature.Reference ranges:60 or greater: Zezixd01-78 ( for 3 consecutive months): Chronic kidney disease 15 or less: Kidney failureThe Hospitals of [facility] CampusGlucose rznscjttqqs6006-63-28 04:15:00* Test Item Value Reference Range Interpretation Comments Glucose Level (test code = WAM9823) 83 74-118 [facility]er[facility] or plasma calcium measurement (mass/volume)2019-12-06 04:15:00* Test Item Value Reference Range Interpretation Comments Calcium Level (test code = 07953-9) 7.8 8.4-10.2 [facility]er[facility] or plasma total bilirubin measurement (mass/volume)2019-12-06 04:15:00* Test Item Value Reference Range Interpretation Comments Total Bilirubin (test code = 1975-2) 0.6 0.2-1.2 [facility] CampusFluoroscopic procedure less than one hour ppolzbnu5729-42-08 04:15:00* Test Item Value Reference Range Interpretation Comments Aspartate Amino Transf (AST/SGOT) (test code = Aspartate Amino Transf (AST/SGOT)) 24 5-34 [facility]er[facility] plasma alanine aminotransferase measurement (enzymatic activity/volume)2019-12-06 04:15:00* Test Item Value Reference Range Interpretation Comments Alanine Aminotransferase (ALT/SGPT) (test code = 1742-6) 23 0-55 [facility]er[facility] protein measurement (mass/volume)2019-12-06 04:15:00* Test Item Value Reference Range Interpretation Comments Total Protein (test code = 2885-2) 6.1 6.5-8.1 [facility]er[facility] plasma albumin measurement (mass/volume)2019-12-06 04:15:00* Test Item Value Reference Range Interpretation Comments Albumin (test code = 1751-7) 2.7 3.5-5.0 [facility] CampusPlasma globulin measurement (mass/volume) 2019-12-06 04:15:00* Test Item Value Reference Range Interpretation Comments Globulin (test code = 95657-1) 3.4 2.3-3.5 [facility] albumin/globulin mass zgjho4772-69-10 04:15:00* Test Item Value Reference Range Interpretation Comments Albumin/Globulin Ratio (test code = 1759-0) 0.8 0.8-2.0 [facility]er[facility] or plasma alkaline phosphatase measurement (enzymatic activity/volume)2019-12-06 04:15:00* Test Item Value Reference Range Interpretation Comments Alkaline Phosphatase (test code = 6768-6) 83 40-150 [facility] CampusUrine color swpoinlivuamb0207-85-47 14:00:00* Test Item Value Reference Range Interpretation Comments Urine Color (test code = 5778-6) YELLOW YELLOW [facility] CampusUrine kkknqzm7648-85-29 14:00:00* Test Item Value Reference Range Interpretation Comments Urine Clarity (test code = 03726-7) SL CLOUDY CLEAR [facility] Hospitalpecific gravity of Urine by Test strip 2019-12-05 14:00:00* Test Item Value Reference Range Interpretation Comments Urine Specific [employer] (test code = 5811-5) 1.025 1.010-1.02 5 [facility]Urine pH measurement by automated test nexht9720-36-06 14:00:00* Test Item Value Reference Range Interpretation Comments Urine pH (test code = 35842-1) 6 5-7 [facility] CampusUrine leukocyte esterase detection by aghwoyms6212-93-72 14:00:00* Test Item Value Reference Range Interpretation Comments Urine Leukocyte Esterase (test code = 5799-2) NEGATIVE NEGATIVE [facility] CampusUrine nitrite egksdhczz6610-05-24 14:00:00* Test Item Value Reference Range Interpretation Comments Urine Nitrite (test code = 59707-5) NEGATIVE NEGATIVE [facility]Urine protein measurement by test strip (mass/volume)2019-12-05 14:00:00* Test Item Value Reference Range Interpretation Comments Urine Protein (test code = 5804-0) 1+ NEGATIVE [facility] CampusUrine glucose mxykideum0767-71-09 14:00:00* Test Item Value Reference Range Interpretation Comments Urine Glucose (UA) (test code = 2349-9) NEGATIVE NEGATIVE [facility] CampusUrine ketones detection by automated test qcejg1425-14-88 14:00:00* Test Item Value Reference Range Interpretation Comments Urine Ketones (test code = 13543-4) NEGATIVE NEGATIVE [facility] CampusUrine urobilinogen measurement by test strip (mass/volume)2019-12-05 14:00:00* Test Item Value Reference Range Interpretation Comments Urine Urobilinogen (test code = 36783-3) 0.2 0.2-1 [facility] CampusUrine total bilirubin measurement (mass/volume)2019-12-05 14:00:00* Test Item Value Reference Range Interpretation Comments Urine Bilirubin (test code = 1978-6) NEGATIVE NEGATIVE [facility] CampusUrine erythrocytes ttowkqeym0804-79-54 14:00:00* Test Item Value Reference Range Interpretation Comments Urine Blood (test code = 47621-8) NEGATIVE NEGATIVE [facility] CampusAutomated urine sediment leukocyte count by microscopy (number/high power field)2019-12-05 14:00:00* Test Item Value Reference Range Interpretation Comments Urine WBC (test code = 5821-4) 0-5 0-5 [facility] CampusErythrocytes detection in urine sediment by light fovheorcjy1048-74-35 14:00:00* Test Item Value Reference Range Interpretation Comments Urine RBC (test code = 59639-4) 0-5 0-5 [facility] CampusBacteria detection in urine sediment by light xszrmrzczq9564-16-17 14:00:00* Test Item Value Reference Range Interpretation Comments Urine Bacteria (test code = 01824-1) RARE NONE [facility] CampusEpithelial cells detection in urine sediment by light bxdtmzkdrk7428-52-12 14:00:00* Test Item Value Reference Range Interpretation Comments Urine Epithelial Cells (test code = 44887-9) FEW NONE [facility] CampusUrine color owetdngigxqfr9979-06-09 14:00:00* Test Item Value Reference Range Interpretation Comments Urine Color (test code = 5778-6) YELLOW YELLOW [facility] CampusUrine pfyeayc3079-08-31 14:00:00* Test Item Value Reference Range Interpretation Comments Urine Clarity (test code = 90509-9) SL CLOUDY CLEAR [facility]pecific gravity of Urine by Test strip 2019-12-05 14:00:00* Test Item Value Reference Range Interpretation Comments Urine Specific [employer] (test code = 5811-5) 1.025 1.010-1.02 5 [facility] pH measurement by automated test wvmqc3794-50-09 14:00:00* Test Item Value Reference Range Interpretation Comments Urine pH (test code = 41162-8) 6 5-7 [facility] CampusUrine leukocyte esterase detection by ppoocdoj6806-74-52 14:00:00* Test Item Value Reference Range Interpretation Comments Urine Leukocyte Esterase (test code = 5799-2) NEGATIVE NEGATIVE [facility] CampusUrine nitrite wlmbfxkkd3473-98-94 14:00:00* Test Item Value Reference Range Interpretation Comments Urine Nitrite (test code = 49773-2) NEGATIVE NEGATIVE [facility]Urine protein measurement by test strip (mass/volume)2019-12-05 14:00:00* Test Item Value Reference Range Interpretation Comments Urine Protein (test code = 5804-0) 1+ NEGATIVE [facility] CampusUrine glucose jidinkyey8982-77-37 14:00:00* Test Item Value Reference Range Interpretation Comments Urine Glucose (UA) (test code = 2349-9) NEGATIVE NEGATIVE [facility] CampusUrine ketones detection by automated test dvoqc0798-84-66 14:00:00* Test Item Value Reference Range Interpretation Comments Urine Ketones (test code = 10144-1) NEGATIVE NEGATIVE [facility] CampusUrine urobilinogen measurement by test strip (mass/volume)2019-12-05 14:00:00* Test Item Value Reference Range Interpretation Comments Urine Urobilinogen (test code = 13199-2) 0.2 0.2-1 [facility] CampusUrine total bilirubin measurement (mass/volume)2019-12-05 14:00:00* Test Item Value Reference Range Interpretation Comments Urine Bilirubin (test code = 1978-6) NEGATIVE NEGATIVE [facility] CampusUrine erythrocytes inlwlfeok8597-00-69 14:00:00* Test Item Value Reference Range Interpretation Comments Urine Blood (test code = 32013-3) NEGATIVE NEGATIVE [facility] CampusAutomated urine sediment leukocyte count by microscopy (number/high power field)2019-12-05 14:00:00* Test Item Value Reference Range Interpretation Comments Urine WBC (test code = 5821-4) 0-5 0-5 [facility] CampusErythrocytes detection in urine sediment by light hwtywjkoaf6059-95-26 14:00:00* Test Item Value Reference Range Interpretation Comments Urine RBC (test code = 42908-1) 0-5 0-5 [facility] CampusBacteria detection in urine sediment by light woygqjjdrw5488-96-60 14:00:00* Test Item Value Reference Range Interpretation Comments Urine Bacteria (test code = 14266-9) RARE NONE [facility] CampusEpithelial cells detection in urine sediment by light zprbvbpdhn9971-97-83 14:00:00* Test Item Value Reference Range Interpretation Comments Urine Epithelial Cells (test code = 73189-5) FEW NONE [facility] SINGLE (PORTABLE)2019-12-05 07:41:00 [facility] [address] [address] Patient Name: TERESA WARD MR #: [id number] : 1955 Age/Sex: 64/M Req #: [id number] Adm Physician: ROBERT MENDOZA MD Ordered by: YANE LUTHER MD Report #: [id number] Location: ICU Room/Bed: ICU [facility] Procedure: [id number] DX/CHEST SINGLE (P ORTABLE) Exam Date: 12/05/19 Exam Time: 0708 REPORT STATUS: Signed EXAMINATION: [facility] SINGLE (PORTABLE) INDICATION: CHF. [...] Level (test code = 2571-8) 75 0-149 [facility] cholesterol measurement (mass/volume)2019-12-05 04:25:00* Test Item Value Reference Range Interpretation Comments Cholesterol Level (test code = 2093-3) 89 0-199 Less than 200 mg/dL Low Nwdv674 - 239 mg/dL Borderline Cpes803 m g/dl and greater High Risk [facility] cholesterol in LDL measurement (mass/volume) 2019-12-05 04:25:00* Test Item Value Reference Range Interpretation Comments LDL Cholesterol (test code = 2089-1) 33 60-130 [facility] cholesterol in HDL measurement (mass/volume)2019-12-05 04:25:00* Test Item Value Reference Range Interpretation Comments HDL Cholesterol (test code = 2085-9) 41 40-60 [facility] total cholesterol/cholesterol in HDL mass kbhlw1944-16-64 04:25:00* Test Item Value Reference Range Interpretation Comments Cholesterol/HDL Ratio (test code = 9830-1) 2.2 3.9-4.7 [facility] triglyceride measurement (mass/volume)2019-12-05 04:25:00* Test Item Value Reference Range Interpretation Comments Triglycerides Level (test code = 2571-8) 75 0-149 [facility]er[facility] cholesterol measurement (mass/volume)2019-12-05 04:25:00* Test Item Value Reference Range Interpretation Comments Cholesterol Level (test code = 2093-3) 89 0-199 Less than 200 mg/dL Low Wyfx913 - 239 mg/dL Borderline Jdjx041 m g/dl and greater High Risk [facility] cholesterol in LDL measurement (mass/volume) 2019-12-05 04:25:00* Test Item Value Reference Range Interpretation Comments LDL Cholesterol (test code = 2089-1) 33 60-130 [facility] cholesterol in HDL measurement (mass/volume)2019-12-05 04:25:00* Test Item Value Reference Range Interpretation Comments HDL Cholesterol (test code = 2085-9) 41 40-60 [facility] total cholesterol/cholesterol in HDL mass wbtyj5829-82-23 04:25:00* Test Item Value Reference Range Interpretation Comments Cholesterol/HDL Ratio (test code = 9830-1) 2.2 3.9-4.7 [facility]er[facility] or plasma creatine kinase measurement (enzymatic activity/volume)2019-12-04 21:25:00* Test Item Value Reference Range Interpretation Comments Creatine Kinase (test code = 2157-6) 93 30-200 [facility]er[facility] plasma creatine kinase MB measurement (mass/volume)2019-12-04 21:25:00* Test Item Value Reference Range Interpretation Comments Creatine Kinase MB (test code = 18460-6) 2.40 0-5.0 [facility] CampusTroponin I measurement by highly sensitive enzyme myasuplkscf6823-09-45 21:25:00* Test Item Value Reference Range Interpretation Comments Troponin I (test code = 24784-4) 0.294 0-0.300 [facility] creatine kinase measurement (enzymatic activity/volume)2019-12-04 21:25:00* Test Item Value Reference Range Interpretation Comments Creatine Kinase (test code = 2157-6) 93 30-200 [facility]er[facility] plasma creatine kinase MB measurement (mass/volume)2019-12-04 21:25:00* Test Item Value Reference Range Interpretation Comments Creatine Kinase MB (test code = 37932-5) 2.40 0-5.0 [facility] CampusTroponin I measurement by highly sensitive enzyme tlmkebbcrun1117-78-38 21:25:00* Test Item Value Reference Range Interpretation Comments Troponin I (test code = 27889-5) 0.294 0-0.300 [facility] CampusFluoroscopic procedure less than one hour jowxkgqj1701-96-04 10:20:00* Test Item Value Reference Range Interpretation Comments Lactic Acid Level (test code = Lactic Acid Level) 2.0 0.5- 2.0 [facility] CampusBlood nwmwsyr8258-03-45 10:20:00* Test Item Value Reference Range Interpretation Comments Blood Culture (test code = 19949099) NO GROWTH AFTER 48 HOURS [facility] CampusFluoroscopic procedure less than one hour mlopxslo6463-29-13 10:20:00* Test Item Value Reference Range Interpretation Comments Lactic Acid Level (test code = Lactic Acid Level) 2.0 0.5- 2.0 [facility] CampusBlood cujcwhj6390-22-36 10:20:00* Test Item Value Reference Range Interpretation Comments Blood Culture (test code = 02867438) NO GROWTH AFTER 72 HOURS [facility] CampusCHES SINGLE (PORTABLE)2019-12-04 09:24:00 [place] [address] Patient Name: TERESA WARD MR #: [id number] : 1955 Age/Sex: 64/M Req #: [id number] Adm Physician: Ordered by: FRANK DOMINGUEZ MD Report #: [id number] Location: ER Room/Bed: Procedure: DX/CHEST SINGLE (PORTABLE) [...] By: CADEN on 12/04/19938 COPY TO: FRANK DOMINGUEZ MD Serum or plasma magnesium measurement (mass/volume)2019-12-04 08:20:00* Test Item Value Reference Range Interpretation Comments Magnesium Level (test code = 92820-5) 1.5 1.3-2.1 [facility]Mat2661-85-67 08:20:00* Test Item Value Reference Range Interpretation Comments B-Type Natriuretic Peptide (test code = 23963-8) 108.0 0-100 [facility] magnesium measurement (mass/volume)2019-12-04 08:20:00* Test Item Value Reference Range Interpretation Comments Magnesium Level (test code = 40277-8) 1.5 1.3-2.1 [facility]-eUxy7608-87-72 08:20:00* Test Item Value Reference Range Interpretation Comments B-Type Natriuretic Peptide (test code = 82169-2) 108.0 0-100 [facility]LE ([facility])2019-11-26 19:02:00 [place] [address] Patient Name: TERESA WARD MR #: [id number] : 1955 Age/Sex: 64/M Req #: [id number] Adm Physician: JASON GIL MD Ordered by: CLOVER AGUERO MD Report #: [id number] Location: MED/SURG Room/Bed: [facility] [place] Procedure: [id number] DX/CHEST SING LE (PORTABLE) Exam Date: 11/26/19 [...] bony abnormal ities. Signed by: Dr. Jas rBay M.D. on 11/26/2019 7:04 PM D ictated By: JAS BRAY MD 03 COPY TO: CLOVER DUMONT MD Serum or plasma triglyceride measurement (mass/volume) 2019-11-26 03:15:00* Test Item Value Reference Range Interpretation Comments Triglycerides Level (test code = 2571-8) 93 0-149 [facility] cholesterol measurement (mass/volume)2019-11-26 03:15:00* Test Item Value Reference Range Interpretation Comments Cholesterol Level (test code = 2093-3) 91 0-199 Less than 200 mg/dL Low Qgkd955 - 239 mg/dL Borderline Zeeh788 m g/dl and greater High Risk [facility] cholesterol in LDL measurement (mass/volume) 2019-11-26 03:15:00* Test Item Value Reference Range Interpretation Comments LDL Cholesterol (test code = 2089-1) 33 60-130 [facility]er[facility] cholesterol in HDL measurement (mass/volume)2019-11-26 03:15:00* Test Item Value Reference Range Interpretation Comments HDL Cholesterol (test code = 2085-9) 39 40-60 [facility]er[facility] plasma total cholesterol/cholesterol in HDL mass nwzag0832-11-66 03:15:00* Test Item Value Reference Range Interpretation Comments Cholesterol/HDL Ratio (test code = 9830-1) 2.3 3.9-4.7 [facility]er[facility] or plasma creatine kinase measurement (enzymatic activity/volume)2019-11-26 03:15:00* Test Item Value Reference Range Interpretation Comments Creatine Kinase (test code = 2157-6) 322 30-200 [facility]er[facility] or plasma creatine kinase MB measurement (mass/volume)2019-11-26 03:15:00* Test Item Value Reference Range Interpretation Comments Creatine Kinase MB (test code = 67770-8) 1.70 0-5.0 [facility] CampusTroponin I measurement by highly sensitive enzyme zwdzkshhsab9460-21-72 03:15:00* Test Item Value Reference Range Interpretation Comments Troponin I (test code = 64634-6) 0.020 0-0.300 [facility] CampusFluoroscopic procedure less than one hour kernlelj5264-12-54 15:46:00* Test Item Value Reference Range Interpretation [...] complexity tests.Testing performed by [facility] [address] [phone] Director: Guy Berkowitz M.D.[facility] # [id number] [facility] Fluoroscopic procedure less than one hour loddoizi5506-71-67 15:46:00* Test Item Value Reference Range Interpretation [...] complexity tests.Testing performed by [facility] [address] [phone] Director: Guy Berkowitz M.D.CLIA # [id number] [facility] Fluoroscopic procedure less than one hour cemzbdyp9562-18-04 15:46:00* Test Item Value Reference Range Interpretation [...] complexity tests.Testing performed by [facility] [address] [place], [place] [phone] Director: Guy Berkowitz M.D.CLIA # [id number] [facility] SINGLE (PORTABLE)2019-11-25 11:58:00 [place] [address] Patient Name: TERESA WARD MR #: [id number] : 1955 Age/Sex: 64/M Req #: [id number] Adm Physician: Ordered by: KORY CODY DO Report #: [id number] Location: ER Room/Bed: Procedure: [id number] DX/CHEST SINGLE (PORTABLE) Exam Date: 11/25/19 Exam [...] Count (test code = 6690-2) 5.98 4.8-10.8 [facility]Blood erythrocytes automated count (number/volume)2019-11-25 11:30:00* Test Item Value Reference Range Interpretation Comments Red Blood Count (test code = 789-8) 4.26 4.3-5.7 [facility]Blood hemoglobin measurement (moles/volume)2019-11-25 11:30:00* Test Item Value Reference Range Interpretation Comments Hemoglobin (test code = 63974-3) 13.1 14.0-18.0 [facility] CampusAutomated blood hematocrit (volume fraction)2019-11-25 11:30:00* Test Item Value Reference Range Interpretation Comments Hematocrit (test code = 4544-3) 40.6 38.2-49.6 [facility] CampusAutomated erythrocyte mean corpuscular qhjvis0787-22-61 11:30:00* Test Item Value Reference Range Interpretation Comments Mean Corpuscular Volume (test code = 787-2) 95.3 81-99 [facility] CampusAutomated erythrocyte mean corpuscular hemoglobin (mass per erythrocyte)2019-11-25 11:30:00* Test Item Value Reference Range Interpretation Comments Mean Corpuscular Hemoglobin (test code = 785-6) 30.8 28-32 [facility] erythrocyte mean corpuscular hemoglobin concentration measurement (mass/volume)2019-11-25 11:30:00* Test Item Value Reference Range Interpretation Comments Mean Corpuscular Hemoglobin Concent (test code = 786-4) 32.3 31-35 [facility] CampusRDW CkdBe-Pxc4715-94-21 11:30:00* Test Item Value Reference Range Interpretation Comments Red Cell Distribution Width (test code = 96215-5) 13.8 11.7 -14.4 [facility] platelet count (count/volume)2019-11-25 11:30:00* Test Item Value Reference Range Interpretation Comments Platelet Count (test code = 777-3) 133 140-360 [facility]ed blood segmented neutrophil count as percentage of total udanrjinqo4828-59-84 11:30:00* Test Item Value Reference Range Interpretation Comments Neutrophils (%) (Auto) (test code = 82299-7) 66.0 38.7-80.0 [facility] CampusAutformerly [facility]ed [facility] lymphocyte count as percentage ot total hcfywgyjgj1571-60-31 11:30:00* Test Item Value Reference Range Interpretation Comments Lymphocytes (%) (Auto) (test code = 736-9) 23.4 18.0-39.1 [facility] CampusAutformerly [facility]ed [facility] monocyte count as percentage of total ddsuxzgbmo3357-45-36 11:30:00* Test Item Value Reference Range Interpretation Comments Monocytes (%) (Auto) (test code = 5905-5) 7.7 4.4-11.3 [facility] CampusAutomated blood eosinophil count as percentage of total imivptyytq6409-10-42 11:30:00* Test Item Value Reference Range Interpretation Comments Eosinophils (%) (Auto) (test code = 713-8) 2.2 0.0-6.0 [facility] CampusAutomated blood basophil count as percentage of total axloalsjha1317-59-66 11:30:00* Test Item Value Reference Range Interpretation Comments Basophils (%) (Auto) (test code = 706-2) 0.5 0.0-1.0 [facility] CampusFluoroscopic procedure less than one hour rpcdpbwo7818-89-81 11:30:00* Test Item Value Reference Range Interpretation Comments IM GRANULOCYTES % (test code = IM GRANULOCYTES %) 0.2 0.0- 1.0 [facility] CampusAutomated blood neutrophil count 2019-11-25 11:30:00* Test Item Value Reference Range Interpretation Comments Neutrophils # (Auto) (test code = 751-8) 4.0 2.1-6.9 [facility]Blood lymphocytes count (number/volume) 2019-11-25 11:30:00* Test Item Value Reference Range Interpretation Comments Lymphocytes # (Auto) (test code = 38622-1) 1.4 1.0-3.2 [facility] CampusBlood monocytes automated count (number/volume)2019-11-25 11:30:00* Test Item Value Reference Range Interpretation Comments Monocytes # (Auto) (test code = 742-7) 0.5 0.2-0.8 [facility] CampusAutomated blood eosinophil count 2019-11-25 11:30:00* Test Item Value Reference Range Interpretation Comments Eosinophils # (Auto) (test code = 711-2) 0.1 0.0-0.4 [facility] CampusAutomated blood basophil count (count/volume)2019-11-25 11:30:00* Test Item Value Reference Range Interpretation Comments Basophils # (Auto) (test code = 704-7) 0.0 0.0-0.1 [facility] CampusFluoroscopic procedure less than one hour fsmiyfuk6609-13-72 11:30:00* Test Item Value Reference Range Interpretation Comments Absolute Immature Granulocyte (auto (virgen t code = Absolute Immature Granulocyte (auto) 0.01 0-0.1 [facility] CampusUrine color omzojvynazdoo3138-40-16 11:30:00* Test Item Value Reference Range Interpretation Comments Urine Color (test code = 5778-6) YELLOW YELLOW [facility] CampusUrine jhefvxh0228-15-36 11:30:00* Test Item Value Reference Range Interpretation Comments Urine Clarity (test code = 92229-8) SL CLOUDY CLEAR [facility] Hospitalpecific gravity of Urine by Test strip 2019-11-25 11:30:00* Test Item Value Reference Range Interpretation Comments Urine Specific [employer] (test code = 5811-5) 1.020 1.010-1.02 5 [facility] CampusUrine pH measurement by automated test lahfn2451-08-31 11:30:00* Test Item Value Reference Range Interpretation Comments Urine pH (test code = 29843-8) 5.5 5-7 [facility] CampusUrine leukocyte esterase detection by qxduvdvs8483-59-72 11:30:00* Test Item Value Reference Range Interpretation Comments Urine Leukocyte Esterase (test code = 5799-2) NEGATIVE NEGATIVE [facility] CampusUrine nitrite cmmstlizh3884-44-97 11:30:00* Test Item Value Reference Range Interpretation Comments Urine Nitrite (test code = 07057-4) NEGATIVE NEGATIVE [facility] CampusUrine protein measurement by test strip (mass/volume)2019-11-25 11:30:00* Test Item Value Reference Range Interpretation Comments Urine Protein (test code = 5804-0) 2+ NEGATIVE [facility] CampusUrine glucose fxusdbwph6875-68-84 11:30:00* Test Item Value Reference Range Interpretation Comments Urine Glucose (UA) (test code = 2349-9) NEGATIVE NEGATIVE [facility] CampusUrine ketones detection by automated test nyqvt2973-10-07 11:30:00* Test Item Value Reference Range Interpretation Comments Urine Ketones (test code = 52364-0) NEGATIVE NEGATIVE [facility] CampusUrine urobilinogen measurement by test strip (mass/volume)2019-11-25 11:30:00* Test Item Value Reference Range Interpretation Comments Urine Urobilinogen (test code = 78088-0) 0.2 0.2-1 [facility] CampusUrine total bilirubin measurement (mass/volume)2019-11-25 11:30:00* Test Item Value Reference Range Interpretation Comments Urine Bilirubin (test code = 1978-6) NEGATIVE NEGATIVE [facility] CampusUrine erythrocytes nvocguuqy3068-21-49 11:30:00* Test Item Value Reference Range Interpretation Comments Urine Blood (test code = 19284-1) TRACE NEGATIVE [facility] CampusAutomated urine sediment leukocyte count by microscopy (number/high power field)2019-11-25 11:30:00* Test Item Value Reference Range Interpretation Comments Urine WBC (test code = 5821-4) NONE 0-5 [facility] CampusErythrocytes detection in urine sediment by light hirttnmeai8256-86-79 11:30:00* Test Item Value Reference Range Interpretation Comments Urine RBC (test code = 21159-4) 0-5 0-5 [facility] CampusBacteria detection in urine sediment by light umteguebet0369-61-66 11:30:00* Test Item Value Reference Range Interpretation Comments Urine Bacteria (test code = 03704-0) MODERATE NONE [facility] CampusEpithelial cells detection in urine sediment by light hchppxemyy6131-59-35 11:30:00* Test Item Value Reference Range Interpretation Comments Urine Epithelial Cells (test code = 05194-1) RARE NONE [facility] CampusHyaline casts detection in urine sediment by light sybmonhyec5879-87-27 11:30:00* Test Item Value Reference Range Interpretation Comments Urine Hyaline Casts (test code = 00436-0) 6-10 0-1 [facility]er[facility] or plasma sodium measurement (moles/volume)2019-11-25 11:30:00* Test Item Value Reference Range Interpretation Comments Sodium Level (test code = 2951-2) 142 136-145 [facility] Hospitalerum or plasma potassium measurement (moles/volume)2019-11-25 11:30:00* Test Item Value Reference Range Interpretation Comments Potassium Level (test code = 2823-3) 3.8 3.5-5.1 [facility] Hospitalerum or plasma chloride measurement (moles/volume)2019-11-25 11:30:00* Test Item Value Reference Range Interpretation Comments Chloride Level (test code = 2075-0) 102 98-107 [facility] Hospitalerum or plasma carbon dioxide, total measurement (moles/volume)2019-11-25 11:30:00* Test Item Value Reference Range Interpretation Comments Carbon Dioxide Level (test code = 2028-9) 27 22-29 [facility] Hospitalerum or plasma anion tcz1654-85-98 11:30:00* Test Item Value Reference Range Interpretation Comments Anion Gap (test code = 42789-9) 16.8 8-16 [facility]er[facility] or plasma urea nitrogen measurement (mass/volume)2019-11-25 11:30:00* Test Item Value Reference Range Interpretation Comments Blood Urea Nitrogen (test code = 3094-0) 21 7-26 [facility] Hospitaler[facility] or plasma creatinine measurement (mass/volume)2019-11-25 11:30:00* Test Item Value Reference Range Interpretation Comments Creatinine (test code = 2160-0) 1.26 0.72-1.25 [facility] Hospitalerum or plasma urea nitrogen/creatinine mass dmxqj1354-37-78 11:30:00* Test Item Value Reference Range Interpretation Comments BUN/Creatinine Ratio (test code = 3097-3) 17 6-25 [facility] CampusEstimated glomerular filtration rate (GFR) xwpjsqxhxxkvz2314-31-60 11:30:00* Test Item Value Reference Range Interpretation Comments Estimat Glomerular Filtration Rate (test code = 639491351) 57 >60 Ranges were taken from the National Kidney Disease Education Program and the [facility] Kidney Foundation literature.Reference ranges:60 or greater: Laohqy67-52 ( for 3 consecutive months): Chronic kidney disease 15 or less: Kidney failureThe Hospitals of Providence Sierra CampusGlucose brmhzbrbdhz3140-81-37 11:30:00* Test Item Value Reference Range Interpretation Comments Glucose Level (test code = FWW0109) 101 74-118 [facility] Hospitaler[facility] or plasma calcium measurement (mass/volume)2019-11-25 11:30:00* Test Item Value Reference Range Interpretation Comments Calcium Level (test code = 35718-8) 9.6 8.4-10.2 [facility] Hospitalerum or plasma total bilirubin measurement (mass/volume)2019-11-25 11:30:00* Test Item Value Reference Range Interpretation Comments Total Bilirubin (test code = 1975-2) 1.2 0.2-1.2 [facility] CampusFluoroscopic procedure less than one hour gogvstmy5661-61-29 11:30:00* Test Item Value Reference Range Interpretation Comments Aspartate Amino Transf (AST/SGOT) (test code = Aspartate Amino Transf (AST/SGOT)) 33 5-34 [facility] Hospitalerum or plasma alanine aminotransferase measurement (enzymatic activity/volume)2019-11-25 11:30:00* Test Item Value Reference Range Interpretation Comments Alanine Aminotransferase (ALT/SGPT) (test code = 1742-6) 28 0-55 [facility] Hospitalerum or plasma protein measurement (mass/volume)2019-11-25 11:30:00* Test Item Value Reference Range Interpretation Comments Total Protein (test code = 2885-2) 8.2 6.5-8.1 [facility] Hospitalerum or plasma albumin measurement (mass/volume)2019-11-25 11:30:00* Test Item Value Reference Range Interpretation Comments Albumin (test code = 1751-7) 3.8 3.5-5.0 [facility] CampusPlasma globulin measurement (mass/volume) 2019-11-25 11:30:00* Test Item Value Reference Range Interpretation Comments Globulin (test code = 48252-7) 4.4 2.3-3.5 [facility]er[facility] or plasma albumin/globulin mass wgifu1047-66-40 11:30:00* Test Item Value Reference Range Interpretation Comments Albumin/Globulin Ratio (test code = 1759-0) 0.9 0.8-2.0 [facility] Hospitalerum or plasma alkaline phosphatase measurement (enzymatic activity/volume)2019-11-25 11:30:00* Test Item Value Reference Range Interpretation Comments Alkaline Phosphatase (test code = 6768-6) 107 40-150 [facility] CampusBNP Bps-zEpv4471-42-21 11:30:00* Test Item Value Reference Range Interpretation Comments B-Type Natriuretic Peptide (test code = 29954-1) 110.8 0-100 [facility] CampusHyaline casts detection in urine sediment by light ohbstmerkt6942-07-31 11:30:00* Test Item Value Reference Range Interpretation Comments Urine Hyaline Casts (test code = 41208-9) 6-10 0-1 [facility] CampusHyaline casts detection in urine sediment by light uqwzdadyev3473-87-63 11:30:00* Test Item Value Reference Range Interpretation Comments Urine Hyaline Casts (test code = 77794-7) 6-10 0-1 [facility]- XR HIP W/PEL UNI 2+V ZV2419-76-75 10:29:00 Name: TERESA WARD [facility] : 1955 Age/S:63 /M [address] [facility] Unit#:[id number] Loc: [place] [address] Phys: Rickey Patiño MD Dis Date: PHONE #: [phone] Status: REG ER FAX #: [phone] Exam Date: 01/24/2019 Reason: trauma, pain EXAMS: CPT CODE: [id number] XR HIP W/PEL UNI 2+[place] [address] CLINICAL HISTORY: trauma, pain TECHNIQUE: Neutral and [...] (1029) KoryLDP1 Orig Print D/T: S: 01/24/2019 (1870) PAGE 1 Signed Report - XR KNEE 3 V KM1203-32-66 10:29:00 Name: TERESA WARD [facility] : 1955 Age/S:63 /M [address] [facility] Unit#:[id number] Loc: [place] [address] Phys: Rickey Patiño MD Dis Date: PHONE #: [phone] Status: REG ER FAX #: [phone] Exam Date: 01/24/2019 Re ason: fall EXAMS: CPT CODE: [id number] XR KNEE 3 [place] [address] CLINICAL HISTORY: Pain status post f all [...] (1029) BinaP1 Orig Print D/T: S: 01/24/2019 (4713) PAGE 1 Signed Report - US ABDOMEN COMPLETE 2018-12-25 10:55:00 Name: TERESA WARD [facility] : 1955 Age/S: 63 / M [address] Unit #: [id number] Loc: [place] [address] Phys: Davida Sanchez MD Acct: [id number] Dis Date: Status: REG CLI PHONE #: [phone] Exam Date: 12/25/2018 1018 FAX #: [phone] Reason: CIRRHOSIS EXAMS: CPT CODE: [id number] US ABDOMEN COMPLETE 72428 TECHNIQUE - US ABDOMEN COMPLETE . COMPARISON: [...] PAGE 1 Signed Report (CONTINUED) [facility] 1955 Age[facility]S: 63 / M [address] Unit #: [id number] Loc: [place] [address] Phys: Davida Sanchez MD Acct: [id number] Dis Date: Status: REG CLI PHONE #: [phone] Exam Date: 12/25/2018 1018 FAX #: [phone] Reason: CIRRHOSIS EXAMS: CPT CODE: [id number] US ABDOMEN COMPLETE 69860 < Continued> CC: Davida Sanchez MD; Rito Barnes Technologist: EDWARD DYE RT(R),RDMS Trnflb Date/Time: 12/25/2018 (3984) [email or web address] Orig Print D/T: S: 12/25/2018 (4605) Probe: PAGE 2 Signed Report CHEM PANEL 2018-10-02 12:57:0063[facility]annCHEM WOWNN3984-95-49 12:57:001.2[facility] KwvkqueLBKIQPFUZUOP9003-38-91 14:17:0012.3[facility] HyvnnlmZISMGDVKZKAF2303-45-52 14:17:0081[facility] OcmtgncFPGOWGCUHWQA8150-01-09 14:17:000.98[facility] CMXGUQVEBOQX4222-83-15 14:17:0021[facility] VcumuhnPTXOCXNANIQR0587-62-29 14:17:00 87[facility] BkrukjsGKEQFLRIBQEK2456-37-95 14:17:25568Kbwmpbsl HermannELECTROLYTES 2017-11-19 14:17:004.3[facility] VdlowdsMNLXSNWADLEW5343-11-36 14:17:0028[facility] DfiruvvKZCNVMXXGSGC9931-30-48 14:17:54846Wzjvgpyb ExamvqlTENMVCCCBYYX4185-95-23 14:17:008.6[facility] ZwvjfcnVARXBZSXHZ5985-47-28 14:17:00* Test Item Value Reference Range Interpretation Comments INR (test code = INR) 1.00 1 0.85-1.17 [facility] JkugylyAIGBDNSLJJ8731-56-98 14:17:00* Test Item Value Reference Range Interpretation Comments PTT (test code = PTT) 30.6 s 22.9-35.8 [facility] TxjudmqYCJQBCLJCR9919-96-29 14:17:00* Test Item Value Reference Range Interpretation Comments PT (test code = PT) 13.2 s 12.0-14.7 [facility] PmboihrNXSASVXUYA5157-66-20 14:17:000.2[facility]annHEMATOLOGY 2017-11-19 14:17:000.4[facility] BefbzkoNDHYYSLJEM6558-93-17 14:17:000.8[facility] AmhhgacDTIDDJSGQK8420-08-56 14:17:004.0[facility] IjjjdelXOXNNQXMJF8169-08-75 14:17:008.0[facility] PiczjnnMYAMZYSPFW3478-48-76 14:17:001.7[facility] FDWTQROWEZ9193-61-88 14:17:003.1[facility] VyuueytWMVZKZJDLU3210-98-72 14:17:00 30.6[facility] GmcfsxbESBKNFEZBJ5095-17-35 14:17:0056.6[facility] HermannHEMATOLOGY 2017-11-19 14:17:84918Axxvzxtl XakaojcBYZFFQECGR3864-74-25 14:17:007.6[facility] CldcvtuGMNBVJJSLM0297-75-96 14:17:0039.5[facility] DydtzsaUFNXWMHBVY2643-00-34 14:17:0014.5[facility] WdtbumlCTSFCWKGAZ9117-84-95 14:17:0031.9[facility] DVKIXNKDTZ5809-12-36 14:17:00* Test Item Value Reference Range Interpretation Comments MCH (test code = MCH) 29.1 pg 27.0-31.0 [facility] YfgkuhdQQORMLVZIO0719-86-63 14:17:0091.1[facility]annHEMATOLOGY 2017-11-19 14:17:0012.6[facility] XeapfnnQKKYHQKRAZ4084-37-53 14:17:004.33[facility] IijmvoqVJPLQFNCCZ7481-96-73 14:17:005.6[facility] HermannURINE AND JZRRD7413-68-44 14:17:00>182[facility] HermannURINE AND VUDZD7704-01-48 14:17:00Negative (11/19/17 9:17 AM)[facility] FFHON5076[facility]-71 14:17:005[facility] OWMLU9663-02-21 14:17:00Negative *NA*(11/19/17 9:17 AM)[facility] ZTJIG0148-80-74 14:17:00Large *ABN*(11/19/17 9:17 AM)[facility] VMONU7154-00-67 14:17:00Negative (11/19/17 9:17 AM)[facility] WLRTR4507-14-92 14:17:00Clear (11/19/17 9:17 AM)[facility] STOOL 2017-11-19 14:17:00* Test Item Value Reference Range Interpretation Comments UA Spec Grav (test code = UA Spec Grav) 1.017 1 [facility] MMBDR6075-31-62 14:17:00* Test Item Value Reference Range Interpretation Comments UA pH (test code = UA pH) 5.0 1 5.0-8.0 [facility] HermannCHEM NZFIR1642-28-94 22:47:0078[facility] PANEL 2017-09-10 22:47:97524Sjhdubpa [facility]annCHEM ULHEU7500-25-52 22:47:003.9[facility] QZTZA1579-87-28 22:47:52752Ntzqxtke HermannCHEM HRBVK1368-74-19 22:47:0028[facility] RXIZU4190-75-55 22:47:008.2[facility] EAZTF2415-41-20 22:47:001.02[facility]ann[facility] GHEMY3382-10-57 22:47:0020 [facility] HermannCHEM IEVID7840-02-03 22:47:95552Tzuexxru HermannCHEM PANEL 2017-09-10 22:47:0012.9[facility] MowwbseMMPVMEEJHQ3749-53-70 22:47:00* Test Item Value Reference Range Interpretation Comments INR (test code = INR) 1.05 1 0.85-1.17 [facility] ZtwedkyXXNXHOXDKO2674-36-96 22:47:00* Test Item Value Reference Range Interpretation Comments PT (test code = PT) 13.7 s 12.0-14.7 [facility]RxiazbkUPDTRRILKH9876-41-19 22:47:00* Test Item Value Reference Range Interpretation Comments PTT (test code = PTT) 33.7 s 22.9-35.8 [facility]lineTshbfrrQVIVOUKKPJ2608-12-69 22:47:0080.6[facility]ann[facility]MATOLOGY 2017-09-10 22:47:0011.1[facility] ZtqgoxdEKGEPYTOXV5631-51-14 22:47:006.5[facility] FkaqkupWQSINTKAPP1493-34-75 22:47:001.5[facility] WgvhwmcUQJVQQPUHG0202-36-99 22:47:000.1[facility] TrqloqyJUHWRFCZPE4186-52-32 22:47:000.4[facility] QPHDBECRFJ9111-66-44 22:47:000.8[facility] CxcmwjaAWUBUHEZJU6324-24-01 22:47:005.5 [facility] WfpkxjoVHTTQJOTRA5312-79-14 22:47:000.3[facility]annHEMATOLOGY 2017-09-10 22:47:00* Test Item Value Reference Range Interpretation Comments MCH (test code = MCH) 31.1 pg 27.0-31.0 [facility] VdekfgvKVNBPCDPSM6062-21-44 22:47:0095.1[facility]annHEMATOLOGY 2017-09-10 22:47:0031.2[facility] CglkaqzYFHOVHTAGP1486-76-41 22:47:0010.2[facility] RlpyhanNQBMOEYUVP9465-58-52 22:47:003.28[facility] LmyqwjlTRNDRVETUJ9251-82-43 22:47:006.8[facility] UsnlyfvTNFQIVVQKZ4136-50-58 22:47:006.5[facility] IEWXPITYAJ1645-81-85 22:47:70359Dtwzuhuv AfvswdjBJQTZCUBXT5252-15-89 22:47:00 14.7[facility] IxbkpkoXQAOKMVXRQ6614-32-25 22:47:0032.7[facility] GYJTS7464-67-28 22:47:00>182[facility] DUDMT1246-51-77 22:47:00 101[facility] HLANQ3025-88-35 22:47:004[facility] NMIGY9762-24-25 22:47:00Trace *ABN*(09/10/17 4:47 PM)[facility] FZRDH2870-11-56 22:47:00Negative (09/10/17 4:47 PM)[facility] STOOL 2017-09-10 22:47:00Marked *ABN*(09/10/17 4:47 PM)[facility] STOOL 2017-09-10 22:47:00* Test Item Value Reference Range Interpretation Comments UA Spec Grav (test code = UA Spec Grav) 1.018 1 [facility] RBTKR6275-26-75 22:47:00Yellow *NA*(09/10/17 4:47 PM) [facility] DUEKM8773-80-11 22:47:00* Test Item Value Reference Range Interpretation Comments UA pH (test code = UA pH) 5.0 1 5.0-8.0 [facility] FTMPA5804-06-61 22:47:00Negative *NA*(09/10/17 4:47 PM) [facility] FCSXR4512-98-27 22:47:00Large *ABN*(09/10/17 4:47 PM) [facility]annBLOOD BANK KXIQHOP7822-77-56 12:43:00Positive 1(09/02/17 6:43 AM) [facility] TvxgfqsABCZVYHWVSLS4664-46-66 12:43:0011.8[facility]annELECTROLYTES 2017-09-02 12:43:0084[facility] TnswwpxYNDOGTKSDPDU3179-68-65 12:43:008.4[facility] AroqqrgXQHAMKWSQFMQ5393-48-42 12:43:37337Bjjkohlv SvtqncyGQDYUQRIMSEQ8508-35-13 12:43:0026[facility] OfgimenUEHJLSYMFRWV7378-61-47 12:43:0013[facility] KZAUQCHVAYFL7961-87-39 12:43:000.96[facility] BrkbogvEYNXNIOFLMJN5111-95-49 12:43:0087[facility] LrpljhuSUFDYWTJIKAU5302-75-20 12:43:18397Enjostxt [place] LWWUHSJIFIQU6625-01-92 12:43:003.8[facility] UlqlzbcJFGUISRTCD9751-26-80 12:43:00 3.4[facility] VufsllsQHJOCPOVUN2799-30-49 12:43:001.4[facility]annHEMATOLOGY 2017-09-02 12:43:000.4[facility] QgnwktcUYNDCFBKVX3075-71-93 12:43:000.9[facility] IwrprarFVQHCBHVTN8983-14-95 12:43:003.9[facility] CgpvzvpPIZJYVJTPY2935-79-52 12:43:000.2[facility] HaputdgGNLMTSPJLE6772-48-19 12:43:0025.0[facility] HOBLKEAXRP2173-37-26 12:43:007.5[facility] NbnzqhqZGNSXBYDOH6592-55-96 12:43:00 62.7[facility] YivndwdZVAYNCHYQD1424-79-44 12:43:0032.9[facility]annHEMATOLOGY 2017-09-02 12:43:00* Test Item Value Reference Range Interpretation Comments MCH (test code = MCH) 31.3 pg 27.0-31.0 [facility] OcztlfxYBZZMREJJK9456-45-79 12:43:0094.9[facility]annHEMATOLOGY 2017-09-02 12:43:0039.6[facility] KizhkraHPVJLGIUVQ3970-44-90 12:43:0014.7[facility] AzvffudRKRCZTJJVH4852-60-20 12:43:007.1[facility] HrogvjgYFQBRFAZJT8378-73-35 12:43:08697Mtfqvvcd LpphpcqWEKZIRNMCB8482-40-02 12:43:0013.0[facility] ZOPVTUBBFV6384-92-45 12:43:004.17[facility] FbcxkziGOGGQOFLIE1995-64-33 12:43:00 5.4[facility] OkpapmcLQRGUQYTBR9095-18-44 12:43:00* Test Item Value Reference Range Interpretation Comments INR (test code = INR) 1.05 1 0.85-1.17 [facility] JuksspxSREDEQOYMA0088-25-42 12:43:00* Test Item Value Reference Range Interpretation Comments PT (test code = PT) 13.7 s 12.0-14.7 [facility] QPSLQ5336-49-20 12:06:00None Seen (09/02/17 6:06 AM) [facility] XNMVW5079-77-81 12:06:00Performed (09/02/17 6:06 AM) [facility] KBOJY0560-92-30 12:06:00Moderate *ABN*(09/02/17 6:06 AM)[facility] PAEMP5310-31-74 12:06:0015[facility] NWUXP8679-83-81 12:06:00* Test Item Value Reference Range Interpretation Comments UA pH (test code = UA pH) 7.0 1 5.0-8.0 [facility] YACLI0323-18-02 12:06:00Negative (09/02/17 6:06 AM) [facility] EYJMC7266-16-91 12:06:00Large *ABN*(09/02/17 6:06 AM) [facility] HLTJR5743-82-04 12:06:00Marked *ABN*(09/02/17 6:06 AM) [facility] DSTIT6576-86-53 12:06:00* Test Item Value Reference Range Interpretation Comments UA Spec Grav (test code = UA Spec Grav) 1.010 1 [facility] UNZJK9456-66-83 12:06:00Negative (09/02/17 6:06 AM) [facility] IIQXO5628-49-22 12:06:004.0[facility] UNNIV0357-05-87 12:06:00Positive *ABN*(09/02/17 6:06 AM)[facility] PMSLA2366-46-93 12:06:00Red *ABN*(09/02/17 6:06 AM)[facility]annCARDIAC IQAGJPN7820-29-71 23:06:00<0.02[facility]annCARDIAC HBLGZOB3107-14-00 23:06:00* Test Item Value Reference Range Interpretation Comments CK MB Index (test code = CK MB Index) 1.5 1 <=2.5 [facility]annCARDIAC REWSIBP0837-30-35 23:06:001.9[facility]annCARDIAC AHEKXCL8579-91-91 23:06:89255Qytcfbiv HermannCHEM BGDXN5006-35-06 23:06:0077 [facility]CHE[facility] QOCJW3111-91-25 23:06:007.9[facility]annCHEM PANEL 2017-08-15 23:06:0028[facility]annCHEM YORNK5284-11-41 23:06:003.2[facility]annCHEM VHJTL7187-26-14 23:06:008.0[facility]annCHEM SMKIU5644-22-85 23:06:65851Uxshbczq [facility]annCHEM TZDXI1464-08-50 23:06:45346Lgwdneaz [facility]annCHEM QRCEG9645-89-67 23:06:0025[facility]annCHE[facility] ZGSSH9214-73-65 23:06:0021 [facility]CHE[facility] BFAXM4238-57-99 23:06:00* Test Item Value Reference Range Interpretation Comments B/C Ratio (test code = B/C Ratio) 13 1 6-25 [facility] UBIXJ4586-38-68 23:06:0012.0[facility]annCHEM PANEL 2017-08-15 23:06:000.5[facility]annCHEM ODKOK2524-60-52 23:06:00* Test Item Value Reference Range Interpretation Comments A/G Ratio (test code = A/G Ratio) 0.7 1 0.7-1.6 [facility] HYVWN5924-55-15 23:06:004.8[facility]annCHEM PANEL 2017-08-15 23:06:001.03[facility]annCHEM JXMTC9855-54-55 23:06:0013[facility]annCHEM IARQI9939-82-10 23:06:004.0[facility]annCHEM ORWID3057-78-51 23:06:08731Siincvme HermannCHEM LTEOP2275-30-39 23:06:0078[facility] UZTHLEAYAP7470-55-62 23:06:000.6[facility] HdrwfeiPDVMHFMKGG9951-49-29 23:06:001.7 [facility] FbafmypCUGWZWXWSV9138-85-21 23:06:004.4[facility]annHEMATOLOGY 2017-08-15 23:06:0010.2[facility] GnbhxizJESHYYMVPQ8362-73-15 23:06:001.6[facility] IuwllaeJUGEPGHDHA8134-43-35 23:06:000.1[facility] KxfjhavZTALVFQWJN1500-77-10 23:06:000.7[facility] VjrehtxNLBCPHJEYC1066-88-14 23:06:0023.6[facility] VUWZXALKJP0814-09-01 23:06:0063.9[facility] ApjyzvfWNVLSNDADF6268-75-01 23:06:00* Test Item Value Reference Range Interpretation Comments MCH (test code = MCH) 31.6 pg 27.0-31.0 [facility] EziawkzJLIJPBBIFJ8077-33-75 23:06:0095.7[facility]annHEMATOLOGY 2017-08-15 23:06:0033.0[facility] DmfnpjlEZVGGEBNGV5914-73-98 23:06:007.2[facility] RqtzglbSOMOKJRUMU8800-61-32 23:06:0015.9[facility] WmksmqoUCGVJIIVHU8711-04-22 23:06:42132Ijedskqm NchbuobYXJUDKLXQU9234-22-92 23:06:0013.3[facility] SXXCQYGFSK9894-15-25 23:06:0040.2[facility] FkryiqpWZMZBRGQTK1469-96-83 23:06:00 4.20[facility] GgumfylVSQVUOBSVF8050-01-15 23:06:006.8[facility] YCCVC7907-31-71 22:59:003[facility] WIZHK1354-56-18 22:59:001 [facility] GBCAO6165-19-42 22:59:00Negative *NA*(08/15/17 4:59 PM) [facility] ZJMHI2371-73-41 22:59:00Negative (08/15/17 4:59 PM) [facility] KDQOT6575-32-93 22:59:00Negative (08/15/17 4:59 PM) [facility] KISRT1194-82-79 22:59:00Small *ABN*(08/15/17 4:59 PM) [facility] GPEMN3663-28-69 22:59:00* Test Item Value Reference Range Interpretation Comments UA pH (test code = UA pH) 6.0 1 5.0-8.0 [facility] RAZKW9298-97-10 22:59:00* Test Item Value Reference Range Interpretation Comments UA Spec Grav (test code = UA Spec Grav) 1.009 1 [facility] EQYOY5397-24-50 22:59:00Clear (08/15/17 4:59 PM)[facility]annCHE[facility] ABMWV8371-48-39 15:15:0091[facility]annCHEM KRIBJ1558-44-09 15:15:000.9[facility] VfnioehRONCTLKZVGOB3052-47-09 09:38:0010.9[facility] NMAAVIUTUFYS2354-31-99 09:38:0097[facility] ZbyugphLZGHWRLMXODR8064-19-79 09:38:00 8.1[facility] XmqxopgHOZLHCWYUJKI5112-05-35 09:38:0027[facility]annELECTROLYTES 2017-04-30 09:38:003.9[facility] FyuhmecGZTVQCEYGQSF5817-51-57 09:38:77454Zcaeidat BfapagzPYWEMPMXDYRD6732-33-03 09:38:03673Axgpmvfg KscyextEZOZUICJSPZC2767-68-41 09:38:0015[facility] DyjuynqAJSJMLWYWWBL2850-22-93 09:38:000.76[facility] BACYKLNKAWDZ7288-58-42 09:38:0084[facility] TvqkernQUBJVZYDDD1188-10-60 09:38:00 33.2[facility] JpxacswHITOJBXURF2163-28-31 09:38:00* Test Item Value Reference Range Interpretation Comments MCH (test code = MCH) 30.2 pg 27.0-31.0 [facility] GskpadwRPLSADKFHG8149-85-21 09:38:0090.9[facility]annHEMATOLOGY 2017-04-30 09:38:0034.4[facility] QvocjdcBIJDXVEZLO1645-64-52 09:38:007.0[facility] ZfmhhofADKUHKPKGK2809-02-28 09:38:65614Mviytiha AbauchoSWJSDGGCVF5530-69-09 09:38:0015.7[facility] LaqwuozVRRLBNWLTB8035-66-51 09:38:0011.4[facility] ZTAIBQLBWO4835-88-39 09:38:003.78[facility] BcodspmKAZSKCQEDZ1347-24-23 09:38:00 5.6[facility] FnyckzdOJHFQYPAMF4738-87-04 09:38:000.5[facility]annHEMATOLOGY 2017-04-30 09:38:000.2[facility] JllyejiXMDZXLHMTC5725-53-60 09:38:001.5[facility] PzyxzciLJHCNAACOF0164-87-94 09:38:008.9[facility] GiagteqRWDUGMRSOY3108-52-06 09:38:0026.3[facility] PkhsaoxYXLZMTODIJ4168-69-02 09:38:0059.6[facility] ZTDCSKEZDJ8645-13-85 09:38:003.3[facility] LwjrdrlGHSLOEZPSU1705-17-56 09:38:000.8 [facility] SemegapTVYKTDEBCJ1816-43-27 09:38:004.4[facility]annCHEM PANEL 2017-04-29 16:58:000.95[facility]annCHEM QPPJZ1612-48-36 16:58:0015[facility]annCHEM CQNTQ7687-46-22 16:58:0096[facility]annCHEM FIZPI3924-09-79 16:58:008.7[facility]annCHEM PAOWP3414-47-70 16:58:0030[facility]annCHEM ZBUJI9200-73-09 16:58:83508Lzxlvman HermannCHEM BVCUT8261-67-15 16:58:003.7 [facility]annCHE[facility] AGWGF1266-76-63 16:58:54093Eprdhtai HermannCHEM PANEL 2017-04-29 16:58:0085[facility]annCHEM ZDDCV1475-04-33 16:58:0010.7[facility] IvlubzvGMDFEGRHIA9710-18-74 16:58:0025.1[facility] DrpfmokCJUOJKPGMU0924-15-92 16:58:0064.2[facility] GkbnvbjVOLZMBFXYA8645-62-40 16:58:007.0[facility] SNGNUITOZY9971-47-52 16:58:000.9[facility] QjiakjnJZDZNGBMDA2352-25-78 16:58:003.9 [facility] AfqorsgLTMYWTQKCS1885-96-27 16:58:002.8[facility]annHEMATOLOGY 2017-04-29 16:58:001.5[facility] AodlwhnCMNBUADPNV0601-18-59 16:58:000.2[facility] DstooqdXYZXFXVUBQ4001-93-95 16:58:000.1[facility] RlwoyvvIMPOAFTRMU3449-56-01 16:58:000.4[facility] MxrslwcTABODPVTNA7440-85-97 16:58:33112Odeaeodb [facility] EZYXYDZFRW4251-14-88 16:58:0015.7[facility] ErcmdgtOZJRWBYUXY8982-68-19 16:58:00 6.9[facility] LgicmysOAKGXWLYAE6082-36-13 16:58:0032.7[facility]annHEMATOLOGY 2017-04-29 16:58:004.34[facility] MlnlcafHEACCDKUEK6215-71-78 16:58:006.0[facility] DfthjqdVCMCILUPDJ4153-79-05 16:58:0039.6[facility] EsrvargNSGKQLYBMP2602-17-84 16:58:0091.3[facility] QulucjrVDPGIGKAEY1252-64-05 16:58:00* Test Item Value Reference Range Interpretation Comments MCH (test code = MCH) 29.8 pg 27.0-31.0 [facility] ZaqfqciEEZKTTGXUF6666-74-03 16:58:0013.0[facility] HermannLIPIDS 2017-04-29 16:58:0029[facility] FthtdkyPVIVOG9006-38-64 16:58:0096[facility] QQPWXN8170-43-49 16:58:64327Kgwgcrgd UutnafcKHKIWY0437-12-45 16:58:57284Ctqmjjiu WepzybtFLDZZG7812-40-15 16:58:0059[facility] PovoikmGMOVGV0238-07-34 16:58:003.12 [facility] PMWX8135-73-87 16:06:00Surgical Pathology Report Case: [id number] Authorizing Provider: Aaron Mccullough Collected: 02/22/2017 1637 Ordering Location: [address] Received: 02/24/2017 0912 Service Pathologist: Lela Saravia MD Specimen: Biopsy, Esophagus LOWER ESOPHAGUS, ENDOSCOPIC BIOPSY - SQUAMOUS MUCOSA WITH MILD EDEMA - NO FEATURES OF REFLUX OR EOSINOPHILIC ESOPHAGITIS SEEN - NO COLUMNAR MUCOSA PRESENT - NO DYSPLASIA OR MALIGNANCY SEENThe case was presented at the departmental consensus conference on 02/26/17 Signing Pathologist Direct Phone Line: [phone] signed by Lela Saravia MD on 02/26/2017 at 4:06 PO03723SivaiulhnWxptfnobp biopsyReceived in formalin labeled "biopsy, esophagus" are four fragments measuring 0.9 x 0.8 x 0.1 cm in aggregate. Entirely submitted A1. DB/plPERFORMEDCOMPREHENSIVE METABOLIC [id number] 06:01:00* Test Item Value Reference Range Interpretation [...] DIALYSIS PATIENTS. CBC W/PLT COUNT & AUTO JUWGHDJNGSVG8261-43-88 05:28:00* Test Item Value Reference Range Interpretation [...] (test code = 2801) 0 % 0-1 EUTAFFTRBM2231-69-30 06:49:00* Test Item Value Reference Range Interpretation Comments PHOSPHORUS (BEAKER) (test code = 604) 4.0 mg/dL 2.3-4.7 PFMUUKWHH6089-25-38 06:49:00* Test Item Value Reference Range Interpretation Comments MAGNESIUM (BEAKER) (test code = 627) 1.9 mg/dL 1.6-2.6 COMPREHENSIVE METABOLIC FQYCN4702-22-42 06:49:00* Test Item Value Reference Range Interpretation [...] DIALYSIS PATIENTS. CBC W/PLT COUNT & AUTO WHTBOMDYWNEG6414-40-48 05:59:00* Test Item Value Reference Range Interpretation [...] (test code = 2801) 0 % 0-1 PT/ZZJK5871-08-63 03:59:00* Test Item Value Reference Range Interpretation [...] 2.5-3.5 for pat ients with mechanical heart valves.SYIYYT2381-73-69 03:54:00* Test Item Value Reference Range Interpretation Comments LIPASE (BEAKER) (test code = 749) 38 U/L 8-78 BGASFYO9035-89-24 03:54:00* Test Item Value Reference Range Interpretation Comments AMYLASE (BEAKER) (test code = 349) 68 U/L 25-125 COMPREHENSIVE METABOLIC YMRTL3369-47-52 03:54:00* Test Item Value Reference Range Interpretation [...] NOT APPLICABLE FOR DIALYSIS PATIENTS. HEPATIC FUNCTION ZFWWZ9887-12-67 03:54:00* Test Item Value Reference Range Interpretation [...] U/L 6-55 CBC W/PLT COUNT & AUTO UAVBLIHTLWKY7894-64-68 03:41:00* Test Item Value Reference Range Interpretation [...] = 2801) 0 % 0-1 HEMOGLOBIN AND FYRXABAXEN9176-02-80 11:59:00* Test Item Value Reference Range Interpretation Comments HEMOGLOBIN (BEAKER) (test code = 410) 10.0 GM/DL 13.7-17.5 L HEMATOCRIT (BEAKER) (test code = 411) 31.5 % 40.1-51.0 L TISSUE UCIX5989-58-16 11:34:00Surgical Pathology Report Case: [id number] Authorizing Provider: Leeanna Ma MD Collected: 02/03/2017 1350 Ordering Location: [address] Received: 02/03/2017 7158 Pathologist: Lela Saravia MD Specimens: A) - Antrum, bx r/o h pylori evaluate atrophic gastritis B) - Gastric, BX R/O H PYLORI EVALUATE ATROPHIC GASTRITIS This addendum is issued to report the result of immunohistochemical stain for Helicobacter pylori on specimen A: - NegativeCPT code: 21600Svhjtlaw electronically signed by Lela Saravia MD on [...] STAIN - NEGATIVE FOR DYSPLASIA OR MALIGNANCY 50099 X 2; 28927 X 2Melena, rule out H. Pylori, rule [...] the diagnostic report above:WARTHIN-STARRY X 2HEMOGLOBIN AND YMUICGGVGL0738-72-87 04:18:00* Test Item Value Reference Range Interpretation [...] 0 /100 WBC 0 -0 HEMOGLOBIN AND ZFSSHLHLNS4717-60-17 21:26:00* Test Item Value Reference Range Interpretation Comments HEMOGLOBIN (BEAKER) (test code = 410) 7.7 GM/DL 13.7-17.5 L HEMATOCRIT (BEAKER) (test code = 411) 24.6 % 40.1-51.0 L XSMFXFIV9835-65-30 19:21:00* Test Item Value Reference Range Interpretation [...] 8 % 20-5 5 L HEMOGLOBIN AND XBDBTSDGOV5699-35-75 18:44:00* Test Item Value Reference Range Interpretation Comments HEMOGLOBIN (BEAKER) (test code = 410) 8.1 GM/DL 13.7-17.5 L HEMATOCRIT (BEAKER) (test code = 411) 25.3 % 40.1-51.0 L HEMOGLOBIN AND ERGZSBIZXV5629-74-75 10:09:00* Test Item Value Reference Range Interpretation Comments HEMOGLOBIN (BEAKER) (test code = 410) 8.3 GM/DL 13.7-17.5 L HEMATOCRIT (BEAKER) (test code = 411) 27.0 % 40.1-51.0 L BASIC METABOLIC DMEZV4616-27-22 04:32:00* Test Item Value Reference Range Interpretation [...] GFR IS NOT APPLICABLE FOR DIALYSIS PATIENTS. KFPPFVVGKC5050-18-20 04:30:00* Test Item Value Reference Range Interpretation Comments PHOSPHORUS (BEAKER) (test code = 604) 2.8 mg/dL 2.3-4.7 WJEKTJBSQ3472-45-38 04:30:00* Test Item Value Reference Range Interpretation Comments MAGNESIUM (BEAKER) (test code = 627) 1.9 mg/dL 1.6-2.6 PT/CMPI8756-11-10 04:20:00* Test Item Value Reference Range Interpretation [...] for pat ients with mechanical heart valves.PROTHROMBIN TIME/PAD5646-26-72 04:19:00* Test Item Value Reference Range Interpretation [...] 0 /100 WBC 0 -0 HEMOGLOBIN AND EOZQILQSEF3661-26-07 04:09:00* Test Item Value Reference Range Interpretation Comments HEMOGLOBIN (BEAKER) (test code = 410) 8.0 GM/DL 13.7-17.5 L HEMATOCRIT (BEAKER) (test code = 411) 25.2 % 40.1-51.0 L HEMOGLOBIN AND CFTDJLKWKQ3660-18-26 20:58:00* Test Item Value Reference Range Interpretation Comments HEMOGLOBIN (BEAKER) (test code = 410) 8.0 GM/DL 13.7-17.5 L HEMATOCRIT (BEAKER) (test code = 411) 25.6 % 40.1-51.0 L HEMOGLOBIN AND ZQBNQPUABR7186-57-00 12:21:00* Test Item Value Reference Range Interpretation Comments HEMOGLOBIN (BEAKER) (test code = 410) 8.7 GM/DL 13.7-17.5 L HEMATOCRIT (BEAKER) (test code = 411) 27.6 % 40.1-51.0 L HEMOGLOBIN AND GNEBBBBCAW8471-58-38 05:58:00* Test Item Value Reference Range Interpretation Comments HEMOGLOBIN (BEAKER) (test code = 410) 8.3 GM/DL 13.7-17.5 L HEMATOCRIT (BEAKER) (test code = 411) 26.3 % 40.1-51.0 L [id number] 05:55:00* Test Item Value Reference Range Interpretation Comments PHOSPHORUS (BEAKER) (test code = 604) 2.8 mg/dL 2.3-4.7 [id number] 05:55:00* Test Item Value Reference Range Interpretation Comments MAGNESIUM (BEAKER) (test code = 627) 2.0 mg/dL 1.6-2.6 BASIC METABOLIC [id number] 05:55:00* Test Item Value Reference Range Interpretation [...] GFR IS NOT APPLICABLE FOR DIALYSIS PATIENTS. PT/[id number] 05:50:00* Test Item Value Reference Range Interpretation [...] pat ients with mechanical heart valves.HEMOGLOBIN AND [id number] 00:18:00 * Test Item Value Reference Range Interpretation Comments HEMOGLOBIN (BEAKER) (test code = 410) 8.2 GM/DL 13.7-17.5 L HEMATOCRIT (BEAKER) (test code = 411) 26.0 % 40.1-51.0 L HEMOGLOBIN AND [id number] 18:59:00* Test Item Value Reference Range Interpretation Comments HEMOGLOBIN (BEAKER) (test code = 410) 8.9 GM/DL 13.7-17.5 L HEMATOCRIT (BEAKER) (test code = 411) 28.1 % 40.1-51.0 L HEMOGLOBIN AND [id number] 13:15:00* Test Item Value Reference Range Interpretation [...] = 413) 0 /100 WBC 0 -0 [id number] 06:41:00* Test Item Value Reference Range Interpretation Comments PHOSPHORUS (BEAKER) (test code = 604) 2.9 mg/dL 2.3-4.7 [id number] 06:41:00* Test Item Value Reference Range Interpretation Comments MAGNESIUM (BEAKER) (test code = 627) 2.3 mg/dL 1.6-2.6 BASIC METABOLIC [id number] 06:41:00* Test Item Value Reference Range Interpretation [...] NOT APPLICABLE FOR DIALYSIS PATIENTS. HEMOGLOBIN AND [id number] 06:09:00* Test Item Value Reference Range Interpretation Comments HEMOGLOBIN (BEAKER) (test code = 410) 8.1 GM/DL 13.7-17.5 L HEMATOCRIT (BEAKER) (test code = 411) 25.3 % 40.1-51.0 L PROTHROMBIN TIME/[id number] 06:07:00* Test Item Value Reference Range Interpretation Comments PROTIME (BEAKER) (test code = 759) 13.9 seconds 11.7-14.7 INR (BEAKER) (test code = 370) 1.1 <=5.9 RECOMMENDED COUMADIN/WARFARIN INR THERAPY RANGESSTANDARD DOSE: 2.0 - 3.0 Inclu prabhakar: PROPHYLAXIS for venous thrombosis, systemic embolization; TREATMENT for marian ous thrombosis and/or pulmonary embolus.HIGH RISK: Target INR is 2.5-3.5 for pat ients with mechanical heart valves.PT/[id number] 06:07:00* Test Item Value Reference Range Interpretation [...] 2.5-3.5 for pat ients with mechanical heart valves.[id number] 00:56:00* Test Item Value Reference Range Interpretation Comments PARTIAL THROMBOPLASTIN TIME (BEAKER) (test code = 760) 28.2 seconds 22.5-36.0 PROTHROMBIN TIME/[id number] 00:55:00* Test Item Value Reference Range Interpretation Comments PROTIME (BEAKER) (test code = 759) 14.3 seconds 11.7-14.7 INR (BEAKER) (test code = 370) 1.1 <=5.9 RECOMMENDED COUMADIN/WARFARIN INR THERAPY RANGESSTANDARD DOSE: 2.0 - 3.0 Inclu prabhakar: PROPHYLAXIS for venous thrombosis, systemic embolization; TREATMENT for marian ous thrombosis and/or pulmonary embolus.HIGH RISK: Target INR is 2.5-3.5 for pat ients with mechanical heart valves.[id number] 00:54:00* Test Item Value Reference Range Interpretation Comments PHOSPHORUS (BEAKER) (test code = 604) 3.6 mg/dL 2.3-4.7 [id number] 00:54:00* Test Item Value Reference Range Interpretation Comments MAGNESIUM (BEAKER) (test code = 627) 2.3 mg/dL 1.6-2.6 BASIC METABOLIC [id number] 00:54:00* Test Item Value Reference Range Interpretation [...] NOT APPLICABLE FOR DIALYSIS PATIENTS. HEMOGLOBIN AND [id number] 00:34:00* Test Item Value Reference Range Interpretation [...] 0 -0 CBC W/PLT COUNT & AUTO [id number] 00:34:00* Test Item Value Reference Range Interpretation [...] 0 % 0-1 FOREARM RIGHT 2 VIEW [facility] [address] [address] Patient Name: TERESA WARD MR #: [id number] : 1955 Age/Sex: 61/M Req #: [id number] Adm Physician: Ordered by: BALDO MONDRAGON MD Report #: [id number] Location: ER Room/Bed: Procedure: [id number] DX/FOREARM RIGHT 2 VIEW Exam Da te: 04/25/17 Exam Time: 1850 REPORT STATUS: Sig yamil FOREARM RIGHT 2 [...] MD 29 Transcribed By: CADEN on 04/25/171929 CHROME [employer]ER Y TO: BALDO MONDRAGON MD LOWER LEG RIGHT [address] [place] [address] Patient Name: TERESA WARD MR #: [id number] : 1955 Age/Sex: 61/M Req #: [id number] Adm Physician: Ordered by: BALDO MONDRAGON MD Report #: [id number] Location: ER Room/Bed: Procedure: [id number] DX/LOWER LEG RIGHT Exam Date: Exam Time: [...]
[2019-12-15] MEDS ORDERED: VANCOMYCIN 1GM/NS 250 ML 250 ML IV ONE (16:45)
[2019-12-15] MEDS: AZITHROMYCIN 500MG/NS 250 ML 250 ML IV SCH (16:54)
--- NOTE | 2019-12-15 19:05 | NUR ---
spoke to Dr. Dudley. He stated he does not think patient has COVID and does not need to go to COVID unit at this time.
[2019-12-15] MEDS: ACETAMINOPHEN 325 MG TAB PO PRN (20:51)
--- NOTE | 2019-12-15 20:51 | NUR ---
Patient c/o chills at this time. Patient medicated for low grade temp of 99.7
[2019-12-15] MEDS ORDERED: LABETALOL HCL 5 MG/ML 20ML VIAL IV STA (21:28)
[2019-12-15] MEDS ORDERED: SODIUM CHLORIDE 0.9% 1000ML 1,000 ML IV STA (21:29)
--- NOTE | 2019-12-15 21:29 | NUR ---
Patient not shivering as bad at this time. States he feels better. Will continue to monitor patient. Addendum: 12/15/19 at 2130 by ELE Patient also denies shortness of breath
--- NOTE | 2019-12-15 21:43 | NUR ---
Patient moved to room 2 at this time and placed under COVID precautions
--- NOTE | 2019-12-15 22:01 | NUR ---
Patient swabbed for symptomatic COVID swab
[2019-12-16] VITALS (8 sets, daily range): BP systolic 113–168; BP diastolic 45–67
[2019-12-16] MEDS ORDERED: FUROSEMIDE40 MG PO (00:42)
--- NOTE | 2019-12-16 01:10 | NUR ---
Patient resting in bed with no distress noted. RR even and unlabored. Patient denies shortness of breath at this time. Will continue to monitor patient.
--- NOTE | 2019-12-16 02:00 | NUR ---
PATIENT WAS BROUGHT FROM ER IN A STRETCHER WITH C/O FEVER.ASSESSMENT DONE.AAOX4.NO RESP.DISTRESS NOTED.IV TO LEFT AC #[address].ORIENTED TO THE UNIT.BED LOCKED AND IN LOWEST POSITION.PHONE AND CALL LIGHT WITHIN REACH.INSTRUCTED TO CALL FOR ASSISTANCE NEEDED.
[2019-12-16] MEDS: CEFTRIAXONE SOD 1 GM/NS 50 ML 50 ML IV SCH ×2 (03:10→16:00)
--- NOTE | 2019-12-16 03:25 | NUR ---
AFEBRILE.RESTING IN THE BED.
--- NOTE | 2019-12-16 06:57 | NUR ---
BED SIDE SHIFT REPORT GIVEN TO ONCOMING RN.STABLE CONDITION.
[2019-12-16 07:50] LABS: BASOPHILS % 0.3 % (0.0-1.0); EOSINOPHILS % 0.3 % (0.0-6.0); HEMATOCRIT 35.1 % (38.2-49.6); HEMOGLOBIN 11.2 g/dL (14.0-18.0); LYMPHOCYTES # (AUTO) 0.9 (1.0-3.2); LYMPHOCYTES % 13.6 % (18.0-39.1); MEAN CORPUSCULAR HGB CONC 31.9 g/dL (31-35); MEAN CORPUSCULAR VOLUME 97.2 fL (81-99); MONOCYTES # (AUTO) 0.4 (0.2-0.8); MONOCYTES % 6.6 % (4.4-11.3); NEUTROPHILS # (AUTO) 5.1 (2.1-6.9); NEUTROPHILS % 78.9 % (38.7-80.0); PLATELET COUNT 101 x10e3/uL (140-360); RED BLOOD COUNT 3.61 x10e6/uL (4.3-5.7); RED CELL DISTRIBUTION WIDTH 15.4 % (11.7-14.4)
[2019-12-16 08:11] LABS: ALBUMIN 2.9 g/dL (3.5-5.0); ALBUMIN/GLOBULIN RATIO 0.7 (0.8-2.0); ANION GAP 14.8 mmol/L (8-16); CREATININE, SERUM 1.3 mg/dL (0.72-1.25); POTASSIUM 3.8 mmol/L (3.5-5.1)
[2019-12-16 08:31] LABS: CREATINE KINASE MB 0.8 ng/mL (0-5.0)
[2019-12-16] MEDS: ACETAMINOPHEN 325 MG TAB PO PRN (11:53)
[2019-12-16] MEDS: AZITHROMYCIN 500MG/NS 250 ML 250 ML IV SCH (17:00)
[2019-12-16] MEDS ORDERED: VANCOMYCIN 1GM/NS 250 ML 250 ML IV SCH (18:00)
[2019-12-16] MEDS: VANCOMYCIN 1GM/NS 250 ML 250 ML IV SCH (18:42)
--- NOTE | 2019-12-16 20:00 | NUR ---
PATIENT OFF THE UNIT FOR CT SCAN IN A WHEEL CHAIR.
--- NOTE | 2019-12-16 20:30 | NUR ---
CAME BACK TO UNIT LISA STABLE CONDITION.
[2019-12-16] MEDS ORDERED: IOPAMIDOL 370 MG/ML 200 ML INFUS..BTL INJ ONE (20:31)
[2019-12-16] MEDS ORDERED: SODIUM CHLORIDE 0.9% 50ML 50 ML ONE (20:31)
[2019-12-16] MEDS ORDERED: CLONAZEPAM 0.5 MG TAB PO PRN (21:00)
--- NOTE | 2019-12-16 21:32 | Diagnostic Imaging Report ---
EXAM: CT Abdomen and Pelvis WITH contrast INDICATION: ^r/oinfection COMPARISON: CT dated 12/06/2019 TECHNIQUE: Abdomen and pelvis were scanned utilizing a multidetector helical scanner from the lung base to the pubic symphysis after administration of IV contrast. Coronal and sagittal reformations were obtained. Dose modulation, iterative reconstruction, and/or weight based adjustment of the mA/kV was utilized to reduce the radiation dose to as low as reasonably achievable. Routine protocol was performed. Scan was performed when during portal venous phase. IV CONTRAST: 100 mL of Isovue-370 ORAL CONTRAST: None COMPLICATIONS: None RADIATION DOSE: Total DLP: 923.97 mGy*cm Estimated effective dose: (DLP x 0.015 x size factor) mSv CTDIvol has been reviewed. It is below the limits set by the Radiation Protocol Committee (RPC). FINDINGS: LINES and TUBES: Partially seen distal leads of a cardiac pacemaker. LOWER THORAX: Unremarkable HEPATOBILIARY: No focal hepatic lesions. No biliary ductal dilation. GALLBLADDER: Surgically absent. SPLEEN: No splenomegaly. PANCREAS: No focal masses or ductal dilatation. ADRENALS: No adrenal nodules KIDNEYS/URETERS: Kidneys enhance symmetrically. No hydronephrosis. No cystic or solid mass lesions. No stones. GI TRACT: No abnormal distention, wall thickening, or evidence of bowel obstruction. Appendix is normal. Moderate size hiatal hernia. PELVIC ORGANS/BLADDER: Unremarkable. LYMPH NODES: No lymphadenopathy. 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 Unchanged aneurysmal dilatation of the abdominal aorta distal to the diaphragmatic hiatus at the level of the celiac access measuring 4.9 x 3.8 cm. The celiac axis, SMA, and bilateral renal arteries remain patent. Again identified are postsurgical changes from endovascular infrarenal abdominal aortic aneurysm repair with graft placement. The graft remains patent. The aneurysm sac measures 5.2 x 6.3 cm, previously 4.9 x 6.1 cm. Again seen small amount of high density material within the aneurysm sac. However, precontrast and delayed phase images are not obtained for evaluation for endoleak. The bilateral common iliac, external iliac, and internal iliac arteries are patent with atherosclerotic calcifications within its course and branch vessels. The bilateral common femoral and visualized portions the superficial femoral arteries are patent. Surgical clips noted within the left groin. PERITONEUM / RETROPERITONEUM: No free air or fluid. BONES: Advanced degenerative changes of lumbar spine with mild scoliosis. SOFT TISSUES: Elevated left hemidiaphragm. Multiple fat-containing small supraumbilical ventral hernias. IMPRESSION: 1. No acute inflammatory process in the abdomen/pelvis. 2. Again seen postsurgical changes of infrarenal abdominal aortic aneurysm repair. Slight interval increase in size of infrarenal abdominal aorta aneurysmal sac when compared to CT dated 12/06/2019. Mild endoleak is suspected. 3. Moderate size hiatal hernia. Signed by: Dr. Bon Courtney MD on 12/16/2019 9:28 PM
[2019-12-16] MEDS: TRAMADOL HCL 50 MG TAB PO SCH (22:00)
--- NOTE | 2019-12-16 23:05 | Diagnostic Imaging Report ---
EXAM: CT Chest WITH contrast 12/16/2019 8:38 PM INDICATION: ^FUO, Hx AAA repair ^[id number] ^2037 COMPARISON: Chest CTA dated 02/01/2017 TECHNIQUE: Chest was scanned utilizing a multidetector helical scanner from the lung apex through the level of the adrenal glands without administration of IV contrast. Coronal and sagittal reformations were obtained. Routine protocol was performed. IV CONTRAST: 100 mL of Isovue-370 COMPLICATIONS: None RADIATION DOSE: Total DLP: 923.97 mGy*cm Estimated effective dose: (DLP x 0.014 x size factor) mSv CTDIvol has been reviewed. It is below the limits set by the Radiation Protocol Committee (RPC). FINDINGS: LINES/ TUBES: Left chest wall triple lead cardiac device. LUNGS AND AIRWAYS: Minimal upper lobe predominant centrilobular emphysematous changes. Lingular and to lesser extent right middle lobe linear atelectasis/scarring. Mild left lung volume loss and mediastinal shift to the left. There is also left lower lobe scattered atelectasis/scarring. Airways are normal. PLEURA: Mild left lung pleural thickening/irregularity. Trace right pleural effusion. No pneumothorax. HEART AND MEDIASTINUM: The thyroid gland is normal. Increased number of subcentimeter mediastinal lymph nodes. No hilar or axillary lymphadenopathy. The heart is mildly enlarged.. There is no pericardial effusion. The aorta and main pulmonary artery measure 3.6 and 3.4 cm respectively. Coronary artery vascular calcifications are present. 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 There is significant mural plaque and luminal irregularity of the descending thoracic aorta from the level of the left subclavian artery through the hiatus. Maximal overall diameter measures 3.7 cm (series 5, image 54). In the distal descending aorta the internal lumen is narrowed to 2 x 0.6 cm, previously 2.3 x 1.4 cm. Dissection flap versus progression of thrombosis at this level which is new from prior exam, best seen on coronal image 76. Patulous esophagus, containing ingested material distally, suggestive of gastroesophageal reflux. Moderate size hiatal hernia. UPPER ABDOMEN: See dedicated abdominal CT report of the same date. BONES: The visualized bony thorax is within normal limits. SOFT TISSUES: Unremarkable. IMPRESSION: 1. Again seen significant mural plaque and luminal irregularity of the descending thoracic aorta with maximum diameter of 3.7 cm. 2. Increased luminal narrowing at the distal descending aorta/diaphragmatic level, caused by new dissection flap versus progression of mural plaque, when compared to prior CTA. 3. Again seen left lung volume loss and mild mediastinal shift to the left. Left lower lobe and lingular atelectasis/scarring. 4. Trace right pleural effusion. 5. 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 Signed by: Dr. Bon Courtney MD on 12/16/2019 11:01 PM
[2019-12-17] VITALS (8 sets, daily range): BP systolic 140–154; BP diastolic 43–61
--- NOTE | 2019-12-17 00:10 | History and Physical ---
PRIMARY CARE PHYSICIAN: Jas Jovel MD OUTPATIENT SENIOR PARTNER: Dr. Gil. CONSULTING PHYSICIANS: Include Dr. Slade with Infectious Disease and Dr. Sharma with Cardiology. CHIEF COMPLAINT: Fever and chills. HISTORY OF PRESENT ILLNESS: The patient is a 64-year-old male, who was recently discharged on 12/07/2019, from [facility] and then readmitted on 12/15/2019, with fever of unknown origin for two days. He had admitted on 12/04/2019, with left-sided needle prick chest pain with associated neck pain, nausea, and vomiting. Today, he also complains of the same left-sided needle prick chest pain. On previous admission, he was found to be in atrial fibrillation with rapid ventricular rate. He had been on amiodarone drip and Cardiology followed echocardiogram and shown an ejection fraction of 50% to 55%. Only one troponin was slightly elevated at that time. He was discharged home with a new prescription for amiodarone and Eliquis. No beta-summer was given due to his hypotension. He was to follow up with primary care in 1-2 weeks and Cardiology in 1-2 weeks. 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 PAST MEDICAL HISTORY: Hypertension, coronary artery disease, CHF, AAA, abdominal aortic aneurysm, BPH, atrial fibrillation with RVR, chronic systolic CHF, gout, left bundle branch block, hyperlipidemia, and chronic kidney disease, stage 3. PAST SURGICAL HISTORY: Right coronary artery stent, biventricular AICD/pacemaker placed by Dr. Buchanan on 11/26/2019, multiple abdominal aortic aneurysm repair, back surgery, and PCI. FAMILY HISTORY: Diabetes mellitus in mother, sister, and brother. Stroke in the sister. SOCIAL HISTORY: Noncontributory. ALLERGIES: NIFEDIPINE. MEDICATIONS: See medication reconciliation. REVIEW OF SYSTEMS: A 14-point review of systems completed. He had chills last night. Does not have any now. Denies any complaints generally all of the body systems, except did complain of "pinpricks" at the heart, a left chest area. His last bowel movement was today. MEDICATIONS: Currently medications include, but not limited to, ceftriaxone, azithromycin p.r.n., Tylenol p.r.n., Zofran, vancomycin 1 g IV q.12 hours has been started. PHYSICAL EXAMINATION: VITAL SIGNS: Temperature 98.1, T-max 102.9, heart rate 75, blood pressure 157/49, respirations 20, oxygen saturation 98% on room air. Weight 183 pounds. BMI 31.4. GENERAL: Awake and alert, out of bed, ambulating to the bathroom. Bathroom privileges. LUNGS: Clear to auscultation. Respiratory pattern even and unlabored. HEENT: EOMI. NECK: Supple. CARDIOVASCULAR: Regular rate and rhythm. No murmur. ABDOMEN: Bowel sounds positive. Soft, nontender. EXTREMITIES: No pitting edema. No clubbing, cyanosis, or marked swelling. No sign or symptom of DVT. NEUROLOGICAL: GCS 15. Nonfocal. DIAGNOSTIC STUDIES: Telemetry shows paced rhythm with a heart rate of 84. LABORATORY DATA: Sodium 138, potassium 3.9, chloride 103, CO2 of 24, anion gap 14.9, BUN 22 and creatinine 1.38, estimated GFR 52, glucose 111, lactic acid 1.6, calcium 8.6, magnesium 1.8, total bilirubin 0.9, AST 39, ALT 27, alkaline phosphatase 93. Creatine kinase 120, CK-MB 0.8, troponin I 0.094. BNP 185.5. Total protein 7.6, albumin 3.3. Later on, yesterday, the creatine kinase 121, CK-MB 1.0, troponin I 0.095. Lactic acid 1.6. WBC 7.54, hemoglobin 12, hematocrit 37.3, platelets 129, neutrophils 84.7. PT 15.7, INR 1.17, PTT 32.1. Urinalysis showed slightly cloudy urine, specific gravity 1.025, protein 2+, glucose negative, ketones negative, blood small, nitrite negative, leukocyte esterase negative. Urine bacteria few, few epithelial cells. Coronavirus by PCR was negative. Influenza types A and B were negative. Group A strep screen was negative. Blood cultures x2 collected yesterday with Gram-positive cocci in clusters. Throat culture and urine culture are pending. Today's laboratory results show WBC 6.47, hemoglobin 11.2, hematocrit 35.1, platelets 101, neutrophils 78.9. Sodium 140, potassium 3.8, chloride 107, CO2 of 22, BUN 23 and creatinine 1.3, estimated GFR 55, glucose 93, calcium 8.0, total bilirubin 0.7, AST 41, ALT 27, alkaline phosphatase 87. Creatine kinase 112, CK-MB 0.8, troponin I 0.106, total protein 6.8, albumin 2.9. Chest x-ray completed yesterday shows unchanged left basilar opacities, more likely subsegmental atelectasis than superimposed aspiration or pneumonia. A 12-lead EKG was done yesterday showing a ventricular rate 115, electronic ventricular pacemaker spikes evident as aforementioned, he had an echocardiogram, his last hospitalization showing an ejection fraction of 50% to 55%. A repeat echocardiogram has been ordered to check for any vegetations and reassess the ejection fraction. Blood cultures x2 ordered for in the morning. CT of the chest without contrast to evaluate AAA repair and also due to fever of unknown origin has been ordered. ASSESSMENT AND PLAN: 1. Fever of unknown origin, POA, possible bacteremia. Coronavirus by PCR was negative. Influenza A/B negative. Group A strep was negative. Infectious Disease consulted. Vancomycin 1 g IV q.12 hours was ordered. Case discussed with Dr. Slade. CT of the entire body will be ordered. 2. Uncontrolled hypertension, chronic kidney disease stage 3. Cardiology consulted with Dr. Shamra especially considering the patient has a significant cardiac history. 3. Chronic systolic congestive heart failure. Follow up on echo results and monitor any chest x-ray results as well as the CT results. 4. Biventricular AICD in situ, placed on 11/26/2019, distant history of abdominal aortic aneurysm repair. Monitor telemetry. 5. Chronic kidney disease, 3. Monitor renal function. EGFR 55, creatinine 1.3. 6. Benign prostatic hypertrophy. Monitor urine output. Inability to urinate. Consult Urology if needed. 7. Prophylaxis, [place], [id number], 60 minutes. Dictated by Marco A Pete NP Joseph Rodriguez MD HWP/MODL /[id number]
--- NOTE | 2019-12-17 00:30 | Consultation ---
DATE OF CONSULTATION: 12/16/2019 REASON FOR CONSULTATION: Fever and bacteremia. HISTORY OF PRESENT ILLNESS: This is a 64-year-old male who had history of aortic aneurysm repair several years ago 3 times actually, who comes in with fever and chills for 2 days. He also had a pacemaker placed back in November. The patient has history of obesity, heart disease, atherosclerosis disease, comes in with fever and chills as mentioned above. The patient has had a fever. He denies any other symptoms. He does have history of coronary artery disease, congestive heart failure, biventricular ICD placement recently in November, hypertension, and hyperlipidemia. PAST SURGICAL HISTORY: He had aortic surgery as mentioned above. He also had coronary angiography. The patient is currently lying in bed comfortably. Several aneurysm surgeries. PAST MEDICAL HISTORY: Obesity, heart disease, congestive heart failure, arrhythmia, aortic aneurysm. SOCIAL HISTORY: There is no smoking, drug abuse, or alcohol abuse. FAMILY HISTORY: Otherwise unremarkable. LABORATORY DATA: His COVID-19 is negative, influenza is negative. Sodium 140, potassium 3.8, creatinine 1.30. Liver enzyme within normal limit. White count 6.47, hemoglobin 11. His blood cultures showed gram-positive cocci in two sets. PHYSICAL EXAMINATION: GENERAL: Currently alert, oriented. VITAL SIGNS: Stable, afebrile. HEENT: Is not icteric. NECK: Supple. CHEST: Clear. HEART: S1 and S2. No murmur. ABDOMEN: Soft. Bowel sounds present. EXTREMITIES: No edema. IMPRESSION: 1. Sepsis on admission, but bacteremia gram-positive cocci. Recommend discontinue Rocephin. Discontinue azithromycin. We will put the patient on vancomycin 1.25 g q.12 hours. Obtain echocardiogram. Obtain CT of the abdomen, pelvis, and chest. Obtain echocardiogram. May need a MILLIE. We will recheck his blood cultures. Further recommendations to follow. I am concerned if he have endocarditis and concern for aortic valve infection, aortic graft infection versus other. I am not so sure whether his heart. AICD placement recently. Also, if concern. We will follow. 2. Chronic kidney disease. We will follow vancomycin level. Further recommendation depending on the pathogen. MD MARLENA Kasper/SIGIFREDO /[id number]
[2019-12-17] MEDS: TRAMADOL HCL 50 MG TAB PO SCH ×4 (06:00→23:23)
[2019-12-17] MEDS: VANCOMYCIN 1GM/NS 250 ML 250 ML IV SCH ×2 (06:25→20:52)
[2019-12-17 06:59] LABS: BASOPHILS % 0.5 % (0.0-1.0); EOSINOPHILS # (AUTO) 0.1 (0.0-0.4); EOSINOPHILS % 1.8 % (0.0-6.0); HEMATOCRIT 36.9 % (38.2-49.6); LYMPHOCYTES # (AUTO) 1.4 (1.0-3.2); LYMPHOCYTES % 23.2 % (18.0-39.1); MEAN CORPUSCULAR HEMOGLOBIN 30.8 pg (28-32); MEAN CORPUSCULAR HGB CONC 32.5 g/dL (31-35); MEAN CORPUSCULAR VOLUME 94.9 fL (81-99); MONOCYTES # (AUTO) 0.7 (0.2-0.8); MONOCYTES % 11.8 % (4.4-11.3); NEUTROPHILS # (AUTO) 3.8 (2.1-6.9); NEUTROPHILS % 62.4 % (38.7-80.0); PLATELET COUNT 129 x10e3/uL (140-360); RED BLOOD COUNT 3.89 x10e6/uL (4.3-5.7)
--- NOTE | 2019-12-17 07:00 | NUR ---
RCD PT AT BED PT IS ALERT AND ORIENTED RESTING ON BED IV PATENT BY SALINE FLUSH BED LOW AND LOCKED CALL LIGHT IN REACH
--- NOTE | 2019-12-17 07:12 | NUR ---
Bed side shift report given to oncoming RN.stable condition.
[2019-12-17 07:41] LABS: ANION GAP 14.9 mmol/L (8-16); CALCIUM 8.1 mg/dL (8.4-10.2); CREATININE, SERUM 1.28 mg/dL (0.72-1.25); POTASSIUM 3.9 mmol/L (3.5-5.1)
[2019-12-17 07:55] LABS: PHOSPHORUS 3.2 MG/DL (2.3-4.7)
[2019-12-17] MEDS: AMIODARONE HCL 200 MG TAB PO SCH ×2 (09:00→16:45)
[2019-12-17] MEDS: ATORVASTATIN 40 MG TAB PO SCH (09:00)
[2019-12-17] MEDS: FAMOTIDINE 20 MG/2 ML VIAL IV SCH ×2 (09:00→16:44)
[2019-12-17] MEDS: ALLOPURINOL 300 MG TAB PO SCH (09:00)
[2019-12-17] MEDS: FUROSEMIDE 20 MG TAB PO SCH (09:00)
[2019-12-17] MEDS: APIXABAN 5 MG TABLET PO SCH ×2 (09:00→16:45)
[2019-12-17] MEDS: TAMSULOSIN HCL 0.4 MG CAP PO SCH (09:00)
[2019-12-17] MEDS: ASPIRIN 81 MG CHEW TAB PO SCH (09:30)
[2019-12-17] MEDS: CEFTRIAXONE SOD 1 GM/NS 50 ML 50 ML IV SCH (11:30)
--- NOTE | 2019-12-17 12:28 | Progress Note ---
DATE: SUBJECTIVE: The patient is seen and evaluated. Available labs and notes reviewed. REVIEW OF SYSTEMS: The patient has no complaints. No nausea, vomiting, fever, chills, chest pain, shortness of breath, headache, rash, dysuria, polyuria. OBJECTIVE: VITAL SIGNS: Temperature is 98.1 improved from 102.9 pretty much on admission, pulse 86, respirations 20, and blood pressure 152/61. GENERAL: Alert and oriented, no acute distress, sitting in a chair. CV: S1 and S2. CHEST: Equal expansion. Clear to auscultation. No acute distress. ABDOMEN: Soft, nontender, no distention. HEENT: Moist. No pallor. No JVD. EXTREMITIES: Moves all. Some trace edema. SKIN: The site of the pacemaker seen, no obvious acute finding. No drainage. No erythema. MEDICATIONS: Medication list reviewed from Infectious Disease point of view. Patient is on vancomycin IV 1 g IV piggyback q.12 hours. LABORATORY STUDIES: White count of 6.09, hemoglobin 12, platelet 129. Sodium 138, potassium 3.9, creatinine 1.28. Serology: Coronavirus PCR not detected on 12/15/2019 x2, one at 1335 hours and other one at 2152 hours. Influenza type A and B antigen and group A strep screen both were negative on 12/15/2019. MICROBIOLOGY: Blood culture showed Enterococcus with sensitivity progress. Recheck blood culture pending. Urine culture was negative 48 hours and throat culture showed usual respiratory bogdan. IMAGING: He had a CT of the chest, abdomen and pelvis showed left lung volume loss and mild mediastinal shift to the left lower lobe and lingular atelectasis and scarring. He has trace right pleural effusion, occlusion of the left subclavian artery with retrograde failing from left vertebral artery and no change, also had some mural plaque and luminal irregularity of the descending thoracic aorta with a maximum diameter of 3.7 cm. Also increased luminal narrowing at the distal descending aortic/diaphragmatic level caused by new dissection flap versus progression of neural plaque. ASSESSMENT AND PLAN: Sepsis on admission with Enterococcus, pending sensitivity, fever resolved on vancomycin, Enterococcus most likely sensitive to vancomycin. We will follow with identification and sensitivity of Enterococcus. The patient may need PT. Further workup including MILLIE. I will discuss with attending team, continue vancomycin IV. Follow with culture. Further management of this patient is based on daily findings on laboratory and physical examination. Please refer to chart for more information. Dictated by Ishan Altman) SANJAY Gallego Lake Slade MD /MODL /[id number]
--- NOTE | 2019-12-17 18:46 | NUR ---
pt resting on bed bed side report given to oncoming nurse
[2019-12-18] VITALS (9 sets, daily range): BP systolic 96–189; BP diastolic 53–68
[2019-12-18] MEDS: ACETAMINOPHEN 325 MG TAB PO PRN (02:14)
--- NOTE | 2019-12-18 03:01 | Consultation ---
DATE OF CONSULTATION: 12/17/2019 Cardiology Consult Note REASON FOR CONSULT: AFib with RVR, status post Bi-V ICD placement on 11/26/2019. History of CAD. CHIEF COMPLAINT: Fevers. HISTORY OF PRESENT ILLNESS: A 64-year-old man with history of CAD, status post RCA-PCI, Bi-V ICD placement on 11/26/2019, abdominal aortic aneurysm repair, who presents with fevers. Denies any chest pain or shortness of breath. His blood pressure has been labile and his medicines are changed recently. PAST MEDICAL HISTORY: Described in the HPI. SOCIAL HISTORY: Does not smoke, drink, or abuse drugs. FAMILY HISTORY: Noncontributory. REVIEW OF SYSTEMS: As per HPI, otherwise negative. OUTPATIENT MEDICATIONS: Reviewed. ALLERGIES: ALLERGIC TO NIFEDIPINE. OBJECTIVE: VITAL SIGNS: Temperature afebrile, pulse 66, respiratory rate 18, blood pressure 154/56, saturating 98% on room air. GENERAL: A 64-year-old man, in no acute distress. CARDIOVASCULAR: Regular rate and rhythm. No murmurs, rubs, or gallops. LUNGS: Clear to auscultation bilaterally. ABDOMEN: Soft, nontender, and nondistended. NEURO AND PSYCH: Alert and oriented to person, place, and time. Normal affect. INPATIENT MEDICATIONS: Reviewed. LABORATORY DATA: Reviewed. Coronavirus negative. Blood cultures positive for enterococcus on 12/15/2019. IMAGING DATA: Reviewed. Chest CT shows significant plaquing irregularities in the descending thoracic aorta, compression of neural plaque and narrowing of the distal descending aorta at the diaphragmatic level, occlusion of the left subclavian artery with retrograde filling from the left vertebral artery, unchanged abdominal aortic endovascular repair graft from prior with mural thrombus and surrounding aneurysm sac. ASSESSMENT: 1. Chronic systolic congestive heart failure, status post biventricular automated implantable cardioverter-defibrillator placement. 2. Coronary artery disease, status post right coronary artery percutaneous coronary intervention. 3. Paroxysmal atrial fibrillation. 4. Coronary artery disease, status post abdominal aortic aneurysm endovascular graft repair. 5. Enterococcus bacteremia. PLAN: Blood cultures from 12/14 are positive for enterococcus. The patient will likely need a MILLIE. The patient already ate today, so we will plan for MILLIE on Friday. Thank you for this consult. We will continue to follow. MD LUCAS Joya/SIGIFREDO /[id number]
[2019-12-18] MEDS: TRAMADOL HCL 50 MG TAB PO SCH ×3 (06:00→21:41)
--- NOTE | 2019-12-18 07:10 | NUR ---
RCD PT AT BED PT IS ALERT AND ORIENTED RESTING ON BED IV PATENT BY SALINE FLUSH BED LOW AND LOCKED CALL LIGHT IN REACH
[2019-12-18] MEDS: LABETALOL HCL 5 MG/ML 20ML VIAL IV PRN (07:50)
[2019-12-18] MEDS: VANCOMYCIN 1GM/NS 250 ML 250 ML IV SCH ×2 (08:00→21:41)
[2019-12-18] MEDS: TAMSULOSIN HCL 0.4 MG CAP PO SCH (09:00)
[2019-12-18] MEDS: ASPIRIN 81 MG CHEW TAB PO SCH (09:00)
[2019-12-18] MEDS: AMIODARONE HCL 200 MG TAB PO SCH ×2 (09:00→16:46)
[2019-12-18] MEDS: ATORVASTATIN 40 MG TAB PO SCH (09:00)
[2019-12-18] MEDS: FAMOTIDINE 20 MG/2 ML VIAL IV SCH ×2 (09:00→16:46)
[2019-12-18] MEDS: ALLOPURINOL 300 MG TAB PO SCH (09:00)
[2019-12-18] MEDS: FUROSEMIDE 20 MG TAB PO SCH (09:00)
[2019-12-18] MEDS: APIXABAN 5 MG TABLET PO SCH ×2 (09:00→16:46)
[2019-12-18 09:07] LABS: BASOPHILS % 0.8 % (0.0-1.0); EOSINOPHILS # (AUTO) 0.1 (0.0-0.4); EOSINOPHILS % 3.6 % (0.0-6.0); HEMATOCRIT 34.9 % (38.2-49.6); HEMOGLOBIN 11.1 g/dL (14.0-18.0); LYMPHOCYTES # (AUTO) 1.3 (1.0-3.2); LYMPHOCYTES % 32.7 % (18.0-39.1); MEAN CORPUSCULAR HEMOGLOBIN 30.2 pg (28-32); MEAN CORPUSCULAR HGB CONC 31.8 g/dL (31-35); MEAN CORPUSCULAR VOLUME 95.1 fL (81-99); MONOCYTES # (AUTO) 0.5 (0.2-0.8); MONOCYTES % 12.9 % (4.4-11.3); NEUTROPHILS % 49.5 % (38.7-80.0); PLATELET COUNT 114 x10e3/uL (140-360); RED BLOOD COUNT 3.67 x10e6/uL (4.3-5.7); RED CELL DISTRIBUTION WIDTH 14.7 % (11.7-14.4)
[2019-12-18 09:24] LABS: ANION GAP 13.8 mmol/L (8-16); BLOOD UREA NITROGEN 22 mg/dL (7-26); BUN/CREATININE RATIO 19 (6-25); CALCIUM 8.5 mg/dL (8.4-10.2); CARBON DIOXIDE 24 mmol/L (22-29); CHLORIDE 106 mmol/L (98-107); CREATININE, SERUM 1.13 mg/dL (0.72-1.25); EST GLOMERULAR FILTRATION RATE > 60 ML/MIN (60-); GLUCOSE 89 mg/dL (74-118); POTASSIUM 3.8 mmol/L (3.5-5.1); SODIUM 140 mmol/L (136-145)
--- NOTE | 2019-12-18 10:52 | Progress Note ---
DATE: SUBJECTIVE: The patient is seen and evaluated. Available labs and notes reviewed. REVIEW OF SYSTEMS: No nausea, vomiting, fever, chills, chest pain, shortness of breath, headache, rash, cough, dysuria, or polyuria. PHYSICAL EXAMINATION: VITAL SIGNS: Temperature 97.3, pulse 63, respiration 18, and blood pressure 149/53. GENERAL: Alert and oriented. No acute distress. CV: S1 and S2. CHEST: Equal expansion. Clear to auscultation. No acute distress. HEENT: Moist. No pallor. No JVD. EXTREMITIES: Moves all. No edema. MEDICATIONS: Medication list reviewed and as far as Infectious Disease point of view, the patient is on vancomycin IV and Rocephin was started yesterday. LABORATORY STUDIES: White count of 3.94, hemoglobin 11.1, and platelet 114, which is down from 129. Sodium 140, potassium 3.8, and creatinine 1.13. Toxicology; vancomycin trough is 13.4. Serology; coronavirus, influenza type A and B antigen and group A strep screens are all negative on 12/15/2019. MICROBIOLOGY: Blood culture, Enterococcus with sensitivity pending. Recheck blood culture on 12/16, was negative. Urine culture 12/15/2019, negative 48 hours. Sputum/throat culture showed usual respiratory bogdan. IMAGING: No new radiology studies available. CT chest was mentioned in a previous progress note. ASSESSMENT AND PLAN: 1. Sepsis, on admission. 2. Enterococcus bacteremia with recheck blood culture negative, Enterococcus sensitivity is pending, the patient is on vancomycin IV and Rocephin, seems to be responding well to these antibiotics. Fever is gone and recheck blood culture is clean. However, we will follow with the final identification and sensitivity of the bacteria in the blood. 3. Mild renal insufficiency-improved estimated GFR. 4. Hypertension. 5. Hyperlipidemia. 6. The patient wants to go home. Discussed with the patient pending identification of the culture in the blood. Further management of this patient is based on daily findings on laboratory and physical examination. Please refer to chart for more information. Dictated by Ishan Gallego PA-C (Al) Lake Slade MD /MODL /[id number]
[2019-12-18] MEDS: CEFTRIAXONE SOD 1 GM/NS 50 ML 50 ML IV SCH (11:30)
--- NOTE | 2019-12-18 19:15 | NUR ---
Patient received sitting up in bed. AAO x 4. Patient had no complaints of pain. Respirations even and non-labored. Safety measures implemented. Patient instructed to call for assistance when needed. Call light within reach.
--- NOTE | 2019-12-18 19:24 | Progress Note ---
DATE: 12/18/2019 Cardiology Progress Note SUBJECTIVE: The patient denies chest pain or shortness of breath. OBJECTIVE: VITAL SIGNS: Temperature 97.8 degrees, pulse 68, respiratory rate 18, blood pressure 146/60, oxygen saturation 98% on room air. GENERAL: Awake, alert, in no acute distress. LUNGS: Clear to auscultation bilaterally. No wheezes or crackles. CARDIOVASCULAR: Normal rate, regular rhythm. No murmur. Normal S1 and S2. ABDOMEN: Soft, nontender. EXTREMITIES: 1+ pitting edema. CARDIAC MEDICATIONS: 1. Amiodarone 200 mg p.o. b.i.d. 2. Atorvastatin 40 mg p.o. daily. 3. Aspirin 81 mg p.o. daily. 4. Lasix 20 mg p.o. daily. 5. Apixaban 5 mg p.o. b.i.d. LABORATORY DATA: WBC 3.94, hemoglobin 11.1, hematocrit 34.9, platelets 114. Sodium 140, potassium 3.8, chloride 106, CO2 of 24. BUN 22, creatinine 1.13. TELEMETRY: Telemetry was personally reviewed and interpreted, revealing ventricular paced rhythm. IMPRESSION: 1. Chronic systolic heart failure, status post BiV ICD at the end of November. 2. Coronary artery disease, status post right coronary artery percutaneous coronary intervention. 3. Paroxysmal atrial fibrillation. 4. Abdominal aortic aneurysm, status post endovascular graft repair. 5. Enterococcus bacteremia. 6. Gffq-[id number]-gdqddqhx aortic regurgitation, on echocardiogram previously documented. RECOMMENDATIONS: Antibiotics per Infectious Disease. The patient will need MILLIE to evaluate for vegetation on his valve as well as new ICD planned for Friday as the patient ate on Friday. Antibiotics per Infectious Disease. Continue home cardiac medications. Monitor volume status closely. Thank you for this consult. We will continue to follow. Taniya Sharma MD ABS/MODL /[id number]
--- NOTE | 2019-12-18 20:30 | NUR ---
Patient complained of having insomnia last night. Michael Strickland (L TACKER) notified. New order received for Restoril 30 mg QHS PRN.
[2019-12-18] MEDS: TEMAZEPAM 7.5 MG CAP PO SCH (21:41)
[2019-12-19] VITALS (7 sets, daily range): BP systolic 117–176; BP diastolic 51–83
[2019-12-19] MEDS: TRAMADOL HCL 50 MG TAB PO SCH ×3 (06:00→21:20)
--- NOTE | 2019-12-19 07:00 | NUR ---
Patient resting comfortably. Walking rounds done. Shift report given regarding patient's status.
--- NOTE | 2019-12-19 07:10 | NUR ---
RCD PT AT BED PT IS ALERT AND ORIENTED RESTING ON BED IV PATENT BY SALINE FLUSH BED LOW AND LOCKED CALL LIGHT IN REACH
[2019-12-19 08:17] LABS: BASOPHILS % 0.9 % (0.0-1.0); EOSINOPHILS # (AUTO) 0.2 (0.0-0.4); EOSINOPHILS % 4.2 % (0.0-6.0); HEMOGLOBIN 12.3 g/dL (14.0-18.0); LYMPHOCYTES # (AUTO) 1.3 (1.0-3.2); LYMPHOCYTES % 31.6 % (18.0-39.1); MEAN CORPUSCULAR HGB CONC 32.4 g/dL (31-35); MEAN CORPUSCULAR VOLUME 95.7 fL (81-99); MONOCYTES # (AUTO) 0.5 (0.2-0.8); MONOCYTES % 11.1 % (4.4-11.3); NEUTROPHILS # (AUTO) 2.2 (2.1-6.9); NEUTROPHILS % 51.7 % (38.7-80.0); PLATELET COUNT 132 x10e3/uL (140-360); RED BLOOD COUNT 3.97 x10e6/uL (4.3-5.7); RED CELL DISTRIBUTION WIDTH 14.6 % (11.7-14.4)
[2019-12-19] MEDS: VANCOMYCIN 1GM/NS 250 ML 250 ML IV SCH (08:45)
--- NOTE | 2019-12-19 08:45 | NUR ---
PAGED DR WALDRON AND NOTIFIED THE VANCO TROUGH LEVEL 18.5 GOT NEW ORDERS
[2019-12-19 08:49] LABS: ANION GAP 15.9 mmol/L (8-16); BLOOD UREA NITROGEN 19 mg/dL (7-26); BUN/CREATININE RATIO 17 (6-25); CALCIUM 8.9 mg/dL (8.4-10.2); CARBON DIOXIDE 23 mmol/L (22-29); CHLORIDE 105 mmol/L (98-107); CREATININE, SERUM 1.11 mg/dL (0.72-1.25); EST GLOMERULAR FILTRATION RATE > 60 ML/MIN (60-); GLUCOSE 92 mg/dL (74-118); POTASSIUM 3.9 mmol/L (3.5-5.1); SODIUM 140 mmol/L (136-145)
[2019-12-19] MEDS: ATORVASTATIN 40 MG TAB PO SCH (09:00)
[2019-12-19] MEDS: APIXABAN 5 MG TABLET PO SCH ×2 (09:00→16:35)
[2019-12-19] MEDS: ASPIRIN 81 MG CHEW TAB PO SCH (09:00)
[2019-12-19] MEDS: FUROSEMIDE 20 MG TAB PO SCH (09:00)
[2019-12-19] MEDS: ALLOPURINOL 300 MG TAB PO SCH (09:00)
[2019-12-19] MEDS: TAMSULOSIN HCL 0.4 MG CAP PO SCH (09:00)
[2019-12-19] MEDS: AMIODARONE HCL 200 MG TAB PO SCH ×2 (09:00→16:35)
[2019-12-19] MEDS: FAMOTIDINE 20 MG/2 ML VIAL IV SCH ×2 (09:00→16:35)
[2019-12-19] MEDS: CEFTRIAXONE SOD 1 GM/NS 50 ML 50 ML IV SCH (11:30)
--- NOTE | 2019-12-19 13:38 | Progress Note ---
DATE: SUBJECTIVE: The patient is seen and evaluated. Available labs and notes reviewed. Discussed with Cardiology yesterday. Discussed with attending team yesterday and today. REVIEW OF SYSTEMS: No nausea, vomiting, fever, chills, chest pain, shortness of breath, headache, rash, dysuria, or polyuria. PHYSICAL EXAMINATION: VITAL SIGNS: Temperature 97.6, pulse 73, respirations 18, and blood pressure 166/59. GENERAL: Alert and oriented, no acute distress. CV: S1-S2. CHEST: Equal expansion. Clear to auscultation. No acute distress. ABDOMEN: Soft and nontender. No distention. HEENT: Moist. No pallor. No JVD. EXTREMITIES: Moves all. No edema. MEDICATIONS: From Infectious Disease point of view, the patient is on vancomycin IV and Rocephin. LABORATORY STUDIES: White count of 4.24, hemoglobin of 12.3, platelets 132, improved from 114. Sodium 140, potassium 3.9, and creatinine 1.11. TOXICOLOGY: Vancomycin trough 18.6. SEROLOGY: No new serology available. MICROBIOLOGY: Recheck blood cultures 12/16 is negative 48 hours. ASSESSMENT AND PLAN: 1. Enterococcus faecalis, not vancomycin-resistant enterococcus. Bacteremia with a recheck blood culture negative. Pending MILLIE in next few days per my discussion with Cardiology. Continue with antibiotics at this point. 2. Hypertension. 3. Atrial fibrillation. 4. Coronary artery disease. 5. Chronic kidney disease. 6. Currently to monitor the patient clinically. Follow with the labs. Further management of this patient is based on daily findings on laboratory and physical examination. We will follow with you MILLIE results. Discussed with Dr. Slade in details. Please refer to chart for more information. Dictated by Ishan Gallego PA-C (Al) Lake Slade MD /MODL /[id number]
--- NOTE | 2019-12-19 16:00 | NUR ---
PAGED AND NOTIFIED FILIPE GOYAL TO DR WALDRON GOT NEW ORDER
--- NOTE | 2019-12-19 16:09 | Progress Note ---
DATE: 12/19/2019 Cardiology Progress Note SUBJECTIVE: The patient denies chest pain or shortness of breath. OBJECTIVE: VITAL SIGNS: Temperature 97.6 degrees, pulse 73, respiratory rate 18, blood pressure 166/59, and oxygen saturation 98% on room air. GENERAL: Awake, alert, in no acute distress. LUNGS: Clear to auscultation bilaterally. No wheezes or crackles. CARDIOVASCULAR: Normal rate and regular rhythm. No murmur. Normal S1, S2. ABDOMEN: Soft, nontender. EXTREMITIES: 1+ pitting edema. CARDIAC MEDICATIONS: 1. Furosemide 20 mg p.o. daily. 2. Atorvastatin 40 mg p.o. daily. 3. Aspirin 81 mg p.o. daily. 4. Apixaban 5 mg p.o. b.i.d. 5. Amiodarone 200 mg p.o. b.i.d. LABORATORY DATA: WBCs 4.24, hemoglobin 12.3, hematocrit 38, and platelets 132. Sodium 140, potassium 3.9, chloride 105, CO2 of 23, BUN 19, and creatinine 1.11. Telemetry was personally reviewed and interpreted revealing ventricular-paced rhythm. IMPRESSION: 1. Enterococcus bacteremia. 2. Chronic systolic heart failure, status post BiV ICD. 3. Coronary artery disease, status post right coronary artery percutaneous coronary intervention. 4. Paroxysmal atrial fibrillation. 5. [id number] aortic regurgitation on echocardiogram. 6. Abdominal aortic aneurysm, status post endovascular graft repair. RECOMMENDATIONS: Antibiotics per Infectious Disease. The patient will need a MILLIE to evaluate for endocarditis as well as vegetations on his ICD leads, plan for tomorrow. Continue current cardiac medications. Monitor volume status closely. Thank you for this consult. We will continue to follow. Taniya Sharma MD ABS/MODL /[id number]
--- NOTE | 2019-12-19 16:32 | NUR ---
PT GOING TO M[facility]IE ON TOMORROW NPO AFTER MIDNIGHT CONSENT SIGNED
--- NOTE | 2019-12-19 18:12 | Diagnostic Imaging Report ---
EXAMINATION: CHEST XRAY LINE PLACEMENT INDICATION: ^LINE PLACEMENT ^[id number] ^1750 ^Y COMPARISON: 12/15/2019 FINDINGS: TUBES and LINES: A right upper extremity PICC has been placed with distal tip projected on the cavoatrial junction in adequate position. Left sided cardiac pacemaker again observed. LUNGS: Redemonstration of increased density of the lower left hemithorax. Mild bilateral pulmonary venous congestion with enlarged central pulmonary arteries. PLEURA: No pleural effusion or pneumothorax. HEART AND MEDIASTINUM: Cardiac size is moderately enlarged. BONES AND SOFT TISSUES: No acute osseous lesion. Soft tissues are unremarkable. UPPER ABDOMEN: No free air under the diaphragm. IMPRESSION: Right upper extremity PICC has been placed with distal tip projected on the cavoatrial junction in adequate position. Otherwise no significant change. Signed by: Dr. Richadr Calvert M.D. on 12/19/2019 6:09 PM
--- NOTE | 2019-12-19 18:38 | NUR ---
pt resting on bed bed side report given to oncoming nurse
[2019-12-19] MEDS: LABETALOL HCL 5 MG/ML 20ML VIAL IV PRN (21:05)
[2019-12-19] MEDS: TEMAZEPAM 7.5 MG CAP PO SCH (21:56)
[2019-12-20] VITALS: BP 99/58
--- NOTE | 2019-12-20 03:20 | Progress Note ---
DATE: 12/19/2019 SUBJECTIVE: The patient is lying supine in bed. States he still feels great. No chills. He is anticipating having a transesophageal echocardiogram tomorrow. OBJECTIVE: VITAL SIGNS: Temperature 98.8, heart rate 70, respirations 16, blood pressure 143/56, oxygen saturation 96%. GENERAL: Supine. LUNGS: Clear to auscultation. HEENT: EOMI. NECK: Supple. CARDIOVASCULAR: RRR. No murmur. ABDOMEN: Bowel sounds positive. Soft, nontender. EXTREMITIES: No clubbing, cyanosis, or edema, no signs or symptoms of DVT. NEUROLOGIC: GCS 15. LABORATORY: WBC 4.24, hemoglobin 12.3, hematocrit 38, platelets 132. Sodium 140, potassium 3.9, chloride 105, CO2 23, BUN 19, creatinine 1.11, GFR greater than 60, glucose 92, calcium 8.9. Vancomycin trough level 18.6. Vancomycin peak 30. No growth from blood cultures collected on 12/16 after 48 hours. X-ray shows right upper extremity PICC line has been placed with distal tip projected on the cavoatrial junction and adequate position. ASSESSMENT AND PLAN: 1. Sepsis, Enterococcus bacteremia. MILLIE on Friday. Rocephin/vancomycin. Follow up on final culture and sensitivity results. Infectious Disease following. Monitor vancomycin trough levels. 2. Chronic systolic congestive heart failure, status post biventricular AICD placement on 11/26/2019. Monitor chest x-ray results and fluid balance. 3. Paroxysmal atrial fibrillation. Cardiology following. 4. Controlled hypertension with chronic systolic congestive heart failure and chronic kidney disease 3. Monitor blood pressure. Continue Lasix and labetalol. 5. Coronary artery disease, status post percutaneous coronary intervention and abdominal aortic aneurysm, Endovascular graft repair, mild leak. 6. Chronic kidney disease 3. Avoid nephrotoxic agents. Lab holiday on 12/19. 7. Prophylaxis, Pepcid and Eliquis. Time spent 35 minutes. Billing code [id number]. Dictated by Marco A Pete, KOKO MD ANNABEL DejesusP/MODL /[id number]
[2019-12-20 04:00] VITALS: BP 97/65
[2019-12-20] MEDS: TRAMADOL HCL 50 MG TAB PO SCH ×2 (05:08→15:24)
[2019-12-20 07:02] LABS: BASOPHILS # (AUTO) 0.1 (0.0-0.1); EOSINOPHILS # (AUTO) 0.3 (0.0-0.4); EOSINOPHILS % 6.4 % (0.0-6.0); HEMATOCRIT 32.8 % (38.2-49.6); HEMOGLOBIN 10.7 g/dL (14.0-18.0); LYMPHOCYTES # (AUTO) 1.8 (1.0-3.2); LYMPHOCYTES % 34.4 % (18.0-39.1); MEAN CORPUSCULAR HEMOGLOBIN 31.7 pg (28-32); MEAN CORPUSCULAR HGB CONC 32.6 g/dL (31-35); MONOCYTES # (AUTO) 0.6 (0.2-0.8); NEUTROPHILS # (AUTO) 2.4 (2.1-6.9); NEUTROPHILS % 46.8 % (38.7-80.0); PLATELET COUNT 119 x10e3/uL (140-360); RED BLOOD COUNT 3.38 x10e6/uL (4.3-5.7); RED CELL DISTRIBUTION WIDTH 14.6 % (11.7-14.4)
--- NOTE | 2019-12-20 07:15 | NUR ---
REPORT GIVEN TO DAYSHIFT NURSE. RESTING IN BED. IN STABLE CONDITION. NO SIGNS OF IV INFILTRATION. MEL LOCKED AND IN LOW POSITION. CALL LIGHT WITHIN REACH.
[2019-12-20 07:29] VITALS: BP 174/55
[2019-12-20 07:41] LABS: ANION GAP 13.7 mmol/L (8-16); BLOOD UREA NITROGEN 19 mg/dL (7-26); BUN/CREATININE RATIO 17 (6-25); CALCIUM 8.3 mg/dL (8.4-10.2); CARBON DIOXIDE 26 mmol/L (22-29); CHLORIDE 104 mmol/L (98-107); CREATININE, SERUM 1.09 mg/dL (0.72-1.25); EST GLOMERULAR FILTRATION RATE > 60 ML/MIN (60-); GLUCOSE 78 mg/dL (74-118); POTASSIUM 3.7 mmol/L (3.5-5.1); SODIUM 140 mmol/L (136-145)
[2019-12-20] MEDS ORDERED: VANCOMYCIN 1GM/NS 250 ML 250 ML IV SCH (08:00)
[2019-12-20] MEDS: APIXABAN 5 MG TABLET PO SCH ×2 (09:00→17:34)
[2019-12-20] MEDS: AMIODARONE HCL 200 MG TAB PO SCH ×2 (09:00→17:34)
[2019-12-20 09:16] VITALS: BP 174/55
[2019-12-20] MEDS: FAMOTIDINE 20 MG/2 ML VIAL IV SCH ×2 (11:06→17:34)
[2019-12-20 11:14] LABS: EOSINOPHILS % (MANUAL) 6 % (0-7); LYMPHOCYTES % (MANUAL) 39 % (19-48); MONOCYTES % (MANUAL) 4 % (3.4-9.0); NEUTROPHILS % (MANUAL) 51 % (40-74)
[2019-12-20 11:16] LABS: HYPOCHROMASIA MODERATE; POLYCHROMASIA FEW; RBC MORPHOLOGY COMMENT NORMAL
[2019-12-20 11:17] LABS: PLATELET ESTIMATE SLIGHTLY DECREASED; PLATELET MORPHOLOGY COMMENT NORMAL
[2019-12-20] MEDS ORDERED: BENZOCAINE 20% SPR 60 ML CAN ONE (11:26)
[2019-12-20] MEDS ORDERED: SODIUM CHLORIDE 0.9% 1000ML 1,000 ML ONE (11:26)
[2019-12-20 11:31] VITALS: BP 177/59
--- NOTE | 2019-12-20 13:00 | NUR ---
1155 - pt received for MILLIE, placed on bedside monitoring. pt positioned for procedure. IV site patent to left AC and Right brachial PICC , VS stable , AV Paced rhythm 1156 - hurricaine spray (spray 1) to oral cavity by Nic under supervision of Dr Justin 1202 - all responsible staff present, Timeout performed 1202 - hurricaine spray (spray 2) to oral cavity by Nic under supervision of Dr Justin 1204 - bite block positioned and MILLIE probe passed 1212 - agitated saline injected for bubble study 1215 - MILLIE probe removed , no gross trauma or distress observed 1230 - pt taken to CCL 10 for further recovery
--- NOTE | 2019-12-20 13:05 | NUR ---
Post care complete. VS remain stable WNL for patient. able to maintain airway and conversing w/o distress or need. Reinforced NPO status till 1430 due to throat algology teacher. verbalizes understanding. Report called to Maurilio ALEMAN of these facts. pt transferred back to room w/ tele box and without distress
--- NOTE | 2019-12-20 14:10 | NUR ---
CALLED DR. WALDRON'S OFFICE REGARDING REQUISITION APPROVER' CONCERN OVER STARTING AMPICILLIN PRIOR TO DISCHARGE VS HOME PEE REQUIRING STARTING IT WHILE IN HOSPITAL.
--- NOTE | 2019-12-20 14:21 | NUR ---
Received order for home IV abx. CM to pt's bedside. Spoke to pt with daughter Mayela ([phone]) on the phone. Explained order for IV abx and explained process. Mayela states she will be able to help pt with administering abx. Pt states to use any company in network with his insurance. Choice letter signed for [facility] and [facility]. Signed choice letter placed in chart. Copy to pt. Pt also states he was fine with infusion company setting up home health with any company in network. IMM letter delivered and explained to pt. He verbalized understanding. Signed copy placed in chart. Copy to pt. Referral faxed to [facility] at [phone] / Ana Maria with [facility] was notified of referral.
[2019-12-20] MEDS ORDERED: ETOMIDATE 2 MG/ML 10 ML INJ IV ONE (14:26)
--- NOTE | 2019-12-20 15:16 | NUR ---
Received call from Kulwant with [facility]. They have received clinicals and are working on setting up abx and HH. Kulwant - [phone]
[2019-12-20] MEDS: FUROSEMIDE 20 MG TAB PO SCH (15:23)
[2019-12-20] MEDS: TAMSULOSIN HCL 0.4 MG CAP PO SCH (15:23)
[2019-12-20] MEDS: ATORVASTATIN 40 MG TAB PO SCH (15:23)
[2019-12-20] MEDS: ASPIRIN 81 MG CHEW TAB PO SCH (15:23)
[2019-12-20] MEDS: CEFTRIAXONE SOD 1 GM/NS 50 ML 50 ML IV SCH (15:24)
[2019-12-20] MEDS: ALLOPURINOL 300 MG TAB PO SCH (15:24)
[2019-12-20 15:45] VITALS: BP 103/49
--- NOTE | 2019-12-20 17:59 | NUR ---
Spoke with Kulwant at [facility]. pt will not have co-pay for medications. Home health referral was sent to [facility]. ABAD spoke with Agnes with [facility] who states they will accept pt. Pt just need to receive a dose of both abx prior to dc. Spoke with ASH Thorpe who states he got order for one time dose of Ampicillin. Pt already getting Rocephin here. Agnes states they will be able to see pt tomorrow if he discharges today. Per Kulwant, they will deliver medications tonight if pt discharges. CM printed [facility] ([phone]) and [facility] ([phone]) contact information and gave to pt. CM asked that pt call them if he does not hear from them.
[2019-12-20] MEDS ORDERED: AMPICILLIN SOD 2 GM/NS 100ML 100 ML IV ONE (18:00)
[2019-12-20] MEDS ORDERED: ACETAMINOPHEN325 M1 PO (19:37)
[2019-12-20] MEDS ORDERED: CEFTRIAXONE1 GM IV (19:37)
[2019-12-20] MEDS ORDERED: AMPICILLIN SODIU1 GM IV (19:37)
--- NOTE | 2019-12-20 20:15 | Progress Note ---
DATE: Cardiology Progress Note SUBJECTIVE: The patient denies any chest pain, shortness of breath, or palpitations. OBJECTIVE: VITAL SIGNS: Temperature is 98.1, heart rate 66, respirations are 16, blood pressure is 103/49, and ox saturation 97% on room air. GENERAL: Well appearing, no apparent distress. CARDIOVASCULAR: Regular rate and rhythm. LUNGS: Clear to auscultation. ABDOMEN: Soft, nontender, nondistended. EXTREMITIES: No clubbing, cyanosis, or edema. CARDIOVASCULAR MEDICATIONS: All cardiovascular medications reviewed. IMAGING DATA: Transesophageal echocardiogram showed no valvular vegetations. LABORATORY DATA: Reviewed. Hemoglobin is 10.7. Creatinine is 1.09. IMPRESSION: 1. Bacteremia. 2. Chronic systolic congestive heart failure. 3. Presence of implantable cardioverter-defibrillator. 4. Coronary artery disease status post percutaneous coronary intervention. 5. Paroxysmal atrial fibrillation. 6. Moderate eccentric aortic regurgitation. RECOMMENDATIONS: Continue antibiotics per primary and Infectious Disease teams. His transesophageal echocardiogram showed no valvular vegetations and moderate aortic regurgitation, which has been present. No valvular vegetations seen on the ICD leads either. Continue current cardiovascular medications. DO LUISITO Olmedo/YOSELYNL /[id number]
--- NOTE | 2019-12-20 21:45 | NUR ---
Patient transported to [facility] via wheelchair. Patient given verbal and written discharge instruction. Patient verbalized understanding. PICC line in place. Telemetry box removed. Patient in stable condition. Vital signs WNL.
--- NOTE | 2019-12-20 23:46 | Discharge Summary ---
PRIMARY CARE PHYSICIAN: Jas Jovel MD. CONSULTING PHYSICIANS: 1. Taniya Sharma MD. 2. Lake Slade MD. CHIEF COMPLAINT: Fever and chills. HOSPITAL COURSE: The patient is a 64-year-old male, who was recently discharged on 12/2019 from [facility] and then readmitted on 12/15/2019, with fever of unknown origin for 2 days. He had admitted on 12/04/2019, with left-sided needle prick chest pain with associated neck pain, nausea, and vomiting. On the day of admission, he also complained of the same left-sided needle prick chest pain. On previous admissions, he was found to be in atrial fibrillation with rapid ventricular rate. He had been on amiodarone drip and Cardiology followed. The echocardiogram had shown an ejection fraction of 50-55%. Only one troponin was slightly elevated at that time. He was discharged home with a new prescription for amiodarone and Eliquis. No beta-summer was given due to his hypotension. He was to follow up with primary care in 1-2 weeks and Cardiology in 1-2 weeks. 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 Gil, who told him to stop taking antibiotics and stop taking Lasix, but he is unsure why. He has a significant history with hypertension, coronary artery disease, CHF, abdominal aortic aneurysm, BPH, atrial fibrillation with RVR, chronic systolic CHF, gout, left bundle branch block, hyperlipidemia, chronic kidney disease stage 3, right coronary artery stent, biventricular AICD/pacemaker, placed by Dr. Linda on 11/26/2019, multiple abdominal aortic aneurysm repairs, back surgery, and PCI. ADMITTING DIAGNOSES: 1. Fever of unknown origin, present on admission, possible bacteremia. 2. Uncontrolled hypertension with chronic kidney disease 3. 3. Chronic systolic congestive heart failure. 4. Biventricular automated implantable cardioverter-defibrillator in situ, placed on 11/26/2019, distant history of abdominal aortic aneurysm repair. 5. Chronic kidney disease stage 3. 6. Benign prostatic hypertrophy. DISCHARGE DIAGNOSES: 1. Sepsis, present on admission, with enterococcus faecalis bacteremia. 2. Chronic systolic congestive heart failure, status post biventricular automated implantable cardioverter-defibrillator placement on 11/26/2019. 3. Paroxysmal atrial fibrillation. 4. Controlled hypertension with chronic systolic congestive heart failure and chronic kidney disease 3. 5. Coronary artery disease, status post percutaneous coronary intervention and abdominal aortic aneurysm, endovascular graft repair, mild leak. 6. Chronic kidney disease 3. 7. Anemia. 8. Thrombocytopenia. On admission, WBC 7.54, hemoglobin 12, hematocrit 37.3, platelets 129. PT 15.7, INR 1.17, PTT 32.1. Sodium 138, potassium 3.9, chloride 103, CO2 of 24, anion gap 14.9, BUN 22, creatinine 1.38, estimated GFR 52, glucose 111, lactic acid 1.6, calcium 8.6, magnesium 1.8, total protein 0.9, AST 39, ALT 29, alkaline phosphatase 93. Creatine kinase 120, CK-MB 0.8, troponin I 0.094. B-type natriuretic peptide 185.5. Cardiac enzymes were negative x3 sets. Lactic acid was 1.6. Coronavirus by PCR was not detected on 12/14 x2 tests. Influenza types A and B as well as group A strep screen were both negative. Blood cultures x2 collected on 12/14, grew enterococcus faecalis in both bottles. Final urine culture on 12/14 was negative. Final throat culture was negative. Blood cultures x2 collected on 12/16, showed no growth after 72 hours. Chest x-ray on 12/14 showed unchanged left basilar opacities, more likely subsegmental atelectasis than superimposed aspiration or pneumonia. CT of the abdomen and pelvis on 12/15, showed no acute inflammatory process in the abdomen and pelvis. Again seen postsurgical changes of infrarenal abdominal aortic aneurysm repair, slight interval increase in size of infrarenal AAA sac when compared to CT dated 12/06/2019. Mild endoleak suspected. CT of the chest on 12/15, showed again seen significant mural plaque and luminal irregularity of the descending thoracic aorta with maximum diameter of 3.7 cm. Trace right pleural effusion. Left lung volume loss. 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 The patient had a PICC line placed on 12/18 for home IV antibiotics. The transesophageal echocardiogram was done on 12/20/2019, which was negative for endocarditis or vegetations on his ICD leads. Case was discussed with Dr. Briceno, who completed the transesophageal echocardiogram. From a Cardiology standpoint, the patient is okay to be discharged home at this point. Dr. Slade with Infectious Disease has given recommendations for ampicillin 2 g IV every 8 hours as well as Rocephin 1 g IV daily for 4 weeks via the PICC line at home. This has been arranged by with Case Management. Today on the day of discharge, vital signs, temperature 98.1, heart rate 66, respirations 16, blood pressure 103/49, oxygen saturation 97%. WBC 5.18, hemoglobin 10.7, hematocrit 32.8, platelets 119. Potassium 3.7, serum CO2 26, BUN 19, creatinine 1.09, estimated GFR greater than 60. During his stay, the vancomycin trough level on 12/16 was 13.4, on 12/18, it was 18.6. Vancomycin peak was 30. The patient will be discharged home on cardiac diet. Activity level as tolerated. Follow up with PCP, Dr. Jovel in 1-2 weeks. Follow up with Dr. Slade in 4 weeks. Follow up with Dr. Gil as directed. Dictated by Marco A Pete NP MD KARMA Dejesus/SIGIFREDO /[id number]
== END 2019-12-20 21:45 | disposition home or self-care (01) | DRG 872 ==
LOC: ER 13:05 → ERHOLD 16:07 → MED/SURG2 12-16 01:52 → OBSVTOIN 12-16 17:08
PROVIDERS: ADMIT Internal Medicine; ATTEND Internal Medicine
PROC: 02HV33Z Insertion of Infusion Device into Superior Vena Cava, Percutaneous Approach (ICD-10-PCS; principal; 2019-12-19)
DX: A41.9 Sepsis, unspecified organism (principal); I13.0 Hypertensive heart and chronic kidney disease with heart failure and stage 1 through stage 4 chronic kidney disease, or unspecified chronic kidney disease; I50.22 Chronic systolic (congestive) heart failure; Z94.0 Kidney transplant status; N18.3 Chronic kidney disease, stage 3 (moderate); N40.0 Benign prostatic hyperplasia without lower urinary tract symptoms; Z95.810 Presence of automatic (implantable) cardiac defibrillator; Z11.59 Encounter for screening for other viral diseases; D69.6 Thrombocytopenia, unspecified; D64.9 Anemia, unspecified; I25.10 Atherosclerotic heart disease of native coronary artery without angina pectoris; Z98.61 Coronary angioplasty status; B95.2 Enterococcus as the cause of diseases classified elsewhere; I48.0 Paroxysmal atrial fibrillation; E78.5 Hyperlipidemia, unspecified; I35.1 Nonrheumatic aortic (valve) insufficiency
CPT/HCPCS: 36415; 36569; 71045; 71260; 74177; 80048; 80053; 80202; 81001; 82550; 82553; 83518; 83605; 83735; 83880; 84100; 84484; 85025; 85610; 85730; 87040; 87070; 87071; 87086; 87186; 87205; 87400; 87635; 93005; 93306; 93307; 93312; 93325; 99284; G0378; J0456; J0696; J3370; J7030; J7040; Q9967

== ENCOUNTER 2019-12-27 11:38 | Observation (INO) | payer OTHER ==
[~2019-12-27] VITALS: Ht 162.6 cm; Wt 83.5 kg
[~2019-12-27 11:38] MED LIST changes: +ACETAMINOPHEN325 M1 PO; +AMPICILLIN SODIU1 GM IV; +CEFTRIAXONE1 GM IV; +FUROSEMIDE40 MG PO
[2019-12-27] MEDS ORDERED: ASPIRIN 81 MG CHEW TAB PO ONE (12:00)
--- NOTE | 2019-12-27 12:20 | NUR ---
PT TO ROOM #11
--- NOTE | 2019-12-27 13:07 | Diagnostic Imaging Report ---
X-ray chest AP portable Comparison: 12/19/2019 History: Fever Findings: Left subclavian route dual-chamber AICD in place. Right arm route PICC line with the tip overlying SVC. These are unchanged. Central airways unremarkable. Left heart border and lower hemithorax are obscured by the battery pack of the ICD device. Atherosclerotic ectatic thoracic aorta. Bilateral pulmonary arteries are large caliber. There is no definite pleural effusion or pneumothorax. There is elevation of the left hemidiaphragm also seen on the previous x-rays. A subpulmonic effusion is not ruled out. The remainder of the left lung is unremarkable. The right lung shows crowding of vascular markings in the lower lung zone but no definite focal lung disease. Visualized skeletal structures and upper abdomen are unremarkable. Impression: Multiple abnormal findings as described above but no definite acute cardiopulmonary disease on this exam. Signed by: Tone Qiu MD on 12/27/2019 1:04 PM
[2019-12-27 13:23] LABS: BASOPHILS % 0.2 % (0.0-1.0); HEMATOCRIT 39.2 % (38.2-49.6); HEMOGLOBIN 12.2 g/dL (14.0-18.0); LYMPHOCYTES # (AUTO) 1.2 (1.0-3.2); LYMPHOCYTES % 19.2 % (18.0-39.1); MEAN CORPUSCULAR HEMOGLOBIN 30.3 pg (28-32); MEAN CORPUSCULAR HGB CONC 31.1 g/dL (31-35); MEAN CORPUSCULAR VOLUME 97.5 fL (81-99); MONOCYTES # (AUTO) 0.5 (0.2-0.8); MONOCYTES % 8.3 % (4.4-11.3); NEUTROPHILS # (AUTO) 4.7 (2.1-6.9); PLATELET COUNT 126 x10e3/uL (140-360); RED BLOOD COUNT 4.02 x10e6/uL (4.3-5.7); RED CELL DISTRIBUTION WIDTH 15.4 % (11.7-14.4)
[2019-12-27 13:41] LABS: ALBUMIN 3.5 g/dL (3.5-5.0); ALBUMIN/GLOBULIN RATIO 0.7 (0.8-2.0); CALCIUM 8.8 mg/dL (8.4-10.2); CREATININE, SERUM 1.55 mg/dL (0.72-1.25)
[2019-12-27 13:49] LABS: CREATINE KINASE MB 0.8 ng/mL (0-5.0)
--- NOTE | 2019-12-27 16:01 | NUR ---
PATIENT REMAINS IN ER AWAITING EVALUATION FROM DR. WALDRON, INFECTIOUS DISEASE
--- NOTE | 2019-12-27 16:38 | NUR ---
DR. WALDRON AT BEDSIDE EVALUATING PATIENT
[2019-12-27 16:58] LABS: CLARITY,URINE CLEAR (CLEAR); COLOR,URINE YELLOW (YELLOW); LEUKOCYTE ESTERASE ,URINE NEGATIVE (NEGATIVE); NITRITE,URINE NEGATIVE (NEGATIVE); PROTEIN,URINE DIPSTICK 2+ (NEGATIVE)
[2019-12-27 16:59] LABS: BILIRUBIN,URINE NEGATIVE (NEGATIVE); KETONES,URINE NEGATIVE (NEGATIVE); URINE UROBILINOGEN 0.2 mg/dL (0.2 - 1)
[2019-12-27 17:12] LABS: BACTERIA,URINE MANY /HPF; EPITHELIAL CELLS,URINE MANY /LPF
--- NOTE | 2019-12-27 17:48 | Emergency Department Note ---
History of Present Illnes History of Present Illness Chief Complaint: COVID PUI History of Present Illness This is a 64 year old male arrives to the ED with complaints of fever. Patient states he has a PICC line for bacteremia. Patient states he missed one dose antibiotics because his knees to come to administer them and slight temp. Patient states he was told by his home health aide to come to the ED. Chief Complaint Comment HERE FOR FEVER OF 100.9 AT HOME PER HOME HEALTH NURSE. CURRENTLY TEMP IS AT 99.8 CURRENTLY. Historian: Patient Arrival Mode: Car Relocation Specialist Required: No Onset (how long ago): day(s) Severity: mild Duration (how long): day(s) Timing of current episode: intermittent Progression: waxing and waning Chronicity: recurrent Relieving factors: none Past Medical/Family History Physician Review I have reviewed the patient's past medical and family history. Any updates have been documented here. Past Medical History Recent Fever: Yes Clinical Suspicion of Infectio: No New/Unexplained Change in Ment: No Past Medical History: Hypertension, CHF, CAD Other Medical History: previous smoker, gout, AAA, right CAD stent, BPH,pacemaker Past Surgical History: Pacer/AICD, Back Surgery Other Surgery: MULTI AAA REPAIR BACK SURGERY Social History Smoking Cessation: Never Smoker Counseling Performed: No Alcohol Use: None Any Illegal Drug Use: No TB Exposure/Symptoms: No Physically hurt or threatened: No Other Last Tetanus: UTD Any Pre-Existing Lines (PICC,: No (RIGHT PICC) Is patient up to date on immun: Yes Last Flu: NONE Last Pneumovax: NONE Review of Systems Review of Systems Constitutional: Reports as per HPI, Reports fever EENTM: Reports no symptoms Cardiovascular: Reports no symptoms Respiratory: Reports no symptoms Gastrointestinal: Reports no symptoms Genitourinary: Reports no symptoms Musculoskeletal: Reports no symptoms Integumentary: Reports no symptoms Neurological: Reports no symptoms Psychological: Reports no symptoms Endocrine: Reports no symptoms Hematological/Lymphatic: Reports no symptoms Physical Exam Related Data Allergies: Coded Allergies: nifedipine (Verified Allergy, Unknown, 02/01/17) Triage Vital Signs Vital Signs Date Time Temp Pulse Resp B/P (MAP) Pulse Ox O2 Delivery O2 Flow Rate FiO2 12/27/19 11:46 99.8 67 16 99/65 97 Physical Exam CONSTITUTIONAL Constitutional: Present well-developed, Present well-nourished HENT HENT: Present normocephalic, Present atraumatic, Present oropharynx clear/moist, Present nose normal HENT L/R: Present left ext ear normal, Present right ext ear normal EYES Eyes: Reports PERRL, Reports conjunctivae normal NECK Neck: Present ROM normal PULMONARY Pulmonary: Present effort normal, Present breath sounds normal CARDIOVASCULAR Cardiovascular: Present regular rhythm, Present heart sounds normal, Present capillary refill normal, Present normal rate GASTROINTESTINAL Abdominal: Present soft, Present nontender, Present bowel sounds normal GENITOURINARY Genitourinary: Present exam deferred SKIN Skin: Present warm, Present dry MUSCULOSKELETAL Musculoskeletal: Present ROM normal NEUROLOGICAL Neurological: Present alert, Present oriented x 3, Present no gross motor or sensory deficits PSYCHOLOGICAL Psychological: Present mood/affect normal, Present judgement normal Results Laboratory Result Diagram: 12/27/19 1229 12/27/19 1229 Laboratory Laboratory Tests Test 12/27/19 16:42 12/27/19 15:48 12/27/19 12:29 Urine Color Yellow (YELLOW) Urine Clarity Clear (CLEAR) Urine pH 5.5 (5 - 7) Urine Specific [place] 1.025 (1.010-1.025) Urine Protein 2+ (NEGATIVE) Urine Glucose (UA) Negative (NEGATIVE) Urine Ketones Negative (NEGATIVE) Urine Blood Small (NEGATIVE) Urine Nitrite Negative (NEGATIVE) Urine Bilirubin Negative (NEGATIVE) Urine Urobilinogen 0.2 mg/dL (0.2 - 1) Urine Leukocyte Esterase Negative (NEGATIVE) Urine RBC 6-10 /HPF (0-5) Urine WBC 6-10 /HPF (0-5) Urine Epithelial Cells Many /LPF (NONE) Urine Bacteria Many /HPF (NONE) White Blood Count 6.47 x10e3/uL (4.8-10.8) Red Blood Count 4.02 x10e6/uL (4.3-5.7) Hemoglobin 12.2 g/dL (14.0-18.0) Hematocrit 39.2 % (38.2-49.6) Mean Corpuscular Volume 97.5 fL (81-99) Mean Corpuscular Hemoglobin 30.3 pg (28-32) Mean Corpuscular Hemoglobin Concent 31.1 g/dL (31-35) Red Cell Distribution Width 15.4 % (11.7-14.4) Platelet Count 126 x10e3/uL (140-360) Neutrophils (%) (Auto) 72.0 % (38.7-80.0) Lymphocytes (%) (Auto) 19.2 % (18.0-39.1) Monocytes (%) (Auto) 8.3 % (4.4-11.3) Eosinophils (%) (Auto) 0.0 % (0.0-6.0) Basophils (%) (Auto) 0.2 % (0.0-1.0) Neutrophils # (Auto) 4.7 (2.1-6.9) Lymphocytes # (Auto) 1.2 (1.0-3.2) Monocytes # (Auto) 0.5 (0.2-0.8) Eosinophils # (Auto) 0.0 (0.0-0.4) Basophils # (Auto) 0.0 (0.0-0.1) Absolute Immature Granulocyte (auto 0.02 x10e3/uL (0-0.1) Sodium Level 139 mmol/L (136-145) Potassium Level 4.0 mmol/L (3.5-5.1) Chloride Level 102 mmol/L (98-107) Carbon Dioxide Level 28 mmol/L (22-29) Anion Gap 13.0 mmol/L (8-16) Blood Urea Nitrogen 24 mg/dL (7-26) Creatinine 1.55 mg/dL (0.72-1.25) Estimat Glomerular Filtration Rate 45 ML/MIN (60-) BUN/Creatinine Ratio 15 (6-25) Glucose Level 92 mg/dL (74-118) Calcium Level 8.8 mg/dL (8.4-10.2) Total Bilirubin 1.0 mg/dL (0.2-1.2) Aspartate Amino Transf (AST/SGOT) 70 IU/L (5-34) Alanine Aminotransferase (ALT/SGPT) 49 IU/L (0-55) Alkaline Phosphatase 102 IU/L (40-150) Creatine Kinase 89 IU/L (30-200) Creatine Kinase MB 0.80 ng/mL (0-5.0) Troponin I 0.074 ng/mL (0-0.300) Total Protein 8.4 g/dL (6.5-8.1) Albumin 3.5 g/dL (3.5-5.0) Globulin 4.9 g/dL (2.3-3.5) Albumin/Globulin Ratio 0.7 (0.8-2.0) Lab results reviewed: Yes Imaging Imaging results reviewed: Yes Impressions Findings: Left subclavian route dual-chamber AICD in place. Right arm route PICC line with the tip overlying SVC. These are unchanged. Central airways unremarkable. Left heart border and lower hemithorax are obscured by the battery pack of the ICD device. Atherosclerotic ectatic thoracic aorta. Bilateral pulmonary arteries are large caliber. There is no definite pleural effusion or pneumothorax. There is elevation of the left hemidiaphragm also seen on the previous x-rays. A subpulmonic effusion is not ruled out. The remainder of the left lung is unremarkable. The right lung shows crowding of vascular markings in the lower lung zone but no definite focal lung disease. Visualized skeletal structures and upper abdomen are unremarkable. Impression: Multiple abnormal findings as described above but no definite acute cardiopulmonary disease on this exam. Assessment & Plan Medical Decision Making MDM 64 female arrived to the ED with complaints of a fever. No focal source of infection noted on exam. Patient's temperature is due to a DRUG-related response and not any infectious etiology at time of admission. Patient evaluated by infectious disease and agreed. Patient admitted for monitoring. Assessment & Plan Final Impression: (1) Drug induced fever Depart Disposition: HOME, SELF-CARE Last Vital Signs Date Time Temp Pulse Resp B/P (MAP) Pulse Ox O2 Delivery O2 Flow Rate FiO2 12/27/19 17:23 99.8 59 18 99/60 99 Home Meds Active Scripts Ampicillin Sodium (AMPICILLIN SODIUM) 1 Gm Vial, 2 GM IV Q8H for 28 Days, #84 VIAL 0 Refills Prov:LYRIC BOSE LEAN MANAGER 12/20/19 Ceftriaxone Sodium (CEFTRIAXONE) 1 Gm Vial, 1 GM IV DAILY for 28 Days, #48 VIAL 0 Refills Prov:LYRIC BOSE NP 12/20/19 Acetaminophen (ACETAMINOPHEN) 325 Mg Tablet, 650 MG PO Q4H PRN for Mild Pain (1- 3) or Fever>100.8 for 14 Days, #30 TAB 0 Refills Prov:LYRIC BOSE LEAN MANAGER 12/20/19 Apixaban (Eliquis) 5 Mg Tablet, 5 MG PO BID for 30 Days RESUME 12/07/19 Prov:JAISON KRAFT NP 12/06/19 Amiodarone Hcl (AMIODARONE HCL) 200 Mg Tablet, 200 MG PO BID for 30 Days Prov:JAISON KRAFT LEAN MANAGER 12/06/19 Reported Medications Furosemide (FUROSEMIDE) 40 Mg Tablet, 40 MG PO Daily, #30 TAB 12/16/19 Tramadol Hcl (ULTRAM) 50 Mg Tablet, 50 MG PO Q8H for PAIN, TAB 12/04/19 Aspirin (ASPIR 81) 81 Mg Tablet.dr, 81 MG PO UD EVERY OTHER DAY 11/01/19 Allopurinol (ALLOPURINOL) 300 Mg Tablet, 300 MG PO DAILY, #30 TAB 11/01/19 Atorvastatin Calcium (LIPITOR) 20 Mg Tablet, 40 MG PO DAILY, TAB 11/01/19 Tamsulosin Hcl* (FLOMAX*) 0.4 Mg Cap, 0.4 MG PO DAILY, #30 CAP 11/01/19 Medications in the ED Aspirin 81 mg PRN ONCE PO Last administered on 12/27/19at 13:21; Admin Dose 81 MG; Start 12/27/19 at 12:00; Stop 12/27/19 at 12:01; Status DC KORY CODY, DO Dec 27, 2019 17:48
[2019-12-27] MEDS ORDERED: HYDRALAZINE HCL 20 MG/ML VIAL IV PRN (18:15)
[2019-12-27] MEDS ORDERED: ONDANSETRON HCL INJ 2MG/ML 2ML 2 MG/ML VIAL IV PRN (18:15)
[2019-12-27] MEDS ORDERED: TRAMADOL HCL 50 MG TAB PO PRN (18:15)
[2019-12-27] MEDS ORDERED: CEFTRIAXONE SOD 1 GM/NS 50 ML 50 ML IV SCH (18:30)
--- NOTE | 2019-12-27 19:18 | NUR ---
patient arrived to floor via gurney able to walk to bed with assistance AOX3, VERBALIZED "I'm hungry", received report from PREET RN, PATIENT ORIENTED TO ONCOMING STAFF, ORIENTED TO ROOM AND ENVIRONMENT, CALL LIGHT WITHIN REACH, PROCEEDED WITH ADMISSION
[2019-12-27 20:30] VITALS: BP 138/63
[2019-12-27] MEDS: ACETAMINOPHEN 325 MG TAB PO PRN (20:40)
[2019-12-27] MEDS ORDERED: SODIUM CHLORIDE 0.9% 250ML 250 ML IV ONE (20:45)
--- NOTE | 2019-12-27 21:08 | NUR ---
lab confirmed (+) COVID RESULT, [employer] TEACHER LYRIC CONTACTED, ORDERED CONSULT FOR AYAKA, CONSULTS CALLED, REPORT CALLED TO YSABEL SCHNEIDER, PATIENT TRANSFERRED TO [facility] UNIT ROOM 183
[2019-12-27 21:33] VITALS: BP 138/63
--- NOTE | 2019-12-27 22:10 | NUR ---
PATIENT TAKEN TO ROOM 183, AWAKE ALERT, TRANSFERRED VIA BED, PATIENT MASK ON, DROPLET PRECAUTIONS MAINTAINED
[2019-12-27] MEDS: FAMOTIDINE 20 MG/2 ML VIAL IV SCH (22:22)
[2019-12-27] MEDS: CHOLESTYRAMINE 4 GM PACKET PO SCH (22:23)
--- NOTE | 2019-12-27 22:24 | Consultation ---
DATE OF CONSULTATION: REASON FOR CONSULTATION: Fever. HISTORY OF PRESENT ILLNESS: This patient, who is currently in the emergency room. The patient is a 64-year-old, who comes in with fever and chills. The patient recently was in the hospital with bacteremia. He was discharged home with IV Rocephin and azithromycin. He grew Enterococcus. The patient apparently has been in the hospital 3 times with fever and chills. He was here and discharged on December 10 and was readmitted on December 14 with fever. He was admitted on December 03 with left-sided chest pain. The patient, who has history of hypertension, coronary artery disease, CHF, AAA, aortic aneurysm, atrial fibrillation, RVR, congestive heart failure, left bundle block, chronic kidney disease stage 3, right coronary artery stent placed and biventricular AICD placed by Dr. Linda on 11/26/2019, multiple abdominal aortic aneurysm repairs, and back surgery. FAMILY HISTORY: Diabetes mellitus. SOCIAL HISTORY: There is no smoking, drug abuse, or alcohol abuse. REVIEW OF SYSTEMS: He is feeling well except he is having fever now. Discussed with ER physician, going to be admitted. PHYSICAL EXAMINATION: GENERAL: He is currently alert and oriented. Does not seem to be in acute distress. VITAL SIGNS: Stable currently. T-max 100.3. HEENT: He is not icteric. NECK: Supple. CHEST: Clear. HEART: S1 and S2. No S3, S4, or murmur. ABDOMEN: Soft. IMPRESSION: Fever, rule out drug fever, rule out infection. Agree with blood culture and sensitivity, CBC, and chem panel. Continue with ampicillin. Hold off Rocephin for now. Check sedimentation rate, C-reactive protein, CBC with diff. Obtain DEVAN and sedimentation rate, C-reactive protein. Recheck chemistry panel. We will follow with you. MD MARLENA Kasper/SIGIFREDO /[id number]
--- NOTE | 2019-12-27 22:24 | NUR ---
Patient arrived to unit in stable condition, alert and oriented, no s/s of distress at this time. Bed locked and in lowest position, side rails up x3, call light placed within reach. Patient instructed to call for assistance if needed, verbalized understanding. All safety measures in place. Will continue to monitor.
[2019-12-27 22:42] VITALS: BP 138/63
[2019-12-27] MEDS: AMPICILLIN SOD 2 GM/NS 100ML 100 ML IV SCH (22:52)
[2019-12-27] MEDS ORDERED: METOPROLOL SUCC50 MG PO (22:55)
[2019-12-27] MEDS ORDERED: ASPIRIN EC81 MG PO (22:55)
[2019-12-27] MEDS ORDERED: ATENOLOL50 MG PO (22:55)
[2019-12-27] MEDS ORDERED: LATANOPROST2.5 ML OS (22:55)
--- NOTE | 2019-12-27 23:12 | NUR ---
Patient reporting history of glaucoma and cataract surgery to left eye.
[2019-12-28 00:13] VITALS: BP 93/52
[2019-12-28 04:00] VITALS: BP 107/60
[2019-12-28 05:07] LABS: BASOPHILS % 0.2 % (0.0-1.0); HEMATOCRIT 32.8 % (38.2-49.6); HEMOGLOBIN 10.5 g/dL (14.0-18.0); LYMPHOCYTES # (AUTO) 1.4 (1.0-3.2); LYMPHOCYTES % 22.3 % (18.0-39.1); MEAN CORPUSCULAR VOLUME 96.8 fL (81-99); MONOCYTES # (AUTO) 0.5 (0.2-0.8); MONOCYTES % 8.1 % (4.4-11.3); NEUTROPHILS # (AUTO) 4.3 (2.1-6.9); NEUTROPHILS % 69.1 % (38.7-80.0); PLATELET COUNT 99 x10e3/uL (140-360); RED BLOOD COUNT 3.39 x10e6/uL (4.3-5.7); RED CELL DISTRIBUTION WIDTH 15.2 % (11.7-14.4)
[2019-12-28] MEDS: AMPICILLIN SOD 2 GM/NS 100ML 100 ML IV SCH ×2 (05:17→14:18)
[2019-12-28 05:34] LABS: ALBUMIN 2.8 g/dL (3.5-5.0); ALBUMIN/GLOBULIN RATIO 0.7 (0.8-2.0); ANION GAP 12.1 mmol/L (8-16); CALCIUM 7.9 mg/dL (8.4-10.2); CREATININE, SERUM 1.21 mg/dL (0.72-1.25); POTASSIUM 4.1 mmol/L (3.5-5.1)
[2019-12-28 06:10] LABS: PHOSPHORUS 3.6 MG/DL (2.3-4.7)
[2019-12-28 08:04] VITALS: BP 104/55
[2019-12-28] MEDS: FAMOTIDINE 20 MG/2 ML VIAL IV SCH (08:58)
[2019-12-28] MEDS: AMIODARONE HCL 200 MG TAB PO SCH ×2 (08:58→17:00)
[2019-12-28] MEDS: APIXABAN 5 MG TABLET PO SCH ×2 (08:58→18:31)
[2019-12-28] MEDS ORDERED: ATORVASTATIN 20 MG TAB PO SCH (09:00)
[2019-12-28] MEDS ORDERED: TAMSULOSIN HCL 0.4 MG CAP PO SCH (09:00)
[2019-12-28] MEDS ORDERED: FUROSEMIDE 40 MG TAB PO SCH (09:00)
[2019-12-28] MEDS ORDERED: ALLOPURINOL 300 MG TAB PO SCH (09:00)
[2019-12-28] MEDS: ACETAMINOPHEN 325 MG TAB PO PRN (09:00)
[2019-12-28] MEDS ORDERED: ATORVASTATIN 40 MG TAB PO SCH (09:00)
[2019-12-28 09:15] VITALS: BP 104/55
--- NOTE | 2019-12-28 09:31 | Consultation ---
DATE OF CONSULTATION: Pulmonary Critical Care CHIEF COMPLAINT: Positive COVID test and fever. HISTORY OF PRESENT ILLNESS: The patient is a 64-year-old man. He has a history of biventricular pacemaker and AICD. He also has a history of chronic systolic congestive heart failure and chronic renal insufficiency. He was hospitalized from December 15 to December 20, 2019 at [facility] with fever secondary to bacteremia. He was sent home with a PICC line, has been on antibiotics at home. He now returns with fever for one day. He had a day of diarrhea, but this has improved. He does not complain of cough or difficulty breathing. He denies any chest pain. PAST SURGICAL HISTORY: 1. Status post biventricular pacemaker with AICD. 2. Status post coronary artery stent. 3. Status post abdominal aortic aneurysm repair. 4. Status post back surgery. PAST MEDICAL HISTORY: 1. Hypertension. 2. Atrial fibrillation. 3. Chronic systolic congestive heart failure. 4. Chronic renal insufficiency. FAMILY HISTORY: Significant for diabetes as well as stroke. SOCIAL HISTORY: The patient is not an active smoker or drinker. ALLERGIES: THE PATIENT IS ALLERGIC TO NIFEDIPINE. REVIEW OF SYSTEMS: He reports fevers. There is no headache. He is not having any neck pain or chest pain. He denies any cough. He is not having any abdominal pain. He has no nausea or vomiting. He has no leg edema. PHYSICAL EXAMINATION: VITAL SIGNS: The blood pressure is 104/55, saturation is 96%, and the temperature is 100.8. The pulse is 63. HEENT: Shows no facial swelling or erythema. CARDIAC: Reveals regular rate and rhythm with normal S1 and S2. LUNGS: Auscultation of lungs reveals rhonchus breath sounds bilaterally. There is no wheezing. ABDOMEN: Soft, nontender. There is no rebound or guarding. EXTREMITIES: Shows no leg edema or calf tenderness. There is no cyanosis or clubbing. SKIN: Shows no rashes. LABORATORY DATA: White blood cell count is 6.2 and hemoglobin is 10.5. The platelet count is 99. The BUN to creatinine ratio is 24 to 1.2, and the electrolytes are within normal limits. Albumin is 2.8. RADIOGRAPHIC DATA: Chest x-ray shows AICD in place as well as a PICC line. There were no acute abnormalities. IMPRESSION: 1. Viral pneumonia and coronavirus disease - 19 infection. 2. Resolving enterococcal bacteremia. 3. Chronic systolic congestive heart failure. 4. Paroxysmal atrial fibrillation. 5. Chronic renal insufficiency, stage III. 6. Diabetes. 7. Prostatic hypertrophy. PLAN: 1. Continue amiodarone and Eliquis. 2. Lasix as needed. 3. Continue current antibiotics. 4. Await C. difficile toxin. 5. Discuss PICC line and continuation of antibiotics with Infectious Disease. Rickey Van MD [facility]/MODL /[id number]
[2019-12-28] MEDS: CHOLESTYRAMINE 4 GM PACKET PO SCH ×3 (10:00→18:00)
[2019-12-28 11:40] VITALS: BP 93/61
[2019-12-28 15:26] VITALS: BP 102/54
[2019-12-28] MEDS ORDERED: DOXYCYCLINE HY100 MG PO (17:31)
--- NOTE | 2019-12-28 19:43 | NUR ---
patient discharged. PICC line removed, tip intact. bleeding controlled and dressing applied. piv removed, bleeding controlled and dressing applied. patient given prescription and discharge instructions. pt aware of follow up appt needed. patient wheeled to [email or web address] car in mask in stable condition.
--- NOTE | 2019-12-28 20:43 | Progress Note ---
DATE: SUBJECTIVE: Mr. Albert is feeling better. There is no new complaint. PHYSICAL EXAMINATION: VITAL SIGNS: His vitals are stable. Afebrile. HEENT: He is not icteric. NECK: Supple. CHEST: Clear. ABDOMEN: Soft. IMPRESSION: Fever on admission, COVID-19 clinically stable. There is no pneumonia. The patient will discontinue his PICC line. We will discharge with oral doxycycline 100 mg p.o. b.i.d. He is to see me back in 2 weeks. He is to call me if any worsening condition. MD MARLENA Kasper/SIGIFREDO /[id number]
--- NOTE | 2019-12-29 12:06 | Discharge Summary ---
ADMISSION DIAGNOSES: 1. Coronavirus disease-19 pneumonia, present on admission. 2. Enterococcus bacteremia present on admission. 3. Chronic kidney disease 3. 4. Hypertension with chronic kidney disease 3. 5. Chronic systolic congestive heart failure. 6. Atrial fibrillation. 7. Benign prostatic hypertrophy. DISCHARGE DIAGNOSES: 1. Coronavirus disease-19 pneumonia, present on admission. 2. Enterococcus bacteremia present on admission. 3. Chronic kidney disease 3. 4. Hypertension with chronic kidney disease 3. 5. Chronic systolic congestive heart failure. 6. Atrial fibrillation. 7. Benign prostatic hypertrophy. HISTORY: Hypertension, CKD-3, chronic systolic CHF, BPH, atrial fibrillation, CAD with PCI, gout. SURGICAL HISTORY: ICD, back surgery, abdominal aortic repair. FAMILY HISTORY: The patient's mom, sister and brother have diabetes. The patient's sister had a stroke. SOCIAL HISTORY: Noncontributory. HOSPITAL COURSE: A 64-year-old male admits with complaints of fever of 100.9 at home yesterday per home health nurse. He is currently being treated with IV Rocephin and ampicillin for bacteremia due to enterococcus. He denies shortness of breath and dyspnea on exertion. On admission, the patient is on room air and afebrile. The patient's coronavirus came back positive. Chest x-ray showed multiple abnormal finding, but no definite acute cardiopulmonary disease on exam. Preliminary urine culture was negative. WBC is within normal limits. The patient is requesting to DC his PICC line and change antibiotics to p.o., so per Infectious Disease recommendation, the PICC line can be DC'd and he can take p.o. doxycycline for two more weeks. He will follow up with Dr. Slade and primary care in 1 to 2 weeks. The patient understands instructions and agrees to plan. Vital signs stable. The patient is afebrile. Dictated by Mirta Cardenas NP MD JAYSON Dejesus/MODL /[id number]
== END 2019-12-28 19:45 | disposition home or self-care (01) ==
LOC: ER 11:38 → ERHOLD 14:32 → INTOOBSV 14:32 → MED/SURG3 19:09 → IMCU 22:16
PROVIDERS: ADMIT Internal Medicine; ATTEND Internal Medicine
DX: U07.1 COVID-19 (principal); I25.10 Atherosclerotic heart disease of native coronary artery without angina pectoris; N40.0 Benign prostatic hyperplasia without lower urinary tract symptoms; E11.22 Type 2 diabetes mellitus with diabetic chronic kidney disease; I13.0 Hypertensive heart and chronic kidney disease with heart failure and stage 1 through stage 4 chronic kidney disease, or unspecified chronic kidney disease; N18.3 Chronic kidney disease, stage 3 (moderate); I50.22 Chronic systolic (congestive) heart failure; I48.0 Paroxysmal atrial fibrillation; M10.9 Gout, unspecified; Z98.61 Coronary angioplasty status; Z87.891 Personal history of nicotine dependence; Z95.810 Presence of automatic (implantable) cardiac defibrillator; Z83.3 Family history of diabetes mellitus; Z82.3 Family history of stroke; Z88.8 Allergy status to other drugs, medicaments and biological substances; R78.81 Bacteremia; B95.2 Enterococcus as the cause of diseases classified elsewhere
CPT/HCPCS: 36415; 71045; 80053; 81001; 82550; 82553; 83735; 84100; 84484; 85025; 87040; 87086; 87493; 87635; 99284; G0378; J0360; J0696; J2405; J7050